=== PATIENT | male | born 1965 | race Caucasian/White ===

== ENCOUNTER 2019-01-20 04:08 | Emergency (ER) | payer OTHER, SELFPAY ==
--- NOTE | 2019-01-20 04:09 | ED.GENADULT ---
HPI - General Adult General Chief complaint: Extremity Problem,Nontraumatic Stated complaint: Right knee and back pain Time Seen by Provider: 01/20/19 04:09 Source: patient Mode of arrival: wheelchair Limitations: no limitations History of Present Illness HPI narrative: 53-year-old male who has had a liver transplant in the past here for evaluation of right knee pain and back pain. Patient does have chronic back pain however he states the pain is he is having now is different from his normal back pain. He also is complaining of right knee pain. He has no specific trauma however states that he has been working out in the yard recently. He also states that he had to move a 10 x 10 wooden wall recently. He states he has had pain for the past several days however things got worse last evening so he came in for evaluation. No fevers. Related Data Home Medications Medication Instructions Recorded Confirmed metoprolol tartrate 25 mg PO BID #0 11/03/17 mycophenolate sodium [Myfortic] 360 mg PO #0 11/03/17 ursodiol [Actigall] 300 mg PO #0 11/03/17 Previous Rx's Medication Instructions Recorded ondansetron 4 mg SUBLINGUAL Q6HP PRN #10 tab 06/02/17 prednisone 20 mg PO DAILY 5 Days #5 tab 01/20/19 Allergies Allergy/AdvReac Type Severity Reaction Status Date / Time venom-honey bee Allergy Severe Unverified 11/21/17 12:17 [BEE VENOM (HONEY BEE)] codeine Allergy Unknown Unverified 11/21/17 12:17 NYQUIL Allergy Unknown Uncoded 11/21/17 12:17 Review of Systems Constitutional Denies fever(s), Denies frequent falls and Denies headache(s) ENT Ears, Nose, Mouth, and Throat: Denies headache(s) Cardiovascular Denies chest pain and Denies dyspnea Respiratory Denies dyspnea Gastrointestinal Gastrointestinal: Denies abdominal pain, Denies nausea and Denies vomiting Musculoskeletal Reports back pain and Reports arthralgias (Right knee) Integumentary/Breasts Denies rash Neurologic Denies behavioral changes, Denies frequent falls and Denies headache(s) Psychiatric Denies behavioral changes Hematologic/Lymphatic Denies easy bleeding and Denies easy bruising [facility], [facility] Medical History Hepatitis C (Acute) Liver cancer (Acute) Surgical History Liver transplant recipient (Acute) Social History Smoking Status: Current every day smoker Social History Smoking Status: Current every day smoker Exam Initial Vital Signs Initial Vital Signs: Vital Signs Temperature 97.8 F 01/20/19 04:15 Pulse Rate 67 01/20/19 04:15 Respiratory Rate 16 01/20/19 04:15 Blood Pressure 127/87 01/20/19 04:15 Pulse Oximetry 95 01/20/19 04:15 Const General: cooperative, comfortable, well developed, well groomed and No acute distress Orientation: alert, awake and oriented x3 HENMT Head: normal to inspection and normocephalic Resp Effort & Inspection: normal respiratory effort Auscultation: clear to auscultation bilaterally Cardio Rate: regular rate Rhythm: regular rhythm GI Inspection: non-distended Palpation: soft, No firm and No tender Back/Spine/Pelvis Thoracic/Lumbar Spine: lumbar spinal tenderness Skin Lesions: no lesions Rashes: no rashes Neuro General: alert and awake Cognition: normal cognition Speech: speech normal Extrem Other: Tenderness to palpation over the pes anserinus also on the posterior aspect of the right knee over the hamstring. Also tenderness palpation along the lateral joint line of the right knee. Psych Appearance: grossly normal and well kempt Course Orders Ordered: ED Orders 01/20/19 04:23 XR knee RT 3V Stat 01/20/19 05:09 Basic Metabolic Panel Stat Complete Blood Count AUTO DIFF Stat Partial Thromboplastin Time Stat Prothrombin Time INR Stat Vital Signs - 8 hr 01/20/19 04:15 Temperature 97.8 F Pulse Rate 67 Respiratory Rate 16 Blood Pressure 127/87 Pulse Oximetry 95 Medical Decision Making Lab Data Lab results reviewed: Yes I reviewed the patient's lab results. Result diagrams: 01/20/19 05:09 01/20/19 05:09 Lab Results 01/20/19 01/20/19 01/20/19 Range/Units 05:09 05:09 05:09 WBC 8.3 (4.5-11.0) X10^3/uL RBC 3.25 L (4.5-5.9) X10^6/uL Hgb 11.3 L (13.5-17.5) g/dL Hct 33.7 L (41-53) % MCV 103.4 H (80-100) fL MCH 34.7 H (26-34) PG MCHC 33.5 (30-36) % RDW 15.4 H (11.6-14.8) % Plt Count 145 L (150-400) X10^3/uL Neut % (Auto) 35.6 L (50-75) % Lymph % (Auto) 48.8 H (25-40) % [place] % (Auto) 12.0 (3-14) % Eos % (Auto) 0.9 L (2-4) % Baso % (Auto) 2.7 H (0-2) % Neut # (Auto) 2900 (6517-8120) /uL Lymph # (Auto) 4000 (2566-8837) /uL [place] # (Auto) 1000 H (0-900) /uL Eos # (Auto) 100 (0-450) /uL Baso # (Auto) 200 H (0-100) /uL PT 11.4 (10.1-12.7) SECONDS INR 1.0 (0.9-1.3) APTT 34 (26.4-36.2) SECONDS Sodium 136 L (137-145) mmol/L Potassium 4.0 (3.4-5.1) mmol/L Chloride 100 (98-107) mmol/L Carbon Dioxide 27 (22-32) mmol/L BUN 40 H (9-20) mg/dL Creatinine 2.50 H (0.66-1.25) mg/dL Estimated GFR 26.9 L (>60) mL/min BUN/Creatinine Ratio 16.0 (6-22) Glucose 97 (70-100) mg/dL Calcium 8.6 (8.4-10.2) mg/dL Imaging Data X-ray right knee: Attestation: I personally reviewed and interpreted this imaging study as follows: My impression: No fracture, no dislocation, MDM Narrative Medical decision making narrative: Patient does have tenderness to palpation in the distribution of the semimembranosus. No fevers. X-ray of his knee is negative. No concerning symptoms for fracture. Will hold on radiologic studies of his back. He is allergic to anything with codeine and that includes Percocet and Vicodin. He cannot take Tylenol 3. He already has a fentanyl patch on for his back pain. He is also already on gabapentin. Informed him he needed to continue these medications. He states that when he has had similar pain in the back is been on a short course of steroids which has helped his symptoms. I will give him a few days of this. He is going to contact his primary doctor for follow-up. Discharge Plan Departure Patient Disposition: Home Clinical Impression: Back pain Qualifiers: Back pain location: low back pain Chronicity: unspecified Back pain laterality: unspecified Sciatica presence: unspecified whether sciatica present Qualified Code(s): M54.5 - Low back pain Knee pain Qualifiers: Chronicity: acute Laterality: right Qualified Code(s): M25.561 - Pain in right knee Instructions: DI for Low Back Pain, Activity May Be Better then Rest for Low Back Pain Recovery Activity Restrictions/Additional Instructions: Take all of your medications as directed. Contact your primary care doctor for a follow-up. Return to the emergency department for any new or worsening symptoms Prescriptions: New prednisone 20 mg tablet 20 mg PO DAILY 5 Days Qty: 5 RF: 0 No Action ondansetron 4 MG tablet,disintegrating 4 mg Sublingual Q6HP PRNQty: 10 RF: 0 mycophenolate sodium [Myfortic] 360 MG tablet,delayed release (DR/EC) 360 mg PO Qty: 0 RF: 0 ursodiol [Actigall] 300 MG capsule 300 mg PO Qty: 0 RF: 0 metoprolol tartrate 25 MG tablet 25 mg PO BID Qty: 0 RF: 0 Referrals: Natacha Rowley MD [Primary Care Provider] -
[2019-01-20 04:15] VITALS: BP 127/87; PULSE 67; RESP 16; TEMP 36.6; O2SAT 95; BMI 37.1
--- NOTE | 2019-01-20 04:23 | DI.RAD.S_ITS ---
PROCEDURE: XR KNEE RT 3V INDICATIONS: pain after fall TECHNIQUE: 3 views of the knee were acquired. COMPARISON: None. FINDINGS: Bones: No fractures or dislocations. No suspicious bony lesions. Soft tissues: No joint effusion. No suspicious soft tissue calcifications. IMPRESSION: No fracture. No osseous lesion. If symptoms and/or clinical suspicion for pathology persists, further assessment with repeat radiographs (7-10 days) or advanced imaging (e.g. CT, MRI or bone scan) may be helpful. Dictated by: Josefina Riddle MD, PhD on 01/20/2019 at 8:37 Approved by: Josefina Riddle MD, PhD on 01/20/2019 at 8:38
--- NOTE | 2019-01-20 04:35 | PC.NURSE ---
Pt reported that he is bruising more than usual. Dr Bo notified, orders for blood test received.
[2019-01-20 05:19] LABS: Add Manual Diff / Slide Review NO; Basophils Absolute Auto 200 /uL (0-100); Basophils Percent Auto 2.7 % (0-2); Eosinophils Absolute Auto 100 /uL (0-450); Eosinophils Percent Auto 0.9 % (2-4); Hematocrit 33.7 % (41-53); Hemoglobin 11.3 g/dL (13.5-17.5); Lymphocytes Absolute Auto 4000 /uL (1100-4500); Lymphocytes Percent Auto 48.8 % (25-40); Mean Corpuscular HGB Conc 33.5 % (30-36); Mean Corpuscular Hemoglobin 34.7 PG (26-34); Mean Corpuscular Volume 103.4 fL (80-100); Monocytes Absolute Auto 1000 /uL (0-900); Neutrophils Absolute Auto 2900 /uL (1500-7000); Neutrophils Percent Auto 35.6 % (50-75); Platelet Count 145 X10^3/uL (150-400); Red Blood Cell Count 3.25 X10^6/uL (4.5-5.9); Red Cell Distribution Width 15.4 % (11.6-14.8); White Blood Cell Count 8.3 X10^3/uL (4.5-11.0)
[2019-01-20 05:25] LABS: Prothrombin Time 11.4 SECONDS (10.1-12.7)
[2019-01-20 05:27] LABS: PTT Partial Thromboplastin Tim 34 SECONDS (26.4-36.2)
[2019-01-20 05:29] LABS: Blood Urea Nitrogen 40 mg/dL (9-20); Calcium 8.6 mg/dL (8.4-10.2); Carbon Dioxide 27 mmol/L (22-32); Chloride 100 mmol/L (98-107); Estimated Glomerular Filt Rate 26.9 mL/min (>60); Glucose 97 mg/dL (70-100); HEMOLYSIS < 15 (0-50); Sodium 136 mmol/L (137-145)
[2019-01-20 05:46] VITALS: BP 102/62; PULSE 78; RESP 17; O2SAT 95
== END 2019-01-20 05:55 | disposition home or self-care (01) ==
PROVIDERS: Emergency Provider Emergency Medicine; Family Provider Internal Medicine; PCP Internal Medicine
DX: M54.5 Low back pain (principal); M25.561 Pain in right knee
CPT/HCPCS: 36415; 73562; 80048; 85025; 85610; 85730; 99282; 99284

== ENCOUNTER 2020-01-14 16:25 | Emergency (ER) | payer OTHER, MEDICAID, SELFPAY ==
[2020-01-14] VITALS (9 sets, daily range): BP systolic 95–122; BP diastolic 54–76; PULSE 68–98; RESP 12–24; TEMP 36.9; O2SAT 93–100; BMI 31.1
[2020-01-14 16:56] LABS: Add Manual Diff / Slide Review NO; Basophils Absolute Auto 100 /uL (0-100); Eosinophils Absolute Auto 0 /uL (0-450); Eosinophils Percent Auto 0.3 % (2-4); Hematocrit 33.3 % (41-53); Hemoglobin 11.3 g/dL (13.5-17.5); Lymphocytes Absolute Auto 5100 /uL (1100-4500); Lymphocytes Percent Auto 46.3 % (25-40); Mean Corpuscular HGB Conc 33.9 % (30-36); Mean Corpuscular Hemoglobin 33.9 PG (26-34); Mean Corpuscular Volume 99.9 fL (80-100); Monocytes Absolute Auto 1200 /uL (0-900); Monocytes Percent Auto 11.2 % (3-14); Neutrophils Absolute Auto 4500 /uL (1500-7000); Neutrophils Percent Auto 41.2 % (50-75); Platelet Count 106 X10^3/uL (150-400); Red Blood Cell Count 3.34 X10^6/uL (4.5-5.9); Red Cell Distribution Width 19.1 % (11.6-14.8)
[2020-01-14] MEDS: SODIUM CHLORIDE 0.9% 1,000 ML 1000 ML IV (16:59)
[2020-01-14 17:07] LABS: Alanine Aminotransferase 33 IU/L (<50); Albumin 3.4 g/dL (3.5-5.0); Albumin Globulin Ratio 0.9 (1.0-2.8); Alkaline Phosphatase 326 U/L (38-126); Aspartate Aminotransferase 76 IU/L (17-59); BUN Creatinine Ratio 15.1 (6-22); Bilirubin Total 1.8 mg/dL (0.2-1.3); Blood Urea Nitrogen 36 mg/dL (9-20); Calcium 8.7 mg/dL (8.4-10.2); Carbon Dioxide 22 mmol/L (22-32); Chloride 105 mmol/L (98-107); Estimated Glomerular Filt Rate 28.4 mL/min (>60); Globulin 3.8 g/dL (1.7-4.1); Glucose 140 mg/dL (70-100); HEMOLYSIS < 15 (0-50); Lipase 20 U/L (23-300); Potassium 3.4 mmol/L (3.4-5.1); Sodium 137 mmol/L (137-145); Total Protein 7.2 g/dL (6.3-8.2)
[2020-01-14 17:26] LABS: Prothrombin Time 11.2 SECONDS (10.1-12.7)
--- NOTE | 2020-01-14 17:26 | ED_ITS ---
HPI - General Adult <Juan F Bo DO - Last Filed: 01/15/20 07:10> General Chief complaint: Syncope Stated complaint: syncopal episodes x 2 today/dizzy standing Time Seen by Provider: 01/14/20 17:05 Source: patient Mode of arrival: EMS Limitations: no limitations History of Present Illness HPI narrative: 54-year-old male history of liver transplant secondary to hepatitis-C/cirrhosis/cancer after a blood transfusion in the 80s. This was performed approximately 7 years ago. He is followed by [facility]. Approximately 6 weeks ago patient was admitted to [facility] for dizziness. Spent several days in the hospital. Was found that his ammonia level was elevated. He has been on lactulose since then. He states that he takes lactulose once a day and has multiple loose bowel movements a day. He also admits to drinking alcohol. He states he is here that because the past several days he has had dizziness and passing out upon standing. He denies any prodromal symptoms except feeling very lightheaded. No chest pain or shortness of breath or palpitations. He states that he potentially can prevent the symptoms from happening if he stands up slowly but he does admit that it can happen even after he has been standing for short period of time. He states he has had decreased oral intake of both food and fluid recently. He states that his falls has caused him to hit his head and he has a bruise in the left side of his head. He also complains of right-sided jaw pain which causes him to have problems eating. Related Data Home Medications Medication Instructions Recorded Confirmed B complex-vitamin C-folic acid 1 tab PO DAILY 01/14/20 01/14/20 [Kellie-Ramila] acetaminophen [Tylenol] 650 mg PO Q8HR PRN 01/14/20 01/14/20 allopurinol 100 mg PO DAILY 01/14/20 01/14/20 cyclobenzaprine 10 mg PO BEDTIME PRN 01/14/20 01/14/20 cyclosporine 25 mg PO BID 01/14/20 01/14/20 cyclosporine modified 25 mg PO BID 01/14/20 01/14/20 docusate sodium 250 mg PO BID PRN 01/14/20 01/14/20 duloxetine [Cymbalta] 20 mg PO DAILY 01/14/20 01/14/20 fentanyl See Rx Instructions .ROUTE .COMPLEX 01/14/20 01/14/20 furosemide 20 mg PO DAILY 01/14/20 01/14/20 gabapentin 300 mg PO BID 01/14/20 01/14/20 hydroxyzine pamoate [Vistaril] 25 mg PO BEDTIME PRN 01/14/20 01/14/20 lactulose 30 ml PO TID 01/14/20 01/14/20 lidocaine [Lidoderm] 1 patch TOPICAL DAILY 01/14/20 01/14/20 metoprolol succinate 75 mg PO DAILY 01/14/20 01/14/20 mycophenolate mofetil [CellCept] 500 mg PO BID 01/14/20 01/14/20 mycophenolate sodium [Myfortic] 360 mg PO BID 01/14/20 01/14/20 naloxone [Narcan] 1 spray INTRANASAL NOW PRN 01/14/20 01/14/20 ondansetron HCl [Zofran] 4 mg PO Q8H PRN 01/14/20 01/14/20 pantoprazole [Protonix] 20 mg PO DAILY 01/14/20 01/14/20 pyridoxine (vitamin B6) 50 mg PO DAILY 01/14/20 01/14/20 quetiapine [Seroquel] 25 mg PO BEDTIME 01/14/20 01/14/20 rifaximin 550 mg PO BID 01/14/20 01/14/20 ursodiol 300 mg PO BID 01/14/20 01/14/20 Allergies Allergy/AdvReac Type Severity Reaction Status Date / Time venom-honey bee Allergy Severe Wheezing Unverified 01/14/20 21:48 [BEE VENOM (HONEY BEE)] codeine Allergy Unknown Unverified 11/21/17 12:17 NSAIDS (Non-Steroidal Allergy Verified 01/14/20 21:48 Anti-Inflamma adhesive tape AdvReac Verified 01/14/20 21:48 copper AdvReac Verified 01/14/20 21:48 dextromethorphan AdvReac Verified 01/14/20 21:48 morphine AdvReac Vomiting Verified 01/14/20 21:48 oxycodone AdvReac Vomiting Verified 01/14/20 21:48 pseudoephedrine AdvReac Verified 01/14/20 21:48 tizanidine AdvReac Verified 01/14/20 21:48 NYQUIL Allergy Unknown Uncoded 11/21/17 12:17 Review of Systems <DO Abdiaziz Rocha Last Filed: 01/15/20 07:10> Constitutional Constitutional: Denies body ache(s), Reports fatigue, Denies fever(s), Reports frequent falls and Denies headache(s) Eyes Eyes: Denies change in vision ENT Ears, Nose, Mouth, and Throat: Denies vertigo, Reports dizziness and Denies headache(s) Comments: Right-sided jaw pain Cardiovascular Cardiovascular: Denies chest pain and Denies dyspnea Comments: No palpitations Respiratory Respiratory: Denies cough and Denies dyspnea Gastrointestinal Gastrointestinal: Denies abdominal pain, Denies diarrhea, Denies nausea and Denies vomiting Genitourinary Genitourinary: Denies dysuria Genitourinary: Denies dysuria Musculoskeletal Musculoskeletal: Denies back pain and Denies myalgias Integumentary/Breasts Skin/Breast: Denies lesions and Denies rash Neurologic Neurologic: Reports behavioral changes, Denies vertigo, Reports dizziness, Reports frequent falls, Denies headache(s) and Denies convulsions Psychiatric Psychiatric: Reports behavioral changes Endocrine Endocrine: Reports fatigue Hematologic/Lymphatic Hematologic/Lymphatic: Denies easy bleeding and Denies easy bruising Allergic/Immunologic Allergic/Immunologic: Denies urticaria Patient History <DO Abdiaziz Rocha Last Filed: 01/15/20 07:10> Medical History Hepatitis C (Acute) Liver cancer (Acute) Surgical History Liver transplant recipient (Acute) Social History Smoking Status: Current some day smoker Smoking Status: Current some day smoker alcohol intake frequency: a few times a week Alcohol type: hard liquor Substance Use Type: marijuana Exam <DO Abdiaziz Rocha Last Filed: 01/15/20 07:10> Initial Vital Signs Initial Vital Signs: Vital Signs Temperature 98.4 F 01/14/20 16:30 Pulse Rate 94 H 01/14/20 16:30 Respiratory Rate 18 01/14/20 16:30 Blood Pressure 106/68 01/14/20 16:30 Pulse Oximetry 94 01/14/20 16:30 Const General: No acute distress Limitations: mental status not altered HENMT Head: normal to inspection and normocephalic Ears: TM's normal bilaterally Nose: external nose normal Face and sinus: other (Fullness right-sided face over TMJ) Mouth: oral mucosae normal Eyes Pupils: PERRL Resp Effort & Inspection: normal respiratory effort Auscultation: clear to auscultation bilaterally Cardio Rate: regular rate Rhythm: regular rhythm GI Inspection: non-distended Palpation: soft Skin Lesions: no lesions Rashes: no rashes Neuro General: patient alert, patient awake and patient oriented x3 Cognition: normal cognition Speech: speech normal Extrem General: normal to inspection and capillary refill normal Psych Appearance: grossly normal and well kempt <Wanda Tang MD - Last Filed: 01/14/20 21:49> Initial Vital Signs Initial Vital Signs: Vital Signs Temperature 98.4 F 01/14/20 16:30 Pulse Rate 94 H 01/14/20 16:30 Respiratory Rate 18 01/14/20 16:30 Blood Pressure 106/68 01/14/20 16:30 Pulse Oximetry 94 01/14/20 16:30 Scores <Juan F Bo DO - Last Filed: 01/15/20 07:10> GCS Celina coma scale eye opening: Spontaneous Celina coma scale verbal response: Orientated Atul coma scale motor response: Obey commands Atul coma scale total score: 15 Course <Juan F Bo DO - Last Filed: 01/15/20 07:10> Orders Ordered: Discontinued Medications Sodium Chloride (Normal Saline 0.9%) 1,000 mls @ 1,000 mls/hr IV BOLUS ONE Stop: 01/14/20 17:37 Last Infusion: 01/14/20 19:13 Dose: 0 mls/hr Documented by: Admin: 01/14/20 16:59 Dose: 1,000 mls/hr Documented by: SUSANNAH Sodium Chloride (Normal Saline 0.9%) 1,000 mls @ 125 mls/hr IV CONT JUNIOR Last Infusion: 01/14/20 21:35 Dose: 0 mls/hr Documented by: Admin: 01/14/20 19:14 Dose: 125 mls/hr Documented by: SUSANNAH Vital Signs Vital signs: Vital Signs - 8 hr 01/14/20 16:30 01/14/20 17:40 01/14/20 18:43 Temperature 98.4 F Pulse Rate 94 H 85 68 Pulse Rate [Orthostatic Lying] Pulse Rate [Orthostatic Sitting] Pulse Rate [Orthostatic Standing] Respiratory Rate 18 22 16 Blood Pressure 106/68 Blood Pressure [Left Arm] 119/66 95/54 L Blood Pressure [Orthostatic Lying] Blood Pressure [Orthostatic Sitting] Blood Pressure [Orthostatic Standing] Pulse Oximetry 94 97 98 01/14/20 19:00 01/14/20 19:30 01/14/20 20:18 Temperature Pulse Rate 79 84 80 Pulse Rate [Orthostatic Lying] Pulse Rate [Orthostatic Sitting] Pulse Rate [Orthostatic Standing] Respiratory Rate 16 12 24 Blood Pressure Blood Pressure [Left Arm] 101/63 103/64 107/68 Blood Pressure [Orthostatic Lying] Blood Pressure [Orthostatic Sitting] Blood Pressure [Orthostatic Standing] Pulse Oximetry 93 95 94 01/14/20 21:25 01/14/20 21:42 Temperature 98.4 F Pulse Rate 79 Pulse Rate [Orthostatic Lying] 88 Pulse Rate [Orthostatic Sitting] 92 H Pulse Rate [Orthostatic Standing] 98 H Respiratory Rate 16 Blood Pressure Blood Pressure [Left Arm] 119/76 Blood Pressure [Orthostatic Lying] 115/72 Blood Pressure [Orthostatic Sitting] 121/72 Blood Pressure [Orthostatic Standing] 122/69 Pulse Oximetry 98 <Wanda Tang MD - Last Filed: 01/14/20 21:49> Orders Ordered: Discontinued Medications Sodium Chloride (Normal Saline 0.9%) 1,000 mls @ 1,000 mls/hr IV BOLUS ONE Stop: 01/14/20 17:37 Last Infusion: 01/14/20 19:13 Dose: 0 mls/hr Documented by: Admin: 01/14/20 16:59 Dose: 1,000 mls/hr Documented by: SUSANNAH Sodium Chloride (Normal Saline 0.9%) 1,000 mls @ 125 mls/hr IV CONT JUNIOR Last Infusion: 01/14/20 21:35 Dose: 0 mls/hr Documented by: Admin: 01/14/20 19:14 Dose: 125 mls/hr Documented by: SUSANNAH Vital Signs Vital signs: Vital Signs - 8 hr 01/14/20 16:30 01/14/20 17:40 01/14/20 18:43 Temperature 98.4 F Pulse Rate 94 H 85 68 Pulse Rate [Orthostatic Lying] Pulse Rate [Orthostatic Sitting] Pulse Rate [Orthostatic Standing] Respiratory Rate 18 22 16 Blood Pressure 106/68 Blood Pressure [Left Arm] 119/66 95/54 L Blood Pressure [Orthostatic Lying] Blood Pressure [Orthostatic Sitting] Blood Pressure [Orthostatic Standing] Pulse Oximetry 94 97 98 01/14/20 19:00 01/14/20 19:30 01/14/20 20:18 Temperature Pulse Rate 79 84 80 Pulse Rate [Orthostatic Lying] Pulse Rate [Orthostatic Sitting] Pulse Rate [Orthostatic Standing] Respiratory Rate 16 12 24 Blood Pressure Blood Pressure [Left Arm] 101/63 103/64 107/68 Blood Pressure [Orthostatic Lying] Blood Pressure [Orthostatic Sitting] Blood Pressure [Orthostatic Standing] Pulse Oximetry 93 95 94 01/14/20 21:25 01/14/20 21:42 Temperature 98.4 F Pulse Rate 79 Pulse Rate [Orthostatic Lying] 88 Pulse Rate [Orthostatic Sitting] 92 H Pulse Rate [Orthostatic Standing] 98 H Respiratory Rate 16 Blood Pressure Blood Pressure [Left Arm] 119/76 Blood Pressure [Orthostatic Lying] 115/72 Blood Pressure [Orthostatic Sitting] 121/72 Blood Pressure [Orthostatic Standing] 122/69 Pulse Oximetry 98 Medical Decision Making <Juan F Bo, - Last Filed: 01/15/20 07:10> Lab Data Result diagrams: 01/14/20 16:45 01/14/20 16:45 Labs: Lab Results 01/14/20 01/14/20 01/14/20 Range/Units 16:45 16:45 16:45 WBC 11.0 (4.5-11.0) X10^3/uL RBC 3.34 L (4.5-5.9) X10^6/uL Hgb 11.3 L (13.5-17.5) g/dL Hct 33.3 L (41-53) % MCV 99.9 (80-100) fL MCH 33.9 (26-34) PG MCHC 33.9 (30-36) % RDW 19.1 H (11.6-14.8) % Plt Count 106 L (150-400) X10^3/uL Neut % (Auto) 41.2 L (50-75) % Lymph % (Auto) 46.3 H (25-40) % Wake % (Auto) 11.2 (3-14) % Eos % (Auto) 0.3 L (2-4) % Baso % (Auto) 1.0 (0-2) % Neut # (Auto) 4500 (9071-3576) /uL Lymph # (Auto) 5100 H (4144-0655) /uL Wake # (Auto) 1200 H (0-900) /uL Eos # (Auto) 0 (0-450) /uL Baso # (Auto) 100 (0-100) /uL PT (10.1-12.7) SECONDS INR (0.9-1.3) APTT (26.4-36.2) SECONDS Sodium 137 (137-145) mmol/L Potassium 3.4 (3.4-5.1) mmol/L Chloride 105 (98-107) mmol/L Carbon Dioxide 22 (22-32) mmol/L BUN 36 H (9-20) mg/dL Creatinine 2.38 H (0.66-1.25) mg/dL Estimated GFR 28.4 L (>60) mL/min BUN/Creatinine Ratio 15.1 (6-22) Glucose 140 H (70-100) mg/dL Calcium 8.7 (8.4-10.2) mg/dL Total Bilirubin 1.8 H (0.2-1.3) mg/dL AST 76 H (17-59) IU/L ALT 33 (<50) IU/L Alkaline Phosphatase 326 H (38-126) U/L Ammonia 20 (9-30) umol/L Total Protein 7.2 (6.3-8.2) g/dL Albumin 3.4 L (3.5-5.0) g/dL Globulin 3.8 (1.7-4.1) g/dL Albumin/Globulin Ratio 0.9 L (1.0-2.8) Lipase 20 L (23-300) U/L Ethyl Alcohol ( - 10) mg/dL 01/14/20 01/14/20 Range/Units 16:45 16:45 WBC (4.5-11.0) X10^3/uL RBC (4.5-5.9) X10^6/uL Hgb (13.5-17.5) g/dL Hct (41-53) % MCV (80-100) fL MCH (26-34) PG MCHC (30-36) % RDW (11.6-14.8) % Plt Count (150-400) X10^3/uL Neut % (Auto) (50-75) % Lymph % (Auto) (25-40) % Wake % (Auto) (3-14) % Eos % (Auto) (2-4) % Baso % (Auto) (0-2) % Neut # (Auto) (5787-3502) /uL Lymph # (Auto) (8620-8617) /uL Wake # (Auto) (0-900) /uL Eos # (Auto) (0-450) /uL Baso # (Auto) (0-100) /uL PT 11.2 (10.1-12.7) SECONDS INR 1.0 (0.9-1.3) APTT 30 D (26.4-36.2) SECONDS Sodium (137-145) mmol/L Potassium (3.4-5.1) mmol/L Chloride (98-107) mmol/L Carbon Dioxide (22-32) mmol/L BUN (9-20) mg/dL Creatinine (0.66-1.25) mg/dL Estimated GFR (>60) mL/min BUN/Creatinine Ratio (6-22) Glucose (70-100) mg/dL Calcium (8.4-10.2) mg/dL Total Bilirubin (0.2-1.3) mg/dL AST (17-59) IU/L ALT (<50) IU/L Alkaline Phosphatase (38-126) U/L Ammonia (9-30) umol/L Total Protein (6.3-8.2) g/dL Albumin (3.5-5.0) g/dL Globulin (1.7-4.1) g/dL Albumin/Globulin Ratio (1.0-2.8) Lipase (23-300) U/L Ethyl Alcohol 131 H ( - 10) mg/dL Imaging Data CT face: Radiologist's Impression: [address] [address] [address] Scan Report Signed Patient: Lashaun,Earnest [facility]#: [id number] : 1965Acct:[id number] Age/Sex: 54 / MDate of Service: 01/14/20 Loc: ED Accession Number: [id number] Procedure: CT facial bones wo con Ordering Provider: Juan F Bo D.O. PROCEDURE: CT FACIAL BONES WO CON INDICATIONS: Fall, hit right side of face, right jaw pain TECHNIQUE: Noncontrast 2.5 mm thick axial images acquired from the mandible through the frontal sinuses, with coronal and sagittal reformatting. For radiation dose reduction, the following was used: automated exposure control, adjustment of mA and/or kV according to patient size. COMPARISON: None. FINDINGS: Image quality: Excellent. Bones and teeth: Orbital arthur are intact. Sinus arthur show no fracture or deformity. Nasal bones and septum are intact. Visualized portions of the mandible demonstrate no fractures or subluxation. Zygomatic arches are intact. Pterygoid plates are intact. Visualized portions of the skull base and auditory canals are intact. Partially visualized C5-C6 fixation hardware. No fracture identified in the visualized cervical spine. Sinuses: Mild mucosal thickening noted in the floor of the right maxillary sinus. Mastoid air cells are aerated. Soft tissues: No edema, masses, or fluid collections. No enlarged lymph nodes. No soft tissue lacerations or debris. Vascular: Visualized vascular structures appear normal in the absence of contrast. Bony vascular foramina and canals are intact. IMPRESSION: No fracture. Dictated by: Josefina Riddle MD, PhD on 01/14/2020 at 17:53 Approved by: Josefina Riddle MD, PhD on 01/14/2020 at 17:56 CT scan - head: Radiologist's Impression: [place] [address] CT Scan Report Signed Patient: Earnest Wilks [facility]#: [id number] : 1965Acct:[id number] Age/Sex: 54 / MDate of Service: 01/14/20 Loc: ED Accession Number: [id number] Procedure: CT head/brain wo con Ordering Provider: Juan F Bo D.O. PROCEDURE: CT HEAD/BRAIN WO CON INDICATIONS: Fall, hit head, vertigo TECHNIQUE: Noncontrast 4.5 mm thick angled axial sections acquired from the foramen magnum to the vertex, with coronal and sagittal reformats. For radiation dose reduction, the following was used: automated exposure control, adjustment of mA and/or kV according to patient size. COMPARISON: [facility], CT, CT HEAD WITHOUT CONTRAST, 11/25/2019, 14:52. FINDINGS: Image quality: Excellent. CSF spaces: Basal cisterns are patent. No extra-axial fluid collections. The ventricles are symmetric in size and shape. Brain: No intracranial bleeds or masses. There is cerebral volume loss for age, with resultant ventricular and sulcal prominence. There are periventricular and deep white matter chronic small vessel ischemic changes. There is intracranial internal carotid artery atherosclerosis. Skull and face: Calvarium and visualized facial bones appear intact, without suspicious lesions. Sinuses: Visualized sinuses and mastoids are clear. IMPRESSION: No acute intracranial disease process. Dictated by: Josefina Riddle MD, PhD on 01/14/2020 at 17:51 Approved by: Josefina Riddle MD, PhD on 01/14/2020 at 17:53 ECG Data Attestation: I personally reviewed and interpreted this ECG as follows: Prior ECG tracings: not available for review Interpretation: Sinus rhythm Ventricular rate of 97 Occasional PACs Normal QRS Normal QTC MDM Narrative Medical decision making narrative: Patient's ammonia levels unremarkable. Head CT is unremarkable. CT scan of the face shows no mandibular fractures. Patient's kidney function is at baseline. Bilirubin is at baseline. Patient's alcohol level was elevated. I suspect that his dizziness is related to his alcohol intake and also potential orthostasis given his diarrhea. Fluids administered. Care turned over to Dr. Tang to follow-up when patient becomes clinically sober. <Wanda Tang MD - Last Filed: 01/14/20 21:49> Medical Records Medical records reviewed: Yes I reviewed the patient's medical records. Lab Data Lab results reviewed: Yes I reviewed the patient's lab results. Labs: Lab Results 01/14/20 01/14/20 01/14/20 Range/Units 16:45 16:45 16:45 WBC 11.0 (4.5-11.0) X10^3/uL RBC 3.34 L (4.5-5.9) X10^6/uL Hgb 11.3 L (13.5-17.5) g/dL Hct 33.3 L (41-53) % MCV 99.9 (80-100) fL MCH 33.9 (26-34) PG MCHC 33.9 (30-36) % RDW 19.1 H (11.6-14.8) % Plt Count 106 L (150-400) X10^3/uL Neut % (Auto) 41.2 L (50-75) % Lymph % (Auto) 46.3 H (25-40) % Wake % (Auto) 11.2 (3-14) % Eos % (Auto) 0.3 L (2-4) % Baso % (Auto) 1.0 (0-2) % Neut # (Auto) 4500 (5788-9621) /uL Lymph # (Auto) 5100 H (3531-3838) /uL Wake # (Auto) 1200 H (0-900) /uL Eos # (Auto) 0 (0-450) /uL Baso # (Auto) 100 (0-100) /uL PT (10.1-12.7) SECONDS INR (0.9-1.3) APTT (26.4-36.2) SECONDS Sodium 137 (137-145) mmol/L Potassium 3.4 (3.4-5.1) mmol/L Chloride 105 (98-107) mmol/L Carbon Dioxide 22 (22-32) mmol/L BUN 36 H (9-20) mg/dL Creatinine 2.38 H (0.66-1.25) mg/dL Estimated GFR 28.4 L (>60) mL/min BUN/Creatinine Ratio 15.1 (6-22) Glucose 140 H (70-100) mg/dL Calcium 8.7 (8.4-10.2) mg/dL Total Bilirubin 1.8 H (0.2-1.3) mg/dL AST 76 H (17-59) IU/L ALT 33 (<50) IU/L Alkaline Phosphatase 326 H (38-126) U/L Ammonia 20 (9-30) umol/L Total Protein 7.2 (6.3-8.2) g/dL Albumin 3.4 L (3.5-5.0) g/dL Globulin 3.8 (1.7-4.1) g/dL Albumin/Globulin Ratio 0.9 L (1.0-2.8) Lipase 20 L (23-300) U/L Ethyl Alcohol ( - 10) mg/dL 01/14/20 01/14/20 Range/Units 16:45 16:45 WBC (4.5-11.0) X10^3/uL RBC (4.5-5.9) X10^6/uL Hgb (13.5-17.5) g/dL Hct (41-53) % MCV (80-100) fL MCH (26-34) PG MCHC (30-36) % RDW (11.6-14.8) % Plt Count (150-400) X10^3/uL Neut % (Auto) (50-75) % Lymph % (Auto) (25-40) % Wake % (Auto) (3-14) % Eos % (Auto) (2-4) % Baso % (Auto) (0-2) % Neut # (Auto) (7062-5337) /uL Lymph # (Auto) (5995-0812) /uL Wake # (Auto) (0-900) /uL Eos # (Auto) (0-450) /uL Baso # (Auto) (0-100) /uL PT 11.2 (10.1-12.7) SECONDS INR 1.0 (0.9-1.3) APTT 30 D (26.4-36.2) SECONDS Sodium (137-145) mmol/L Potassium (3.4-5.1) mmol/L Chloride (98-107) mmol/L Carbon Dioxide (22-32) mmol/L BUN (9-20) mg/dL Creatinine (0.66-1.25) mg/dL Estimated GFR (>60) mL/min BUN/Creatinine Ratio (6-22) Glucose (70-100) mg/dL Calcium (8.4-10.2) mg/dL Total Bilirubin (0.2-1.3) mg/dL AST (17-59) IU/L ALT (<50) IU/L Alkaline Phosphatase (38-126) U/L Ammonia (9-30) umol/L Total Protein (6.3-8.2) g/dL Albumin (3.5-5.0) g/dL Globulin (1.7-4.1) g/dL Albumin/Globulin Ratio (1.0-2.8) Lipase (23-300) U/L Ethyl Alcohol 131 H ( - 10) mg/dL Imaging Data CT scan - head: Radiologist's Impression: IMPRESSION: No acute intracranial disease pro cess. Dictated by: Josefina Riddle MD, PhD on 01/14/2020 at 17:[address]: Radiologist's Impression: FINDINGS: Image quality: Excellent. Bones and teeth: Orbital arthur are intact. Sinus arthur show no fracture or def ormity. Nasal bones and septum are intact. Visualized portions of the mandible demonstrate no fractures or subluxation. Zygomatic arches are intact. Pterygoid plates are intact. Visualized portions of the skull base and auditory canals are intact. Partially visualized C5-C6 fixation hardware. No fracture identified in the visualized cervical spine. Sinuses: Mild mucosal thickening noted in the floor of the right maxillary sinus. Mastoid air cells are aerated. Soft tissues: No edema, masses, or fluid collections. No enlarged lymph nodes. No soft tissue lacerations or debris. Vascular: Visualized vascular structures appear normal in the absence of contrast. Bony vascular foramina and canals are intact. IMPRESSION: No fracture. Dictated by: Josefina Riddle MD, PhD on 01/14/2020 at 17:53 MDM Narrative Medical decision making narrative: 931pm care is assumed from Dr Bo. Patient presents with a syncopal episode. He status post liver transplant is again drinking and has not alcohol level of 150. Renal insufficiency with a creatinine in the 2.3-2.5 range. He has had a L and a half of fluid and is no longer orthostatic. Feeling significantly better with 5 hours to sober up in the emergency department. He is no longer near syncopal and is safe for home discharge Patient states that he was drinking today because his fentanyl patch and gabapentin were not adequate to control the right-sided jaw pain. Does not specifically describe any trauma however he does have a contusion to his head and I suspect that trauma was involved with the jaw. CT scans of the head and t he face have not shown any acute fractures. We talked about not eating foods that require significant chewing and using ice to the TMJ on the right side. Strongly reiterated that drinking to control the pain is absolutely inappropriate in the setting of liver transplant. Discharge Plan Departure Patient Disposition: Home Clinical Impression: History of liver transplant with complex vascular reconstruction Alcohol intoxication Qualifiers: Complication of substance-induced condition: uncomplicated Qualified Code(s): F10.920 - Alcohol use, unspecified with intoxication, uncomplicated Syncope Qualifiers: Syncope type: unspecified Qualified Code(s): R55 - Syncope and collapse Chronic renal insufficiency Qualifiers: Chronic kidney disease stage: unspecified stage Qualified Code(s): N18.9 - Chronic kidney disease, unspecified Contusion of head Qualifiers: Encounter type: initial encounter Contusion of head detail: other part of head Qualified Code(s): S00.83XA - Contusion of other part of head, initial encounter Temporomandibular joint (TMJ) pain Qualifiers: Laterality: right Qualified Code(s): M26.621 - Arthralgia of right temporomandibular joint Discharge Date/Time: 01/14/20 22:30 Activity Restrictions/Additional Instructions: Thank you for coming in today A believes that your passing out was related to dehydration as well as acute alcohol intoxication. You mention that you are drinking this morning because the pain in your right jaw/TMJ was not being controlled. You describe no trauma to that area. You did have a CT scan of both your head and your face that did not suggest any acute fractures, swelling or infection. I suspect that you injured the jaw in some way. It should begin to feel better within the next day or 2. You currently are using your fentanyl patch and gabapentin I would encourage you to add ice to the jaw area. Using alcohol to help your pain in the setting of a liver transplant is absolutely contraindicated. You need to not drink alcohol If you are still having jaw pain please contact your primary care physician If you are noticing that you are having increasing falls or feeling that you going to pass out please return to the emergency department Prescriptions: No Action quetiapine [Seroquel] 25 mg Tablet 25 mg PO BEDTIME RF: 0 cyclobenzaprine 10 mg Tablet 10 mg PO BEDTIME PRN (Reason: Spasms) RF: 0 cyclosporine modified 25 mg Capsule 25 mg PO BID RF: 0 ondansetron HCl [Zofran] 4 mg Tablet 4 mg PO Q8H PRN (Reason: Nausea) RF: 0 allopurinol 100 mg Tablet 100 mg PO DAILY RF: 0 cyclosporine 25 mg Capsule 25 mg PO BID RF: 0 pantoprazole [Protonix] 20 mg Tablet,Delayed Release (Dr/Ec) 20 mg PO DAILY RF: 0 mycophenolate mofetil [CellCept] 500 mg Tablet 500 mg PO BID RF: 0 lidocaine [Lidoderm] 5 % Adhesive Patch,Medicated 1 patch TOPICAL DAILY RF: 0 ursodiol 300 mg Capsule 300 mg PO BID RF: 0 gabapentin 300 mg Capsule 300 mg PO BID RF: 0 Kellie-Ramila 0.8 mg Tablet 1 tab PO DAILY RF: 0 furosemide 20 mg Tablet 20 mg PO DAILY RF: 0 pyridoxine (vitamin B6) 100 mg Tablet 50 mg PO DAILY RF: 0 fentanyl 25 mcg/hr Patch 72 Hour See Rx Instructions .ROUTE .COMPLEX RF: 0 docusate sodium 250 mg Capsule 250 mg PO BID PRN (Reason: Constipation) RF: 0 hydroxyzine pamoate [Vistaril] 25 mg Capsule 25 mg PO BEDTIME PRN (Reason: Itching) RF: 0 mycophenolate sodium [Myfortic] 360 mg Tablet,Delayed Release (Dr/Ec) 360 mg PO BID RF: 0 duloxetine [Cymbalta] 20 mg Capsule,Delayed Release(Dr/Ec) 20 mg PO DAILY RF: 0 lactulose 10 gram/15 mL Solution 30 ml PO TID RF: 0 acetaminophen [Tylenol] 325 mg Capsule 650 mg PO Q8HR PRN (Reason: Pain, Moderate) RF: 0 rifaximin 550 mg Tablet 550 mg PO BID RF: 0 Narcan 4 mg/actuation [place],Non-Aerosol 1 spray INTRANASAL NOW PRN (Reason: (Drug) Ingestion) RF: 0 metoprolol succinate 25 mg Capsule,Sprinkle,Er 24hr 75 mg PO DAILY RF: 0 Referrals: Natacha Rowley MD [Primary Care Provider] -
[2020-01-14 17:28] LABS: PTT Partial Thromboplastin Tim 30 SECONDS (26.4-36.2)
[2020-01-14 17:30] LABS: Ammonia (NH3) 20 umol/L (9-30)
[2020-01-14 18:04] LABS: Ethanol (ETOH) 131 mg/dL
[2020-01-14] MEDS: SODIUM CHLORIDE 0.9% 1,000 ML 125 ML IV (19:14)
== END 2020-01-14 22:30 | disposition home or self-care (01) ==
PROVIDERS: Emergency Provider Emergency Medicine; Family Provider Internal Medicine; PCP Internal Medicine
DX: R55 Syncope and collapse (principal); F10.920 Alcohol use, unspecified with intoxication, uncomplicated; N18.9 Chronic kidney disease, unspecified; S00.83XA Contusion of other part of head, initial encounter; M26.621 Arthralgia of right temporomandibular joint; Z94.4 Liver transplant status
CPT/HCPCS: 36415; 70450; 70486; 80053; 80320; 82140; 83690; 85025; 85610; 85730; 93005; 96360; 96361; 99284

== ENCOUNTER 2020-05-13 21:52 | Emergency (ER) | payer OTHER, MEDICAID, SELFPAY ==
[2020-05-13] VITALS (10 sets, daily range): BP systolic 147–176; BP diastolic 78–98; PULSE 69–114; RESP 20; TEMP 36.8; O2SAT 88–99; BMI 28.7
[2020-05-13 22:18] LABS: Add Manual Diff / Slide Review NO; Basophils Absolute Auto 300 /uL (0-100); Basophils Percent Auto 1.8 % (0-2); Eosinophils Absolute Auto 0 /uL (0-450); Hemoglobin 13.5 g/dL (13.5-17.5); Lymphocytes Absolute Auto 5800 /uL (1100-4500); Lymphocytes Percent Auto 31.6 % (25-40); Mean Corpuscular HGB Conc 33.8 % (30-36); Mean Corpuscular Hemoglobin 32.7 PG (26-34); Mean Corpuscular Volume 96.8 fL (80-100); Monocytes Absolute Auto 700 /uL (0-900); Monocytes Percent Auto 3.9 % (3-14); Neutrophils Absolute Auto 11600 /uL (1500-7000); Neutrophils Percent Auto 62.7 % (50-75); Platelet Count 168 X10^3/uL (150-400); Red Blood Cell Count 4.13 X10^6/uL (4.5-5.9); Red Cell Distribution Width 16.9 % (11.6-14.8); White Blood Cell Count 18.4 X10^3/uL (4.5-11.0)
[2020-05-13 22:25] LABS: Alanine Aminotransferase 21 IU/L (<50); Albumin 3.6 g/dL (3.5-5.0); Albumin Globulin Ratio 0.9 (1.0-2.8); Alkaline Phosphatase 385 U/L (38-126); Aspartate Aminotransferase 56 IU/L (17-59); BUN Creatinine Ratio 18.1 (6-22); Bilirubin Total 2.1 mg/dL (0.2-1.3); Blood Urea Nitrogen 43 mg/dL (9-20); Calcium 9.6 mg/dL (8.4-10.2); Carbon Dioxide 29 mmol/L (22-32); Chloride 95 mmol/L (98-107); Estimated Glomerular Filt Rate 28.6 mL/min (>60); Globulin 3.9 g/dL (1.7-4.1); Glucose 171 mg/dL (70-100); HEMOLYSIS < 15 (0-50); Lipase 18 U/L (23-300); Magnesium 1.5 mg/dL (1.6-2.3); Potassium 3.3 mmol/L (3.4-5.1); Sodium 132 mmol/L (137-145); Total Protein 7.5 g/dL (6.3-8.2)
--- NOTE | 2020-05-13 22:31 | ED_ITS ---
HPI - Nausea/Vomiting/Diarrhea General Chief complaint: Nausea/Vomiting/Diarrhea Stated complaint: N/V/D and abdominal pain Time Seen by Provider: 05/13/20 22:00 Source: patient and EMS Mode of arrival: EMS Limitations: no limitations History of Present Illness HPI Narrative: 54-year-old male daily smoker with history of liver disease and subsequent transplant on immune compromise medications presents with a few days of nausea, vomiting and diarrhea. He denies any headache, blurred vision or confusion. He has had no fever or shaking chills. Denies chest pain or shortness of breath. He denies any change in medications or dietary change. He is not dizzy nor weak or lightheaded. MD complaint: nausea, vomiting and diarrhea Onset (ago): day(s) Description of Vomiting: food contents Description of Diarrhea: watery Associated Abdominal Pain: No Location of pain: diffuse Radiation: diffuse Relieving factors: none Exacerbating factors: none Associated symptoms: denies other symptoms Related Data Home Medications Medication Instructions Recorded Confirmed B complex-vitamin C-folic acid 1 tab PO DAILY 01/14/20 01/14/20 [Kellie-Ramila] acetaminophen [Tylenol] 650 mg PO Q8HR PRN 01/14/20 01/14/20 allopurinol 100 mg PO DAILY 01/14/20 01/14/20 cyclobenzaprine 10 mg PO BEDTIME PRN 01/14/20 01/14/20 cyclosporine 25 mg PO BID 01/14/20 01/14/20 cyclosporine modified 25 mg PO BID 01/14/20 01/14/20 docusate sodium 250 mg PO BID PRN 01/14/20 01/14/20 duloxetine [Cymbalta] 20 mg PO DAILY 01/14/20 01/14/20 fentanyl See Rx Instructions .ROUTE .COMPLEX 01/14/20 01/14/20 furosemide 20 mg PO DAILY 01/14/20 01/14/20 gabapentin 300 mg PO BID 01/14/20 01/14/20 hydroxyzine pamoate [Vistaril] 25 mg PO BEDTIME PRN 01/14/20 01/14/20 lactulose 30 ml PO TID 01/14/20 01/14/20 lidocaine [Lidoderm] 1 patch TOPICAL DAILY 01/14/20 01/14/20 metoprolol succinate 75 mg PO DAILY 01/14/20 01/14/20 mycophenolate mofetil [CellCept] 500 mg PO BID 01/14/20 01/14/20 mycophenolate sodium [Myfortic] 360 mg PO BID 01/14/20 01/14/20 naloxone [Narcan] 1 spray INTRANASAL NOW PRN 01/14/20 01/14/20 ondansetron HCl [Zofran] 4 mg PO Q8H PRN 01/14/20 01/14/20 pantoprazole [Protonix] 20 mg PO DAILY 01/14/20 01/14/20 pyridoxine (vitamin B6) 50 mg PO DAILY 01/14/20 01/14/20 quetiapine [Seroquel] 25 mg PO BEDTIME 01/14/20 01/14/20 rifaximin 550 mg PO BID 01/14/20 01/14/20 ursodiol 300 mg PO BID 01/14/20 01/14/20 Previous Rx's Medication Instructions Recorded diphenoxylate-atropine [Lomotil] 1 tab PO DAILY PRN #10 tab 05/14/20 ondansetron 4 mg PO TID-QID PRN #10 tab 05/14/20 pantoprazole [Protonix] 40 mg PO DAILY #30 tab 05/14/20 Allergies Allergy/AdvReac Type Severity Reaction Status Date / Time venom-honey bee Allergy Severe Wheezing Unverified 05/14/20 01:38 [BEE VENOM (HONEY BEE)] codeine Allergy Unknown Unverified 05/14/20 01:38 NSAIDS (Non-Steroidal Allergy Verified 01/14/20 21:48 Anti-Inflamma adhesive tape AdvReac Verified 05/14/20 01:38 copper AdvReac Verified 01/14/20 21:48 dextromethorphan AdvReac Verified 01/14/20 21:48 morphine AdvReac Vomiting Verified 01/14/20 21:48 oxycodone AdvReac Vomiting Verified 01/14/20 21:48 pseudoephedrine AdvReac Verified 01/14/20 21:48 tizanidine AdvReac Verified 01/14/20 21:48 NYQUIL Allergy Unknown Uncoded 05/14/20 01:38 Review of Systems Constitutional Constitutional: Denies chills, Denies fatigue, Denies fever(s), Denies frequent falls, Denies lethargy and Denies weakness Eyes Eyes: Denies change in vision, Denies eye discharge, Denies irritation and Denies loss of vision ENT Ears, Nose, Mouth, and Throat: Denies change in voice, Denies dizziness, Denies neck pain, Denies sore throat and Denies throat swelling Cardiovascular Cardiovascular: Denies chest pain, Denies irregular heart rhythm, Denies lightheadedness, Denies palpitations, Denies dyspnea, Denies dyspnea on exertion and Denies orthopnea Respiratory Respiratory: Denies cough, Denies dyspnea, Denies dyspnea on exertion and Denies wheezing Gastrointestinal Gastrointestinal: Denies abdominal pain, Denies change in bowel habits, Reports diarrhea, Reports nausea and Reports vomiting Musculoskeletal Musculoskeletal: Denies neck pain and Denies numbness Integumentary/Breasts Skin/Breast: Denies pruritus, Denies erythema, Denies rash and Denies wounds Neurologic Neurologic: Denies behavioral changes, Denies confusion, Denies dizziness, Denies frequent falls, Denies loss of vision, Denies numbness and Denies weakness Psychiatric Psychiatric: Denies anxiety, Denies behavioral changes, Denies confusion, Denies depression, Denies homicidal ideation and Denies suicidal ideation Endocrine Endocrine: Denies fatigue, Denies flushing and Denies palpitations Hematologic/Lymphatic Hematologic/Lymphatic: Denies easy bruising Allergic/Immunologic Allergic/Immunologic: Denies urticaria, Denies throat swelling and Denies wheezing Patient History Medical History Hepatitis C (Acute) Liver cancer (Acute) Surgical History Liver transplant recipient (Acute) Social History Smoking Status: Current some day smoker Smoking Status: Current some day smoker alcohol intake frequency: a few times a week Alcohol type: hard liquor Substance Use Type: marijuana Exam Narrative Exam Narrative: GENERAL: [54] year old patient appears stated age. Well- nourished, well-developed patient, in mild distress. HEAD: Atraumatic. Normocephalic. EYES: Pupils equal round and reactive. Extraocular motions intact. No scleral icterus. No injection or drainage. ENT: Nose without bleeding, purulent drainage. Throat without erythema, tonsillar hypertrophy or exudate. Airway patent. NECK: Trachea midline. Non tender CARDIOVASCULAR: Regular rate and rhythm without murmurs, gallops, or rubs. RESPIRATORY: Clear to auscultation. Breath sounds equal bilaterally. No wheezes, rales, or rhonchi. GASTROINTESTINAL: Abdomen soft, non-tender, nondistended. EXTREMITIES: No edema or joint tenderness. BACK: Nontender without deformity or crepitance. No flank tenderness. NEURO: AOx3. SKIN: No rash or erythema of visible areas Initial Vital Signs Initial Vital Signs: Vital Signs Temperature 98.2 F 05/13/20 21:55 Pulse Rate 82 05/13/20 21:55 Respiratory Rate 20 05/13/20 21:55 Blood Pressure 167/87 H 05/13/20 21:55 Pulse Oximetry 97 05/13/20 21:55 Course Orders Ordered: ED Orders 05/13/20 22:00 Complete Blood Count AUTO DIFF Stat Comprehensive Metabolic Panel Stat Lipase Stat Magnesium Stat 05/13/20 22:25 Lactate (Lactic Acid) Stat 05/13/20 22:33 CT abdomen pelvis wo con Stat 05/14/20 02:40 White Blood Cell Count Stat Discontinued Medications Sodium Chloride (Normal Saline 0.9%) 1,000 mls @ 1,000 mls/hr IV BOLUS ONE Stop: 05/13/20 23:11 Last Admin: 05/13/20 23:34 Dose: Not Given Documented by: PRAMOD Sodium Chloride (Normal Saline 0.9%) 1,000 mls @ 1,000 mls/hr IV BOLUS ONE Stop: 05/14/20 03:10 Last Infusion: 05/14/20 04:29 Dose: 0 mls/hr Documented by: Admin: 05/14/20 03:16 Dose: 1,000 mls/hr Documented by: JAMES Pantoprazole Sodium (Protonix) 40 mg IV NOW ONE Stop: 05/13/20 23:35 Last Admin: 05/14/20 00:00 Dose: 40 mg Documented by: SHORTY Reevaluation(s) Reevaluation #1: patient feeling much much better, tolerating oral hydration. No vomiting in quite some time. No loose stools. No fever or chills. Requesting some juice. Time: 02:17 Reevaluation #2: pain and nausea have returned. Repeat WBC remains elevated at 17,000. Requesting DC Vital Signs Vital signs: Vital Signs - 8 hr 05/13/20 22:30 05/13/20 22:31 05/13/20 23:00 Pulse Rate 93 H 69 70 Blood Pressure 149/78 H Pulse Oximetry 98 97 88 L 05/13/20 23:01 05/13/20 23:30 05/13/20 23:31 Pulse Rate 75 80 79 Blood Pressure 147/78 H 176/84 H Pulse Oximetry 89 L 99 97 05/14/20 00:00 05/14/20 00:01 05/14/20 00:30 Pulse Rate 69 69 73 Blood Pressure 158/77 H Pulse Oximetry 93 91 05/14/20 00:31 05/14/20 01:00 05/14/20 01:30 Pulse Rate 73 69 65 Blood Pressure 124/70 126/84 Pulse Oximetry 91 93 99 05/14/20 01:31 05/14/20 02:00 05/14/20 02:01 Pulse Rate 65 78 69 Blood Pressure 152/87 H 126/75 Pulse Oximetry 96 94 94 05/14/20 02:30 05/14/20 03:00 05/14/20 03:01 Pulse Rate 71 73 71 Blood Pressure 129/75 117/64 Pulse Oximetry 92 91 91 05/14/20 03:30 05/14/20 04:00 Pulse Rate 72 68 Blood Pressure 126/72 137/79 Pulse Oximetry 92 MDM - Nausea/Vomiting/Diarrhea Lab Data Result diagrams: 05/14/20 02:40 05/13/20 22:00 Labs: Lab Results 05/13/20 05/13/20 05/13/20 Range/Units 22:00 22:00 22:25 WBC 18.4 H (4.5-11.0) X10^3/uL RBC 4.13 L (4.5-5.9) X10^6/uL Hgb 13.5 (13.5-17.5) g/dL Hct 40.0 L (41-53) % MCV 96.8 (80-100) fL MCH 32.7 (26-34) PG MCHC 33.8 (30-36) % RDW 16.9 H (11.6-14.8) % Plt Count 168 (150-400) X10^3/uL Neut % (Auto) 62.7 (50-75) % Lymph % (Auto) 31.6 (25-40) % [place] % (Auto) 3.9 (3-14) % Eos % (Auto) 0.0 L (2-4) % Baso % (Auto) 1.8 (0-2) % Neut # (Auto) 92677 H (2876-9771) /uL Lymph # (Auto) 5800 H (1831-6172) /uL [place] # (Auto) 700 (0-900) /uL Eos # (Auto) 0 (0-450) /uL Baso # (Auto) 300 H (0-100) /uL Sodium 132 L (137-145) mmol/L Potassium 3.3 L (3.4-5.1) mmol/L Chloride 95 L (98-107) mmol/L Carbon Dioxide 29 (22-32) mmol/L BUN 43 H (9-20) mg/dL Creatinine 2.37 H (0.66-1.25) mg/dL Estimated GFR 28.6 L (>60) mL/min BUN/Creatinine Ratio 18.1 (6-22) Glucose 171 H (70-100) mg/dL Lactate 1.5 (0.7-2.1) mmol/L Calcium 9.6 (8.4-10.2) mg/dL Magnesium 1.5 L (1.6-2.3) mg/dL Total Bilirubin 2.1 H (0.2-1.3) mg/dL AST 56 (17-59) IU/L ALT 21 (<50) IU/L Alkaline Phosphatase 385 H (38-126) U/L Total Protein 7.5 (6.3-8.2) g/dL Albumin 3.6 (3.5-5.0) g/dL Globulin 3.9 (1.7-4.1) g/dL Albumin/Globulin Ratio 0.9 L (1.0-2.8) Lipase 18 L (23-300) U/L 05/14/20 Range/Units 02:40 WBC 17.1 H (4.5-11.0) X10^3/uL RBC (4.5-5.9) X10^6/uL Hgb (13.5-17.5) g/dL Hct (41-53) % MCV (80-100) fL MCH (26-34) PG MCHC (30-36) % RDW (11.6-14.8) % Plt Count (150-400) X10^3/uL Neut % (Auto) (50-75) % Lymph % (Auto) (25-40) % [place] % (Auto) (3-14) % Eos % (Auto) (2-4) % Baso % (Auto) (0-2) % Neut # (Auto) (2679-9197) /uL Lymph # (Auto) (6825-2037) /uL [place] # (Auto) (0-900) /uL Eos # (Auto) (0-450) /uL Baso # (Auto) (0-100) /uL Sodium (137-145) mmol/L Potassium (3.4-5.1) mmol/L Chloride (98-107) mmol/L Carbon Dioxide (22-32) mmol/L BUN (9-20) mg/dL Creatinine (0.66-1.25) mg/dL Estimated GFR (>60) mL/min BUN/Creatinine Ratio (6-22) Glucose (70-100) mg/dL Lactate (0.7-2.1) mmol/L Calcium (8.4-10.2) mg/dL Magnesium (1.6-2.3) mg/dL Total Bilirubin (0.2-1.3) mg/dL AST (17-59) IU/L ALT (<50) IU/L Alkaline Phosphatase (38-126) U/L Total Protein (6.3-8.2) g/dL Albumin (3.5-5.0) g/dL Globulin (1.7-4.1) g/dL Albumin/Globulin Ratio (1.0-2.8) Lipase (23-300) U/L MDM Narrative Medical decision making narrative: Patient with N/V/D, no evidence of surgical problem. Tolerating clear liquids. Return precautions given. Questions answered to his apparent satisfaction. Discharge Plan Departure Patient Disposition: Home Clinical Impression: Nausea and vomiting Qualifiers: Vomiting type: unspecified Vomiting Intractability: non-intractable Qualified Code(s): R11.2 - Nausea with vomiting, unspecified Diarrhea Qualifiers: Diarrhea type: unspecified type Qualified Code(s): R19.7 - Diarrhea, unspecified Discharge Date/Time: 05/14/20 04:29 Instructions: Diarrhea, Nausea and Vomiting-Adult Activity Restrictions/Additional Instructions: 1. Drink plenty of fluids with frequent small sips. 2. For the next 24 hours a clear liquid diet is advised. After that please employ a B.R.A.T. diet which would include bananas, rice, apples, toast and other mild food items 3. Please take medications as directed. 4. Please follow-up with your doctor in the next 1-2 days. Call the office for an appointment. 5. Please return to the emergency Department for any worsening or persistent symptoms, such as increasing pain or fever. Prescriptions: New ondansetron 4 mg tablet,disintegrating 4 mg PO TID-QID PRN (Reason: nausea and vomiting) Qty: 10 RF: 0 diphenoxylate-atropine [Lomotil] 2.5-0.025 mg tablet 1 tab PO DAILY PRN (Reason: diarrhea) Qty: 10 RF: 0 pantoprazole [Protonix] 40 mg tablet,delayed release (DR/EC) 40 mg PO DAILY Qty: 30 RF: 0 No Action quetiapine [Seroquel] 25 mg Tablet 25 mg PO BEDTIME RF: 0 cyclobenzaprine 10 mg Tablet 10 mg PO BEDTIME PRN (Reason: Spasms) RF: 0 cyclosporine modified 25 mg Capsule 25 mg PO BID RF: 0 ondansetron HCl [Zofran] 4 mg Tablet 4 mg PO Q8H PRN (Reason: Nausea) RF: 0 allopurinol 100 mg Tablet 100 mg PO DAILY RF: 0 cyclosporine 25 mg Capsule 25 mg PO BID RF: 0 pantoprazole [Protonix] 20 mg Tablet,Delayed Release (Dr/Ec) 20 mg PO DAILY RF: 0 mycophenolate mofetil [CellCept] 500 mg Tablet 500 mg PO BID RF: 0 lidocaine [Lidoderm] 5 % Adhesive Patch,Medicated 1 patch TOPICAL DAILY RF: 0 ursodiol 300 mg Capsule 300 mg PO BID RF: 0 gabapentin 300 mg Capsule 300 mg PO BID RF: 0 Kellie-Ramila 0.8 mg Tablet 1 tab PO DAILY RF: 0 furosemide 20 mg Tablet 20 mg PO DAILY RF: 0 pyridoxine (vitamin B6) 100 mg Tablet 50 mg PO DAILY RF: 0 fentanyl 25 mcg/hr Patch 72 Hour See Rx Instructions .ROUTE .COMPLEX RF: 0 docusate sodium 250 mg Capsule 250 mg PO BID PRN (Reason: Constipation) RF: 0 hydroxyzine pamoate [Vistaril] 25 mg Capsule 25 mg PO BEDTIME PRN (Reason: Itching) RF: 0 mycophenolate sodium [Myfortic] 360 mg Tablet,Delayed Release (Dr/Ec) 360 mg PO BID RF: 0 duloxetine [Cymbalta] 20 mg Capsule,Delayed Release(Dr/Ec) 20 mg PO DAILY RF: 0 lactulose 10 gram/15 mL Solution 30 ml PO TID RF: 0 acetaminophen [Tylenol] 325 mg Capsule 650 mg PO Q8HR PRN (Reason: Pain, Moderate) RF: 0 rifaximin 550 mg Tablet 550 mg PO BID RF: 0 Narcan 4 mg/actuation [place],Non-Aerosol 1 spray INTRANASAL NOW PRN (Reason: (Drug) Ingestion) RF: 0 metoprolol succinate 25 mg Capsule,Sprinkle,Er 24hr 75 mg PO DAILY RF: 0 Referrals: Natacha Rowley MD [Primary Care Provider] -
--- NOTE | 2020-05-13 22:33 | DI.CT.S_ITS ---
PROCEDURE: CT ABDOMEN PELVIS WO CON INDICATIONS: nausea and vomiting, liver transplant, kidney failure, weakn TECHNIQUE: Noncontrast 5 mm thick sections acquired from the diaphragms to the symphysis. 5 mm coronal and sagittal reformats were then performed. For radiation dose reduction, the following was used: automated exposure control, adjustment of mA and/or kV according to patient size. COMPARISON: [facility], CT, CT ABDOMEN PELVIS WITH CONTRAST, 10/10/2017, 10:12. [facility], CT, CT THORACIC SPINE WITHOUT CONTRAST, 03/24/2018, 3:34. [facility], CT, CT ABDOMEN PELVIS WITHOUT CONTRAST, 11/14/2019, 3:39. FINDINGS: Image quality: Excellent. ABDOMEN: Lung bases: Lung bases are clear. Heart size is normal. There is a ggoet-as-hftnuvga-sized hiatal hernia. Solid organs: Liver is normal in size. Gallbladder is surgically absent. Pancreas is normal in contours. Spleen is normal in size. No adrenal nodules. Bilateral mild renal cortical atrophy. No renal stones or hydronephrosis. Peritoneum and bowel: Unenhanced bowel loops demonstrate normal wall thickness and caliber. No free fluid or air. Nodes and vessels: No retroperitoneal or mesenteric adenopathy by size criteria. Aorta and inferior vena cava are normal in caliber. Miscellaneous: No ventral hernias. PELVIS: Genitourinary: Bladder wall thickness is normal. Miscellaneous: No inguinal hernias or adenopathy. Bones: Old left 10th rib fracture. No suspicious bony lesions. Multiple old vertebral body compression fracture, severe at L1, L3 and L5, moderate at T10, T11, T12, L4, and mild at L2, unchanged from the last exam. IMPRESSION: 1. No acute intra-abdominal or pelvic process. 2. Small to moderate-sized hiatal hernia. 3. Mild bilateral renal cortical thinning. No renal stone or hydronephrosis. 4. Multiple old compression fractures. No significant discrepancy with the product design manager radiology preliminary report. Dictated by: Sandi Rios M.D. on 05/14/2020 at 7:51 Approved by: Sandi Rios M.D. on 05/14/2020 at 7:57
[2020-05-13 22:42] LABS: Lactate (Lactic Acid) 1.5 mmol/L (0.7-2.1)
[2020-05-13] MEDS: ONDANSETRON 4 MG/2 ML INJ (23:33)
[2020-05-14] VITALS (14 sets, daily range): BP systolic 117–158; BP diastolic 64–87; PULSE 65–78; O2SAT 91–99
[2020-05-14] MEDS: PANTOPRAZOLE 40 MG VIAL IV
[2020-05-14 02:46] LABS: White Blood Cell Count 17.1 X10^3/uL (4.5-11.0)
[2020-05-14] MEDS: SODIUM CHLORIDE 0.9% 1,000 ML 1000 ML IV (03:16)
== END 2020-05-14 04:29 | disposition home or self-care (01) ==
PROVIDERS: Emergency Provider Emergency Medicine; Family Provider Internal Medicine; PCP Internal Medicine
DX: R11.2 Nausea with vomiting, unspecified (principal); R19.7 Diarrhea, unspecified; Z94.4 Liver transplant status
CPT/HCPCS: 36415; 74176; 80053; 83605; 83690; 83735; 85025; 85048; 96361; 96374; 96375; 99284; C9113; J2405

== ENCOUNTER 2020-06-26 02:30 | Observation (INO) | payer OTHER, MEDICAID, SELFPAY ==
[2020-06-26] VITALS (18 sets, daily range): BP systolic 86–139; BP diastolic 56–82; PULSE 68–99; RESP 16–18; TEMP 36.1–37.1; O2SAT 94–99; BMI 28.7; BMI 28.9
--- NOTE | 2020-06-26 02:46 | DI.CT.S_ITS ---
PROCEDURE: CT HEAD/BRAIN WO CON INDICATIONS: trauma, syncope TECHNIQUE: Noncontrast 4.5 mm thick angled axial sections acquired from the foramen magnum to the vertex, with coronal and sagittal reformats. For radiation dose reduction, the following was used: automated exposure control, adjustment of mA and/or kV according to patient size. COMPARISON: [facility], CT, CT HEAD/BRAIN WO CON, 01/14/2020, 17:31. FINDINGS: Image quality: Excellent. CSF spaces: Basal cisterns are patent. No extra-axial fluid collections. Ventricles are normal in size and shape. Brain: No midline shift. No intracranial masses or hemorrhage. Sibley-white matter interface is normal. Skull and face: Calvarium and visualized facial bones are intact, without suspicious lesions. Sinuses: Visualized sinuses and mastoids are clear. IMPRESSION: No acute process. Concordant with preliminary interpretation. Dictated by: Dwayne Rose M.D. on 06/26/2020 at 10:15 Approved by: Dwayne Rose M.D. on 06/26/2020 at 10:16
--- NOTE | 2020-06-26 02:46 | DI.CT.S_ITS ---
PROCEDURE: CT CERVICAL SPINE WO CON INDICATIONS: trauma, midline pain TECHNIQUE: Noncontrast 3 mm thick sections acquired from the skull base to the T4 level. Sagittal and coronal reformats were then constructed. For radiation dose reduction, the following was used: automated exposure control, adjustment of mA and/or kV according to patient size. COMPARISON: None. FINDINGS: Image quality: Excellent. Bones: No fractures or dislocations. Visualized superior ribs are intact. Anterior fusion of C5-C6 has been performed. Grade 1 retrolisthesis of C4 on C5. Soft tissues: Prevertebral soft tissues are normal in thickness. No paravertebral hematomas. No apical pneumothoraces. IMPRESSION: No fracture. Dictated by: Dwayne Rose M.D. on 06/26/2020 at 10:16 Approved by: Dwayne Rose M.D. on 06/26/2020 at 10:18
[2020-06-26] MEDS: SODIUM CHLORIDE 0.9% 1,000 ML 1000 ML IV (02:54)
--- NOTE | 2020-06-26 02:55 | ED_ITS ---
HPI - Fall General Chief Complaint: Fall Stated Complaint: Syncope Time Seen by Provider: 06/26/20 02:34 Source: patient and EMS Mode of arrival: EMS History of Present Illness HPI Narrative: 54-year-old gentleman with a history of liver transplant currently on anti-rejection medications, multiple orthopedic complaints prior surgeries presents with 4 days dizziness and near-syncope after 2 days of of nausea vomiting diarrhea. Vomiting and diarrhea have essentially resolved over the last 2 days however he has continued to have increasing dizziness. Today he was in his kitchen became acutely dizzy fell forward hitting his brow on the edge of a counter and then landing on his knees. He is complaining of cervical spine pain and left shoulder pain. He has a minor abrasion on the right elbow. He states he did not lose consciousness and reports no use of anticoagulants. He states he has not had fevers, chills, chest pain, cough, palpitations, lower extremity edema, increasing abdominal pain or dysuria. Does have a history of elevated ammonia levels and has not been using his lactulose due to the diarrhea and vomiting. Related Data Home Medications Medication Instructions Recorded Confirmed B complex-vitamin C-folic acid 1 tab PO DAILY 01/14/20 01/14/20 [Kellie-Ramila] acetaminophen [Tylenol] 650 mg PO Q8HR PRN 01/14/20 01/14/20 allopurinol 100 mg PO DAILY 01/14/20 01/14/20 cyclobenzaprine 10 mg PO BEDTIME PRN 01/14/20 01/14/20 cyclosporine 25 mg PO BID 01/14/20 01/14/20 cyclosporine modified 25 mg PO BID 01/14/20 01/14/20 docusate sodium 250 mg PO BID PRN 01/14/20 01/14/20 duloxetine [Cymbalta] 20 mg PO DAILY 01/14/20 01/14/20 fentanyl See Rx Instructions .ROUTE .COMPLEX 01/14/20 01/14/20 furosemide 20 mg PO DAILY 01/14/20 01/14/20 gabapentin 300 mg PO BID 01/14/20 01/14/20 hydroxyzine pamoate [Vistaril] 25 mg PO BEDTIME PRN 01/14/20 01/14/20 lactulose 30 ml PO TID 01/14/20 01/14/20 lidocaine [Lidoderm] 1 patch TOPICAL DAILY 01/14/20 01/14/20 metoprolol succinate 75 mg PO DAILY 01/14/20 01/14/20 mycophenolate mofetil [CellCept] 500 mg PO BID 01/14/20 01/14/20 mycophenolate sodium [Myfortic] 360 mg PO BID 01/14/20 01/14/20 naloxone [Narcan] 1 spray INTRANASAL NOW PRN 01/14/20 01/14/20 ondansetron HCl [Zofran] 4 mg PO Q8H PRN 01/14/20 01/14/20 pantoprazole [Protonix] 20 mg PO DAILY 01/14/20 01/14/20 pyridoxine (vitamin B6) 50 mg PO DAILY 01/14/20 01/14/20 quetiapine [Seroquel] 25 mg PO BEDTIME 01/14/20 01/14/20 rifaximin 550 mg PO BID 01/14/20 01/14/20 ursodiol 300 mg PO BID 01/14/20 01/14/20 Previous Rx's Medication Instructions Recorded diphenoxylate-atropine [Lomotil] 1 tab PO DAILY PRN #10 tab 05/14/20 ondansetron 4 mg PO TID-QID PRN #10 tab 05/14/20 pantoprazole [Protonix] 40 mg PO DAILY #30 tab 05/14/20 Allergies Allergy/AdvReac Type Severity Reaction Status Date / Time venom-honey bee Allergy Severe Wheezing Unverified 05/14/20 01:38 [BEE VENOM (HONEY BEE)] codeine Allergy Unknown Unverified 05/14/20 01:38 NSAIDS (Non-Steroidal Allergy Verified 01/14/20 21:48 Anti-Inflamma adhesive tape AdvReac Verified 05/14/20 01:38 copper AdvReac Verified 01/14/20 21:48 dextromethorphan AdvReac Verified 01/14/20 21:48 morphine AdvReac Vomiting Verified 01/14/20 21:48 oxycodone AdvReac Vomiting Verified 01/14/20 21:48 pseudoephedrine AdvReac Verified 01/14/20 21:48 tizanidine AdvReac Verified 01/14/20 21:48 NYQUIL Allergy Unknown Uncoded 05/14/20 01:38 Review of Systems Review of Systems Narrative: Remainder of review of systems including constitutional, ENT, cardiovascular, respiratory, GI, , musculoskeletal, skin, neurologic and psychiatric systems reviewed and are unremarkable except as noted in HPI. Patient History Medical History Hepatitis C (Acute) Liver cancer (Acute) Surgical History Liver transplant recipient (Acute) Social History Smoking Status: Current some day smoker Smoking Status: Current some day smoker alcohol intake frequency: a few times a week Alcohol type: hard liquor Substance Use Type: marijuana Exam Narrative Exam Narrative: General: Slightly jaundiced, chronically ill-appearing gentl eman with C-collar in place HEENT: Moist mucous membranes, normal sclera with reactive pupils, on abrasion through the right brow that will not need any suturing and minor contusion to the lateral aspect of the right eye. Neck: Tender midline C2-C3 C4. C-collar left in place Respiratory: Lungs are clear to auscultation, no wheezing no rales no rhonchi. Full and symmetrical air movement Chest: Tenderness in the anterior left axillary area without hematoma or contusion Cardiac: Regular rate and rhythm no murmurs no bruits Abdomen: Multiple abdominal scars and palpable abnormalities presumably his liver transplant. He does have good bowel tones and, no flank pain Skin: Mildly jaundiced and dry, no rashes Neurologic: Grossly neurologically intact, moving all extremities Extremities: Minor abrasion to the left elbow, minor contusion to left anterior gaffney well perfused, tenderness to the left deltoid/rotator cuff area without tenderness to clavicular palpation or humeral palpation. Psych: Cooperative, somewhat slowed speech process but fluent without any word- finding difficulties or dysarthria Initial Vital Signs Initial Vital Signs: Vital Signs Temperature 98.7 F 06/26/20 02:41 Pulse Rate 73 06/26/20 02:41 Respiratory Rate 18 06/26/20 02:41 Blood Pressure 106/74 06/26/20 02:41 Pulse Oximetry 98 06/26/20 02:41 Course Orders Ordered: ED Orders 06/26/20 02:30 Complete Blood Count AUTO DIFF Stat Comprehensive Metabolic Panel Stat Lipase Stat Magnesium Stat 06/26/20 02:45 Urinalysis and Microscopic Stat 06/26/20 02:46 CT cervical spine wo con Stat CT head/brain wo con Stat 06/26/20 02:54 Ammonia (NH3) Stat Lactate (Lactic Acid) Stat 06/26/20 03:00 COVID19 Stat 06/26/20 04:27 XR shoulder LT min 2V Stat Bisacodyl (Dulcolax) 10 mg MO DAILY PRN PRN Reason: Constipation Hydromorphone HCl (Dilaudid) 0.5 mg IV Q15MIN PRN PRN Reason: Pain, Last Admin: 06/26/20 02:57 Dose: 0.5 mg Documented by: COLUMBA Hydromorphone HCl (Dilaudid) 2 mg PO Q3H PRN PRN Reason: Pain, Severe (7-10) Sodium Chloride (Normal Saline 0.9%) 1,000 mls @ 150 mls/hr IV CONT JUNIOR Last Admin: 06/26/20 04:30 Dose: 150 mls/hr Documented by: JAMES Potassium Chloride 40 meq/ (Sodium Chloride) 520 mls @ 130 mls/hr IV NOW ONE Stop: 06/26/20 08:21 Last Admin: 06/26/20 04:45 Dose: 130 mls/hr Documented by: JAMES Cosigned by: COLUMBA Sodium Chloride (Normal Saline 0.9%) 1,000 mls @ 100 mls/hr IV CONT JUNIOR Naloxone HCl (Narcan) 0.2 mg IV Q2MIN PRN PRN Reason: Opiate Reversal Ondansetron HCl (Zofran Odt) 4 mg PO Q8HR PRN PRN Reason: Nausea And Vomiting Sennosides (Senna) 17.2 mg PO BEDTIME JUNIOR Discontinued Medications Hydromorphone HCl (Dilaudid) 4 mg PO NOW ONE Stop: 06/26/20 04:27 Last Admin: 06/26/20 04:30 Dose: 4 mg Documented by: JAMES Sodium Chloride (Normal Saline 0.9%) 1,000 mls @ 1,000 mls/hr IV BOLUS ONE Stop: 06/26/20 03:43 Last Infusion: 06/26/20 04:00 Dose: 0 mls/hr Documented by: Admin: 06/26/20 02:54 Dose: 1,000 mls/hr Documented by: COLUMBA Vital Signs Vital signs: Vital Signs - 8 hr 06/26/20 02:41 06/26/20 03:19 06/26/20 03:30 Temperature 98.7 F Pulse Rate 73 72 70 Respiratory Rate 18 Blood Pressure 106/74 106/74 Pulse Oximetry 98 96 95 06/26/20 04:00 Temperature Pulse Rate 79 Respiratory Rate Blood Pressure 95/66 Pulse Oximetry 94 MDM - Fall Medical Records Attestation: I reviewed the patient's medical records. Lab Data Attestation: I reviewed the patient's lab results. Result diagrams: 06/26/20 02:30 06/26/20 02:30 Labs: Lab Results 06/26/20 06/26/20 06/26/20 Range/Units 02:30 02:30 02:54 WBC 13.1 H (4.5-11.0) X10^3/uL RBC 4.17 L (4.5-5.9) X10^6/uL Hgb 13.4 L (13.5-17.5) g/dL Hct 41.2 (41-53) % MCV 98.7 (80-100) fL MCH 32.2 (26-34) PG MCHC 32.6 (30-36) % RDW 19.1 H (11.6-14.8) % Plt Count 123 L (150-400) X10^3/uL Neut % (Auto) 45.2 L (50-75) % Lymph % (Auto) 46.0 H (25-40) % [place] % (Auto) 8.2 (3-14) % Eos % (Auto) 0.4 L (2-4) % Baso % (Auto) 0.2 (0-2) % Neut # (Auto) 5900 (9077-1902) /uL Lymph # (Auto) 6000 H (1685-8041) /uL [place] # (Auto) 1100 H (0-900) /uL Eos # (Auto) 100 (0-450) /uL Baso # (Auto) 0 (0-100) /uL Sodium 130 L (137-145) mmol/L Potassium 2.9 L (3.4-5.1) mmol/L Chloride 93 L (98-107) mmol/L Carbon Dioxide 33 H (22-32) mmol/L BUN 52 H (9-20) mg/dL Creatinine 2.98 H (0.66-1.25) mg/dL Estimated GFR 21.9 L (>60) mL/min BUN/Creatinine Ratio 17.4 (6-22) Glucose 107 H (70-100) mg/dL Lactate (0.7-2.1) mmol/L Calcium 7.9 L (8.4-10.2) mg/dL Magnesium 1.3 L (1.6-2.3) mg/dL Total Bilirubin 1.4 H (0.2-1.3) mg/dL AST 155 H (17-59) IU/L ALT 67 H (<50) IU/L Alkaline Phosphatase 282 H (38-126) U/L Ammonia < 9 L (9-30) umol/L Total Protein 6.4 (6.3-8.2) g/dL Albumin 3.0 L (3.5-5.0) g/dL Globulin 3.4 (1.7-4.1) g/dL Albumin/Globulin Ratio 0.9 L (1.0-2.8) Lipase 139 (23-300) U/L COVID-19 PCR (Negative) 06/26/20 06/26/20 Range/Units 02:54 03:00 WBC (4.5-11.0) X10^3/uL RBC (4.5-5.9) X10^6/uL Hgb (13.5-17.5) g/dL Hct (41-53) % MCV (80-100) fL MCH (26-34) PG MCHC (30-36) % RDW (11.6-14.8) % Plt Count (150-400) X10^3/uL Neut % (Auto) (50-75) % Lymph % (Auto) (25-40) % [place] % (Auto) (3-14) % Eos % (Auto) (2-4) % Baso % (Auto) (0-2) % Neut # (Auto) (8721-4305) /uL Lymph # (Auto) (4174-4815) /uL Raw[place]ins # (Auto) (0-900) /uL Eos # (Auto) (0-450) /uL Baso # (Auto) (0-100) /uL Sodium (137-145) mmol/L Potassium (3.4-5.1) mmol/L Chloride (98-107) mmol/L Carbon Dioxide (22-32) mmol/L BUN (9-20) mg/dL Creatinine (0.66-1.25) mg/dL Estimated GFR (>60) mL/min BUN/Creatinine Ratio (6-22) Glucose (70-100) mg/dL Lactate 1.0 (0.7-2.1) mmol/L Calcium (8.4-10.2) mg/dL Magnesium (1.6-2.3) mg/dL Total Bilirubin (0.2-1.3) mg/dL AST (17-59) IU/L ALT (<50) IU/L Alkaline Phosphatase (38-126) U/L Ammonia (9-30) umol/L Total Protein (6.3-8.2) g/dL Albumin (3.5-5.0) g/dL Globulin (1.7-4.1) g/dL Albumin/Globulin Ratio (1.0-2.8) Lipase (23-300) U/L COVID-19 PCR Negative (Negative) Imaging Data CT scan - head: Radiologist's Impression: No intracranial hemorrhage or mass effect Dr Nico Ku CT - cervical spine: Radiologist's Impression: No acute fracture Dr Nico Ku Shoulder x-ray: Radiologist's Impression: Displaced anterior left 5th and 6th rib fractures without pneumothorax Operative changes of the glenohumeral joint, no acute abnormalities of the shoulder Dr Prashanth Benz [facility] Narrative Medical decision making narrative: Four days of dizziness and ataxia with severe nausea and vomiting for 2 days. Significantly dehydrated with mild acute kidney injury with a baseline creatinine in the 2.4 range increased to 2.98. Hypokalemia at 2.9 , mild hyponatremia and hypo magnesemia. No evidence of hep atic encephalopathy with ammonia levels normal. Slightly increased AST ALT and alk-phos is actually decreased from his baseline. Bilirubin is 1.4, down from his slightly elevated baseline. COVID negative. Tenderness at the left shoulder. No shoulder or acromioclavicular injuries on x-ray however he does have anterior left 5th and 6th rib fractures that explain the shoulder pain. There is no associated pneumo or hemothorax. CTs of the head and cervical spine are unremarkable. Findings are reviewed with patient. He requests additional pain medication and notes that oral have hydromorphone has worked well for him in the past. He does also have a 25 mcg fentanyl patch in place for chronic pain management. His care and findings were reviewed with the hospitalist service and he will be admitted for dehydration with mild acute kidney injury and potassium replacement. Discharge Plan Departure Patient Disposition: Admitted as Observation Clinical Impression: Acute dehydration, Nausea vomiting and diarrhea, Acute hypokalemia, Acute pain of left shoulder, Near syncope Acute strain of neck muscle Qualifiers: Encounter type: initial encounter Qualified Code(s): S16.1XXA - Strain of muscle, fascia and tendon at neck level, initial encounter Fall Qualifiers: Encounter type: initial encounter Qualified Code(s): W19.XXXA - Unspecified fall, initial encounter Fracture, ribs Qualifiers: Encounter type: initial encounter Rib fracture type: multiple ribs Fracture type: closed Laterality: left Qualified Code(s): S22.42XA - Multiple fractures of ribs, left side, initial encounter for closed fracture Referrals: Natacha Rowley MD [Primary Care Provider] - Admit Date/Time: 06/26/20 04:28 Admit Provider: Sowmya Henriquez
[2020-06-26] MEDS: HYDROMORPHONE 0.5 MG INJ IV (02:57)
[2020-06-26 03:00] LABS: Add Manual Diff / Slide Review NO; Basophils Absolute Auto 0 /uL (0-100); Basophils Percent Auto 0.2 % (0-2); Eosinophils Absolute Auto 100 /uL (0-450); Eosinophils Percent Auto 0.4 % (2-4); Hematocrit 41.2 % (41-53); Hemoglobin 13.4 g/dL (13.5-17.5); Lymphocytes Absolute Auto 6000 /uL (1100-4500); Mean Corpuscular HGB Conc 32.6 % (30-36); Mean Corpuscular Hemoglobin 32.2 PG (26-34); Mean Corpuscular Volume 98.7 fL (80-100); Monocytes Absolute Auto 1100 /uL (0-900); Monocytes Percent Auto 8.2 % (3-14); Neutrophils Absolute Auto 5900 /uL (1500-7000); Neutrophils Percent Auto 45.2 % (50-75); Platelet Count 123 X10^3/uL (150-400); Red Blood Cell Count 4.17 X10^6/uL (4.5-5.9); Red Cell Distribution Width 19.1 % (11.6-14.8); White Blood Cell Count 13.1 X10^3/uL (4.5-11.0)
[2020-06-26 03:06] LABS: Alanine Aminotransferase 67 IU/L (<50); Albumin Globulin Ratio 0.9 (1.0-2.8); Alkaline Phosphatase 282 U/L (38-126); Aspartate Aminotransferase 155 IU/L (17-59); BUN Creatinine Ratio 17.4 (6-22); Bilirubin Total 1.4 mg/dL (0.2-1.3); Blood Urea Nitrogen 52 mg/dL (9-20); Calcium 7.9 mg/dL (8.4-10.2); Carbon Dioxide 33 mmol/L (22-32); Chloride 93 mmol/L (98-107); Estimated Glomerular Filt Rate 21.9 mL/min (>60); Globulin 3.4 g/dL (1.7-4.1); Glucose 107 mg/dL (70-100); HEMOLYSIS < 15 (0-50); Lipase 139 U/L (23-300); Magnesium 1.3 mg/dL (1.6-2.3); Potassium 2.9 mmol/L (3.4-5.1); Sodium 130 mmol/L (137-145); Total Protein 6.4 g/dL (6.3-8.2)
[2020-06-26 03:23] LABS: Ammonia (NH3) < 9 umol/L (9-30)
[2020-06-26 03:27] LABS: COVID19 -Nasal RAPID Negative (Negative)
--- NOTE | 2020-06-26 04:27 | DI.RAD.S_ITS ---
PROCEDURE: XR SHOULDER LT MIN 2V INDICATIONS: fell, trauma TECHNIQUE: 3 views of the shoulder were acquired. COMPARISON: None. FINDINGS: Bones: Mildly displaced left anterior 5th and 6th rib fractures. Left shoulder arthroplasty. No suspicious bony lesions. Visualized ribs appear intact. Soft tissues: No suspicious soft tissue calcifications. IMPRESSION: 1. Left rib fractures. 2. No evidence of shoulder fracture. 3. Shoulder arthroplasty. 4. Concordant with preliminary interpretation. Dictated by: Dwayne Rose M.D. on 06/26/2020 at 9:49 Approved by: Dwayne Rose M.D. on 06/26/2020 at 9:51
[2020-06-26] MEDS: HYDROMORPHONE 4 MG TABLET PO (04:30)
[2020-06-26] MEDS: SODIUM CHLORIDE 0.9% 1,000 ML 150 ML IV (04:30)
[2020-06-26] MEDS: POTASSIUM CHLORIDE 40 MEQ in SODIUM CHLORIDE 0.9% 500 ML 130 ML IV (04:45)
[2020-06-26] MEDS: SODIUM CHLORIDE 0.9% 1,000 ML 100 ML IV (05:40)
[2020-06-26 07:04] LABS: Bacteria Urine None Seen; RBC Urine None Seen (0-5/HPF); WBC Urine None Seen (0-5/HPF)
[2020-06-26 07:21] LABS: Appearance Urine UA Clear; Color Urine UA YELLOW
[2020-06-26 07:22] LABS: Bilirubin Urine UA Negative (NEGATIVE); Culture Indicated Urine Cult Not Indicated; Glucose Urine UA NEGATIVE (Negative); Ketones Urine UA NEGATIVE (NEGATIVE); Leukocyte Esterase Urine UA NEGATIVE (NEGATIVE); Nitrite Urine UA NEGATIVE (Negative); Occult Blood Urine UA Negative (Negative); Protein Urine UA Negative (Negative); Specific Gravity Urine UA <=1.005 (1.000-1.035); Urine Comments Microscopic Normal; Urobilinogen Urine UA 0.2 E.U./dL (0.2)
--- NOTE | 2020-06-26 08:33 | PM.HP.1 ---
History of Present Illness History of Present Illness Date Patient Seen: 06/26/20 Time Patient Seen: 06:52 Chief complaint: Syncope Narrative: This is a 54-year-old gentleman who% a recent 5 day history of nausea and diarrhea followed by to syncopal episodes, patient history of hepatitis C liver cancer and liver transplant. Patient takes Protonix, allopurinol, cyclobenzaprine, duloxetine, Lasix, gabapentin, Seroquel, CellCept, Myfortic, lidocaine patch, hydroxyzine, lactulose, fentanyl patch,ondansetron, pyridoxine, rifaximin, ursodiol. Patient reports that starting 5 days ago he developed nausea and diarrhea approximately 6 diarrhea a day x3 days and vomiting times 10 per day for 3 days. 48 hours ago the nausea and vomiting resolved but patient began to have increased dizziness and last night had 1 loss of consciousness in the bedroom where his head on the vacuum pan cleaner followed by a another fall and loss of consciousness in the kitchen where about he hit his head on the oven door causing an abrasion above the right eyebrow and bruising to the lateral side of the right eye with minor abrasions below the eye. Patient currently denies having any diarrhea vomiting since admittance to the hospital he denies any changes in vision weakness to 1 side, difficulty with speech, swallowing, chest pain,shortness of breath, any blood loss or abnormal bruising or bleeding. Patient does note that his dizziness returns with sitting and standing but is not present while lying in bed. In the ER the patient present with a history of liver transplant currently on anti-rejection medications, multiple orthopedic complaints prior surgeries presents with 4 days dizziness and near-syncope after 2 days of of nausea vomiting diarrhea. Vomiting and diarrhea have essentially resolved over the last 2 days however he has continued to have increasing dizziness. Today he was in his kitchen became acutely dizzy fell forward hitting his brow on the edge of a counter and then landing on his knees. He is complaining of cervical spine pain and left shoulder pain. He has a minor abrasion on the right elbow. He states he did not lose consciousness and reports no use of anticoagulants. He states he has not had fevers, chills, chest pain, cough, palpitations, lower extremity edema, increasing abdominal pain or dysuria. Does have a history of elevated ammonia levels and has not been using his lactulose due to the diarrhea and vomiting. Patient History Medical History Hepatitis C (Acute) Liver cancer (Acute) Surgical History (Updated 06/26/20 @ 08:49 by BATSHEVA Louis) H/O right wrist surgery (Acute) History of right hip replacement (Acute) Liver transplant recipient (Acute) Presence of left artificial elbow joint (Acute) Family & Social History Family History Mother Renal failure Father Diabetes mellitus Congestive heart failure Social History: household members none Prior Living Arrangements RV Safety & Behavioral: Feels Safe in Current Yes Environment Suicidal Ideation Description None Suicide Plan Description No Plan Tobacco & Substance use: Tobacco type cigarettes Smoking Status Current some day smoker alcohol intake never alcohol intake frequency a few times a week Substance Use Type marijuana Meds Home Medications and Allergies Home Medications Medication Instructions Recorded Confirmed Type B complex-vitamin C-folic acid 1 tab PO DAILY 01/14/20 01/14/20 History [Kellie-Ramila] acetaminophen [Tylenol] 650 mg PO Q8HR PRN 01/14/20 01/14/20 History allopurinol 100 mg PO DAILY 01/14/20 01/14/20 History cyclobenzaprine 10 mg PO BEDTIME PRN 01/14/20 01/14/20 History cyclosporine 25 mg PO BID 01/14/20 01/14/20 History cyclosporine modified 25 mg PO BID 01/14/20 01/14/20 History docusate sodium 250 mg PO BID PRN 01/14/20 01/14/20 History duloxetine [Cymbalta] 20 mg PO DAILY 01/14/20 01/14/20 History fentanyl See Rx Instructions .ROUTE .COMPLEX 01/14/20 01/14/20 History furosemide 20 mg PO DAILY 01/14/20 01/14/20 History gabapentin 300 mg PO BID 01/14/20 01/14/20 History hydroxyzine pamoate [Vistaril] 25 mg PO BEDTIME PRN 01/14/20 01/14/20 History lactulose 30 ml PO TID 01/14/20 01/14/20 History lidocaine [Lidoderm] 1 patch TOPICAL DAILY 01/14/20 01/14/20 History metoprolol succinate 75 mg PO DAILY 01/14/20 01/14/20 History mycophenolate mofetil [CellCept] 500 mg PO BID 01/14/20 01/14/20 History mycophenolate sodium [Myfortic] 360 mg PO BID 01/14/20 01/14/20 History naloxone [Narcan] 1 spray INTRANASAL NOW PRN 01/14/20 01/14/20 History ondansetron HCl [Zofran] 4 mg PO Q8H PRN 01/14/20 01/14/20 History pantoprazole [Protonix] 20 mg PO DAILY 01/14/20 01/14/20 History pyridoxine (vitamin B6) 50 mg PO DAILY 01/14/20 01/14/20 History quetiapine [Seroquel] 25 mg PO BEDTIME 01/14/20 01/14/20 History rifaximin 550 mg PO BID 01/14/20 01/14/20 History ursodiol 300 mg PO BID 01/14/20 01/14/20 History diphenoxylate-atropine [Lomotil] 1 tab PO DAILY PRN #10 tab 05/14/20 Rx ondansetron 4 mg PO TID-QID PRN #10 tab 05/14/20 Rx pantoprazole [Protonix] 40 mg PO DAILY #30 tab 05/14/20 Rx Allergies Allergy/AdvReac Type Severity Reaction Status Date / Time venom-honey bee Allergy Severe Wheezing Unverified 05/14/20 01:38 [BEE VENOM (HONEY BEE)] codeine Allergy Unknown Unverified 05/14/20 01:38 NSAIDS (Non-Steroidal Allergy Verified 01/14/20 21:48 Anti-Inflamma adhesive tape AdvReac Verified 05/14/20 01:38 copper AdvReac Verified 01/14/20 21:48 dextromethorphan AdvReac Verified 01/14/20 21:48 morphine AdvReac Vomiting Verified 01/14/20 21:48 oxycodone AdvReac Vomiting Verified 01/14/20 21:48 pseudoephedrine AdvReac Verified 01/14/20 21:48 tizanidine AdvReac Verified 01/14/20 21:48 NYQUIL Allergy Unknown Uncoded 05/14/20 01:38 Review of Systems Review of Systems ROS: Yes All systems reviewed with the patient and are negative except as otherwise documented Constitutional Constitutional: Reports frequent falls ENT Ears, Nose, Mouth, and Throat: Yes dizziness and Yes disequilibrium Cardiovascular Cardiovascular: Reports syncope Gastrointestinal Gastrointestinal: Reports abdominal pain, Reports melena, Reports change in bowel habits, Reports loose stools and Reports vomiting Neurologic Neurologic: Reports dizziness, Reports syncope, Reports frequent falls and Reports disequilibrium Exam Vital Signs (past 8 hours): - 06/26/20 02:41 06/26/20 03:19 06/26/20 03:30 Temperature 98.7 F Pulse Rate 73 72 70 Respiratory Rate 18 Blood Pressure 106/74 106/74 Pulse Oximetry 98 96 95 06/26/20 04:00 06/26/20 04:30 06/26/20 04:31 Temperature Pulse Rate 79 99 H 75 Respiratory Rate Blood Pressure 95/66 110/69 Pulse Oximetry 94 97 95 06/26/20 05:00 06/26/20 05:40 06/26/20 06:37 Temperature 96.9 F L Pulse Rate 72 75 Respiratory Rate 16 Blood Pressure 116/82 121/79 Pulse Oximetry 98 99 99 06/26/20 07:35 Temperature 97.6 F Pulse Rate 89 Respiratory Rate 16 Blood Pressure 114/78 Pulse Oximetry 98 Oxygen Delivery Method Room Air Oxygen Flow Rate 0 Narrative Exam Narrative: General: Slightly jaundiced, chronically ill-appearing gentleman with C-collar in place HEENT: Moist mucous membranes, normal sclera with reactive pupils, on abrasion through the right brow that will not need any suturing and minor contusion to the lateral aspect of the right eye. Neck: Tender midline C2-C3 C4. C-collar left in place Respiratory: Lungs are clear to auscultation, no wheezing no rales no rhonchi. Full and symmetrical air movement Chest: Tenderness in the anterior left axillary area without hematoma or contusion Cardiac: Regular rate and rhythm no murmurs no bruits Abdomen: Multiple abdominal scars and palpable abnormalities presumably his liver transplant. He does have good bowel tones and, no flank pain Skin: Mildly jaundiced and dry, no rashes Neurologic: Grossly neurologically intact, moving all extremities Extremities: Minor abrasion to the left elbow, minor contusion to left anterior gaffney well perfused, tenderness to the left deltoid/rotator cuff area without tenderness to clavicular palpation or humeral palpation. Psych: Cooperative, somewhat slowed speech process but fluent without any word-finding difficulties or dysarthria Objective Labs Result Diagrams: 06/26/20 02:30 06/26/20 02:30 Labs: Laboratory Results - last 24 hr 06/26/20 06/26/20 06/26/20 02:30 02:30 02:54 WBC 13.1 H RBC 4.17 L Hgb 13.4 L Hct 41.2 MCV 98.7 MCH 32.2 MCHC 32.6 RDW 19.1 H Plt Count 123 L Neut % (Auto) 45.2 L Lymph % (Auto) 46.0 H [place] % (Auto) 8.2 Eos % (Auto) 0.4 L Baso % (Auto) 0.2 Neut # (Auto) 5900 Lymph # (Auto) 6000 H [place] # (Auto) 1100 H Eos # (Auto) 100 Baso # (Auto) 0 Sodium 130 L Potassium 2.9 L Chloride 93 L Carbon Dioxide 33 H BUN 52 H Creatinine 2.98 H Estimated GFR 21.9 L BUN/Creatinine Ratio 17.4 Glucose 107 H Lactate Calcium 7.9 L Magnesium 1.3 L Total Bilirubin 1.4 H AST 155 H ALT 67 H Alkaline Phosphatase 282 H Ammonia < 9 L Total Protein 6.4 Albumin 3.0 L Globulin 3.4 Albumin/Globulin Ratio 0.9 L Lipase 139 Urine Color Urine Appearance Urine pH Ur Specific [place] Urine Protein Urine Glucose (UA) Urine Ketones Urine Occult Blood Urine Nitrate Urine Bilirubin Urine Urobilinogen Ur Leukocyte Esterase Urine RBC Urine WBC Urine Bacteria Ur Culture Indicated? Micro UA Comment COVID-19 PCR 06/26/20 06/26/20 06/26/20 02:54 03:00 07:00 WBC RBC Hgb Hct MCV MCH MCHC RDW Plt Count Neut % (Auto) Lymph % (Auto) [place] % (Auto) Eos % (Auto) Baso % (Auto) Neut # (Auto) Lymph # (Auto) [place] # (Auto) Eos # (Auto) Baso # (Auto) Sodium Potassium Chloride Carbon Dioxide BUN Creatinine Estimated GFR BUN/Creatinine Ratio Glucose Lactate 1.0 Calcium Magnesium Total Bilirubin AST ALT Alkaline Phosphatase Ammonia Total Protein Albumin Globulin Albumin/Globulin Ratio Lipase Urine Color Yellow Urine Appearance Clear Urine pH 6.0 Ur Specific [place] <=1.005 Urine Protein Negative Urine Glucose (UA) Negative Urine Ketones Negative Urine Occult Blood Negative Urine Nitrate Negative Urine Bilirubin Negative Urine Urobilinogen 0.2 Ur Leukocyte Esterase Negative Urine RBC None seen Urine WBC None seen Urine Bacteria None seen Ur Culture Indicated? Cult not indicated Micro UA Comment Microscopic normal COVID-19 PCR Negative Assessment & Plan Assessment & Plan narrative: Acute dehydration, present on admission -provide fluid rehydration NS at 150 cc an hour -hypo magnesium, 1.3, 4 g IV Mag rider provided -hypokalemia, potassium 2.9, 40 mEq given in ER. -patient to continue home medications -CT of head and spine, and x-ray from shoulder were negative an evaluation from the loss of consciousness -continue to monitor labs and hydration status 2. Liver transplant stable chronic present on admission -patient to continue rejection drugs 3. Syncope -continue fluid hydration normal saline at 150 cc/hour -fall risk -patient to be evaluated per ortho stats Code status: Full code Plan of care: Living Will Surrogate: [id number] Leigh Guidry VTE prophylaxis: Enoxaparin 30 units Patient was admitted for dehydration and syncope. Dehydration likely the cause of syncope hypokalemia and hypomagnesia. Patient was admitted for rehydration and electrolyte stabilization, prevention loss of consciousness and falls. Patient had failed outpatient management and required inpatient acute care hospitalization.
[2020-06-26] MEDS: HYDROMORPHONE 2 MG TABLET PO ×2 (09:28→16:45)
[2020-06-26] MEDS: allopurinoL 100 MG TABLET PO (09:29)
[2020-06-26] MEDS: RIFAXIMIN 550 MG TABLET PO ×2 (09:29→20:47)
[2020-06-26] MEDS: DULOXETINE 20 MG CAPSULE PO (09:29)
[2020-06-26] MEDS: GABAPENTIN 300 MG CAPSULE PO ×2 (09:29→20:48)
[2020-06-26] MEDS: PANTOPRAZOLE 20 MG TABLET PO (09:29)
[2020-06-26] MEDS: METOPROLOL ER 25 MG TABLET 75 MG PO (09:29)
[2020-06-26] MEDS: MYCOPHENOLATE MOFETIL 500 MG TABLET PO ×2 (09:29→20:48)
[2020-06-26] MEDS: LIDOCAINE PATCH 1 EACH ADH..PATCH TOP (09:30)
[2020-06-26] MEDS: PYRIDOXINE (VITAMIN B6) 50 MG TABLET PO (09:30)
[2020-06-26] MEDS: ursodioL 300 MG CAPSULE PO ×2 (09:30→20:47)
[2020-06-26] MEDS: ENOXAPARIN 30 MG/0.3 ML SYRINGE SUBCUT (09:31)
[2020-06-26] MEDS: MAGNESIUM SULFATE 4 GM/100 ML PIGGYBACK IV (09:38)
--- NOTE | 2020-06-26 10:55 | PT.IIE ---
Surgical History (Last Updated 06/26/20 @ 08:49 by BATSHEVA Louis) H/O right wrist surgery (Acute) History of right hip replacement (Acute) Liver transplant recipient (Acute) Presence of left artificial elbow joint (Acute) Medical History (Last Reviewed 06/26/20 @ 08:47 by BATSHEVA Louis) Hepatitis C (Acute) Liver cancer (Acute) Physical Therapy Inpatient Evaluation/Re-Eval M1 PT/OT-IP Prior Functional Status Start: 06/26/20 11:27 Freq: NEEDED Status: Active Protocol: Document 06/26/20 10:55 AB (Rec: 06/26/20 11:42 AB [id number]) Medical Review Prior Functional Status Medical History Reviewed Yes Communication able to make needs known Mobility and Gait pt stated that he is independent with all mobilities and ambulation without AD. Social History Household Members none Living Arrangements RV Number of Floors (Floors) One Floor Number of Stairs To Enter/Railing? 5 steps to enter with bilateral rails Home Environment High Toilet,Walk in Shower Home Equipment Shower Seat without Backrest, Hand Held Shower,Grab Bars Near Toilet,Grab Bars In Shower Employment Status Retired M2 PT-IP Current Condition Start: 06/26/20 11:27 Freq: NEEDED Status: Active Protocol: Document 06/26/20 10:55 AB (Rec: 06/26/20 11:42 AB [id number]) Physical Therapy Current Condition Current Condition Evaluation Date 06/26/20 Treatment Diagnosis dehydration; near syncope; L ant. 5ht&6th rib fx; difficulty in walking Onset Date 06/26/20 Precautions Other Precautions BP; falls M3 PT-IP Subjective Start: 06/26/20 11:27 Freq: NEEDED Status: Active Protocol: Document 06/26/20 10:55 AB (Rec: 06/26/20 11:42 AB [id number]) Subjective Physical Therapy Visit Type Type Initial Evaluation Visit Start Time 10:55 Visit Stop Time 11:23 Total Visit Minutes 28 Number of RECYCLING PROGRAM MANAGER Visits 0 Physical Therapy Visit Comments Patient Comments pt is agreeable to do PT Therapy Pain Assessment Pain When Pain Assessed At Rest Pain Present Pain Present Pain Reported Location Generalized Intensity 8 Scale Used increases to 9/10 with mobility Pain Management Techniques Distraction,Modification of Treatment,Re-positioning, Timing of Activity with Medications M4 PT-IP Mobility and Gait Start: 06/26/20 11:27 Freq: NEEDED Status: Active Protocol: Document 06/26/20 10:55 AB (Rec: 06/26/20 11:42 AB [id number]) PT-Bed Mobility Assessment Supine to Sit Supine to Sit Standby Assistance Sit to Supine Sit to Supine Standby Assistance PT-Transfer Assessment Sit to and From Stand Sit to and from Stand Contact Guard Assistance,1 Person Assistance,Use of Upper Extremities Equipment Transfer Assistive Device Gait Belt,Front Wheeled Walker Orthotic/Prosthetic Devices or Brace: No Comments Mobility Comments BP monitored. BP in supine: 89/65 MA 74 O2 at 96%; obtained another BP in supine: 94/51 MA 77. pt completed supine to sit SBA. pt was able to sit on EOB SBA. c/o slight dizziness. BP in sittin/63 MA varies: 58- 78. after ~ 1min of sittin/72 MA 76 O2 sat 94%. pt completed sit to stand CGA. was able to stand using FWW for support CGA. BP in standin/58. after ~ 1 min of standin/47. pt ambulated in room using FWW CGA to min A ~ 30 ft. pt requested to go back to bed afterwards. BP after ambulation sitting on EOB 103/ 65 . pt completed sit to supine SBA. positioned in bed . call light and table placed within reach. Gait Assessment Gait Gait Assistance Required: Contact Guard Assist,Minimum Assistance Distance (Feet) 30 Able to Maintain Weight Bearing Status Yes During Gait Assistive Devices Assistive Device Gait Belt,Front Wheeled Walker Orthotic/Prosthetic Devices or Brace: No Gait Deviations General Gait Pattern Decreased Stride Length, Decreased Feet Clearance Factors Limiting Gait Function Factors Limiting Gait Function Decreased Activity Tolerance, Decreased Strength,Pain,Poor Balance,Poor Safety Awareness PT-Balance Assessment Sitting Balance and Reactions Static Sitting Balance Ability Good Dynamic Sitting Balance Ability Good Standing Balance and Reactions Static Standing Balance Ability Fair Dynamic Standing Balance Ability Fair Device Used FWW M5 PT-IP Objective Assessments Start: 06/26/20 11:27 Freq: NEEDED Status: Active Protocol: Document 06/26/20 10:55 AB (Rec: 06/26/20 11:42 AB [email or web address]) Orientation Orientation/Cognition Level of Alertness Alert Orientation Name,Age,Birthday,Month,Date, Year,Day of Week,Place, Situation Language Function Ability No Deficits Noted Safety Awareness Understands Safety Issues Memory Description No Deficits Noted Gross Range of Motion Lower Extremity ROM Assessment Within Functional Limits Strength Lower Extremity Strength Hip 4/5 Knee 4/5 Coordination Assessment Gross Coordination Gross Coordination WNL Sensation Assessment Sensation Gross Sensation WNL Muscle Tone Muscle Tone WNL Yes M6 PT-IP Treatment Start: 06/26/20 11:27 Freq: NEEDED Status: Active Protocol: Document 06/26/20 10:55 AB (Rec: 06/26/20 11:42 AB [email or web address]) Physical Therapy Treatment Education Education Provided Safety M7 PT-IP Assessment and Plan Start: 06/26/20 11:27 Freq: NEEDED Status: Active Protocol: Document 06/26/20 10:55 AB (Rec: 06/26/20 11:42 AB [email or web address]) PT Summary Assessment and Plan Potential Rehabilitation Potential Good Status of Condition at Evaluation Evolving Summary Impairments Pain,ROM,Strength,Balance,Bed Mobility,Transfers,Gait, Activity Tolerance Assessment Summary pt requiring CGA to min A with ambulation using FWW. pt lives alone. pt has decrease activity tolerance and needs assistance at this time. d/c plan depending on progress but may require SNF rehab to improve strength and mobility independence. Goals Bed Mobility Goal Independent Transfer Goal Independent,Front Wheeled Walker Gait Goal Independent,Front Wheel Walker Gait Distance 150 Other Goals improve ambulation without AD 150 ft SBA up/down 5 steps B rails SBA Days to Meet Goals 5 Frequency of Treatment Frequency Of Treatment Once a Day Treatment Plan Physical Therapy Treatment Plan Bed Mobility Training,Transfer Training,Gait Training, Therapeutic Exercise,Balance Retraining,Discharge Planning, Hot or Cold Pack,Neuromuscular Re-ed,Coordination Retraining Recommendations To Nursing Amount of Assist Needed 1 Person Assist Discharge Recommendations PT Discharge Recommendations Home with Assistance,Home Health,SNF Rehab Other Discharge Recommendations depending on progress: SNF vs home with assist/HHPT Equipment Needed for Home Before FWW if not safe without AD Discharge Transportation Needs at Discharge Private Vehicle,Wheelchair/ Cabulance
[2020-06-26] MEDS: DEXTROSE 5%-0.45NS W/KCL 40MEQ 1,000 ML 150 MEQ IV ×2 (11:59→19:11)
--- NOTE | 2020-06-26 12:04 | CM.DANOTE ---
Discharge Planning/Care Management DCP: assessment: case received, EMR reviewed. Met briefly with pt during Team Bedside Rounds and then later 1:1 in followup. Introduced self and role. Pt is a 54 year old male who admitted early this morning to care of hospitalist team. Dr. Scott is seeing him today and has added an addendum to the H&P initiated by the night hospitalist. Payer: [employer]. PCP: clarified as : Gayla Wheatley: [facility]. provider listed on face sheet, Natacha Rowley, is retired. POA: confirmed as his sister Leigh Guidry: Kenny Soriano: [phone] Address: clarified: [place] address on the face sheet is no longer current. Pt resides at [facility]: [address] [place] . Pt has a friend and next door neighbor Mario Kelly: cell: [phone]. Mario will be bringing in pt's anti-refection medications today at request of . Pt describes himself as independent without assistive device at baseline when I am feeling good. He says he will be homebound for awhile as he recovers and wonders about home health or other resources that might be helpful to him. He has considered applying for JUSTICE. HH: agencies discussed: first choice is [facility] or [facility]: he says he has one of these in past and it was helpful. He thinks most helpful would be HH RN and NUTRITION AIDE. Conferred with Dr. Scott who agreed to same. Face/Face document started. Referral: [facility]: weekend liaison was unable to say if agency could accept [place] [employer] and would not know until next week. [facility]: referral to [facility]. She anticipates acceptance but adds that any Medicaid plan will not cover HH NUTRITION AIDE and the RN visits are limited to 6 visits per episode of care. In this case pt would seem to meet that parameter. She does note that RN can help steer pt to community resources that may be helpful to him. Will also provide pt with the 2019 [facility] Resource Book and encourage him to follow up with [facility] for more information on possible need for JUSTICE. Pt says his needs are more in the line of laundry and housekeeping assist, meal planning, etc. Not related to basic mobility/ADL needs. P: follow up tomorrow and update pt on status of the HH referral. CM Discharge Assessment Start: 06/26/20 11:59 Freq: Status: Active Protocol: Document 06/26/20 12:02 ITV (Rec: 06/26/20 12:04 ITV [id number]) Discharge Planning Assessment Advance Directives? Yes History Provided By Patient,Medical Record Has Patient been admitted in last 30 No days? Prior Living Arrangements RV Comment [facility] Household Members none Type of transporation used prior to Drives own vehicle admit Independent with ADL's Yes Is patient alert and oriented? Yes Review Status In Process
--- NOTE | 2020-06-26 12:29 | PC.NURSE ---
After walking around the room, came back to the bed and sat down. BP 103/65 p 77
[2020-06-26 15:25] LABS: Add Manual Diff / Slide Review NO; Basophils Absolute Auto 0 /uL (0-100); Basophils Percent Auto 0.2 % (0-2); Eosinophils Absolute Auto 100 /uL (0-450); Eosinophils Percent Auto 1.2 % (2-4); Hematocrit 35.8 % (41-53); Hemoglobin 11.9 g/dL (13.5-17.5); Lymphocytes Absolute Auto 3900 /uL (1100-4500); Lymphocytes Percent Auto 43.5 % (25-40); Mean Corpuscular HGB Conc 33.3 % (30-36); Mean Corpuscular Hemoglobin 32.8 PG (26-34); Mean Corpuscular Volume 98.5 fL (80-100); Monocytes Absolute Auto 900 /uL (0-900); Monocytes Percent Auto 9.7 % (3-14); Neutrophils Absolute Auto 4100 /uL (1500-7000); Neutrophils Percent Auto 45.4 % (50-75); Platelet Count 105 X10^3/uL (150-400); Red Blood Cell Count 3.64 X10^6/uL (4.5-5.9); Red Cell Distribution Width 19.2 % (11.6-14.8); White Blood Cell Count 9.1 X10^3/uL (4.5-11.0)
[2020-06-26 15:41] LABS: INR 1.1 (0.9-1.3); Prothrombin Time 12.8 SECONDS (10.1-12.7)
[2020-06-26 15:43] LABS: Alanine Aminotransferase 63 IU/L (<50); Albumin 2.5 g/dL (3.5-5.0); Albumin Globulin Ratio 0.9 (1.0-2.8); Alkaline Phosphatase 232 U/L (38-126); Aspartate Aminotransferase 130 IU/L (17-59); BUN Creatinine Ratio 18.2 (6-22); Bilirubin Total 1.1 mg/dL (0.2-1.3); Blood Urea Nitrogen 50 mg/dL (9-20); Calcium 7.3 mg/dL (8.4-10.2); Carbon Dioxide 28 mmol/L (22-32); Chloride 100 mmol/L (98-107); Estimated Glomerular Filt Rate 24.1 mL/min (>60); Globulin 2.9 g/dL (1.7-4.1); Glucose 121 mg/dL (70-100); HEMOLYSIS < 15 (0-50); Magnesium 2.6 mg/dL (1.6-2.3); Potassium 3.4 mmol/L (3.4-5.1); Sodium 132 mmol/L (137-145); Total Protein 5.4 g/dL (6.3-8.2)
[2020-06-26] MEDS: SENNOSIDES 8.6 MG TABLET 17.2 MG PO (20:47)
[2020-06-26] MEDS: QUETIAPINE 25 MG TABLET PO (20:48)
[2020-06-27] VITALS (7 sets, daily range): BP systolic 91–123; BP diastolic 61–90; PULSE 60–70; RESP 16; TEMP 36.1–36.4; O2SAT 97–99
[2020-06-27] MEDS: HYDROMORPHONE 2 MG TABLET PO ×3 (00:05→08:08)
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
[2020-06-27] MEDS: DEXTROSE 5%-0.45NS W/KCL 40MEQ 1,000 ML 150 MEQ IV ×2 (01:55→08:16)
[2020-06-27 06:39] LABS: Add Manual Diff / Slide Review NO; Basophils Absolute Auto 100 /uL (0-100); Eosinophils Absolute Auto 200 /uL (0-450); Eosinophils Percent Auto 2.1 % (2-4); Hematocrit 35.9 % (41-53); Hemoglobin 11.8 g/dL (13.5-17.5); Lymphocytes Absolute Auto 3400 /uL (1100-4500); Lymphocytes Percent Auto 44.6 % (25-40); Mean Corpuscular HGB Conc 32.8 % (30-36); Mean Corpuscular Hemoglobin 32.6 PG (26-34); Mean Corpuscular Volume 99.5 fL (80-100); Monocytes Absolute Auto 800 /uL (0-900); Monocytes Percent Auto 10.3 % (3-14); Neutrophils Absolute Auto 3100 /uL (1500-7000); Platelet Count 103 X10^3/uL (150-400); Red Blood Cell Count 3.61 X10^6/uL (4.5-5.9); White Blood Cell Count 7.5 X10^3/uL (4.5-11.0)
[2020-06-27 06:49] LABS: BUN Creatinine Ratio 18.9 (6-22); Blood Urea Nitrogen 50 mg/dL (9-20); Calcium 7.2 mg/dL (8.4-10.2); Carbon Dioxide 29 mmol/L (22-32); Chloride 102 mmol/L (98-107); Estimated Glomerular Filt Rate 25.1 mL/min (>60); Glucose 113 mg/dL (70-100); HEMOLYSIS < 15 (0-50); Potassium 4.7 mmol/L (3.4-5.1); Sodium 133 mmol/L (137-145)
[2020-06-27] MEDS: LIDOCAINE PATCH 1 EACH ADH..PATCH TOP (08:07)
[2020-06-27] MEDS: ENOXAPARIN 30 MG/0.3 ML SYRINGE SUBCUT (08:07)
[2020-06-27] MEDS: GABAPENTIN 300 MG CAPSULE PO (08:08)
[2020-06-27] MEDS: allopurinoL 100 MG TABLET PO (08:08)
[2020-06-27] MEDS: PANTOPRAZOLE 20 MG TABLET PO (08:08)
[2020-06-27] MEDS: RIFAXIMIN 550 MG TABLET PO (08:08)
[2020-06-27] MEDS: ursodioL 300 MG CAPSULE PO (08:09)
[2020-06-27] MEDS: PYRIDOXINE (VITAMIN B6) 50 MG TABLET PO (08:09)
[2020-06-27] MEDS: MYCOPHENOLATE MOFETIL 500 MG TABLET PO (08:09)
[2020-06-27] MEDS: DULOXETINE 20 MG CAPSULE PO (08:09)
--- NOTE | 2020-06-27 12:00 | PT.IPTN ---
Physical Therapy Treatment Note M2 PT-IP Current Condition Start: 06/26/20 11:27 Freq: NEEDED Status: Active Protocol: Document 06/26/20 10:55 AB (Rec: 06/26/20 11:42 AB [id number]) Physical Therapy Current Condition Current Condition Evaluation Date 06/26/20 Treatment Diagnosis dehydration; near syncope; L ant. 5ht&6th rib fx; difficulty in walking Onset Date 06/26/20 Precautions Other Precautions BP; falls M3 PT-IP Subjective Start: 06/26/20 11:27 Freq: NEEDED Status: Active Protocol: Document 06/27/20 11:32 (Rec: 06/27/20 13:02 [email or web address]) Subjective Physical Therapy Visit Type Type Treatment Note Visit Start Time 11:32 Visit Stop Time 12:00 Total Visit Minutes 28 Notes DIXON Dillon led tx under direct supervison of Lisa JI. Number of YARDAGE CONTROL CLERK Visits 1 Physical Therapy Visit Comments Patient Comments pt is agreeable to do PT Therapy Pain Assessment Pain When Pain Assessed At Rest Pain Present Pain Present Pain Reported Location left shoulder/right arm/back Description Tender Pain Management Techniques Modification of Treatment,Re- positioning M4 PT-IP Mobility and Gait Start: 06/26/20 11:27 Freq: NEEDED Status: Active Protocol: Document 06/27/20 11:32 (Rec: 06/27/20 13:02 [email or web address]) PT-Bed Mobility Assessment Rolling Type of Rolling Roll to Left Level of Assist Standby Assistance Supine to Sit Supine to Sit Standby Assistance,1 Person Assistance Scooting Scooting to Edge of Bed Standby Assistance Scooting Up and Down in Bed Standby Assistance PT-Transfer Assessment Sit to and From Stand Sit to and from Stand Standby Assistance,1 Person Assistance,Use of Upper Extremities Equipment Transfer Assistive Device Gait Belt,Front Wheeled Walker Transfers Transfer Destination Chair Transfer Technique Stand Step Pivot Transfer Ability Level of Assist Standby Assistance,1 Person Assistance Comments Mobility Comments Pt in bed upon arrival. Supine BP 107/68. Bed mobility SBA. Sitting BP 123/90. Sit to stand SBA w/ FWW. Standing BP 114/75. Pt amb ~300' total w/ SPTA managing IV pole. Amb to therapy stairs B rails ascend/ descend 3 steps w/ step over step pattern w/ CGA at first for safety, ended SBA. Proceeded to amb hallway loop back to room SBA w/ FWW demonstrating step through gait, decreased stride length/ foot clearance. Stand to sit in chair SBA w/ FWW. Sitting BP 114/81. Pt left w/ call light and all needs within reach. Pt BP discussed w/ WEB SOFTWARE ENGINEER, left note on RN's desk. Gait Assessment Gait Gait Assistance Required: Standby Assistance,1 Person Assist Distance (Feet) 300 Able to Maintain Weight Bearing Status Yes During Gait Assistive Devices Assistive Device Gait Belt,Front Wheeled Walker Orthotic/Prosthetic Devices or Brace: No Gait Deviations General Gait Pattern Decreased Stride Length, Decreased Feet Clearance Factors Limiting Gait Function Factors Limiting Gait Function Decreased Activity Tolerance, Decreased Strength,Pain,Poor Balance,Poor Safety Awareness Comments Gait Comments See mobility comments Stair Climbing Assessment Evaluation Level of Assist On Stairs Standby Assistance,Contact Guard Assistance,1 Person Assistance Devices Stair Climbing Assistive Devices None Technique/Endurance Stair Climbing Direction Ascend and Descend Stair Climbing Technique Step Over Step Number of Steps Climbed 3 Stair Climbing Set # Repetitions (reps) 1 Comments Stair Climbing Comments See mobility comments. M5 PT-IP Objective Assessments Start: 06/26/20 11:27 Freq: NEEDED Status: Active Protocol: Document 06/26/20 10:55 AB (Rec: 06/26/20 11:42 AB [id number]) Orientation Orientation/Cognition Level of Alertness Alert Orientation Name,Age,Birthday,Month,Date, Year,Day of Week,Place, Situation Language Function Ability No Deficits Noted Safety Awareness Understands Safety Issues Memory Description No Deficits Noted Gross Range of Motion Lower Extremity ROM Assessment Within Functional Limits Strength Lower Extremity Strength Hip 4/5 Knee 4/5 Coordination Assessment Gross Coordination Gross Coordination WNL Sensation Assessment Sensation Gross Sensation WNL Muscle Tone Muscle Tone WNL Yes M6 PT-IP Treatment Start: 06/26/20 11:27 Freq: NEEDED Status: Active Protocol: Document 06/26/20 10:55 AB (Rec: 06/26/20 11:42 AB [email or web address]) Physical Therapy Treatment Education Education Provided Safety M7 PT-IP Assessment and Plan Start: 06/26/20 11:27 Freq: NEEDED Status: Active Protocol: Document 06/27/20 11:32 (Rec: 06/27/20 13:02 [email or web address]) PT Summary Assessment and Plan Potential Rehabilitation Potential Good Status of Condition at Evaluation Evolving Summary Impairments Pain,ROM,Strength,Balance,Bed Mobility,Transfers,Gait, Activity Tolerance Assessment Summary Orthostatic BP monitored throughout tx (see mobility section for details, BP remained within normal range, minor dizziness, but cleared up). Pt is SBA w/ all activities. Pt amb 3 steps ascend/descend step over step gait. Amb a total of ~300' w/ FWW. Goals Bed Mobility Goal Independent Transfer Goal Independent,Front Wheeled Walker Gait Goal Independent,Front Wheel Walker Gait Distance 150 Other Goals improve ambulation without AD 150 ft SBA up/down 5 steps B rails SBA Days to Meet Goals 5 Frequency of Treatment Frequency Of Treatment Once a Day Treatment Plan Physical Therapy Treatment Plan Bed Mobility Training,Transfer Training,Gait Training, Therapeutic Exercise,Balance Retraining,Discharge Planning, Hot or Cold Pack,Neuromuscular Re-ed,Coordination Retraining Other Recommendations and Next Treatment trial ambulation without AD Focus and stairs. Recommendations To Nursing Amount of Assist Needed 1 Person Assist Discharge Recommendations PT Discharge Recommendations Home with Assistance,Home Health,SNF Rehab Other Discharge Recommendations depending on progress: SNF vs home with assist/HHPT Equipment Needed for Home Before FWW if not safe without AD Discharge Transportation Needs at Discharge Private Vehicle,Wheelchair/ Cabulance
[2020-06-27] MEDS: fentaNYL 25 MCG/PATCH TOP (13:12)
--- NOTE | 2020-06-27 13:49 | PT-IP ANOTE ---
Met with pt to dispense and size FWW from [facility]. No charge. Pt is preparing for discharge.
--- NOTE | 2020-06-27 14:01 | CM.DPC ---
DCP: continued: OBS admission status: continues: per GUILLERMO Hernandez. Met this morning with pt during Team Bedside Rounds. Dr. Scott outlined the POC for pt with d/c anticipated later today. Pt worked today with PT and did well. A FWW was recommended and PT Mariella has now dispensed one to pt at his request from the Therapy consigment closet and to be billed to his insurance. Met again just now with Dr. Scott and pt and then stayed on afterwards for further discussion. Dr. Scott confirmed for pt that he was ready for a d/c to home today and PCP followup planned. MILLA RN was set up with [facility] yesterday. Went over specifics of this yesterday and again today with pt and gave him the [facility] brochure. He is aware that they will contact him prior to coming to see him. Followed up on the discussion of getting in someone to help him with prn meal planning, housekeeping and etc. He brought in his neighbor Bruna, who lives in directly accross from pt and who works as cardiac care unit nurse with [employer]. She says she would be in a perfect position to help him if he was on Salima or wished to pay privately. She said she helped pt do a SALIMA application online last week and pt confirms same. Neither were certain if it had been received and Bruna said they planned to call [facility] this coming week to check on this. Pt says he has no income at this time beyond an undisclosed amount that I do not have to report. 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 Reminded pt that he could elect to pay someone to do prn chores for him with private funds but at this time that would be his only option. Provided the [facility] Guide with [facility] highlighted. Encouraged him to talk with them about any other resources that might be available to him in the community as well as the SALIMA followup. Encourage him to call Meals on Wheels but he notes at this time he would rather be able to have [facility] my help him out if he is able to get on SALIMA. Spoke also to Mario on same face/time chat. He was preparing to come to get pt. Dr. Scott had indicated pt would be ready to go in an hour and that she had finalized the d/c orders. This info was imparted. Mario noted that he was borrowing a FWW for pt to use but pt assured him that he was getting one issues to him from the hospital. P: home today, [facility] and neighbors prn assist as per above.
--- NOTE | 2020-06-27 15:58 | PC.NURSE ---
Pt given d/c instructions and stated understanding.d/c'd to care of friend. Escorted to car via w/c by Laura GONZÁLES. All home meds returned to Pt . Pt's belongings account for and transported with Pt.
--- NOTE | 2020-06-27 17:22 | P.DS_ITS ---
History of Present Illness History of Present Illness Date Patient Seen: 06/27/20 Chief complaint: Syncope Narrative: This is a 54-year-old gentleman who% a recent 5 day history of nausea and diarrhea followed by to syncopal episodes, patient history of hepatitis C liver cancer and liver transplant. Patient takes Protonix, allopurinol, cyclobenzaprine, duloxetine, Lasix, gabapentin, Seroquel, CellCept, Myfortic, lidocaine patch, hydroxyzine, lactulose, fentanyl patch,ondansetron, pyridoxine, rifaximin, ursodiol. Patient reports that starting 5 days ago he developed nausea and diarrhea approximately 6 diarrhea a day x3 days and vomiting times 10 per day for 3 days. 48 hours ago the nausea and vomiting resolved but patient began to have increased dizziness and last night had 1 loss of consciousness in the bedroom where his head on the vacuum well cleaner followed by a another fall and loss of consciousness in the kitchen where about he hit his head on the oven door causing an abrasion above the right eyebrow and bruising to the lateral side of the right eye with minor abrasions below the eye. Patient currently denies having any diarrhea vomiting since admittance to the hospital he denies any changes in vision weakness to 1 side, difficulty with speech, swallowing, chest pain,shortness of breath, any blood loss or abnormal bruising or bleeding. Patient does note that his dizziness returns with sitting and standing but is not present while lying in bed. In the ER the patient present with a history of liver transplant currently on anti-rejection medications, multiple orthopedic complaints prior surgeries presents with 4 days dizziness and near-syncope after 2 days of of nausea vomiting diarrhea. Vomiting and diarrhea have essentially resolved over the last 2 days however he has continued to have increasing dizziness. Today he was in his kitchen became acutely dizzy fell forward hitting his brow on the edge of a counter and then landing on his knees. He is complaining of cervical spine pain and left shoulder pain. He has a minor abrasion on the right elbow. He states he did not lose consciousness and reports no use of anticoagulants. He states he has not had fevers, chills, chest pain, cough, palpitations, lower extremity edema, increasing abdominal pain or dysuria. Does have a history of elevated ammonia levels and has not been using his lactulose due to the diarrhea and vomiting. Discharge Providers Provider Date of admission: 06/26/20 04:28 Discharge Date: 06/27/20 Primary care physician: Natacha Rowley MD Consults: 06/26/20 04:57 Consult to Discharge Planning Routine Comment: Consult to Physical Therapy Evaluate & Treat Comment: Physician Instructions: Evaluate and Treat 06/26/20 11:41 Consult to Home Health Routine Comment: Reason For Exam: RN and FEDERAL MEDIATION COMMISSIONER at d/c 06/27/20 13:37 Consult to Discharge Planning Routine Comment: FWW at d/: as per PT recommendation Discharge provider: Oliva Scott MD Summary Hospital Course Discharge Diagnosis: 1. Syncope 2. Acute on chronic renal failure 3. Acute dehydration 4. Right scalp laceration following fall 5. Nausea vomiting diarrhea resolved 6. History of liver transplant 7. Gap 8. Biliary stone 9. History of hypertension 10. GERD Hospital Course: Patient was admitted to the hospital following a fall. He suffered a laceration over the right scalp. The patient was found to be hypotensive. He was also noted to be orthostatic. Patient was given IV hydration. He had improvement in his blood pressure as well as improvement in his BUN and creatinine. The patient's metoprolol and Lasix were held. He was able to ambulate with physical therapy and occupational therapy. He did ambulate 300 ft with standby assist. The patient did request additional help for him while at home. He was seen by discharge planning who provided home health referral, in addition to a [facility] referral, in addition to private pay sitters as well. Overall the patient felt improved and back to his baseline. He was deemed appropriate for discharge and arrangements were made for him to discharge home. Exam Vital Signs (past 8 hours): - 06/27/20 09:25 06/27/20 11:35 06/27/20 GERD 12:25 Temperature 96.9 F L 97.0 F L Pulse Rate 67 70 Pulse Rate [Orthostatic Lying] 70 Pulse Rate [Orthostatic Sitting] 70 Pulse Rate [Orthostatic Standing] 70 Respiratory Rate 16 16 Blood Pressure 91/63 107/68 Blood Pressure [Orthostatic Lying] 107/68 Blood Pressure [Orthostatic Sitting] 123/90 Blood Pressure [Orthostatic Standing] 114/75 Pulse Oximetry 97 97 06/27/20 13:00 Temperature Pulse Rate Pulse Rate [Orthostatic Lying] Pulse Rate [Orthostatic Sitting] Pulse Rate [Orthostatic Standing] Respiratory Rate Blood Pressure Blood Pressure [Orthostatic Lying] Blood Pressure [Orthostatic Sitting] Blood Pressure [Orthostatic Standing] Pulse Oximetry 99 Oxygen Delivery Method Room Air Oxygen Flow Rate 0 Narrative Exam Narrative: Pleasant gentleman resting comfortably Lungs: Clear to auscultation Cardiac exam: Regular rate and rhythm normal S1-S2 with a 2/6 systolic ejection murmur Abdomen: Soft nontender nondistended Extremities: No edema Objective Labs Result Diagrams: 06/27/20 06:16 06/27/20 06:16 Labs: Laboratory Results - last 24 hr 06/27/20 06/27/20 06:16 06:16 WBC 7.5 RBC 3.61 L Hgb 11.8 L Hct 35.9 L MCV 99.5 MCH 32.6 MCHC 32.8 RDW 19.0 H Plt Count 103 L Neut % (Auto) 42.0 L Lymph % (Auto) 44.6 H Sanders % (Auto) 10.3 Eos % (Auto) 2.1 Baso % (Auto) 1.0 Neut # (Auto) 3100 Lymph # (Auto) 3400 Sanders # (Auto) 800 Eos # (Auto) 200 Baso # (Auto) 100 Sodium 133 L Potassium 4.7 D Chloride 102 Carbon Dioxide 29 BUN 50 H Creatinine 2.65 H Estimated GFR 25.1 L BUN/Creatinine Ratio 18.9 Glucose 113 H Calcium 7.2 L Discharge Assessment & Plan Assessment and Plan Assessment: 1. Syncope 2. Volume depletion 3. Acute on chronic renal failure 4. History of liver transplant secondary to hepatitis-C 5. Hypertension 6. Gout Plan of Treatment: Medications as prescribed Patient will follow-up with primary care physician next week Home health referral has been made Discharge Plan Discharge Plan Patient Disposition: Home Discharge orders & Medications Prescriptions: Continued quetiapine [Seroquel] 25 mg Tablet 25 mg PO BEDTIME RF: 0 cyclobenzaprine 10 mg Tablet 10 mg PO BEDTIME PRN (Reason: Spasms) RF: 0 cyclosporine modified 25 mg Capsule 25 mg PO BID RF: 0 ondansetron HCl [Zofran] 4 mg Tablet 4 mg PO Q8H PRN (Reason: Nausea) RF: 0 allopurinol 100 mg Tablet 100 mg PO DAILY RF: 0 mycophenolate mofetil [CellCept] 500 mg Tablet 500 mg PO BID RF: 0 lidocaine [Lidoderm] 5 % Adhesive Patch,Medicated 1 patch TOPICAL DAILY RF: 0 ursodiol 300 mg Capsule 300 mg PO BID RF: 0 gabapentin 300 mg Capsule 300 mg PO BID RF: 0 Kellie-Ramila 0.8 mg Tablet 1 tab PO DAILY RF: 0 pyridoxine (vitamin B6) 100 mg Tablet 100 mg PO DAILY RF: 0 fentanyl 25 mcg/hr Patch 72 Hour See Rx Instructions .ROUTE .COMPLEX RF: 0 docusate sodium 250 mg Capsule 250 mg PO BID PRN (Reason: Constipation) RF: 0 hydroxyzine pamoate [Vistaril] 25 mg Capsule 25 mg PO BEDTIME PRN (Reason: Itching) RF: 0 duloxetine [Cymbalta] 20 mg Capsule,Delayed Release(Dr/Ec) 20 mg PO DAILY RF: 0 lactulose 10 gram/15 mL Solution 30 ml PO TID RF: 0 acetaminophen [Tylenol] 325 mg Capsule 650 mg PO Q8HR PRN (Reason: Pain, Moderate) RF: 0 rifaximin 550 mg Tablet 550 mg PO BID RF: 0 Narcan 4 mg/actuation [place],Non-Aerosol 1 spray INTRANASAL NOW PRN (Reason: (Drug) Ingestion) RF: 0 metoprolol succinate 25 mg Capsule,Sprinkle,Er 24hr 75 mg PO DAILY RF: 0 ondansetron 4 mg tablet,disintegrating 4 mg PO TID-QID PRN (Reason: nausea and vomiting) Qty: 10 RF: 0 diphenoxylate-atropine [Lomotil] 2.5-0.025 mg tablet 1 tab PO DAILY PRN (Reason: diarrhea) Qty: 10 RF: 0 pantoprazole [Protonix] 40 mg tablet,delayed release (DR/EC) 40 mg PO DAILY Qty: 30 RF: 0 Discontinued furosemide 20 mg Tablet 20 mg PO DAILY RF: 0 Follow up/Referrals: Natacha Rowley MD [Primary Care Provider] - Discharge Health Status Multidrug resistant organism: No MDRO Diet/Activity/Treatments Diet: Low-fat and Low-sodium Visit Report/Discharge Packet Instructions: DI for Dehydration -- Adult, DI for Hypokalemia Visit Report Forms: Patient Portal/API, Stroke Signs & Symptoms Discharge Data Primary Care Provider: Natacha Rowley Attending Provider: Sowmya Henriquez Admit Date/Time: 06/26/20 04:28 Discharges patient from system. Discharge Date/Time: 06/27/20 14:20
[2020-06-28 21:07] LABS: Cyclosporine, Blood 65 ng/mL (100-400)
--- NOTE | 2020-06-30 22:15 | PC.NURSE ---
Late Entry; Magnesium infusion initiated 06/26 at 09:38, complete at 11:39.
--- NOTE | 2020-07-01 11:10 | CM.DPNOTE ---
Faxed DC Summary to [facility] on 06/28/20. Scanned fax confirmation sheet. Penny Copeland CM Asst.
== END 2020-06-27 14:20 | disposition home or self-care (01) ==
LOC: ED 04:12 → AC 04:28
PROVIDERS: Internal Medicine; Admitting Provider Nurse Practitioner Family; Emergency Provider Emergency Medicine; Family Provider Internal Medicine; PCP Internal Medicine; Referring Provider Emergency Medicine; Visit Provider Nurse Practitioner Family
DX: E86.0 Dehydration (principal); R55 Syncope and collapse; Z94.4 Liver transplant status; W18.39XA Other fall on same level, initial encounter; S00.81XA Abrasion of other part of head, initial encounter; F17.210 Nicotine dependence, cigarettes, uncomplicated; S16.1XXA Strain of muscle, fascia and tendon at neck level, initial encounter; S22.42XA Multiple fractures of ribs, left side, initial encounter for closed fracture; N17.9 Acute kidney failure, unspecified; Z11.59 Encounter for screening for other viral diseases
CPT/HCPCS: 36415; 70450; 72125; 73030; 80048; 80053; 80158; 81001; 82140; 82962; 83605; 83690; 83735; 85025; 85610; 87635; 93005; 96361; 96372; 96374; 97116; 97162; 97530; 99285; G0378; J1170; J1650; J3475; J3480

== ENCOUNTER 2020-07-26 06:00 | Observation (INO) | payer OTHER, MEDICAID, SELFPAY ==
[2020-06-26 05:49] VITALS: BMI 28.9
[2020-07-26] VITALS (27 sets, daily range): BP systolic 122–182; BP diastolic 70–104; PULSE 68–98; RESP 16–18; TEMP 36.6–37.3; O2SAT 91–100; BMI 29.5
--- NOTE | 2020-07-26 06:28 | ED.NAVMDI ---
HPI - Nausea/Vomiting/Diarrhea <Mei Akhtar, DO - Last Filed: 07/30/20 07:10> General Chief complaint: Nausea/Vomiting/Diarrhea Stated complaint: Nausea and Vomiting Time Seen by Provider: 07/26/20 06:06 Source: patient and EMS Mode of arrival: EMS Limitations: no limitations History of Present Illness HPI Narrative: Patient is a 54-year-old male with history of liver transplant currently on anti-rejection medications presenting today with nausea vomiting and diarrhea. He was admitted last month for the same. EMS reports fever however he is afebrile in the ED. He has had numerous episodes of vomiting and nonbloody diarrhea over the last day. He states he overall feels dehydrated and is not doing well. He does have some mild abdominal pain MD complaint: nausea, vomiting, diarrhea and abdominal pain Onset (ago): hour(s) Related Data Home Medications Medication Instructions Recorded Confirmed Narcan 1 spray INTRANASAL NOW PRN 01/14/20 06/26/20 Kellie-Ramila 1 tab PO DAILY 01/14/20 06/26/20 acetaminophen [Tylenol] 650 mg PO Q8HR PRN 01/14/20 06/26/20 allopurinol 100 mg PO DAILY 01/14/20 06/26/20 cyclobenzaprine 10 mg PO BEDTIME PRN 01/14/20 06/26/20 cyclosporine modified 25 mg PO BID 01/14/20 06/26/20 docusate sodium 250 mg PO BID PRN 01/14/20 06/26/20 duloxetine [Cymbalta] 20 mg PO DAILY 01/14/20 06/26/20 fentanyl See Rx Instructions .ROUTE .COMPLEX 01/14/20 06/26/20 gabapentin 300 mg PO BID 01/14/20 06/26/20 hydroxyzine pamoate [Vistaril] 25 mg PO BEDTIME PRN 01/14/20 06/26/20 lactulose 30 ml PO TID 01/14/20 06/26/20 lidocaine [Lidoderm] 1 patch TOPICAL DAILY 01/14/20 06/26/20 metoprolol succinate 75 mg PO DAILY 01/14/20 06/26/20 mycophenolate mofetil [CellCept] 500 mg PO BID 01/14/20 06/26/20 ondansetron HCl [Zofran] 4 mg PO Q8H PRN 01/14/20 06/26/20 pyridoxine (vitamin B6) 100 mg PO DAILY 01/14/20 06/26/20 quetiapine [Seroquel] 25 mg PO BEDTIME 01/14/20 06/26/20 rifaximin 550 mg PO BID 01/14/20 06/26/20 ursodiol 300 mg PO BID 01/14/20 06/26/20 furosemide 20 mg PO DAILY 07/26/20 07/26/20 Previous Rx's Medication Instructions Recorded diphenoxylate-atropine [Lomotil] 1 tab PO DAILY PRN #10 tab 05/14/20 ondansetron 4 mg PO TID-QID PRN #10 tab 05/14/20 pantoprazole [Protonix] 40 mg PO DAILY #30 tab 05/14/20 Allergies Allergy/AdvReac Type Severity Reaction Status Date / Time codeine Allergy Severe Vomiting Verified 06/26/20 10:11 NSAIDS (Non-Steroidal Allergy Severe Abdominal Verified 06/26/20 10:09 Anti-Inflamma Pain venom-honey bee Allergy Severe Wheezing Verified 06/26/20 10:11 [BEE VENOM (HONEY BEE)] dextromethorphan AdvReac Severe Seizure Verified 06/26/20 10:09 copper AdvReac Intermediate Verified 06/26/20 10:09 morphine AdvReac Intermediate Vomiting Verified 06/26/20 10:09 oxycodone AdvReac Intermediate Vomiting Verified 06/26/20 10:09 tizanidine AdvReac Unknown Verified 06/26/20 10:09 adhesive tape AdvReac Verified 06/26/20 10:09 pseudoephedrine AdvReac Verified 01/14/20 21:48 NYQUIL Allergy Unknown Uncoded 05/14/20 01:38 Review of Systems <Mei Akhtar, - Last Filed: 07/30/20 07:10> Review of Systems Narrative: GENERAL: Denies chills, fatigue, malaise, fever, sweats, travel HEENT: Denies sinus pain, ear pain, sore throat, difficulty swallowing, neck pain RESPIRATORY: Denies dyspnea, cough, wheezing, hemoptysis, sputum. CARDIOVASCULAR: Denies chest pain, palpitations, orthopnea, edema GASTROINTESTINAL: See HPI : Denies dysuria, frequency, incontinence, hematuria, urinary retention, flank pain. MUSCULOSKELETAL: Denies weakness, joint pain, or bony pain SKIN: No rash, no erythema, no pruritus NEUROLOGIC: Denies weakness, dizziness, headache, numbness, change in speech, confusion PSYCHIATRIC: No concerning psychosocial issues. 12 point review of systems is negative except for those stated above and HPI Patient History <Mei Akhtar DO - Last Filed: 07/30/20 07:10> Medical History Cirrhosis of liver CKD (chronic kidney disease) Compression fracture Depression GERD (gastroesophageal reflux disease) Gout Hepatitis C Hypertension Liver cancer GUILLE (obstructive sleep apnea) Osteoporosis Surgical History H/O right wrist surgery History of right hip replacement Liver transplant recipient Presence of left artificial elbow joint Family History Mother Renal failure Father Diabetes mellitus Congestive heart failure Social History household members: none Smoking Status: Current some day smoker alcohol intake: former Smoking Status: Current some day smoker alcohol intake frequency: a few times a week Alcohol type: hard liquor Substance Use Type: marijuana Exam <Mei Akhtar DO - Last Filed: 07/30/20 07:10> Initial Vital Signs Initial Vital Signs: Vital Signs Temperature 98.7 F 07/26/20 06:08 Pulse Rate 76 07/26/20 06:08 Respiratory Rate 17 07/26/20 06:08 Blood Pressure 182/92 H 07/26/20 06:08 Pulse Oximetry 94 07/26/20 06:08 GENERAL: Week actively vomiting male HEENT: Head atraumatic,EOMI, pupils reactive, face symmetric, dry mucous membranes CARDIOVASCULAR: Regular rate and rhythm without murmurs, rubs or gallops. RESPIRATORY: Breath sounds equal bilaterally, no wheezes rales or rhonchi. ABDOMEN: Soft, mild tenderness no distension no guarding rebound multiple scars seen on abdomen EXTREMITIES: Normal range of motion, no clubbing or edema. Neurovascularly intact NEUROLOGICAL: Alert and oriented x4.Normal gait and speech. Cranial nerves II through XII grossly intact. SKIN: Warm, dry, no laceration, no petechiae, no rashes or lesions. <Wanda Tang MD - Last Filed: 07/26/20 10:19> Initial Vital Signs Initial Vital Signs: Vital Signs Temperature 98.7 F 07/26/20 06:08 Pulse Rate 76 07/26/20 06:08 Respiratory Rate 17 07/26/20 06:08 Blood Pressure 182/92 H 07/26/20 06:08 Pulse Oximetry 94 07/26/20 06:08 Course <Mei Akhtar DO - Last Filed: 07/30/20 07:10> Orders Ordered: Discontinued Medications Allopurinol (Allopurinol 100 Mg Tablet) 100 mg PO DAILY [facility] Last Admin: 07/27/20 07:55 Dose: 100 mg Documented by: Cyclobenzaprine HCl (Cyclobenzaprine 10 Mg Tablet) 10 mg PO BEDTIME PRN PRN Reason: Spasms Diphenhydramine HCl (Diphenhydramine 25 Mg Tablet) 25 mg PO NOW ONE Stop: 07/27/20 01:01 Last Admin: 07/27/20 01:46 Dose: 25 mg Documented by: Duloxetine HCl (Duloxetine 20 Mg Capsule) 20 mg PO DAILY [facility] Last Admin: 07/27/20 07:55 Dose: 20 mg Documented by: Fentanyl (Fentanyl 25 Mcg/Patch) 25 mcg TOP Q72H [facility] Last Admin: 07/26/20 14:33 Dose: 25 mcg Documented by: Furosemide (Furosemide 20 Mg Tablet) 20 mg PO DAILY [facility] Last Admin: 07/27/20 07:56 Dose: 20 mg Documented by: Gabapentin (Gabapentin 300 Mg Capsule) 300 mg PO BID [facility] Last Admin: 07/27/20 07:56 Dose: 300 mg Documented by: Hydromorphone HCl (Hydromorphone 1 Mg Inj) 1 mg IV NOW ONE Stop: 07/26/20 06:43 Last Admin: 07/26/20 06:57 Dose: 1 mg Documented by: Hydromorphone HCl (Hydromorphone 0.5 Mg Inj) 0.5 mg IV Q15MIN PRN PRN Reason: Pain, Last Admin: 07/26/20 07:42 Dose: 0.5 mg Documented by: Hydromorphone HCl (Hydromorphone 1 Mg Inj) 1 mg IV NOW ONE Stop: 07/26/20 07:57 Last Admin: 07/26/20 08:06 Dose: 1 mg Documented by: Hydromorphone HCl (Hydromorphone 1 Mg Inj) 1 mg IV NOW ONE Stop: 07/26/20 09:25 Last Admin: 07/26/20 09:34 Dose: 1 mg Documented by: Hydromorphone HCl (Hydromorphone 1 Mg Inj) 1 mg IV NOW ONE Stop: 07/26/20 10:47 Last Admin: 07/26/20 11:18 Dose: 1 mg Documented by: Hydromorphone HCl (Hydromorphone 2 Mg Tablet) 2 mg PO Q4HR PRN PRN Reason: Pain, Severe (7-10) Last Admin: 07/27/20 08:01 Dose: 2 mg Documented by: Hydromorphone HCl (Hydromorphone 1 Mg Inj) 1 mg IV Q3H PRN PRN Reason: Breakthrough Pain Last Admin: 07/27/20 02:01 Dose: 1 mg Documented by: Sodium Chloride (Normal Saline 0.9%) 1,000 mls @ 1,000 mls/hr IV CONT JUNIOR Last Admin: 07/27/20 00:49 Dose: 100 mls/hr Documented by: Sodium Chloride (Normal Saline 0.9%) 2,721.54 mls @ 907.18 mls/hr 30 ml/kg infuse over 3 hr (2721.54 ml) IV NOW ONE Stop: 07/26/20 10:55 Last Infusion: 07/26/20 11:32 Dose: Infused Documented by: Magnesium Sulfate (Magnesium Sulfate) 2 gm in 50 mls @ 25 mls/hr IV NOW ONE Stop: 07/27/20 09:29 Last Admin: 07/27/20 07:52 Dose: 25 mls/hr Documented by: Influenza Virus Vaccine (Influenza Vaccine 0.5 Ml Syringe) 0.5 ml IM .ONCE ONE Stop: 07/27/20 09:01 Last Admin: 07/27/20 07:56 Dose: 0.5 ml Documented by: Ketorolac Tromethamine (Ketorolac 60 Mg/2 Ml Vial) 15 mg IV NOW ONE Stop: 07/26/20 06:43 Last Admin: 07/26/20 06:57 Dose: 15 mg Documented by: Lidocaine (Lidocaine Patch 1 Each Adh..Patch) 1 each TOP DAILY [facility] Last Admin: 07/27/20 07:57 Dose: 1 each Documented by: Lidocaine (Remove Lidocaine Patch) 1 each TOP BEDTIME [facility] Loperamide HCl (Loperamide 2 Mg Capsule) 4 mg PO NOW ONE Stop: 07/26/20 10:13 Last Admin: 07/26/20 10:25 Dose: 2 mg Documented by: Loperamide HCl (Loperamide 2 Mg Capsule) 2 mg PO QID PRN PRN Reason: Diarrhea Metoclopramide HCl (Metoclopramide 10 Mg/2 Ml Inj) 10 mg IV NOW ONE Stop: 07/26/20 10:13 Last Admin: 07/26/20 10:26 Dose: 10 mg Documented by: Metoprolol Succinate (Metoprolol Er 25 Mg Tablet) 75 mg PO DAILY [facility] Last Admin: 07/27/20 07:58 Dose: 75 mg Documented by: Mycophenolate Mofetil (Mycophenolate Mofetil 500 Mg Tablet) 500 mg PO BID [facility] Last Admin: 07/26/20 15:37 Dose: Not Given Documented by: Mycophenolate Mofetil (Mycophenolate Mofetil 500 Mg Tablet) 500 mg PO 1530,2300 [facility] Stop: 07/26/20 23:59 Last Admin: 07/26/20 22:37 Dose: 500 mg Documented by: Mycophenolate Mofetil (Mycophenolate Mofetil 500 Mg Tablet) 500 mg PO BID [facility] Last Admin: 07/27/20 08:00 Dose: 500 mg Documented by: Naloxone HCl (Naloxone 0.4 Mg/Ml Vial) 0.2 mg IV Q2MIN PRN PRN Reason: Opiate Reversal Cyclosporine Modified 25mg Capsule 1 each PO BID [facility] Last Admin: 07/27/20 08:00 Dose: 1 each Documented by: Ondansetron HCl (Ondansetron 4 Mg/2 Ml Inj) 4 mg IV NOW ONE Stop: 07/26/20 06:32 Last Admin: 07/26/20 06:38 Dose: 4 mg Documented by: Ondansetron HCl (Ondansetron 4 Mg/2 Ml Inj) 4 mg IV NOW ONE Stop: 07/26/20 07:55 Last Admin: 07/26/20 08:06 Dose: 4 mg Documented by: Ondansetron HCl (Ondansetron 4 Mg Odt) 4 mg PO QID PRN PRN Reason: Nausea And Vomiting Last Admin: 07/26/20 14:34 Dose: 4 mg Documented by: Pantoprazole Sodium (Pantoprazole 40 Mg Vial) 40 mg IV NOW ONE Stop: 07/26/20 06:32 Last Admin: 07/26/20 06:38 Dose: 40 mg Documented by: Pantoprazole Sodium (Pantoprazole 40 Mg Tablet) 40 mg PO 0700 [facility] Last Admin: 07/27/20 06:38 Dose: 40 mg Documented by: Potassium Chloride (Potassium Chloride 20 Meq Tab) 40 meq PO NOW ONE Stop: 07/27/20 07:31 Last Admin: 07/27/20 07:53 Dose: 40 meq Documented by: Pyridoxine HCl (Pyridoxine (Vitamin B6) 50 Mg Tablet) 100 mg PO DAILY [facility] Last Admin: 07/27/20 08:00 Dose: 100 mg Documented by: Quetiapine Fumarate (Quetiapine 25 Mg Tablet) 25 mg PO BEDTIME [facility] Last Admin: 07/26/20 21:09 Dose: 25 mg Documented by: Rifaximin (Rifaximin 550 Mg Tablet) 550 mg PO BID [facility] Last Admin: 07/26/20 15:38 Dose: Not Given Documented by: Rifaximin (Rifaximin 550 Mg Tablet) 550 mg PO BID [facility] Last Admin: 07/27/20 08:00 Dose: 550 mg Documented by: Ursodiol (Ursodiol 300 Mg Capsule) 300 mg PO BID [facility] Last Admin: 07/27/20 08:01 Dose: 300 mg Documented by: Vitamin B Complex/Vit C/Folic Acid (Nephro-Ramila Rx Tablet) 1 tab PO DAILY [facility] Last Admin: 07/27/20 08:01 Dose: 1 tab Documented by: Vital Signs Vital signs: Vital Signs - 8 hr 07/26/20 06:08 07/26/20 08:03 07/26/20 08:06 Temperature 98.7 F Pulse Rate 76 70 70 Respiratory Rate 17 Blood Pressure 182/92 H 153/99 H Pulse Oximetry 94 91 98 07/26/20 08:29 07/26/20 08:30 07/26/20 08:31 Temperature Pulse Rate 81 69 71 Respiratory Rate Blood Pressure 149/92 H 141/104 H Pulse Oximetry 97 97 94 07/26/20 08:38 Temperature Pulse Rate Respiratory Rate 18 Blood Pressure Pulse Oximetry <Wanda Tang MD - Last Filed: 07/26/20 10:19> Orders Ordered: Discontinued Medications Allopurinol (Allopurinol 100 Mg Tablet) 100 mg PO DAILY [facility] Last Admin: 07/27/20 07:55 Dose: 100 mg Documented by: Cyclobenzaprine HCl (Cyclobenzaprine 10 Mg Tablet) 10 mg PO BEDTIME PRN PRN Reason: Spasms Diphenhydramine HCl (Diphenhydramine 25 Mg Tablet) 25 mg PO NOW ONE Stop: 07/27/20 01:01 Last Admin: 07/27/20 01:46 Dose: 25 mg Documented by: Duloxetine HCl (Duloxetine 20 Mg Capsule) 20 mg PO DAILY [facility] Last Admin: 07/27/20 07:55 Dose: 20 mg Documented by: Fentanyl (Fentanyl 25 Mcg/Patch) 25 mcg TOP Q72H [facility] Last Admin: 07/26/20 14:33 Dose: 25 mcg Documented by: Furosemide (Furosemide 20 Mg Tablet) 20 mg PO DAILY [facility] Last Admin: 07/27/20 07:56 Dose: 20 mg Documented by: Gabapentin (Gabapentin 300 Mg Capsule) 300 mg PO BID [facility] Last Admin: 07/27/20 07:56 Dose: 300 mg Documented by: Hydromorphone HCl (Hydromorphone 1 Mg Inj) 1 mg IV NOW ONE Stop: 07/26/20 06:43 Last Admin: 07/26/20 06:57 Dose: 1 mg Documented by: Hydromorphone HCl (Hydromorphone 0.5 Mg Inj) 0.5 mg IV Q15MIN PRN PRN Reason: Pain, Last Admin: 07/26/20 07:42 Dose: 0.5 mg Documented by: Hydromorphone HCl (Hydromorphone 1 Mg Inj) 1 mg IV NOW ONE Stop: 07/26/20 07:57 Last Admin: 07/26/20 08:06 Dose: 1 mg Documented by: Hydromorphone HCl (Hydromorphone 1 Mg Inj) 1 mg IV NOW ONE Stop: 07/26/20 09:25 Last Admin: 07/26/20 09:34 Dose: 1 mg Documented by: Hydromorphone HCl (Hydromorphone 1 Mg Inj) 1 mg IV NOW ONE Stop: 07/26/20 10:47 Last Admin: 07/26/20 11:18 Dose: 1 mg Documented by: Hydromorphone HCl (Hydromorphone 2 Mg Tablet) 2 mg PO Q4HR PRN PRN Reason: Pain, Severe (7-10) Last Admin: 07/27/20 08:01 Dose: 2 mg Documented by: Hydromorphone HCl (Hydromorphone 1 Mg Inj) 1 mg IV Q3H PRN PRN Reason: Breakthrough Pain Last Admin: 07/27/20 02:01 Dose: 1 mg Documented by: Sodium Chloride (Normal Saline 0.9%) 1,000 mls @ 1,000 mls/hr IV CONT [facility] Last Admin: 07/27/20 00:49 Dose: 100 mls/hr Documented by: Sodium Chloride (Normal Saline 0.9%) 2,721.54 mls @ 907.18 mls/hr 30 ml/kg infuse over 3 hr (2721.54 ml) IV NOW ONE Stop: 07/26/20 10:55 Last Infusion: 07/26/20 11:32 Dose: Infused Documented by: Magnesium Sulfate (Magnesium Sulfate) 2 gm in 50 mls @ 25 mls/hr IV NOW ONE Stop: 07/27/20 09:29 Last Admin: 07/27/20 07:52 Dose: 25 mls/hr Documented by: Influenza Virus Vaccine (Influenza Vaccine 0.5 Ml Syringe) 0.5 ml IM .ONCE ONE Stop: 07/27/20 09:01 Last Admin: 07/27/20 07:56 Dose: 0.5 ml Documented by: Ketorolac Tromethamine (Ketorolac 60 Mg/2 Ml Vial) 15 mg IV NOW ONE Stop: 07/26/20 06:43 Last Admin: 07/26/20 06:57 Dose: 15 mg Documented by: Lidocaine (Lidocaine Patch 1 Each Adh..Patch) 1 each TOP DAILY [facility] Last Admin: 07/27/20 07:57 Dose: 1 each Documented by: Lidocaine (Remove Lidocaine Patch) 1 each TOP BEDTIME [facility] Loperamide HCl (Loperamide 2 Mg Capsule) 4 mg PO NOW ONE Stop: 07/26/20 10:13 Last Admin: 07/26/20 10:25 Dose: 2 mg Documented by: Loperamide HCl (Loperamide 2 Mg Capsule) 2 mg PO QID PRN PRN Reason: Diarrhea Metoclopramide HCl (Metoclopramide 10 Mg/2 Ml Inj) 10 mg IV NOW ONE Stop: 07/26/20 10:13 Last Admin: 07/26/20 10:26 Dose: 10 mg Documented by: Metoprolol Succinate (Metoprolol Er 25 Mg Tablet) 75 mg PO DAILY [facility] Last Admin: 07/27/20 07:58 Dose: 75 mg Documented by: Mycophenolate Mofetil (Mycophenolate Mofetil 500 Mg Tablet) 500 mg PO BID [facility] Last Admin: 07/26/20 15:37 Dose: Not Given Documented by: Mycophenolate Mofetil (Mycophenolate Mofetil 500 Mg Tablet) 500 mg PO 1530,2300 [facility] Stop: 07/26/20 23:59 Last Admin: 07/26/20 22:37 Dose: 500 mg Documented by: Mycophenolate Mofetil (Mycophenolate Mofetil 500 Mg Tablet) 500 mg PO BID [facility] Last Admin: 07/27/20 08:00 Dose: 500 mg Documented by: Naloxone HCl (Naloxone 0.4 Mg/Ml Vial) 0.2 mg IV Q2MIN PRN PRN Reason: Opiate Reversal Cyclosporine Modified 25mg Capsule 1 each PO BID [facility] Last Admin: 07/27/20 08:00 Dose: 1 each Documented by: Ondansetron HCl (Ondansetron 4 Mg/2 Ml Inj) 4 mg IV NOW ONE Stop: 07/26/20 06:32 Last Admin: 07/26/20 06:38 Dose: 4 mg Documented by: Ondansetron HCl (Ondansetron 4 Mg/2 Ml Inj) 4 mg IV NOW ONE Stop: 07/26/20 07:55 Last Admin: 07/26/20 08:06 Dose: 4 mg Documented by: Ondansetron HCl (Ondansetron 4 Mg Odt) 4 mg PO QID PRN PRN Reason: Nausea And Vomiting Last Admin: 07/26/20 14:34 Dose: 4 mg Documented by: Pantoprazole Sodium (Pantoprazole 40 Mg Vial) 40 mg IV NOW ONE Stop: 07/26/20 06:32 Last Admin: 07/26/20 06:38 Dose: 40 mg Documented by: Pantoprazole Sodium (Pantoprazole 40 Mg Tablet) 40 mg PO 0700 [facility] Last Admin: 07/27/20 06:38 Dose: 40 mg Documented by: Potassium Chloride (Potassium Chloride 20 Meq Tab) 40 meq PO NOW ONE Stop: 07/27/20 07:31 Last Admin: 07/27/20 07:53 Dose: 40 meq Documented by: Pyridoxine HCl (Pyridoxine (Vitamin B6) 50 Mg Tablet) 100 mg PO DAILY [facility] Last Admin: 07/27/20 08:00 Dose: 100 mg Documented by: Quetiapine Fumarate (Quetiapine 25 Mg Tablet) 25 mg PO BEDTIME [facility] Last Admin: 07/26/20 21:09 Dose: 25 mg Documented by: Rifaximin (Rifaximin 550 Mg Tablet) 550 mg PO BID [facility] Last Admin: 07/26/20 15:38 Dose: Not Given Documented by: Rifaximin (Rifaximin 550 Mg Tablet) 550 mg PO BID [facility] Last Admin: 07/27/20 08:00 Dose: 550 mg Documented by: Ursodiol (Ursodiol 300 Mg Capsule) 300 mg PO BID [facility] Last Admin: 07/27/20 08:01 Dose: 300 mg Documented by: Vitamin B Complex/Vit C/Folic Acid (Nephro-Ramila Rx Tablet) 1 tab PO DAILY [facility] Last Admin: 07/27/20 08:01 Dose: 1 tab Documented by: Vital Signs Vital signs: Vital Signs - 8 hr 07/26/20 06:08 07/26/20 08:03 07/26/20 08:06 Temperature 98.7 F Pulse Rate 76 70 70 Respiratory Rate 17 Blood Pressure 182/92 H 153/99 H Pulse Oximetry 94 91 98 07/26/20 08:29 07/26/20 08:30 07/26/20 08:31 Temperature Pulse Rate 81 69 71 Respiratory Rate Blood Pressure 149/92 H 141/104 H Pulse Oximetry 97 97 94 07/26/20 08:38 Temperature Pulse Rate Respiratory Rate 18 Blood Pressure Pulse Oximetry MDM - Nausea/Vomiting/Diarrhea <Mei Akhtar, - Last Filed: 07/30/20 07:10> Lab Data Result diagrams: 07/27/20 05:00 07/27/20 05:00 Labs: Lab Results 07/26/20 07/26/20 07/26/20 Range/Units 06:05 06:35 06:35 WBC 12.1 H (4.5-11.0) X10^3/uL RBC 4.12 L (4.5-5.9) X10^6/uL Hgb 13.4 L (13.5-17.5) g/dL Hct 40.6 L (41-53) % MCV 98.4 (80-100) fL MCH 32.6 (26-34) PG MCHC 33.1 (30-36) % RDW 17.1 H (11.6-14.8) % Plt Count 139 L (150-400) X10^3/uL Neut % (Auto) 61.2 (50-75) % Lymph % (Auto) 32.8 (25-40) % [facility] % (Auto) 5.5 (3-14) % Eos % (Auto) 0.1 L (2-4) % Baso % (Auto) 0.4 (0-2) % Neut # (Auto) 7400 H (7458-9434) /uL Lymph # (Auto) 4000 (5536-9741) /uL [facility] # (Auto) 700 (0-900) /uL Eos # (Auto) 0 (0-450) /uL Baso # (Auto) 0 (0-100) /uL Sodium 139 (137-145) mmol/L Potassium 3.4 (3.4-5.1) mmol/L Chloride 104 (98-107) mmol/L Carbon Dioxide 24 (22-32) mmol/L BUN 30 H (9-20) mg/dL Creatinine 1.79 H (0.66-1.25) mg/dL Estimated GFR 39.5 L (>60) mL/min BUN/Creatinine Ratio 16.8 (6-22) Glucose 107 H (70-100) mg/dL Lactate (0.7-2.1) mmol/L Calcium 9.1 (8.4-10.2) mg/dL Total Bilirubin 1.7 H (0.2-1.3) mg/dL AST 70 H (17-59) IU/L ALT 33 (<50) IU/L Alkaline Phosphatase 380 H (38-126) U/L Total Protein 7.1 (6.3-8.2) g/dL Albumin 3.6 (3.5-5.0) g/dL Globulin 3.5 (1.7-4.1) g/dL Albumin/Globulin Ratio 1.0 (1.0-2.8) Lipase 22 L (23-300) U/L Urine Color Urine Appearance Urine pH (4.5-8.0) Ur Specific [place] (1.000-1.035) Urine Protein (Negative) Urine Glucose (UA) (Negative) g/dL Urine Ketones (NEGATIVE) Urine Occult Blood (Negative) Urine Nitrate (Negative) Urine Bilirubin (NEGATIVE) Urine Urobilinogen (0.2) E.U./dL Ur Leukocyte Esterase (NEGATIVE) Urine RBC (0-5/HPF) Urine WBC (0-5/HPF) Urine Bacteria (None) Ur Culture Indicated? Stl C. cayetanensis PCR (Not Detect) Stool Rotavirus (PCR) (Not Detect) Stool Adenovirus (PCR) (Not Detect) Stool Astrovirus (PCR) (Not Detect) Stool Cryptosporidium PCR (Not Detect) Stl E.coli Shiga Tox PCR (Not Detect) St Sh/Enteroin Ecoli PCR (Not Detect) Stool E coli O157 PCR (Not Detect) Stl Enterotoxigenic E PCR (Not Detect) Stool EPEC (PCR) (Not Detect) Stl E. histolytica PCR (Not Detect) Stool Giardia Lamblia PCR (Not Detect) Stool Sapovirus (PCR) (Not Detect) Stl P. shigelloides PCR (Not Detect) St Y.enterocolitica PCR (Not Detect) Stool Vibrio (PCR) (Not Detect) Stl Vibrio cholerae PCR (Not Detect) Stl Enteroaggr Ecoli PCR (Not Detect) Stl Norovirus GI/GII PCR (Not Detect) Campylobacter (PCR) (Not Detect) C. difficile Tox (PCR) (Not Detect) COVID-19 PCR Negative (Negative) Salmonella (PCR) (Not Detect) 07/26/20 07/26/20 07/26/20 Range/Units 06:35 06:50 08:50 WBC (4.5-11.0) X10^3/uL RBC (4.5-5.9) X10^6/uL Hgb (13.5-17.5) g/dL Hct (41-53) % MCV (80-100) fL MCH (26-34) PG MCHC (30-36) % RDW (11.6-14.8) % Plt Count (150-400) X10^3/uL Neut % (Auto) (50-75) % Lymph % (Auto) (25-40) % [facility] % (Auto) (3-14) % Eos % (Auto) (2-4) % Baso % (Auto) (0-2) % Neut # (Auto) (3418-0819) /uL Lymph # (Auto) (4578-5937) /uL [facility] # (Auto) (0-900) /uL Eos # (Auto) (0-450) /uL Baso # (Auto) (0-100) /uL Sodium (137-145) mmol/L Potassium (3.4-5.1) mmol/L Chloride (98-107) mmol/L Carbon Dioxide (22-32) mmol/L BUN (9-20) mg/dL Creatinine (0.66-1.25) mg/dL Estimated GFR (>60) mL/min BUN/Creatinine Ratio (6-22) Glucose (70-100) mg/dL Lactate 4.6 H* 2.0 (0.7-2.1) mmol/L Calcium (8.4-10.2) mg/dL Total Bilirubin (0.2-1.3) mg/dL AST (17-59) IU/L ALT (<50) IU/L Alkaline Phosphatase (38-126) U/L Total Protein (6.3-8.2) g/dL Albumin (3.5-5.0) g/dL Globulin (1.7-4.1) g/dL Albumin/Globulin Ratio (1.0-2.8) Lipase (23-300) U/L Urine Color Urine Appearance Urine pH (4.5-8.0) Ur Specific [place] (1.000-1.035) Urine Protein (Negative) Urine Glucose (UA) (Negative) g/dL Urine Ketones (NEGATIVE) Urine Occult Blood (Negative) Urine Nitrate (Negative) Urine Bilirubin (NEGATIVE) Urine Urobilinogen (0.2) E.U./dL Ur Leukocyte Esterase (NEGATIVE) Urine RBC (0-5/HPF) Urine WBC (0-5/HPF) Urine Bacteria (None) Ur Culture Indicated? Stl C. cayetanensis PCR Not detected (Not Detect) Stool Rotavirus (PCR) Not detected (Not Detect) Stool Adenovirus (PCR) Not detected (Not Detect) Stool Astrovirus (PCR) Not detected (Not Detect) Stool Cryptosporidium PCR Not detected (Not Detect) Stl E.coli Shiga Tox PCR Not detected (Not Detect) St Sh/Enteroin Ecoli PCR Not detected (Not Detect) Stool E coli O157 PCR Not detected (Not Detect) Stl Enterotoxigenic E PCR Not detected (Not Detect) Stool EPEC (PCR) Not detected (Not Detect) Stl E. histolytica PCR Not detected (Not Detect) Stool Giardia Lamblia PCR Not detected (Not Detect) Stool Sapovirus (PCR) Not detected (Not Detect) Stl P. shigelloides PCR Not detected (Not Detect) St Y.enterocolitica PCR Not detected (Not Detect) Stool Vibrio (PCR) Not detected (Not Detect) Stl Vibrio cholerae PCR Not detected (Not Detect) Stl Enteroaggr Ecoli PCR Not detected (Not Detect) Stl Norovirus GI/GII PCR Not detected (Not Detect) Campylobacter (PCR) Not detected (Not Detect) C. difficile Tox (PCR) Not detected (Not Detect) COVID-19 PCR (Negative) Salmonella (PCR) Not detected (Not Detect) 07/26/20 Range/Units 09:20 WBC (4.5-11.0) X10^3/uL RBC (4.5-5.9) X10^6/uL Hgb (13.5-17.5) g/dL Hct (41-53) % MCV (80-100) fL MCH (26-34) PG MCHC (30-36) % RDW (11.6-14.8) % Plt Count (150-400) X10^3/uL Neut % (Auto) (50-75) % Lymph % (Auto) (25-40) % [facility] % (Auto) (3-14) % Eos % (Auto) (2-4) % Baso % (Auto) (0-2) % Neut # (Auto) (1574-6706) /uL Lymph # (Auto) (2669-1557) /uL [facility] [place] # (Auto) (0-900) /uL Eos # (Auto) (0-450) /uL Baso # (Auto) (0-100) /uL Sodium (137-145) mmol/L Potassium (3.4-5.1) mmol/L Chloride (98-107) mmol/L Carbon Dioxide (22-32) mmol/L BUN (9-20) mg/dL Creatinine (0.66-1.25) mg/dL Estimated GFR (>60) mL/min BUN/Creatinine Ratio (6-22) Glucose (70-100) mg/dL Lactate (0.7-2.1) mmol/L Calcium (8.4-10.2) mg/dL Total Bilirubin (0.2-1.3) mg/dL AST (17-59) IU/L ALT (<50) IU/L Alkaline Phosphatase (38-126) U/L Total Protein (6.3-8.2) g/dL Albumin (3.5-5.0) g/dL Globulin (1.7-4.1) g/dL Albumin/Globulin Ratio (1.0-2.8) Lipase (23-300) U/L Urine Color Yellow Urine Appearance Clear Urine pH 6.0 (4.5-8.0) Ur Specific [place] 1.010 (1.000-1.035) Urine Protein 2+ H (Negative) Urine Glucose (UA) Negative (Negative) g/dL Urine Ketones Negative (NEGATIVE) Urine Occult Blood 1+ H (Negative) Urine Nitrate Negative (Negative) Urine Bilirubin Negative (NEGATIVE) Urine Urobilinogen 0.2 (0.2) E.U./dL Ur Leukocyte Esterase Negative (NEGATIVE) Urine RBC 1-5/hpf (0-5/HPF) Urine WBC None seen (0-5/HPF) Urine Bacteria None seen (None) Ur Culture Indicated? Cult not indicated Stl C. cayetanensis PCR (Not Detect) Stool Rotavirus (PCR) (Not Detect) Stool Adenovirus (PCR) (Not Detect) Stool Astrovirus (PCR) (Not Detect) Stool Cryptosporidium PCR (Not Detect) Stl E.coli Shiga Tox PCR (Not Detect) St Sh/Enteroin Ecoli PCR (Not Detect) Stool E coli O157 PCR (Not Detect) Stl Enterotoxigenic E PCR (Not Detect) Stool EPEC (PCR) (Not Detect) Stl E. histolytica PCR (Not Detect) Stool Giardia Lamblia PCR (Not Detect) Stool Sapovirus (PCR) (Not Detect) Stl P. shigelloides PCR (Not Detect) St Y.enterocolitica PCR (Not Detect) Stool Vibrio (PCR) (Not Detect) Stl Vibrio cholerae PCR (Not Detect) Stl Enteroaggr Ecoli PCR (Not Detect) Stl Norovirus GI/GII PCR (Not Detect) Campylobacter (PCR) (Not Detect) C. difficile Tox (PCR) (Not Detect) COVID-19 PCR (Negative) Salmonella (PCR) (Not Detect) Urine Dip Bedside Urine Glucose Negative Bedside Urine Bilirubin - Negative Bedside Urine Ketone - Negative Urine Specific [place] 1.020 Bedside Urine Occult Blood + Bedside Urine pH 6.0 Bedside Urine Protein + 30 Bedside Urine Urobilinogen - Negative Bedside Urine Nitrite - Negative Bedside Urine Leukocytes - Negative Esterase MDM Narrative Medical decision making narrative: Signed out to Dr. Tang for further medical management blood work and imaging pending <Wanda Tang MD - Last Filed: 07/26/20 10:19> Medical Records Attestation: I reviewed the patient's medical records. Lab Data Attestation: I reviewed the patient's lab results. Labs: Lab Results 07/26/20 07/26/20 07/26/20 Range/Units 06:05 06:35 06:35 WBC 12.1 H (4.5-11.0) X10^3/uL RBC 4.12 L (4.5-5.9) X10^6/uL Hgb 13.4 L (13.5-17.5) g/dL Hct 40.6 L (41-53) % MCV 98.4 (80-100) fL MCH 32.6 (26-34) PG MCHC 33.1 (30-36) % RDW 17.1 H (11.6-14.8) % Plt Count 139 L (150-400) X10^3/uL Neut % (Auto) 61.2 (50-75) % Lymph % (Auto) 32.8 (25-40) % [facility] % (Auto) 5.5 (3-14) % Eos % (Auto) 0.1 L (2-4) % Baso % (Auto) 0.4 (0-2) % Neut # (Auto) 7400 H (4576-2818) /uL Lymph # (Auto) 4000 (4895-9536) /uL [facility] # (Auto) 700 (0-900) /uL Eos # (Auto) 0 (0-450) /uL Baso # (Auto) 0 (0-100) /uL Sodium 139 (137-145) mmol/L Potassium 3.4 (3.4-5.1) mmol/L Chloride 104 (98-107) mmol/L Carbon Dioxide 24 (22-32) mmol/L BUN 30 H (9-20) mg/dL Creatinine 1.79 H (0.66-1.25) mg/dL Estimated GFR 39.5 L (>60) mL/min BUN/Creatinine Ratio 16.8 (6-22) Glucose 107 H (70-100) mg/dL Lactate (0.7-2.1) mmol/L Calcium 9.1 (8.4-10.2) mg/dL Total Bilirubin 1.7 H (0.2-1.3) mg/dL AST 70 H (17-59) IU/L ALT 33 (<50) IU/L Alkaline Phosphatase 380 H (38-126) U/L Total Protein 7.1 (6.3-8.2) g/dL Albumin 3.6 (3.5-5.0) g/dL Globulin 3.5 (1.7-4.1) g/dL Albumin/Globulin Ratio 1.0 (1.0-2.8) Lipase 22 L (23-300) U/L Urine Color Urine Appearance Urine pH (4.5-8.0) Ur Specific [place] (1.000-1.035) Urine Protein (Negative) Urine Glucose (UA) (Negative) g/dL Urine Ketones (NEGATIVE) Urine Occult Blood (Negative) Urine Nitrate (Negative) Urine Bilirubin (NEGATIVE) Urine Urobilinogen (0.2) E.U./dL Ur Leukocyte Esterase (NEGATIVE) Urine RBC (0-5/HPF) Urine WBC (0-5/HPF) Urine Bacteria (None) Ur Culture Indicated? Stl C. cayetanensis PCR (Not Detect) Stool Rotavirus (PCR) (Not Detect) Stool Adenovirus (PCR) (Not Detect) Stool Astrovirus (PCR) (Not Detect) Stool Cryptosporidium PCR (Not Detect) Stl E.coli Shiga Tox PCR (Not Detect) St Sh/Enteroin Ecoli PCR (Not Detect) Stool E coli O157 PCR (Not Detect) Stl Enterotoxigenic E PCR (Not Detect) Stool EPEC (PCR) (Not Detect) Stl E. histolytica PCR (Not Detect) Stool Giardia Lamblia PCR (Not Detect) Stool Sapovirus (PCR) (Not Detect) Stl P. shigelloides PCR (Not Detect) St Y.enterocolitica PCR (Not Detect) Stool Vibrio (PCR) (Not Detect) Stl Vibrio cholerae PCR (Not Detect) Stl Enteroaggr Ecoli PCR (Not Detect) Stl Norovirus GI/GII PCR (Not Detect) Campylobacter (PCR) (Not Detect) C. difficile Tox (PCR) (Not Detect) COVID-19 PCR Negative (Negative) Salmonella (PCR) (Not Detect) 07/26/20 07/26/20 07/26/20 Range/Units 06:35 06:50 08:50 WBC (4.5-11.0) X10^3/uL RBC (4.5-5.9) X10^6/uL Hgb (13.5-17.5) g/dL Hct (41-53) % MCV (80-100) fL MCH (26-34) PG MCHC (30-36) % RDW (11.6-14.8) % Plt Count (150-400) X10^3/uL Neut % (Auto) (50-75) % Lymph % (Auto) (25-40) % [facility] % (Auto) (3-14) % Eos % (Auto) (2-4) % Baso % (Auto) (0-2) % Neut # (Auto) (3841-1150) /uL Lymph # (Auto) (0836-7787) /uL [facility] # (Auto) (0-900) /uL Eos # (Auto) (0-450) /uL Baso # (Auto) (0-100) /uL Sodium (137-145) mmol/L Potassium (3.4-5.1) mmol/L Chloride (98-107) mmol/L Carbon Dioxide (22-32) mmol/L BUN (9-20) mg/dL Creatinine (0.66-1.25) mg/dL Estimated GFR (>60) mL/min BUN/Creatinine Ratio (6-22) Glucose (70-100) mg/dL Lactate 4.6 H* 2.0 (0.7-2.1) mmol/L Calcium (8.4-10.2) mg/dL Total Bilirubin (0.2-1.3) mg/dL AST (17-59) IU/L ALT (<50) IU/L Alkaline Phosphatase (38-126) U/L Total Protein (6.3-8.2) g/dL Albumin (3.5-5.0) g/dL Globulin (1.7-4.1) g/dL Albumin/Globulin Ratio (1.0-2.8) Lipase (23-300) U/L Urine Color Urine Appearance Urine pH (4.5-8.0) Ur Specific [place] (1.000-1.035) Urine Protein (Negative) Urine Glucose (UA) (Negative) g/dL Urine Ketones (NEGATIVE) Urine Occult Blood (Negative) Urine Nitrate (Negative) Urine Bilirubin (NEGATIVE) Urine Urobilinogen (0.2) E.U./dL Ur Leukocyte Esterase (NEGATIVE) Urine RBC (0-5/HPF) Urine WBC (0-5/HPF) Urine Bacteria (None) Ur Culture Indicated? Stl C. cayetanensis PCR Not detected (Not Detect) Stool Rotavirus (PCR) Not detected (Not Detect) Stool Adenovirus (PCR) Not detected (Not Detect) Stool Astrovirus (PCR) Not detected (Not Detect) Stool Cryptosporidium PCR Not detected (Not Detect) Stl E.coli Shiga Tox PCR Not detected (Not Detect) St Sh/Enteroin Ecoli PCR Not detected (Not Detect) Stool E coli O157 PCR Not detected (Not Detect) Stl Enterotoxigenic E PCR Not detected (Not Detect) Stool EPEC (PCR) Not detected (Not Detect) Stl E. histolytica PCR Not detected (Not Detect) Stool Giardia Lamblia PCR Not detected (Not Detect) Stool Sapovirus (PCR) Not detected (Not Detect) Stl P. shigelloides PCR Not detected (Not Detect) St Y.enterocolitica PCR Not detected (Not Detect) Stool Vibrio (PCR) Not detected (Not Detect) Stl Vibrio cholerae PCR Not detected (Not Detect) Stl Enteroaggr Ecoli PCR Not detected (Not Detect) Stl Norovirus GI/GII PCR Not detected (Not Detect) Campylobacter (PCR) Not detected (Not Detect) C. difficile Tox (PCR) Not detected (Not Detect) COVID-19 PCR (Negative) Salmonella (PCR) Not detected (Not Detect) 07/26/20 Range/Units 09:20 WBC (4.5-11.0) X10^3/uL RBC (4.5-5.9) X10^6/uL Hgb (13.5-17.5) g/dL Hct (41-53) % MCV (80-100) fL MCH (26-34) PG MCHC (30-36) % RDW (11.6-14.8) % Plt Count (150-400) X10^3/uL Neut % (Auto) (50-75) % Lymph % (Auto) (25-40) % [facility] % (Auto) (3-14) % Eos % (Auto) (2-4) % Baso % (Auto) (0-2) % Neut # (Auto) (5067-5595) /uL Lymph # (Auto) (6066-6023) /uL [facility] [place] # (Auto) (0-900) /uL Eos # (Auto) (0-450) /uL Baso # (Auto) (0-100) /uL Sodium (137-145) mmol/L Potassium (3.4-5.1) mmol/L Chloride (98-107) mmol/L Carbon Dioxide (22-32) mmol/L BUN (9-20) mg/dL Creatinine (0.66-1.25) mg/dL Estimated GFR (>60) mL/min BUN/Creatinine Ratio (6-22) Glucose (70-100) mg/dL Lactate (0.7-2.1) mmol/L Calcium (8.4-10.2) mg/dL Total Bilirubin (0.2-1.3) mg/dL AST (17-59) IU/L ALT (<50) IU/L Alkaline Phosphatase (38-126) U/L Total Protein (6.3-8.2) g/dL Albumin (3.5-5.0) g/dL Globulin (1.7-4.1) g/dL Albumin/Globulin Ratio (1.0-2.8) Lipase (23-300) U/L Urine Color Yellow Urine Appearance Clear Urine pH 6.0 (4.5-8.0) Ur Specific [place] 1.010 (1.000-1.035) Urine Protein 2+ H (Negative) Urine Glucose (UA) Negative (Negative) g/dL Urine Ketones Negative (NEGATIVE) Urine Occult Blood 1+ H (Negative) Urine Nitrate Negative (Negative) Urine Bilirubin Negative (NEGATIVE) Urine Urobilinogen 0.2 (0.2) E.U./dL Ur Leukocyte Esterase Negative (NEGATIVE) Urine RBC 1-5/hpf (0-5/HPF) Urine WBC None seen (0-5/HPF) Urine Bacteria None seen (None) Ur Culture Indicated? Cult not indicated Stl C. cayetanensis PCR (Not Detect) Stool Rotavirus (PCR) (Not Detect) Stool Adenovirus (PCR) (Not Detect) Stool Astrovirus (PCR) (Not Detect) Stool Cryptosporidium PCR (Not Detect) Stl E.coli Shiga Tox PCR (Not Detect) St Sh/Enteroin Ecoli PCR (Not Detect) Stool E coli O157 PCR (Not Detect) Stl Enterotoxigenic E PCR (Not Detect) Stool EPEC (PCR) (Not Detect) Stl E. histolytica PCR (Not Detect) Stool Giardia Lamblia PCR (Not Detect) Stool Sapovirus (PCR) (Not Detect) Stl P. shigelloides PCR (Not Detect) St Y.enterocolitica PCR (Not Detect) Stool Vibrio (PCR) (Not Detect) Stl Vibrio cholerae PCR (Not Detect) Stl Enteroaggr Ecoli PCR (Not Detect) Stl Norovirus GI/GII PCR (Not Detect) Campylobacter (PCR) (Not Detect) C. difficile Tox (PCR) (Not Detect) COVID-19 PCR (Negative) Salmonella (PCR) (Not Detect) Urine Dip Bedside Urine Glucose Negative Bedside Urine Bilirubin - Negative Bedside Urine Ketone - Negative Urine Specific [place] 1.020 Bedside Urine Occult Blood + Bedside Urine pH 6.0 Bedside Urine Protein + 30 Bedside Urine Urobilinogen - Negative Bedside Urine Nitrite - Negative Bedside Urine Leukocytes - Negative Esterase Imaging Data CT scan - abdomen/pelvis: Radiologist's Impression: FINDINGS: Image quality: Excellent. ABDOMEN: Lung bases: Lung bases are clear. Heart size is enlarged. Solid organs: Liver is normal in size. Diffusely heterogeneous hypodense liver parenchyma is seen which may represent attic steatosis. Gallbladder is surgically absent. Pancreas is normal in contours. Spleen is normal in size. No adrenal nodules. Kidneys are normal in size, without hydronephrosis or nephrolithiasis. Bilateral renal cortical thinning is again seen and unchanged from prior study. Peritoneum and bowel: Unenhanced bowel loops demonstrate normal wall thickness and caliber. No free fluid or air. There is a small hiatal hernia. Mild colonic diverticulosis is seen. No evidence of acute diverticulitis. Nodes and vessels: No retroperitoneal or mesenteric adenopathy by size criteria. Aorta and inferior vena cava are normal in caliber. Miscellaneous: No ventral hernias. PELVIS: Genitourinary: Bladder wall thickness is normal. Miscellaneous: No inguinal hernias or adenopathy. Bones: No suspicious bony lesions. Chronic appearing anterior wedge compression deformities involving multiple thoracic and lumbar spine vertebral bodies are again seen unchanged from prior study. Patient is status post prior right total hip arthroplasty. IMPRESSION: 1. Limited evaluation due to lack of oral and IV contrast. 2. Heterogeneously hypodense liver parenchyma which may represent hepatic steatosis with sparing. Large hepatic lesion cannot be entirely excluded, suggest clinical correlation with liver function enzyme levels. Prior cholecystectomy. 3. No bowel obstruction. No definite bowel wall thickening. No free fluid or free air. Small hiatal hernia. Colonic diverticulosis without evidence of acute diverticulitis. 4. Bilateral renal cortical thinning, unchanged from prior study. No hydronephrosis or nephrolithiasis. 5. Chronic compression deformities involving multiple thoracic and lumbar spine vertebral bodies unchanged from prior study. Dictated by: Jose Manuel Mendoza M.D. on 07/26/2020 at 8:48 Chest x-ray: Radiologist's Impression: FINDINGS: Image quality: Excellent. ABDOMEN: Lung bases: Lung bases are clear. Heart size is enlarged. Solid organs: Liver is normal in size. Diffusely heterogeneous hypodense liver parenchyma is seen which may represent attic steatosis. Gallbladder is surgically absent. Pancreas is normal in contours. Spleen is normal in size. No adrenal nodules. Kidneys are normal in size, without hydronephrosis or nephrolithiasis. Bilateral renal cortical thinning is again seen and unchanged from prior study. Peritoneum and bowel: Unenhanced bowel loops demonstrate normal wall thickness and caliber. No free fluid or air. There is a small hiatal hernia. Mild colonic diverticulosis is seen. No evidence of acute diverticulitis. Nodes and vessels: No retroperitoneal or mesenteric adenopathy by size criteria. Aorta and inferior vena cava are normal in caliber. Miscellaneous: No ventral hernias. PELVIS: Genitourinary: Bladder wall thickness is normal. Miscellaneous: No inguinal hernias or adenopathy. Bones: No suspicious bony lesions. Chronic appearing anterior wedge compression deformities involving multiple thoracic and lumbar spine vertebral bodies are again seen unchanged from prior study. Patient is status post prior right total hip arthroplasty. IMPRESSION: 1. Limited evaluation due to lack of oral and IV contrast. 2. Heterogeneously hypodense liver parenchyma which may represent hepatic steatosis with sparing. Large hepatic lesion cannot be entirely excluded, suggest clinical correlation with liver function enzyme levels. Prior cholecystectomy. 3. No bowel obstruction. No definite bowel wall thickening. No free fluid or free air. Small hiatal hernia. Colonic diverticulosis without evidence of acute diverticulitis. 4. Bilateral renal cortical thinning, unchanged from prior study. No hydronephrosis or nephrolithiasis. 5. Chronic compression deformities involving multiple thoracic and lumbar spine vertebral bodies unchanged from prior study. Dictated by: Jose Manuel Mendoza M.D. on 07/26/2020 at 8:48 MDM Narrative Medical decision making narrative: 54-year-old gentleman with a history of liver transplant on anti-rejection medication presents with vomiting and diarrhea overall weakness complains of fever last night. Initial blood work shows a slightly elevated white blood cell count. Renal function is actually somewhat improved over his baseline. Lactic acid is elevated at 4.6 and general clinical impression is that of someone who simply isn't feeling well. Will expand workup to look for additional source of infection and will begin fluid resuscitation. Blood pressure is slightly elevated, he is not tachycardic. Labs do indicate a slight increase in bilirubin as well as a slight increase in alkaline phosphatase. AST is actually improved an ALT is within normal limits. Renal function is overall improved. Stool PCR is pending as is COVID testing. He is independently examined. Chest is clear abdomen with hypoactive bowel tones diffusely mildly tender and he describes a tight pain radiating from the left shoulder to the right lower quadrant. Will add imaging including x-ray and abdominal CT. His primary care physician is Dr. Porter at [facility] follows him for his transplant Lactic acid is coming down and likely was secondary to dehydration rather than infection. No infection noted with urine, pulmonary, CT/abdomen. He still feeling nauseated. Still having diarrhea. Will give him some Imodium and try adding Reglan to his regimen so far. He is weak enough and still having so many symptoms that he would prefer hospital admission at least overnight as he does live alone. Will talk to hospitalist Discussed with Dr Austin. Will admit for observation for rehydration in the setting of persistent nausea vomiting and diarrhea Discharge Plan Departure Patient Disposition: Home Clinical Impression: Nausea and vomiting, Diarrhea, Dehydration
[2020-07-26] MEDS: SODIUM CHLORIDE 0.9% 1,000 ML 1000 ML IV (06:38)
[2020-07-26] MEDS: PANTOPRAZOLE 40 MG VIAL IV (06:38)
[2020-07-26] MEDS: ONDANSETRON 4 MG/2 ML INJ IV ×2 (06:38→08:06)
[2020-07-26 06:44] LABS: Add Manual Diff / Slide Review NO; Basophils Absolute Auto 0 /uL (0-100); Basophils Percent Auto 0.4 % (0-2); Eosinophils Absolute Auto 0 /uL (0-450); Eosinophils Percent Auto 0.1 % (2-4); Hematocrit 40.6 % (41-53); Hemoglobin 13.4 g/dL (13.5-17.5); Lymphocytes Absolute Auto 4000 /uL (1100-4500); Lymphocytes Percent Auto 32.8 % (25-40); Mean Corpuscular HGB Conc 33.1 % (30-36); Mean Corpuscular Hemoglobin 32.6 PG (26-34); Mean Corpuscular Volume 98.4 fL (80-100); Monocytes Absolute Auto 700 /uL (0-900); Monocytes Percent Auto 5.5 % (3-14); Neutrophils Absolute Auto 7400 /uL (1500-7000); Neutrophils Percent Auto 61.2 % (50-75); Platelet Count 139 X10^3/uL (150-400); Red Blood Cell Count 4.12 X10^6/uL (4.5-5.9); Red Cell Distribution Width 17.1 % (11.6-14.8); White Blood Cell Count 12.1 X10^3/uL (4.5-11.0)
[2020-07-26] MEDS: HYDROMORPHONE 1 MG INJ IV ×5 (06:57→18:04)
[2020-07-26] MEDS: KETOROLAC 60 MG/2 ML VIAL 15 MG IV (06:57)
[2020-07-26 07:00] LABS: COVID19 -Nasal RAPID Negative (Negative)
[2020-07-26 07:09] LABS: Alanine Aminotransferase 33 IU/L (<50); Albumin 3.6 g/dL (3.5-5.0); Alkaline Phosphatase 380 U/L (38-126); Aspartate Aminotransferase 70 IU/L (17-59); BUN Creatinine Ratio 16.8 (6-22); Bilirubin Total 1.7 mg/dL (0.2-1.3); Blood Urea Nitrogen 30 mg/dL (9-20); Calcium 9.1 mg/dL (8.4-10.2); Carbon Dioxide 24 mmol/L (22-32); Chloride 104 mmol/L (98-107); Estimated Glomerular Filt Rate 39.5 mL/min (>60); Globulin 3.5 g/dL (1.7-4.1); Glucose 107 mg/dL (70-100); HEMOLYSIS < 15 (0-50); Lipase 22 U/L (23-300); Potassium 3.4 mmol/L (3.4-5.1); Sodium 139 mmol/L (137-145); Total Protein 7.1 g/dL (6.3-8.2)
[2020-07-26 07:33] LABS: Lactate (Lactic Acid) 4.6 mmol/L (0.7-2.1)
[2020-07-26] MEDS: HYDROMORPHONE 0.5 MG INJ IV (07:42)
--- NOTE | 2020-07-26 07:54 | DI.CT.S_ITS ---
PROCEDURE: CT ABDOMEN PELVIS WO CON INDICATIONS: abd pain and fever. GFR=39 TECHNIQUE: Noncontrast 5 mm thick sections acquired from the diaphragms to the symphysis. 5 mm coronal and sagittal reformats were then performed. For radiation dose reduction, the following was used: automated exposure control, adjustment of mA and/or kV according to patient size. COMPARISON: [facility], CT, CT ABDOMEN PELVIS WO CON, 05/13/2020, 22:37. FINDINGS: Image quality: Excellent. ABDOMEN: Lung bases: Lung bases are clear. Heart size is enlarged. Solid organs: Liver is normal in size. Diffusely heterogeneous hypodense liver parenchyma is seen which may represent attic steatosis. Gallbladder is surgically absent. Pancreas is normal in contours. Spleen is normal in size. No adrenal nodules. Kidneys are normal in size, without hydronephrosis or nephrolithiasis. Bilateral renal cortical thinning is again seen and unchanged from prior study. Peritoneum and bowel: Unenhanced bowel loops demonstrate normal wall thickness and caliber. No free fluid or air. There is a small hiatal hernia. Mild colonic diverticulosis is seen. No evidence of acute diverticulitis. Nodes and vessels: No retroperitoneal or mesenteric adenopathy by size criteria. Aorta and inferior vena cava are normal in caliber. Miscellaneous: No ventral hernias. PELVIS: Genitourinary: Bladder wall thickness is normal. Miscellaneous: No inguinal hernias or adenopathy. Bones: No suspicious bony lesions. Chronic appearing anterior wedge compression deformities involving multiple thoracic and lumbar spine vertebral bodies are again seen unchanged from prior study. Patient is status post prior right total hip arthroplasty. IMPRESSION: 1. Limited evaluation due to lack of oral and IV contrast. 2. Heterogeneously hypodense liver parenchyma which may represent hepatic steatosis with sparing. Large hepatic lesion cannot be entirely excluded, suggest clinical correlation with liver function enzyme levels. Prior cholecystectomy. 3. No bowel obstruction. No definite bowel wall thickening. No free fluid or free air. Small hiatal hernia. Colonic diverticulosis without evidence of acute diverticulitis. 4. Bilateral renal cortical thinning, unchanged from prior study. No hydronephrosis or nephrolithiasis. 5. Chronic compression deformities involving multiple thoracic and lumbar spine vertebral bodies unchanged from prior study. Dictated by: Jose Manuel Mendoza M.D. on 07/26/2020 at 8:48 Approved by: Jose Manuel Mendoza M.D. on 07/26/2020 at 8:53
--- NOTE | 2020-07-26 07:54 | DI.RAD.S_ITS ---
PROCEDURE: XR CHEST 1V INDICATIONS: fever TECHNIQUE: One view of the chest was acquired. COMPARISON: [facility], , CHEST 1 VIEW, 04/23/2015, 22:03. FINDINGS: Surgical changes and devices: Fusion hardware in lower cervical spine is again seen. There is prior left shoulder arthroplasty.. Lungs and pleura: Lungs are clear. No pleural effusions or pneumothorax. Mediastinum: Mediastinal contours appear normal. Heart size is normal. Bones and chest wall: No suspicious bony lesions. Overlying soft tissues appear unremarkable. IMPRESSION: No acute cardiopulmonary pathology. Dictated by: Jose Manuel Mendoza M.D. on 07/26/2020 at 8:41 Approved by: Jose Manuel Mendoza M.D. on 07/26/2020 at 8:41
[2020-07-26] MEDS: SODIUM CHLORIDE 0.9% 2,721.54 ML 907.18 ML IV (08:06)
[2020-07-26 08:18] LABS: Adenovirus F 40/41 Not Detected (Not Detect); Astrovirus Not Detected (Not Detect); Campylobacter Not Detected (Not Detect); Clostridium difficile toxin AB Not Detected (Not Detect); Cryptosporidium Not Detected (Not Detect); Cyclospora cayetanensis Not Detected (Not Detect); Entamoeba histolytica Not Detected (Not Detect); Enteroaggregative E.coli Not Detected (Not Detect); Enteropathogenic E.coli Not Detected (Not Detect); Enterotoxigenic E.coli It/st Not Detected (Not Detect); Giardia lamblia Not Detected (Not Detect); Norovirus GI/GII Not Detected (Not Detect); Plesiomonsa shigelloides Not Detected (Not Detect); Rotavirus A Not Detected (Not Detect); Salmonella Not Detected (Not Detect); Sapovirus Not Detected (Not Detect); Shiga-like toxin-prod E.coli Not Detected (Not Detect); Shigella/Enteroinvasive E.coli Not Detected (Not Detect); Vibrio Not Detected (Not Detect); Vibrio cholerae Not Detected (Not Detect); Yersinia enterocolitica Not Detected (Not Detect)
[2020-07-26 08:37] LABS: Reflexed Lactate in 2 Hours Y
[2020-07-26 09:37] LABS: Bacteria Urine None Seen; WBC Urine None Seen (0-5/HPF)
[2020-07-26 09:39] LABS: Appearance Urine UA CLEAR; Bilirubin Urine UA NEGATIVE (NEGATIVE); Color Urine UA YELLOW; Glucose Urine UA NEGATIVE (Negative); Ketones Urine UA NEGATIVE (NEGATIVE); Leukocyte Esterase Urine UA NEGATIVE (NEGATIVE); Nitrite Urine UA NEGATIVE (Negative); Occult Blood Urine UA 1+ (Negative); Protein Urine UA 2+ (Negative); Urobilinogen Urine UA 0.2 E.U./dL (0.2)
[2020-07-26 09:47] LABS: Culture Indicated Urine Cult Not Indicated; RBC Urine 1-5/HPF (0-5/HPF)
[2020-07-26] MEDS: LOPERAMIDE 2 MG CAPSULE 4 MG PO (10:25)
[2020-07-26] MEDS: METOCLOPRAMIDE 10 MG/2 ML INJ IV (10:26)
--- NOTE | 2020-07-26 13:52 | P.HP_ITS ---
History of Present Illness History of Present Illness Date Patient Seen: 07/26/20 Time Patient Seen: 14:00 Chief complaint: Nausea and Vomiting Narrative: Earnest Wilks is a 54-year-old male with history alcoholic cirrhosis complicated by hep C, status post liver transplant at in 2011, CKD stage III, hypertension, GUILLE, gout, depression, GERD, and osteoporosis who presented to the emergency room with nausea, vomiting, and diarrhea since yesterday morning. Pat ient states that he has been unable to take any oral intake over the past day and had approximately 15 loose, runny bowel movements. He denies any fevers, or chills. He denies any shortness of breath, dyspnea on exertion, lower extremity edema, rash. He does endorse some epigastric abdominal pain that radiates into his back. He has chronic low back pain due to compression fractures for which s he has a fentanyl patch. Patient states that he has stopped taking his lactulose. He denies any hematemesis or hematochezia with his bowel movements. In the emergency room, patient was actually mildly hypertensive, and of no per prior documentation it appears he is usually borderline hypotensive. Initial laboratory evaluation showed a mild leukocytosis, hemoglobin of 13.4 actually up from his usual baseline, and mild thrombocytopenia with a platelet count of 139. Chemistries revealed a creatinine of 1.79, improved from apparent baseline noted in [facility] summary of 2.2-2.3. Tbili mildly elevated at 1.7, AST of 70, ALT 33, Alk phos of 380. Lipase was 22. Urinalysis did not reveal a source of infection. GI panel was negative for any infectious etiologies. Patient was given multiple doses of Dilaudid for pain control as well as Zofran and 4 mg of loperamide. Upon arrival to the floor he was feeling somewhat improved after fluids and above therapies, and asking for some juice. He is admitted under observation for intractable nausea and vomiting with acute dehydration and poor p.o. intake. Patient History Medical History Cirrhosis of liver CKD (chronic kidney disease) Compression fracture Depression GERD (gastroesophageal reflux disease) Gout Hepatitis C Hypertension Liver cancer GUILLE (obstructive sleep apnea) Osteoporosis Surgical History H/O right wrist surgery History of right hip replacement Liver transplant recipient Presence of left artificial elbow joint Family & Social History Family History Mother Renal failure Father Diabetes mellitus Congestive heart failure Social History: household members none Prior Living Arrangements RV Safety & Behavioral: Feels Safe in Current Yes Environment Been Physically Hurt or No Threatened By a Person Suicidal Ideation Description None Suicide Plan Description No Plan Tobacco & Substance use: Tobacco type cigarettes Smoking Status Current some day smoker alcohol intake former alcohol intake frequency a few times a week Substance Use Type marijuana Meds Home Medications and Allergies Home Medications Medication Instructions Recorded Confirmed Type Narcan 1 spray INTRANASAL NOW PRN 01/14/20 07/26/20 History Kellie-Ramila 1 tab PO DAILY 01/14/20 07/26/20 History acetaminophen [Tylenol] 650 mg PO Q8HR PRN 01/14/20 07/26/20 History allopurinol 100 mg PO DAILY 01/14/20 07/26/20 History cyclobenzaprine 10 mg PO BEDTIME PRN 01/14/20 07/26/20 History cyclosporine modified 25 mg PO BID 01/14/20 07/26/20 History docusate sodium 250 mg PO BID PRN 01/14/20 07/26/20 History duloxetine [Cymbalta] 20 mg PO DAILY 01/14/20 07/26/20 History fentanyl See Rx Instructions .ROUTE .COMPLEX 01/14/20 07/26/20 History gabapentin 300 mg PO BID 01/14/20 07/26/20 History hydroxyzine pamoate [Vistaril] 25 mg PO BEDTIME PRN 01/14/20 07/26/20 History lactulose 30 ml PO TID 01/14/20 07/26/20 History lidocaine [Lidoderm] 1 patch TOPICAL DAILY 01/14/20 07/26/20 History metoprolol succinate 75 mg PO DAILY 01/14/20 07/26/20 History mycophenolate mofetil [CellCept] 500 mg PO BID 01/14/20 07/26/20 History ondansetron HCl [Zofran] 4 mg PO Q8H PRN 01/14/20 07/26/20 History pyridoxine (vitamin B6) 100 mg PO DAILY 01/14/20 07/26/20 History quetiapine [Seroquel] 25 mg PO BEDTIME 01/14/20 07/26/20 History rifaximin 550 mg PO BID 01/14/20 07/26/20 History ursodiol 300 mg PO BID 01/14/20 07/26/20 History diphenoxylate-atropine [Lomotil] 1 tab PO DAILY PRN #10 tab 05/14/20 07/26/20 Rx ondansetron 4 mg PO TID-QID PRN #10 tab 05/14/20 07/26/20 Rx pantoprazole [Protonix] 40 mg PO DAILY #30 tab 05/14/20 07/26/20 Rx Allergies Allergy/AdvReac Type Severity Reaction Status Date / Time codeine Allergy Severe Vomiting Verified 06/26/20 10:11 NSAIDS (Non-Steroidal Allergy Severe Abdominal Verified 06/26/20 10:09 Anti-Inflamma Pain venom-honey bee Allergy Severe Wheezing Verified 06/26/20 10:11 [BEE VENOM (HONEY BEE)] dextromethorphan AdvReac Severe Seizure Verified 06/26/20 10:09 copper AdvReac Intermediate Verified 06/26/20 10:09 morphine AdvReac Intermediate Vomiting Verified 06/26/20 10:09 oxycodone AdvReac Intermediate Vomiting Verified 06/26/20 10:09 tizanidine AdvReac Unknown Verified 06/26/20 10:09 adhesive tape AdvReac Verified 06/26/20 10:09 pseudoephedrine AdvReac Verified 01/14/20 21:48 NYQUIL Allergy Unknown Uncoded 05/14/20 01:38 Review of Systems Review of Systems Narrative: All other systems reviewed with the patient and are negative unless otherwise stated. Exam Vital Signs (past 8 hours): - 07/26/20 06:08 07/26/20 08:03 07/26/20 08:06 Temperature 98.7 F Pulse Rate 76 70 70 Respiratory Rate 17 Blood Pressure 182/92 H 153/99 H Pulse Oximetry 94 91 98 07/26/20 08:29 07/26/20 08:30 07/26/20 08:31 Temperature Pulse Rate 81 69 71 Respiratory Rate Blood Pressure 149/92 H 141/104 H Pulse Oximetry 97 97 94 07/26/20 08:38 07/26/20 08:48 07/26/20 09:00 Temperature Pulse Rate 74 68 Respiratory Rate 18 Blood Pressure 132/88 144/79 H Pulse Oximetry 96 95 07/26/20 09:30 07/26/20 10:00 07/26/20 10:01 Temperature Pulse Rate 78 92 H 91 H Respiratory Rate Blood Pressure 137/95 H 138/91 H Pulse Oximetry 96 97 97 07/26/20 10:30 07/26/20 10:59 07/26/20 11:00 Temperature Pulse Rate 78 82 83 Respiratory Rate Blood Pressure 143/92 H 130/81 Pulse Oximetry 95 93 93 07/26/20 11:30 07/26/20 11:31 07/26/20 12:00 Temperature Pulse Rate 80 95 H 86 Respiratory Rate Blood Pressure 141/85 H 157/83 H Pulse Oximetry 97 97 95 07/26/20 13:03 Temperature 99.1 F Pulse Rate 98 H Respiratory Rate 18 Blood Pressure 146/88 H Pulse Oximetry 97 Oxygen Delivery Method Room Air Oxygen Flow Rate 0 Narrative Exam Narrative: GENERAL APPEARANCE: Well-developed, well-nourished, male appears stated age. Mildly uncomfortable appearing, slightly pale. SKIN: Inspection of the skin reveals no rashes, ulcerations or petechiae. HEENT: Normocephalic atraumatic, extraocular muscles are intact, oropharynx is clear and mucous membranes are dry, neck is supple without adenopathy NECK: Supple and symmetric. There was no thyroid enlargement, and no tenderness, or masses were felt. CHEST: Normal AP diameter and normal contour without any kyphoscoliosis. LUNGS: Auscultation of the lungs revealed no wheezes, rhonchi, or rales. CARDIOVASCULAR: There was a regular rate and rhythm without any murmurs, gallops, rubs. Peripheral pulses were 2+ and symmetric. ABDOMEN: Active bowel sounds, mild diffuse tenderness. + hernia. MUSCULOSKELETAL: There was no tenderness or effusions noted. Muscle strength and tone were normal. EXTREMITIES: No cyanosis, clubbing or edema. NEUROLOGIC: Alert and oriented x 3. Normal affect. Strength is +5/5 in the Upper Extremities and Lower Extremities Bilaterally. Sensation to touch was normal. Objective Imaging CT scan - abdomen: Radiologist's impression: IMPRESSION: 1. Limited evaluation due to lack of oral and IV contrast. 2. Heterogeneously hypodense liver parenchyma which may represent hepatic steatosis with sparing. Large hepatic lesion cannot be entirely excluded, suggest clinical correlation with liver function enzyme levels. Prior cholecystectomy. 3. No bowel obstruction. No definite bowel wall thickening. No free fluid or free air. Small hiatal hernia. Colonic diverticulosis without evidence of acute diverticulitis. 4. Bilateral renal cortical thinning, unchanged from prior study. No hydronephrosis or nephrolithiasis. 5. Chronic compression deformities involving multiple thoracic and lumbar spine vertebral bodies unchanged from prior study. Chest x-ray: Radiologist's impression: IMPRESSION: No acute cardiopulmonary pathology. Labs Result Diagrams: 07/26/20 06:35 07/26/20 06:35 Labs: Laboratory Results - last 24 hr 07/26/20 07/26/20 07/26/20 06:05 06:35 06:35 WBC 12.1 H RBC 4.12 L Hgb 13.4 L Hct 40.6 L MCV 98.4 MCH 32.6 MCHC 33.1 RDW 17.1 H Plt Count 139 L Neut % (Auto) 61.2 Lymph % (Auto) 32.8 Henderson % (Auto) 5.5 Eos % (Auto) 0.1 L Baso % (Auto) 0.4 Neut # (Auto) 7400 H Lymph # (Auto) 4000 Henderson # (Auto) 700 Eos # (Auto) 0 Baso # (Auto) 0 Sodium 139 Potassium 3.4 Chloride 104 Carbon Dioxide 24 BUN 30 H Creatinine 1.79 H Estimated GFR 39.5 L BUN/Creatinine Ratio 16.8 Glucose 107 H Lactate Calcium 9.1 Total Bilirubin 1.7 H AST 70 H ALT 33 Alkaline Phosphatase 380 H Total Protein 7.1 Albumin 3.6 Globulin 3.5 Albumin/Globulin Ratio 1.0 Lipase 22 L Urine Color Urine Appearance Urine pH Ur Specific Compton Urine Protein Urine Glucose (UA) Urine Ketones Urine Occult Blood Urine Nitrate Urine Bilirubin Urine Urobilinogen Ur Leukocyte Esterase Urine RBC Urine WBC Urine Bacteria Ur Culture Indicated? Stl C. cayetanensis PCR Stool Rotavirus (PCR) Stool Adenovirus (PCR) Stool Astrovirus (PCR) Stool Cryptosporidium PCR Stl E.coli Shiga Tox PCR St Sh/Enteroin Ecoli PCR Stool E coli O157 PCR Stl Enterotoxigenic E PCR Stool EPEC (PCR) Stl E. histolytica PCR Stool Giardia Lamblia PCR Stool Sapovirus (PCR) Stl P. shigelloides PCR St Y.enterocolitica PCR Stool Vibrio (PCR) Stl Vibrio cholerae PCR Stl Enteroaggr Ecoli PCR Stl Norovirus GI/GII PCR Campylobacter (PCR) C. difficile Tox (PCR) COVID-19 PCR Negative Salmonella (PCR) 07/26/20 07/26/20 07/26/20 06:35 06:50 08:50 WBC RBC Hgb Hct MCV MCH MCHC RDW Plt Count Neut % (Auto) Lymph % (Auto) Henderson % (Auto) Eos % (Auto) Baso % (Auto) Neut # (Auto) Lymph # (Auto) Henderson # (Auto) Eos # (Auto) Baso # (Auto) Sodium Potassium Chloride Carbon Dioxide BUN Creatinine Estimated GFR BUN/Creatinine Ratio Glucose Lactate 4.6 H* 2.0 Calcium Total Bilirubin AST ALT Alkaline Phosphatase Total Protein Albumin Globulin Albumin/Globulin Ratio Lipase Urine Color Urine Appearance Urine pH Ur Specific Compton Urine Protein Urine Glucose (UA) Urine Ketones Urine Occult Blood Urine Nitrate Urine Bilirubin Urine Urobilinogen Ur Leukocyte Esterase Urine RBC Urine WBC Urine Bacteria Ur Culture Indicated? Stl C. cayetanensis PCR Not detected Stool Rotavirus (PCR) Not detected Stool Adenovirus (PCR) Not detected Stool Astrovirus (PCR) Not detected Stool Cryptosporidium PCR Not detected Stl E.coli Shiga Tox PCR Not detected St Sh/Enteroin Ecoli PCR Not detected Stool E coli O157 PCR Not detected Stl Enterotoxigenic E PCR Not detected Stool EPEC (PCR) Not detected Stl E. histolytica PCR Not detected Stool Giardia Lamblia PCR Not detected Stool Sapovirus (PCR) Not detected Stl P. shigelloides PCR Not detected St Y.enterocolitica PCR Not detected Stool Vibrio (PCR) Not detected Stl Vibrio cholerae PCR Not detected Stl Enteroaggr Ecoli PCR Not detected Stl Norovirus GI/GII PCR Not detected Campylobacter (PCR) Not detected C. difficile Tox (PCR) Not detected COVID-19 PCR Salmonella (PCR) Not detected 07/26/20 09:20 WBC RBC Hgb Hct MCV MCH MCHC RDW Plt Count Neut % (Auto) Lymph % (Auto) Henderson % (Auto) Eos % (Auto) Baso % (Auto) Neut # (Auto) Lymph # (Auto) Henderson # (Auto) Eos # (Auto) Baso # (Auto) Sodium Potassium Chloride Carbon Dioxide BUN Creatinine Estimated GFR BUN/Creatinine Ratio Glucose Lactate Calcium Total Bilirubin AST ALT Alkaline Phosphatase Total Protein Albumin Globulin Albumin/Globulin Ratio Lipase Urine Color Yellow Urine Appearance Clear Urine pH 6.0 Ur Specific Compton 1.010 Urine Protein 2+ H Urine Glucose (UA) Negative Urine Ketones Negative Urine Occult Blood 1+ H Urine Nitrate Negative Urine Bilirubin Negative Urine Urobilinogen 0.2 Ur Leukocyte Esterase Negative Urine RBC 1-5/hpf Urine WBC None seen Urine Bacteria None seen Ur Culture Indicated? Cult not indicated Stl C. cayetanensis PCR Stool Rotavirus (PCR) Stool Adenovirus (PCR) Stool Astrovirus (PCR) Stool Cryptosporidium PCR Stl E.coli Shiga Tox PCR St Sh/Enteroin Ecoli PCR Stool E coli O157 PCR Stl Enterotoxigenic E PCR Stool EPEC (PCR) Stl E. histolytica PCR Stool Giardia Lamblia PCR Stool Sapovirus (PCR) Stl P. shigelloides PCR St Y.enterocolitica PCR Stool Vibrio (PCR) Stl Vibrio cholerae PCR Stl Enteroaggr Ecoli PCR Stl Norovirus GI/GII PCR Campylobacter (PCR) C. difficile Tox (PCR) COVID-19 PCR Salmonella (PCR) Assessment & Plan Assessment & Plan narrative: Earnest Wilks is a 54-year-old male with history alcoholic cirrhosis complicated by hep C, status post liver transplant at in 2011, CKD stage III, hypertension, GUILLE, gout, depression, GERD, and osteoporosis who presented to the emergency room with nausea, vomiting, and diarrhea since yesterday morning. Admitted under observation for intractable nausea and vomiting, dehyrdation. 1. nausea, vomiting, diarrhea, acute, present on admission. - likely secondary to viral gastroenteritis. GI panel negative on admission. Labs consistent with dehydration. COVID 19 testing negative. - continue supportive care with zofran, oral pain control, and loperamide. - patient can be discharged home once tolerating oral intake and sy mptomatically improved. - continue fluids NS @ 100 for now given dehydration secondary to acute illness. - given history of liver transplant, further evaluation with stool culture, O&P, and CMV will be obtained. - Lipase unremarkable. CT abdomen pelvis with no seemingly obvious cause. Patient is s/p cholecystectomy. - check EKG to rule out atypical ACS, although unlikely. Further to assess QT i nterval. 2. alcoholic and hep C cirrhosis s/p liver transplant, chronic, stable - mildly elevated bilirubin however CT on admission unremarkable. Continue current medications and continue to follow values. Possibly elevated in setting of dehydration. - will hold lactulose, continue home rifaximin. - continue cellcept, cyclosporine, ursodiol. 3. CKD stage III, stable - admission cr improved from apparent baseline. Avoid nephrotoxic medications. Will continue to monitor Cr. 4. HTN - patient hypertensive on admission, taking metoprolol and lasix on admission. Will hold lasix, resume home metoprolol and give today's dose as he reports not taking his morning medications. May need future adjustments. 5. GERD, chronic, stable - continue home PPI 6. GUILLE, chronic - continue to monitor, can use home CPAP machine if available. 7. Chronic low back pain - continue home fentanyl patch with additional pain relief as needed. Code: Full, as discussed with patient, surrogate decision maker is Leigh Guidry. Dispo: Admit under observation, anticipate discharge home once symptoms improve with supportive care, possibly as soon as this afternoon if tolerating oral intake, although suspect more likely discharge home tomorrow.
[2020-07-26] MEDS: SODIUM CHLORIDE 0.9% 1,000 ML 100 ML IV (13:58)
[2020-07-26] MEDS: fentaNYL 25 MCG/PATCH TOP (14:33)
[2020-07-26] MEDS: HYDROMORPHONE 2 MG TABLET PO ×3 (14:33→23:56)
[2020-07-26] MEDS: ONDANSETRON 4 MG ODT PO (14:34)
[2020-07-26] MEDS: GABAPENTIN 300 MG CAPSULE PO ×2 (14:34→21:09)
[2020-07-26] MEDS: RIFAXIMIN 550 MG TABLET PO ×2 (14:48→21:09)
[2020-07-26] MEDS: ursodioL 300 MG CAPSULE PO ×2 (15:11→21:09)
[2020-07-26] MEDS: MYCOPHENOLATE MOFETIL 500 MG TABLET PO ×2 (15:11→22:37)
[2020-07-26] MEDS: DULOXETINE 20 MG CAPSULE PO (15:11)
[2020-07-26] MEDS: METOPROLOL ER 25 MG TABLET 75 MG PO (15:14)
[2020-07-26] MEDS: CYCLOSPORINE MODIFIED 25 MG 1 EACH PO ×2 (15:23→21:08)
[2020-07-26] MEDS: QUETIAPINE 25 MG TABLET PO (21:09)
[2020-07-26] MEDS: FUROSEMIDE 20 MG TABLET PO (21:34)
[2020-07-27] MEDS: SODIUM CHLORIDE 0.9% 1,000 ML 100 ML IV (00:49)
[2020-07-27] MEDS: diphenhydrAMINE 25 MG TABLET PO (01:46)
[2020-07-27 02:00] VITALS: O2SAT 98
[2020-07-27] MEDS: HYDROMORPHONE 1 MG INJ IV (02:01)
[2020-07-27 05:25] LABS: Add Manual Diff / Slide Review NO; Basophils Absolute Auto 100 /uL (0-100); Basophils Percent Auto 0.7 % (0-2); Eosinophils Absolute Auto 100 /uL (0-450); Eosinophils Percent Auto 1.8 % (2-4); Hematocrit 32.9 % (41-53); Hemoglobin 10.8 g/dL (13.5-17.5); Lymphocytes Absolute Auto 3700 /uL (1100-4500); Lymphocytes Percent Auto 49.9 % (25-40); Mean Corpuscular HGB Conc 32.8 % (30-36); Mean Corpuscular Volume 100.6 fL (80-100); Monocytes Absolute Auto 800 /uL (0-900); Monocytes Percent Auto 10.7 % (3-14); Neutrophils Absolute Auto 2700 /uL (1500-7000); Neutrophils Percent Auto 36.9 % (50-75); Platelet Count 110 X10^3/uL (150-400); Red Blood Cell Count 3.26 X10^6/uL (4.5-5.9); Red Cell Distribution Width 17.2 % (11.6-14.8); White Blood Cell Count 7.4 X10^3/uL (4.5-11.0)
[2020-07-27 05:42] LABS: Alanine Aminotransferase 31 IU/L (<50); Albumin 2.6 g/dL (3.5-5.0); Albumin Globulin Ratio 0.9 (1.0-2.8); Alkaline Phosphatase 242 U/L (38-126); Aspartate Aminotransferase 81 IU/L (17-59); BUN Creatinine Ratio 15.9 (6-22); Bilirubin Total 1.2 mg/dL (0.2-1.3); Bilirubin Unconjugated 0.9 mg/dL (0.0-1.1); Blood Urea Nitrogen 29 mg/dL (9-20); Carbon Dioxide 25 mmol/L (22-32); Chloride 105 mmol/L (98-107); Estimated Glomerular Filt Rate 38.7 mL/min (>60); Globulin 2.9 g/dL (1.7-4.1); Glucose 103 mg/dL (70-100); HEMOLYSIS < 15 (0-50); Magnesium 1.4 mg/dL (1.6-2.3); Potassium 3.3 mmol/L (3.4-5.1); Sodium 134 mmol/L (137-145); Total Protein 5.5 g/dL (6.3-8.2)
[2020-07-27 06:00] VITALS: BP 127/68; PULSE 58; RESP 16; TEMP 36.2; O2SAT 96
[2020-07-27] MEDS: PANTOPRAZOLE 40 MG TABLET PO (06:38)
[2020-07-27 07:47] VITALS: BP 121/84; PULSE 59; RESP 16; TEMP 36.4; O2SAT 96
[2020-07-27] MEDS: MAGNESIUM SULFATE 2 GM/50 ML PIGGYBACK IV (07:52)
[2020-07-27] MEDS: POTASSIUM CHLORIDE 20 MEQ TAB 40 MEQ PO (07:53)
[2020-07-27] MEDS: allopurinoL 100 MG TABLET PO (07:55)
[2020-07-27] MEDS: DULOXETINE 20 MG CAPSULE PO (07:55)
[2020-07-27] MEDS: FUROSEMIDE 20 MG TABLET PO (07:56)
[2020-07-27] MEDS: GABAPENTIN 300 MG CAPSULE PO (07:56)
[2020-07-27] MEDS: INFLUENZA VACCINE 0.5 ML SYRINGE IM (07:56)
[2020-07-27] MEDS: LIDOCAINE PATCH 1 EACH ADH..PATCH TOP (07:57)
[2020-07-27 07:58] VITALS: BP 121/84; PULSE 62
[2020-07-27] MEDS: METOPROLOL ER 25 MG TABLET 75 MG PO (07:58)
[2020-07-27] MEDS: PYRIDOXINE (VITAMIN B6) 50 MG TABLET 100 MG PO (08:00)
[2020-07-27] MEDS: RIFAXIMIN 550 MG TABLET PO (08:00)
[2020-07-27] MEDS: CYCLOSPORINE MODIFIED 25 MG 1 EACH PO (08:00)
[2020-07-27] MEDS: MYCOPHENOLATE MOFETIL 500 MG TABLET PO (08:00)
[2020-07-27] MEDS: ursodioL 300 MG CAPSULE PO (08:01)
[2020-07-27] MEDS: NEPHRO-VITE RX TABLET 1 TAB PO (08:01)
[2020-07-27] MEDS: HYDROMORPHONE 2 MG TABLET PO (08:01)
--- NOTE | 2020-07-27 08:17 | P.DS_ITS ---
History of Present Illness History of Present Illness Date Patient Seen: 07/27/20 Time Patient Seen: 08:17 Chief complaint: Nausea and Vomiting Narrative: Earnest Wilks is a 54-year-old male with history alcoholic cirrhosis complicated by hep C, status post liver transplant at in 2011, CKD stage III, hypertension, GUILLE, gout, depression, GERD, and osteoporosis who presented to the emergency room with nausea, vomiting, and diarrhea since yesterday morning. Pat ient states that he has been unable to take any oral intake over the past day and had approximately 15 loose, runny bowel movements. He denies any fevers, or chills. He denies any shortness of breath, dyspnea on exertion, lower extremity edema, rash. He does endorse some epigastric abdominal pain that radiates into his back. He has chronic low back pain due to compression fractures for which s he has a fentanyl patch. Patient states that he has stopped taking his lactulose. He denies any hematemesis or hematochezia with his bowel movements. In the emergency room, patient was actually mildly hypertensive, and of no per prior documentation it appears he is usually borderline hypotensive. Initial laboratory evaluation showed a mild leukocytosis, hemoglobin of 13.4 actually up from his usual baseline, and mild thrombocytopenia with a platelet count of 139. Chemistries revealed a creatinine of 1.79, improved from apparent baseline noted in [facility] summary of 2.2-2.3. Tbili mildly elevated at 1.7, AST of 70, ALT 33, Alk phos of 380. Lipase was 22. Urinalysis did not reveal a source of infection. GI panel was negative for any infectious etiologies. Patient was given multiple doses of Dilaudid for pain control as well as Zofran and 4 mg of loperamide. Upon arrival to the floor he was feeling somewhat improved after fluids and above therapies, and asking for some juice. He is admitted under observation for intractable nausea and vomiting with acute dehydration and poor p.o. intake. Discharge Providers Provider Date of admission: 07/26/20 10:51 Discharge Date: 07/27/20 Primary care physician: Natacha Rowley MD Discharge provider: Arnoldo Austin DO Summary Hospital Course Discharge Diagnosis: 1. nausea, vomiting, diarrhea, acute, present on admission. 2. alcoholic and hep C cirrhosis s/p liver transplant, chronic, stable 3. CKD stage III, stable 4. HTN 5. GERD, chronic, stable 6. GUILLE, chronic 7. Chronic low back pain Hospital Course: Earnest Wilks is a 54-year-old male with history alcoholic cirrhosis complicated by hep C, status post liver transplant at in 2011, CKD stage III, hypertension, GUILLE, gout, depression, GERD, and osteoporosis who presented to the emergency room with nausea, vomiting, and diarrhea since yesterday morning. Admitted under observation for intractable nausea and vomiting, dehyrdation. He improved quickly with symptomatic therapy including zofran and loperamide and rehydration. GI panel was negative for infectious causes. The following morning he was tolerating a diet and diarrhea and abdominal pain had improved. He was discharged home with instructions to resume his lactulose if no further bowel movements or diarrhea. Exam Vital Signs (past 8 hours): - 07/27/20 02:00 07/27/20 06:00 07/27/20 07:47 Temperature 97.2 F L 97.5 F L Pulse Rate 58 L 59 L Respiratory Rate 16 16 Blood Pressure 127/68 121/84 Pulse Oximetry 98 96 96 07/27/20 07:58 Temperature Pulse Rate 62 Respiratory Rate Blood Pressure 121/84 Pulse Oximetry Oxygen Delivery Method Room Air Oxygen Flow Rate 0 Narrative Exam Narrative: GENERAL APPEARANCE: Well-developed, well-nourished, male appears stated age. SKIN: Inspection of the skin reveals no rashes, ulcerations or petechiae. HEENT: Normocephalic atraumatic, extraocular muscles are intact, oropharynx is clear and mucous membranes are dry, neck is supple without adenopathy NECK: Supple and symmetric. There was no thyroid enlargement, and no tenderness, or masses were felt. CHEST: Normal AP diameter and normal contour without any kyphoscoliosis. LUNGS: Auscultation of the lungs revealed no wheezes, rhonchi, or rales. CARDIOVASCULAR: There was a regular rate and rhythm without any murmurs, gallops, rubs. Peripheral pulses were 2+ and symmetric. ABDOMEN: Active bowel sounds, non-tender, + large hernia. MUSCULOSKELETAL: There was no tenderness or effusions noted. Muscle strength and tone were normal. EXTREMITIES: No cyanosis, clubbing or edema. NEUROLOGIC: Alert and oriented x 3. Normal affect. Strength is +5/5 in the Upper Extremities and Lower Extremities Bilaterally. Sensation to touch was normal. Objective Labs Result Diagrams: 07/27/20 05:00 07/27/20 05:00 Labs: Laboratory Results - last 24 hr 07/26/20 07/26/20 07/26/20 06:50 08:50 09:20 WBC RBC Hgb Hct MCV MCH MCHC RDW Plt Count Neut % (Auto) Lymph % (Auto) Chase % (Auto) Eos % (Auto) Baso % (Auto) Neut # (Auto) Lymph # (Auto) Chase # (Auto) Eos # (Auto) Baso # (Auto) Sodium Potassium Chloride Carbon Dioxide BUN Creatinine Estimated GFR BUN/Creatinine Ratio Glucose Lactate 2.0 Calcium Magnesium Total Bilirubin Conjugated Bilirubin Unconjugated Bilirubin AST ALT Alkaline Phosphatase Total Protein Albumin Globulin Albumin/Globulin Ratio Urine Color Yellow Urine Appearance Clear Urine pH 6.0 Ur Specific [place] 1.010 Urine Protein 2+ H Urine Glucose (UA) Negative Urine Ketones Negative Urine Occult Blood 1+ H Urine Nitrate Negative Urine Bilirubin Negative Urine Urobilinogen 0.2 Ur Leukocyte Esterase Negative Urine RBC 1-5/hpf Urine WBC None seen Urine Bacteria None seen Ur Culture Indicated? Cult not indicated Stl C. cayetanensis PCR Not detected Stool Rotavirus (PCR) Not detected Stool Adenovirus (PCR) Not detected Stool Astrovirus (PCR) Not detected Stool Cryptosporidium PCR Not detected Stl E.coli Shiga Tox PCR Not detected St Sh/Enteroin Ecoli PCR Not detected Stool E coli O157 PCR Not detected Stl Enterotoxigenic E PCR Not detected Stool EPEC (PCR) Not detected Stl E. histolytica PCR Not detected Stool Giardia Lamblia PCR Not detected Stool Sapovirus (PCR) Not detected Stl P. shigelloides PCR Not detected St Y.enterocolitica PCR Not detected Stool Vibrio (PCR) Not detected Stl Vibrio cholerae PCR Not detected Stl Enteroaggr Ecoli PCR Not detected Stl Norovirus GI/GII PCR Not detected Campylobacter (PCR) Not detected C. difficile Tox (PCR) Not detected Salmonella (PCR) Not detected 07/27/20 07/27/20 05:00 05:00 WBC 7.4 RBC 3.26 L Hgb 10.8 L Hct 32.9 L MCV 100.6 H MCH 33.0 MCHC 32.8 RDW 17.2 H Plt Count 110 L Neut % (Auto) 36.9 L D Lymph % (Auto) 49.9 H Chase % (Auto) 10.7 Eos % (Auto) 1.8 L Baso % (Auto) 0.7 Neut # (Auto) 2700 Lymph # (Auto) 3700 Chase # (Auto) 800 Eos # (Auto) 100 Baso # (Auto) 100 Sodium 134 L Potassium 3.3 L Chloride 105 Carbon Dioxide 25 BUN 29 H Creatinine 1.82 H Estimated GFR 38.7 L BUN/Creatinine Ratio 15.9 Glucose 103 H Lactate Calcium 7.0 L Magnesium 1.4 L Total Bilirubin 1.2 Conjugated Bilirubin 0.0 Unconjugated Bilirubin 0.9 AST 81 H ALT 31 Alkaline Phosphatase 242 H Total Protein 5.5 L Albumin 2.6 L Globulin 2.9 Albumin/Globulin Ratio 0.9 L Urine Color Urine Appearance Urine pH Ur Specific [place] Urine Protein Urine Glucose (UA) Urine Ketones Urine Occult Blood Urine Nitrate Urine Bilirubin Urine Urobilinogen Ur Leukocyte Esterase Urine RBC Urine WBC Urine Bacteria Ur Culture Indicated? Stl C. cayetanensis PCR Stool Rotavirus (PCR) Stool Adenovirus (PCR) Stool Astrovirus (PCR) Stool Cryptosporidium PCR Stl E.coli Shiga Tox PCR St Sh/Enteroin Ecoli PCR Stool E coli O157 PCR Stl Enterotoxigenic E PCR Stool EPEC (PCR) Stl E. histolytica PCR Stool Giardia Lamblia PCR Stool Sapovirus (PCR) Stl P. shigelloides PCR St Y.enterocolitica PCR Stool Vibrio (PCR) Stl Vibrio cholerae PCR Stl Enteroaggr Ecoli PCR Stl Norovirus GI/GII PCR Campylobacter (PCR) C. difficile Tox (PCR) Salmonella (PCR) [facility] Medical History Cirrhosis of liver CKD (chronic kidney disease) Compression fracture Depression GERD (gastroesophageal reflux disease) Gout Hepatitis C Hypertension Liver cancer GUILLE (obstructive sleep apnea) Osteoporosis Surgical History H/O right wrist surgery History of right hip replacement Liver transplant recipient Presence of left artificial elbow joint Family History Mother Renal failure Father Diabetes mellitus Congestive heart failure Social History household members: none Smoking Status: Current some day smoker alcohol intake: former Discharge Plan Discharge Plan Patient Disposition: Home Provider Discharge Comment: You were admitted to the hospital with dehydration due to nausea, vomiting, and diarrhea. Please continue to take zofran, your current pain medications, and loperamide if needed. Please try and keep your bowel movements to between 2-3 per day. If no bowel movements today please resume lactulose. No other medication changes are recommended. Discharge orders & Medications Prescriptions: Continued furosemide 20 mg tablet 20 mg PO DAILY RF: 0 quetiapine [Seroquel] 25 mg Tablet 25 mg PO BEDTIME RF: 0 cyclobenzaprine 10 mg Tablet 10 mg PO BEDTIME PRN (Reason: Spasms) RF: 0 cyclosporine modified 25 mg Capsule 25 mg PO BID RF: 0 ondansetron HCl [Zofran] 4 mg Tablet 4 mg PO Q8H PRN (Reason: Nausea) RF: 0 allopurinol 100 mg Tablet 100 mg PO DAILY RF: 0 mycophenolate mofetil [CellCept] 500 mg Tablet 500 mg PO BID RF: 0 lidocaine [Lidoderm] 5 % Adhesive Patch,Medicated 1 patch TOPICAL DAILY RF: 0 ursodiol 300 mg Capsule 300 mg PO BID RF: 0 gabapentin 300 mg Capsule 300 mg PO BID RF: 0 Kellie-Ramila 0.8 mg Tablet 1 tab PO DAILY RF: 0 pyridoxine (vitamin B6) 100 mg Tablet 100 mg PO DAILY RF: 0 fentanyl 25 mcg/hr Patch 72 Hour See Rx Instructions .ROUTE .COMPLEX RF: 0 docusate sodium 250 mg Capsule 250 mg PO BID PRN (Reason: Constipation) RF: 0 hydroxyzine pamoate [Vistaril] 25 mg Capsule 25 mg PO BEDTIME PRN (Reason: Itching) RF: 0 duloxetine [Cymbalta] 20 mg Capsule,Delayed Release(Dr/Ec) 20 mg PO DAILY RF: 0 lactulose 10 gram/15 mL Solution 30 ml PO TID RF: 0 acetaminophen [Tylenol] 325 mg Capsule 650 mg PO Q8HR PRN (Reason: Pain, Moderate) RF: 0 rifaximin 550 mg Tablet 550 mg PO BID RF: 0 Narcan 4 mg/actuation [place],Non-Aerosol 1 spray INTRANASAL NOW PRN (Reason: (Drug) Ingestion) RF: 0 metoprolol succinate 25 mg Capsule,Sprinkle,Er 24hr 75 mg PO DAILY RF: 0 ondansetron 4 mg tablet,disintegrating 4 mg PO TID-QID PRN (Reason: nausea and vomiting) Qty: 10 RF: 0 diphenoxylate-atropine [Lomotil] 2.5-0.025 mg tablet 1 tab PO DAILY PRN (Reason: diarrhea) Qty: 10 RF: 0 pantoprazole [Protonix] 40 mg tablet,delayed release (DR/EC) 40 mg PO DAILY Qty: 30 RF: 0 Follow up/Referrals: Natacha Rowley MD [Primary Care Provider] - Diet/Activity/Treatments Diet: Diet as Tolerated Activity: As tolerated Visit Report/Discharge Packet Instructions: Dehydration Discharge Data Primary Care Provider: Natacha Rowley Attending Provider: Arnoldo Austin
[2020-07-27 10:00] VITALS: O2SAT 98
[2020-07-27 11:19] VITALS: BP 99/73; PULSE 70
--- NOTE | 2020-07-27 11:35 | PC.NURSE ---
Patient educated about diet, activity, and continued medications. Patient educated about follow up w/ primary doctor, ss of stroke and fall prevention. Patient left facility w/ home medications from pharmacy, and with all belongings. Patient left facility via wheelchair and private vehicle. Patient did not have any prescriptions from Dr. Ritter to fill.
--- NOTE | 2020-07-27 13:47 | CM.DANOTE ---
Addendum entered by Lara Finley R.N. 07/27/20 14:19: Mando at [facility] indicated that they do not take [place]/Medicaid. Asking Penny phlebotomy lab assistant, to check with [facility], other option is to see if patient would be willing to go back with [facility]. All paper work is ready to be faxed for home health. Original Note: DCP: Case received, EMR reviewed and met with patient. Introduced self and role. Was able to obtain information from patient regarding his baseline activity status, health information, as well as his current living situation and to assess resources needed. DCP assessment completed with information currently available. Patient is a 54 year old male who admitted yesterday morning to the care of the hospitalist team. PCP: Dr. Rowley. Payer: confirmed: [facility] [place]. Patient came to the hospital via ambulance secondary to nausea and vomiting. Patient has history of liver transplant, secondary to cirrhosis of the liver. He also has chronic kidney disease state 3. Patient has ETOH history, and denies any current drinking. Patient was admitted for dehydration. Patient stated and confirmed that he resides alone, and lives in an . He is currently residing here in [place] off of [address]. He stated that he has friends that can help him at times, and only drives every third day, due to his Fentanyl patch. He stated that he does have a walker for home use, and sometimes it's hard to get around due to chronic back pain. Patient stated, he used to have [facility] before, but felt that they discharged him too soon. He is requesting [facility]. He is also working with [facility] for JUSTICE caregiving, which is currently in process. P: Patient is to be discharged home today. Had Dr. Austin sign face to face. Will obtain orders for nursing, P.T, O.T, EXERCISE INSTRUCTOR, as notes indicated that patient did not take his Lactulose. Will fax [facility] face to face, orders, DC summary, and will call to confirm that they receive. Lara Finley RN/Manager Of Recruiting
--- NOTE | 2020-07-27 14:39 | CM.DPNOTE ---
Faxed H&P and DC Summary to [facility] with FS on 07/27/20. Penny Copeland CM Asst.
[2020-07-28 16:20] LABS: CMV DNA, Quant Real Time PCR Negative (Negative)
--- NOTE | 2020-08-03 21:18 | PC.NURSE ---
Late Entry; Magnesium infusion initiated 07/27 at 07:52, complete at 09:53.
== END 2020-07-27 11:43 | disposition home or self-care (01) ==
LOC: ED 10:19 → AC 10:52
PROVIDERS: Emergency Medicine; Admitting Provider Internal Medicine; Emergency Provider Emergency Medicine; Family Provider Internal Medicine; PCP Internal Medicine; Referring Provider Emergency Medicine; Visit Provider Internal Medicine
DX: R11.2 Nausea with vomiting, unspecified (principal); R19.7 Diarrhea, unspecified; N18.30 Chronic kidney disease, stage 3 unspecified; K70.30 Alcoholic cirrhosis of liver without ascites; B19.20 Unspecified viral hepatitis C without hepatic coma; Z94.4 Liver transplant status; I10 Essential (primary) hypertension; G47.33 Obstructive sleep apnea (adult) (pediatric); M10.9 Gout, unspecified; F32.9 Major depressive disorder, single episode, unspecified; K21.9 Gastro-esophageal reflux disease without esophagitis; M81.0 Age-related osteoporosis without current pathological fracture; M54.5 Low back pain; F17.210 Nicotine dependence, cigarettes, uncomplicated; E86.0 Dehydration; Z01.812 Encounter for preprocedural laboratory examination; Z20.828 Contact with and (suspected) exposure to other viral communicable diseases
CPT/HCPCS: 36415; 71045; 74176; 80048; 80053; 80076; 81001; 81003; 83605; 83690; 83735; 85025; 87040; 87497; 87507; 87635; 90471; 90656; 93005; 93010; 96361; 96374; 96375; 96376; 99283; 99284; G0378; C9113; J1170; J1885; J2405; J2765; Q2038

== ENCOUNTER 2020-09-20 08:49 | Inpatient (IN) | payer OTHER, MEDICAID, SELFPAY ==
[2020-07-26 12:36] VITALS: BMI 29.5
[2020-09-20] VITALS (13 sets, daily range): BP systolic 108–134; BP diastolic 54–75; PULSE 65–82; RESP 18–19; TEMP 36.4–37.6; O2SAT 96–98; BMI 27.9
--- NOTE | 2020-09-20 08:51 | DI.CT.S_ITS ---
PROCEDURE: CT THORACIC SPINE WO CON INDICATIONS: fall down stairs with mid T spine pain TECHNIQUE: Noncontrast 3 mm thick sections acquired through the region of interest in the thoracic spine. Sagittal and coronal reformats were then constructed. For radiation dose reduction, the following was used: automated exposure control. COMPARISON: [facility], CT, CT THORACIC SPINE WITHOUT CONTRAST, 03/24/2018, 3:34. [facility], CT, CT ABDOMEN PELVIS WO CON, 07/26/2020, 7:59. FINDINGS: Image quality: Excellent. Bones: There is normal overall bony alignment. There are innumerable compression fractures, most which are chronic. On visualized levels, there are compression fractures involving T2, T3, T4, T5, T6, T7, T8, T9, T10, T11, T12, and L1. T9 may have a subacute component. Multiple old healed rib fractures involving posterior left ribs. No suspicious sclerotic or lytic bony lesions. Central spinal canal is of normal overall caliber. Soft tissues: No paravertebral masses or hematomas. Visualized posteromedial lungs appear clear. IMPRESSION: 1. There are innumerable chronic compression fractures in the thoracic spine, consistent with severe osteoporosis. 2. Question a subacute component involving T9. 3. Multiple old healed left posterior rib fractures. Comment: Consider multiple myeloma is in etiology in a patient with innumerable compression fractures. Additional comment: Consider thoracic spine MRI to evaluate whether there is any fracture acuity present. Dictated by: Kenan Banuelos M.D. on 09/20/2020 at 10:22 Approved by: Kenan Banuelos M.D. on 09/20/2020 at 10:30
--- NOTE | 2020-09-20 08:51 | DI.RAD.S_ITS ---
PROCEDURE: XR TIBIA FUBULA RT 2V INDICATIONS: GLF WITH PAIN TECHNIQUE: 2 views of the tibia and fibula were acquired. COMPARISON: None. FINDINGS: Bones: Nondisplaced lateral malleolar fracture. Probable nondisplaced proximal fibular neck fracture. No other fractures or dislocations seen. No suspicious bony lesions. Soft tissues: No suspicious soft tissue calcifications or masses. IMPRESSION: 1. Nondisplaced lateral malleolar fracture. 2. Probable nondisplaced proximal fibular neck fracture. Comment: Consider right ankle plain films for further evaluation at the ankle. Dictated by: Kenan Banuelos M.D. on 09/20/2020 at 10:17 Approved by: Kenan Banuelos M.D. on 09/20/2020 at 10:19
--- NOTE | 2020-09-20 08:51 | DI.RAD.S_ITS ---
PROCEDURE: XR TIBIA FIBULA RT 2V INDICATIONS: GLF WITH PAIN TECHNIQUE: 2 views of the tibia and fibula were acquired. COMPARISON: None. FINDINGS: Bones: Proximal fibular neck fracture. Question nondisplaced distal fibular fracture. No other fractures or dislocations seen. No suspicious bony lesions. Soft tissues: No suspicious soft tissue calcifications or masses. IMPRESSION: 1. Nondisplaced left fibular neck fracture. 2. Question distal fibular fracture. Comment: Consider left ankle plain films for further evaluation. Dictated by: Kenan Banuelos M.D. on 09/20/2020 at 10:19 Approved by: Kenan Banuelos M.D. on 09/20/2020 at 10:20
--- NOTE | 2020-09-20 08:52 | DI.CT.S_ITS ---
PROCEDURE: CT HEAD/BRAIN WO CON INDICATIONS: fall yesterday and hit head TECHNIQUE: Noncontrast 4.5 mm thick angled axial sections acquired from the foramen magnum to the vertex, with coronal and sagittal reformats. For radiation dose reduction, the following was used: automated exposure control, adjustment of mA and/or kV according to patient size. COMPARISON: [facility], MR, MR BRAIN WITHOUT CONTRAST, 04/01/2018, 21:50. [facility], CT, CT HEAD/BRAIN WO CON, 06/26/2020, 2:50. FINDINGS: Image quality: Excellent. CSF spaces: Basal cisterns are patent. No extra-axial fluid collections. The ventricles are symmetric in size and shape. Brain: No intracranial bleeds or masses. There is cerebral volume loss for age, with resultant ventricular and sulcal prominence. There are mild periventricular and deep white matter chronic small vessel ischemic changes. Question old left pontine lacunar infarct versus artifact. Skull and face: Calvarium and visualized facial bones appear intact, without suspicious lesions. Sinuses: Visualized sinuses and mastoids are clear. IMPRESSION: 1. Age related volume loss and mild small vessel ischemic change. 2. No evidence acute stroke, hemorrhage, or mass. 3. No evidence of significant intracranial sequelae of acute trauma. Dictated by: Kenan Banuelos M.D. on 09/20/2020 at 10:00 Approved by: Kenan Banuelos M.D. on 09/20/2020 at 10:04
--- NOTE | 2020-09-20 08:58 | ED.GENADULT ---
HPI - General Adult General Chief complaint: Fall Stated complaint: extreme pain Hx liver Transplant Time Seen by Provider: 09/20/20 08:51 Source: patient and EMS Mode of arrival: EMS Limitations: no limitations History of Present Illness HPI narrative: Patient is a 54-year-old male. Approximately 7 years ago underwent a liver transplant secondary to cancer. Not on anticoagulation. States that last evening he was walking into the kitchen in order to make dinner when he became lightheaded and fell down approximately 3 stairs. He did hit his head. There was no loss of consciousness. He states that he occasionally gets lightheaded and what happened last evening was not necessarily unusual for him. He did not have any chest pain or shortness of breath or palpitations at the time. He did hit his chin during the fall. He states that he could not stand last evening because of pain in his lower extremities. He crawled to his bed and was able to get into bed and slept last evening however this morning when he woke up he could not get out of bed secondary to the pain. Arrived by EMS. Describes the pain in both of his legs from his knees down both sides. Related Data Home Medications Medication Instructions Recorded Confirmed Narcan 1 spray INTRANASAL NOW PRN 01/14/20 07/26/20 Kellie-Ramila 1 tab PO DAILY 01/14/20 07/26/20 acetaminophen [Tylenol] 650 mg PO Q8HR PRN 01/14/20 07/26/20 allopurinol 100 mg PO DAILY 01/14/20 07/26/20 cyclobenzaprine 10 mg PO BEDTIME PRN 01/14/20 07/26/20 cyclosporine modified 25 mg PO BID 01/14/20 07/26/20 docusate sodium 250 mg PO BID PRN 01/14/20 07/26/20 duloxetine [Cymbalta] 20 mg PO DAILY 01/14/20 07/26/20 fentanyl See Rx Instructions .ROUTE .COMPLEX 01/14/20 07/26/20 gabapentin 300 mg PO BID 01/14/20 07/26/20 hydroxyzine pamoate [Vistaril] 25 mg PO BEDTIME PRN 01/14/20 07/26/20 lactulose 30 ml PO TID 01/14/20 07/26/20 lidocaine [Lidoderm] 1 patch TOPICAL DAILY 01/14/20 07/26/20 metoprolol succinate 75 mg PO DAILY 01/14/20 07/26/20 mycophenolate mofetil [CellCept] 500 mg PO BID 01/14/20 07/26/20 ondansetron HCl [Zofran] 4 mg PO Q8H PRN 01/14/20 07/26/20 pyridoxine (vitamin B6) 100 mg PO DAILY 01/14/20 07/26/20 quetiapine [Seroquel] 25 mg PO BEDTIME 01/14/20 07/26/20 rifaximin 550 mg PO BID 01/14/20 07/26/20 ursodiol 300 mg PO BID 01/14/20 07/26/20 furosemide 20 mg PO DAILY 07/26/20 07/26/20 Previous Rx's Medication Instructions Recorded diphenoxylate-atropine [Lomotil] 1 tab PO DAILY PRN #10 tab 05/14/20 ondansetron 4 mg PO TID-QID PRN #10 tab 05/14/20 pantoprazole [Protonix] 40 mg PO DAILY #30 tab 05/14/20 Allergies Allergy/AdvReac Type Severity Reaction Status Date / Time codeine Allergy Severe Vomiting Verified 06/26/20 10:11 NSAIDS (Non-Steroidal Allergy Severe Abdominal Verified 06/26/20 10:09 Anti-Inflamma Pain venom-honey bee Allergy Severe Wheezing Verified 06/26/20 10:11 [BEE VENOM (HONEY BEE)] dextromethorphan AdvReac Severe Seizure Verified 06/26/20 10:09 copper AdvReac Intermediate Verified 06/26/20 10:09 morphine AdvReac Intermediate Vomiting Verified 06/26/20 10:09 oxycodone AdvReac Intermediate Vomiting Verified 06/26/20 10:09 tizanidine AdvReac Unknown Verified 06/26/20 10:09 adhesive tape AdvReac Verified 06/26/20 10:09 pseudoephedrine AdvReac Verified 01/14/20 21:48 NYQUIL Allergy Unknown Uncoded 05/14/20 01:38 Review of Systems Constitutional Constitutional: Denies fever(s) and Denies headache(s) Eyes Eyes: Denies change in vision ENT Ears, Nose, Mouth, and Throat: Denies vertigo, Reports dizziness, Denies headache(s) and Reports disequilibrium Cardiovascular Cardiovascular: Denies chest pain, Reports syncope, Denies rapid heart rate, Denies irregular heart rhythm, Denies lightheadedness and Denies dyspnea Respiratory Respiratory: Denies cough and Denies dyspnea Gastrointestinal Gastrointestinal: Denies abdominal pain, Denies melena, Denies nausea and Denies vomiting Genitourinary Genitourinary: Denies dysuria Genitourinary: Denies dysuria Musculoskeletal Comments: Bilateral leg pain, neck pain, back pain Integumentary/Breasts Skin/Breast: Denies lesions and Denies rash Neurologic Neurologic: Denies behavioral changes, Denies vertigo, Reports dizziness, Reports syncope, Denies headache(s) and Reports disequilibrium Psychiatric Psychiatric: Denies behavioral changes Hematologic/Lymphatic On Anticoagulants: No Allergic/Immunologic Allergic/Immunologic: Denies urticaria Patient History Medical History Cirrhosis of liver CKD (chronic kidney disease) Compression fracture Depression GERD (gastroesophageal reflux disease) Gout Hepatitis C Hypertension Liver cancer GUILLE (obstructive sleep apnea) Osteoporosis Surgical History H/O right wrist surgery History of right hip replacement Liver transplant recipient Presence of left artificial elbow joint Family History Mother Renal failure Father Diabetes mellitus Congestive heart failure Social History household members: none Smoking Status: Current some day smoker alcohol intake: former Smoking Status: Current some day smoker alcohol intake frequency: a few times a week Alcohol type: hard liquor Substance Use Type: marijuana Exam Initial Vital Signs Initial Vital Signs: Vital Signs Temperature 99.6 F 09/20/20 08:55 Pulse Rate 81 09/20/20 08:55 Respiratory Rate 18 09/20/20 08:55 Blood Pressure 134/74 09/20/20 08:55 Pulse Oximetry 96 09/20/20 08:55 Const General: cooperative and No comfortable (Uncomfortable) Limitations: mental status not altered HENVA Head: normal to inspection and normocephalic Chest Chest: No crepitus and No tenderness Resp Effort & Inspection: normal respiratory effort Auscultation: clear to auscultation bilaterally Cardio Rate: regular rate Rhythm: regular rhythm GI Inspection: non-distended Palpation: soft, No firm and No tender Back/Spine/Pelvis Cervical Spine: cervical spinal tenderness Thoracic/Lumbar Spine: No paraspinal tenderness, thoracic spinal tenderness and lumbar spinal tenderness Skin Other: Well-healed surgical scar abdomen consistent with the stated surgical history. Patient also has a superficial abrasion to his chin. No active bleeding. Neuro General: patient alert, patient awake and patient oriented x3 Cognition: normal cognition Speech: speech normal Extrem General: capillary refill normal Other: Patient does have swelling to his right lower extremity/right ankle. He has discomfort with palpation from his knees down both legs with right being worse than the left. His pelvis is stable. Bilateral femurs do not have any tenderness to palpation. His upper extremities are unremarkable and has no tenderness. Psych Appearance: grossly normal and well kempt Scores GCS [place] coma scale eye opening: Spontaneous [place] coma scale verbal response: Orientated [place] coma scale motor response: Obey commands Atul coma scale total score: 15 Course Orders Ordered: ED Orders 09/20/20 08:51 CT thoracic spine wo con Stat XR tibia fibula LT 2V Stat XR tibia fibula RT 2V Stat 09/20/20 08:52 CT head/brain wo con Stat Comprehensive Metabolic Panel Stat Creatine Kinase Stat Lipase Stat 09/20/20 08:55 EKG-12 Lead Stat 09/20/20 08:57 CT lumbar spine wo con Stat 09/20/20 10:24 CT cervical spine wo con Stat 09/20/20 10:28 XR ankle LT min 3V Stat XR ankle RT min 3V Stat 09/20/20 10:36 Complete Blood Count AUTO DIFF Stat 09/20/20 11:03 COVID19 Stat 09/20/20 11:11 Consult to Orthopedic Surgery Stat Discontinued Medications Hydromorphone HCl (Hydromorphone 1 Mg Inj) 1 mg IV NOW ONE Stop: 09/20/20 09:00 Last Admin: 09/20/20 09:35 Dose: 1 mg Documented by: JAIME Hydromorphone HCl (Hydromorphone 0.5 Mg Inj) 1 mg IV NOW ONE Stop: 09/20/20 11:56 Last Admin: 09/20/20 12:03 Dose: 1 mg Documented by: DIMITRY Sodium Chloride (Normal Saline 0.9%) 1,000 mls @ 1,000 mls/hr IV BOLUS ONE Stop: 09/20/20 12:04 Last Infusion: 09/20/20 12:06 Dose: 0 mls/hr Documented by: Admin: 09/20/20 11:18 Dose: 1,000 mls/hr Documented by: ALISON Vital Signs Vital signs: Vital Signs - 8 hr 09/20/20 08:55 09/20/20 10:16 09/20/20 10:30 Temperature 99.6 F Pulse Rate 81 82 79 Respiratory Rate 18 Blood Pressure 134/74 126/75 Pulse Oximetry 96 98 98 09/20/20 11:00 Temperature Pulse Rate 72 Respiratory Rate Blood Pressure Pulse Oximetry 98 Medical Decision Making Medical Records Medical records reviewed: Yes I reviewed the patient's medical records. Lab Data Lab results reviewed: Yes I reviewed the patient's lab results. Result diagrams: 09/20/20 10:36 09/20/20 08:52 Labs: Lab Results 09/20/20 09/20/20 09/20/20 Range/Units 08:52 10:36 11:03 WBC 11.5 H (4.5-11.0) X10^3/uL RBC 3.68 L (4.5-5.9) X10^6/uL Hgb 11.6 L (13.5-17.5) g/dL Hct 36.0 L (41-53) % MCV 97.8 (80-100) fL MCH 31.6 (26-34) PG MCHC 32.3 (30-36) % RDW 15.7 H (11.6-14.8) % Plt Count 139 L (150-400) X10^3/uL Neut % (Auto) 64.7 (50-75) % Lymph % (Auto) 23.4 L (25-40) % [place] % (Auto) 10.2 (3-14) % Eos % (Auto) 0.3 L (2-4) % Baso % (Auto) 1.4 (0-2) % Neut # (Auto) 7400 H (6532-2336) /uL Lymph # (Auto) 2700 (4546-1350) /uL [place] # (Auto) 1200 H (0-900) /uL Eos # (Auto) 0 (0-450) /uL Baso # (Auto) 200 H (0-100) /uL Sodium 137 (137-145) mmol/L Potassium 4.2 (3.4-5.1) mmol/L Chloride 107 (98-107) mmol/L Carbon Dioxide 26 (22-32) mmol/L BUN 57 H (9-20) mg/dL Creatinine 3.07 H (0.66-1.25) mg/dL Estimated GFR 21.2 L (>60) mL/min BUN/Creatinine Ratio 18.6 (6-22) Glucose 135 H (70-100) mg/dL Calcium 9.3 (8.4-10.2) mg/dL Total Bilirubin 0.8 (0.2-1.3) mg/dL AST 44 (17-59) IU/L ALT 24 (<50) IU/L Alkaline Phosphatase 229 H (38-126) U/L Total Creatine Kinase 59 (55-170) U/L Total Protein 6.6 (6.3-8.2) g/dL Albumin 3.2 L (3.5-5.0) g/dL Globulin 3.4 (1.7-4.1) g/dL Albumin/Globulin Ratio 0.9 L (1.0-2.8) Lipase 32 (23-300) U/L SARS-CoV-2 (PCR) Negative (Negative) Urine Dip Bedside Urine Glucose Negative Bedside Urine Bilirubin - Negative Bedside Urine Ketone - Negative Urine Specific [place] 1.020 Bedside Urine Occult Blood - Negative Bedside Urine pH 6.0 Bedside Urine Protein - Negative Bedside Urine Urobilinogen - Negative Bedside Urine Nitrite - Negative Bedside Urine Leukocytes - Negative Esterase Point of care testing: Urine Dip Bedside Urine Glucose Negative Bedside Urine Bilirubin - Negative Bedside Urine Ketone - Negative Urine Specific [place] 1.020 Bedside Urine Occult Blood - Negative Bedside Urine pH 6.0 Bedside Urine Protein - Negative Bedside Urine Urobilinogen - Negative Bedside Urine Nitrite - Negative Bedside Urine Leukocytes - Negative Esterase Imaging Data CT scan - head: Radiologist's Impression: [address] [id number] Scan ReportSigned Patient: Earnest Wilks [facility]#: [id number]: 1965Acct:[id number]/Sex: 54 / MDate of Service: 09/20/20Loc: EDAccession Number: [id number] Procedure: CT head/brain wo con Ordering Provider: Juan F Bo D.O. PROCEDURE: CT HEAD/BRAIN WO CON INDICATIONS: fall yesterday and hit head TECHNIQUE: Noncontrast 4.5 mm thick angled axial sections acquired from the foramen magnum to the vertex, with coronal and sagittal reformats. For radiation dose reduction, the following was used: automated exposure control, adjustment of mA and/or kV according to patient size. COMPARISON: [facility], MR, MR BRAIN WITHOUT CONTRAST, 04/01/2018, 21:50. [facility], CT, CT HEAD/BRAIN WO CON, 06/26/2020, 2:50. FINDINGS: Image quality: Excellent. CSF spaces: Basal cisterns are patent. No extra-axial fluid collections. The ventricles are symmetric in size and shape. Brain: No intracranial bleeds or masses. There is cerebral volume loss for age, with resultant ventricular and sulcal prominence. There are mild periventricular and deep white matter chronic small vessel ischemic changes. Question old left pontine lacunar infarct versus artifact. Skull and face: Calvarium and visualized facial bones appear intact, without suspicious lesions. Sinuses: Visualized sinuses and mastoids are clear. IMPRESSION: 1. Age related volume loss and mild small vessel ischemic change. 2. No evidence acute stroke, hemorrhage, or mass. 3. No evidence of significant intracranial sequelae of acute trauma. Dictated by: Kenan Banuelos M.D. on 09/20/2020 at 10:00 Approved by: Kenan Banuelos M.D. on 09/20/2020 at 10:04 L tib/fib: Radiologist's Impression: [address] [id number] ReportSigned Patient: Earnest Wilks [facility]#: [id number]: 1965Acct:[id number]/Sex: 54 / MDate of Service: 09/20/20Loc: EDAccession Number: [id number] Procedure: XR tibia fibula LT 2V Ordering Provider: Juan F Bo D.O. PROCEDURE: XR TIBIA FIBULA RT 2V INDICATIONS: GLF WITH PAIN TECHNIQUE: 2 views of the tibia and fibula were acquired. COMPARISON: None. FINDINGS: Bones: Proximal fibular neck fracture. Question nondisplaced distal fibular fracture. No other fractures or dislocations seen. No suspicious bony lesions. Soft tissues: No suspicious soft tissue calcifications or masses. IMPRESSION: 1. Nondisplaced left fibular neck fracture. 2. Question distal fibular fracture. Comment: Consider left ankle plain films for further evaluation. Dictated by: Kenan Banuelos M.D. on 09/20/2020 at 10:19 Approved by: Kenan Banuelos M.D. on 09/20/2020 at 10:20 XR right tib/fin: Radiologist's Impression: [address] [id number] ReportSigned Patient: Earnest Wilks [facility]#: [id number]: 1965Acct:[id number]/Sex: 54 / MDate of Service: 09/20/20Loc: EDAccession Number: [id number] Procedure: XR tibia fibula RT 2V Ordering Provider: Juan F Bo D.O. PROCEDURE: XR TIBIA FUBULA RT 2V INDICATIONS: GLF WITH PAIN TECHNIQUE: 2 views of the tibia and fibula were acquired. COMPARISON: None. FINDINGS: Bones: Nondisplaced lateral malleolar fracture. Probable nondisplaced proximal fibular neck fracture. No other fractures or dislocations seen. No suspicious bony lesions. Soft tissues: No suspicious soft tissue calcifications or masses. IMPRESSION: 1. Nondisplaced lateral malleolar fracture. 2. Probable nondisplaced proximal fibular neck fracture. Comment: Consider right ankle plain films for further evaluation at the ankle. Dictated by: Kenan Banuelos M.D. on 09/20/2020 at 10:17 Approved by: Kenan Banuelos M.D. on 09/20/2020 at 10:19 CT - cervical spine: Radiologist's Impression: [address] [id number] Scan ReportSigned Patient: Earnest Wilks [facility]#: [id number]: 1965Acct:[id number]/Sex: 54 / MDate of Service: 09/20/20Loc: EDAccession Number: [id number] Procedure: CT cervical spine wo con Ordering Provider: Juan F Bo D.O. PROCEDURE: CT CERVICAL SPINE WO CON INDICATIONS: fall yesterday with midline pain TECHNIQUE: Noncontrast 3 mm thick sections acquired from the skull base to the T4 level. Sagittal and coronal reformats were then constructed. For radiation dose reduction, the following was used: automated exposure control, adjustment of mA and/or kV according to patient size. COMPARISON: [facility], CT, CT THORACIC SPINE WO CON, 09/20/2020, 9:37. [facility], CT, CT CERVICAL SPINE WO CON, 06/26/2020, 2:50. FINDINGS: Image quality: Excellent. Bones: No fractures or dislocations. There is minimal retrolisthesis of C 4 on C5. There is discectomy and anterior fusion at C5-C6. Severe degenerative disc disease at C4-C5. Visualized superior ribs are intact. Note is made of old proximal left clavicular fracture. Soft tissues: Prevertebral soft tissues are normal in thickness. No paravertebral hematomas. No apical pneumothoraces. IMPRESSION: 1. No fracture or dislocation in cervical spine. 2. Degenerative and postsurgical changes as described. 3. Old proximal left clavicular fracture. Dictated by: Sandi Rios M.D. on 09/20/2020 at 10:18 Approved by: Sandi Rios M.D. on 09/20/2020 at 10:[address]: Radiologist's Impression: [address] [id number] Scan ReportSigned Patient: Earnest Wilks [facility]#: [id number]: 1965Acct:[id number]/Sex: 54 / MDate of Service: 09/20/20Loc: EDAccession Number: [id number] Procedure: CT thoracic spine wo con Ordering Provider: Juan F Bo D.O. PROCEDURE: CT THORACIC SPINE WO CON INDICATIONS: fall down stairs with mid T spine pain TECHNIQUE: Noncontrast 3 mm thick sections acquired through the region of interest in the thoracic spine. Sagittal and coronal reformats were then constructed. For radiation dose reduction, the following was used: automated exposure control. COMPARISON: [facility], CT, CT THORACIC SPINE WITHOUT CONTRAST, 03/24/2018, 3:34. [facility], CT, CT ABDOMEN PELVIS WO CON, 07/26/2020, 7:59. FINDINGS: Image quality: Excellent. Bones: There is normal overall bony alignment. There are innumerable compression fractures, most which are chronic. On visualized levels, there are compression fractures involving T2, T3, T4, T5, T6, T7, T8, T9, T10, T11, T12, and L1. T9 may have a subacute component. Multiple old healed rib fractures involving posterior left ribs. No suspicious sclerotic or lytic bony lesions. Central spinal canal is of normal overall caliber. Soft tissues: No paravertebral masses or hematomas. Visualized posteromedial lungs appear clear. IMPRESSION: 1. There are innumerable chronic compression fractures in the thoracic spine, consistent with severe osteoporosis. 2. Question a subacute component involving T9. 3. Multiple old healed left posterior rib fractures. Comment: Consider multiple myeloma is in etiology in a patient with innumerable compression fractures. Additional comment: Consider thoracic spine MRI to evaluate whether there is any fracture acuity present. Dictated by: Kenan Banuelos M.D. on 09/20/2020 at 10:22 Approved by: Kenan Banuelos M.D. on 09/20/2020 at 10:30 CT lumbar: Radiologist's Impression: [address] [id number] Scan ReportSigned Patient: Earnest Wilks DMR#: [id number]: 1965Acct:[id number]/Sex: 54 / MDate of Service: 09/20/20Loc: EDAccession Number: [id number] Procedure: CT lumbar spine wo con Ordering Provider: Juan F Bo D.O. PROCEDURE: CT LUMBAR SPINE WO CON INDICATIONS: fall down stairs with lower lumbar pain TECHNIQUE: Noncontrast 3 mm thick sections acquired from the T12 level to the sacrum. Sagittal and coronal reformats were constructed. For radiation dose reduction, the following was used: automated exposure control. COMPARISON: [facility], CT, CT ABDOMEN PELVIS WO CON, 07/26/2020, 7:59. FINDINGS: Image quality: Excellent. Bones: There is normal bony alignment. No acute vertebral body compression fractures. There are extensive chronic compression fractures. There are chronic compressions of T12, L1, L3, L4, and L5, not significantly changed from the previous study. No suspicious lytic or blastic bony lesions. No pars defects. T12-L1: Borderline canal stenosis. No foraminal stenosis. L1-L2: No canal stenosis or foraminal stenosis. L2-L3: Disc bulge. Facet hypertrophy. Mild canal stenosis. No significant foraminal stenosis. L3-L4: Disc bulge. Facet hypertrophy. Mild canal stenosis. No significant foraminal stenosis. L4-L5: Disc bulge. Facet hypertrophy. Mild canal stenosis. Mild bilateral foraminal stenosis. L5-S1: Disc bulge. Facet hypertrophy. No significant canal stenosis. Mild bilateral foraminal stenosis. Soft tissues: No retroperitoneal masses or hematomas. Visualized aorta is normal in caliber. IMPRESSION: 1. There are numerous chronic compression fractures present. 2. No CT evidence of acute compression fractures. 3. Mild multilevel canal stenosis. Comment: In this patient with innumerable chronic compression fractures, consider multiple myeloma as a possible etiology. Additional comment: Lumbar spine MRI may be helpful to identify occult fracture acuity. Dictated by: Kenan Banuelos M.D. on 09/20/2020 at 10:30 Approved by: Kenan Banuelos M.D. on 09/20/2020 at 10:37 Right ankle: Radiologist's Impression: [address] [id number] ReportSigned Patient: Earnest Wilks DMR#: [id number]: 1965Acct:[id number]/Sex: 54 / MDate of Service: 09/20/20Loc: EDAccession Number: [id number] Procedure: XR ankle RT min 3V Ordering Provider: Juan F Bo D.O. PROCEDURE: XR ANKLE RT MIN 3V INDICATIONS: prob lat mal fx TECHNIQUE: 3 nonweightbearing views of the ankle were acquired. COMPARISON: None. FINDINGS: Bones: There is an oblique fracture of the distal fibular metaphysis at the level of the mortise joint with minimal displacement and likely mild comminution. A small minimally displaced avulsion fracture fragment is seen at the medial malleolar tip. Ankle mortise is normally aligned. No suspicious bony lesions. Mild degenerative changes are seen in the tarsometatarsal joints. Soft tissues: Soft tissue edema is seen surrounding the ankle. IMPRESSION: Minimally displaced bimalleolar fractures as described above. Dictated by: Hermann Montalvo M.D. on 09/20/2020 at 10:50 Approved by: Hermann Montalvo M.D. on 09/20/2020 at 10:52 L ankle: Radiologist's Impression: [address] [id number] ReportSigned Patient: Earnest Wilks [facility]#: [id number]: 1965Acct:[id number]/Sex: 54 / MDate of Service: 09/20/20Loc: EDAccession Number: [id number] Procedure: XR ankle LT min 3V Ordering Provider: Juan F Bo D.O. PROCEDURE: XR ANKLE LT MIN 3V INDICATIONS: prob lat mal fx TECHNIQUE: 3 nonweightbearing views of the ankle were acquired. COMPARISON: None. FINDINGS: Bones: There is a minimally displaced oblique fracture of the distal fibular metaphysis extending into the mortise joint. No definite additional left ankle fracture is seen. A small os trigonum is present. Soft tissues: Soft tissue edema is seen surrounding the ankle that is more prominent over the lateral malleolus. IMPRESSION: Minimally displaced intra-articular fracture of the lateral malleolus with overlying soft tissue edema. Dictated by: Hermann Montalvo M.D. on 09/20/2020 at 10:52 Approved by: Hermann Montalvo M.D. on 09/20/2020 at 10:55 ECG Data Attestation: I personally reviewed and interpreted this ECG as follows: Prior ECG tracings: not available for review Interpretation: Sinus rhythm Ventricular rate of 78 Normal axis Normal QRS Occasional PACs No ST T wave changes MDM Narrative Medical decision making narrative: Patient is alert oriented x3. Has a GCS of 15. Did have midline cervical spinal tenderness so a cervical collar was placed upon arrival. His C-spine CT is unremarkable. Had tenderness throughout his thoracic and lumbar spine. CT scans of these areas show multiple compression fractures however there does appear to be new were compression fracture at T9. He is tender over this area. His pelvis is stable. Does have bilateral lower extremity tenderness in x-rays do show fibula fractures and a medial malleolar fracture on the right. He is neurovascularly intact. He also has an increase in his creatinine today and. He did state that this about have been last evening around dinnertime knee has not had anything to eat or drink since then. I discussed the case with Dr. Austin with Internal Medicine who will admit for further evaluation. Also discussed the case with Dr. Barros on-call for orthopedics who will see the patient as a inpatient as well. Discussed the findings with the patient. He expressed understanding and agreement Discharge Plan Departure Patient Disposition: Admitted as Observation Clinical Impression: Acute kidney injury, Closed fracture of fibula, proximal, right, Closed fracture of distal end of right fibula, Fracture of medial malleolus of right tibia, Closed fracture of fibula, proximal, left, Closed fracture of distal end of left fibula, Compression fracture of T9 vertebra, Abrasion of skin Admit Date/Time: 09/20/20 11:16 Admit Provider: Arnoldo Austin
[2020-09-20] MEDS: HYDROMORPHONE 1 MG INJ IV ×2 (09:35→13:42)
--- NOTE | 2020-09-20 09:38 | PC.NURSE ---
verified changed route for dilauded IM.
--- NOTE | 2020-09-20 10:24 | DI.CT.S_ITS ---
PROCEDURE: CT CERVICAL SPINE WO CON INDICATIONS: fall yesterday with midline pain TECHNIQUE: Noncontrast 3 mm thick sections acquired from the skull base to the T4 level. Sagittal and coronal reformats were then constructed. For radiation dose reduction, the following was used: automated exposure control, adjustment of mA and/or kV according to patient size. COMPARISON: [facility], CT, CT THORACIC SPINE WO CON, 09/20/2020, 9:37. [facility], CT, CT CERVICAL SPINE WO CON, 06/26/2020, 2:50. FINDINGS: Image quality: Excellent. Bones: No fractures or dislocations. There is minimal retrolisthesis of C 4 on C5. There is discectomy and anterior fusion at C5-C6. Severe degenerative disc disease at C4-C5. Visualized superior ribs are intact. Note is made of old proximal left clavicular fracture. Soft tissues: Prevertebral soft tissues are normal in thickness. No paravertebral hematomas. No apical pneumothoraces. IMPRESSION: 1. No fracture or dislocation in cervical spine. 2. Degenerative and postsurgical changes as described. 3. Old proximal left clavicular fracture. Dictated by: Sandi Rios M.D. on 09/20/2020 at 10:18 Approved by: Sandi Rios M.D. on 09/20/2020 at 10:23
--- NOTE | 2020-09-20 10:28 | DI.RAD.S_ITS ---
PROCEDURE: XR ANKLE LT MIN 3V INDICATIONS: prob lat mal fx TECHNIQUE: 3 nonweightbearing views of the ankle were acquired. COMPARISON: None. FINDINGS: Bones: There is a minimally displaced oblique fracture of the distal fibular metaphysis extending into the mortise joint. No definite additional left ankle fracture is seen. A small os trigonum is present. Soft tissues: Soft tissue edema is seen surrounding the ankle that is more prominent over the lateral malleolus. IMPRESSION: Minimally displaced intra-articular fracture of the lateral malleolus with overlying soft tissue edema. Dictated by: Hermann Montalvo M.D. on 09/20/2020 at 10:52 Approved by: Hermann Montalvo M.D. on 09/20/2020 at 10:55
--- NOTE | 2020-09-20 10:28 | DI.RAD.S_ITS ---
PROCEDURE: XR ANKLE RT MIN 3V INDICATIONS: prob lat mal fx TECHNIQUE: 3 nonweightbearing views of the ankle were acquired. COMPARISON: None. FINDINGS: Bones: There is an oblique fracture of the distal fibular metaphysis at the level of the mortise joint with minimal displacement and likely mild comminution. A small minimally displaced avulsion fracture fragment is seen at the medial malleolar tip. Ankle mortise is normally aligned. No suspicious bony lesions. Mild degenerative changes are seen in the tarsometatarsal joints. Soft tissues: Soft tissue edema is seen surrounding the ankle. IMPRESSION: Minimally displaced bimalleolar fractures as described above. Dictated by: Hermann Montalvo M.D. on 09/20/2020 at 10:50 Approved by: Hermann Montalvo M.D. on 09/20/2020 at 10:52
--- NOTE | 2020-09-20 10:30 | PC.NURSE ---
1028 hours: Cervical collar removed on Dr Bo's orders.
[2020-09-20 10:43] LABS: Add Manual Diff / Slide Review NO; Basophils Absolute Auto 200 /uL (0-100); Basophils Percent Auto 1.4 % (0-2); Eosinophils Absolute Auto 0 /uL (0-450); Eosinophils Percent Auto 0.3 % (2-4); Hemoglobin 11.6 g/dL (13.5-17.5); Lymphocytes Absolute Auto 2700 /uL (1100-4500); Lymphocytes Percent Auto 23.4 % (25-40); Mean Corpuscular HGB Conc 32.3 % (30-36); Mean Corpuscular Hemoglobin 31.6 PG (26-34); Mean Corpuscular Volume 97.8 fL (80-100); Monocytes Absolute Auto 1200 /uL (0-900); Monocytes Percent Auto 10.2 % (3-14); Neutrophils Absolute Auto 7400 /uL (1500-7000); Neutrophils Percent Auto 64.7 % (50-75); Platelet Count 139 X10^3/uL (150-400); Red Blood Cell Count 3.68 X10^6/uL (4.5-5.9); Red Cell Distribution Width 15.7 % (11.6-14.8); White Blood Cell Count 11.5 X10^3/uL (4.5-11.0)
[2020-09-20 11:00] LABS: Alanine Aminotransferase 24 IU/L (<50); Albumin 3.2 g/dL (3.5-5.0); Albumin Globulin Ratio 0.9 (1.0-2.8); Alkaline Phosphatase 229 U/L (38-126); Aspartate Aminotransferase 44 IU/L (17-59); BUN Creatinine Ratio 18.6 (6-22); Bilirubin Total 0.8 mg/dL (0.2-1.3); Blood Urea Nitrogen 57 mg/dL (9-20); Calcium 9.3 mg/dL (8.4-10.2); Carbon Dioxide 26 mmol/L (22-32); Chloride 107 mmol/L (98-107); Creatine Kinase 59 U/L (55-170); Estimated Glomerular Filt Rate 21.2 mL/min (>60); Globulin 3.4 g/dL (1.7-4.1); Glucose 135 mg/dL (70-100); HEMOLYSIS 16 (0-50); Lipase 32 U/L (23-300); Potassium 4.2 mmol/L (3.4-5.1); Sodium 137 mmol/L (137-145); Total Protein 6.6 g/dL (6.3-8.2)
[2020-09-20] MEDS: SODIUM CHLORIDE 0.9% 1,000 ML 1000 ML IV (11:18)
[2020-09-20 11:48] LABS: COVID19 -Nasal RAPID Negative (Negative)
[2020-09-20] MEDS: HYDROMORPHONE 0.5 MG INJ 1 MG IV (12:03)
[2020-09-20] MEDS: SODIUM CHLORIDE 0.9% 1,000 ML 100 ML IV ×2 (13:42→22:33)
--- NOTE | 2020-09-20 14:34 | PC.ADMIT ---
[id number] Admission Note: VSS, lung sounds clear. Bowel tones are active in all 4 quadrants. Patient is on Tele: NS and normal saline at 100cc/hr. Patient has bilateral lower leg edema and swelling. Patient reports pain 7-8/10. 1mg IV dilaudid given. Bed is low and locked, patient educated about the use of call light, bed alarm is active. Patient is alert and orientated. The patient,Earnest Wilks,54 y/o, was given written information regarding hospital policies, unit procedures and contact persons. Patient's smoking status: Current some day smoker. Vital Signs - 8 hr 09/20/20 08:55 09/20/20 10:16 09/20/20 10:30 Temperature 99.6 F Pulse Rate 81 82 79 Respiratory Rate 18 Blood Pressure 134/74 126/75 Pulse Oximetry 96 98 98 09/20/20 11:00 09/20/20 11:30 09/20/20 13:02 Temperature 99.0 F Pulse Rate 72 72 74 Respiratory Rate 19 Blood Pressure 124/74 Pulse Oximetry 98 97 98 09/20/20 13:35 09/20/20 13:36 Temperature 99 F Pulse Rate 74 Respiratory Rate 19 Blood Pressure 124/74 Pulse Oximetry 98 98
[2020-09-20] MEDS: HYDROMORPHONE 2 MG INJ IV ×3 (14:49→22:32)
--- NOTE | 2020-09-20 14:53 | P.HP_ITS ---
History of Present Illness History of Present Illness Date Patient Seen: 09/20/20 Time Patient Seen: 14:53 Chief complaint: extreme pain Hx liver Transplant Narrative: Earnest Wilks is a 54-year-old male with history alcoholic cirrhosis complicated by hep C, status post liver transplant at in 2011, CKD stage III, hypertension, GUILLE, gout, depression, GERD, and osteoporosis who presented to the emergency room with significant pain after a syncopal episode at home. Patient has had issues with orthostatic hypotension in the past, usually when he gets dizzy it improves with resting. Last evening he was in the kitchen in his RV making dinner when he got dizzy, he then cannot remember what happened but woke up in his stairwell with pain. He believes he hit his chin and head. He was unable to walk after due to LE pain on both sides. He got help from a neighbor and was able to crawl into bed and slept overnight but still could not ambulate due to pain this AM in both legs. He called EMS and was brought in for further evaluation. He has been having difficulty with his chronic pain, recently asked his provider to increase his fentanyl patch from 25 to 50 mcg as he continued to have chronic back pain and fatigue. Denies fever, chest pain, shortness of roger ath, cough, dyspnea on exertion recently. Denies palpitations. Weight has been intentionally decreasing. No decrease in oral intake recently, no medication changes, no urinary frequency or difficulties voiding. In the emergency room, patient's vital signs were unremarkable. Labs were notable for a mild leukocytosis at 11.5, stable hemoglobin from prior labs at 11.6, chronic thrombocytopenia with platelets at baseline at 139. Initial chemistries revealed a creatinine of 3.07 up from his prior admission of 1.8. Repeat obtained after 1L fluid bolus which improved to 2.84. Outpatient review reveals a probable baseline of above 2 but not entirely clear. He had an extensive imaging evaluations including noncontrast CT head which was unremarkable, CT scan of his entire spine which revealed multiple chronic compression fractures of the T and L spines, with a possible subacute component to a T9 compression fracture. C-spine did not show any compression fractures but did show a left clavicular fracture which is old. X-rays of his bilateral lower extremities revealed a left lateral malleolar fracture, and right ankle bimalleolar fractures. Orthopedics was contacted reportedly in the ER, pending formal evaluation. Admitted to medicine under observation status at this time for SANDY pending orthopedic surgery consultation. Patient History Medical History Cirrhosis of liver CKD (chronic kidney disease) Compression fracture Depression GERD (gastroesophageal reflux disease) Gout Hepatitis C Hypertension Liver cancer GUILLE (obstructive sleep apnea) Osteoporosis Surgical History H/O right wrist surgery History of right hip replacement Liver transplant recipient Presence of left artificial elbow joint Family & Social History Family History Mother Renal failure Father Diabetes mellitus Congestive heart failure Social History: household members none Prior Living Arrangements RV Safety & Behavioral: Feels Safe in Current Yes Environment Been Physically Hurt or No Threatened By a Person Suicidal Ideation Description None Suicide Plan Description No Plan Tobacco & Substance use: Tobacco type cigarettes Smoking Status Current some day smoker alcohol intake former alcohol intake frequency a few times a week Substance Use Type marijuana Meds Home Medications and Allergies Home Medications Medication Instructions Recorded Confirmed Type Narcan 1 spray INTRANASAL NOW PRN 01/14/20 07/26/20 History Kellie-Ramila 1 tab PO DAILY 01/14/20 09/20/20 History acetaminophen [Tylenol] 650 mg PO PRN PRN 01/14/20 09/20/20 History allopurinol 100 mg PO DAILY 01/14/20 09/20/20 History cyclobenzaprine 10 mg PO PRN PRN 01/14/20 09/20/20 History cyclosporine modified 25 mg PO BID 01/14/20 09/20/20 History docusate sodium 250 mg PO PRN PRN 01/14/20 09/20/20 History duloxetine [Cymbalta] 20 mg PO DAILY 01/14/20 09/20/20 History fentanyl [Duragesic] See Rx Instructions .ROUTE .COMPLEX 01/14/20 09/20/20 History gabapentin 300 mg PO BID 01/14/20 09/20/20 History hydroxyzine pamoate [Vistaril] 25 mg PO BEDTIME PRN 01/14/20 09/20/20 History lidocaine [Lidoderm] 1 patch TOPICAL DAILY 01/14/20 09/20/20 History metoprolol succinate 25 mg PO DAILY 01/14/20 09/20/20 History mycophenolate mofetil [CellCept] 500 mg PO BID 01/14/20 09/20/20 History ondansetron HCl [Zofran] 4 mg PO Q8H PRN 01/14/20 07/26/20 History pyridoxine (vitamin B6) 100 mg PO DAILY 01/14/20 09/20/20 History quetiapine [Seroquel] 25 mg PO BEDTIME 01/14/20 09/20/20 History ursodiol 300 mg PO BID 01/14/20 09/20/20 History ondansetron 4 mg PO TID-QID PRN #10 tab 05/14/20 09/20/20 Rx pantoprazole [Protonix] 40 mg PO DAILY #30 tab 05/14/20 09/20/20 Rx furosemide 20 mg PO DAILY 07/26/20 09/20/20 History rifaximin [Xifaxan] 550 mg PO BID 09/20/20 09/20/20 History Allergies Allergy/AdvReac Type Severity Reaction Status Date / Time codeine Allergy Severe Vomiting Verified 06/26/20 10:11 NSAIDS (Non-Steroidal Allergy Severe Abdominal Verified 06/26/20 10:09 Anti-Inflamma Pain venom-honey bee Allergy Severe Wheezing Verified 06/26/20 10:11 [BEE VENOM (HONEY BEE)] dextromethorphan AdvReac Severe Seizure Verified 06/26/20 10:09 copper AdvReac Intermediate Verified 06/26/20 10:09 morphine AdvReac Intermediate Vomiting Verified 06/26/20 10:09 oxycodone AdvReac Intermediate Vomiting Verified 06/26/20 10:09 tizanidine AdvReac Unknown Verified 06/26/20 10:09 adhesive tape AdvReac Verified 06/26/20 10:09 pseudoephedrine AdvReac Verified 01/14/20 21:48 NYQUIL Allergy Unknown Uncoded 05/14/20 01:38 Review of Systems Review of Systems Narrative: All other systems reviewed with the patient and are negative unless otherwise stated. Exam Vital Signs (past 8 hours): - 09/20/20 08:55 09/20/20 10:16 09/20/20 10:30 Temperature 99.6 F Pulse Rate 81 82 79 Respiratory Rate 18 Blood Pressure 134/74 126/75 Pulse Oximetry 96 98 98 02/08/21 11:00 09/20/20 11:30 09/20/20 13:02 Temperature 99.0 F Pulse Rate 72 72 74 Respiratory Rate 19 Blood Pressure 124/74 Pulse Oximetry 98 97 98 09/20/20 13:35 09/20/20 13:36 Temperature 99 F Pulse Rate 74 Respiratory Rate 19 Blood Pressure 124/74 Pulse Oximetry 98 98 Oxygen Delivery Method Room Air Oxygen Flow Rate 0 Narrative Exam Narrative: GENERAL APPEARANCE: Well developed, well nourished, moderate discomfort due to pain with frequent spasm. SKIN: Inspection of the skin reveals no rashes, ulcerations or petechiae. HEENT: oropharynx is clear and mucous membranes are moist, neck is supple without adenopathy NECK: Supple and symmetric. There was no thyroid enlargement, and no tenderness, or masses were felt. CHEST: Normal AP diameter and normal contour without any kyphoscoliosis. LUNGS: Auscultation of the lungs revealed no wheezes, rhonchi, or rales. CARDIOVASCULAR: There was a regular rate and rhythm without any murmurs, gallops, rubs. Peripheral pulses were 2+ and symmetric. ABDOMEN: Soft and nontender with normal bowel sounds. No ascites was noted. MUSCULOSKELETAL: bilateral ankle and lower leg tenderness. EXTREMITIES: No cyanosis, clubbing. Mild bilateral LE swelling. NEUROLOGIC: Alert and oriented x 3. Normal affect. Sensation intact bilateral lower extremities. Objective ECG Impression: Sinus rhythm with PAC. no significant changes compared to previous tracings, TWI in V2 unchanged since prior. Labs Result Diagrams: 09/20/20 10:36 09/20/20 15:10 Labs: Laboratory Results - last 24 hr 09/20/20 09/20/20 09/20/20 08:52 10:36 11:03 WBC 11.5 H RBC 3.68 L Hgb 11.6 L Hct 36.0 L MCV 97.8 MCH 31.6 MCHC 32.3 RDW 15.7 H Plt Count 139 L Neut % (Auto) 64.7 Lymph % (Auto) 23.4 L [place] % (Auto) 10.2 Eos % (Auto) 0.3 L Baso % (Auto) 1.4 Neut # (Auto) 7400 H Lymph # (Auto) 2700 [place] # (Auto) 1200 H Eos # (Auto) 0 Baso # (Auto) 200 H Sodium 137 Potassium 4.2 Chloride 107 Carbon Dioxide 26 BUN 57 H Creatinine 3.07 H Estimated GFR 21.2 L BUN/Creatinine Ratio 18.6 Glucose 135 H Calcium 9.3 Total Bilirubin 0.8 AST 44 ALT 24 Alkaline Phosphatase 229 H Total Creatine Kinase 59 Total Protein 6.6 Albumin 3.2 L Globulin 3.4 Albumin/Globulin Ratio 0.9 L Lipase 32 SARS-CoV-2 (PCR) Negative Assessment & Plan Assessment & Plan narrative: Earnest Wilks is a 54-year-old male with history alcoholic cirrhosis complicated by hep C, status post liver transplant at in 2011, CKD stage III, hypertension, GUILLE, gout, depression, GERD, and osteoporosis who presented to the emergency room with significant pain after a syncopal episode at home. 1. Syncope - suspect orthostatic nature given history. EKG unchanged compared to previous. Will continue telemetery. - continue fluids, check orthostatics after orthopedic evaluation if able. Will hold home lasix for now. 2. acute left lateral malleolar fracture and right bimalleolar fractures, present on admission. - orthopedic surgery contacted in the emergency room, pending evaluation. Continue NPO for now with IV dilaudid, increased fentanyl patch, and valium IV f or spasm. 3. osteoporosis with multiple chronic compression fractures, possible acute T9 compression fracture - continue pain management as noted above. - PT/OT evaluation after orthopedic surgery consultation. 4. SANDY on CKD stage III - admission cr 3.07 improved slightly after fluids. May be secondary to mild dehydration given presentation. CK unremarkable on admission labs. - continue to follow creatinine, IV fluids for now, hold home lasix. - will hold allopurinol pending further improvement in creatinine, likely resume tomorrow. 5. alcoholic and hep C cirrhosis s/p liver transplant, chronic, stable - Continue current medications - will hold lactulose, continue home rifaximin. - continue cellcept, cyclosporine, ursodiol. 6. HTN - patient hypertensive on admission, taking metoprolol and lasix on admission. Will hold lasix, resume home metoprolol and give today's dose as he reports not taking his morning medications. May need future adjustments. 7. GERD, chronic, stable - continue home PPI 8. GUILLE, chronic - continue to monitor, can use home CPAP machine if available. 9. Chronic low back pain - have increased home fentanyl patch to 50 mcg, pain management as noted above. Code: Full, as discussed with patient, surrogate decision maker is Leigh Guidry. Dispo: Admit under observation, pending orthopedic surgery evaluation. Depending on orthopedics, PT/OT evaluation. Possible SNF. Quality VTE Deep Vein Thrombosis/Pulmonary Embolism Present on Admission: No
[2020-09-20 15:34] LABS: Blood Urea Nitrogen 54 mg/dL (9-20); Calcium 8.3 mg/dL (8.4-10.2); Carbon Dioxide 29 mmol/L (22-32); Chloride 108 mmol/L (98-107); Estimated Glomerular Filt Rate 23.2 mL/min (>60); Glucose 120 mg/dL (70-100); HEMOLYSIS < 15 (0-50); Potassium 4.2 mmol/L (3.4-5.1); Sodium 137 mmol/L (137-145)
[2020-09-20] MEDS: fentaNYL 50 MCG/PATCH TOP (16:33)
[2020-09-20] MEDS: diazePAM 10 MG/2 ML SYRINGE 2 MG IV ×2 (16:33→20:42)
[2020-09-20] MEDS: MYCOPHENOLATE MOFETIL 500 MG TABLET PO (20:42)
[2020-09-20] MEDS: GABAPENTIN 300 MG CAPSULE PO (20:42)
[2020-09-20] MEDS: RIFAXIMIN 550 MG TABLET PO (20:42)
[2020-09-20] MEDS: ursodioL 300 MG CAPSULE PO (20:43)
[2020-09-21] VITALS (14 sets, daily range): BP systolic 110–136; BP diastolic 53–75; PULSE 60–85; RESP 14–18; TEMP 36.4–37.5; O2SAT 95–99
[2020-09-21] MEDS: HYDROMORPHONE 2 MG INJ IV ×7 (02:17→22:08)
[2020-09-21] MEDS: SODIUM CHLORIDE 0.9% 1,000 ML 100 ML IV ×2 (07:03→18:50)
[2020-09-21] MEDS: diazePAM 10 MG/2 ML SYRINGE 2 MG IV ×3 (07:04→18:10)
[2020-09-21] MEDS: PYRIDOXINE (VITAMIN B6) 50 MG TABLET 100 MG PO (08:44)
[2020-09-21] MEDS: NEPHRO-VITE RX TABLET 1 TAB PO (08:44)
[2020-09-21] MEDS: GABAPENTIN 300 MG CAPSULE PO ×2 (08:44→20:26)
[2020-09-21] MEDS: MYCOPHENOLATE MOFETIL 500 MG TABLET PO ×2 (08:44→20:26)
[2020-09-21] MEDS: PANTOPRAZOLE 40 MG TABLET PO (08:44)
[2020-09-21] MEDS: ursodioL 300 MG CAPSULE PO ×2 (08:44→20:26)
[2020-09-21] MEDS: RIFAXIMIN 550 MG TABLET PO ×2 (08:44→20:25)
[2020-09-21] MEDS: LIDOCAINE PATCH 1 EACH ADH..PATCH TOP (08:45)
[2020-09-21 08:51] LABS: Add Manual Diff / Slide Review NO; Basophils Absolute Auto 100 /uL (0-100); Basophils Percent Auto 0.5 % (0-2); Eosinophils Absolute Auto 100 /uL (0-450); Eosinophils Percent Auto 0.9 % (2-4); Hematocrit 34.2 % (41-53); Hemoglobin 10.9 g/dL (13.5-17.5); Lymphocytes Absolute Auto 4000 /uL (1100-4500); Lymphocytes Percent Auto 37.2 % (25-40); Mean Corpuscular HGB Conc 31.9 % (30-36); Mean Corpuscular Hemoglobin 31.6 PG (26-34); Mean Corpuscular Volume 99.2 fL (80-100); Monocytes Absolute Auto 1300 /uL (0-900); Monocytes Percent Auto 12.2 % (3-14); Neutrophils Absolute Auto 5200 /uL (1500-7000); Neutrophils Percent Auto 49.2 % (50-75); Platelet Count 125 X10^3/uL (150-400); Red Blood Cell Count 3.44 X10^6/uL (4.5-5.9); Red Cell Distribution Width 16.1 % (11.6-14.8); White Blood Cell Count 10.6 X10^3/uL (4.5-11.0)
[2020-09-21 08:55] LABS: Alanine Aminotransferase 20 IU/L (<50); Albumin 3.1 g/dL (3.5-5.0); Albumin Globulin Ratio 0.9 (1.0-2.8); Alkaline Phosphatase 210 U/L (38-126); Aspartate Aminotransferase 35 IU/L (17-59); BUN Creatinine Ratio 20.4 (6-22); Bilirubin Total 1.7 mg/dL (0.2-1.3); Blood Urea Nitrogen 53 mg/dL (9-20); Calcium 7.9 mg/dL (8.4-10.2); Carbon Dioxide 28 mmol/L (22-32); Chloride 102 mmol/L (98-107); Estimated Glomerular Filt Rate 25.7 mL/min (>60); Globulin 3.3 g/dL (1.7-4.1); Glucose 140 mg/dL (70-100); HEMOLYSIS < 15 (0-50); Potassium 4.1 mmol/L (3.4-5.1); Sodium 133 mmol/L (137-145); Total Protein 6.4 g/dL (6.3-8.2)
[2020-09-21] MEDS: DULOXETINE 20 MG CAPSULE PO (08:55)
--- NOTE | 2020-09-21 10:39 | DI.MRI.S_ITS ---
PROCEDURE: MR THORACIC SPINE WO CON INDICATIONS: LE weakness multiple compression fx. TECHNIQUE: Noncontrast sagittal T1 spine echo and T2 fast spin echo, sagittal STIR, axial T1 and T2 fast spin echo through the thoracic spine. COMPARISON: [facility], , T-SPINE WITHOUT CONTRAST, 05/10/2015, 7:12. FINDINGS: Image quality: This examination is limited by involuntary motion artifact. Alignment and Curvature: There is normal bony alignment. Bone Marrow: Marrow is of normal overall signal. Several midthoracic anterior wedge deformities are seen,3 yet without abnormal Sir signal to suggest acute or subacute fracture. These are overall progressed compared to 2014. Spinal Cord: Visualized spinal cord is normal in size and signal. Paraspinous Soft Tissues: No paravertebral masses. Miscellaneous: Generalized degenerative changes are seen, which are most prominent inferiorly. At the T12-L1 level, there is likely mild to moderate central canal narrowing seen. Milder degenerative changes are seen elsewhere. IMPRESSION: Limited study demonstrating multiple sites of thoracic spine compression deformity, yet without acute or subacute features. Degenerative changes are seen, which are worst inferiorly. Dictated by: Mitchell Hernandez M.D. on 09/21/2020 at 14:25 Approved by: Mitchell Hernandez M.D. on 09/21/2020 at 14:27
--- NOTE | 2020-09-21 10:48 | CM.DANOTE ---
Addendum entered by Lara Finley R.N. 09/21/20 13:16: Sent a referral to [facility] as well, left message with Nery. Addendum entered by Lara Finley R.N. 09/21/20 12:38: Vee at [facility] called back and indicated that they do not take Reza. Also, Kateryna from [facility] called back, and stated, they may not have any beds this week, definately not for tomorrow. Let her know that it is anticipated that patient may be here for a few days, for he is awaiting surgery consult. [facility], or [facility]. Original Note: DCP: Case received, EMR reviewed and met with patient. Introduced self and role. Was able to obtain information from patient regarding his current living situation, as well as baseline activity level prior to hospitalization. DCP assessment completed with information currently available. Patient is a 54 year old male who admitted yesterday morning to the care of the hospitalist team. PCP: Dr. Rowley. Payer: confirmed: [employer] [facility]. Patient came to the hospital via ambulance secondary to a ground level fall sustained in his home. According to notes, patient had a syncopal episode, and tripped on a couple of steps from his RV. He was able to call 911. He sustained acute left lateral malleolar fracture, as well as right malleolar fractors as well. Patient will be having a surgical consult today for surgery. Patient has history of liver transplant several years ago, and used to use alcohol. Met with patient in his room. He is alert and oriented. He resides in an , lives alone, He has been here before, and at one time had [employer], which he no longer has. He does have JUSTICE caregiver through [facility]. Patient indicated that they come in 2-3 times a week, help with cleaning, laundry, meals if needed. He has a sister that lives in [place]. Patient may most likely need fpc. Discussed with patient, and gave him a Medicare Choice List. He has Reza/Medicaid, and patient indicated, he would rather go here in town if he needs it. Let him know that due to his insurance, [facility] may not accept. Had spoken to Kateryna yesterday, at [facility]. She indicated that they may be able to do a carve out, depending upon P.T. notes. Left Jaz in admissions at [facility] a message yesterday, she was not in the office yesterday. have not yet heard back. Went ahead and faxed referral to [facility], [facility], and [facility]. Have a message out to January at [facility]. P: DCP to continue to follow closely. Patient may either have surgery this pm, or tomorrow. After surgery, he should be able to work with P.T, for notes will be needed for insurance purposes. Will continue to follow up on referrals. Lara Finley RN/[employer]
--- NOTE | 2020-09-21 11:05 | DI.MRI.S_ITS ---
PROCEDURE: MR LUMBAR SPINE WO CON INDICATIONS: multiple compression fx, LE weakness TECHNIQUE: Noncontrast sagittal T1 spin echo and T2 fast echo, sagittal STIR, axial T1 and T2 fast spin echo through the lumbar spine. In cases with scoliosis, additional coronal T2 fast spin echo may be performed. COMPARISON: [facility], MR, MR LUMBAR SPINE WITHOUT CONTRAST, 10/04/2017, 15:47. [facility], MR, MR THORACIC SPINE WO CON, 09/21/2020, 14:41. [facility], MR, LUMBAR SPINE W/O CONTRAST, 04/15/2014, 11:52. FINDINGS: Image quality: This examination is limited by involuntary motion artifact. Images repeated, yet without significant improvement. Alignment and Curvature: There is normal bony alignment. Bone Marrow: Marrow is of normal overall signal. Multiple levels of compression deformity are seen, which are similar to 2018, although progressed at the L4 level. On STIR images, no significant bone marrow edema is seen to suggest an acute or subacute fracture. Spinal Cord: Conus medullaris terminates at the L1 level. Visualized cord demonstrates normal signal and size. Paraspinous Soft Tissues: No paravertebral masses. T12-L1: Moderate loss of disc height is seen. Loss of disc signal is seen. Moderate generalized disc bulge is seen. Moderate bilateral neural foraminal narrowing is seen. At least moderate central canal narrowing is seen. L1-L2: Moderate loss of disc height is seen. Loss of disc signal is seen. Moderate generalized disc bulge is seen. Moderate bilateral neural foraminal narrowing is seen. At least moderate central canal narrowing is seen. L2-L3: The disc height is well-preserved. Loss of disc signal is seen at this level. Moderate disc bulge is seen, with a central disc protrusion. Moderate facet joint hypertrophy is seen. There is at least moderate bilateral neural foraminal narrowing seen. Moderate to severe central canal narrowing is seen. L3-L4: The disc height is well-preserved. Loss of disc signal is seen at this level. At least moderate disc bulge is seen, with a central disc protrusion. Moderate facet joint hypertrophy is seen. Moderate to severe bilateral neural foraminal narrowing can be seen. There is a degree of compression seen upon the exiting nerve roots. Moderate central canal narrowing is seen. L4-L5: The disc height is well-preserved. Loss of disc signal is seen at this level. At least moderate disc bulge is seen, with a central disc protrusion. At least moderate facet hypertrophy is seen. Moderate to severe bilateral neural foraminal narrowing is seen, with associated compression upon the exiting L4 nerve roots. Moderate central canal narrowing is seen. L5-S1: The disc height is well-preserved. Loss of disc signal is seen at this level. Moderate generalized disc bulge is seen. Moderate facet joint hypertrophy is seen. Moderate to severe bilateral neural foraminal narrowing can be seen. Mild to moderate central canal narrowing is seen. IMPRESSION: Multiple levels of compression deformity are seen, yet without acute features. Degenerative changes are seen throughout, which overall appear mildly progressed compared to 2018. Please note that on the current study, there is prominent motion artifact, which tends to exaggerate the perceived degree of stenosis. Dictated by: Mitchell Hernandez M.D. on 09/21/2020 at 14:33 Approved by: Mitchell Hernandez M.D. on 09/21/2020 at 14:38
--- NOTE | 2020-09-21 14:32 | PT-IP ANOTE ---
received PT order for a L western ankle boot for pt from ortho . reviewed EMR and pt has bilateral malleolar fracture. Nurse stated that pt will be getting and MRI and pt will be going for surgery tomorrow for R ankle. informed nurse that PT will hold off on L ankle boot at this time and will provide one after surgery where PT can do a full assessment and not just dispense the boot. Nurse agreed.
--- NOTE | 2020-09-21 14:36 | PC.NURSE ---
Day shift: Pt off unit for MRI at approx 1437. Per special technical operations officer Pt will be back in approx 1 hour.
--- NOTE | 2020-09-21 14:39 | PC.NURSE ---
Day shift: Pt off tele now and SL as well.
--- NOTE | 2020-09-21 15:06 | PT-IP ANOTE ---
Talked with Dr. Austin and agreed to d/c PT order at this time. informed Dr. Austin that PT will provide L ankle western boot after surgery for a more appropriate eval will be conducted and not just PT dispensing an equipement to pt. Dr. Austin agreed and stated that pt will not get out of bed at this time. will f/u on pt after surgery. will d/c PT order at this time.
--- NOTE | 2020-09-21 15:22 | CM.DPC ---
Addendum entered by Lara Finley R.N. 09/21/20 15:32: Called [facility] to inquire who patient's JUSTICE Public Message Service Supervisor is. Stated that it is [facility]. Her phone number is: [phone]. Original Note: DCP Cont: Natacha from [facility] called back. Stated, she was going to potentially accept patient, but has concerns about some criminal background information that she had access to. Stated, she has worked with [facility] before, and other facility should be able to get a carve out for P.TDinh Sebastian at [facility] called back. Stated she reviewed, and will follow. They have openings, she would just have to work on getting authorization with [facility], and patient will need P.T. notes. P: DCP to continue to follow. [facility] Sood has not yet called back, [facility] may not have a bed this week, [facility] could possibly accept. Lara Finley RN/Head Machinist
--- NOTE | 2020-09-21 16:03 | P.PN_ITS ---
Subjective Subjective Date Patient Seen: 09/21/20 Time Patient Seen: 16:04 Interval history: Earnest Wilks is a 54-year-old male with history alcoholic cirrhosis complicated by hep C, status post liver transplant at in 2011, CKD stage III, hypertension, GUILLE, gout, depression, GERD, and osteoporosis who presented to the emergency room with significant pain after a syncopal episode at home. Admitted with bilateral malleolar ankle fractures. Orthopedics plans to perform surgery tomorrow on his R ankle, L ankle can be placed in a boot. Orthopedic surgery requested MR imaging of his T and L spines today as well, which showed progression of chronic disease. orthopedics possibly to recommend back bracing given the deformities, pending official recommendations. Patient reports controlled pain today with increased fentanyl patch and dilaudid. Can add oral oxycodone as surgery is now planned for tomorrow. Exam Vital Signs (past 8 hours): - 09/21/20 10:07 09/21/20 11:56 09/21/20 14:05 Temperature 98.1 F Pulse Rate 71 75 Respiratory Rate 15 Blood Pressure 110/59 L 115/53 L Pulse Oximetry 96 97 09/21/20 14:41 09/21/20 15:40 Temperature 98.4 F Pulse Rate 60 85 Respiratory Rate 14 18 Blood Pressure 127/68 Pulse Oximetry 98 Oxygen Delivery Method Room Air Oxygen Flow Rate 0 Narrative Exam Narrative: GENERAL APPEARANCE: Well developed, well nourished, moderate discomfort due to pain with frequent spasm. SKIN: Inspection of the skin reveals no rashes, ulcerations or petechiae. HEENT: oropharynx is clear and mucous membranes are moist, neck is supple without adenopathy NECK: Supple and symmetric. There was no thyroid enlargement, and no tenderness, or masses were felt. CHEST: Normal AP diameter and normal contour without any kyphoscoliosis. LUNGS: Auscultation of the lungs revealed no wheezes, rhonchi, or rales. CARDIOVASCULAR: There was a regular rate and rhythm without any murmurs, gallops, rubs. Peripheral pulses were 2+ and symmetric. ABDOMEN: Soft and nontender with normal bowel sounds. No ascites was noted. MUSCULOSKELETAL: bilateral ankle and lower leg tenderness. EXTREMITIES: No cyanosis, clubbing. Mild bilateral LE swelling. NEUROLOGIC: Alert and oriented x 3. Normal affect. Sensation intact bilateral lower extremities. Objective Labs Result Diagrams: 09/21/20 08:19 09/21/20 08:19 Labs: Laboratory Results - last 24 hr 09/21/20 09/21/20 08:19 08:19 WBC 10.6 RBC 3.44 L Hgb 10.9 L Hct 34.2 L MCV 99.2 MCH 31.6 MCHC 31.9 RDW 16.1 H Plt Count 125 L Neut % (Auto) 49.2 L Lymph % (Auto) 37.2 [place] % (Auto) 12.2 Eos % (Auto) 0.9 L Baso % (Auto) 0.5 Neut # (Auto) 5200 Lymph # (Auto) 4000 [place] # (Auto) 1300 H Eos # (Auto) 100 Baso # (Auto) 100 Sodium 133 L Potassium 4.1 Chloride 102 Carbon Dioxide 28 BUN 53 H Creatinine 2.60 H Estimated GFR 25.7 L BUN/Creatinine Ratio 20.4 Glucose 140 H Calcium 7.9 L Total Bilirubin 1.7 H AST 35 ALT 20 Alkaline Phosphatase 210 H Total Protein 6.4 Albumin 3.1 L Globulin 3.3 Albumin/Globulin Ratio 0.9 L PFSH Medical History Cirrhosis of liver CKD (chronic kidney disease) Compression fracture Depression GERD (gastroesophageal reflux disease) Gout Hepatitis C Hypertension Liver cancer GUILLE (obstructive sleep apnea) Osteoporosis Surgical History H/O right wrist surgery History of right hip replacement Liver transplant recipient Presence of left artificial elbow joint Family History Mother Renal failure Father Diabetes mellitus Congestive heart failure Social History household members: none Smoking Status: Current some day smoker alcohol intake: former Assessment & Plan Assessment & Plan narrative: Earnest Wilks is a 54-year-old male with history alcoholic cirrhosis complicated by hep C, status post liver transplant at in 2011, CKD stage III, hypertension, GUILLE, gout, depression, GERD, and osteoporosis who presented to the emergency room with significant pain after a syncopal episode at home. Admitted with SANDY on CKD and bilateral ankle fractures, pending operative interventions tomorrow with orthopedic surgery. 1. Syncope - suspect orthostatic nature given history. EKG unchanged compared to previous. Will continue telemetery for now, no abnormalities thus far. - continue fluids today, check orthostatics after orthopedic interventions Will hold home lasix for now given improvement thus far with his creatinine. 2. acute left lateral malleolar fracture and right bimalleolar fractures, present on admission. - orthopedic surgery contacted in the emergency room, pending formal juan mmendations but tenatively scheduled for OR tomorrow for the R ankle with Dr. Barros. L ankle likely to be in a brace. Pain control with oral oxycodone, IV dilaudid, increased fentanyl patch, and valium IV for spasm given his significant opiate tolerance. 3. osteoporosis with multiple chronic compression fractures - continue pain management as noted above. - PT/OT evaluation after orthopedic surgery consultation. Possible brace per discussion with Dr. Barros today. - fentanyl patch increased from 25 mg to 50 mg yesterday. Has 25 mg at home but has been requesting increased dosing from PMD. 4. SANDY on CKD stage III - admission cr 3.07 improved slightly after fluids. Now to 2.6. May be seco ndary to mild dehydration given presentation. CK unremarkable on admission labs. - continue to follow creatinine, IV fluids for now, hold home lasix. Last known Creatinine was 1.8. Unclear baseline as previously reported baseline per [facility] records of 2.6. - will hold allopurinol pending further improvement in creatinine, likely resume after OR. 5. alcoholic and hep C cirrhosis s/p liver transplant, chronic, stable - Continue current medications - will hold lactulose, continue home rifaximin. - continue cellcept, cyclosporine, ursodiol. 6. HTN - patient hypertensive on admission, taking metoprolol and lasix on admission. Will hold lasix, resume home metoprolol. May need future adjustments. 7. GERD, chronic, stable - continue home PPI 8. GUILLE, chronic - continue to monitor, can use home CPAP machine if available. 9. Chronic low back pain - have increased home fentanyl patch to 50 mcg, pain management as noted above. 10 acute severe protein calorie malnutrition - appreciate auctioneer automobile consultation - continue nutritional supplementation. Malnutrition places patient at higher risk for complications from surgery, and likely contributed to risk of osteoporosis and fractures. Code: Full, as discussed with patient, surrogate decision maker is Leigh Guidry. Dispo: Changed to inpatient. PT/OT evaluation. Possible SNF. Quality VTE Deep Vein Thrombosis/Pulmonary Embolism Present on Admission: No
--- NOTE | 2020-09-21 19:16 | PM.HP.1 ---
History of Present Illness History of Present Illness Date Patient Seen: 09/21/20 Time Patient Seen: 12:17 Chief complaint: extreme pain Hx liver Transplant Narrative: this is a 54-year-old gentleman who had a syncopal episode and noted the acute onset of bilateral ankle and significant spine pain. He has a complex past medical history with a history of a liver transplant and known impaired renal function. He was admitted to the hospital service. He was evaluated in the emergency room noted to have significant to severe back pain and bilateral ankle pain. He also had a history of a syncopal episode about 3 months ago. He has been on the medicine service and has been stabilized. Patient History Medical History Cirrhosis of liver CKD (chronic kidney disease) Compression fracture Depression GERD (gastroesophageal reflux disease) Gout Hepatitis C Hypertension Liver cancer GUILLE (obstructive sleep apnea) Osteoporosis Surgical History H/O right wrist surgery History of right hip replacement Liver transplant recipient Presence of left artificial elbow joint Family & Social History Family History Mother Renal failure Father Diabetes mellitus Congestive heart failure Social History: household members none Prior Living Arrangements RV Safety & Behavioral: Feels Safe in Current Yes Environment Been Physically Hurt or No Threatened By a Person Suicidal Ideation Description None Suicide Plan Description No Plan Tobacco & Substance use: Tobacco type cigarettes Smoking Status Current some day smoker alcohol intake former alcohol intake frequency a few times a week Substance Use Type marijuana Meds Home Medications and Allergies Home Medications Medication Instructions Recorded Confirmed Type Narcan 1 spray INTRANASAL NOW PRN 01/14/20 09/20/20 History Kellie-Ramila 1 tab PO DAILY 01/14/20 09/20/20 History acetaminophen [Tylenol] 650 mg PO PRN PRN 01/14/20 09/20/20 History allopurinol 100 mg PO DAILY 01/14/20 09/20/20 History cyclobenzaprine 10 mg PO PRN PRN 01/14/20 09/20/20 History cyclosporine modified 25 mg PO BID 01/14/20 09/20/20 History docusate sodium 250 mg PO PRN PRN 01/14/20 09/20/20 History duloxetine [Cymbalta] 20 mg PO DAILY 01/14/20 09/20/20 History fentanyl [Duragesic] See Rx Instructions .ROUTE .COMPLEX 01/14/20 09/20/20 History gabapentin 300 mg PO BID 01/14/20 09/20/20 History hydroxyzine pamoate [Vistaril] 25 mg PO BEDTIME PRN 01/14/20 09/20/20 History lidocaine [Lidoderm] 1 patch TOPICAL DAILY 01/14/20 09/20/20 History metoprolol succinate 25 mg PO DAILY 01/14/20 09/20/20 History mycophenolate mofetil [CellCept] 500 mg PO BID 01/14/20 09/20/20 History ondansetron HCl [Zofran] 4 mg PO Q8H PRN 01/14/20 09/20/20 History pyridoxine (vitamin B6) 100 mg PO DAILY 01/14/20 09/20/20 History quetiapine [Seroquel] 25 mg PO BEDTIME 01/14/20 09/20/20 History ursodiol 300 mg PO BID 01/14/20 09/20/20 History ondansetron 4 mg PO TID-QID PRN #10 tab 05/14/20 09/20/20 Rx pantoprazole [Protonix] 40 mg PO DAILY #30 tab 05/14/20 09/20/20 Rx furosemide 20 mg PO DAILY 07/26/20 09/20/20 History rifaximin [Xifaxan] 550 mg PO BID 09/20/20 09/20/20 History Allergies Allergy/AdvReac Type Severity Reaction Status Date / Time codeine Allergy Severe Vomiting Verified 06/26/20 10:11 NSAIDS (Non-Steroidal Allergy Severe Abdominal Verified 06/26/20 10:09 Anti-Inflamma Pain venom-honey bee Allergy Severe Wheezing Verified 06/26/20 10:11 [BEE VENOM (HONEY BEE)] dextromethorphan AdvReac Severe Seizure Verified 06/26/20 10:09 copper AdvReac Intermediate Verified 06/26/20 10:09 morphine AdvReac Intermediate Vomiting Verified 06/26/20 10:09 oxycodone AdvReac Intermediate Vomiting Verified 06/26/20 10:09 tizanidine AdvReac Unknown Verified 06/26/20 10:09 adhesive tape AdvReac Verified 06/26/20 10:09 pseudoephedrine AdvReac Verified 01/14/20 21:48 NYQUIL Allergy Unknown Uncoded 05/14/20 01:38 Review of Systems Review of Systems Narrative: No new recent chest pain or cardiac problems he has chronic pain issues [facility], he had a [facility] liver transplant she has about 7 or 8 years ago and he has been reasonably stable. He is followed renal insufficiency that is been reportedly fairly stable. He is uncertain why he had a syncopal episode Exam Vital Signs (past 8 hours): - 09/21/20 11:56 09/21/20 14:05 09/21/20 14:41 Temperature 98.1 F Pulse Rate 71 75 60 Respiratory Rate 15 14 Blood Pressure 110/59 L 115/53 L Pulse Oximetry 97 09/21/20 15:40 Temperature 98.4 F Pulse Rate 85 Respiratory Rate 18 Blood Pressure 127/68 Pulse Oximetry 98 Oxygen Delivery Method Room Air Oxygen Flow Rate 0 Narrative Exam Narrative: HEENT is benign he is alert he is oriented he is conversant and pleasant does appear to be in some distress, cor is regular rate and rhythm, lungs are clear, back shows focal tenderness at the thoracolumbar junction, a some mild numbness in bilateral lower extremities but he is neurologically intact distally, he has marked tenderness to palpation over the lateral aspect of his left ankle with mild tenderness over the proximal fibula, there is moderate tenderness over the medial aspect of his left ankle has [id number] swelling of the left lower extremity skin is intact distally, right lower extremity shows substantial swelling in the right lower extremity is tender to palpation both over the medial and lateral ankle, skin is intact, he can fire bilateral toe flexors and extensors Objective Labs Result Diagrams: 09/21/20 08:19 09/21/20 08:19 Labs: Laboratory Results - last 24 hr 09/21/20 09/21/20 08:19 08:19 WBC 10.6 RBC 3.44 L Hgb 10.9 L Hct 34.2 L MCV 99.2 MCH 31.6 MCHC 31.9 RDW 16.1 H Plt Count 125 L Neut % (Auto) 49.2 L Lymph % (Auto) 37.2 [place] % (Auto) 12.2 Eos % (Auto) 0.9 L Baso % (Auto) 0.5 Neut # (Auto) 5200 Lymph # (Auto) 4000 [place] # (Auto) 1300 H Eos # (Auto) 100 Baso # (Auto) 100 Sodium 133 L Potassium 4.1 Chloride 102 Carbon Dioxide 28 BUN 53 H Creatinine 2.60 H Estimated GFR 25.7 L BUN/Creatinine Ratio 20.4 Glucose 140 H Calcium 7.9 L Total Bilirubin 1.7 H AST 35 ALT 20 Alkaline Phosphatase 210 H Total Protein 6.4 Albumin 3.1 L Globulin 3.3 Albumin/Globulin Ratio 0.9 L x-rays show bilateral ankle fractures right side is bimalleolar with a fibular fracture and a bony avulsion medially, the left side shows a distal fibula fracture with soft tissue swelling medially and he has a left proximal fibula fracture there is some generalized osteoporosis, CT scan of his lumbar spine shows multiple compression fractures, CT scan of his thoracic sign spine shows multiple compression fractures Assessment & Plan Assessment & Plan narrative: image and a the he did have substantial thoracic and mid back pain high recommended a MRI scan of his thoracic and lumbar spine to address the acuity of his fractures. The radiologist read the thoracic MRI scan is no acute fractures I think there is some bony edema at both T9 and T10 consistent with a complete acute compression fracture. He has generalized osteopenia and multiple fractures both in his thoracic and lumbar spine without retropulsion of bone or evidence of severe instability. He also has bilateral ankle fractures. We discussed his alternatives in great detail today they are both very painful and symptomatic and he would like to to attempt to mobilize. I have recommended open reduction internal fixation of bilateral ankle fractures. Procedure alternatives risks benefits and complications were discussed in detail. He understands and agrees and were going to work on getting scheduled for tomorrow. Quality VTE Deep Vein Thrombosis/Pulmonary Embolism Present on Admission: No
[2020-09-21] MEDS: HYDROMORPHONE 4 MG TABLET PO (20:25)
[2020-09-22] VITALS (20 sets, daily range): BP systolic 99–140; BP diastolic 66–89; PULSE 62–102; RESP 10–19; TEMP 36.3–37; O2SAT 96–99; BMI 27.0
[2020-09-22] MEDS: HYDROMORPHONE 4 MG TABLET PO ×2 (00:05→05:34)
[2020-09-22] MEDS: diazePAM 10 MG/2 ML SYRINGE 2 MG IV (00:07)
[2020-09-22] MEDS: HYDROMORPHONE 2 MG INJ IV ×6 (00:58→17:44)
[2020-09-22] MEDS: SODIUM CHLORIDE 0.9% 1,000 ML 100 ML IV ×2 (04:31→14:37)
--- NOTE | 2020-09-22 06:31 | PC.NURSE ---
Pt pain not controlled by medication regime. Pt's pain does not dip below 8/10 in back and BLE (mostly R ankle), and requests pain medication hourly. Pt states preference for IV narcotics over PO.
[2020-09-22 08:30] LABS: Add Manual Diff / Slide Review NO; Basophils Absolute Auto 100 /uL (0-100); Basophils Percent Auto 0.6 % (0-2); Eosinophils Absolute Auto 100 /uL (0-450); Hematocrit 30.1 % (41-53); Hemoglobin 9.7 g/dL (13.5-17.5); Lymphocytes Absolute Auto 3800 /uL (1100-4500); Lymphocytes Percent Auto 32.8 % (25-40); Mean Corpuscular HGB Conc 32.2 % (30-36); Mean Corpuscular Hemoglobin 31.8 PG (26-34); Mean Corpuscular Volume 98.9 fL (80-100); Monocytes Absolute Auto 1300 /uL (0-900); Monocytes Percent Auto 11.4 % (3-14); Neutrophils Absolute Auto 6200 /uL (1500-7000); Neutrophils Percent Auto 54.2 % (50-75); Platelet Count 107 X10^3/uL (150-400); Red Blood Cell Count 3.05 X10^6/uL (4.5-5.9); Red Cell Distribution Width 16.2 % (11.6-14.8); White Blood Cell Count 11.5 X10^3/uL (4.5-11.0)
[2020-09-22 08:43] LABS: INR 1.1 (0.9-1.3); Prothrombin Time 12.8 SECONDS (10.1-12.7)
[2020-09-22 08:52] LABS: Alanine Aminotransferase 15 IU/L (<50); Albumin 2.7 g/dL (3.5-5.0); Albumin Globulin Ratio 0.9 (1.0-2.8); Alkaline Phosphatase 192 U/L (38-126); Aspartate Aminotransferase 27 IU/L (17-59); BUN Creatinine Ratio 21.5 (6-22); Bilirubin Total 1.7 mg/dL (0.2-1.3); Blood Urea Nitrogen 47 mg/dL (9-20); Calcium 7.5 mg/dL (8.4-10.2); Carbon Dioxide 26 mmol/L (22-32); Chloride 104 mmol/L (98-107); Estimated Glomerular Filt Rate 31.3 mL/min (>60); Glucose 106 mg/dL (70-100); HEMOLYSIS < 15 (0-50); Potassium 4.1 mmol/L (3.4-5.1); Sodium 132 mmol/L (137-145); Total Protein 5.7 g/dL (6.3-8.2)
[2020-09-22] MEDS: RIFAXIMIN 550 MG TABLET PO (10:32)
[2020-09-22] MEDS: GABAPENTIN 300 MG CAPSULE PO (10:33)
[2020-09-22] MEDS: DULOXETINE 20 MG CAPSULE PO (10:33)
[2020-09-22] MEDS: NEPHRO-VITE RX TABLET 1 TAB PO (10:33)
[2020-09-22] MEDS: MYCOPHENOLATE MOFETIL 500 MG TABLET PO (10:33)
[2020-09-22] MEDS: PANTOPRAZOLE 40 MG TABLET PO (10:33)
[2020-09-22] MEDS: ursodioL 300 MG CAPSULE PO (10:33)
[2020-09-22] MEDS: PYRIDOXINE (VITAMIN B6) 50 MG TABLET 100 MG PO (10:33)
[2020-09-22] MEDS: LIDOCAINE PATCH 1 EACH ADH..PATCH TOP (10:34)
[2020-09-22] MEDS: METOPROLOL ER 25 MG TABLET PO (11:48)
--- NOTE | 2020-09-22 14:14 | CM.DPC ---
DCP Cont: Per Ortho , recommending open reduction internal fixation of bilateral ankles and surgery is currently scheduled for 1800 tonight and therefore PT/OT on hold until after surgery. Pt's pain seems to be better managed. Pt also is established with [facility] and CM is Walter Martin [phone] and he may be a potential source of help for discharge planning or at least after discharge follow up. And pt also receives JUSTICE CG 2-3 days a week through [facility]. Pt aware that he will need SNF prior to return to alone. Currently these SNF's have been given referrals: [facility]- not contracted with [facility]- not contracted with [facility]- left msg inquiring if they are contracted with [facility]- declines pt [facility]- may have openings in a couple days [facility]- reviewing but want PT/OT when available SW waiting for surgery to be completed tonight and then PT/OT eval possibly tomorrow towards updating SNF's and also towards attempting [facility] insurance auth for SNF. Plan: DCP to follow closely tomorrow after surgery and then PT/OT initial eval and recommendations towards updating [facility], [facility], [facility] Sood regarding SNF at d/c. ZENA Montaño
--- NOTE | 2020-09-22 16:15 | PM.PN.1 ---
Subjective Subjective Date Patient Seen: 09/22/20 Interval history: Earnest Wilks is a 54-year-old male with history alcoholic cirrhosis complicated by hep C, status post liver transplant at in 2011, CKD stage III, hypertension, GUILLE, gout, depression, GERD, and osteoporosis who presented to the emergency room with significant pain after a syncopal episode at home. Admitted with bilateral malleolar ankle fractures. In addition thoracic MRI review by orthopedic surgery shows some bony edema at T9 and T10 consistent with completed acute compression fractures. Patient is complaining of severe back pain and ankle pain. He is getting IV Dilaudid 2 mg q.3 hours with incomplete relief. We had also increased his fentanyl patch from 25 mcg to 50 mcg. He is scheduled for ORIF of bilateral ankle fractures later this afternoon. Exam Vital Signs (past 8 hours): - 09/22/20 11:48 09/22/20 11:52 09/22/20 12:00 Temperature 97.8 F Pulse Rate 101 H 102 H Respiratory Rate 17 Blood Pressure 106/72 106/72 Pulse Oximetry 98 99 09/22/20 15:40 Temperature 98.6 F Pulse Rate 92 H Respiratory Rate 19 Blood Pressure 129/82 Pulse Oximetry 96 Oxygen Delivery Method Room Air Oxygen Flow Rate 0 Narrative Exam Narrative: General: Patient is a little sleepy and complaining of pain Objective Labs Result Diagrams: 09/22/20 08:02 09/22/20 08:02 Labs: Laboratory Results - last 24 hr 09/22/20 09/22/20 09/22/20 08:02 08:02 08:02 WBC 11.5 H RBC 3.05 L Hgb 9.7 L Hct 30.1 L MCV 98.9 MCH 31.8 MCHC 32.2 RDW 16.2 H Plt Count 107 L Neut % (Auto) 54.2 Lymph % (Auto) 32.8 [place] % (Auto) 11.4 Eos % (Auto) 1.0 L Baso % (Auto) 0.6 Neut # (Auto) 6200 Lymph # (Auto) 3800 [place] # (Auto) 1300 H Eos # (Auto) 100 Baso # (Auto) 100 PT 12.8 H INR 1.1 Sodium 132 L Potassium 4.1 Chloride 104 Carbon Dioxide 26 BUN 47 H Creatinine 2.19 H Estimated GFR 31.3 L BUN/Creatinine Ratio 21.5 Glucose 106 H Calcium 7.5 L Total Bilirubin 1.7 H AST 27 ALT 15 Alkaline Phosphatase 192 H Total Protein 5.7 L Albumin 2.7 L Globulin 3.0 Albumin/Globulin Ratio 0.9 L PFSH Medical History Cirrhosis of liver CKD (chronic kidney disease) Compression fracture Depression GERD (gastroesophageal reflux disease) Gout Hepatitis C Hypertension Liver cancer GUILLE (obstructive sleep apnea) Osteoporosis Surgical History H/O right wrist surgery History of right hip replacement Liver transplant recipient Presence of left artificial elbow joint Family History Mother Renal failure Father Diabetes mellitus Congestive heart failure Social History household members: none Smoking Status: Current some day smoker alcohol intake: former Assessment & Plan Assessment & Plan narrative: Earnest Wilks is a 54-year-old male with history alcoholic cirrhosis complicated by hep C, status post liver transplant at in 2011, CKD stage III, hypertension, GUILLE, gout, depression, GERD, and osteoporosis who presented to the emergency room with significant pain after a syncopal episode at home. 1. Syncope - suspect orthostatic nature given history. EKG unchanged compared to previous. - continue IV fluids preop -telemetry normal, discontinue 2. acute left lateral malleolar fracture and right bimalleolar fractures, present on admission. -scheduled for bilateral ankle ORIF -preop can use IV Dilaudid 2 mg q.3 hours as needed and is noted fentanyl patch increased to 50 mcg -patient complaining of severe ankle pain even though not weight-bearing, even with regular IV Dilaudid and increase in fentanyl patch, which makes me question his reliability as far as pain control goes -postop PT/OT consult 3. osteoporosis with multiple chronic compression fractures, possible complete acute compression fractures of T9 and T10 - continue pain management as noted above. - PT/OT evaluation after orthopedic surgery consultation. - fentanyl patch increased from 25 to 50 mcg on 09/20. Has 25 mg at home but has been requesting increased dosing from PMD. 4. SANDY on CKD stage III - admission cr 3.07 improved slightly after fluids. Now to 2.2. May be secondary to mild dehydration given presentation. CK unremarkable on admission labs. - continue to follow creatinine, IV fluids preop. Last known Creatinine was 1.8. Unclear baseline as previously reported baseline per [facility] records of 2.6. 5. alcoholic and hep C cirrhosis s/p liver transplant, chronic, stable - Continue current medications -resume lactulose postop, continue home rifaximin. - continue cellcept, cyclosporine, ursodiol. 6. HTN - patient hypertensive on admission, taking metoprolol and lasix on admission. Continue metoprolol and resume Lasix postop 7. GERD, chronic, stable - continue home PPI 8. GUILLE, chronic - continue to monitor, can use home CPAP machine if available. 9. Chronic low back pain with opioid dependency - have increased home fentanyl patch to 50 mcg, pain management as noted above. -per minute increase in fentanyl patch does is best done through PCP, patient probably should be put back on 25 mcg patch postop with oxycodone as needed for breakthrough pain for a few weeks postop 10 acute severe protein calorie malnutrition - appreciate beauty culturist apprentice consultation - continue nutritional supplementation. Malnutrition places patient at higher risk for complications from surgery, and likely contributed to risk of osteoporosis and fractures. Quality VTE Deep Vein Thrombosis/Pulmonary Embolism Present on Admission: No
--- NOTE | 2020-09-22 16:36 | DIET.PN ---
Dietary Progress Note Assessment: 54y M admitted for acute bilateral ankle fractures after syncopal episode in his trailer referred to nutrition for recent weight loss and malnutrition screening. Pt has pmhx of history alcoholic cirrhosis complicated by hep C, status post liver transplant at in 2012, CKD stage III, hypertension, GUILLE, gout, depression, GERD, and osteoporosis. Pt has chronic px and opioid use, recently had fentanyl dosing doubled to better manage pain. Pt has numerous chronic compression fractures along thoracic and lumbar spine. HT: 177.8cm WT: 85.4kg (-7.9% unintentional weight loss in 6w) UBW: 93-104kg over past 4y per [facility] records BMI: 27.0 Labs: hgb 9.7 L, BUN 47 H, Cr 2.19 H, eGFR 31.3 L, calcium 7.5 L, alk phos 192 H, WBC 12.8 H Pt lives alone in and is responsible for his own meals. Pt endorses reduced appetite secondary to pain as well as opioid therapy. Pt is high risk for surgical complications because of PCM as well as higher risk of loss of lean body mass r/t overweight status. Usual Day: B: smoothie L: 1/2 liverwurst sandwich D: piece of chicken c coleslaw MNA: 11 @ risk for malnutrition Pedro: 15 @ risk for skin breakdown Nutrition Diagnosis: Severe Acute PCM r/t decreased appetite aeb 7.9% unintentional weight loss in 6w (severe), food recall meeting <75% EER for 6w, pt endorses chronic pain c recent doubling of fentanyl Rx, CT shows numerous chronic compression fractures in thoracic and lumbar spine secondary to osteoporosis, pt syncope resulting in bilateral ankle fractures, pt has hx of liver transplant after etoh cirrhosis c hep c. Interventions: 1. Recc appropriate ONS when assigned diet. 2. Recc education on nutrients for healing. Diet Order: NPO awaiting surgery EER: 110g PRO (1.3g/kg per PCM), 2500kcal (30kcal/kg per PCM) Monitoring/Evaluations: diet order, ONS tolerance, associated labs, POs
--- NOTE | 2020-09-22 17:44 | PM.PREOP ---
Pre-operative Note COVID-19 COVID-19 status: Negative Interval Note History & Physical reviewed/Exam performed by Physician: Yes Changes to H&P: No
[2020-09-22] MEDS: LACTATED RINGERS 1,000 ML 42 ML IV (17:46)
[2020-09-22] MEDS: MIDAZOLAM 2 MG/2 ML VIAL IV (18:33)
[2020-09-22] MEDS: CEFAZOLIN 2 GM/100 ML FROZ.PIGGY IV ×2 (18:59→22:42)
--- NOTE | 2020-09-22 19:01 | SUR.HOLD ---
Block start time [1825] . Monitoring initiated and maintained throughout procedure. Oxygen and medications given per anesthesiologist instructions. Patient remained stable throughout procedure, no adverse reactions noted. Block end time [1837].
--- NOTE | 2020-09-22 19:02 | SUR.HOLD ---
Pt left for OR with Ellen,RN and in stable condition.
--- NOTE | 2020-09-22 19:31 | SUR.OPER ---
Supine on padded OR bed, head on pillow, arms secured on padded arm boards at <90 degrees abduction, legs uncrossed, safety belt at abdomen , bilateral legs draped in sterile field, bilateral hip bumps .
[2020-09-22] MEDS: BUPIVACAINE 0.5% W/ EPI (PF) 30 ML VIAL INJ (19:39)
--- NOTE | 2020-09-22 20:45 | P.OP_ITS ---
Operative Date/Time/Diagnoses Date of procedure: 09/22/20 Time of procedure: 18:58 Pre-op diagnosis: Right ankle bimalleolar fracture left ankle bimalleolar fracture Post-op diagnosis: same Procedure & Clinicians Procedure: open reduction internal fixation bilateral ankle bimalleolar fractures with lateral plates bilaterally Same procedure as scheduled: Yes Indications: this is an osteoporotic 54-year-old with multiple medical problems including a history of a liver transplant who fell with a syncopal episode and noted the acute onset of bilateral ankle pain. He was medically stabilized for several days because of some increased creatinine and multiple medical problems and he is now brought to the operating room for open reduction internal fixation bilateral ankle fractures. Surgeon: Monica Barros Click Yes if Unassisted: Yes Anesthesia Type: General Operative Notes Findings: . Very soft bone, adequate reduction and internal fixation bilateral ankle fractures with a combination of locking and nonlocking screws. Closure Type: primary Specimen(s): none sent Prosthetic devices, grafts, tissues, transplants, or devices: Barros and nephew Evos 2.7 mm lateral ankle plates Applied: cast(s) Estimated Blood Loss (mL): 200 Blood products transfused: none Tourniquet time (min): 27 ( right 27, left 34) Procedure in detail: patient is brought to the operating room he was transferred to the OR table. He underwent the induction of a general anesthesia. Time-out was performed. Antibiotics were given. Bilateral lower extremities were prepped and draped in a standard sterile fashion. Attention was 1st directed to the right ankle. Tourniquet was elevated to 250 after exsanguinating the leg. Lateral skin incision was made dissection was carried out through skin and subcutaneous tissues. Superficial nerves and small crossing vessels were meticulously protected and mobilized. Dissection was carried down to the lateral malleolus. The fracture was anatomically reduced and held with a clamp. It was then fixed with a 2 7 multiple hole locking plate. Some of the screws were applied in a locking mode And some applied in nonlocking mode. anatomic reduction was achieved. Fluoroscopic image confirmed reduction and location of the fixation. Marcaine was injected. The wound was closed with interrupted Vicryl and skin cooper. It was dressed sterilely. Attention was then directed to the left ankle. High-thigh tourniquet was applied and elevated to 250 mm of mercury. Lateral skin incision was made. Dissection was carried out through skin and subcutaneous tissues. Gelpi retractors were placed. the vessels and small nerves were meticulously protected. The plate was carefully aligned to the fibula. It did not sit against the bone as distal as the contralateral side. There was not significant deformity of the fracture. I fixed the plate with 3 screws evaluated at thought maybe a showed some movement slightly distal checked the overall alignment realigned the plate and the fracture and then filled it with a combination of locking and nonlocked locking screws. Fluoroscopy confirmed reduction and fixat ion. The wound was meticulously irrigated with normal saline. The wound was closed with interrupted Vicryl and skin cooper. Marcaine was meticulously injected. Patient was placed in bulky Koo splints on bilateral lower extremities. Tolerated the procedure well transferred to recovery room in satisfactory condition. Complications: none Post-operative Condition: stable Disposition: Acute Care Plan for aftercare: Out of bed to chair transfers touchdown weight-bearing on bilateral lower extremities. Return to clinic in 2 weeks for x-rays and placement of short-leg walking cast bilaterally.
--- NOTE | 2020-09-22 21:38 | SUR.PHASEI ---
Late entry: Pt arrived with patent airway, nasal cannula 02 added,pt awoke,denied pain, ice placed behind knees and both lower extremities elevated on pillows. Pt denied nausea and tolerated ice chips. Monitor showed SR with frequent PACs and runs of self limiting SVT rate in low 120's. Dr Rocha to pt's bedside, discussed placing pt on telemetry upstairs. Verbal order for telemetry obtained. Pt transfered to room 210 via bed on 2/l nasal cannula 02, pt left in stable condition.
--- NOTE | 2020-09-22 23:22 | PC.NURSE ---
2130: pt A&OX3. denies pain, nausea or sob. VSS. 98% 2L. BLE cast intact. cap refill <2sec. call light in reach. bed alarm active. some of his meds are dc'd in the mar, hospitalist aware.
[2020-09-23] VITALS (10 sets, daily range): BP systolic 107–136; BP diastolic 67–87; PULSE 62–82; RESP 16–20; TEMP 36.2–37; O2SAT 94–100
[2020-09-23] MEDS: HYDROMORPHONE 0.5 MG INJ 0.2 MG IV ×3 (01:24→03:31)
[2020-09-23] MEDS: SODIUM CHLORIDE 0.9% FLUSH 10 ML IV ×6 (01:24→20:41)
--- NOTE | 2020-09-23 02:43 | PC.NURSE ---
Addendum entered by Sherice Noriega R.N. 09/23/20 06:39: Patient still complains that pain medication not effective so patient was medicated with Flexeril and Martinez MELÉNDEZ, informed and in to talk with patient. Addendum entered by Sherice Noriega R.N. 09/23/20 03:41: given a 3rd dose of IV Dilaudid as patient states last doses have not even touched the pain. Discussed patient's pain with Martinez MELÉNDEZ, and new order received for po Dilaudid. At start of shift also discussed with her that patient's medications were discontinued by orthopedic surgeon and no IV fluid was ordered. MED[facility]AT is aware and will check into it. Original Note: patient asleep first few hours of shift. Now awake and complaining of 8/10 back and bilateral LE aching pain so was medicated with IV Dilaudid but pain only decreased to 7/10 so administered a second dose of IV Dilaudid. Is alert and oriented. Breath sounds CTA with RA sat of 98% (started shift on oxygen at 2L/min but have been able to wean off). HRR. Denies nausea. BT present but denies flatus and has not had a BM since 09/19. Was incontinent of urine earlier but has also used urinal; denies dysuria, frequency or urgency. Is able to move himself in bed. Bilateral LE are splinted so SCD's are not being used. Having pain in bilateral LE and is unable to feel touch on right foot. Pedal pulses palpable bilaterally and has good capillary refill. Fall risk score is high and bed alarm is activated.
[2020-09-23] MEDS: HYDROMORPHONE 4 MG TABLET PO ×2 (03:47→10:05)
[2020-09-23] MEDS: CYCLOBENZAPRINE 10 MG TABLET PO ×3 (05:21→20:47)
[2020-09-23] MEDS: CEFAZOLIN 2 GM/100 ML FROZ.PIGGY IV (05:23)
[2020-09-23 06:26] LABS: Hematocrit 31.3 % (41-53); Hemoglobin 10.1 g/dL (13.5-17.5); Mean Corpuscular HGB Conc 32.4 % (30-36); Mean Corpuscular Hemoglobin 31.9 PG (26-34); Mean Corpuscular Volume 98.5 fL (80-100); Platelet Count 117 X10^3/uL (150-400); Red Blood Cell Count 3.18 X10^6/uL (4.5-5.9); White Blood Cell Count 10.7 X10^3/uL (4.5-11.0)
--- NOTE | 2020-09-23 09:44 | PM.PNPO.1 ---
Subjective Subjective Date Patient Seen: 09/23/20 Time Patient Seen: 09:44 Interval history: Patient's pain has been severe this morning. Denies fever or chills. No nausea or vomiting. Patient lives alone and has a caregiver come to his place 3 times a week. Exam Vital Signs (past 8 hours): - 09/23/20 03:48 09/23/20 08:30 Temperature 97.8 F 98.2 F Pulse Rate 67 71 Respiratory Rate 16 16 Blood Pressure 124/81 136/87 Pulse Oximetry 96 99 Oxygen Delivery Method Room Air Oxygen Flow Rate 0 Narrative Exam Narrative: 54-year-old male resting comfortably in bed in no apparent distress. Lower extremity splints are intact. Toes are warm and dry with good capillary refill. Able to wiggle all toes. Sensation grossly intact to light touch bilateral lower extremities. Objective Labs Result Diagrams: 09/23/20 05:44 09/22/20 08:02 Labs: Laboratory Results - last 24 hr 09/23/20 05:44 WBC 10.7 RBC 3.18 L Hgb 10.1 L Hct 31.3 L MCV 98.5 MCH 31.9 MCHC 32.4 RDW 16.0 H Plt Count 117 L PFSH Medical History Cirrhosis of liver CKD (chronic kidney disease) Compression fracture Depression GERD (gastroesophageal reflux disease) Gout Hepatitis C Hypertension Liver cancer GUILLE (obstructive sleep apnea) Osteoporosis Surgical History H/O right wrist surgery History of right hip replacement Liver transplant recipient Presence of left artificial elbow joint Family History Mother Renal failure Father Diabetes mellitus Congestive heart failure Social History household members: none Smoking Status: Current some day smoker alcohol intake: former Assessment & Plan Post-op Postoperative Procedures: Procedures Operation Date: 09/22/20 17:15 Actual Procedures Side Surgeon p ORIF Ankle Fracture Bilateral Monica Barros MD Status post open reduction internal fixation bilateral ankle bimalleolar fractures with lateral plates bilaterally September 22, 2020. Out of bed to chair transfers toe-touch weight-bearing only bilateral lower extremities. Follow-up [facility] in 2 weeks for x-rays and short-leg walking cast bilaterally. Patient will likely need senior living facility placement however patient is requesting live in nurse to avoid having to go to senior living facility. Quality VTE Deep Vein Thrombosis/Pulmonary Embolism Present on Admission: No
[2020-09-23] MEDS: ASPIRIN EC 81 MG TABLET PO ×2 (10:01→20:28)
[2020-09-23] MEDS: GABAPENTIN 300 MG CAPSULE PO ×2 (10:02→20:28)
[2020-09-23] MEDS: DULOXETINE 20 MG CAPSULE PO (10:02)
[2020-09-23] MEDS: METOPROLOL ER 25 MG TABLET PO (10:02)
[2020-09-23] MEDS: FUROSEMIDE 20 MG TABLET PO (10:02)
[2020-09-23] MEDS: MYCOPHENOLATE MOFETIL 500 MG TABLET PO ×2 (10:03→20:28)
[2020-09-23] MEDS: PANTOPRAZOLE 40 MG TABLET PO (10:04)
[2020-09-23] MEDS: RIFAXIMIN 550 MG TABLET PO ×2 (10:04→20:29)
[2020-09-23] MEDS: PYRIDOXINE (VITAMIN B6) 50 MG TABLET 100 MG PO (10:04)
[2020-09-23] MEDS: ursodioL 300 MG CAPSULE PO ×2 (10:05→20:30)
[2020-09-23] MEDS: NEPHRO-VITE RX TABLET 1 TAB PO (10:07)
[2020-09-23] MEDS: allopurinoL 100 MG TABLET PO (10:40)
--- NOTE | 2020-09-23 10:48 | CM.DPC ---
Addendum entered by Joan Forrest LPN 09/23/20 15:56: Just spoke with Jaz/Alexa tan Yevgeniy She says that the facility is not currently contracted with anyone but needs more clinical before she can give it to her staff to review. She said she had been given the original referral by [facility] on a couple of days ago. She further noted, I haven't worked with [facility] for many years and as we are now under new ownership I am no sure what we can do. Explained that this is the end of the day for the dept but that clinical can be faxed to her in the morning if this still seems appropriate. Will plan to discuss further with team tomorrow. Addendum entered by Joan Forrest LPN 09/23/20 11:42: Thus far no PT/OT notes are available for review. PT order was reinstated last night post surgery by Dr. Robbin Barros. Pt was taken to surgery last evening for ORIF to repair LE bilateral ankle fractures. Addendum entered by Joan Forrest LPN 09/23/20 11:30: Noted that pt has been at in June 2020 and with a d/c to home with [facility] and [facility] in process. He again admitted Jul 2020 and with a d/c home with same again. He has prn assist from [place]. He is telling magui Olvera today that he is hopeful to avoid a snf stay and prefers to have a live in nurse assist him. Will be following up on the d/c plan issues and options with him. Will also check on his PCP as he reported in prior admissions that Natacha Rowley was retired and Gayla Wheatley was his PCP. Original Note: DCP: continued: case received, EMR reviewed. Discussed in Team Rounds . Dr. Gutierrez stated SNF need remains probable and orders OT to go along with the PT sessions. Note: Payer: [facility] and Medicaid. INPT admission status: as of 09/20: confirmed by UR RN. Received a call from Mariah/[facility]. She is on for admissions for next few days. She states she is following up on a left re referral need and will review clinical. She requests all clinical notes be faxed to [phone]. She confirms the facility is contracted with [facility]. PUMA Francis agrees to fax this now. P: will be following.
--- NOTE | 2020-09-23 11:00 | PC.NURSE ---
Addendum entered by Alicia Spring R.N. 09/23/20 12:10: Reassessed Dilaudid 4mg PO. Patient is amicable, laughing and communicating appropriately. Reports pain 02/19. Discussed pain management goals. Patient receptive but would still like to have IV Dilaudid. Original Note: Patient A/O x 4, c/o pain in bilateral LE, cast intact, DP pulses equal bilaterally, 1+ edema noted, cap refill <2 bilaterally. Patient able to assist with movement in bed using grab bar, repositioned for comfort. Heels floated. IV intact, flushed, patent, saline locked at this time. Tele D/C'd per order. Patient voiding in urinal. Eating independently, no complaints of nausea, chest pain, SOB or dizziness. Call light in reach.
--- NOTE | 2020-09-23 11:02 | CM.DPNOTE ---
Refaxed clinicals with [employer] on 09/23/20 to [facility] S[facility]. Fax confirmation received. Penny Copeland CM Asst.
--- NOTE | 2020-09-23 11:10 | PT.IIE ---
Current Diagnoses Displaced bimalleolar fracture of right lower leg, initial encounter for closed fracture (09/20/20) Surgery Performed Operation Date: 09/22/20 17:15 Actual Procedures p ORIF Ankle Fracture(Bilateral) - Monica Barros MD Surgical History (Last Reviewed 09/23/20 @ 09:45 by Joe Olvera PA-C) H/O right wrist surgery History of right hip replacement Liver transplant recipient Presence of left artificial elbow joint Medical History (Last Reviewed 09/23/20 @ 09:45 by Joe Olvera PA-C) Cirrhosis of liver CKD (chronic kidney disease) Compression fracture Depression GERD (gastroesophageal reflux disease) Gout Hepatitis C Hypertension Liver cancer GUILLE (obstructive sleep apnea) Osteoporosis Physical Therapy Inpatient Evaluation/Re-Eval M1 PT/OT-IP Prior Functional Status Start: 09/23/20 08:29 Freq: NEEDED Status: Active Protocol: Document 09/23/20 11:10 AW (Rec: 09/23/20 12:05 AW [id number]) Medical Review Prior Functional Status Medical History Reviewed Yes Communication Able to make needs known. Mobility and Gait Pt is typically independent with all mobilities and regularly does shopping trips without assistive device. Activities of Daily Living and IADL's Independent with all ADL's. Pt has a [employer]ICE caregiver three days per week who helps him with cleaning, meal prep, and driving to appointments. Prior Functional Level (Other details) Pt has complex medical history including liver transplant in 2011, CKDIII, alcoholic cirrhosis, and osteoporosis. Social History Household Members none Living Arrangements RV Number of Floors (Floors) One Floor Number of Stairs To Enter/Railing? 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 M2 PT-IP Current Condition Start: 09/23/20 08:29 Freq: NEEDED Status: Active Protocol: Document 09/23/20 11:10 AW (Rec: 09/23/20 12:05 AW [id number]) Physical Therapy Current Condition Current Condition Evaluation Date 09/23/20 Treatment Diagnosis bilateral ankle fx s/p ORIF; T /S and L/S compression fx; difficulty walking Onset Date 09/20/20 Precautions Lumbar Precautions Log Roll,No Twisting,Limit Bending,Lifting Restriction of 10 lbs Other Precautions syncope; falls Weight Bearing Status Weight Bearing Status Touch Down Weight Bearing Allowed Weight Bearing Amount (enter % TDWB BLE or #) (%) M3 PT-IP Subjective Start: 09/23/20 08:29 Freq: NEEDED Status: Active Protocol: Document 09/23/20 11:10 AW (Rec: 09/23/20 12:05 AW [id number]) Subjective Physical Therapy Visit Type Type Initial Evaluation Visit Start Time 10:37 Visit Stop Time 11:10 Total Visit Minutes 33 Notes Ortho MD had initially ordered Western boot for LLE. Original PT order was discharged until after surgery . New orders received post-op did not include direction on Western boot. Rather, new orders were for TDWB BLE after ortho had placed both ankles in bulky Koo splints intraoperatively. This PT clarified with ortho MD that no boot was to be placed at this time. Ortho stated up to 25% PWB BLE was appropriate but also agreed that there was no difference between 25% and TDWB. PT proceeds conservatively with orders for TDWB BLE. Number of DIRECTOR TELEVISION NEWS Visits 0 Physical Therapy Visit Comments Patient Comments Pt is willing to participate with PT Patient Goals Restore independent ambulation . Pt is aware of need for and is agreeable to SNF rehab Therapy Pain Assessment Pain When Pain Assessed At Rest Pain Present Pain Present Pain Reported Location Back Intensity 7 Scale Used Numeric (0 - 10) Pain Management Techniques Re-positioning,Timing of Activity with Medications Bilateral Leg Intensity 9 Scale Used with legs dangling/dependent Description Crushing Pain Management Techniques Elevation,Re-positioning, Timing of Activity with Medications M4 PT-IP Mobility and Gait Start: 09/23/20 08:29 Freq: NEEDED Status: Active Protocol: Document 09/23/20 11:10 AW (Rec: 09/23/20 12:05 AW [id number]) PT-Bed Mobility Assessment Supine to Sit Supine to Sit Contact Guard Assistance, Bedrails Sit to Supine Sit to Supine Contact Guard Assistance, Bedrails Scooting Scooting to Edge of Bed Contact Guard Assistance Scooting Up and Down in Bed Standby Assistance PT-Transfer Assessment Equipment Transfer Assistive Device Sliding Board Orthotic/Prosthetic Devices or Brace: No Transfers Transfer Destination Bed,Chair Transfer Technique Lateral Scoot Transfer Ability Level of Assist Minimal Assistance,1 Person Assistance,Use of Upper Extremities Comments Mobility Comments Pt was reclined in the bed as PT arrived. BP 120/70. PT instructed the pt in back precautions and log roll for bed mobility. In spite of teaching, pt proceeded to use the overhead lift as a trapeze to assist with supine to long sitting before pivoting toward the left EOB CGA. Pt did not complain of increased back pain with this movement but was educated again on back precautions and need for spinal stability. PT continued education on weightbearing status with pt remarking I think I could do that with a walker. PT educated that TDWB BLE was not appropriate for a standing transfer. PT demonstrated a slide board transfer. Pt then completed slide board transfer from bed to chair going right and from chair to bed going left min A x 1. He was able to maintain TDWB BLE with cues and min assist. Pt then repositioned himself in bed with HOB elevated and BLE elevated on pillows CGA. He attempted to use the overhead lift bar as a trapeze for positioning. PT demonstrated use of the bed rails and head board coin wrapping machine operator for bed mobility with bed flat and pt was able to complete this activity SBA. Pt was left with call light and all needs within reach. Bed alarm was activated for safety. Gait Assessment Comments Gait Comments Pt unable due to TDWB BLE. PT-Balance Assessment Sitting Balance and Reactions Static Sitting Balance Ability Good Dynamic Sitting Balance Ability Good M5 PT-IP Objective Assessments Start: 09/23/20 08:29 Freq: NEEDED Status: Active Protocol: Document 09/23/20 11:10 AW (Rec: 09/23/20 12:05 AW [id number]) Orientation Orientation/Cognition Level of Alertness Alert Orientation Name,Day of Week,Place, Situation Language Function Ability No Deficits Noted Safety Awareness Decreased Safety Awareness Memory Description No Deficits Noted Gross Range of Motion Upper Extremity ROM Assessment Within Functional Limits Lower Extremity ROM Assessment Bilaterally Impaired Impairments B ankles in Koo splints Strength Upper Extremity Strength Assessment Within Functional Limits Lower Extremity Strength Assessment Bilaterally Impaired Hip 4/5 Knee 4/5 Sensation Assessment Sensation Gross Sensation WNL Comments Sensation Comments Pt denies numbness in distal BLE Muscle Tone Muscle Tone WNL Yes Other Assessments Other Other Assessments BP stable 120's/high 60's throughout evaluation with no complaint of dizziness. M6 PT-IP Treatment Start: 09/23/20 08:29 Freq: NEEDED Status: Active Protocol: Document 09/23/20 11:10 AW (Rec: 09/23/20 12:05 AW [id number]) Physical Therapy Treatment Education Education Provided Weight Bearing Status,Safety Other Treatments Other Treatment Performed Provided education on role of PT, plan of care, spinal precautions, weightbearing status, and slide board transfers. M7 PT-IP Assessment and Plan Start: 09/23/20 08:29 Freq: NEEDED Status: Active Protocol: Document 09/23/20 11:10 AW (Rec: 09/23/20 12:05 AW [id number]) PT Summary Assessment and Plan Potential Rehabilitation Potential Good Status of Condition at Evaluation Stable Summary Impairments Pain,ROM,Strength,Balance,Bed Mobility,Transfers,Gait Assessment Summary Earnest is a 54 yo man seen for PT evaluation on POD1 following ORIF R bimalleolar ankle fracture and L distal fibular fracture. Both ankles are maintained in bulky Koo splints and weightbearing status is TDWB BLE. Pt also has multiple compression fractures through thoracic and lumbar spine. He is typically independent with mobility and ambulation. He has caregiver support 3 days/week at home for cleaning, meal prep, and driving but otherwise lives alone. On evaluation, pt required CGA and cues for bed mobility and min assist for slide board transfers in order to maintain TDWB BLE. Pt is limited by pain affecting his independent mobility and would be unable to maintain TDWB BLE at home. Pt requires SNF rehab with the goal of ultimately returning home. Goals Bed Mobility Goal Standby Assistance Transfer Goal Standby Assistance,Slide Board Frequency of Treatment Frequency Of Treatment Twice a Day Treatment Plan Physical Therapy Treatment Plan Bed Mobility Training,Transfer Training,Therapeutic Exercise ,Balance Retraining,Post Op Education,Discharge Planning, Hot or Cold Pack,Neuromuscular Re-ed Other Recommendations and Next Treatment log roll, bed mobility, slide Focus board transfer to w/c and/or commode Recommendations To Nursing Amount of Assist Needed PT/OT Assist Only Discharge Recommendations PT Discharge Recommendations SNF Rehab Equipment Needed for Home Before defer to rehab setting Discharge Transportation Needs at Discharge Wheelchair/Cabulance
--- NOTE | 2020-09-23 12:55 | CM.DPNOTE ---
Used [employer] to send PT notes from [facility] on 09/23/20 and received fax confirmation. Penny Copeland CM Asst.
[2020-09-23] MEDS: HYDROMORPHONE 2 MG INJ IV ×3 (14:32→23:38)
[2020-09-23] MEDS: fentaNYL 25 MCG/PATCH TOP (15:31)
--- NOTE | 2020-09-23 15:33 | PT.IPTN ---
Addendum entered and electronically signed by Mariella Mix PT 09/23/20 15:38: Pt complained on pain or skin irritation on the right lateral malleolus. Communicated this finding to RN. Original Note: Current Diagnoses Displaced bimalleolar fracture of right lower leg, initial encounter for closed fracture (09/20/20) Surgery Performed Operation Date: 09/22/20 17:15 Actual Procedures p ORIF Ankle Fracture(Bilateral) - Monica Barros MD Physical Therapy Treatment Note M2 PT-IP Current Condition Start: 09/23/20 08:29 Freq: NEEDED Status: Active Protocol: Document 09/23/20 11:10 AW (Rec: 09/23/20 12:05 AW [id number]) Physical Therapy Current Condition Current Condition Evaluation Date 09/23/20 Treatment Diagnosis bilateral ankle fx s/p ORIF; T /S and L/S compression fx; difficulty walking Onset Date 09/20/20 Precautions Lumbar Precautions Log Roll,No Twisting,Limit Bending,Lifting Restriction of 10 lbs Other Precautions syncope; falls Weight Bearing Status Weight Bearing Status Touch Down Weight Bearing Allowed Weight Bearing Amount (enter % TDWB BLE or #) (%) M3 PT-IP Subjective Start: 09/23/20 08:29 Freq: NEEDED Status: Active Protocol: Document 09/23/20 15:17 AW (Rec: 09/23/20 15:33 AW [id number]) Subjective Physical Therapy Visit Type Type Treatment Note Visit Start Time 14:50 Visit Stop Time 15:14 Total Visit Minutes 24 Physical Therapy Visit Comments Patient Comments Pt is willing to participate with PT Therapy Pain Assessment Pain When Pain Assessed At Rest Pain Present Pain Present Pain Reported Location Back Intensity 7 Scale Used Numeric (0 - 10) Pain Management Techniques Re-positioning,Timing of Activity with Medications Bilateral Leg Intensity 7 Scale Used Numeric (0 - 10) Pain Management Techniques Elevation,Re-positioning, Timing of Activity with Medications M4 PT-IP Mobility and Gait Start: 09/23/20 08:29 Freq: NEEDED Status: Active Protocol: Document 09/23/20 15:17 AW (Rec: 09/23/20 15:33 AW [id number]) PT-Bed Mobility Assessment Rolling Type of Rolling Log Rolling,Roll to Left Level of Assist Contact Guard Assistance Supine to Sit Supine to Sit Contact Guard Assistance, Bedrails Sit to Supine Sit to Supine Contact Guard Assistance, Bedrails Scooting Scooting to Edge of Bed Contact Guard Assistance PT-Transfer Assessment Equipment Transfer Assistive Device Gait Belt,Sliding Board Orthotic/Prosthetic Devices or Brace: No Transfers Transfer Destination Bed,Wheelchair Transfer Technique Lateral Scoot Transfer Ability Level of Assist Minimal Assistance,Moderate Assistance,1 Person Assistance ,Use of Upper Extremities Comments Mobility Comments Pt was sitting up in bed as PT arrived. Instructed pt again on back precautions and log roll. Pt completed log roll to his left side and sat up CGA. Before PT had set up the transfer, he impulsively attempted to position the slide board and began moving. Asked pt to let PT set up the transfer and he complied. With gait belt on and wheelchair set up on the right side, pt was able to position the slide board under himself but needed assist for positioning the board on the wheelchair. Arm was removed from the left side of the w/c and board positioned. Pt used a pillowcase to reduce friction as he used BUE to lift and move himself laterally. Pt required cues to lift as much as possible with his arms in order to avoid weightbearing > TTWB BLE. Pt successfully transferred to the w/c with min assist and cues. W/c arm was replaced and pt was wheeled out to the hallway where he practiced propulsion with BUE 50 feet x 3. On return to the room, pt refused the chair and completed another slide board transfer back to bed mod A x 1. He was positioned on the bed with call light and all needs in reach. Bed alarm was armed for safety. Gait Assessment Comments Gait Comments Pt unable due to TDWB BLE. PT-Balance Assessment Sitting Balance and Reactions Static Sitting Balance Ability Good Dynamic Sitting Balance Ability Good M5 PT-IP Objective Assessments Start: 09/23/20 08:29 Freq: NEEDED Status: Active Protocol: Document 09/23/20 11:10 AW (Rec: 09/23/20 12:05 AW [id number]) Orientation Orientation/Cognition Level of Alertness Alert Orientation Name,Day of Week,Place, Situation Language Function Ability No Deficits Noted Safety Awareness Decreased Safety Awareness Memory Description No Deficits Noted Gross Range of Motion Upper Extremity ROM Assessment Within Functional Limits Lower Extremity ROM Assessment Bilaterally Impaired Impairments B ankles in Koo splints Strength Upper Extremity Strength Assessment Within Functional Limits Lower Extremity Strength Assessment Bilaterally Impaired Hip 4/5 Knee 4/5 Sensation Assessment Sensation Gross Sensation WNL Comments Sensation Comments Pt denies numbness in distal BLE Muscle Tone Muscle Tone WNL Yes Other Assessments Other Other Assessments BP stable 120's/high 60's throughout evaluation with no complaint of dizziness. M6 PT-IP Treatment Start: 09/23/20 08:29 Freq: NEEDED Status: Active Protocol: Document 09/23/20 15:17 AW (Rec: 09/23/20 15:33 AW [id number]) Physical Therapy Treatment Education Education Provided Weight Bearing Status,Safety Other Treatments Other Treatment Performed Educated pt on importance of making sure all components are in place prior to attempting slide board transfer. M7 PT-IP Assessment and Plan Start: 09/23/20 08:29 Freq: NEEDED Status: Active Protocol: Document 09/23/20 15:17 AW (Rec: 09/23/20 15:33 AW [id number]) PT Summary Assessment and Plan Summary Impairments Pain,ROM,Strength,Balance,Bed Mobility,Transfers,Gait Progress Towards Goals Slow Progress due to Pain Assessment Summary Earnest continues to practice slide board transfers with cues for safety and sequencing and up to mod assist x 1. Continued teaching on weightbearing status and transfer technique are needed. Pt requires SNF rehab. Goals Bed Mobility Goal Standby Assistance Transfer Goal Standby Assistance,Slide Board Frequency of Treatment Frequency Of Treatment Twice a Day Treatment Plan Physical Therapy Treatment Plan Bed Mobility Training,Transfer Training,Therapeutic Exercise ,Balance Retraining,Post Op Education,Discharge Planning, Hot or Cold Pack,Neuromuscular Re-ed Other Recommendations and Next Treatment log roll, bed mobility, slide Focus board transfer to chair, w/c, commode Recommendations To Nursing Amount of Assist Needed PT/OT Assist Only Discharge Recommendations PT Discharge Recommendations SNF Rehab Equipment Needed for Home Before defer to rehab setting Discharge Transportation Needs at Discharge Wheelchair/Cabulance
--- NOTE | 2020-09-23 16:31 | OT.IP.EVAL ---
Current Diagnoses Displaced bimalleolar fracture of right lower leg, initial encounter for closed fracture (09/20/20) Surgery Performed Operation Date: 09/22/20 17:15 Actual Procedures p ORIF Ankle Fracture(Bilateral) - Monica Barros MD Past Medical History (Last Reviewed 09/23/20 @ 09:45 by Joe Olvera PA-C) Cirrhosis of liver CKD (chronic kidney disease) Compression fracture Depression GERD (gastroesophageal reflux disease) Gout Hepatitis C Hypertension Liver cancer GUILLE (obstructive sleep apnea) Osteoporosis Surgical History (Last Reviewed 09/23/20 @ 09:45 by Jeo Olvera PA-C) H/O right wrist surgery History of right hip replacement Liver transplant recipient Presence of left artificial elbow joint Occupational Therapy Inpatient Evaluation/Re-Eval M1 PT/OT-IP Prior Functional Status Start: 09/23/20 18:26 Freq: NEEDED Status: Active Protocol: Document 09/23/20 18:27 [facility] (Rec: 09/23/20 18:43 [facility] [id number]) Medical Review Prior Functional Status Medical History Reviewed Yes Communication Able to make needs known. Mobility and Gait Pt is typically independent with all mobilities and regularly does shopping trips without assistive device. Activities of Daily Living and IADL's Independent with all ADL's. Pt has a JUSTICE caregiver three days per week who helps him with cleaning, meal prep, and driving to appointments. Prior Functional Level (Other details) Pt has complex medical history including liver transplant in 2011, CKDIII, alcoholic cirrhosis, and osteoporosis. Social History Household Members none Living Arrangements RV Number of Floors (Floors) One Floor Number of Stairs To Enter/Railing? 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 Pt states still runs two [employer] in [place]. M2 OT-IP Current Condition Start: 09/23/20 18:26 Freq: Status: Active Protocol: Document 09/23/20 18:27 [facility] (Rec: 09/23/20 18:43 [facility] [id number]) Occupational Therapy Current Condition Current Condition Evaluation Date 09/23/20 Treatment Diagnosis Bilateral ankle fx s/p ORIF Diagnosis Onset Date 09/20/20 Weight Bearing Status Weight Bearing Status Touch Down Weight Bearing Allowed Weight Bearing Amount (enter % BLE TDWB or #) (%) M3 OT- IP Subjective and Pain Start: 09/23/20 18:26 Freq: Status: Active Protocol: Document 09/23/20 18:27 [facility] (Rec: 09/23/20 18:43 [facility] [id number]) OT- Subjective Occupational Therapy Visit Type Type Initial Evaluation Visit Start Time 15:57 Visit Stop Time 16:31 Total Visit Minutes 34 Occupational Therapy Visit Comments Patient Comments Pt agreeing to get out of bed for OT eval. Patient/Caregiver Goals Pt ideally would like to go home, but realizes would be best to go to skilled rehab. OT Pain Assessment Pain When Pain Assessed At Rest Pain Present Pain Present Denied Pain M4 OT- IP ADL's Start: 09/23/20 18:26 Freq: Status: Active Protocol: Document 09/23/20 18:27 [facility] (Rec: 09/23/20 18:43 [facility] [id number]) OT [id number] Comments OT Self-Feeding Comments Pt states has been able to do with no issues. OT ADL-Grooming Comments OT Grooming Comments Pt states was able to do from the bed. OT ADL-Dressing General Eval Lower Body Dressing Ability Standby Assistance Comments OT Dressing Comments Pt able to lee mesh brief while rolling side to side in bed. OT ADL-Toileting Comments OT Toileting Comments Not performed. Pt would benefit from a drop arm commode. OT ADL-Bathing Comments OT Bathing Comments Not performed, sponge bath more appropriate at this time. M5 OT- IP IADL's Start: 09/23/20 18:26 Freq: Status: Active Protocol: Document 09/23/20 18:27 [facility] (Rec: 09/23/20 18:43 [facility] [id number]) OT-Instrumental Activities of Daily Living Home Safety Awareness Awareness of Need for Assistance at Home Good Awareness Ability to Problem Solve Emergency Able to Problem Solve Situations Medication Management Medication Management No Deficits Identified Money Management Money Management No Deficits Identified Meal Preparation Meal Preparation Comments At this time pt would need assist for all IADl needs. Pyrotechnics Press Tender Pyrotechnics Press Tender Comments At this time pt would need assist for all IADl needs. M6 OT- IP Functional Cognition Start: 09/23/20 18:26 Freq: Status: Active Protocol: Document 09/23/20 18:27 [facility] (Rec: 09/23/20 18:43 [facility] [id number]) Cognitive Factors Limiting Selfcare Function Cognitive Ability Level of Alertness Alert Patient Orientation Name,Age,Birthday,Month,Date, Year,Day of Week,Place, Situation Attention Span Ability Capable of Focused Attention, Capable of Sustained Attention Ability to Follow Commands Able to Follow Multi-Step Commands Memory Description No Deficits Noted Safety Awareness Underestimates Need for Assistance Problem Solving Ability No deficits Noted Cognitive Comments Cognitive Assessment Comments Pt very impulsive and needs cues to slow down. OT- Vision and Hearing OT- Hearing Assessment OT- Hearing Assessment WFL OT- Vision Assessment Visual Acuity Glasses All The Time M7 OT- IP Mobility and Balance Start: 09/23/20 18:26 Freq: Status: Active Protocol: Document 09/23/20 18:27 [facility] (Rec: 09/23/20 18:43 [facility] [id number]) OT- Bed Mobility Assessment Rolling Level of Assistance Standby Assistance Supine to Sit Supine to Sit Assist Standby Assistance Sit to Supine Sit to Supine Assist Standby Assistance OT-Transfer Assessment Transfers Transfer Ability Contact Guard Assistance,1 Person Assistance Technique Transfer Destination Bed,Chair Transfer Technique Lateral Scoot Devices Transfer Assistive Devices Gait Belt,Sliding Board Comments Mobility Comments Pt needing assist for sliding board placement and CGA for balance and to keep from pushing down too much on his feet. OT- Balance Assessment Sitting Balance and Reactions Static Sitting Balance Ability Normal Dynamic Sitting Balance Ability Normal M8 OT- IP Objective Assessments Start: 09/23/20 18:26 Freq: Status: Active Protocol: Document 09/23/20 18:27 [facility] (Rec: 09/23/20 18:43 [facility] [id number]) OT Gross Range of Motion Upper Extremity Range of Motion Assessment Within Functional Limits OT Strength Upper Extremity Strength Assessment Within Functional Limits M9 OT- IP Assessment and Plan Start: 09/23/20 18:26 Freq: Status: Active Protocol: Document 09/23/20 18:27 [facility] (Rec: 09/23/20 18:43 [facility] [id number]) OT Summary Assessment and Plan Potential Rehabilitation Potential Good Analytic Complexity at Evaluation Moderate Summary OT Impairments Functional Mobility,Dressing, Toileting,Bathing,Toilet Transfers,Shower Transfers Progress Towards Goals Progressing Toward Goals Assessment Summary Pt mod complexity and main barriers are mobility as is currently Toe Down weight bearing for both feet and also has T9-T10 compression fractures. Pt will benefit from skilled rehab prior to going home. Currently pt's RV is not set-up for his needs and pt looking into other options that may be more accessible especially as he may temporarily need to use a wc. Goals Grooming Goal Independent Dressing Goal Independent Toileting Goal Independent Bathing Goal Independent Toilet Transfer Goal Independent Shower Transfer Goal Independent Days to Meet Goals 20 Frequency of Treatment Frequency Of Treatment Once a Day Treatment Plan OT Treatment Plan ADL Training,Functional Mobility,Patient/Family Education,Discharge Planning Other Treatment Recommendations and Next Transfer to [facility] Treatment Focus Discharge Recommendations OT Discharge Recommendations SNF Rehab Home Equipment Needs defer to SNF Transportation Needs at Discharge Wheelchair/Cabulance
--- NOTE | 2020-09-23 17:30 | P.PN_ITS ---
Subjective Subjective Date Patient Seen: 09/23/20 Interval history: Earnest Wilks is a 54-year-old male with history alcoholic cirrhosis complicated by hep C, status post liver transplant at in 2011, CKD stage III, hypertension, GUILLE, gout, depression, GERD, and osteoporosis who presented to the emergency room with significant pain after a syncopal episode at home. Admitted with bilateral malleolar ankle fractures. In addition thoracic MRI review by orthopedic surgery shows some bony edema at T9 and T10 consistent with completed acute compression fractures. Patient is postop day 1. Bilateral ankle ORIF. He complains of severe postop pain. Exam Vital Signs (past 8 hours): - 09/23/20 10:02 09/23/20 11:05 09/23/20 15:00 Temperature 98.0 F Pulse Rate 71 71 71 Respiratory Rate 16 Blood Pressure 136/87 127/69 127/69 Pulse Oximetry 99 09/23/20 15:28 Temperature 98.6 F Pulse Rate 82 Respiratory Rate 18 Blood Pressure 111/67 Pulse Oximetry 94 Oxygen Delivery Method Room Air Oxygen Flow Rate 0 Narrative Exam Narrative: General: Alert and cooperative male appears relatively comfortable Objective Labs Result Diagrams: 09/23/20 05:44 09/22/20 08:02 Labs: Laboratory Results - last 24 hr 09/23/20 05:44 WBC 10.7 RBC 3.18 L Hgb 10.1 L Hct 31.3 L MCV 98.5 MCH 31.9 MCHC 32.4 RDW 16.0 H Plt Count 117 L PFSH Medical History Cirrhosis of liver CKD (chronic kidney disease) Compression fracture Depression GERD (gastroesophageal reflux disease) Gout Hepatitis C Hypertension Liver cancer GUILLE (obstructive sleep apnea) Osteoporosis Surgical History H/O right wrist surgery History of right hip replacement Liver transplant recipient Presence of left artificial elbow joint Family History Mother Renal failure Father Diabetes mellitus Congestive heart failure Social History household members: none Smoking Status: Current some day smoker alcohol intake: former Assessment & Plan Assessment & Plan narrative: Earnest Wilks is a 54-year-old male with history alcoholic cirrhosis complicated by hep C, status post liver transplant at in 2011, CKD stage III, hypertension, GUILLE, gout, depression, GERD, and osteoporosis who presented to the emergency room with significant pain after a syncopal episode at home. 1. Syncope - suspect orthostatic nature given history. EKG unchanged compared to previous. - continue IV fluids preop -telemetry normal, discontinue 2. acute left lateral malleolar fracture and right bimalleolar fractures, pathologic due to osteoporosis, present on admission. -status post bilateral ORIF on 09/22/2020 -per ortho out of bed to chair transfers toe-touch weight-bearing only bilateral lower extremities. Follow-up [facility] in 2 weeks for x-rays and short-leg walking cast bilaterally. -preop/postop pain management complicated by patient on chronic opioid therapy -use dilaudid IV/po prn breakthrough pain but plan to taper off IV -PT/OT eval -will need SNF placement 3. Multiple chronic vertebral compression fractures, possible complete acute compression fractures of T9 and T10, pathologic due to osteoporosis - continue pain management as noted above. 4. SANDY, prerenal, on CKD stage III - admission cr 3.07 improved slightly after fluids to 2.2. CK unremarkable on admission labs. - Last known Creatinine was 1.8. Unclear baseline as previously reported basel ine per [facility] records of 2.6. 5. alcoholic and hep C cirrhosis s/p liver transplant, chronic, stable -continue rifaximin, cellcept, cyclosporine, ursodiol. 6. HTN - patient hypertensive on admission, taking metoprolol and lasix on admission. Continue metoprolol and resume Lasix postop 7. GERD, chronic, stable - continue home PPI 8. GUILLE, chronic - continue to monitor, can use home CPAP machine if available. 9. Chronic low back pain with opioid dependency -patient agrees fentanyl patch 25 mcg worked adequately for him at home for management of chronic pain, agrees that if he wants increase in fentanyl patch dosage it is best done through PCP, in addition he states he has a bottle of u nused Dilaudid pills at home for breakthrough pain, 10 acute severe protein calorie malnutrition - appreciate loom changeover operator consultation - continue nutritional supplementation. Malnutrition places patient at higher risk for complications from surgery, and likely contributed to risk of osteoporosis and fractures. Quality VTE Deep Vein Thrombosis/Pulmonary Embolism Present on Admission: No
[2020-09-24] VITALS (11 sets, daily range): BP systolic 110–177; BP diastolic 62–82; PULSE 65–114; RESP 16–20; TEMP 36.2–36.8; O2SAT 97–100
[2020-09-24] MEDS: SODIUM CHLORIDE 0.9% FLUSH 10 ML IV ×3 (03:09→20:35)
[2020-09-24] MEDS: HYDROMORPHONE 2 MG INJ IV ×2 (03:09→07:41)
--- NOTE | 2020-09-24 07:46 | PC.NURSE ---
Addendum entered by Alicia Spring R.N. 09/24/20 14:55: Patient sleeping most of the morning, PT in to work with patient around lunch, patient refused at that time, encouraged patient to take PO Dialudid at that time. Patient concerned that may not be effective. Pain 8/10. Patient noted to be tachy around 0930, HR irregular, tele placed per MD order. Patient denies chest pain, SOB, dizziness or lightheadedness. Original Note: Patient at rest with CPAP on this AM, when awake reports pain 8/10. PT in to work with patient at 0745, patient administered 2mg Dilaudid IV. IV site is patent and intact. Patient denies further needs at this time.
--- NOTE | 2020-09-24 08:13 | PT.IPTN ---
Current Diagnoses Displaced bimalleolar fracture of right lower leg, initial encounter for closed fracture (09/20/20) Surgery Performed Operation Date: 09/22/20 17:15 Actual Procedures p ORIF Ankle Fracture(Bilateral) - Monica Barros MD Physical Therapy Treatment Note M2 PT-IP Current Condition Start: 09/23/20 08:29 Freq: NEEDED Status: Active Protocol: Document 09/23/20 11:10 AW (Rec: 09/23/20 12:05 AW [id number]) Physical Therapy Current Condition Current Condition Evaluation Date 09/23/20 Treatment Diagnosis bilateral ankle fx s/p ORIF; T /S and L/S compression fx; difficulty walking Onset Date 09/20/20 Precautions Lumbar Precautions Log Roll,No Twisting,Limit Bending,Lifting Restriction of 10 lbs Other Precautions syncope; falls Weight Bearing Status Weight Bearing Status Touch Down Weight Bearing Allowed Weight Bearing Amount (enter % TDWB BLE or #) (%) M3 PT-IP Subjective Start: 09/23/20 08:29 Freq: NEEDED Status: Active Protocol: Document 09/24/20 07:40 SP (Rec: 09/24/20 09:46 SP [id number]) Subjective Physical Therapy Visit Type Type Treatment Note Visit Start Time 07:40 Visit Stop Time 08:13 Total Visit Minutes 33 Notes DIXON Lawson attended and provided instruction and assist when needed during tx. Supervised by GARRISON Allen. Number of REPAIR WELDER Visits 1 Physical Therapy Visit Comments Patient Comments Pt reported 8/10 B foot pain and just premedicated by nursing but wanting to work with therapy. Patient Goals Restore independent ambulation . Pt is aware of need for and is agreeable to SNF rehab Therapy Pain Assessment Pain When Pain Assessed At Rest Pain Present Pain Present Pain Reported Location Bilateral Leg Intensity 8 Scale Used Numeric (0 - 10) Description Aching,With Movement Pain Behaviors Facial Grimacing Pain Management Techniques Elevation,Re-positioning, Timing of Activity with Medications M4 PT-IP Mobility and Gait Start: 09/23/20 08:29 Freq: NEEDED Status: Active Protocol: Document 09/24/20 07:40 SP (Rec: 09/24/20 09:46 SP [id number]) PT-Bed Mobility Assessment Rolling Type of Rolling Log Rolling,Roll to Left Level of Assist Standby Assistance Supine to Sit Supine to Sit Standby Assistance Sit to Supine Sit to Supine Standby Assistance Scooting Scooting to Edge of Bed Contact Guard Assistance Scooting Up and Down in Bed Standby Assistance PT-Transfer Assessment Equipment Transfer Assistive Device Gait Belt,Sliding Board Orthotic/Prosthetic Devices or Brace: No Transfers Transfer Destination Bed,Wheelchair Transfer Technique Lateral Scoot Transfer Ability Level of Assist Contact Guard Assistance,Use of Upper Extremities Comments Mobility Comments Pt was sitting up in bed when arrived. Instructed pt again on back precaution occasional cuing including log roll. supine>LR L>sit> scoot to EOB using BUE and able mobilize BLE themselves. Therapists set up w/c with brakes engaged. Pt able to place slide board self then perform lateral scoot bed>w/c with Mod cuing for maintaining TTWB on BLE, tends to put more pressure than should through BLE to lateral scoot while using BUE wB on bed/board and w/c transition. Pt then repositioned B leg rests to support BLE. Pt completed w/c propel approx 235 ft around nursing station (stated did with nursing last night) wiht 3 stopped rest breaks for UE recovery tiring. Pt slide board transfer back to bed CGA with same cuing for awareness of ttwB BLE. Pt had call light and all needs inreach and bed alarmed for safety. Gait Assessment Comments Gait Comments Pt unable due to TDWB BLE. Stair Climbing Assessment Comments Stair Climbing Comments Pt unable due to TDWB BLE. PT-Balance Assessment Sitting Balance and Reactions Static Sitting Balance Ability Normal Dynamic Sitting Balance Ability Normal M5 PT-IP Objective Assessments Start: 09/23/20 08:29 Freq: NEEDED Status: Active Protocol: Document 09/23/20 11:10 AW (Rec: 09/23/20 12:05 AW [id number]) Orientation Orientation/Cognition Level of Alertness Alert Orientation Name,Day of Week,Place, Situation Language Function Ability No Deficits Noted Safety Awareness Decreased Safety Awareness Memory Description No Deficits Noted Gross Range of Motion Upper Extremity ROM Assessment Within Functional Limits Lower Extremity ROM Assessment Bilaterally Impaired Impairments B ankles in Koo splints Strength Upper Extremity Strength Assessment Within Functional Limits Lower Extremity Strength Assessment Bilaterally Impaired Hip 4/5 Knee 4/5 Sensation Assessment Sensation Gross Sensation WNL Comments Sensation Comments Pt denies numbness in distal BLE Muscle Tone Muscle Tone WNL Yes Other Assessments Other Other Assessments BP stable 120's/high 60's throughout evaluation with no complaint of dizziness. M6 PT-IP Treatment Start: 09/23/20 08:29 Freq: NEEDED Status: Active Protocol: Document 09/24/20 07:40 SP (Rec: 09/24/20 09:46 SP [id number]) Physical Therapy Treatment Education Education Provided Precautions,Weight Bearing Status,Safety Other Treatments Other Treatment Performed Educated pt on importance of maintaining core facilitaiton and no twisting precautions and making sure all components are in place prior to attempting slide board transfer then cuing for more WB throught BUE for lateral scoot to maintain TTWB BLE with verbal confirmation. M7 PT-IP Assessment and Plan Start: 09/23/20 08:29 Freq: NEEDED Status: Active Protocol: Document 09/24/20 07:40 SP (Rec: 09/24/20 09:46 SP [id number]) PT Summary Assessment and Plan Potential Rehabilitation Potential Good Status of Condition at Evaluation Stable Summary Impairments Pain,ROM,Strength,Balance,Bed Mobility,Transfers,Gait Progress Towards Goals Slow Progress due to Pain,Slow Progress due to Activity Tolerance Assessment Summary Earnest requires continued cuing education for maintaining TTWB BLE during slide board transfers CGA, pt able to position w/c, brake mgt and place/remove slide board self. Pt requires SNF rehab. Goals Bed Mobility Goal Standby Assistance Transfer Goal Standby Assistance,Slide Board Frequency of Treatment Frequency Of Treatment Twice a Day Treatment Plan Physical Therapy Treatment Plan Bed Mobility Training,Transfer Training,Therapeutic Exercise ,Balance Retraining,Post Op Education,Discharge Planning, Hot or Cold Pack,Neuromuscular Re-ed Other Recommendations and Next Treatment log roll, bed mobility, slide Focus board transfer to chair while maintain TTWB precautions, w/c , commode Recommendations To Nursing Amount of Assist Needed 1 Person Assist Discharge Recommendations PT Discharge Recommendations SNF Rehab Equipment Needed for Home Before defer to rehab setting Discharge Transportation Needs at Discharge Wheelchair/Cabulance
--- NOTE | 2020-09-24 08:59 | CM.DPC ---
Addendum entered by Joan Forrest LPN 09/24/20 09:12: [facility] She stated that [facility] were still no beds but that Kateryna had reviewed the initial referral information (which would not have included the surgery/OT/PT etc.) and that she was unclear where Kateryna stood on ? of acceptance. She states she will contact Kateryna today and followup. Agreed no need to send further clinical unless more is known about ? of possible acceptance. She says Kateryna's note on the case just said, no bed available. Addendum entered by Joan Forrest LPN 09/24/20 09:07: [facility] It is unclear if they have full referral packet as the beds were full earlier in the week. Original Note: DCP: continued: Left for Mary/[facility] Sood CC to ask re status of referral/? acceptance. [facility] will fax Dr. Gutierrez's progress note from last night as well as the OT eval. Will follow up later today. Pt is agreeable to this. Will update his later today as more is know re an accepting snf.
[2020-09-24] MEDS: FUROSEMIDE 20 MG TABLET PO (09:04)
[2020-09-24] MEDS: DULOXETINE 20 MG CAPSULE PO (09:04)
[2020-09-24] MEDS: allopurinoL 100 MG TABLET PO (09:04)
[2020-09-24] MEDS: ASPIRIN EC 81 MG TABLET PO ×2 (09:04→20:34)
[2020-09-24] MEDS: MYCOPHENOLATE MOFETIL 500 MG TABLET PO ×2 (09:05→20:34)
[2020-09-24] MEDS: METOPROLOL ER 25 MG TABLET PO (09:05)
[2020-09-24] MEDS: GABAPENTIN 300 MG CAPSULE PO ×2 (09:05→20:34)
[2020-09-24] MEDS: PANTOPRAZOLE 40 MG TABLET PO (09:07)
[2020-09-24] MEDS: ursodioL 300 MG CAPSULE PO ×2 (09:08→20:35)
[2020-09-24] MEDS: NEPHRO-VITE RX TABLET 1 TAB PO (09:08)
[2020-09-24] MEDS: RIFAXIMIN 550 MG TABLET PO ×2 (09:08→20:34)
[2020-09-24] MEDS: PYRIDOXINE (VITAMIN B6) 50 MG TABLET 100 MG PO (09:08)
--- NOTE | 2020-09-24 10:43 | CM.DPNOTE ---
Faxed clinicals to [facility] on 09/24/20 per Joan. Received fax confirmation. Penny Copeland CM Asst.
--- NOTE | 2020-09-24 10:44 | CM.DPNOTE ---
Faxed clinicals for referral to [facility] on [employer]. Fax confirmation received. Penny Copeland CM Asst.
--- NOTE | 2020-09-24 11:26 | P.PN_ITS ---
Subjective Subjective Date Patient Seen: 09/24/20 Time Patient Seen: 11:26 Interval history: Patient states he still having severe pain. No fever or chills. No nausea or vomiting. Exam Vital Signs (past 8 hours): - 09/24/20 08:28 09/24/20 09:05 Temperature 97.9 F Pulse Rate 105 H 114 H Respiratory Rate 20 Blood Pressure 110/77 110/77 Pulse Oximetry 100 Oxygen Delivery Method Room Air Oxygen Flow Rate 0 Narrative Exam Narrative: 54-year-old male resting comfortably in bed in no apparent distress. Splints are in place. Patient able to move all toes bilaterally. Good capillary refill bilaterally. Sensation grossly intact to light touch bilateral lower extremities. Objective Labs Result Diagrams: 09/23/20 05:44 09/22/20 08:02 [facility] Medical History Cirrhosis of liver CKD (chronic kidney disease) Compression fracture Depression GERD (gastroesophageal reflux disease) Gout Hepatitis C Hypertension Liver cancer GUILLE (obstructive sleep apnea) Osteoporosis Surgical History H/O right wrist surgery History of right hip replacement Liver transplant recipient Presence of left artificial elbow joint Family History Mother Renal failure Father Diabetes mellitus Congestive heart failure Social History household members: none Smoking Status: Current some day smoker alcohol intake: former Assessment & Plan Post-op Postoperative Procedures: Procedures Operation Date: 09/22/20 17:15 Actual Procedures Side Surgeon p ORIF Ankle Fracture Bilateral Monica Barros MD Postop day 2 status post open reduction internal fixation bilateral ankle by malleolar fractures with lateral plates bilaterally. Out of bed to chair transfers toe-touch weight-bearing bilateral lower extremities. Return to clinic in 2 weeks for x-rays of placement of short-leg walking cast bilaterally. Hospitalist following for syncope, chronic back pain, SANDY, pre renal, on CKD stage 3, alcoholic and hep C cirrhosis status post liver transplant Discharge when medically stable per hospitalist Quality VTE Deep Vein Thrombosis/Pulmonary Embolism Present on Admission: No
--- NOTE | 2020-09-24 11:46 | CM.DPC ---
Addendum entered by Joan Forrest LPN 09/24/20 16:03: Received update from Mary who stated that her DNS Priscilla wanted to have further discussion re the medications. Did let her know that the CM office closes for the day at 1600 but if she cannot call by then she can leave a confidential vm. Mary says they would not be able to take pt today due to lateness of the hour but referral is still active. DCP team to follow closely tomorrow. Dr. Gutierrez and DANITA martinez coordinator Shara are updated. Shara confirms that the pt's medication packages are now in the pharmacy for safe-keeping with understanding that they will be taken with him to the snf when he does d/c. Addendum entered by Joan Forrest LPN 09/24/20 13:00: [facility] S[facility] CC is voicing concern re pt's 2 anti-rejection medications, Xifaxan and Mycophenolate as these are financially beyond the financial capability of a snf setting to absorb into their daily rate. Conferred with Dr. Gutierrez, DANITA Vargas and then with pt. Pt points out that he brought all of his medications with him. He is given weekly medication packets by [facility] and these are delivered to him every month. Next delivery set for 10/18/20. Pt said he expected to bring these to the snf. I have been told not to let them out of my sight. Whitley Sood is updated and Mary will discuss with her director. In meantime, will fax snf orders for their review. Original Note: DCP: continued: spoke with pt to let him know that Dr. Gutierrez has stated he is ready for d/c today to an accepting snf setting. Let him know that [facility] is reviewing and is aware that d/c would be today. He is disappointed that he cannot go to snf in [place] ([facility] not contracted with [facility]) but says he is pleased that he can stay in critical access hospital. Clarified some of his information that seemed outdated in the documentation. He confirms that his PCP is Dr. Gayla Scott and has been since Natacha Martinezfunmilayo retired. Confirmed that he remains active on [employer] program with a caregiver who works for [employer] and is also his neighbor as his 3x week caregiver. His plan post snf is to return to his RV, likely with HH services and resumption of his [employer] caregivers (and perhaps with increase in hours if indicated). New COVID test in process now. Dr. Gutierrez has been updated and is doing the snf d/c orders. (with understanding that [facility] Sood is still reviewing.) PASRR: was completed 09/22 by ZENA Burns. Updated info is faxed to Whitley Sood/Mary to give to her team for further review. Will be following....
[2020-09-24 13:28] LABS: COVID19 -Nasal RAPID Negative (Negative)
[2020-09-24] MEDS: HYDROMORPHONE 4 MG TABLET PO ×2 (13:36→20:41)
--- NOTE | 2020-09-24 15:01 | OT.IPNOTE ---
Pt asleep , just prior,PT checked on the pt and he did not want to be seen for therapy. Check on the pt tomorrow.
--- NOTE | 2020-09-24 15:39 | PT-IP ANOTE ---
1328: checked on pt and pt stated that he needs 1 hour to eat his lunch. checked on pt again and pt has finished eating but refused PT. stated that he just wants to rest.
--- NOTE | 2020-09-24 17:23 | PM.PN.1 ---
Subjective Subjective Date Patient Seen: 09/24/20 Interval history: Patient is a 54-year-old male with history alcoholic cirrhosis complicated by hep C, status post liver transplant at in 2011, CKD stage III, hypertension, GUILLE, gout, depression, GERD, and osteoporosis who presented to the emergency room with significant pain after a syncopal episode at home. Admitted with bilateral malleolar ankle fractures. In addition thoracic MRI review by orthopedic surgery shows some bony edema at T9 and T10 consistent with completed acute compression fractures. Patient is postop day 2. Bilateral ankle ORIF. He is getting Dilaudid for postop pain. Exam Vital Signs (past 8 hours): - 09/24/20 10:00 09/24/20 12:35 Temperature 98.2 F Pulse Rate 80 66 Respiratory Rate 19 Blood Pressure 177/62 H Pulse Oximetry 99 Oxygen Delivery Method Room Air Oxygen Flow Rate 0 Narrative Exam Narrative: General: Alert and pleasant and does not appear in acute distress Objective Labs Result Diagrams: 09/23/20 05:44 09/22/20 08:02 Labs: Laboratory Results - last 24 hr 09/24/20 13:03 SARS-CoV-2 (PCR) Negative [facility] Medical History Cirrhosis of liver CKD (chronic kidney disease) Compression fracture Depression GERD (gastroesophageal reflux disease) Gout Hepatitis C Hypertension Liver cancer GUILLE (obstructive sleep apnea) Osteoporosis Surgical History H/O right wrist surgery History of right hip replacement Liver transplant recipient Presence of left artificial elbow joint Family History Mother Renal failure Father Diabetes mellitus Congestive heart failure Social History household members: none Smoking Status: Current some day smoker alcohol intake: former Assessment & Plan Assessment & Plan narrative: Earnest Wilks is a 54-year-old male with history alcoholic cirrhosis complicated by hep C, status post liver transplant at in 2011, CKD stage III, hypertension, GUILLE, gout, depression, GERD, and osteoporosis who presented to the emergency room with significant pain after a syncopal episode at home. 1. Syncope - suspect orthostatic nature given history. EKG unchanged compared to previous. - continue IV fluids preop -telemetry x-ray showed brief episode of atrial fibrillation but patient mostly in sinus rhythm, patient states this is not a new diagnosis and reason he is taking metoprolol 2. Acute left lateral malleolar fracture and right bimalleolar fractures, pathologic due to osteoporosis, present on admission. -status post bilateral ORIF on 09/22/2020 -per ortho out of bed to chair transfers toe-touch weight-bearing only bilateral lower extremities. Follow-up [facility] in 2 weeks for x-rays and short-leg walking cast bilaterally. -preop/postop pain management complicated by patient on chronic opioid therapy -discharge on oral Dilaudid 4 mg as needed for acute postop pain -PT/OT eval -SNF rehab 3. Multiple chronic vertebral compression fractures, possible complete acute compression fractures of T9 and T10, pathologic due to osteoporosis - continue pain management as noted above. 4. SANDY, prerenal, on CKD stage III - admission cr 3.07 improved slightly after fluids to 2.2. CK unremarkable on admission labs. - Last known Creatinine was 1.8. Unclear baseline as previously reported baseline per [facility] records of 2.6. 5. alcoholic and hep C cirrhosis s/p liver transplant, chronic, stable -continue rifaximin, cellcept, cyclosporine, ursodiol. 6. HTN - patient hypertensive on admission, taking metoprolol and lasix on admission. Continue metoprolol and resume Lasix postop 7. GERD, chronic, stable - continue home PPI 8. GUILLE, chronic - continue to monitor, can use home CPAP machine if available. 9. Chronic low back pain with opioid dependency -patient agrees fentanyl patch 25 mcg worked adequately for him at home for management of chronic pain, agrees that if he wants increase in fentanyl patch dosage it is best done through PCP, in addition he states he has a bottle of unused Dilaudid pills at home for breakthrough pain, 10 acute severe protein calorie malnutrition - appreciate heel seat trimmer consultation - continue nutritional supplementation. Malnutrition places patient at higher risk for complications from surgery, and likely contributed to risk of osteoporosis and fractures. 11. Paroxysmal atrial fibrillation -as noted he had brief episodes of AFib on tele which is not new diagnosis and rate controlled with metoprolol Patient would likely discharge Sunday to [facility] for detention rehab. Discharge orders and prescription for Dilaudid and his fentanyl patch were written and in chart. Quality VTE Deep Vein Thrombosis/Pulmonary Embolism Present on Admission: No
--- NOTE | 2020-09-24 18:36 | PC.NURSE ---
Assumed care of pt at 1500. Pt sleeping during bedside hand-off, and remained asleep until dinner. Awakens to voice. VSS, Sats 98% RA. Retuns to sleep. TURNING SANDER OPERATOR reports ST elevation on telemetry. MD notified. EKG ordered. Pt denies chest pain, pressure or discomfort.
[2020-09-24] MEDS: QUETIAPINE 25 MG TABLET PO (20:34)
[2020-09-25] VITALS (12 sets, daily range): BP systolic 101–138; BP diastolic 63–94; PULSE 57–83; RESP 16–18; TEMP 36.3–37.2; O2SAT 94–99
[2020-09-25] MEDS: CYCLOBENZAPRINE 10 MG TABLET PO ×3 (00:13→21:08)
--- NOTE | 2020-09-25 02:45 | PC.NURSE ---
Received call from [employer] asking if there was a third order for a Covid-19 serum test. I informed her to my knowledge there was only 2, and the most recent one was for prior admission to a care home facility. Both were negative.
[2020-09-25] MEDS: HYDROMORPHONE 4 MG TABLET PO ×5 (03:57→21:52)
[2020-09-25] MEDS: GABAPENTIN 300 MG CAPSULE PO ×2 (08:19→21:07)
[2020-09-25] MEDS: METOPROLOL ER 25 MG TABLET PO (08:19)
[2020-09-25] MEDS: ASPIRIN EC 81 MG TABLET PO ×2 (08:19→21:06)
[2020-09-25] MEDS: MYCOPHENOLATE MOFETIL 500 MG TABLET PO ×2 (08:19→21:08)
[2020-09-25] MEDS: FUROSEMIDE 20 MG TABLET PO (08:19)
[2020-09-25] MEDS: PANTOPRAZOLE 40 MG TABLET PO (08:19)
[2020-09-25] MEDS: DULOXETINE 20 MG CAPSULE PO (08:19)
[2020-09-25] MEDS: allopurinoL 100 MG TABLET PO (08:19)
[2020-09-25] MEDS: ursodioL 300 MG CAPSULE PO ×2 (08:20→21:09)
[2020-09-25] MEDS: PYRIDOXINE (VITAMIN B6) 50 MG TABLET 100 MG PO (08:20)
[2020-09-25] MEDS: RIFAXIMIN 550 MG TABLET PO ×2 (08:20→21:08)
[2020-09-25] MEDS: SODIUM CHLORIDE 0.9% FLUSH 10 ML IV ×2 (08:20→21:06)
[2020-09-25] MEDS: NEPHRO-VITE RX TABLET 1 TAB PO (08:21)
--- NOTE | 2020-09-25 10:43 | PM.DS.1 ---
History of Present Illness History of Present Illness Date Patient Seen: 09/25/20 Time Patient Seen: 10:43 Chief complaint: extreme pain Hx liver Transplant Narrative: Pain continues to be moderate to severe. Denies fever or chills. No nausea or vomiting. Discharge Providers Provider Date of admission: 09/20/20 11:16 Discharge Date: 09/25/20 Primary care physician: Natacha Rowley MD Consults: 09/20/20 11:11 Consult to Orthopedic Surgery Stat Comment: Consulting Provider: Monica Jeffers Reason for consultation: leg fractures Has provider been notified: Yes 09/20/20 13:06 Consult to Dietitian, Adult Routine Comment: Reason For Exam: weight loss Consult to Pastoral Services Routine Comment: Per patient request 09/21/20 02:37 Consult to Respiratory Therapy Evaluate & Treat Comment: Requesting CPAP for GUILLE Physician Instructions: Evaluate and treat 09/21/20 13:38 Consult to Physical Therapy Evaluate & Treat Comment: left ankle western walker Physician Instructions: Evaluate and Treat 09/22/20 21:41 Consult to Discharge Planning Routine Comment: Consult to Physical Therapy Evaluate & Treat Comment: Physician Instructions: Evaluate and Treat Consult to Respiratory Therapy Evaluate & Treat Comment: Physician Instructions: Evaluate and treat 09/23/20 10:57 Consult to Occupational Therapy Evaluate & Treat Comment: Physician Instructions: Evaluate and treat Discharge provider: Joe Olvera PA-C Summary Hospital Course Discharge Diagnosis: Right ankle bimalleolar fracture left ankle bimalleolar fracture Syncope, suspected orthostatic nature given history. EKG unchanged compared to previous. 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 He was medically stabilized for several days because of some increased creatinine and multiple medical problems and he is now brought to the operating room for open reduction internal fixation bilateral ankle fractures. Surgeon: Monica Jeffers Click Yes if Unassisted: Yes Anesthesia Type: General Operative Notes Findings: . Very soft bone, adequate reduction and internal fixation bilateral ankle fractures with a combination of locking and nonlocking screws. Closure Type: primary Specimen(s): none sent Prosthetic devices, grafts, tissues, transplants, or devices: Jeffers and nephew Evos 2.7 mm lateral ankle plates Applied: cast(s) Estimated Blood Loss (mL): 200 Blood products transfused: none Tourniquet time (min): 27 ( right 27, left 34) Patient admitted to the hospital for right ankle bimalleolar fracture, left ankle bimalleolar fracture underwent open reduction internal fixation bilateral ankle by malleolar fractures with lateral plate bilaterally September 22, 2020. Has progress as expected. Patient has been followed by hospitalist for multiple or medical diagnoses. Patient is stable and [facility]. Status at Discharge Cognitive/behavioral status at discharge: at baseline, oriented Functional status at discharge: wheelchair bound Overall status at discharge: patient is progressing back to baseline Time Spent with Patient Time spent: Less than 30 minutes Exam Vital Signs (past 8 hours): - 09/25/20 03:54 09/25/20 07:45 09/25/20 08:00 Temperature 97.6 F 97.4 F L Pulse Rate 63 60 Respiratory Rate 16 18 Blood Pressure 130/86 138/94 H Pulse Oximetry 99 99 94 Oxygen Delivery Method Room Air Oxygen Flow Rate 0 Narrative Exam Narrative: 54-year-old male resting comfortably in bed in no apparent distress. Splints are intact. Toes are warm and dry. Patient able to move all toes. Sensation grossly intact to light touch. Objective Labs Result Diagrams: 09/23/20 05:44 09/22/20 08:02 Labs: Laboratory Results - last 24 hr 09/24/20 13:03 SARS-CoV-2 (PCR) Negative [facility] Medical History Cirrhosis of liver CKD (chronic kidney disease) Compression fracture Depression GERD (gastroesophageal reflux disease) Gout Hepatitis C Hypertension Liver cancer GUILLE (obstructive sleep apnea) Osteoporosis Paroxysmal atrial fibrillation Surgical History H/O right wrist surgery History of right hip replacement Liver transplant recipient Presence of left artificial elbow joint Family History Mother Renal failure Father Diabetes mellitus Congestive heart failure Social History household members: none Smoking Status: Current some day smoker alcohol intake: former Discharge Assessment & Plan Assessment and Plan Assessment: Stable, progressing as expected Plan of Treatment: Out of bed to chair transfers toe-touch weight-bearing on bilateral lower extremities. Return to [facility] in 2 weeks for x-rays and placement of short-leg walking cast bilaterally. Discharge Plan Discharge Plan Patient Disposition: SNF Transfer to: [facility] Consult as needed: Dental, Hearing, Mental health, Podiatry and Vision Discharge orders & Medications Prescriptions: New aspirin 81 mg Tablet,Delayed Release (Dr/Ec) 81 mg PO BID 21 Days Qty: 42 RF: 0 hydromorphone 4 mg tablet 4 mg PO Q6H PRN (Reason: pain) Qty: 30 RF: 0 Continued furosemide 20 mg tablet 20 mg PO DAILY RF: 0 quetiapine [Seroquel] 25 mg Tablet 25 mg PO BEDTIME RF: 0 cyclobenzaprine 10 mg Tablet 10 mg PO PRN PRN (Reason: Spasms) RF: 0 cyclosporine modified 25 mg Capsule 25 mg PO BID RF: 0 ondansetron HCl [Zofran] 4 mg Tablet 4 mg PO Q8H PRN (Reason: Nausea) RF: 0 allopurinol 100 mg Tablet 100 mg PO DAILY RF: 0 mycophenolate mofetil [CellCept] 500 mg Tablet 500 mg PO BID RF: 0 lidocaine [Lidoderm] 5 % Adhesive Patch,Medicated 1 patch TOPICAL DAILY RF: 0 ursodiol 300 mg Capsule 300 mg PO BID RF: 0 gabapentin 300 mg Capsule 300 mg PO BID RF: 0 Kellie-Ramila 0.8 mg Tablet 1 tab PO DAILY RF: 0 pyridoxine (vitamin B6) 100 mg Tablet 100 mg PO DAILY RF: 0 fentanyl [Duragesic] 25 mcg/hr Patch 72 Hour See Rx Instructions .ROUTE .COMPLEX RF: 0 docusate sodium 250 mg Capsule 250 mg PO PRN PRN (Reason: Constipation) RF: 0 hydroxyzine pamoate [Vistaril] 25 mg Capsule 25 mg PO BEDTIME PRN (Reason: Itching) RF: 0 duloxetine [Cymbalta] 20 mg Capsule,Delayed Release(Dr/Ec) 20 mg PO DAILY RF: 0 acetaminophen [Tylenol] 325 mg Capsule 650 mg PO PRN PRN (Reason: Pain, Moderate) RF: 0 Narcan 4 mg/actuation [place],Non-Aerosol 1 spray INTRANASAL NOW PRN (Reason: (Drug) Ingestion) RF: 0 metoprolol succinate 25 mg Capsule,Sprinkle,Er 24hr 25 mg PO DAILY RF: 0 ondansetron 4 mg tablet,disintegrating 4 mg PO TID-QID PRN (Reason: nausea and vomiting) Qty: 10 RF: 0 pantoprazole [Protonix] 40 mg tablet,delayed release (DR/EC) 40 mg PO DAILY Qty: 30 RF: 0 Xifaxan 550 mg Tablet 550 mg PO BID RF: 0 Follow up/Referrals: Gayla Wheatley [Other] Monica Jeffers MD [Physician] - 10/07/20 11:00 am (appt:10/07 @ 11:10 check in at 11:[address] jeffers @ [address] [place] [address] ) Discharge Health Status Multidrug resistant organism: No MDRO Precautions: [place] Diet/Activity/Treatments Diet: Regular Liquid consistency: Normal/Thin Food texture: Regular [facility] Reason for rehabilitation: Post-operative therapy Rehab type: Physical therapy and Occupational therapy Restrictions to mobility: Out of bed to chair transfers toe-touch weight-bearing bilateral lower extremities. Discharge Data Primary Care Provider: Natacha Rowley VTE Deep Vein Thrombosis/Pulmonary Embolism Present on Admission: No
--- NOTE | 2020-09-25 11:36 | OT.IP.TRT ---
Current Diagnoses Displaced bimalleolar fracture of right lower leg, initial encounter for closed fracture (09/20/20) Surgery Performed Operation Date: 09/22/20 17:15 Actual Procedures p ORIF Ankle Fracture(Bilateral) - Monica Barros MD Occupational Therapy Treatment Note M2 OT-IP Current Condition Start: 09/23/20 18:26 Freq: Status: Active Protocol: Document 09/23/20 18:27 CCC (Rec: 09/23/20 18:43 CCC [id number]) Occupational Therapy Current Condition Current Condition Evaluation Date 09/23/20 Treatment Diagnosis Bilateral ankle fx s/p ORIF Diagnosis Onset Date 09/20/20 Weight Bearing Status Weight Bearing Status Touch Down Weight Bearing Allowed Weight Bearing Amount (enter % BLE TDWB or #) (%) M3 OT- IP Subjective and Pain Start: 09/23/20 18:26 Freq: Status: Active Protocol: Document 09/25/20 11:36 CGR (Rec: 09/25/20 11:36 CGR [id number]) OT- Subjective Occupational Therapy Visit Type Type Administrative Note Notes Attempted to see pt for OT services. Pt declines all activities at this time. Will hold and continue to follow.
--- NOTE | 2020-09-25 11:56 | PC.NURSE ---
Patient A/O x 4, c/o 7/10 pain in bilat ankles and back. PRN PO Dilaudid administered. Pulses equal bilat DP. CMS intact. Patient able to wiggle toes. Denies numbness or tingling in lower extremities. Patient has not been OOB except with PT. Moving independently in the bed. Tele on, lungs clear, pt on room air, denies SOB, chest pain or concerns at this time. IV patent. Call light in reach.
--- NOTE | 2020-09-25 12:26 | CM.DPC ---
Addendum entered by Lara Finley R.N. 09/25/20 15:21: Called [facility] in [place]. Megan is now in admissions there, used to be Page. Her phone number is: [phone]. Her fax number is: [phone]. She will review, they do take Reza. Stated she can start auth this week-end. Addendum entered by Lara Finley R.N. 09/25/20 14:49: Angelia at [facility] called back and stated that they can't accept patient secondary to no availabilities. Addendum entered by Lara Finley R.N. 09/25/20 13:42: Faxed [facility] updated P.T/O.T. notes, as well as DC summary. Also, sent DC summary to [facility] and P.t. notes, and indicated on fax that patient is ready for DC today, but have not heard from them. Patient will not be able to discharge until there is an accepting facility. Original Note: DCP Cont: Patient did not discharge to [facility] yesterday secondary to time, for it was late in the day. Called [facility] twice, have left Nery in admissions a message. Called the main number at [facility], and they stated, there is no one in admissions, but you can call Nery's phone, which is the number that this equipment planner has tried. Referral has already been sent to [facility], last week, and they stated that they would not take. Had spoken to Kateryna at [facility] last week, and they mentioned that they were getting full, but consider. Went ahead and called [facility], spoke to Angelia in admissions. Stated, they still have the referral and could consider. She would need to first get Reza authorization, which would not happen today, since it is the week-end. Angelia stated that she will consult with Kateryna this week-end. She still has the referral, but let her know that this equipment planner will send over latest P.T. notes. P: Patient has discharge orders, but no accepting facility as of yet. Will fax over P.T. notes to [facility]. May call some other facilities, such as [facility], as well. Lara Finley RN/Power Digger Operator
--- NOTE | 2020-09-25 13:52 | P.PN_ITS ---
Subjective Subjective Date Patient Seen: 09/25/20 Time Patient Seen: 13:52 Interval history: Patient is a 54-year-old male with history alcoholic cirrhosis complicated by hep C, status post liver transplant at in 2011, CKD stage III, hypertension, GUILLE, gout, depression, GERD, and osteoporosis who presented to the emergency room with significant pain after a syncopal episode at home. Admitted with bilateral malleolar ankle fractures. In addition thoracic MRI review by orthopedic surgery shows some bony edema at T9 and T10 consistent with completed acute compression fractures. Patient is postop day 3. Bilateral ankle ORIF. Now pending placement [facility] accepting facility at this time. Pending bed. Exam Vital Signs (past 8 hours): - 09/25/20 07:45 09/25/20 08:00 09/25/20 11:00 Temperature 97.4 F L Pulse Rate 60 57 L Respiratory Rate 18 16 Blood Pressure 138/94 H 110/72 Pulse Oximetry 99 94 97 09/25/20 12:00 Temperature Pulse Rate Respiratory Rate Blood Pressure Pulse Oximetry 97 Oxygen Delivery Method Room Air Oxygen Flow Rate 0 Narrative Exam Narrative: no apparent distress, appears comfortable. Bilateral plints are intact. RRR without m/r/g. lungs CTA b/l. Toes are warm and dry. Patient able to move all toes. Sensation grossly normal to light touch bilaterally. Objective Labs Result Diagrams: 09/23/20 05:44 09/22/20 08:02 [facility] Medical History Cirrhosis of liver CKD (chronic kidney disease) Compression fracture Depression GERD (gastroesophageal reflux disease) Gout Hepatitis C Hypertension Liver cancer GUILLE (obstructive sleep apnea) Osteoporosis Paroxysmal atrial fibrillation Surgical History H/O right wrist surgery History of right hip replacement Liver transplant recipient Presence of left artificial elbow joint Family History Mother Renal failure Father Diabetes mellitus Congestive heart failure Social History household members: none Smoking Status: Current some day smoker alcohol intake: former Assessment & Plan Assessment & Plan narrative: Earnest Wilks is a 54-year-old male with history alcoholic cirrhosis complicated by hep C, status post liver transplant at in 2011, CKD stage III, hypertension, GUILLE, gout, depression, GERD, and osteoporosis who presented to the emergency room with significant pain after a syncopal episode at home. 1. Syncope - suspect orthostatic nature given history. EKG unchanged compared to previous. -telemetry normal, discontinue 2. acute left lateral malleolar fracture and right bimalleolar fractures, pa thologic due to osteoporosis, present on admission. -status post bilateral ORIF on 09/22/2020 -per ortho out of bed to chair transfers toe-touch weight-bearing only bilateral lower extremities. Follow-up [facility] in 2 weeks for x-rays and short-leg walking cast bilaterally. -preop/postop pain management complicated by patient on chronic opioid therapy -use dilaudid IV/po prn breakthrough pain but plan to taper off IV -PT/OT eval -will need SNF placement 3. Multiple chronic vertebral compression fractures, possible complete acute compression fractures of T9 and T10, pathologic due to osteoporosis - continue pain management as noted above. 4. SANDY, prerenal, on CKD stage III - admission cr 3.07 improved slightly after fluids to 2.2. CK unremarkable on admission labs. Will repeat BMP tomorrow. - Last known Creatinine was 1.8. Unclear baseline as previously reported baseline per [facility] records of 2.6. 5. alcoholic and hep C cirrhosis s/p liver transplant, chronic, stable -continue rifaximin, cellcept, cyclosporine, ursodiol. 6. HTN - patient hypertensive on admission, taking metoprolol and lasix on admission. Continued metoprolol and resume Lasix postop 7. GERD, chronic, stable - continue home PPI 8. GUILLE, chronic - continue to monitor, can use home CPAP machine if available. 9. Chronic low back pain with opioid dependency -patient agrees fentanyl patch 25 mcg worked adequately for him at home for management of chronic pain, agrees that if he wants increase in fentanyl patch dosage it is best done through PCP. Additional pain relief with PO hydrocodone and currently has breakthough medications with IV. 10 acute severe protein calorie malnutrition - appreciate greeting card maker consultation - continue nutritional supplementation. Malnutrition places patient at higher risk for complications from surgery, and likely contributed to risk of osteopo rosis and fractures. Dispo: pending SNF, no accepting facility at this time. Appreciate care manage ment in searching for placement. Quality VTE Deep Vein Thrombosis/Pulmonary Embolism Present on Admission: No
--- NOTE | 2020-09-25 14:37 | PT.IPTN ---
Current Diagnoses Displaced bimalleolar fracture of right lower leg, initial encounter for closed fracture (09/20/20) Surgery Performed Operation Date: 09/22/20 17:15 Actual Procedures p ORIF Ankle Fracture(Bilateral) - Monica Barros MD Physical Therapy Treatment Note M2 PT-IP Current Condition Start: 09/23/20 08:29 Freq: NEEDED Status: Active Protocol: Document 09/23/20 11:10 AW (Rec: 09/23/20 12:05 AW [id number]) Physical Therapy Current Condition Current Condition Evaluation Date 09/23/20 Treatment Diagnosis bilateral ankle fx s/p ORIF; T /S and L/S compression fx; difficulty walking Onset Date 09/20/20 Precautions Lumbar Precautions Log Roll,No Twisting,Limit Bending,Lifting Restriction of 10 lbs Other Precautions syncope; falls Weight Bearing Status Weight Bearing Status Touch Down Weight Bearing Allowed Weight Bearing Amount (enter % TDWB BLE or #) (%) M3 PT-IP Subjective Start: 09/23/20 08:29 Freq: NEEDED Status: Active Protocol: Document 09/25/20 12:37 LJ (Rec: 09/25/20 14:37 LJ [id number]) Subjective Physical Therapy Visit Type Type Treatment Note Visit Start Time 12:37 Visit Stop Time 01:05 Total Visit Minutes 28 Number of UX DEVELOPER DESIGNER Visits 2 Physical Therapy Visit Comments Patient Comments pt states he intends to go home within 2 weeks Patient Goals Restore independent ambulation . Pt is aware of need for and is agreeable to SNF rehab Therapy Pain Assessment Pain When Pain Assessed During Mobility Pain Present Pain Present Pain Reported M4 PT-IP Mobility and Gait Start: 09/23/20 08:29 Freq: NEEDED Status: Active Protocol: Document 09/25/20 12:37 LJ (Rec: 09/25/20 14:37 LJ [id number]) PT-Bed Mobility Assessment Rolling Type of Rolling Log Rolling,Roll to Left Level of Assist Standby Assistance Supine to Sit Supine to Sit Standby Assistance Sit to Supine Sit to Supine Standby Assistance PT-Transfer Assessment Transfers Transfer Destination Bed,Wheelchair Transfer Technique Lateral Scoot Transfer Ability Level of Assist Contact Guard Assistance,Use of Upper Extremities Comments Mobility Comments Pt was sitting up in bed upon arrival. SBA for all bed mobility. Pt positioned WC next to bed with minimal assist from therapist. While retrieving slide board from PT office, which took less than 45 seconds, pt had transfered himself to unattended. Pt then wheeled himself down the hallway 200' and back to south end of acute care. Upon return to bed pt refused to use the slide board and lifted himself into the bed and repositioned himself. Pt refused assist from therapist and acted impulsively. He was given all needs within reach. Gait Assessment Comments Gait Comments Pt unable due to TDWB BLE. M5 PT-IP Objective Assessments Start: 09/23/20 08:29 Freq: NEEDED Status: Active Protocol: Document 09/23/20 11:10 AW (Rec: 09/23/20 12:05 AW [id number]) Orientation Orientation/Cognition Level of Alertness Alert Orientation Name,Day of Week,Place, Situation Language Function Ability No Deficits Noted Safety Awareness Decreased Safety Awareness Memory Description No Deficits Noted Gross Range of Motion Upper Extremity ROM Assessment Within Functional Limits Lower Extremity ROM Assessment Bilaterally Impaired Impairments B ankles in Koo splints Strength Upper Extremity Strength Assessment Within Functional Limits Lower Extremity Strength Assessment Bilaterally Impaired Hip 4/5 Knee 4/5 Sensation Assessment Sensation Gross Sensation WNL Comments Sensation Comments Pt denies numbness in distal BLE Muscle Tone Muscle Tone WNL Yes Other Assessments Other Other Assessments BP stable 120's/high 60's throughout evaluation with no complaint of dizziness. M6 PT-IP Treatment Start: 09/23/20 08:29 Freq: NEEDED Status: Active Protocol: Document 09/25/20 12:37 LJ (Rec: 09/25/20 14:37 LJ [id number]) Physical Therapy Treatment Education Education Provided Precautions,Weight Bearing Status,Safety Other Treatments Other Treatment Performed Pt was again educated on importance of proper transfers and that how he transfered himself was not safe. M7 PT-IP Assessment and Plan Start: 09/23/20 08:29 Freq: NEEDED Status: Active Protocol: Document 09/25/20 12:37 LJ (Rec: 09/25/20 14:37 LJ [id number]) PT Summary Assessment and Plan Potential Rehabilitation Potential Good Status of Condition at Evaluation Stable Summary Impairments Pain,ROM,Strength,Balance,Bed Mobility,Transfers,Gait Progress Towards Goals Slow Progress due to Pain,Slow Progress due to Activity Tolerance Assessment Summary Pt unwilling to listen to therapist directions and cumpulsively transfered himself into and out of the WC refusing to use slide board. He was informed that it was not safe to put weight into the feet nor twist his body as he did but he did not appear to listen. Pt requires close monitoring and should not be allowed to have the WC near him until other props are in place for safe transfer. He acts impulsively and is not safe to transfer self. He appears to know how to lock brakes on WC but pushed them in wrong direction each time he transfered. Goals Bed Mobility Goal Standby Assistance Transfer Goal Standby Assistance,Slide Board Frequency of Treatment Frequency Of Treatment Twice a Day Treatment Plan Physical Therapy Treatment Plan Bed Mobility Training,Transfer Training,Therapeutic Exercise ,Balance Retraining,Post Op Education,Discharge Planning, Hot or Cold Pack,Neuromuscular Re-ed Other Recommendations and Next Treatment log roll, bed mobility, slide Focus board transfer to chair while maintain TTWB precautions, w/c , commode Recommendations To Nursing Amount of Assist Needed 1 Person Assist Discharge Recommendations PT Discharge Recommendations SNF Rehab Equipment Needed for Home Before defer to rehab setting Discharge Transportation Needs at Discharge Wheelchair/Cabulance
--- NOTE | 2020-09-25 16:37 | PC.NURSE ---
Addendum entered by Cat Lang R.N. 09/25/20 21:20: Pt wakes from loud snoring sleep and requests pain meds. R.T. in to set up pt's cpap and pt states is independently able to place it when ready to do so. Given flexeril and will monitor for relief prior to administering further narcotics. Pt has slept most of this shift. No change in neurovascular status this shift. Addendum entered by Cat Lang R.N. 09/25/20 19:55: SCD's are not on patient as pt has bulky casts to BL LE's. Addendum entered by Cat Lang R.N. 09/25/20 18:18: Wakes to ask for pain meds for back and BL LE's pain 8/. Po pain meds given and pt set up for evening meal. Original Note: Pt mostly sleeping in bed @ beginning of shift. Wakens easily for vital signs as per REVERBERATORY FURNACE SUPERVISOR and requests pain medications. This singer songwriter enters pt's room shortly thereafter and pt with eyes closed resting quietly. Discussion with pt re frequency of oral dilaudid and flexeril as ordered by MD. Pt c/o back pain and right lateral ankle pain 8/10. Warm blankets to back and pt reports good relief. Quickly returns to soundly sleeping state.
[2020-09-25] MEDS: QUETIAPINE 25 MG TABLET PO (21:08)
[2020-09-26] VITALS (12 sets, daily range): BP systolic 105–146; BP diastolic 61–86; PULSE 60–80; RESP 14–18; TEMP 36.4–36.9; O2SAT 96–99
[2020-09-26] MEDS: HYDROMORPHONE 4 MG TABLET PO ×5 (03:47→20:19)
[2020-09-26 05:43] LABS: BUN Creatinine Ratio 29.7 (6-22); Blood Urea Nitrogen 60 mg/dL (9-20); Calcium 8.1 mg/dL (8.4-10.2); Carbon Dioxide 27 mmol/L (22-32); Chloride 107 mmol/L (98-107); Estimated Glomerular Filt Rate 34.3 mL/min (>60); Glucose 97 mg/dL (70-100); HEMOLYSIS 16 (0-50); Potassium 4.2 mmol/L (3.4-5.1); Sodium 135 mmol/L (137-145)
[2020-09-26] MEDS: CYCLOBENZAPRINE 10 MG TABLET PO ×2 (06:17→14:17)
[2020-09-26] MEDS: FUROSEMIDE 20 MG TABLET PO (08:03)
[2020-09-26] MEDS: RIFAXIMIN 550 MG TABLET PO ×2 (08:03→20:17)
[2020-09-26] MEDS: GABAPENTIN 300 MG CAPSULE PO ×2 (08:04→20:16)
[2020-09-26] MEDS: allopurinoL 100 MG TABLET PO (08:04)
[2020-09-26] MEDS: DULOXETINE 20 MG CAPSULE PO (08:04)
[2020-09-26] MEDS: ASPIRIN EC 81 MG TABLET PO ×2 (08:05→20:15)
[2020-09-26] MEDS: MYCOPHENOLATE MOFETIL 500 MG TABLET PO ×2 (08:06→20:16)
[2020-09-26] MEDS: PANTOPRAZOLE 40 MG TABLET PO (08:06)
[2020-09-26] MEDS: METOPROLOL ER 25 MG TABLET PO (08:06)
[2020-09-26] MEDS: ursodioL 300 MG CAPSULE PO ×2 (08:08→20:18)
[2020-09-26] MEDS: PYRIDOXINE (VITAMIN B6) 50 MG TABLET 100 MG PO (08:09)
[2020-09-26] MEDS: NEPHRO-VITE RX TABLET 1 TAB PO (08:19)
--- NOTE | 2020-09-26 09:39 | PM.PN.1 ---
Subjective Subjective Date Patient Seen: 09/26/20 Time Patient Seen: 09:39 Interval history: Patient states his pain is improving. No fever or chills. No nausea or vomiting. Exam Vital Signs (past 8 hours): - 09/26/20 03:00 09/26/20 03:45 09/26/20 08:00 Temperature 97.6 F 98.4 F Pulse Rate 64 60 Respiratory Rate 16 18 Blood Pressure 128/86 146/85 H Pulse Oximetry 96 96 98 09/26/20 08:06 Temperature Pulse Rate 60 Respiratory Rate Blood Pressure 146/85 H Pulse Oximetry Oxygen Delivery Method Room Air Oxygen Flow Rate 0 Narrative Exam Narrative: Resting comfortably in bed in no apparent distress. Splints are intact. Toes are warm and dry. Patient able to move all toes. Sensation grossly intact to light touch. Objective Labs Result Diagrams: 09/23/20 05:44 09/26/20 04:50 Labs: Laboratory Results - last 24 hr 09/26/20 04:50 Sodium 135 L Potassium 4.2 Chloride 107 Carbon Dioxide 27 BUN 60 H Creatinine 2.02 H Estimated GFR 34.3 L BUN/Creatinine Ratio 29.7 H Glucose 97 Calcium 8.1 L PFSH Medical History Cirrhosis of liver CKD (chronic kidney disease) Compression fracture Depression GERD (gastroesophageal reflux disease) Gout Hepatitis C Hypertension Liver cancer GUILLE (obstructive sleep apnea) Osteoporosis Paroxysmal atrial fibrillation Surgical History H/O right wrist surgery History of right hip replacement Liver transplant recipient Presence of left artificial elbow joint Family History Mother Renal failure Father Diabetes mellitus Congestive heart failure Social History household members: none Smoking Status: Current some day smoker alcohol intake: former Assessment & Plan Assessment & Plan narrative: Postop day 4 status post open reduction internal fixation bilateral ankle bimalleolar fractures with lateral plates bilaterally. Out of bed to chair transfers toe-touch weight-bearing bilateral lower extremities. Return to clinic in 2 weeks for x-rays of placement of short-leg walking cast bilaterally. Hospitalist following for syncope, chronic back pain, SANDY, pre renal, on CKD stage 3, alcoholic and hep C cirrhosis status post liver transplant Discharge when medically stable per hospitalist Quality VTE Deep Vein Thrombosis/Pulmonary Embolism Present on Admission: No
--- NOTE | 2020-09-26 10:35 | CM.DPC ---
DCP SNF Planning: Per MD, pt remains stable to d/c but awaiting an official accepting facility and to confirm [facility] auth has been obtained. Per previous notes, [facility] but had questions related to his anti-rejection meds (which pt has in safe here at hospital and plans to use at SNF). KRISSY called [facility] again this morning at 0830 and left msg requesting urgent call back to confirm if they received [facility] auth and confirm they accept. KR[facility]SY also called [facility] and left msg inquiring about their review and if they accept and can start [facility] auth. [facility] decline pt and [facility] not contracted with [facility]. Plan: SW to follow closely for return calls from [facility] and [facility] to determine which can accept and if auth in place. Last COVID completed on 09/24/20at [id number]. ZENA Montaño
--- NOTE | 2020-09-26 10:58 | PT.IPTN ---
Current Diagnoses Displaced bimalleolar fracture of right lower leg, initial encounter for closed fracture (09/20/20) Surgery Performed Operation Date: 09/22/20 17:15 Actual Procedures p ORIF Ankle Fracture(Bilateral) - Monica Barros MD Physical Therapy Treatment Note M2 PT-IP Current Condition Start: 09/23/20 08:29 Freq: NEEDED Status: Active Protocol: Document 09/23/20 11:10 AW (Rec: 09/23/20 12:05 AW [id number]) Physical Therapy Current Condition Current Condition Evaluation Date 09/23/20 Treatment Diagnosis bilateral ankle fx s/p ORIF; T /S and L/S compression fx; difficulty walking Onset Date 09/20/20 Precautions Lumbar Precautions Log Roll,No Twisting,Limit Bending,Lifting Restriction of 10 lbs Other Precautions syncope; falls Weight Bearing Status Weight Bearing Status Touch Down Weight Bearing Allowed Weight Bearing Amount (enter % TDWB BLE or #) (%) M3 PT-IP Subjective Start: 09/23/20 08:29 Freq: NEEDED Status: Active Protocol: Document 09/26/20 10:38 AW (Rec: 09/26/20 10:58 AW [id number]) Subjective Physical Therapy Visit Type Type Treatment Note Visit Start Time 09:57 Visit Stop Time 10:14 Total Visit Minutes 17 Number of MANAGER RISK MANAGEMENT Visits 0 Physical Therapy Visit Comments Patient Comments Pt willing to work with PT Therapy Pain Assessment Pain When Pain Assessed During Mobility Pain Present Pain Present Pain Reported M4 PT-IP Mobility and Gait Start: 09/23/20 08:29 Freq: NEEDED Status: Active Protocol: Document 09/26/20 10:38 AW (Rec: 09/26/20 10:58 AW [id number]) PT-Bed Mobility Assessment Rolling Type of Rolling Log Rolling,Roll to Left Level of Assist Standby Assistance Supine to Sit Supine to Sit Standby Assistance Sit to Supine Sit to Supine Standby Assistance Scooting Scooting to Edge of Bed Standby Assistance Scooting Up and Down in Bed Standby Assistance PT-Transfer Assessment Equipment Transfer Assistive Device Gait Belt,Sliding Board Orthotic/Prosthetic Devices or Brace: No Transfers Transfer Destination Bed,Wheelchair Transfer Technique Lateral Scoot Transfer Ability Level of Assist Contact Guard Assistance,Use of Upper Extremities Comments Mobility Comments Pt was reclined in bed as PT arrived. Reviewed weightbearing status with pt who verbalized understanding. Instructed pt in pressure relief/ elbow extension exercise and asked pt to use this movement for scooting to minimize BLE weightbearing. Pt required assist to position the wheelchair but then placed the slide board himself and completed slide board transfer to the w/c CGA with improved attention to minimizing BLE weightbearing. PT assisted to place w/c arm and to position BLE on footplates. PT wheeled the pt out of the room. Pt self-propelled the w/c with BUE 75 feet x 3 with rest breaks in between. On return to the room, pt refused sitting up on the chair. PT removed the left arm of the w/ c and pt placed the slide board and returned to the bed via lateral scoot. Bed alarm was armed for safety. Pt was left with call light and all needs in reach, BLE elevated on multiple pillows. Gait Assessment Comments Gait Comments Pt unable due to TDWB BLE. M5 PT-IP Objective Assessments Start: 09/23/20 08:29 Freq: NEEDED Status: Active Protocol: Document 09/23/20 11:10 AW (Rec: 09/23/20 12:05 AW [id number]) Orientation Orientation/Cognition Level of Alertness Alert Orientation Name,Day of Week,Place, Situation Language Function Ability No Deficits Noted Safety Awareness Decreased Safety Awareness Memory Description No Deficits Noted Gross Range of Motion Upper Extremity ROM Assessment Within Functional Limits Lower Extremity ROM Assessment Bilaterally Impaired Impairments B ankles in Koo splints Strength Upper Extremity Strength Assessment Within Functional Limits Lower Extremity Strength Assessment Bilaterally Impaired Hip 4/5 Knee 4/5 Sensation Assessment Sensation Gross Sensation WNL Comments Sensation Comments Pt denies numbness in distal BLE Muscle Tone Muscle Tone WNL Yes Other Assessments Other Other Assessments BP stable 120's/high 60's throughout evaluation with no complaint of dizziness. M6 PT-IP Treatment Start: 09/23/20 08:29 Freq: NEEDED Status: Active Protocol: Document 09/26/20 10:38 AW (Rec: 09/26/20 10:58 AW [id number]) Physical Therapy Treatment Education Education Provided Precautions,Weight Bearing Status,Safety M7 PT-IP Assessment and Plan Start: 09/23/20 08:29 Freq: NEEDED Status: Active Protocol: Document 09/26/20 10:38 AW (Rec: 09/26/20 10:58 AW [id number]) PT Summary Assessment and Plan Summary Impairments Pain,ROM,Strength,Balance,Bed Mobility,Transfers,Gait Progress Towards Goals Slow Progress due to Pain,Slow Progress due to Activity Tolerance Assessment Summary Pt agreeable and cooperative today. He responded well to tricep pushup/pressure relief exercise and was able to apply same to slide board transfer to minimize BLE weightbearing. Pt requires SNF rehab to improve functional mobility before return home. Due to weightbearing restrictions and plateau in progress, PT plan of care will change to once/ day at this time. Goals Bed Mobility Goal Standby Assistance Transfer Goal Standby Assistance,Slide Board Frequency of Treatment Frequency Of Treatment Once a Day Treatment Plan Physical Therapy Treatment Plan Bed Mobility Training,Transfer Training,Therapeutic Exercise ,Balance Retraining,Post Op Education,Discharge Planning, Hot or Cold Pack,Neuromuscular Re-ed Other Recommendations and Next Treatment log roll, bed mobility, slide Focus board transfer to chair while maintain TTWB precautions, w/c , commode Recommendations To Nursing Amount of Assist Needed 1 Person Assist Discharge Recommendations PT Discharge Recommendations SNF Rehab Equipment Needed for Home Before defer to rehab setting Discharge Transportation Needs at Discharge Wheelchair/Cabulance
[2020-09-26] MEDS: polyethylene glycoL 3350 17 GM POWD.PACK PO (11:36)
[2020-09-26] MEDS: BISACODYL 10 MG SUPP PR (11:36)
[2020-09-26] MEDS: DOCUSATE 100 MG CAPSULE PO ×2 (11:36→20:15)
--- NOTE | 2020-09-26 12:59 | PM.PN.1 ---
Subjective Subjective Date Patient Seen: 09/26/20 Time Patient Seen: 12:59 Interval history: Patient is a 54-year-old male with history alcoholic cirrhosis complicated by hep C, status post liver transplant at in 2011, CKD stage III, hypertension, GUILLE, gout, depression, GERD, and osteoporosis who presented to the emergency room with significant pain after a syncopal episode at home. Admitted with bilateral malleolar ankle fractures. In addition thoracic MRI review by orthopedic surgery shows some bony edema at T9 and T10 consistent with completed acute compression fractures. Patient is postop day 4. Bilateral ankle ORIF. States pain is improving today, now feels that he is on a good routine. Now pending placement at SNF however no accepting facility at this time. Pending bed. Exam Vital Signs (past 8 hours): - 09/26/20 08:00 09/26/20 08:06 09/26/20 12:00 Temperature 98.4 F 98.5 F Pulse Rate 60 60 68 Respiratory Rate 18 17 Blood Pressure 146/85 H 146/85 H 109/72 Pulse Oximetry 99 98 Oxygen Delivery Method Room Air Oxygen Flow Rate 0 Narrative Exam Narrative: no apparent distress, appears comfortable. Bilateral plints are intact. RRR without m/r/g. lungs CTA b/l. Toes are warm and dry. Patient able to move all toes. Sensation grossly normal to light touch bilaterally. Objective Labs Result Diagrams: 09/23/20 05:44 09/26/20 04:50 Labs: Laboratory Results - last 24 hr 09/26/20 04:50 Sodium 135 L Potassium 4.2 Chloride 107 Carbon Dioxide 27 BUN 60 H Creatinine 2.02 H Estimated GFR 34.3 L BUN/Creatinine Ratio 29.7 H Glucose 97 Calcium 8.1 L [facility] Medical History Cirrhosis of liver CKD (chronic kidney disease) Compression fracture Depression GERD (gastroesophageal reflux disease) Gout Hepatitis C Hypertension Liver cancer GUILLE (obstructive sleep apnea) Osteoporosis Paroxysmal atrial fibrillation Surgical History H/O right wrist surgery History of right hip replacement Liver transplant recipient Presence of left artificial elbow joint Family History Mother Renal failure Father Diabetes mellitus Congestive heart failure Social History household members: none Smoking Status: Current some day smoker alcohol intake: former Assessment & Plan Assessment & Plan narrative: Earnest Wilks is a 54-year-old male with history 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 1. Syncope - suspect orthostatic nature given history. EKG unchanged compared to previous. -telemetry normal, discontinued 2. acute left lateral malleolar fracture and right bimalleolar fractures, pathologic due to osteoporosis, present on admission. -status post bilateral ORIF on 09/22/2020 -per ortho out of bed to chair transfers toe-touch weight-bearing only bilateral lower extremities. Follow-up [facility] in 2 weeks for x-rays and short-leg walking cast bilaterally. -preop/postop pain management complicated by patient on chronic opioid therapy -use dilaudid IV/po prn breakthrough pain but plan to taper off IV -PT/OT eval -will need SNF placement 3. Multiple chronic vertebral compression fractures, possible complete acute compression fractures of T9 and T10, pathologic due to osteoporosis - continue pain management as noted above. 4. SANDY, prerenal, on CKD stage III. SANDY resolved. - admission cr 3.07 improved slightly after fluids to 2.2. CK unremarkable on admission labs. Now improved to 2.02 on todays labs. - Last known Creatinine was 1.8. Unclear baseline as previously reported baseline per [facility] records of 2.6. 5. alcoholic and hep C cirrhosis s/p liver transplant, chronic, stable -continue rifaximin, cellcept, cyclosporine, ursodiol. 6. HTN - patient hypertensive on admission, taking metoprolol and lasix on admission. Continued metoprolol and resume Lasix postop 7. GERD, chronic, stable - continue home PPI 8. GUILLE, chronic - continue to monitor, can use home CPAP machine if available. 9. Chronic low back pain with opioid dependency -patient agrees fentanyl patch 25 mcg worked adequately for him at home for management of chronic pain, agrees that if he wants increase in fentanyl patch dosage it is best done through PCP. Additional pain relief with PO hydrocodone and currently has breakthough medications with IV. 10 acute severe protein calorie malnutrition - appreciate process trainer consultation - continue nutritional supplementation. Malnutrition places patient at higher risk for complications from surgery, and likely contributed to risk of osteoporosis and fractures. Dispo: pending SNF, no accepting facility at this time. Appreciate care management in searching for placement. Quality VTE Deep Vein Thrombosis/Pulmonary Embolism Present on Admission: No
[2020-09-26] MEDS: fentaNYL 25 MCG/PATCH TOP (15:59)
--- NOTE | 2020-09-26 16:57 | PC.NURSE ---
Addendum entered by Cat Lang R.N. 09/26/20 20:23: Pt mostly sleeping soundly with snoring, but when awakens immediately pushes call light and requests pain pills from staff. Consistently rates back and ankle pain 8/10. Rouses easily to voice and engages staff in conversation. Addendum entered by Cat Lang R.N. 09/26/20 19:32: BL scd's not placed on pt as pt has BL casts to LE in place. Addendum entered by Cat Lang R.N. 09/26/20 17:00: Discussion with pt re expiration of current iv site. Pt expresses desire to have iv removed versus have this restarted. Dr. Austin was consulted and verbal order can remove iv and leave out. This was done and documented. Original Note: Pt asks for pain medications as shift begins. White board reflects times medications were given on dayshift and pt was reminded and encouraged to review those times for next doses. Pt's fentanyl patch replaced to right upper arm as per pt's request for placement. Old patch removed. Po dilaudid to treat pain to back and ankles BL 8/10. Admits to full sensation to exposed toes from casts BL. Able to wiggle toes to feet BL with warm and pink exposed toes. Warm blankets to back.
[2020-09-26] MEDS: QUETIAPINE 25 MG TABLET PO (20:16)
[2020-09-26] MEDS: SENNOSIDES 8.6 MG TABLET 17.2 MG PO (20:17)
[2020-09-26] MEDS: BISACODYL 5 MG TABLET 10 MG PO (20:18)
[2020-09-27] VITALS (10 sets, daily range): BP systolic 111–133; BP diastolic 56–73; PULSE 60–85; RESP 16–20; TEMP 36.9–37.2; O2SAT 94–100
[2020-09-27] MEDS: HYDROMORPHONE 4 MG TABLET PO ×6 (00:02→23:43)
[2020-09-27] MEDS: DOCUSATE 100 MG CAPSULE PO ×2 (08:29→20:16)
[2020-09-27] MEDS: ASPIRIN EC 81 MG TABLET PO ×2 (08:29→20:16)
[2020-09-27] MEDS: RIFAXIMIN 550 MG TABLET PO ×2 (08:29→20:17)
[2020-09-27] MEDS: MYCOPHENOLATE MOFETIL 500 MG TABLET PO ×2 (08:32→20:16)
[2020-09-27] MEDS: GABAPENTIN 300 MG CAPSULE PO ×2 (08:32→20:16)
[2020-09-27] MEDS: allopurinoL 100 MG TABLET PO (08:32)
[2020-09-27] MEDS: FUROSEMIDE 20 MG TABLET PO (08:33)
[2020-09-27] MEDS: DULOXETINE 20 MG CAPSULE PO (08:33)
[2020-09-27] MEDS: PANTOPRAZOLE 40 MG TABLET PO (08:33)
[2020-09-27] MEDS: NEPHRO-VITE RX TABLET 1 TAB PO (08:34)
[2020-09-27] MEDS: ursodioL 300 MG CAPSULE PO ×2 (08:34→20:17)
[2020-09-27] MEDS: PYRIDOXINE (VITAMIN B6) 50 MG TABLET 100 MG PO (08:34)
--- NOTE | 2020-09-27 08:51 | CM.DPC ---
Addendum entered by Lara Finley R.N. 09/27/20 10:40: Radha called back from [facility]. She was inquiring about the anti-resistance medications for his liver cancer. Gave her the names of the medications, and let her know that these medications would be coming with patient, for they are delivered here routinely from [facility]. Also, she wanted to know if patient is on a CPAP, for they do not accept patients on CPAPS. Confirmed with nurse, Bianca, that patient has a CPAP, but has not been using. Called Radha at [facility] and gave her a message regarding CPAP. She is consulting with [facility] on this patient to see if they may be able to accept. Also, left a message at [facility]. Their phone number is: [phone]. Also, left a message with Walter Martin through community services, since patient is on [facility]. His number is: [phone], for any assisted living assistant or ideas that he may have to assist with patient's discharge. According to P.T, he is still toe touch weight bearing, but is still having to use sliding board. Original Note: DCP Cont: Left a message with Nery at [facility], have not yet heard back. Called Megan in admissions at [facility], have left her a message as well. Clinical information was already faxed to her. Called [facility] in [place] and spoke to Radha in admissions. Stated, they can do a single case agreement for [place]. Gave her patient's name and date, and she will review. She has a meeting and will call this family preservation caseworker back after reviewing. P: DCP will continue to work on finding accepting facility. May also attempt to reach out to [facility] as well. So far, [facility], [facility] is pending response, [facility] will review. [facility] is full, [facility] will not accept. [facility] tan [facility]ath[facility] will review, but Jaz in admissions is not back in the office until tomorrow. Have left her a message. Lara Finley RN/Medical Instrument Technician
--- NOTE | 2020-09-27 09:41 | OT.IPNOTE ---
Attempted to see pt for OT treatment and pt states not at this time as trying to pay his bills. Pt states not wanting to try to shower , but agreed to sponge off later.
[2020-09-27] MEDS: CYCLOBENZAPRINE 10 MG TABLET PO ×2 (09:48→18:23)
--- NOTE | 2020-09-27 10:15 | PM.PNPO.1 ---
Subjective Subjective Date Patient Seen: 09/27/20 Time Patient Seen: 10:15 Interval history: Patient states his pain is well controlled. Denies fever or chills. No nausea or vomiting. Exam Vital Signs (past 8 hours): - 09/27/20 04:00 09/27/20 04:30 09/27/20 08:00 Temperature 98.4 F 98.4 F Pulse Rate 67 60 Respiratory Rate 16 16 Blood Pressure 127/63 126/64 Pulse Oximetry 99 99 100 09/27/20 09:00 Temperature Pulse Rate Respiratory Rate Blood Pressure Pulse Oximetry 100 Oxygen Delivery Method Room Air Oxygen Flow Rate 0 Narrative Exam Narrative: Pleasant 54-year-old male at bedside working with physical therapy. Able to move all toes. Good capillary refill. Toes are warm and dry. No calf pain to palpation bilaterally. Objective Labs Result Diagrams: 09/23/20 05:44 09/26/20 04:50 [facility] Medical History Cirrhosis of liver CKD (chronic kidney disease) Compression fracture Depression GERD (gastroesophageal reflux disease) Gout Hepatitis C Hypertension Liver cancer GUILLE (obstructive sleep apnea) Osteoporosis Paroxysmal atrial fibrillation Surgical History H/O right wrist surgery History of right hip replacement Liver transplant recipient Presence of left artificial elbow joint Family History Mother Renal failure Father Diabetes mellitus Congestive heart failure Social History household members: none Smoking Status: Current some day smoker alcohol intake: former Assessment & Plan Post-op Postoperative Procedures: Procedures Operation Date: 09/22/20 17:15 Actual Procedures Side Surgeon p ORIF Ankle Fracture Bilateral Monica Barros MD Patient progressing as expected. Out of bed to chair with toe-touch weight-bearing bilateral lower extremities. Follow-up 2 weeks postop schedule [facility] for x-rays and placement of short-leg walking cast bilaterally. Discharge when medically stable to [facility]p facility. Quality VTE Deep Vein Thrombosis/Pulmonary Embolism Present on Admission: No
--- NOTE | 2020-09-27 10:45 | PT.IPTN ---
Current Diagnoses Displaced bimalleolar fracture of right lower leg, initial encounter for closed fracture (09/20/20) Surgery Performed Operation Date: 09/22/20 17:15 Actual Procedures p ORIF Ankle Fracture(Bilateral) - Monica Barros MD Physical Therapy Treatment Note M2 PT-IP Current Condition Start: 09/23/20 08:29 Freq: NEEDED Status: Active Protocol: Document 09/23/20 11:10 AW (Rec: 09/23/20 12:05 AW [id number]) Physical Therapy Current Condition Current Condition Evaluation Date 09/23/20 Treatment Diagnosis bilateral ankle fx s/p ORIF; T /S and L/S compression fx; difficulty walking Onset Date 09/20/20 Precautions Lumbar Precautions Log Roll,No Twisting,Limit Bending,Lifting Restriction of 10 lbs Other Precautions syncope; falls Weight Bearing Status Weight Bearing Status Touch Down Weight Bearing Allowed Weight Bearing Amount (enter % TDWB BLE or #) (%) M3 PT-IP Subjective Start: 09/23/20 08:29 Freq: NEEDED Status: Active Protocol: Document 09/27/20 10:37 AW (Rec: 09/27/20 10:45 AW [id number]) Subjective Physical Therapy Visit Type Type Treatment Note Visit Start Time 10:00 Visit Stop Time 10:25 Total Visit Minutes 25 Number of MENTAL RETARDATION AIDE Visits 0 Physical Therapy Visit Comments Patient Comments Pt willing to work with PT Therapy Pain Assessment Pain When Pain Assessed At Rest Pain Present Pain Present Pain Reported M4 PT-IP Mobility and Gait Start: 09/23/20 08:29 Freq: NEEDED Status: Active Protocol: Document 09/27/20 10:37 AW (Rec: 09/27/20 10:45 AW [id number]) PT-Bed Mobility Assessment Rolling Type of Rolling Log Rolling,Roll to Left Level of Assist Standby Assistance Supine to Sit Supine to Sit Standby Assistance Sit to Supine Sit to Supine Standby Assistance Scooting Scooting to Edge of Bed Standby Assistance Scooting Up and Down in Bed Standby Assistance PT-Transfer Assessment Equipment Transfer Assistive Device Gait Belt,Sliding Board Orthotic/Prosthetic Devices or Brace: No Transfers Transfer Destination Bed,Wheelchair Transfer Technique Lateral Scoot Transfer Ability Level of Assist Contact Guard Assistance,Use of Upper Extremities Comments Mobility Comments Pt reclined in bed as PT arrived. He participated in BLE supine exercises. He completed log roll to his left and SL to sit SBA. He sat EOB and completed sitting exercises without complaint of increased pain. He then completed slide board transfer to w/c set up on his right side CGA. He appropriately set the w/c brakes and positioned the slide board. He needed cues for increased lift with BUE to minimize LE weightbearing. Pt was wheeled to the hallway where he self- propelled the w/c using BUE ~ 150 feet with one short rest break. On return to the room, pt completed slide board transfer back to bed CGA and repositioned himself in anticipation of OT arriving soon. Bed alarm on for safety. Gait Assessment Comments Gait Comments Pt unable due to TDWB BLE. M5 PT-IP Objective Assessments Start: 09/23/20 08:29 Freq: NEEDED Status: Active Protocol: Document 09/23/20 11:10 AW (Rec: 09/23/20 12:05 AW [id number]) Orientation Orientation/Cognition Level of Alertness Alert Orientation Name,Day of Week,Place, Situation Language Function Ability No Deficits Noted Safety Awareness Decreased Safety Awareness Memory Description No Deficits Noted Gross Range of Motion Upper Extremity ROM Assessment Within Functional Limits Lower Extremity ROM Assessment Bilaterally Impaired Impairments B ankles in Koo splints Strength Upper Extremity Strength Assessment Within Functional Limits Lower Extremity Strength Assessment Bilaterally Impaired Hip 4/5 Knee 4/5 Sensation Assessment Sensation Gross Sensation WNL Comments Sensation Comments Pt denies numbness in distal BLE Muscle Tone Muscle Tone WNL Yes Other Assessments Other Other Assessments BP stable 120's/high 60's throughout evaluation with no complaint of dizziness. M6 PT-IP Treatment Start: 09/23/20 08:29 Freq: NEEDED Status: Active Protocol: Document 09/27/20 10:37 AW (Rec: 09/27/20 10:45 AW [id number]) Physical Therapy Treatment Education Education Provided Precautions,Weight Bearing Status,Safety Other Treatments Other Treatment Performed Pt completed BLE quad sets, heel slides, straight leg lifts, supine hip abduction; seated LAQ with manual resistance, resisted knee flexion, resisted hip adduction and abduction. ZULEIKA Olvera clarified that pt would likely be TDWB for 6 weeks post surgery. PT reinforced education on WB status. M7 PT-IP Assessment and Plan Start: 09/23/20 08:29 Freq: NEEDED Status: Active Protocol: Document 09/27/20 10:37 AW (Rec: 09/27/20 10:45 AW [id number]) PT Summary Assessment and Plan Summary Impairments Pain,ROM,Strength,Balance,Bed Mobility,Transfers,Gait Progress Towards Goals Slow Progress due to Pain,Slow Progress due to Activity Tolerance Assessment Summary Pt tolerated supine and seated ther ex today and was open to instruction to complete more exercises later in the day. He continues to require cues to lift more with BUE during transfers to minimize BLE weightbearing. Pt requires SNF rehab to improve strength, endurance, and functional mobility prior to return to independent living. Goals Bed Mobility Goal Standby Assistance Transfer Goal Standby Assistance,Slide Board Frequency of Treatment Frequency Of Treatment Once a Day Treatment Plan Physical Therapy Treatment Plan Bed Mobility Training,Transfer Training,Therapeutic Exercise ,Balance Retraining,Post Op Education,Discharge Planning, Hot or Cold Pack,Neuromuscular Re-ed Other Recommendations and Next Treatment log roll, bed mobility, slide Focus board transfer to chair while maintain TTWB precautions, w/c , commode Recommendations To Nursing Amount of Assist Needed 1 Person Assist Discharge Recommendations PT Discharge Recommendations SNF Rehab Equipment Needed for Home Before defer to rehab setting Discharge Transportation Needs at Discharge Wheelchair/Cabulance
--- NOTE | 2020-09-27 10:48 | OT.IP.TRT ---
Current Diagnoses Displaced bimalleolar fracture of right lower leg, initial encounter for closed fracture (09/20/20) Surgery Performed Operation Date: 09/22/20 17:15 Actual Procedures p ORIF Ankle Fracture(Bilateral) - Monica Barros MD Occupational Therapy Treatment Note M2 OT-IP Current Condition Start: 09/23/20 18:26 Freq: Status: Active Protocol: Document 09/23/20 18:27 [facility] (Rec: 09/23/20 18:43 [facility] [id number]) Occupational Therapy Current Condition Current Condition Evaluation Date 09/23/20 Treatment Diagnosis Bilateral ankle fx s/p ORIF Diagnosis Onset Date 09/20/20 Weight Bearing Status Weight Bearing Status Touch Down Weight Bearing Allowed Weight Bearing Amount (enter % BLE TDWB or #) (%) M3 OT- IP Subjective and Pain Start: 09/23/20 18:26 Freq: Status: Active Protocol: Document 09/27/20 10:49 [facility] (Rec: 09/27/20 10:57 [facility] [id number]) OT- Subjective Occupational Therapy Visit Type Type Treatment Note Visit Start Time 10:25 Visit Stop Time 10:48 Total Visit Minutes 23 Occupational Therapy Visit Comments Patient Comments Pt agreed to sponge off while in bed. Patient/Caregiver Goals To go to skilled rehab. OT Pain Assessment Pain When Pain Assessed During Mobility Pain Present Pain Present Pain Reported Location Bilateral Foot Intensity 7 Scale Used Numeric (0 - 10) M4 OT- IP ADL's Start: 09/23/20 18:26 Freq: Status: Active Protocol: Document 09/27/20 10:49 [facility] (Rec: 09/27/20 10:57 [facility] [id number]) OT ADL-Oral Care Comments Oral Care Comments Pt states to brush his teeth after lunch. OT ADL-Dressing General Eval Lower Body Dressing Ability Standby Assistance Areas Needing Assistance Retrieving/Set-up of Clothing Comments OT Dressing Comments VC to roll side to side to help put on brief. OT ADL-Toileting Comments OT Toileting Comments Pt able to use urinal on his own. OT ADL-Bathing Bathing Type Bathing Type Sponge Bath General Evaluation Bathing Ability Minimal Assistance Areas Needing Assistance Wash/Dry Back Comments OT Bathing Comments Pt just needing assist to wash /dry his back. M5 OT- IP IADL's Start: 09/23/20 18:26 Freq: Status: Active Protocol: Document 09/23/20 18:27 [facility] (Rec: 09/23/20 18:43 [facility] [id number]) OT-Instrumental Activities of Daily Living Home Safety Awareness Awareness of Need for Assistance at Home Good Awareness Ability to Problem Solve Emergency Able to Problem Solve Situations Medication Management Medication Management No Deficits Identified Money Management Money Management No Deficits Identified Meal Preparation Meal Preparation Comments At this time pt would need assist for all IADl needs. Outside Residential Sales Professional Outside Residential Sales Professional Comments At this time pt would need assist for all IADl needs. M6 OT- IP Functional Cognition Start: 09/23/20 18:26 Freq: Status: Active Protocol: Document 09/27/20 10:49 [facility] (Rec: 09/27/20 10:57 [facility] [id number]) Cognitive Factors Limiting Selfcare Function Cognitive Ability Safety Awareness Underestimates Need for Assistance Cognitive Comments Cognitive Assessment Comments Pt still impulsive and needing reminders for safety to incorporate log rolling when getting dressed due to compression fractures. Pt also tends to pull up into long sitting and reminded best to do log rolling at this time. M7 OT- IP Mobility and Balance Start: 09/23/20 18:26 Freq: Status: Active Protocol: Document 09/23/20 18:27 [facility] (Rec: 09/23/20 18:43 [facility] [id number]) OT- Bed Mobility Assessment Rolling Level of Assistance Standby Assistance Supine to Sit Supine to Sit Assist Standby Assistance Sit to Supine Sit to Supine Assist Standby Assistance OT-Transfer Assessment Transfers Transfer Ability Contact Guard Assistance,1 Person Assistance Technique Transfer Destination Bed,Chair Transfer Technique Lateral Scoot Devices Transfer Assistive Devices Gait Belt,Sliding Board Comments Mobility Comments Pt needing assist for sliding board placement and CGA for balance and to keep from pushing down too much on his feet. OT- Balance Assessment Sitting Balance and Reactions Static Sitting Balance Ability Normal Dynamic Sitting Balance Ability Normal M8 OT- IP Objective Assessments Start: 09/23/20 18:26 Freq: Status: Active Protocol: Document 09/23/20 18:27 [facility] (Rec: 09/23/20 18:43 [facility] [id number]) OT Gross Range of Motion Upper Extremity Range of Motion Assessment Within Functional Limits OT Strength Upper Extremity Strength Assessment Within Functional Limits M9 OT- IP Assessment and Plan Start: 09/23/20 18:26 Freq: Status: Active Protocol: Document 09/27/20 10:49 [facility] (Rec: 09/27/20 10:57 [facility] [id number]) OT Summary Assessment and Plan Potential Rehabilitation Potential Good Analytic Complexity at Evaluation Moderate Summary OT Impairments Functional Cognition, Functional Mobility,Dressing, Toileting,Bathing,Toilet Transfers,Shower Transfers Progress Towards Goals Slow Progress due to Cognition Assessment Summary Pt still needing reminders to incorporate log rolling for bed mobility needs. Pt not wanting to shower today but agreed to sponge off. Pt states may be open to try to get into the shower tomorrow. Pt will still benefit from skilled rehab to continue to work on independence with safety for ADl and functional mobility needs. Goals Dressing Goal Independent Toileting Goal Independent Bathing Goal Independent Toilet Transfer Goal Independent Shower Transfer Goal Independent Days to Meet Goals 20 Frequency of Treatment Frequency Of Treatment Once a Day Treatment Plan OT Treatment Plan ADL Training,Functional Mobility,Patient/Family Education,Discharge Planning Other Treatment Recommendations and Next shower Treatment Focus Discharge Recommendations OT Discharge Recommendations SNF Rehab Home Equipment Needs defer to SNF Transportation Needs at Discharge Wheelchair/Cabulance
--- NOTE | 2020-09-27 11:30 | CM.DPC ---
Addendum entered by Lara Finley R.N. 09/27/20 15:12: Lacy at [facility] called back and stated that they can accept patient on Sunday, in case Whitley Brogan does not work out. Will pass on in hand-off to next child welfare caseworker. She would like an update tomorrow to see if [facility] Sood does accept, otherwise, she will have to work on an insurance auth. Addendum entered by Lara Finley R.N. 09/27/20 14:11: Nery at [facility] called back. She stated that she had already spoken to pharmacist, Sanjay. She indicated that they would drop off dose of his medications at their facility. Stated that after the months supply, Whitley Sood would call [facility], and they would mail additional doses. Nery confirmed acceptance, unable to take today, because she indicated that she does not yet have Reza authorization. She is hopeful, that she will have it this pm, or in the am. She indicated that they are currently reviewing. Plan is for Whitley Sood tomorrow as long as authorization is in place. PASSR is completed. Updated nurse, Bianca, and Adriana, nursing aide. Patient will need updated COVID tomorrow. Patient currently sleeping, have not yet been able to update him. Addendum entered by Lara Finley R.N. 09/27/20 13:26: Lacy weber [facility], in admissions, called back. She had some questions regarding why patient is on Seroquel, for they would need a diagnosis at discharge, as well as how patient would get to his appointment follow up with [facility] in two weeks. Let her know that patient most likely will have Medicaid transport benefit, and that they can set this up. Also, she had questions about wound care, and if patient needed IV antibiotics. Let her know that patient does not need IV antibiotics at discharge, as well as no current would care. Nery at [facility] also called back, and gave her Sanjay, pharmacist at [facility]'s phone number, and she will contact and get back to this service planner. Addendum entered by Lara Finley R.N. 09/27/20 12:47: Radha ward [facility] called back. She stated that her nursing attendant, as well as the medical practice administrator reviewed and confirmed that they can't accept patient. She indicated that it's not the medications, they are doable, for she priced them out through [facility]'s pharmacy. She mentioned that they are not allowed to accept home medications as well. She stated that it is because of the discharge plan. Stated that they feel uncomfortable with the time that patient is going to need, especially discharging back to his , when he will need more caregivers. Let her know that this patient currently has JUSTICE caregivers, and that this service planner has left him a message. Will continue to look for alternative placement. Original Note: DCP Cont: Was able to get in touch with Mary, who is taking over for Nery in admissions, who is out of town. Confirmed that Mary has the same phone number as Nery. Have left several messages, and did not receive responses over the week-end, or earlier this morning. After calling bernadine wilson, they transferred this service planner back to [facility]. Asked her about acceptance, for let her know that the original plan was for patient to discharge Sunday, and patient has been medically discharged. She indicated that her director strategic account management was supposed to talk to Joan about having the two medications delivered. Let her know that this child welfare caseworker has been working with patient for the last couple of days, and have not heard back. Mary indicated that she will have her director strategic account management call back. Her name is Priscilla. This service planner called Sanjay at [facility]. He mentioned that they do not deliver to [place], but can bubble pack a months worth of his medications, he would just have to get them from the nurse, if patient is discharging today. This child welfare caseworker attempted to call Mary back, and her mail box on her phone is full. Attempted to call the main number, they transferred this service planner again to a full mail box. Called the main number at [facility] and asked for director strategic account management, Priscilla. Left her a message on her voice mail to call this service planner back. In the message, let her know that patient can go with a month's worth of medications. P: DCP to continue to work on discharge. [place] back from [facility], they do not take Reza. Will also follow up with Andres and Lucy as well. Will leave another voice mail with Jaz weber [facility], but she is not in the office until tomorrow. Lara Finley RN/Job Analysis Manager
--- NOTE | 2020-09-27 16:28 | PM.PN.1 ---
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 Admitted with bilateral malleolar ankle fractures. In addition thoracic MRI review by orthopedic surgery shows some bony edema at T9 and T10 consistent with completed acute compression fractures. Patient is postop day 5. Bilateral ankle ORIF. States pain is improving today, now feels that he is on a good routine. Now pending placement at SNF, accepted to a facility but plan for discharge tomorrow. Exam Vital Signs (past 8 hours): - 09/27/20 09:00 09/27/20 11:31 09/27/20 13:10 Temperature 98.7 F Pulse Rate 77 Respiratory Rate 16 Blood Pressure 111/56 L Pulse Oximetry 100 99 99 09/27/20 16:09 Temperature 98.9 F Pulse Rate 76 Respiratory Rate 20 Blood Pressure 116/57 L Pulse Oximetry 97 Oxygen Delivery Method Room Air Oxygen Flow Rate 0 Narrative Exam Narrative: no apparent distress, appears comfortable. Bilateral splints are intact. RRR without m/r/g. lungs CTA b/l. Toes are warm and dry. Patient able to move all toes. Sensation grossly normal to light touch bilaterally. Objective Labs Result Diagrams: 09/23/20 05:44 09/26/20 04:50 [facility] Medical History Cirrhosis of liver CKD (chronic kidney disease) Compression fracture Depression GERD (gastroesophageal reflux disease) Gout Hepatitis C Hypertension Liver cancer GUILLE (obstructive sleep apnea) Osteoporosis Paroxysmal atrial fibrillation Surgical History H/O right wrist surgery History of right hip replacement Liver transplant recipient Presence of left artificial elbow joint Family History Mother Renal failure Father Diabetes mellitus Congestive heart failure Social History household members: none Smoking Status: Current some day smoker alcohol intake: former Assessment & Plan Assessment & Plan narrative: Earnest Wilks is a 54-year-old male with history 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 1. Syncope - suspect orthostatic nature given history. EKG unchanged compared to previous. -telemetry normal, discontinued 2. acute left lateral malleolar fracture and right bimalleolar fractures, pathologic due to osteoporosis, present on admission. -status post bilateral ORIF on 09/22/2020 -per ortho out of bed to chair transfers toe-touch weight-bearing only bilateral lower extremities. Follow-up [facility] in 2 weeks for x-rays and short-leg walking cast bilaterally. -preop/postop pain management complicated by patient on chronic opioid therapy -now on PO therapies, IV removed. -PT/OT eval -SNF placement planned for tomorrow. 3. Multiple chronic vertebral compression fractures, possible complete acute compression fractures of T9 and T10, pathologic due to osteoporosis - continue pain management as noted above. 4. SANDY, prerenal, on CKD stage III. SANDY resolved. - admission cr 3.07 improved slightly after fluids to 2.2. CK unremarkable on admission labs. Now improved to 2.02. - Last known Creatinine was 1.8. Unclear baseline as previously reported baseline per [facility] records of 2.6. 5. alcoholic and hep C cirrhosis s/p liver transplant, chronic, stable -continue rifaximin, cellcept, cyclosporine, ursodiol. 6. HTN - patient hypertensive on admission, taking metoprolol and lasix on admission. Continued metoprolol and resume Lasix postop 7. GERD, chronic, stable - continue home PPI 8. GUILLE, chronic - continue to monitor, can use home CPAP machine if available. 9. Chronic low back pain with opioid dependency -patient agrees fentanyl patch 25 mcg worked adequately for him at home for management of chronic pain, agrees that if he wants increase in fentanyl patch dosage it is best done through PCP. Additional pain relief with PO hydrocodone and currently has breakthough medications with IV. 10 acute severe protein calorie malnutrition - appreciate wellness program administrator consultation - continue nutritional supplementation. Malnutrition places patient at higher risk for complications from surgery, and likely contributed to risk of osteoporosis and fractures. Dispo: pending SNF,accepted to facility plan for discharge tomorrow. Repeat COVID 19 testing today. Quality VTE Deep Vein Thrombosis/Pulmonary Embolism Present on Admission: No
[2020-09-27 18:39] LABS: COVID19 -Nasal RAPID Negative (Negative)
[2020-09-27] MEDS: QUETIAPINE 25 MG TABLET PO (20:17)
[2020-09-27] MEDS: SENNOSIDES 8.6 MG TABLET 17.2 MG PO (20:17)
[2020-09-28] VITALS (16 sets, daily range): BP systolic 106–155; BP diastolic 49–83; PULSE 67–93; RESP 16–20; TEMP 36.6–37.2; O2SAT 97–100
[2020-09-28] MEDS: CYCLOBENZAPRINE 10 MG TABLET PO ×3 (02:04→19:02)
[2020-09-28] MEDS: HYDROMORPHONE 4 MG TABLET PO ×5 (03:14→21:06)
--- NOTE | 2020-09-28 07:45 | PM.PNPO.1 ---
Subjective Subjective Date Patient Seen: 09/28/20 Time Patient Seen: 07:45 Interval history: Postop day 6 status post open reduction internal fixation bilateral ankle bimalleolar fractures with lateral plates bilaterally with Dr. Barros. Patient is doing well this AM. Does complain of some pain. He states therapy is going well. He is setting up his motor home with a lift, but is anticipating going to [facility] for continued care. Exam Vital Signs (past 8 hours): - 09/28/20 00:00 09/28/20 01:00 09/28/20 04:00 Temperature 97.8 F 98.6 F Pulse Rate 92 H 89 Respiratory Rate 16 16 Blood Pressure 155/73 H 120/76 Pulse Oximetry 99 98 99 09/28/20 05:00 Temperature Pulse Rate Respiratory Rate Blood Pressure Pulse Oximetry 99 Oxygen Delivery Method Room Air Oxygen Flow Rate 0 Narrative Exam Narrative: Patient lying in bed in NAD. He is alert and oriented X3. Splints are well fitting. He is able to wiggle his toes. Brisk capillary refill in both feet. SILT throughout BLEs. Objective Labs Result Diagrams: 09/23/20 05:44 09/26/20 04:50 Labs: Laboratory Results - last 24 hr 09/27/20 18:15 SARS-CoV-2 (PCR) Negative ON LICENSE OF [facility] Medical History Cirrhosis of liver CKD (chronic kidney disease) Compression fracture Depression GERD (gastroesophageal reflux disease) Gout Hepatitis C Hypertension Liver cancer GUILLE (obstructive sleep apnea) Osteoporosis Paroxysmal atrial fibrillation Surgical History H/O right wrist surgery History of right hip replacement Liver transplant recipient Presence of left artificial elbow joint Family History Mother Renal failure Father Diabetes mellitus Congestive heart failure Social History household members: none Smoking Status: Current some day smoker alcohol intake: former Assessment & Plan Post-op Postoperative Procedures: Procedures Operation Date: 09/22/20 17:15 Actual Procedures Side Surgeon p ORIF Ankle Fracture Bilateral Monica Barros MD Postop day 6 status post open reduction internal fixation bilateral ankle bimalleolar fractures with lateral plates bilaterally. Out of bed to chair transfers toe-touch weight-bearing bilateral lower extremities. Return to clinic 2 weeks PO for x-rays and placement of short-leg walking cast bilaterally. Continue ASA 81 mg BID for VTE prophylaxis. We reviewed pre-operative fracture x-rays this AM. Hospitalist following for syncope, chronic back pain, SANDY, pre renal, on CKD stage 3, alcoholic and hep C cirrhosis status post liver transplant Discharge when medically stable per hospitalist Quality VTE Deep Vein Thrombosis/Pulmonary Embolism Present on Admission: No
--- NOTE | 2020-09-28 08:20 | CM.DPC ---
Addendum entered by Joan Forrest LPN 09/28/20 14:00: Spoke now with Nery and let her know that this dcplanner was leaving for the day and her contact would be cadd manager Samra using the [id number] line. She says the [employer] auth is still in process, she cannot be certain she will receive this today. She is aware that the pt is only able to transfer via sliding board and will have [facility] come by their facility to supervisor picking crew a drop arm w/c with leg rests in order to get pt to their facility at d/c. Dorcas cell: [phone]. Samra is updated and plans to follow closely this afternoon. Addendum entered by Joan Forrest LPN 09/28/20 11:01: Dr. Austin is updated. Addendum entered by Joan Forrest LPN 09/28/20 10:49: Just spoke with [place]/[facility]. She reports that the admission person Mary who submitted the snf request to [employer] on Sunday gave it to the [place] [employer] branch of [employer]. She apologizes for her co-workers inexperience. She is now resubmitting request appropriately and expects to have an answer today. She also confirms that she did speak with Sanjay/[facility]. He is going to bring the needed medications to [facility]. [place] states she will continue to speak directly with him and no more involvement from CM/DCP team is needed with this. (pt should take his bag of medications to the snf and he can then take them home with him once ready for d/c from the snf). Original Note: DCP: continued: case again received and EMR for last few days is reviewed. Note that plan remains [facility] at d/c and that [employer] auth is still pending. (3 day holiday weekend impacted this process). Have left for admissions/[facility] with request for a call back to discuss d/c details (specifically related the the role [facility] is playing, status of auth, transport details) Most recent COVID - test is 09/27 at 1815. Will check in with pt as details are known and follow with expectation of dc today.
--- NOTE | 2020-09-28 09:20 | P.DS_ITS ---
History of Present Illness History of Present Illness Date Patient Seen: 09/29/20 Time Patient Seen: 08:00 Chief complaint: extreme pain Hx liver Transplant Narrative: Earnest Wilks is a 54-year-old male with history alcoholic cirrhosis complicated by hep C, status post liver transplant at in 2011, CKD stage III, hypertension, GUILLE, gout, depression, GERD, and osteoporosis who presented to the emergency room with significant pain after a syncopal episode at home. Patient has had issues with orthostatic hypotension in the past, usually when he gets dizzy it improves with resting. Last evening he was in the kitchen in his RV making dinner when he got dizzy, he then cannot remember what happened but woke up in his stairwell with pain. He believes he hit his chin and head. He was unable to walk after due to LE pain on both sides. He got help from a neighbor and was able to crawl into bed and slept overnight but still could not ambulate due to pain this AM in both legs. He called EMS and was brought in for further evaluation. He has been having difficulty with his chronic pain, recently asked his provider to increase his fentanyl patch from 25 to 50 mcg as he continued to have chronic back pain and fatigue. Denies fever, chest pain, shortness of roger ath, cough, dyspnea on exertion recently. Denies palpitations. Weight has been intentionally decreasing. No decrease in oral intake recently, no medication changes, no urinary frequency or difficulties voiding. In the emergency room, patient's vital signs were unremarkable. Labs were notable for a mild leukocytosis at 11.5, stable hemoglobin from prior labs at 11.6, chronic thrombocytopenia with platelets at baseline at 139. Initial chemistries revealed a creatinine of 3.07 up from his prior admission of 1.8. Repeat obtained after 1L fluid bolus which improved to 2.84. Outpatient review reveals a probable baseline of above 2 but not entirely clear. He had an extensive imaging evaluations including noncontrast CT head which was unremarkable, CT scan of his entire spine which revealed multiple chronic compression fractures of the T and L spines, with a possible subacute component to a T9 compression fracture. C-spine did not show any compression fractures but did show a left clavicular fracture which is old. X-rays of his bilateral lower extremities revealed a left lateral malleolar fracture, and right ankle bimalleolar fractures. Orthopedics was contacted reportedly in the ER, pending formal evaluation. Admitted to medicine under observation status at this time for SANDY pending orthopedic surgery consultation. Discharge Providers Provider Date of admission: 09/20/20 11:16 Discharge Date: 09/29/20 Primary care physician: Natacha Rowley MD Consults: 09/20/20 11:11 Consult to Orthopedic Surgery Stat Comment: Consulting Provider: Monica Barros Reason for consultation: leg fractures Has provider been notified: Yes 09/20/20 13:06 Consult to Dietitian, Adult Routine Comment: Reason For Exam: weight loss Consult to Pastoral Services Routine Comment: Per patient request 09/21/20 02:37 Consult to Respiratory Therapy Evaluate & Treat Comment: Requesting CPAP for GUILLE Physician Instructions: Evaluate and treat 09/21/20 13:38 Consult to Physical Therapy Evaluate & Treat Comment: left ankle western walker Physician Instructions: Evaluate and Treat 09/22/20 21:41 Consult to Discharge Planning Routine Comment: Consult to Physical Therapy Evaluate & Treat Comment: Physician Instructions: Evaluate and Treat Consult to Respiratory Therapy Evaluate & Treat Comment: Physician Instructions: Evaluate and treat 09/23/20 10:57 Consult to Occupational Therapy Evaluate & Treat Comment: Physician Instructions: Evaluate and treat Discharge provider: Arnoldo Austin DO Summary Hospital Course Discharge Diagnosis: Please see hospital course by problem list noted below Hospital Course: Earnest Wilks is a 54-year-old male with history alcoholic cirrhosis complicated by hep C, status post liver transplant at in 2011, CKD stage III, hypertension, GUILLE, gout, depression, GERD, and osteoporosis who prese nted to the emergency room with significant pain after a syncopal episode at home and was admitted for bilateral ankle fractures, now s/o bilateral ORIF on 09/22/20. 1. Syncope - suspect orthostatic nature given history. EKG unchanged compared to previous. -telemetry normal, discontinued 2. acute left lateral malleolar fracture and right bimalleolar fractures, pathologic due to osteoporosis, present on admission. -status post bilateral ORIF on 09/22/2020 -per ortho out of bed to chair transfers toe-touch weight-bearing only bilateral lower extremities. Follow-up [facility] in 2 weeks for x-rays and short-leg walking cast bilaterally. -preop/postop pain management complicated by patient on chronic opioid therapy -now on PO therapies, IV removed. -SNF placement 3. Multiple chronic vertebral compression fractures, possible complete acute compression fractures of T9 and T10, pathologic due to osteoporosis - continue pain management as noted above. 4. SANDY, prerenal, on CKD stage III. SANDY resolved. - admission cr 3.07 improved slightly after fluids to 2.2. CK unremarkable on admission labs. Now improved to 2.02. - Last known Creatinine was 1.8. Unclear baseline as previously reported baseline per [facility] records of 2.6. 5. alcoholic and hep C cirrhosis s/p liver transplant, chronic, stable -continue rifaximin, cellcept, cyclosporine, ursodiol. 6. HTN - patient hypertensive on admission, taking metoprolol and lasix on admission. Continued metoprolol and resumed Lasix postop and blood pressures controlled with home therapy. 7. GERD, chronic, stable - continue home PPI 8. GUILLE, chronic - continue to monitor, can use home CPAP machine if available. 9. Chronic low back pain with opioid dependency -patient agrees fentanyl patch 25 mcg worked adequately for him at home for management of chronic pain, agrees that if he wants increase in fentanyl patch dosage it is best done through PCP. Additional pain relief with PO hydrocodone prescribed. 10 acute severe protein calorie malnutrition - appreciate blood collector consultation - continue nutritional supplementation. Malnutrition places patient at higher risk for complications from surgery, and likely contributed to risk of osteoporosis and fractures. 11. Anxiety, chronic, stable - patient reports that he takes seroquel at night for anxiety, continued during his admission. Dispo: discharge to SNF. Exam Vital Signs (past 8 hours): - 09/28/20 04:00 09/28/20 05:00 Temperature 98.6 F Pulse Rate 89 Respiratory Rate 16 Blood Pressure 120/76 Pulse Oximetry 99 99 Oxygen Delivery Method Room Air Oxygen Flow Rate 0 Narrative Exam Narrative: no apparent distress, appears comfortable. Bilateral splints are intact. RRR without m/r/g. lungs CTA b/l. Toes are warm and dry. Patient able to move all toes. Sensation grossly normal to light touch bilaterally. Objective Labs Result Diagrams: 09/23/20 05:44 09/26/20 04:50 Labs: Laboratory Results - last 24 hr 09/27/20 18:15 SARS-CoV-2 (PCR) Negative [facility] Medical History Cirrhosis of liver CKD (chronic kidney disease) Compression fracture Depression GERD (gastroesophageal reflux disease) Gout Hepatitis C Hypertension Liver cancer GUILLE (obstructive sleep apnea) Osteoporosis Paroxysmal atrial fibrillation Surgical History H/O right wrist surgery History of right hip replacement Liver transplant recipient Presence of left artificial elbow joint Family History Mother Renal failure Father Diabetes mellitus Congestive heart failure Social History household members: none Smoking Status: Current some day smoker alcohol intake: former Discharge Assessment & Plan Assessment and Plan Assessment: Stable, progressing as expected Plan of Treatment: Out of bed to chair transfers toe-touch weight-bearing on bilateral lower extremities. Return to [facility] in 2 weeks for x-rays and placement of short-leg walking cast bilaterally. Discharge Plan Discharge Plan Patient Disposition: SNF Transfer to: [facility] Consult as needed: Dental, Hearing, Mental health, Podiatry and Vision Provider Discharge Comment: Earnest Wilks is a 54-year-old male with history 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 1. Syncope - suspect orthostatic nature given history. EKG unchanged compared to previous. -telemetry normal, discontinued 2. acute left lateral malleolar fracture and right bimalleolar fractures, pathologic due to osteoporosis, present on admission. -status post bilateral ORIF on 09/22/2020 -per ortho out of bed to chair transfers toe-touch weight-bearing only bilateral lower extremities. Follow-up [facility] in 2 weeks for x-rays and short-leg walking cast bilaterally. -preop/postop pain management complicated by patient on chronic opioid therapy -now on PO therapies, IV removed. -PT/OT eval -SNF placement planned for tomorrow. 3. Multiple chronic vertebral compression fractures, possible complete acute compression fractures of T9 and T10, pathologic due to osteoporosis - continue pain management as noted above. 4. SANDY, prerenal, on CKD stage III. SANDY resolved. - admission cr 3.07 improved slightly after fluids to 2.2. CK unremarkable on admission labs. Now improved to 2.02. - Last known Creatinine was 1.8. Unclear baseline as previously reported baseline per [facility] records of 2.6. 5. alcoholic and hep C cirrhosis s/p liver transplant, chronic, stable -continue rifaximin, cellcept, cyclosporine, ursodiol. 6. HTN - patient hypertensive on admission, taking metoprolol and lasix on admission. Continued metoprolol and resumed Lasix postop and blood pressures controlled with home therapy. 7. GERD, chronic, stable - continue home PPI 8. GUILLE, chronic - can use home CPAP machine if available. 9. Chronic low back pain with opioid dependency -patient agrees fentanyl patch 25 mcg worked adequately for him at home for management of chronic pain, agrees that if he wants increase in fentanyl patch dosage it is best done through PCP. Additional pain relief with PO hydrocodone as prescribed. - narcan intranasal spray is as needed for opiod overdose. Can be given in any nostril. 10 acute severe protein calorie malnutrition 11. Anxiety - patient has been on long-standing seroquel for reported anxiety. Dispo: discharge to SNF. Discharge orders & Medications Prescriptions: New aspirin 81 mg Tablet,Delayed Release (Dr/Ec) 81 mg PO BID 21 Days Qty: 42 RF: 0 hydromorphone 4 mg tablet 4 mg PO Q6H PRN (Reason: pain) Qty: 30 RF: 0 metoprolol succinate 25 mg Tablet Extended Release 24 Hr 25 mg PO DAILY 30 Days Qty: 60 RF: 0 Continued furosemide 20 mg tablet 20 mg PO DAILY RF: 0 quetiapine [Seroquel] 25 mg Tablet 25 mg PO BEDTIME RF: 0 cyclosporine modified 25 mg Capsule 25 mg PO BID RF: 0 ondansetron HCl [Zofran] 4 mg Tablet 4 mg PO Q8H PRN (Reason: Nausea) RF: 0 allopurinol 100 mg Tablet 100 mg PO DAILY RF: 0 mycophenolate mofetil [CellCept] 500 mg Tablet 500 mg PO BID RF: 0 lidocaine [Lidoderm] 5 % Adhesive Patch,Medicated 1 patch TOPICAL DAILY RF: 0 ursodiol 300 mg Capsule 300 mg PO BID RF: 0 gabapentin 300 mg Capsule 300 mg PO BID RF: 0 Kellie-Ramila 0.8 mg Tablet 1 tab PO DAILY RF: 0 pyridoxine (vitamin B6) 100 mg Tablet 100 mg PO DAILY RF: 0 fentanyl [Duragesic] 25 mcg/hr Patch 72 Hour See Rx Instructions .ROUTE .COMPLEX RF: 0 hydroxyzine pamoate [Vistaril] 25 mg Capsule 25 mg PO BEDTIME PRN (Reason: Itching) RF: 0 duloxetine [Cymbalta] 20 mg Capsule,Delayed Release(Dr/Ec) 20 mg PO DAILY RF: 0 ondansetron 4 mg tablet,disintegrating 4 mg PO TID-QID PRN (Reason: nausea and vomiting) Qty: 10 RF: 0 pantoprazole [Protonix] 40 mg tablet,delayed release (DR/EC) 40 mg PO DAILY Qty: 30 RF: 0 Xifaxan 550 mg Tablet 550 mg PO BID RF: 0 Changed cyclobenzaprine 10 mg Tablet 10 mg PO Q8H PRN (Reason: Spasms) Qty: 0 RF: 0 docusate sodium 250 mg Capsule 250 mg PO DAILY Qty: 0 RF: 0 acetaminophen [Tylenol] 325 mg Capsule 650 mg PO Q4-6H PRN (Reason: Pain, Moderate) Qty: 0 RF: 0 Narcan 4 mg/actuation [place],Non-Aerosol 1 spray INTRANASAL PER PKG DIR 30 Days Qty: 1 RF: 0 Discontinued metoprolol succinate 25 mg Capsule,Sprinkle,Er 24hr 25 mg PO DAILY RF: 0 Follow up/Referrals: Gayla Wheatley [Other] Monica Barros MD [Physician] - 10/07/20 11:00 am (appt:10/07 @ 11:10 check in at 11:[address] barros @ [address] [place] [address] Repeat x-rays ) Discharge Health Status Multidrug resistant organism: No MDRO Precautions: [place] Diet/Activity/Treatments Diet: Regular Liquid consistency: Normal/Thin Food texture: Regular [facility] Reason for rehabilitation: Post-operative therapy Rehab type: Physical therapy and Occupational therapy Restrictions to mobility: Out of bed to chair transfers toe-touch weight-bearing bilateral lower extremities. Visit Report/Discharge Packet Instructions: DI for Open Reduction Internal Fixation Surgery, DI for Prescription Opioid Use Stand Alone Forms: Surgery Discharge Discharge Data Primary Care Provider: Natacha Rowley VTE Deep Vein Thrombosis/Pulmonary Embolism Present on Admission: No
[2020-09-28] MEDS: allopurinoL 100 MG TABLET PO (09:51)
[2020-09-28] MEDS: PANTOPRAZOLE 40 MG TABLET PO (09:51)
[2020-09-28] MEDS: GABAPENTIN 300 MG CAPSULE PO ×2 (09:51→21:05)
[2020-09-28] MEDS: FUROSEMIDE 20 MG TABLET PO (09:51)
[2020-09-28] MEDS: RIFAXIMIN 550 MG TABLET PO ×2 (09:51→21:06)
[2020-09-28] MEDS: PYRIDOXINE (VITAMIN B6) 50 MG TABLET 100 MG PO (09:52)
[2020-09-28] MEDS: ASPIRIN EC 81 MG TABLET PO ×2 (09:52→21:06)
[2020-09-28] MEDS: DULOXETINE 20 MG CAPSULE PO (09:52)
[2020-09-28] MEDS: ursodioL 300 MG CAPSULE PO ×2 (09:52→21:05)
[2020-09-28] MEDS: MYCOPHENOLATE MOFETIL 500 MG TABLET PO ×2 (09:52→21:05)
[2020-09-28] MEDS: METOPROLOL ER 25 MG TABLET PO (09:53)
[2020-09-28] MEDS: DOCUSATE 100 MG CAPSULE PO ×2 (09:59→21:05)
--- NOTE | 2020-09-28 11:45 | OT.IPNOTE ---
Pt not wanting to do therapy at this time and just wanting to eat. Able to review safety awareness of bed mobility and TDWB for bilateral feet. NO charge.
--- NOTE | 2020-09-28 14:49 | PC.NURSE ---
1300- Pt pressed his call button to inform us that he felt he had a seizure. He reports experiencing twitching and his eyes rolling to the back of his head, that caused him to wake up. He states it lasted 5 seconds. VSS, A&Ox4, HOB elevated to above > 45 degrees. Attempted to reach MD, at that time he was in a different room. Pt called again at 1320 stating he experienced a second episode, but while awake this time, VSS, HOB remained above 45 degrees. Pt reports having a hx of seizures when he was around 5 yo, and was taking medications for the seizures, but stopped around age 15. MD contacted and made aware. Pt reported a third episode at 1400 while awake, VSS, HOB remained elevated. Pt denies having any other symptoms. MD made aware of these occurrences.
--- NOTE | 2020-09-28 15:14 | PT.IPTN ---
Current Diagnoses Displaced bimalleolar fracture of right lower leg, initial encounter for closed fracture (09/20/20) Surgery Performed Operation Date: 09/22/20 17:15 Actual Procedures p ORIF Ankle Fracture(Bilateral) - Monica Barros MD Physical Therapy Treatment Note M2 PT-IP Current Condition Start: 09/23/20 08:29 Freq: NEEDED Status: Active Protocol: Document 09/23/20 11:10 AW (Rec: 09/23/20 12:05 AW [id number]) Physical Therapy Current Condition Current Condition Evaluation Date 09/23/20 Treatment Diagnosis bilateral ankle fx s/p ORIF; T /S and L/S compression fx; difficulty walking Onset Date 09/20/20 Precautions Lumbar Precautions Log Roll,No Twisting,Limit Bending,Lifting Restriction of 10 lbs Other Precautions syncope; falls Weight Bearing Status Weight Bearing Status Touch Down Weight Bearing Allowed Weight Bearing Amount (enter % TDWB BLE or #) (%) M3 PT-IP Subjective Start: 09/23/20 08:29 Freq: NEEDED Status: Active Protocol: Document 09/28/20 14:42 SP (Rec: 09/28/20 16:04 SP [id number]) Subjective Physical Therapy Visit Type Type Treatment Note Visit Start Time 14:42 Visit Stop Time 15:14 Total Visit Minutes 32 Notes DIXON Lawson attended tx and provided support education cuing and SBA for safety during transfers and w/c mob obstacle mgt. Number of INVENTORY CONTROL SUPERVISOR Visits 1 Physical Therapy Visit Comments Patient Comments Pt stated willing to work with therapy but recently reported spoke with nursing and felt was having some seizure like movements around 1300 that hasn't experiences since was younger. Patient Goals Restore independent ambulation . Pt is aware of need for and is agreeable to SNF rehab Therapy Pain Assessment Pain When Pain Assessed During Mobility Pain Present Pain Present Pain Reported Location R anterior tibia Intensity 4 Scale Used 4/10 with movement RLE, 0/10 at rest Description Sharp,With Movement Pain Behaviors Calling Out,Facial Grimacing Pain Management Techniques Re-positioning,Timing of Activity with Medications M4 PT-IP Mobility and Gait Start: 09/23/20 08:29 Freq: NEEDED Status: Active Protocol: Document 09/28/20 14:42 SP (Rec: 09/28/20 16:04 SP [id number]) PT-Bed Mobility Assessment Rolling Type of Rolling Log Rolling,Roll to Left Level of Assist Standby Assistance Supine to Sit Supine to Sit Standby Assistance,Head of Bed Elevated Sit to Supine Sit to Supine Standby Assistance Scooting Scooting to Edge of Bed Standby Assistance Scooting Up and Down in Bed Standby Assistance PT-Transfer Assessment Equipment Transfer Assistive Device Gait Belt,Sliding Board Orthotic/Prosthetic Devices or Brace: No Transfers Transfer Destination Bed,Wheelchair Transfer Technique Lateral Scoot Transfer Ability Level of Assist Contact Guard Assistance,Use of Upper Extremities Comments Mobility Comments INVENTORY CONTROL SUPERVISOR/SPTA spoke with Nurse and Hospitalist for safety guidence and ok to mobilize pt with reports of seizure-like movement experienced earlier with verbal clearance ok to pariticipate with PT today. Pt inclined in bed approx 60 deg as INVENTORY CONTROL SUPERVISOR/ SPTA arrived. Pt participated in BLE supine exercises, brief call out reporting pain anterior R tibia x2 during R heel slide and worse with light touch palpation, intact/ normal color. Completed log roll to his left and SL to sit SBA. He sat EOB and completed sitting exercises without complaint of increased pain. He then completed slide board transfer bed>to w/c set up on his right side CGA. He appropriately set the w/c brakes and positioned the slide board. He requires cues for increased lift with BUE to minimize BLE weightbearing. Pt is not consistant with TTWB status. Pt requires cuing for slow pacing and obstacle mgt w/c self propel magt in room and nursing stands at times in hallway approx 150 ft, took one short rest break. On return to the room, pt completed slide board transfer back to bed CGA. Bed alarm on for safety. Gait Assessment Comments Gait Comments Pt unable due to TDWB BLE. PT-Balance Assessment Sitting Balance and Reactions Static Sitting Balance Ability Normal Dynamic Sitting Balance Ability Normal M5 PT-IP Objective Assessments Start: 09/23/20 08:29 Freq: NEEDED Status: Active Protocol: Document 09/23/20 11:10 AW (Rec: 09/23/20 12:05 AW [id number]) Orientation Orientation/Cognition Level of Alertness Alert Orientation Name,Day of Week,Place, Situation Language Function Ability No Deficits Noted Safety Awareness Decreased Safety Awareness Memory Description No Deficits Noted Gross Range of Motion Upper Extremity ROM Assessment Within Functional Limits Lower Extremity ROM Assessment Bilaterally Impaired Impairments B ankles in Koo splints Strength Upper Extremity Strength Assessment Within Functional Limits Lower Extremity Strength Assessment Bilaterally Impaired Hip 4/5 Knee 4/5 Sensation Assessment Sensation Gross Sensation WNL Comments Sensation Comments Pt denies numbness in distal BLE Muscle Tone Muscle Tone WNL Yes Other Assessments Other Other Assessments BP stable 120's/high 60's throughout evaluation with no complaint of dizziness. M6 PT-IP Treatment Start: 09/23/20 08:29 Freq: NEEDED Status: Active Protocol: Document 09/28/20 14:42 SP (Rec: 09/28/20 16:04 SP [id number]) Physical Therapy Treatment Education Education Provided Precautions,Weight Bearing Status,Safety Other Treatments Other Treatment Performed Pt completed BLE quad sets, heel slides, straight leg lifts, supine hip abduction; seated LAQ with manual resistance, resisted knee flexion, resisted hip adduction and abduction. ZULEIKA Olvera clarified that pt would likely be TDWB for 6 weeks post surgery. INVENTORY CONTROL SUPERVISOR reinforced education on WB status with pt verbal confirmation understanding. M7 PT-IP Assessment and Plan Start: 09/23/20 08:29 Freq: NEEDED Status: Active Protocol: Document 09/28/20 14:42 SP (Rec: 09/28/20 16:04 SP [id number]) PT Summary Assessment and Plan Potential Rehabilitation Potential Good Status of Condition at Evaluation Stable Summary Impairments Pain,ROM,Strength,Balance,Bed Mobility,Transfers,Gait Progress Towards Goals Slow Progress due to Pain,Slow Progress due to Activity Tolerance Assessment Summary Pt tolerated supine and seated ther ex today. He continues to require cues to lift more with BUE during transfers to minimize BLE weightbearing. Pt requires SNF rehab to improve strength, endurance, and functional mobility prior to return to independent living. Goals Bed Mobility Goal Standby Assistance Transfer Goal Standby Assistance,Slide Board Frequency of Treatment Frequency Of Treatment Once a Day Treatment Plan Physical Therapy Treatment Plan Bed Mobility Training,Transfer Training,Therapeutic Exercise ,Balance Retraining,Post Op Education,Discharge Planning, Hot or Cold Pack,Neuromuscular Re-ed Other Recommendations and Next Treatment slide board transfer to w/c Focus while maintain TTWB BLE precautions (provided therapist foot under BLE for feedback), w/c mobility including obstacle mgt, commode Recommendations To Nursing Amount of Assist Needed 1 Person Assist Discharge Recommendations PT Discharge Recommendations SNF Rehab Equipment Needed for Home Before defer to rehab setting Discharge Transportation Needs at Discharge Wheelchair/Cabulance
--- NOTE | 2020-09-28 15:29 | CM.DPNOTE ---
RightFaxed recent clinicals to [facility] and fax confirmation received. Penny Copeland CM Asst.
--- NOTE | 2020-09-28 15:34 | CM.DPC ---
Assumed patient from [facility]. awaiting call from [facility]ery URIAS to let us know if [facility] authorized stay. Called [facility] at 3pm and left . I called [facility] to see if they would be able to take patient Wed. if they could get an auth. Clinicals faxed. Spoke to GISSELL Ogden at [facility] who called because she had received auth requests from both [facility] and [facility]. I explained that [facility] has had us in [facility] since 09/22, so I was proceeding forward with [facility]. Mevli said that she recieved their request for an auth last night but had approved it first thing this morning. Melvi gave me her phone [phone] in case there was an issue but will follow up in the morning.
--- NOTE | 2020-09-28 15:51 | PC.NURSE ---
Shift note: Patient is AxOx3, can make needs known. Hx of falls, uses slider board to transition from w/c to bed and back. C/o twitching that he reported to dayshift RN as a seizure but made no mention of seizure to this RN. Can make needs known, high fall risk, uses call light appropriately.
--- NOTE | 2020-09-28 16:59 | P.PN_ITS ---
Subjective Subjective Date Patient Seen: 09/28/20 Time Patient Seen: 16:59 Interval history: Patient is a 54-year-old male with history alcoholic cirrhosis complicated by hep C, status post liver transplant at in 2011, CKD stage III, hypertension, GUILLE, gout, depression, GERD, and osteoporosis who presented to the emergency room with significant pain after a syncopal episode at home. Admitted with bilateral malleolar ankle fractures. In addition thoracic MRI review by orthopedic surgery shows some bony edema at T9 and T10 consistent with completed acute compression fractures. Patient is postop day 6. Bilateral ankle ORIF. States pain is improving today, now feels that he is on a good routine. Does complain of shaking activity when he is about to fall asleep. Mentions prior history of seizures as a child but has not had any as an adult. Denies LOC or missing time. No seizure activity witnessed by staff. Now pending placement at SNF, accepted to a facility but was pending insurance auth, planned discharge tomorrow. Exam Vital Signs (past 8 hours): - 09/28/20 09:00 09/28/20 09:53 09/28/20 09:58 Temperature 97.8 F Pulse Rate 93 H 93 H Respiratory Rate 19 Blood Pressure 115/73 115/73 Pulse Oximetry 97 97 09/28/20 13:05 09/28/20 13:20 09/28/20 13:27 Temperature 98.7 F Pulse Rate 88 87 86 Respiratory Rate 16 16 19 Blood Pressure 130/75 143/66 H 143/66 H Pulse Oximetry 98 100 100 09/28/20 14:00 09/28/20 15:46 09/28/20 16:01 Temperature 98.3 F Pulse Rate 84 Respiratory Rate 20 Blood Pressure 123/70 132/83 Pulse Oximetry 99 100 99 Oxygen Delivery Method Room Air Oxygen Flow Rate 0 Narrative Exam Narrative: no apparent distress, appears comfortable. Bilateral splints are intact. RRR without m/r/g. lungs CTA b/l. Toes are warm and dry. Patient able to move all toes. Sensation grossly normal to light touch bilaterally. Objective Labs Result Diagrams: 09/23/20 05:44 09/26/20 04:50 Labs: Laboratory Results - last 24 hr 09/27/20 18:15 SARS-CoV-2 (PCR) Negative [facility] Medical History Cirrhosis of liver CKD (chronic kidney disease) Compression fracture Depression GERD (gastroesophageal reflux disease) Gout Hepatitis C Hypertension Liver cancer GUILLE (obstructive sleep apnea) Osteoporosis Paroxysmal atrial fibrillation Surgical History H/O right wrist surgery History of right hip replacement Liver transplant recipient Presence of left artificial elbow joint Family History Mother Renal failure Father Diabetes mellitus Congestive heart failure Social History household members: none Smoking Status: Current some day smoker alcohol intake: former Assessment & Plan Assessment & Plan narrative: Earnest Wilks is a 54-year-old male with history 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 1. Syncope - suspect orthostatic nature given history. EKG unchanged compared to previous. -telemetry normal, discontinued 2. acute left lateral malleolar fracture and right bimalleolar fractures, pathologic due to osteoporosis, present on admission. -status post bilateral ORIF on 09/22/2020 -per ortho out of bed to chair transfers toe-touch weight-bearing only bilateral lower extremities. Follow-up [facility] in 2 weeks for x-rays and short-leg walking cast bilaterally. -preop/postop pain management complicated by patient on chronic opioid therapy -now on PO therapies, IV removed. -PT/OT eval -SNF placement planned for tomorrow after lengthy issue with insurance authorization. 3. Multiple chronic vertebral compression fractures, possible complete acute compression fractures of T9 and T10, pathologic due to osteoporosis - continue pain management as noted above. 4. SANDY, prerenal, on CKD stage III. SANDY resolved. - admission cr 3.07 improved slightly after fluids to 2.2. CK unremarkable on admission labs. Now improved to 2.02. - Last known Creatinine was 1.8. Unclear baseline as previously reported baseline per [facility] records of 2.6. 5. alcoholic and hep C cirrhosis s/p liver transplant, chronic, stable -continue rifaximin, cellcept, cyclosporine, ursodiol. 6. HTN - patient hypertensive on admission, taking metoprolol and lasix on admission. Continued metoprolol and resume Lasix postop 7. GERD, chronic, stable - continue home PPI 8. GUILLE, chronic - continue to monitor, can use home CPAP machine if available. 9. Chronic low back pain with opioid dependency -patient agrees fentanyl patch 25 mcg worked adequately for him at home for management of chronic pain, agrees that if he wants increase in fentanyl patch dosage it is best done through PCP. Additional pain relief with PO hydrocodone and currently has breakthough medications with IV. 10 acute severe protein calorie malnutrition - appreciate bottom turner consultation - continue nutritional supplementation. Malnutrition places patient at higher risk for complications from surgery, and likely contributed to risk of osteoporosis and fractures. Dispo: pending SNF, accepted to facility plan for discharge tomorrow. Repeat COVID 19 testing negative. Quality VTE Deep Vein Thrombosis/Pulmonary Embolism Present on Admission: No
[2020-09-28] MEDS: QUETIAPINE 25 MG TABLET PO (21:05)
[2020-09-28] MEDS: SENNOSIDES 8.6 MG TABLET 17.2 MG PO (21:05)
[2020-09-29] MEDS: HYDROMORPHONE 4 MG TABLET PO ×4 (00:03→11:39)
[2020-09-29 00:05] VITALS: O2SAT 100
[2020-09-29 03:12] VITALS: BP 119/57; PULSE 75; RESP 16; TEMP 37.4; O2SAT 95
[2020-09-29 04:00] VITALS: O2SAT 95
--- NOTE | 2020-09-29 07:02 | PC.NURSE ---
0658 Checked pt. to assess his pain level, but he's sound asleep & snoring. Will monitor & report to day RN.
--- NOTE | 2020-09-29 07:51 | PM.PNPO.1 ---
Subjective Subjective Date Patient Seen: 09/29/20 Time Patient Seen: 07:51 Interval history: Postop day 7 status post open reduction internal fixation bilateral ankle bimalleolar fractures with lateral plates bilaterally with Dr. Barros. Patient complains of some pain. He states therapy is going well. Per nursing potentially being DC to [facility] for continued care. Exam Vital Signs (past 8 hours): - 09/29/20 00:05 09/29/20 03:12 09/29/20 04:00 Temperature 99.4 F Pulse Rate 75 Respiratory Rate 16 Blood Pressure 119/57 L Pulse Oximetry 100 95 95 Oxygen Delivery Method Room Air Oxygen Flow Rate 0 Narrative Exam Narrative: Patient lying in bed in NAD. He is alert and oriented X3. Splints are well fitting. He is able to wiggle his toes. Brisk capillary refill in both feet. SILT throughout BLEs. Objective Labs Result Diagrams: 09/23/20 05:44 09/26/20 04:50 [facility] Medical History Cirrhosis of liver CKD (chronic kidney disease) Compression fracture Depression GERD (gastroesophageal reflux disease) Gout Hepatitis C Hypertension Liver cancer GUILLE (obstructive sleep apnea) Osteoporosis Paroxysmal atrial fibrillation Surgical History H/O right wrist surgery History of right hip replacement Liver transplant recipient Presence of left artificial elbow joint Family History Mother Renal failure Father Diabetes mellitus Congestive heart failure Social History household members: none Smoking Status: Current some day smoker alcohol intake: former Assessment & Plan Post-op Postoperative Procedures: Procedures Operation Date: 09/22/20 17:15 Actual Procedures Side Surgeon p ORIF Ankle Fracture Bilateral Monica Barros MD Postop day 7 status post open reduction internal fixation bilateral ankle bimalleolar fractures with lateral plates bilaterally. Out of bed to chair transfers toe-touch weight-bearing bilateral lower extremities. Return to clinic 2 weeks PO for x-rays and placement of short-leg walking cast bilaterally. Continue ASA 81 mg BID for VTE prophylaxis. Hospitalist following for syncope, chronic back pain, SANDY, pre renal, on CKD stage 3, alcoholic and hep C cirrhosis status post liver transplant Discharge when medically stable per hospitalist Quality VTE Deep Vein Thrombosis/Pulmonary Embolism Present on Admission: No
[2020-09-29 08:05] VITALS: O2SAT 97
[2020-09-29 08:27] VITALS: BP 120/62; PULSE 72; RESP 17; TEMP 36.7; O2SAT 97
--- NOTE | 2020-09-29 08:29 | CM.DPNOTE ---
RightFaxed DC Summary to [facility] per [facility], and received fax confirmation. Penny Copeland CM Asst.
[2020-09-29] MEDS: ursodioL 300 MG CAPSULE PO (09:15)
[2020-09-29] MEDS: NEPHRO-VITE RX TABLET 1 TAB PO (09:15)
[2020-09-29] MEDS: PYRIDOXINE (VITAMIN B6) 50 MG TABLET 100 MG PO (09:15)
[2020-09-29 09:16] VITALS: BP 143/89; PULSE 81
[2020-09-29] MEDS: ASPIRIN EC 81 MG TABLET PO (09:16)
[2020-09-29] MEDS: PANTOPRAZOLE 40 MG TABLET PO (09:16)
[2020-09-29] MEDS: GABAPENTIN 300 MG CAPSULE PO (09:16)
[2020-09-29] MEDS: MYCOPHENOLATE MOFETIL 500 MG TABLET PO (09:16)
[2020-09-29] MEDS: METOPROLOL ER 25 MG TABLET PO (09:16)
[2020-09-29] MEDS: CYCLOSPORINE, MODIFIED 25 MG CAPSULE PO (09:16)
[2020-09-29] MEDS: allopurinoL 100 MG TABLET PO (09:16)
[2020-09-29] MEDS: DOCUSATE 100 MG CAPSULE PO (09:16)
[2020-09-29] MEDS: FUROSEMIDE 20 MG TABLET PO (09:16)
[2020-09-29] MEDS: RIFAXIMIN 550 MG TABLET PO (09:16)
[2020-09-29] MEDS: DULOXETINE 20 MG CAPSULE PO (09:16)
[2020-09-29] MEDS: CYCLOBENZAPRINE 10 MG TABLET PO (10:17)
--- NOTE | 2020-09-29 10:28 | CM.DPC ---
DCP Cont: Spoke to Lacy at [facility] early this morning. At that time, she indicated that she did not have authorization from [facility] as of yet, since original authorization was through [facility]. Asked her to call Maria R at [facility] and confirm, and this DC planner/scheduler also left a message with case management social worker, Maria R, at [facility], indicating that patient is going to [facility], instead of [facility]. Updated patient and explained that new plan is [facility], gave him the choice list, for [facility] acceptance was not confirmed or consistent. Stated, he really didn't want to go that far, but if that's what he needs before he goes home, so be it. Lacy at [facility] confirmed that she did get authorization. Faxed updated DC summary showing reason for Seroquel, COVID results, med sheets, and PASSR. Faxed over Medicaid form, and received a call back from Jojo at [employer], who works with Medicaid. Confirmed that they will mixing picker tender patient at noon. Updated patient, and nurse, Bianca. Updated Lacy at [facility] as well. Nery at [facility] was going to accept patient today, but told her that patient was going to go to another facility, therefor, she would withdraw her authorization. P: Patient is being discharged to [facility] today, via wheel-chair. Lara Finley RN/Clinical Research Scientist
--- NOTE | 2020-09-29 12:04 | PC.NURSE ---
Pt dressed in gown and personal boxer briefs, with assistance, all belongings packed into personal bags and hospital pt belonging bags. Packed his electronic devices (ipad and laptop and chargers) into pt's clothing bag as requested by pt. Cell phone placed in pt's jacket pocket, jacket worn by pt. Discharge packet given to transport designee, handwritten prescriptions included- fetanyl patch and PO dilaudid. Pt transferred by sliderboard to w/c with 1PA. Pt left via w/c by transport designee, all belongings placed on another w/c and brought to transport bus. Pt aware of f/u appt with Dr. Barros at [facility] on 10/07. Report given to Glenny at [facility] in [place]. Informed her of handwritten prescriptions in packet. All her questions were answered. Informed her that pt left unit at 1150.
--- NOTE | 2020-09-29 13:44 | CM.DPNOTE ---
Late entry. Faxed updated med list to [facility] and received fax confirmation. Penny Copeland CM Asst.
== END 2020-09-29 12:14 | DRG 309 ==
LOC: ED 11:10 → AC 12:32
PROVIDERS: Internal Medicine; Nurse Practitioner Family; Orthopaedic Surgery; Admitting Provider Internal Medicine; Emergency Provider Emergency Medicine; Family Provider Internal Medicine; PCP Internal Medicine; Referring Provider Emergency Medicine; Visit Provider Internal Medicine
PROC: 0QSC04Z Reposition Left Lower Femur with Internal Fixation Device, Open Approach (ICD-10-PCS; principal; 2020-09-22 17:15)
DX: M80.072A Age-related osteoporosis with current pathological fracture, left ankle and foot, initial encounter for fracture (principal); E43 Unspecified severe protein-calorie malnutrition; M80.071A Age-related osteoporosis with current pathological fracture, right ankle and foot, initial encounter for fracture; M80.08XA Age-related osteoporosis with current pathological fracture, vertebra(e), initial encounter for fracture; R55 Syncope and collapse; Z94.4 Liver transplant status; N17.9 Acute kidney failure, unspecified; I12.9 Hypertensive chronic kidney disease with stage 1 through stage 4 chronic kidney disease, or unspecified chronic kidney disease; N18.30 Chronic kidney disease, stage 3 unspecified; M10.9 Gout, unspecified; F32.9 Major depressive disorder, single episode, unspecified; G47.33 Obstructive sleep apnea (adult) (pediatric); F11.20 Opioid dependence, uncomplicated; Z68.31 Body mass index [BMI] 31.0-31.9, adult; F17.210 Nicotine dependence, cigarettes, uncomplicated; F41.9 Anxiety disorder, unspecified; Z20.822 Contact with and (suspected) exposure to COVID-19; W10.9XXA Fall (on) (from) unspecified stairs and steps, initial encounter
CPT/HCPCS: 36415; 64450; 70450; 72125; 72128; 72131; 72146; 72148; 73590; 73610; 80048; 80053; 81003; 82550; 82962; 83690; 85025; 85027; 85610; 87635; 93005; 93010; 94660; 94760; 96361; 96374; 96376; 97110; 97162; 97166; 97530; 97535; 97542; 99283; 99285; C9803; J0690; J1100; J1170; J2250; J2405; J2704; J3010; J3360; J7515

== ENCOUNTER → 2020-11-02 08:23 | Outpatient (CLI) | payer OTHER, MEDICAID, SELFPAY ==
[2020-09-20 12:56] VITALS: BMI 27.9
[2020-11-02] MEDS: COVID-19 VACC #1, MRNA(MOD) 100 MCG/0.5 ML VIAL IM (08:30)
== END ==
PROVIDERS: Family Provider Internal Medicine; PCP Internal Medicine; Visit Provider Internal Medicine
DX: Z23 Encounter for immunization (principal)
CPT/HCPCS: 0011A; 91301

== ENCOUNTER → 2020-12-01 08:18 | Outpatient (CLI) | payer OTHER, MEDICAID, SELFPAY ==
[2020-09-20 12:56] VITALS: BMI 27.9
[2020-12-01] MEDS: COVID-19 VACC #2, MRNA(MOD) 100 MCG/0.5 ML VIAL IM (08:33)
== END ==
PROVIDERS: Family Provider Internal Medicine; PCP Internal Medicine; Visit Provider Internal Medicine
DX: Z23 Encounter for immunization (principal)
CPT/HCPCS: 0012A; 91301

== ENCOUNTER → 2020-12-09 11:50 | Outpatient (CLI) | payer OTHER, MEDICAID, SELFPAY ==
[2020-09-20 12:56] VITALS: BMI 27.9
[2020-12-09 13:13] LABS: Add Manual Diff / Slide Review NO; Basophils Absolute Auto 0 /uL (0-100); Basophils Percent Auto 0.1 % (0-2); Eosinophils Absolute Auto 0 /uL (0-450); Hematocrit 32.8 % (41-53); Hemoglobin 10.6 g/dL (13.5-17.5); Lymphocytes Absolute Auto 3900 /uL (1100-4500); Lymphocytes Percent Auto 31.2 % (25-40); Mean Corpuscular HGB Conc 32.4 % (30-36); Mean Corpuscular Hemoglobin 30.9 PG (26-34); Mean Corpuscular Volume 95.5 fL (80-100); Monocytes Absolute Auto 600 /uL (0-900); Neutrophils Absolute Auto 7900 /uL (1500-7000); Neutrophils Percent Auto 63.7 % (50-75); Platelet Count 203 X10^3/uL (150-400); Red Blood Cell Count 3.43 X10^6/uL (4.5-5.9); Red Cell Distribution Width 16.4 % (11.6-14.8); White Blood Cell Count 12.4 X10^3/uL (4.5-11.0)
[2020-12-09 13:22] LABS: INR 0.9 (0.9-1.3); Prothrombin Time 10.7 SECONDS (10.1-12.7)
[2020-12-09 13:35] LABS: Alanine Aminotransferase 18 IU/L (<50); Albumin 2.8 g/dL (3.5-5.0); Albumin Globulin Ratio 0.8 (1.0-2.8); Alkaline Phosphatase 272 U/L (38-126); Aspartate Aminotransferase 42 IU/L (17-59); BUN Creatinine Ratio 20.9 (6-22); Bilirubin Total 0.5 mg/dL (0.2-1.3); Bilirubin Unconjugated 0.3 mg/dL (0.0-1.1); Blood Urea Nitrogen 46 mg/dL (9-20); Calcium 8.7 mg/dL (8.4-10.2); Carbon Dioxide 21 mmol/L (22-32); Chloride 108 mmol/L (98-107); Globulin 3.5 g/dL (1.7-4.1); Glucose 117 mg/dL (70-100); HEMOLYSIS < 15 (0-50); Phosphorous 2.5 mg/dL (2.5-4.5); Potassium 4.3 mmol/L (3.4-5.1); Sodium 135 mmol/L (137-145); Total Protein 6.3 g/dL (6.3-8.2)
[2020-12-09 13:37] LABS: Gamma Glutamyl Transpeptidase 65 U/L (15-73)
[2020-12-13 20:11] LABS: Cyclosporine, Blood 83 ng/mL (100-400)
== END ==
PROVIDERS: Family Provider Internal Medicine; PCP Internal Medicine; Referring Provider Internal Medicine Gastroenterology; Visit Provider Internal Medicine Gastroenterology
DX: Z94.4 Liver transplant status (principal); Z48.298 Encounter for aftercare following other organ transplant; Z79.899 Other long term (current) drug therapy
CPT/HCPCS: 36415; 80048; 80076; 80158; 82977; 83735; 84100; 85025; 85610

== ENCOUNTER → 2021-01-13 13:01 | Outpatient (CLI) | payer OTHER, MEDICAID, SELFPAY ==
[2020-09-20 12:56] VITALS: BMI 27.9
[2021-01-13 14:14] LABS: Add Manual Diff / Slide Review NO; Basophils Absolute Auto 0 /uL (0-100); Basophils Percent Auto 0.1 % (0-2); Eosinophils Absolute Auto 0 /uL (0-450); Hematocrit 37.3 % (41-53); Hemoglobin 12.1 g/dL (13.5-17.5); Lymphocytes Absolute Auto 1900 /uL (1100-4500); Lymphocytes Percent Auto 17.2 % (25-40); Mean Corpuscular HGB Conc 32.4 % (30-36); Mean Corpuscular Hemoglobin 31.9 PG (26-34); Mean Corpuscular Volume 98.6 fL (80-100); Monocytes Absolute Auto 500 /uL (0-900); Monocytes Percent Auto 4.2 % (3-14); Neutrophils Absolute Auto 8600 /uL (1500-7000); Neutrophils Percent Auto 78.5 % (50-75); Platelet Count 128 X10^3/uL (150-400); Red Blood Cell Count 3.78 X10^6/uL (4.5-5.9); Red Cell Distribution Width 19.1 % (11.6-14.8)
[2021-01-13 14:38] LABS: Erythrocyte Sedimentation Rate 19 MM/HR (0-15)
[2021-01-13 15:23] LABS: C-Reactive Protein Quant 1.4 mg/dL (<1.0); Uric Acid 7.9 mg/dL (3.5-8.5)
== END ==
PROVIDERS: Family Provider Internal Medicine; PCP Internal Medicine; Referring Provider Orthopaedic Surgery; Visit Provider Orthopaedic Surgery
DX: Z01.812 Encounter for preprocedural laboratory examination (principal); E79.0 Hyperuricemia without signs of inflammatory arthritis and tophaceous disease
CPT/HCPCS: 36415; 84550; 85025; 85651; 86140

== ENCOUNTER → 2021-01-24 14:20 | Outpatient (CLI) | payer OTHER, MEDICAID, SELFPAY ==
[2020-09-20 12:56] VITALS: BMI 27.9
[2021-01-24 16:44] LABS: COVID19 -Nasal RAPID Negative (Negative)
== END ==
PROVIDERS: Family Provider Internal Medicine; PCP Internal Medicine; Visit Provider Physician Assistant
DX: Z01.812 Encounter for preprocedural laboratory examination (principal); Z20.828 Contact with and (suspected) exposure to other viral communicable diseases
CPT/HCPCS: 87635

== ENCOUNTER 2021-01-25 10:55 | Day surgery (SDC) | payer OTHER, MEDICAID, SELFPAY ==
[2020-09-20 12:56] VITALS: BMI 27.9
[2021-01-20 09:38] VITALS: BMI 30.9
[2021-01-25] VITALS (13 sets, daily range): BP systolic 133–171; BP diastolic 77–99; PULSE 65–90; RESP 10–18; TEMP 35.9–36.8; O2SAT 95–98; BMI 30.9
[2021-01-25] MEDS: LACTATED RINGERS 1,000 ML 42 ML IV (11:49)
--- NOTE | 2021-01-25 14:21 | P.OP_ITS ---
Operative Date/Time/Diagnoses Date of procedure: 01/25/21 Time of procedure: 14:41 Pre-op diagnosis: Left ankle status post open reduction internal fixation with lateral ankle wound Post-op diagnosis: same Procedure & Clinicians Procedure: Removal internal fixation left ankle Same procedure as scheduled: Yes Indications: Is a 55-year-old who had bilateral ankle fractures. He has got a complicated past medical history with a history of liver transplant. He is doing reasonably well but he has noted a small wound and slight drainage persi stently on his left ankle. Brought the operating room for removal retained internal fixation. Surgeon: Monica Barros Click Yes if Unassisted: Yes Anesthesia Type: General and Peripheral nerve block Operative Notes Findings: Small lateral ankle wound, ankle hardware removed without difficulty. Slight coating around the plate which was sent for culture and sensitivity. All screws room removed without difficulty. Fracture appeared healed all screw h oles were carefully curetted. Closure Type: primary Specimen(s): other (Cultures from deep tissue) Estimated Blood Loss (mL): 50 Tourniquet time (min): 26 Procedure in detail: Patient is brought to the operating room. He underwent the induction of a general anesthesia. A preoperative pain block was placed. The patient's left lower extremities prepped draped standard sterile fashion. Ankle was elevated and was exsanguinated. High-thigh tourniquet was applied to 250 mmHg and elevated. Lateral skin incision was made dissection was carried out through skin and subcutaneous tissues. An ellipse directly over the ankle which was an open wound was removed. Deep cultures were sent including cultures of the bone. The hardware was removed without difficulty. There was a fibrin as coating around the plate. It was meticulously debrided and a use a curette to further carefully debride any abnormal appearing periosteum. The fracture was checked was noted to be healed. Any abnormal tissue was excisionally debrided sharply. The wound was meticulously irrigated with normal saline. Wound was closed with interrupted Vicryl and skin cooper. Wound was dressed sterilely. The patient tolerated the procedure well is transferred recovery room in satisfactory condition. Complications none. Complications: none Post-operative Condition: stable Disposition: Acute Care Plan for aftercare: Weightbearing as tolerated left lower extremity. Oral antibiotics for 10 days.
--- NOTE | 2021-01-25 14:21 | PM.PREOP ---
Pre-operative Note COVID-19 COVID-19 status: Negative Interval Note History & Physical reviewed/Exam performed by Physician: Yes Changes to H&P: No
--- NOTE | 2021-01-25 14:30 | SUR.PREOP ---
Block start time 1428[] . Monitoring initiated and maintained throughout procedure. Oxygen and medications given per anesthesiologist instructions. Patient remained stable throughout procedure, no adverse reactions noted. Block end time [1435 ].
--- NOTE | 2021-01-25 14:55 | SUR.OPER ---
Supine on padded OR bed, head on pillow, arms secured on padded arm boards at <90 degrees abduction, legs uncrossed, safety belt across abdomen, tape over blanket over nonoperative lower leg, bump under left hip.
--- NOTE | 2021-01-25 14:56 | P.PCN_ITS ---
Procedures Date/Time Date of procedure: 01/25/21 Time of procedure: 14:20 General Procedure description: Ultrasound guided popliteal sciatic nerve block for post op pain control after left ankle hardware removal by Dr. Barros. Risk and benefi ts of procedure discussed with patient. ASA monitoring applied to patient. Oxygen given via nasal cannula. 2 mg Versed and 100 mcg fentanyl given for procedural sedation. Skin site was prepped with chlorhexidine and allowed to fully dry. Sterile gloves, mask, hat and probe cover were used to maintain sterility. 2% lidocaine and 30ga needle was used to make a small skin wheal at needle insertion site. Under ultrasound guidance, a 21ga 100mm Pajunk needle was directed near the division of the sciatic nerve into tibial and peroneal nerve in the popliteal fossa (lateral approach). Patient reported no parasthesias. After negative aspiration, 20 mL 0.5% ropivicaine and 10mg dexamethasone were injected around sciatic nerve. Patient tolerated procedure well.
[2021-01-25] MEDS: BUPIVACAINE 0.25% (PF) VIAL 30 ML INJ (15:10)
[2021-01-25] MEDS: CEFAZOLIN 1 GM VIAL 2 GM IV (15:10)
--- NOTE | 2021-01-25 15:34 | SUR.PHASEI ---
Pt to PACU with Anesth and RN. Dr Bone notified of patient intermittent irregular beats with strips. No orders at this time.
[2021-01-25] MEDS: HYDROMORPHONE 2 MG TABLET 4 MG PO (15:43)
[2021-01-25] MEDS: fentaNYL 100 MCG/2 ML INJ IV (15:48)
[2021-01-25] MEDS: HYDROMORPHONE 2 MG INJ IV (15:54)
== END 2021-01-25 16:45 | disposition home or self-care (01) ==
PROVIDERS: Family Provider Internal Medicine; PCP Internal Medicine; Referring Provider Orthopaedic Surgery; Visit Provider Orthopaedic Surgery
PROC: (CPT 20680; principal; 2021-01-25 13:00)
DX: M25.572 Pain in left ankle and joints of left foot (principal); M25.472 Effusion, left ankle; T84.89XA Other specified complication of internal orthopedic prosthetic devices, implants and grafts, initial encounter; Z96.662 Presence of left artificial ankle joint
CPT/HCPCS: 20680; 64450; 87070; 87075; 87176; 87205; J0690; J1100; J1170; J2250; J2405; J2704; J3010

== ENCOUNTER 2021-03-04 13:45 | Outpatient (RCR) | payer OTHER, MEDICAID, SELFPAY ==
[2020-09-20 12:56] VITALS: BMI 27.9
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
--- NOTE | 2020-12-17 15:32 | PT-OP ANOTE ---
PT looks for fax information on a Dr. Salgado Ball at [facility] and there is not a Dr. Salgado Ball and so PT does not fax information to PCP.
--- NOTE | 2020-12-17 15:34 | PT-OP ANOTE ---
PT finds pt's PCP in EMR and it is Kevin Porter and will send PT treatment note to this doctor.
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
--- NOTE | 2020-12-23 09:15 | PT-OP ANOTE ---
Pt did not show for today's 9am appt, left message have an opening at 1345 otherwise will see on next scheduled appt 12/23 at 9.
--- NOTE | 2021-01-04 08:46 | PT-OP ANOTE ---
Pt cancelled appt 0705 via voicemail this am due to not feeling well, confirmed next appt 01/06.
--- NOTE | 2021-01-06 09:50 | PT-OP ANOTE ---
Pt missed another appointment, he did call in this morning to state that he is ill and cannot make it in today and so appointment was cancelled same day and not no show.
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
--- NOTE | 2021-02-24 08:35 | PT-OP ANOTE ---
Pt could not make first scheduled appointment for re-eval d/t no ride. This date, he is 15 minutes late and has not started paperwork post-op ankle surgeries. Will reschedule re-eval.
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
--- NOTE | 2021-02-25 15:42 | PT.OPPOC ---
Physical, Occupational & Speech Therapy At [facility] Current Diagnoses Unilateral primary osteoarthritis, right knee (02/25/21) Displaced bimalleolar fracture of right lower leg, initial encounter for closed fracture (02/25/21) Displaced bimalleolar fracture of left lower leg, initial encounter for closed fracture (02/25/21) Visit Care Team Role Provider Type Kevin Porter MD Family Provider Non-Staff Primary Care Provider Specialty: Internal Medicine Address: [address] [place] [address], [id number] Email: Monica Barros MD Attending Provider Physician Referring Provider Specialty: Orthopedic Surgery Address: [address] [place] [address], [id number] Email: [email or web address] Plan Of Care PT-OP-T Assessment and Plan Start: 12/10/20 13:34 Freq: Status: Active Protocol: Document 02/25/21 13:02 MB (Rec: 02/25/21 13:45 MB [id number]) Physical Therapy Assessment Rehab Potential Rehabilitation Potential Fair Evaluation Complexity Number of Personal Factors/Comorbidities 3 or More Number of Body Systems Impaired 4 or More Clinical Presentation at Evaluation Evolving Impairments Impairments Activity Tolerance,Balance, Edema,Functional Activities, Functional Mobility,Gait, Integument,Pain,Posture,ROM, Soft Tissue Mobility,Strength Other Impairments Personal factors include living at home alone and no current caregiver, pt on probation and pt still working towards smoking cessation. Body systems affected include neuromuscular, cardiopulmonary , musculoskeletal, metabolic/ visceral. His clinical presentation is evolving in setting of multiple medical conditions. Other Concerns Fall Risk Yes Age Related Concerns History of seizures, blacking out and injury, lives alone. Goals 5 Residential Goal (LTG) Pt will gait train at least 1500 feet in 6 minutes with or without LRAD to decrease fall risk and improve community ambulation by 04/28/21. 02/25/21: Pt gait trains 1366 feet in 6 minutes and pt reports mild LBP LTG Duration 8 weeks 4 Shiatsu Therapist Goal (LTG) Pt will perform HEP with I including ROM, strengthening, balance, flexibility and gait exercises to improve function, balance and gait by 04/28/21. 02/25/21: Pt is performing hip abduction and SLR at home. He is doing some heel raises on a piece of wood, going for walks and working out in the gym. He is using the recumbent stepper and some band exercises given by PT. LTG Duration 8 weeks 3 Residential Goal (LTG) Pt will perform at least 8 reps sit to stand without UE support in 30 sec to improve functional transfers by 02/15/21 . 02/25/21: 11 reps in 30 sec and pt stops due to right knee and back pain and so will d/c goal LTG Duration Met 2 Residential Goal (LTG) Pt will perform WNLs on FGA to decrease fall risk by 04/28/21 . 02/25/21: FGA score is 17/30 with greatest trouble with tandem gait and backwards gait . His overall gait is slow and he has increased Katerine angle which influenced backwards walking LTG Duration 8 weeks 1 Residential Goal (LTG) Pt will present with LEF score improvement to reflect no more than 35% functional impairment to improve gait and function by 04/28/21. 02/25/21: LEF score is 33/80, reflecting 58.75% impairment LTG Duration 8 weeks Assessment Summary Assessment Pt returns to PT after having hardware removed from left ankle. His left ankle pain is a lot better now. Deferred MMT right knee d/t pain (pt with injection about a month ago and may have a MRI per pt). B hip flexion 4/5, hip abduction 5/5; left knee flexion and extension 5/5; right ankle inversion, eversion and DF 4/5 and pt reports medial right knee pain; left ankle inversio , eversion and DF 5/5 with MMT ; B great toe extension 4/5. He presents with mild LE edema and skin dryness and his range is functional, though limited with PF and post-op B ankle fusion. Assessed 6MWT, sit to stands, FGA and LEF today and updated goals. Pt will benefit from PT to improve balance and strength. He might only require 2-4 treatments and set frequency out d/t scheduling challenges at the clinic. Physical Therapy Plan Frequency and Duration Frequency of Treatment 1x/Week Duration of Treatment 8 weeks Plan of Care Start Date 02/25/21 Plan of Care End Date 04/28/21 Therapeutic Interventions Therapeutic Interventions Aquatic Therapy,Balance Training,Canalithic Repositioning,Gait Training, Home Exercise Program,Joint Mobilizations,Manual Therapy, Neuromuscular Re-education, Patient/Caregiver Education, Self-Care/Home Management, Sensory Integration,Soft Tissue Mobilization,Taping, Therapeutic Activities, Therapeutic Exercises Modalities Cold Pack/Ice Massage,Hot Packs Next Visit Focus/Plan Next Note Type Treatment Note Next Visit Plan Watch pt perform all exercises he is doing at home and make any adjustments as needed, consider adding a balance exercise and further strengthening such as hip abduction and extension standing Plan of Care Dates Plan of Care Start Date 02/25/21 Plan of Care End Date 04/28/21 Electronically Signed by: Angelica Millan, PT 02/25/21 [id number] Please Sign and Return: I have reviewed this Plan of Care and certify that the skilled therapy services above are required to meet the patient?s needs. Physician Signature Date Printed Name and Credentials Clinical Instructor Signature Printed Name and Credentials
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
== END 2021-03-28 13:12 | disposition home or self-care (01) ==
LOC: PHYS 13:45
PROVIDERS: Family Provider Internal Medicine; PCP Internal Medicine; Referring Provider Orthopaedic Surgery; Visit Provider Orthopaedic Surgery
DX: S82.842A Displaced bimalleolar fracture of left lower leg, initial encounter for closed fracture (principal); S82.841A Displaced bimalleolar fracture of right lower leg, initial encounter for closed fracture; M17.11 Unilateral primary osteoarthritis, right knee
CPT/HCPCS: 97110; 97112; 97116; 97161; 97535

== ENCOUNTER → 2021-03-25 15:22 | Outpatient (CLI) | payer OTHER, MEDICAID, SELFPAY ==
[2020-09-20 12:56] VITALS: BMI 27.9
--- NOTE | 2021-03-25 15:23 | DI.MRI.S_ITS ---
PROCEDURE: MR KNEE RT WO CON INDICATIONS: Pain in right knee TECHNIQUE: Noncontrast sagittal PD fast spin echo and T2 fast spin echo with fat saturation, sagittal 3-D FLASH with fat saturation; coronal T1 spin echo and PD fast spin echo with fat saturation, and axial PD fast spin echo with fat saturation through the knee. COMPARISON: None. FINDINGS: Menisci: Medial meniscus: Ill-defined tear involving the medial meniscal body with abnormal signal extending to the undersurface and slight partial extrusion. Lateral meniscus: Partially discoid appearance of the lateral meniscus otherwise grossly intact. Cruciate ligaments: Anterior cruciate ligament: Intact. Posterior cruciate ligament: Intact. Medial structures: The medial collateral ligament: There is medial bowing of the medial collateral ligament, with mild internal signal changes and no complete rupture. There is adjacent soft tissue edema. The appearance could reflect reactive changes to medial compartment pathology, versus low-grade sprain of the MCL. Semimembranosus tendon: Insertional tendinopathy. Visualized pes anserinus tendons: Intact. Bursal fluid: none. Lateral structures: The lateral collateral ligament intact. Biceps femoris tendon appears intact. Popliteus tendon grossly unremarkable. Iliotibial band appears intact. Anterior structures: Quadriceps tendon: Intact. Medial patellofemoral ligament: Intact. Lateral patellofemoral ligament: Intact. Patellar tendon: Mild tendinopathy. Anterior soft tissues: Prepatellar and superficial infrapatellar subcutaneous edema/fluid. Deep infrapatellar region: Normal. Bones and cartilage: Marrow: Marrow edema involving the medial femoral condyle suggestive of contusion. There is subchondral signal change in the medial femoral condyle which is suspicious for osteochondral impaction Medial compartment: Diffuse partial-thickness femoral and tibial articular cartilage loss. Lateral compartment: No focal chondral defect. Patellofemoral compartment: No focal chondral defect. Joint space: Effusion: Large joint effusion. Popliteal fossa: Tiny 1 cm Canela's cyst. Loose bodies: None. IMPRESSION: Medial meniscal tear involving the body with slight partial extrusion. Adjacent MCL changes. Large joint effusion. Osteochondral impaction fracture involving the medial femoral condyle with associated reactive marrow edema Partially discoid appearance of the lateral meniscus otherwise intact. Patellar tendinopathy with adjacent edema and fluid. Dictated by: Jefferson Ponce M.D. on 03/25/2021 at 17:08 Approved by: Jefferson Ponce M.D. on 03/25/2021 at 17:34
== END ==
PROVIDERS: Family Provider Internal Medicine; PCP Internal Medicine; Referring Provider Orthopaedic Surgery; Visit Provider Orthopaedic Surgery
DX: M25.561 Pain in right knee (principal); S83.241A Other tear of medial meniscus, current injury, right knee, initial encounter; M25.461 Effusion, right knee; S72.431A Displaced fracture of medial condyle of right femur, initial encounter for closed fracture
CPT/HCPCS: 73721

== ENCOUNTER → 2021-04-07 13:21 | Outpatient (CLI) | payer OTHER, MEDICAID, SELFPAY ==
[2020-09-20 12:56] VITALS: BMI 27.9
[2021-04-07 14:23] LABS: Add Manual Diff / Slide Review NO; Basophils Absolute Auto 100 /uL (0-100); Basophils Percent Auto 0.6 % (0-2); Eosinophils Absolute Auto 100 /uL (0-450); Eosinophils Percent Auto 1.3 % (2-4); Hemoglobin 12.4 g/dL (13.5-17.5); Lymphocytes Absolute Auto 4400 /uL (1100-4500); Lymphocytes Percent Auto 46.9 % (25-40); Mean Corpuscular HGB Conc 32.5 % (30-36); Mean Corpuscular Volume 104.5 fL (80-100); Monocytes Absolute Auto 1000 /uL (0-900); Monocytes Percent Auto 10.2 % (3-14); Neutrophils Absolute Auto 3900 /uL (1500-7000); Platelet Count 124 X10^3/uL (150-400); Red Blood Cell Count 3.64 X10^6/uL (4.5-5.9); Red Cell Distribution Width 15.8 % (11.6-14.8); White Blood Cell Count 9.4 X10^3/uL (4.5-11.0)
[2021-04-07 14:37] LABS: Alanine Aminotransferase 53 IU/L (<50); Albumin 3.3 g/dL (3.5-5.0); Albumin Globulin Ratio 1.1 (1.0-2.8); Alkaline Phosphatase 368 U/L (38-126); Aspartate Aminotransferase 146 IU/L (17-59); BUN Creatinine Ratio 19.9 (6-22); Bilirubin Total 1.8 mg/dL (0.2-1.3); Blood Urea Nitrogen 44 mg/dL (9-20); Carbon Dioxide 24 mmol/L (22-32); Chloride 105 mmol/L (98-107); Estimated Glomerular Filt Rate 30.8 mL/min (>60); Gamma Glutamyl Transpeptidase 451 U/L (15-73); Globulin 3.1 g/dL (1.7-4.1); Glucose 102 mg/dL (70-100); HEMOLYSIS < 15 (0-50); Magnesium 1.7 mg/dL (1.6-2.3); Phosphorous 2.7 mg/dL (2.5-4.5); Sodium 137 mmol/L (137-145); Total Protein 6.4 g/dL (6.3-8.2)
[2021-04-07 14:38] LABS: Hemoglobin A1C% w Est Avg Glu 4.7 % (4.0-6.0)
[2021-04-08 09:43] LABS: Parathyroid Hormone Int 55 pg/mL (15-65)
[2021-04-09 00:32] LABS: Cyclosporine, Blood 91 ng/mL (100-400)
== END ==
PROVIDERS: Family Provider Internal Medicine; PCP Internal Medicine; Referring Provider Internal Medicine Gastroenterology; Visit Provider Internal Medicine Gastroenterology
DX: Z94.4 Liver transplant status (principal); Z79.899 Other long term (current) drug therapy; Z48.298 Encounter for aftercare following other organ transplant; N25.81 Secondary hyperparathyroidism of renal origin; E83.30 Disorder of phosphorus metabolism, unspecified; Z01.812 Encounter for preprocedural laboratory examination; Z73.9 Problem related to life management difficulty, unspecified
CPT/HCPCS: 36415; 80053; 80076; 80158; 82977; 83036; 83735; 83970; 84100; 85025

== ENCOUNTER → 2021-04-09 12:12 | Outpatient (CLI) | payer OTHER, MEDICAID, SELFPAY ==
[2020-09-20 12:56] VITALS: BMI 27.9
[2021-04-09 12:57] LABS: INR 0.9 (0.9-1.3); Prothrombin Time 10.4 SECONDS (10.1-12.7)
== END ==
PROVIDERS: Family Provider Internal Medicine; PCP Internal Medicine; Referring Provider Orthopaedic Surgery; Visit Provider Orthopaedic Surgery
DX: Z79.899 Other long term (current) drug therapy (principal)
CPT/HCPCS: 85610

== ENCOUNTER 2021-04-23 22:41 | Emergency (ER) | payer OTHER, MEDICAID, SELFPAY ==
[2020-09-20 12:56] VITALS: BMI 27.9
[2021-04-23 22:51] VITALS: BP 159/90; PULSE 78; RESP 18; TEMP 36.6; O2SAT 97; BMI 30.1
--- NOTE | 2021-04-24 00:11 | DI.RAD.S_ITS ---
PROCEDURE: XR KNEE RT 3V INDICATIONS: knee gave out pain TECHNIQUE: 3 views of the knee were acquired. COMPARISON: [facility], CR, XR KNEE RT 3V, 01/20/2019, 4:31. FINDINGS: Bones: Small intra-articular loose body or bodies adjacent to the medial tibial spine. Subtle lucency at the tibial spine. There is lateral subluxation of the patella. No suspicious bony lesions. Soft tissues: Small joint effusion. No suspicious soft tissue calcifications. IMPRESSION: 1. Small intra-articular loose bodies. These could represent small fracture fragments possibly from the tibial spine or synovial osteochondroma. 2. Small suprapatellar joint effusion. 3. Lateral subluxation of the patella concerning for ligamentous injury. Consider further evaluation with MRI or CT. This report is concordant with the overnight preliminary interpretation. Dictated by: Aj Doyle M.D. on 04/24/2021 at 7:58 Approved by: Aj Doyle M.D. on 04/24/2021 at 8:02
--- NOTE | 2021-04-24 00:39 | ED_ITS ---
HPI - Fall General Chief Complaint: Fall Stated Complaint: R Knee Pain Time Seen by Provider: 04/24/21 00:15 Source: patient and EMS Mode of arrival: EMS History of Present Illness HPI Narrative: Patient is a 55-year-old male Who has chronic ongoing right knee pain. In fact he had an MRI 03/25/2021 showing a medial meniscal tear the large joint effusion. Tonight he felt like his knee gave out on him and slipped. He is having increasing pain difficulty ambulating no other injury in the fall. He is able to move his leg some but it is quite painful. Related Data Home Medications Medication Instructions Recorded Confirmed allopurinol 100 mg tablet 100 mg PO DAILY 01/14/20 01/25/21 cyclosporine modified 25 mg capsule 25 mg PO BID 01/14/20 01/25/21 duloxetine 20 mg capsule,delayed 20 mg PO DAILY 01/14/20 01/25/21 release (Cymbalta) fentanyl 25 mcg/hr transdermal See Rx Instructions .ROUTE .COMPLEX 01/14/20 01/25/21 patch (Duragesic) gabapentin 300 mg capsule 300 mg PO BID 01/14/20 01/25/21 hydroxyzine pamoate 25 mg capsule 25 mg PO BEDTIME PRN 01/14/20 01/25/21 (Vistaril) lidocaine 5 % topical patch 1 patch TOPICAL DAILY 01/14/20 01/25/21 (Lidoderm) mycophenolate mofetil 500 mg 500 mg PO BID 01/14/20 01/25/21 tablet (CellCept) ondansetron HCl 4 mg tablet 4 mg PO Q8H PRN 01/14/20 01/20/21 (Zofran) pyridoxine (vitamin B6) 100 mg 100 mg PO DAILY 01/14/20 01/25/21 tablet quetiapine 25 mg tablet (Seroquel) 25 mg PO BEDTIME 01/14/20 01/25/21 ursodiol 300 mg capsule 300 mg PO BID 01/14/20 01/25/21 vitamin B complex-vitamin C-folic 1 tab PO DAILY 01/14/20 01/25/21 acid 0.8 mg tablet (Kellie-Ramila) furosemide 20 mg tablet 20 mg PO DAILY 07/26/20 01/25/21 rifaximin 550 mg tablet (Xifaxan) 550 mg PO BID 09/20/20 01/25/21 metoprolol succinate 25 mg PO 01/25/21 tablet,extended release 24 hr Previous Rx's Medication Instructions Recorded ondansetron 4 mg disintegrating 4 mg PO TID-QID PRN #10 tab 05/14/20 tablet pantoprazole 40 mg tablet,delayed 40 mg PO DAILY #30 tab 05/14/20 release (Protonix) hydromorphone 4 mg tablet 4 mg PO Q6H PRN #30 tab 09/24/20 acetaminophen 325 mg capsule 650 mg PO Q4-6H PRN #0 cap 09/29/20 (Tylenol) cyclobenzaprine 10 mg tablet 10 mg PO Q8H PRN #0 tab 09/29/20 naloxone 4 mg/actuation nasal 1 spray INTRANASAL PER PKG DIR 30 09/29/20 spray (Narcan) Days #1 ea cephalexin 750 mg capsule (Keflex) 750 mg PO TID #30 cap 01/25/21 Allergies Allergy/AdvReac Type Severity Reaction Status Date / Time codeine Allergy Severe Vomiting Verified 06/26/20 10:11 NSAIDS (Non-Steroidal Allergy Severe Abdominal Verified 06/26/20 10:09 Anti-Inflamma Pain venom-honey bee Allergy Severe Wheezing Verified 06/26/20 10:11 [BEE VENOM (HONEY BEE)] dextromethorphan AdvReac Severe Seizure Verified 06/26/20 10:09 copper AdvReac Intermediate Verified 06/26/20 10:09 morphine AdvReac Intermediate Vomiting Verified 06/26/20 10:09 oxycodone AdvReac Intermediate Vomiting Verified 06/26/20 10:09 tizanidine AdvReac Unknown Verified 06/26/20 10:09 adhesive tape AdvReac Verified 06/26/20 10:09 pseudoephedrine AdvReac Verified 01/14/20 21:48 NYQUIL Allergy Unknown Uncoded 05/14/20 01:38 Review of Systems Review of Systems Narrative: GENERAL: Denies chills,fever HEENT: Denies throat pain RESPIRATORY: Denies dyspnea, cough, wheezing CARDIOVASCULAR: Denies chest pain, palpitations GASTROINTESTINAL: Denies nausea, vomiting MUSCULOSKELETAL: See HPI SKIN: No rash, no laceration, no pruritus NEUROLOGIC: Denies weakness, dizziness, headache, numbness 8 point review of systems is negative except for those stated above and HPI Patient History Medical History (Updated 04/24/21 @ 01:22 by Mei Akhtar DO) Cirrhosis of liver CKD (chronic kidney disease) Compression fracture Depression GERD (gastroesophageal reflux disease) Gout Hepatitis C Hypertension Liver cancer GUILLE (obstructive sleep apnea) Osteoporosis Paroxysmal atrial fibrillation Thrombocytopenia Surgical History (Updated 01/20/21 @ 09:51 by Leigh Victor RN) H/O right wrist surgery History of open reduction and internal fixation (ORIF) procedure (09/22/20) History of right hip replacement Liver transplant recipient Presence of left artificial elbow joint Family History Mother Renal failure Father Diabetes mellitus Congestive heart failure Social History household members: none Smoking Status: Former smoker alcohol intake: former Smoking Status: Former smoker tobacco type: cigarettes alcohol intake frequency: a few times a month Alcohol type: hard liquor Substance Use Type: marijuana Exam Initial Vital Signs Initial Vital Signs: Vital Signs Temperature 98 F 04/23/21 22:51 Pulse Rate 78 04/23/21 22:51 Respiratory Rate 18 04/23/21 22:51 Blood Pressure 159/90 H 04/23/21 22:51 Pulse Oximetry 97 04/23/21 22:51 GENERAL: Alert 55-year-old male no acute distress CARDIOVASCULAR: peripheral pulses in tact, cap refill <2 sec RESPIRATORY: No respiratory distress, speaks in full sentences without difficulty EXTREMITIES: Normal range of motion, no clubbing or edema. Neurovascularly intact Right knee does have some swelling no erythema he is it is able to flex and extend some but limited range of motion secondary to pain. Distal pedal pulse intact no hip pain pelvis stable NEUROLOGICAL: Cranial nerves II through XII grossly intact. Normal gait and speech. SKIN: Warm, dry, no petechiae, no rashes or lesions. Course Orders Ordered: ED Orders 04/24/21 00:11 XR knee RT 3V Stat 04/24/21 01:37 CT LE RT wo con Stat Discontinued Medications Hydromorphone HCl (Hydromorphone 1 Mg Inj) 1 mg IM NOW ONE Stop: 04/24/21 00:46 Last Admin: 04/24/21 00:51 Dose: 1 mg Documented by: PAO Hydromorphone HCl (Hydromorphone 1 Mg Inj) 1 mg IM NOW ONE Stop: 04/24/21 03:03 Last Admin: 04/24/21 03:13 Dose: 1 mg Documented by: MAGNOLIA Vital Signs Vital signs: Vital Signs - 8 hr 04/23/21 22:51 04/24/21 01:17 04/24/21 06:25 Temperature 98 F Pulse Rate 78 77 87 Respiratory Rate 18 18 16 Blood Pressure 159/90 H 167/90 H 168/88 H Pulse Oximetry 97 95 MDM - Fall Imaging Data Extremity x-ray #1: Radiologist's Impression: Preliminary report: Is lateral patellar subluxation with possible medial soft tissue injury. Loose intra-articular body may reflect fracture fragment of synovial osteo chondroma. Small knee joint effusion. Possible tibial spine fracture CT lower extremity: Radiologist's Impression: No acute fracture involving the right knee. Tibial spines are intact. Minimal lateral subluxation of the patella best if and axial image 25 and series 5. If concern for ligament injury recommend MRI right knee. Intra-articular loose body as posterior medial joint space, donor site at the inferior medial femoral condyle image 100 series 4. Febrile and lateral joint space narrowing up finding indicative of osteoarthritis. Small suprapatellar joint effusion with some stranding and edema involving the medial compartment [facility] Narrative Medical decision making narrative: The patient is given a knee immobilizer. He chronic pain for which he takes fentanyl patches and hydrocodone for at home. I have explained that he will be given pain control here in the ED but no prescription. He seems fine with this plan. He is given 2 shots of dilaudid resting comfortably. Needing to wait for taxi service to start running again. Discharge Plan Departure Patient Disposition: Home Clinical Impression: Strain of right knee Qualifiers: Encounter type: initial encounter Qualified Code(s): S86.911A - Strain of unspecified muscle(s) and tendon(s) at lower leg level, right leg, initial encounter Instructions: DI for Knee Sprain Activity Restrictions/Additional Instructions: *You have been diagnosed with right knee strain *What to do: Wear knee brace well active. Elevate, ice. Please follow-up with orthopedic *Continue to take medications as directed Take your pain medications as previously prescribed if you should feed more you need to talk to your primary care provider *Follow up with your primary care provider in 2-3 days *Return to ER if you should have increasing weakness, numbness, tingling any new, worsening or concerning symptoms Prescriptions: No Action furosemide 20 mg tablet 20 mg PO DAILY RF: 0 quetiapine [Seroquel] 25 mg Tablet 25 mg PO BEDTIME RF: 0 cyclosporine modified 25 mg Capsule 25 mg PO BID RF: 0 ondansetron HCl [Zofran] 4 mg Tablet 4 mg PO Q8H PRN (Reason: Nausea) RF: 0 allopurinol 100 mg Tablet 100 mg PO DAILY RF: 0 mycophenolate mofetil [CellCept] 500 mg Tablet 500 mg PO BID RF: 0 lidocaine [Lidoderm] 5 % Adhesive Patch,Medicated 1 patch TOPICAL DAILY RF: 0 ursodiol 300 mg Capsule 300 mg PO BID RF: 0 gabapentin 300 mg Capsule 300 mg PO BID RF: 0 Kellie-Ramila 0.8 mg Tablet 1 tab PO DAILY RF: 0 pyridoxine (vitamin B6) 100 mg Tablet 100 mg PO DAILY RF: 0 fentanyl [Duragesic] 25 mcg/hr Patch 72 Hour See Rx Instructions .ROUTE .COMPLEX RF: 0 hydroxyzine pamoate [Vistaril] 25 mg Capsule 25 mg PO BEDTIME PRN (Reason: Itching) RF: 0 duloxetine [Cymbalta] 20 mg Capsule,Delayed Release(Dr/Ec) 20 mg PO DAILY RF: 0 ondansetron 4 mg tablet,disintegrating 4 mg PO TID-QID PRN (Reason: nausea and vomiting) Qty: 10 RF: 0 pantoprazole [Protonix] 40 mg tablet,delayed release (DR/EC) 40 mg PO DAILY Qty: 30 RF: 0 Xifaxan 550 mg Tablet 550 mg PO BID RF: 0 hydromorphone 4 mg tablet 4 mg PO Q6H PRN (Reason: pain) Qty: 30 RF: 0 cyclobenzaprine 10 mg Tablet 10 mg PO Q8H PRN (Reason: Spasms) Qty: 0 RF: 0 acetaminophen [Tylenol] 325 mg Capsule 650 mg PO Q4-6H PRN (Reason: Pain, Moderate) Qty: 0 RF: 0 Narcan 4 mg/actuation [place],Non-Aerosol 1 spray INTRANASAL PER PKG DIR 30 Days Qty: 1 RF: 0 metoprolol succinate 25 mg tablet extended release 24 hr PO RF: 0 cephalexin [Keflex] 750 mg capsule 750 mg PO TID Qty: 30 RF: 0 Referrals: Kevin Porter MD [Primary Care Provider] -
[2021-04-24] MEDS: HYDROMORPHONE 1 MG INJ IM ×2 (00:51→03:13)
[2021-04-24 01:17] VITALS: BP 167/90; PULSE 77; RESP 18
--- NOTE | 2021-04-24 01:37 | DI.CT.S_ITS ---
PROCEDURE: CT LE RT WO CON INDICATIONS: possible tibial spine fracture TECHNIQUE: Noncontrast 1-1.5 mm axial sections acquired from the mid-patella to the proximal tibia, with coronal and sagittal reformats. COMPARISON: [facility], CR, XR KNEE RT 3V, 04/24/2021, 0:14. [facility], MR, MR KNEE RT WO CON, 03/25/2021, 15:31. [facility] [place], CR, XR KNEE 4+ VIEWS RIGHT, 12/08/2020, 8:17. FINDINGS: Image quality: Good. Mild motion artifact distally. Bones: Cortical irregularity and thinning and cystic change at the medial femoral condyle. This is at the site of prior marrow edema. There is also sclerosis at the medial tibial plateau. Small loose body posterior medial joint. Trace is subtle calcific density lateral to the tibial spines. No tibial spine fracture demonstrated. Medial joint space narrowing. Minimal lateral subluxation of the patella in relation to the distal femur. Small patellar osteophytes. Soft tissues: Small to moderate-sized joint effusion. IMPRESSION: 1. Osteochondral defect at the posterior medial femoral condyle. 2. Small intra-articular loose bodies. 3. Moderate DJD most pronounced in the medial compartment. 4. Small to moderate-sized joint effusion. Dictated by: Aj Doyle M.D. on 04/24/2021 at 9:21 Approved by: Aj Doyle M.D. on 04/24/2021 at 9:32
[2021-04-24 06:25] VITALS: BP 168/88; PULSE 87; RESP 16; O2SAT 95
== END 2021-04-24 06:28 | disposition home or self-care (01) ==
PROVIDERS: Emergency Provider Emergency Medicine; Family Provider Internal Medicine; PCP Internal Medicine
DX: S86.911A Strain of unspecified muscle(s) and tendon(s) at lower leg level, right leg, initial encounter (principal)
CPT/HCPCS: 73562; 73700; 96372; 99284; J1170

== ENCOUNTER → 2021-05-06 11:13 | Outpatient (CLI) | payer OTHER, MEDICAID, SELFPAY ==
[2020-09-20 12:56] VITALS: BMI 27.9
[2021-05-06 14:18] LABS: COVID19 -Nasal RAPID Negative (Negative)
== END ==
PROVIDERS: Family Provider Internal Medicine; PCP Internal Medicine; Visit Provider Nurse Practitioner
DX: Z20.822 Contact with and (suspected) exposure to COVID-19 (principal)
CPT/HCPCS: 87635; C9803

== ENCOUNTER 2021-05-09 06:41 | Observation (INO) | payer OTHER, MEDICAID, SELFPAY ==
[2020-09-20 12:56] VITALS: BMI 27.9
[2021-04-27 07:58] VITALS: BMI 30.9
[2021-05-09] VITALS (18 sets, daily range): BP systolic 92–150; BP diastolic 62–92; PULSE 65–74; RESP 8–18; TEMP 35.9–36.5; O2SAT 85–100; BMI 32.6
--- NOTE | 2021-05-09 06:44 | DI.RAD.S_ITS ---
PROCEDURE: XR KNEE RT 1TO2V INDICATIONS: TKA TECHNIQUE: 2 view(s) of the knee acquired. COMPARISON: [facility], , XR KNEE RT 3V, 04/24/2021, 0:14. FINDINGS: Bones: Patient is status post knee joint arthroplasty. Hardware components are in expected positions. Visualized bony structures are intact. Soft tissues: Overlying postoperative changes are noted. IMPRESSION: Expected immediate postoperative appearance of right TKA. Dictated by: Nba Green [facility] Interpreted: Josefina Riddle MD on 05/09/2021 at 11:07 Transcribed by: STEVE on 05/09/2021 at 11:08 Approved by: Josefina Riddle MD, PhD on 05/09/2021 at 15:10
[2021-05-09] MEDS: PREGABALIN 75 MG CAPSULE PO (07:32)
--- NOTE | 2021-05-09 07:34 | PM.PREOP ---
Pre-operative Note COVID-19 COVID-19 status: Negative Interval Note History & Physical reviewed/Exam performed by Physician: Yes Changes to H&P: No
--- NOTE | 2021-05-09 07:35 | PM.OP.1 ---
Operative Date/Time/Diagnoses Date of procedure: 05/09/21 Time of procedure: 08:00 Pre-op diagnosis: right knee OA, AVN MFC Post-op diagnosis: same Procedure & Clinicians Procedure: Right total knee arthroplasty Same procedure as scheduled: Yes Indications: The patient has had progressively worsening right knee pain with radiographic changes consistent with arthritis. Non-operative management has failed and the patient has requested total knee replacement. The risks, benefits and alternatives to surgery were discussed with the patient prior to proceeding. Risks discussed included, but were not limited to, failure to relieve pain, stiffness, infection, nerve damage, deep venous thrombosis, pulmonary embolism, stroke, coma, heart attack, permanent paralysis and , as well as the potential need for eventual revision of the prosthetic. 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 Surgeon: Monica Barros Stud Sheep Farmer: Madelin Bear Anesthesia Type: General and Spinal Operative Notes Findings: Fairly large osteochondral defect off of the medial femoral condyle with a grossly loose articular cartilage fragment with necrotic bone at the base in the medial femoral condyle Closure Type: primary Specimen(s): none sent Prosthetic devices, grafts, tissues, transplants, or devices: Journey BCS 2 size 8 femur, size 8 tibia, +10 constrained poly, 38 mm oval patella Applied: drain(s) Estimated Blood Loss (mL): 250 Blood products transfused: none Tourniquet time (min): 65 Procedure in detail: The patient was seen in the pre-operative area, where the patient identified the right knee as the operative site and this was marked with my initials. The patient received pre-operative antibiotics, and was taken to the operating room and placed on the operative table in the supine position. After satisfactory anesthesia, a flight crew time clerk out was performed. The right leg was encircled with a tourniquet about the proximal thigh, and the leg was prepared from the toes to the tourniquet with ChloroPrep in the usual fashion and draped through sterile drapes. The leg was elevated and exsanguinated with Eschmark bandage and the tourniquet inflated to [250] mmHg pressure. The knee was approached through an approximately 18 cm incision centered over the patella and carried into the knee through a medial parapatellar arthrotomy. A portion of the medial and lateral meniscus was resected. Soft tissue was carefully mobilized around the patella the patella was measured with a caliper. Bone was resected from the patella and the patellar height was reconstituted with up an appropriate sized patellar component. A cover was then placed on the patella. A small amount of additional medial and lateral meniscus was resected. The distal femur was cut at 5?. A [+2] cut was used. It looked like an appropriate distal femoral cut and the cut was made without difficulty. An extramedullary guide was used for the tibial cut. 10 mm was resected off the least affected side.The tibia was prepared. The rotation was assessed. The patient was placed in extension residual medial and lateral meniscus as well as any residual bone was carefully resected. [No] additional tibia was resected. Hemostasis was achieved especially posteriorly. Additional local was injected into the posterior capsule. The extension gap was assessed and additional releases for gap balancing were performed as necessary. It was checked with the gap bulwark carpenter. The femoral component was trial was placed and the notch was finished. The rotation was assessed and the appropriate size femoral guide was placed on the distal femur and finishing cuts were made. There is no evidence of notching. The anterior, posterior and chamfer cuts were then made. The posterior osteophytes and soft tissues were then removed. The posterior capsule was injected with part of a mixture of 60 ml 0.25% Marcaine mixed with 20 ml Exparel for post operative pain control. The remainder of this mixture was injected into the capsule and subcutaneous tissues during cement curing. The tibial and femoral components were then placed and the knee placed through a range of motion. Range of motion was [0-130], with good stability throughout the range. Her slight attenuation of the medial collateral ligament and a constrained poly was selected to protect the MCL and improved stability. He also had moderate softening of the most medial aspect of the medial femoral condyle consistent with his osteonecrosis of the medial femoral condyle. The trials were then removed, and the tibia was finished. The bone was prepared with pulsatile lavage, and dried with a sponge. Cement was applied and the final prosthetics placed. Excess cement was removed during and after cement curing. A brief Betadine soak was performed. After confirming there was no extruded cement posteriorly, the final tibial insert was placed. The knee was copiously irrigated and the tourniquet deflated. Hemostasis was obtained with the Bovie cautery. A drain was placed and brought out superolaterally. The capsule was closed with interrupted nonabsorbable suture. The subcutaneous layer was closed with barbed sutures, and the skin with a running 3-0 V-Lock suture and Surgical glue. An Aquacel Ag dressing was applied and the patient was taken to recovery having tolerated the procedure well. Complications: none Post-operative Condition: stable Disposition: Acute Care Plan for aftercare: The patient will be maintained on a standard total knee replacement protocol with weight bearing as tolerated. The patient will receive aspirin and sequential compression devices for DVT prophylaxis. The patient will be discharged home when safe for the home environment.
[2021-05-09] MEDS: LACTATED RINGERS 1,000 ML 42 ML IV ×2 (07:48→11:06)
[2021-05-09] MEDS: CEFAZOLIN 1 GM VIAL 2 GM IV ×3 (08:00→22:14)
--- NOTE | 2021-05-09 08:26 | SUR.OPER ---
Supine on padded OR bed. Pillow under head, arms secured on padded armboards <90 degree abduction. Safety belt across torso. Non-operative leg secured with tape over blanket over lower leg. Operative leg secured in DeMayo/Jasbir/Nathe positioner. Foam padded brace at thigh of operative leg.
[2021-05-09] MEDS: TRANEXAMIC ACID 1,000 MG VIAL 2000 MG INJ ×2 (08:27→10:02)
[2021-05-09] MEDS: BUPIVACAINE 0.25% (PF) VIAL 30 ML INJ (08:41)
[2021-05-09] MEDS: EPINEPHrine 1 MG/ML 0.15 MG INJ (08:42)
[2021-05-09] MEDS: fentaNYL 100 MCG/2 ML INJ IV ×2 (10:46→10:54)
[2021-05-09] MEDS: HYDROMORPHONE 2 MG INJ IV ×3 (11:03→11:35)
[2021-05-09] MEDS: HYDROMORPHONE 2 MG TABLET 4 MG PO (11:42)
[2021-05-09] MEDS: OXYCODONE IR 10 MG TABLET PO ×2 (12:31→17:38)
[2021-05-09] MEDS: hydrOXYzine pamoate 25 MG CAPSULE PO (12:31)
[2021-05-09] MEDS: LACTATED RINGERS 1,000 ML 100 ML IV ×2 (12:32→22:15)
[2021-05-09] MEDS: CYCLOBENZAPRINE 10 MG TABLET PO (13:25)
[2021-05-09] MEDS: ACETAMINOPHEN 325 MG TABLET 650 MG PO ×2 (14:19→21:03)
--- NOTE | 2021-05-09 14:37 | PT.IIE ---
Current Diagnoses Unilateral primary osteoarthritis, right knee (05/09/21) Idiopathic aseptic necrosis of unspecified femur (05/09/21) Nondisplaced fracture of medial condyle of right femur, initial encounter for closed fracture (05/09/21) Surgery Performed Operation Date: 05/09/21 07:45 Actual Procedures p Total Knee Arthroplasty(Right) - Monica Barros MD Medical History (Last Updated 04/27/21 @ 13:11 by Leigh Victor RN) Cirrhosis of liver CKD (chronic kidney disease) Compression fracture Depression Former smoker GERD (gastroesophageal reflux disease) Gout Hepatitis C (~2011) History of vertebral compression fracture Hypertension Immunosuppression Liver cancer Medical marijuana use GUILLE (obstructive sleep apnea) Osteoporosis PAC (premature atrial contraction) Pain management contract agreement Paroxysmal atrial fibrillation PVC (premature ventricular contraction) Thrombocytopenia Physical Therapy Inpatient Evaluation/Re-Eval M1 PT/OT-IP Prior Functional Status Start: 05/09/21 14:25 Freq: NEEDED Status: Active Protocol: Document 05/09/21 14:25 OF (Rec: 05/09/21 14:37 OF [id number]) Medical Review Prior Functional Status Medical History Reviewed Yes Mobility and Gait Pt has assist from home health aid, he states he used a cane occasionally he has been limited with mobility due to back pain Social History Household Members caregiver,none Living Arrangements RV Number of Floors (Floors) One Floor Number of Stairs To Enter/Railing? 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 M2 PT-IP Current Condition Start: 05/09/21 14:25 Freq: NEEDED Status: Active Protocol: Document 05/09/21 14:25 OF (Rec: 05/09/21 14:37 OF [id number]) Physical Therapy Current Condition Current Condition Evaluation Date 05/09/21 Treatment Diagnosis Generalized weakness, L TKA Onset Date 05/09/21 Weight Bearing Status Weight Bearing Status Weight Bear as Tolerated M3 PT-IP Subjective Start: 05/09/21 14:25 Freq: NEEDED Status: Active Protocol: Document 05/09/21 14:25 OF (Rec: 05/09/21 14:37 OF [id number]) Subjective Physical Therapy Visit Type Type Initial Evaluation Visit Start Time 14:05 Visit Stop Time 14:30 Total Visit Minutes 25 Number of ELECTRIC POWER SUPERINTENDENT Visits 0 Physical Therapy Visit Comments Patient Comments I cannot do anything today Patient Goals Get better than this Therapy Pain Assessment Pain When Pain Assessed At Rest Pain Present Pain Present Denied Pain M4 PT-IP Mobility and Gait Start: 05/09/21 14:25 Freq: NEEDED Status: Active Protocol: Document 05/09/21 14:25 OF (Rec: 05/09/21 14:37 OF [id number]) PT-Bed Mobility Assessment Rolling Level of Assist Maximal Assistance Supine to Sit Supine to Sit Maximum Assistance PT-Transfer Assessment Comments Mobility Comments Pt refuses to sit EOB, refuses further attempts for rolling, standing, or AMB Gait Assessment Comments Gait Comments Pt refuses any out of bed activity, refuses standing, refuses walking despite repeated education upon need to mobilize after surgery Stair Climbing Assessment Comments Stair Climbing Comments not attempted due to pt refusing to stand or AMB PT-Balance Assessment Sitting Balance and Reactions Static Sitting Balance Ability Normal Comments Other Balance Tests/Deviations/Treatment Unable to assess standing : balance due to pt refusal M5 PT-IP Objective Assessments Start: 05/09/21 14:25 Freq: NEEDED Status: Active Protocol: Document 05/09/21 14:25 OF (Rec: 05/09/21 14:37 OF [id number]) Orientation Orientation/Cognition Level of Alertness Lethargic Orientation Name,Age,Birthday,Month,Date, Year,Day of Week,Place, Situation Language Function Ability No Deficits Noted Gross Range of Motion Upper Extremity ROM Assessment Within Functional Limits Lower Extremity ROM Assessment Right Impaired Impairments Pt tolerates only 170-80 PROM. He does not initiate AROM. Strength Upper Extremity Strength Assessment Within Functional Limits Lower Extremity Strength Assessment Right Impaired Comments Strength Comments Pt demonstrate quad contraction, ankle plantarflexion/dorsiflexion, but does not generate movement Coordination Assessment Gross Coordination Gross Coordination WNL Assessment Finger to Nose Test Normal Performance Pronation/Supination Test Normal Performance Sensation Assessment Sensation Gross Sensation WNL Muscle Tone Muscle Tone WNL Yes M6 PT-IP Treatment Start: 05/09/21 14:25 Freq: NEEDED Status: Active Protocol: Document 05/09/21 14:25 OF (Rec: 05/09/21 14:37 OF [id number]) Physical Therapy Treatment Exercises Exercises Ankle Pumps,Gluteal Sets,Quad Sets Knee ROM Measurement 170-80 PROM Education Education Provided Weight Bearing Status,Post-Op Packet M7 PT-IP Assessment and Plan Start: 05/09/21 14:25 Freq: NEEDED Status: Active Protocol: Document 05/09/21 14:25 OF (Rec: 05/09/21 14:37 OF [id number]) PT Summary Assessment and Plan Potential Rehabilitation Potential Good Status of Condition at Evaluation Stable Summary Impairments Pain,ROM,Strength,Balance, Transfers,Gait,Activity Tolerance Assessment Summary Earnest is a 55yo male s/p R TKA. He refuses all mobility upon assessment and states he has pain in knee that makes it difficult to move. He has been educated upon need to mobilize after surgery for improved outcomes. He declines therex while in bed, transfer training, or gait training. He will require continued therapy to address lack of AROM, assess gait pattern, dynamic balance, and DC destination due to his unwillingness to mobilize during evaluation. Nursing aware of pt performance, agreeable to using 2 person assist for safety. FWW in room if needed. Goals Bed Mobility Goal Independent Transfer Goal Independent Gait Goal Standby Assistance Gait Distance 50 Other Goals ascend/descend 5 steps SBA to return home with caregiver Days to Meet Goals 3 Frequency of Treatment Frequency Of Treatment Twice a Day Treatment Plan Physical Therapy Treatment Plan Bed Mobility Training,Transfer Training,Gait Training, Therapeutic Exercise,Balance Retraining,Post Op Education, Discharge Planning, Neuromuscular Re-ed, Coordination Retraining Recommendations To Nursing Amount of Assist Needed 2 Person Assist Discharge Recommendations PT Discharge Recommendations Home Health,SNF Rehab,Acute Rehab Other Discharge Recommendations SNF vs acute rehab vs home health depending upon future assessments due to limited participation with initial evaluation Transportation Needs at Discharge Private Vehicle
--- NOTE | 2021-05-09 15:29 | PC.NURSE ---
Pt arrived to room 207 from PACU at 1215. Continuous pulse ox monitor initiated as well as post op vitals per protocol. Vitals are stable. Pt is drowsy but oriented; c/o pain. Medicated with Oxycodone 10 mg IR and Vistaril 25 mg PO for c/o pain. After about 1 hour pt continued to c/o pain. medicated with Flexeril, then Tylenol an hour later. Pt dozed back to sleep. Now on RA sats 95%. PT attempted to eval patient but patient states he just got comfortable and declined to work with PT at this time. Ancef IV given. Lr infusing at 100 ml/hr. Pt still needs to void. Report given to Gail SAMAYOA.
[2021-05-09] MEDS: HYDROMORPHONE 4 MG TABLET PO (15:56)
[2021-05-09] MEDS: GABAPENTIN 300 MG CAPSULE PO (21:02)
[2021-05-09] MEDS: DOCUSATE 100 MG CAPSULE PO (21:02)
[2021-05-09] MEDS: RIFAXIMIN 550 MG TABLET PO (21:02)
[2021-05-09] MEDS: ursodioL 300 MG CAPSULE PO (21:02)
[2021-05-09] MEDS: CYCLOSPORINE, MODIFIED 25 MG CAPSULE PO (21:02)
[2021-05-09] MEDS: ASPIRIN EC 81 MG TABLET PO (21:02)
[2021-05-09] MEDS: MYCOPHENOLATE MOFETIL 500 MG TABLET PO (21:02)
[2021-05-09] MEDS: TAMSULOSIN 0.4 MG CAPSULE PO (21:03)
[2021-05-09] MEDS: QUETIAPINE 25 MG TABLET PO (21:03)
--- NOTE | 2021-05-09 21:42 | PC.NURSE ---
Pt has been complaining of right knee pain and requesting pain medication. Pt falls asleep during a conversation. He also felt asleep during dinner tonight. Pt does take narcotics at home on a daily basis. Lung sounds are diminished throughout and sating in the mids 90's on RA. Pt had a bladder scan of 487 and an In and out cath with 450 ml of dark yellow urine. This nurse didn't give patient pain medications tonight due to his drowsiness. Pt is now on cpad which he normally uses at night. Will continue to monitor.
[2021-05-10] VITALS (10 sets, daily range): BP systolic 125–162; BP diastolic 63–99; PULSE 73–103; RESP 14–18; TEMP 36.2–36.9; O2SAT 95–99
[2021-05-10] MEDS: OXYCODONE IR 5 MG TABLET PO (00:10)
--- NOTE | 2021-05-10 04:45 | PC.NURSE ---
Pt is A and O x 4, VSS. She denies epigastric pain. Able to eat and drink and sleep. Voiding in BR qs, clear yellow. Ambulates independently.
[2021-05-10] MEDS: OXYCODONE IR 10 MG TABLET PO ×6 (05:44→23:42)
[2021-05-10 05:47] LABS: Hematocrit 32.9 % (41-53); Hemoglobin 10.8 g/dL (13.5-17.5)
--- NOTE | 2021-05-10 06:44 | PC.NURSE ---
Pt is A and O x 4, very drowsy during noc shift. Rates px 7-8/10, requests meds regularly. Bladder scan at 0545 = 170 mLs. HV this shift = 75mLs. No nausea or vomiting noc shift. LS clear. HRR.
[2021-05-10] MEDS: HYDROMORPHONE 4 MG TABLET PO ×3 (08:00→21:23)
[2021-05-10] MEDS: hydrOXYzine pamoate 25 MG CAPSULE PO (08:00)
--- NOTE | 2021-05-10 08:04 | PT.IPTN ---
Current Diagnoses Unilateral primary osteoarthritis, right knee (05/09/21) Idiopathic aseptic necrosis of unspecified femur (05/09/21) Nondisplaced fracture of medial condyle of right femur, initial encounter for closed fracture (05/09/21) Surgery Performed Operation Date: 05/09/21 07:45 Actual Procedures p Total Knee Arthroplasty(Right) - Monica Barros MD Physical Therapy Treatment Note M2 PT-IP Current Condition Start: 05/09/21 14:25 Freq: NEEDED Status: Active Protocol: Document 05/09/21 14:25 OF (Rec: 05/09/21 14:37 OF [id number]) Physical Therapy Current Condition Current Condition Evaluation Date 05/09/21 Treatment Diagnosis Generalized weakness, L TKA Onset Date 05/09/21 Weight Bearing Status Weight Bearing Status Weight Bear as Tolerated M3 PT-IP Subjective Start: 05/09/21 14:25 Freq: NEEDED Status: Active Protocol: Document 05/10/21 07:42 SP (Rec: 05/10/21 08:37 SP [id number]) Subjective Physical Therapy Visit Type Type Treatment Note Visit Start Time 07:41 Visit Stop Time 08:04 Total Visit Minutes 23 Notes Vitals taken during tx: elevated supine: BP 162/80 HR 70 SaO2 99% on RA. Unable to get sitting at EOB Seated in chair post mobility: BP 168/120 HR 101 SaO2 mid 90s on RA. Number of CASINO INVESTIGATOR Visits 1 Physical Therapy Visit Comments Patient Comments Pt willing to work with therapy. Patient Goals Return home with caregiver. Therapy Pain Assessment Pain When Pain Assessed At Rest Location right knee Scale Used Moderate at rest, 8/10 medial R knee pain w/ mobility Description Aching,Sharp,Throbbing,With Movement Pain Behaviors Facial Grimacing,Holding Area, Restlessness Pain Management Techniques Apply Cold,Distraction, Modification of Treatment,Re- positioning,Timing of Activity with Medications Back Scale Used states has pain pre mobility no pain scale rating identified Description Aching,Spasm,With Movement Pain Management Techniques Re-positioning,Timing of Activity with Medications M4 PT-IP Mobility and Gait Start: 05/09/21 14:25 Freq: NEEDED Status: Active Protocol: Document 05/10/21 07:42 SP (Rec: 05/10/21 08:37 SP [id number]) PT-Bed Mobility Assessment Supine to Sit Supine to Sit Contact Guard Assistance,1 Person Assistance,Head of Bed Elevated,Bedrails Scooting Scooting to Edge of Bed Contact Guard Assistance PT-Transfer Assessment Sit to and From Stand Sit to and from Stand Minimal Assistance,Moderate Assistance,1 Person Assistance ,Use of Upper Extremities Equipment Transfer Assistive Device Gait Belt,Front Wheeled Walker Orthotic/Prosthetic Devices or Brace: No Transfers Transfer Destination Chair Transfer Technique Stand Step Pivot Transfer Ability Level of Assist Minimal Assistance,Moderate Assistance,1 Person Assistance ,Use of Upper Extremities Comments Mobility Comments Pt had CP donned on RLE when entered room. Pt reported R knee burning sensation and asked how long should keep CP on RLE, he said was provided by nursing. CASINO INVESTIGATOR reviewed postop exercises: AP, HS AROM with use of BUE assist. Completed elevated supine ( approx 60 deg) >sit using leg purse seiner on RLE, scoot to EOB CGA w/ use of bed rails (has similiar bed at home). Pt BUEs very shaky tremors stated because of elevated pain. Pt premedicated couple hrs prior to tx and requested nursing break through meds. Pt able to sit EOB unsupported sBA. SItS >stand Min- Mod Ax1 with cues for upright posture 2nd hand transtion to FWW. SPT bed> chair Min- Mod A x1 with abiltiy to WB through RLE. CUed pt for centering self and reaching back prior to sit Min A for slow descent into chair. Pt able to scoot back in chair self. Performed AP and LAQ with support of BUEs x5 reps. Pt seated upright in chair, assessed vitals with elevation in BP 168/120 with noted congested cough and continued shaky BUE and pain. Nurse entered room providing requested meds and further assessments. CASINO INVESTIGATOR recommended chair alarm w/ nurse stated will get for pt, CASINO INVESTIGATOR suggesting SPT usign FWW to BSC at this time until pain and BP more controlled for safety. Pt had call light and all needs in reach before left , nurse in room. CASINO INVESTIGATOR updated communication board. Gait Assessment Comments Gait Comments SPT only Min- Mod A using fWW. Stair Climbing Assessment Comments Stair Climbing Comments Not attempted stair mgt due to heavy BUE WB on FWW and unsteady RLE WB during SPT Min - Mod A x1. PT-Balance Assessment Sitting Balance and Reactions Static Sitting Balance Ability Normal Dynamic Sitting Balance Ability Fair Standing Balance and Reactions Static Standing Balance Ability Poor Dynamic Standing Balance Ability Poor Device Used FWW M5 PT-IP Objective Assessments Start: 05/09/21 14:25 Freq: NEEDED Status: Active Protocol: Document 05/09/21 14:25 OF (Rec: 05/09/21 14:37 OF [id number]) Orientation Orientation/Cognition Level of Alertness Lethargic Orientation Name,Age,Birthday,Month,Date, Year,Day of Week,Place, Situation Language Function Ability No Deficits Noted Gross Range of Motion Upper Extremity ROM Assessment Within Functional Limits Lower Extremity ROM Assessment Right Impaired Impairments Pt tolerates only 170-80 PROM. He does not initiate AROM. Strength Upper Extremity Strength Assessment Within Functional Limits Lower Extremity Strength Assessment Right Impaired Comments Strength Comments Pt demonstrate quad contraction, ankle plantarflexion/dorsiflexion, but does not generate movement Coordination Assessment Gross Coordination Gross Coordination WNL Assessment Finger to Nose Test Normal Performance Pronation/Supination Test Normal Performance Sensation Assessment Sensation Gross Sensation WNL Muscle Tone Muscle Tone WNL Yes M6 PT-IP Treatment Start: 05/09/21 14:25 Freq: NEEDED Status: Active Protocol: Document 05/10/21 07:42 SP (Rec: 05/10/21 08:37 SP [id number]) Physical Therapy Treatment Exercises Exercises Ankle Pumps,Gluteal Sets,Quad Sets,Heel Slides,Seated Knee Flexion/Extension Knee ROM Measurement 70 deg DARIO Longoria knee Education Education Provided Weight Bearing Status,Post-Op Packet,Safety M7 PT-IP Assessment and Plan Start: 05/09/21 14:25 Freq: NEEDED Status: Active Protocol: Document 05/10/21 07:42 SP (Rec: 05/10/21 08:37 SP [id number]) PT Summary Assessment and Plan Potential Rehabilitation Potential Good Status of Condition at Evaluation Stable Summary Impairments Pain,ROM,Strength,Balance, Transfers,Gait,Activity Tolerance Progress Towards Goals Progressing Toward Goals,Slow Progress due to Pain,Slow Progress due to Medical Issues ,Slow Progress due to Activity Tolerance Assessment Summary Pt shaky BUE and elevated pain an BP, premedicated. Bed mobility CGA HOB elevated, STS and SPT using FWW MIn- Mod A x1. Unable to progress gait and stair mgt. Pt requires pm tx for further assessment further distance gait, stair mgt to allow safe DC. Pt has caregiver at home. Recommending 24/7 home with assist available vs SNF, would benefit from further acute rehab. Will continue to assess progress. Goals Bed Mobility Goal Independent Transfer Goal Independent Gait Goal Standby Assistance Gait Distance 50 Other Goals ascend/descend 5 steps SBA to return home with caregiver Days to Meet Goals 3 Frequency of Treatment Frequency Of Treatment Twice a Day Treatment Plan Physical Therapy Treatment Plan Bed Mobility Training,Transfer Training,Gait Training, Therapeutic Exercise,Balance Retraining,Post Op Education, Discharge Planning, Neuromuscular Re-ed, Coordination Retraining Other Recommendations and Next Treatment Transfers, gait usign fWW vs Focus 4WW, stair mgt prior to DC. Recommendations To Nursing Amount of Assist Needed 1 Person Assist Discharge Recommendations PT Discharge Recommendations Home with 24/7 Assist Available,Home Health,SNF Rehab,Home vs SNF Other Discharge Recommendations SNF vs acute rehab vs home health depending upon future assessments due to limited participation with initial evaluation Transportation Needs at Discharge Private Vehicle
--- NOTE | 2021-05-10 08:43 | PM.PNPO.1 ---
Subjective Subjective Date Patient Seen: 05/10/21 Time Patient Seen: 08:43 Interval history: The patient is complaining of moderate right knee pain. He notes he had difficulty doing physical therapy yesterday due to his knee pain. Baseline, he has a chronic pain management patient. He typically receives fentanyl patches and Dilaudid p.o. from his primary care. He denies any fevers, chills, night sweats. No nausea or vomiting. He lives alone in the [facility] but has a caregiver that will be able to stay with him upon discharge. Of note he has also had some urinary retention. He had to be straight cathed and a bladder scan demonstrated only 170 cc of residual. He is on Flomax at baseline. Exam Vital Signs (past 8 hours): - 05/10/21 05:00 Temperature 97.6 F Pulse Rate 75 Respiratory Rate 18 Blood Pressure 162/99 H Pulse Oximetry 99 Oxygen Delivery Method CPAP Oxygen Flow Rate 0 Narrative Exam Narrative: 55-year-old male, resting in his chair, no acute distress. Bilateral lower extremity motor functions are intact. Sensation is grossly intact to light touch in his bilateral lower extremities. Both legs are warm and dry. Bilateral calves are soft, nontender palpation. Incision is clean, dry, intact. Objective Labs Result Diagrams: 05/10/21 05:35 Labs: Laboratory Results - last 24 hr 05/10/21 05:35 Hgb 10.8 L Hct 32.9 L PFSH Medical History Cirrhosis of liver CKD (chronic kidney disease) Compression fracture Depression Former smoker GERD (gastroesophageal reflux disease) Gout Hepatitis C (~2011) History of vertebral compression fracture Hypertension Immunosuppression Liver cancer Medical marijuana use GUILLE (obstructive sleep apnea) Osteoporosis PAC (premature atrial contraction) Pain management contract agreement Paroxysmal atrial fibrillation PVC (premature ventricular contraction) Thrombocytopenia Surgical History H/O right wrist surgery History of biliary duct stent placement (01/2013) History of open reduction and internal fixation (ORIF) procedure (09/22/20) History of removal of retained hardware (01/25/21) History of right hip replacement Hx of appendectomy (~1979) Hx of cholecystectomy (~2003) Hx of elbow surgery (~2003) Hx of elbow surgery (~2007) Hx of fusion of cervical spine Hx of hernia repair Hx of shoulder surgery (~2012) Hx of tonsillectomy (~1969) Liver transplant recipient (11/24/11) Presence of left artificial elbow joint Family History Mother Renal failure Father Diabetes mellitus Congestive heart failure Social History household members: caregiver and none Smoking Status: Former smoker alcohol intake: current Assessment & Plan Post-op Postoperative Procedures: Procedures Operation Date: 05/09/21 07:45 Actual Procedure Side Surgeon p Total Knee Arthroplasty Right Monica Barros MD Postoperative day: 1 Postoperative status: marginal pain control Postoperative status narrative: Progressing as expected status post right total knee arthroplasty Postoperative plan narrative: -aspirin 81 mg b.i.d. x6 weeks for DVT prophylaxis -continue with current baseline pain medications including fentanyl patches and Dilaudid p.o.. The patient has also received Oxy in the hospital. We discussed that he may have more difficult pain control due to his chronic narcotic use. -mobilize with PT -weight bearing as tolerated with front wheel walker -will increase his Flomax to 0.8 mg daily x3 days, then resume normal dosage of 0.4 mg daily -likely DC home tomorrow with his caregiver due to his chronic pain issues and being straight cathed over night. Quality VTE Deep Vein Thrombosis/Pulmonary Embolism Present on Admission: No
[2021-05-10] MEDS: PYRIDOXINE (VITAMIN B6) 50 MG TABLET 100 MG PO (09:35)
[2021-05-10] MEDS: ursodioL 300 MG CAPSULE PO ×2 (09:35→21:23)
[2021-05-10] MEDS: GABAPENTIN 300 MG CAPSULE PO ×2 (09:35→21:22)
[2021-05-10] MEDS: ACETAMINOPHEN 325 MG TABLET 650 MG PO ×3 (09:35→21:22)
[2021-05-10] MEDS: ASPIRIN EC 81 MG TABLET PO ×2 (09:35→21:23)
[2021-05-10] MEDS: NEPHRO-VITE RX TABLET 1 TAB PO (09:35)
[2021-05-10] MEDS: MYCOPHENOLATE MOFETIL 500 MG TABLET PO ×2 (09:35→21:22)
[2021-05-10] MEDS: RIFAXIMIN 550 MG TABLET PO ×2 (09:36→21:22)
[2021-05-10] MEDS: allopurinoL 100 MG TABLET PO (09:36)
[2021-05-10] MEDS: CYCLOSPORINE, MODIFIED 25 MG CAPSULE PO ×2 (09:36→21:22)
[2021-05-10] MEDS: METOPROLOL ER 25 MG TABLET PO (09:36)
[2021-05-10] MEDS: FUROSEMIDE 20 MG TABLET PO (09:36)
[2021-05-10] MEDS: DULOXETINE 20 MG CAPSULE PO (09:37)
[2021-05-10] MEDS: PANTOPRAZOLE DR 40 MG TABLET PO (09:37)
[2021-05-10] MEDS: DOCUSATE 100 MG CAPSULE PO ×2 (09:37→21:23)
[2021-05-10] MEDS: CYCLOBENZAPRINE 10 MG TABLET PO (09:44)
--- NOTE | 2021-05-10 12:18 | CM.DANOTE ---
Patient is a 55 yo male who was admitted on 05/09/21 for RTKA. Pt has REZA HO and BETH for insurance and his PCP is Kevin Porter. EMR was reviewed. Per Ortho MD, pt tolerated procedure well and to work with PT/OT more. Per PT, recommending home with 24/7 vs SNF pending progress. Pt was last admitted in Sep 2020 this year and was very difficult securing SNF rehab through his [facility] insurance and pt ended up having to go to [facility] in [place] for SNF and transport via Medicaid transport. Pt fully COVID vaccinated. SW met bedside with pt and explained role and pt resides in an RV at [facility], lives alone, Pt has JUSTICE caregiver Hank a female CG M-F to help with cleaning, laundry, meals if needed. He has a sister that lives in [place]. Pt states his JUSTICE is no longer through [facility] but his JUSTICE CM is Rachel. Pt got his CG Hank on the phone and SW confirmed that pt just had increase in JUSTICE hrs from 120-166 hours a month which will really help and Hank confirms that she plans to stay the first few days pt discharges the hospital for 24/7 assist and aware that SNF would be a challenge through his insurance and likely d/c back to RV with new HH referral as HH currently not working with pt. JUSTICE CG currently agreeable with this plan. SW provided HH Choice list and preference is [facility]. Pt confirms that he never wants a penitentiary again and SW discussed the need for him to work hard with the PT/OT team while in the hospital. Pt confirms he is still connected up with Walter Martin, [employer]phalt [facility], through [facility] and that Walter is aware he had planned surgery. SW requested CC Penny to fax initial referral to [facility] and SW called with new referral. F2F needed with Dr. Barros if determined pt safe for home with HH and JUSTICE CG. Plan: SW to follow for further PT/OT towards initial plan of home to RV with JUSTICE and [facility]. ZENA Montaño Discharge Planning/Care Management Advanced directive, confirm from FAMILY Start: 05/09/21 13:06 Freq: Q24H Status: Active Protocol: Document 05/09/21 13:06 JENNIFER (Rec: 05/09/21 14:04 JENNIFER [id number]) Advance Directive, confirm on record Time 14:03 Person contacted josé Copy received No CM Discharge Assessment Start: 05/10/21 12:13 Freq: Status: Active Protocol: Document 05/10/21 12:14 BF (Rec: 05/10/21 12:17 BF [id number]) Discharge Planning Assessment Assigned Family Living Educator ZENA Burns DPOA/Assigned Designee Name sister Leigh Contact Information [phone] Advance Directives? Yes Advance Directives on File No History Provided By Patient,Medical Record Has Patient been admitted in last 30 No days? Prior Living Arrangements RV Household Members caregiver,none Type of transporation used prior to Relies on Others admit Independent with ADL's No Is patient alert and oriented? Yes Needs Assistance With Meal Prep,Managing Medications ,Home Chores / Shopping Caregiver for Another No Comment JUSTICE GILBERT M-F Comment Stated that he used to have a cane, someone stole it. Patient/Family Preference Home with Home Health Barriers to Discharge Yes Comment Reza is difficult for SNF placement Discharge Plan Home with Home Health Community Services Physical Therapy,Occupational Therapy,Home Health Aid,Home Health Nurse Transportation Arrangement OFELIA Mckinney to transport at d/c Referrals Initiated Home Health Additional Comment [facility] Medicare Choice List Provided Yes SNF/HH Preference [facility] Whiteboard Updated in Patient Room with Yes name and ext. # of Family Living Educator Review Status In Process Please Provide Date Initial DC 05/10/21 Assessment Was Performed Next Review Type Continued Stay Review Pre-Anesthesia Assessment Start: 04/27/21 07:58 Freq: Status: Active Protocol: Document 04/27/21 07:58 CAB (Rec: 04/27/21 10:57 CAB [id number]) Pre-Anesthesia Assessment Patient Information Reviewed Via Phone Assessment Assessment Completed With Patient Diagnostic Results BMP/CMP,CBC Comment Labs @ 04/07/21 - COVID-pt needs to schedule Primary Care Provider Kevin Porter Seen Specialist in Last 12 Months Yes Specialist Seen Tank Car Reconditioner,Cushion Mat Maker, Orthopedist,Other Comment Transplant team @ Primary Language Croatian Preferred Language Croatian Acid Polymerization Operator Required No Height 172.72 cm Weight 92.079 kg Body Mass Index (BMI) 30.9 Hearing Ability Normal Visual Assist Glasses Dentition Type Teeth, Natural Present,Partial - Upper Barriers to Learning Memory Hx Anesthesia Reactions Yes: Premature awakening during hip replacement Hx Family Anesthesia Reaction Yes: mom had reaction to anesthesia in past Hx Malignant Hyperthermia No Hx Blood Transfusions Yes: Multiple r/t prior to liver transplant Hx Blood Transfusion Reaction Yes: Hepatitis from transfusion in 1981 Anesthesia Review Requested Yes: PAC courtesy re: Comorbidities 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 Field Operations No alcohol intake former Alcohol Intake Frequency Other: Hx Alcoholism Smoking Status Former smoker Tobacco type cigarettes how long ago did patient quit smoking Quit end of March 2021 Substance Use Type marijuana Comment Marijuana-advised not to smoke marijuana 24 hours prior Pain Present Pain Reported Musculoskeletal Symptoms Abnormal Gait,Back Pain, Difficulty Walking,Joint Pain, Limited Range of Motion,Neck Pain History of Falling (Recent or History of Yes ) Patient is completely paralyzed or No completely immobile Prosthesis or Orthotic Device Cane,Front Wheel Walker Mental Status Oriented to own ability Is patient on oxygen? No Does patient have LYMAN/SOB Yes: Occasional, thinks it's r /t anxiety Hx Sleep Apnea Yes: Not using CPAP due to current recall CPAP/BIPAP use prescribed not used Currently Taking a Beta Sincere Yes: Metoprolol Hx Chest Pain No Hx SOB Yes: Occasional, thinks it's r /t anxiety Hx Syncope or Dizziness Yes: Syncope, admit to [facility] 2019 Anti-Coagulant Therapy No Has a Hospice Manager Yes: Dr. Iyer-last saw over 3 years ago Cardiac Testing No Hx Pacemaker/ICD No Pacemaker Rep Required? No Cardiac Clearance Received Not Applicable Diet Type At Home Regular dysphagia No Gastrointestinal Symptoms Reflux Urinary Catheter Present No Hx Urinary Self Catheterization No Diabetes Yes: No medication, pt checks blood sugar twice a day Hx Drug Resistant Organism No Presence of External or Internal Medical Yes: Rt hip/wrist/ankle lt Devices shoulder/elbow Have you had any close contact with No someone diagnosed with COVID-19? Marital Status Lives With none Prior Living Arrangements RV Support System Caregiver,Friend(s) Does the Patient Have Assistance After Yes Surgery Patient Discharge Plan Description Return Home Comment Pt advised 2-3 day length of stay per surgeon Feels Safe in Current Environment Yes Been Physically Hurt or Threatened By a No Person in Current Environment Do you have thoughts of harming yourself None or others? Are you currently considering suicide? No Do you have a plan to hurt yourself or No Plan others? Do You Have Any Spiritual Beliefs That No May Affect Your HC Choices? Do You Have Any Cultural Practices That No May Affect Your HC Choices? Comment Yazidism Who Can We Speak to About Patient's Care Anyone except mother Jojo Wilks-he does not want her to get through Identifying Code for Release of Patient January Information Health Care Proxy/Next of Kin Leigh Wilks (sister) Health Care Proxy Emergency Contact Name José (caregiver) Emergency Contact Advance Directives? Yes: at [facility] Advance Directives on File No Power of Salt Plant Operator Yes Power of Salt Plant Operator Name Leigh Wilks (sister) Power of Salt Plant Operator PAC Instructions Diabetes instructions,Durable medical equipment,Medications to take/avoid,Nasal antibiotic ,No ETOH/petroleum product on skin DOS,NPO,Post-op transportation,Pre-surgical wash,Sensory aids,Sturdy shoes /comfortable clothes,Do not bring valuables and remove jewelry Stop Bang Assessment Do you snore loudly (louder than talking Yes or loud enough to be heard through closed doors) Do you often feel tired, fatigued or Yes sleepy during the daytime Has anyone ever observed you stop Yes breathing while sleeping? Do you have, or are you being treated Yes for, high blood pressure Is your BMI more than 35 kg/m2 No Age over 50 Yes Estimated neck circumference greater Yes than 40cm or 16in Gender male Yes Result Positive
--- NOTE | 2021-05-10 13:04 | PC.NURSE ---
Pt c/o pain, however he is drowsy and falls asleep so pain med held. In/out cath'd with 250 ml larissa urine output.
--- NOTE | 2021-05-10 14:41 | PC.NURSE ---
Per Bety TO, drain was discontinued after 1 session of PT. Drain pulled out; pt tolerated well. Covered site with sterile 4x4 and held pressure at site until it stopped oozing. Will continue to monitor.
--- NOTE | 2021-05-10 15:27 | PT.IPTN ---
Current Diagnoses Unilateral primary osteoarthritis, right knee (05/09/21) Idiopathic aseptic necrosis of unspecified femur (05/09/21) Nondisplaced fracture of medial condyle of right femur, initial encounter for closed fracture (05/09/21) Surgery Performed Operation Date: 05/09/21 07:45 Actual Procedures p Total Knee Arthroplasty(Right) - Monica Barros MD Physical Therapy Treatment Note M2 PT-IP Current Condition Start: 05/09/21 14:25 Freq: NEEDED Status: Active Protocol: Document 05/10/21 15:27 DLM (Rec: 05/10/21 16:35 [facility] [id number]) Physical Therapy Current Condition Current Condition Evaluation Date 05/09/21 Treatment Diagnosis right TKA, impaired strength and gait Onset Date 05/09/21 Weight Bearing Status Weight Bearing Status Weight Bear as Tolerated M3 PT-IP Subjective Start: 05/09/21 14:25 Freq: NEEDED Status: Active Protocol: Document 05/10/21 15:27 DLM (Rec: 05/10/21 16:35 [facility] [id number]) Subjective Physical Therapy Visit Type Type Treatment Note Visit Start Time 14:50 Visit Stop Time 15:27 Total Visit Minutes 37 Number of SLEEVE SETTER Visits 0 Physical Therapy Visit Comments Patient Comments He wants to walk in the fry this visit Patient Goals Return home with caregiver. Therapy Pain Assessment Pain When Pain Assessed After Treatment Pain Present Pain Present Pain Reported Location right knee Intensity 7 Scale Used Numeric (0 - 10) Description Aching,With Movement Pain Behaviors Facial Grimacing,Guarding Pain Management Techniques Elevation,Re-positioning, Timing of Activity with Medications M4 PT-IP Mobility and Gait Start: 05/09/21 14:25 Freq: NEEDED Status: Active Protocol: Document 05/10/21 15:27 DLM (Rec: 05/10/21 16:35 [facility] [id number]) PT-Bed Mobility Assessment Supine to Sit Supine to Sit Standby Assistance Sit to Supine Sit to Supine Standby Assistance Scooting Scooting to Edge of Bed Independent PT-Transfer Assessment Sit to and From Stand Sit to and from Stand Contact Guard Assistance,Use of Upper Extremities Equipment Transfer Assistive Device Gait Belt,Front Wheeled Walker Transfers Transfer Destination Bed,Chair Transfer Technique Stand Step Pivot Transfer Ability Level of Assist Contact Guard Assistance,Use of Upper Extremities Comments Mobility Comments Pt using left ld teacher to get right LE in/out of bed. Gait Assessment Gait Gait Assistance Required: Contact Guard Assist Distance (Feet) 65 Able to Maintain Weight Bearing Status Yes During Gait Assistive Devices Assistive Device Gait Belt,Front Wheeled Walker Gait Deviations General Gait Pattern Antalgic,Decreased Stride Length,Flexed Trunk,Step-to Gait Factors Limiting Gait Function Factors Limiting Gait Function Decreased Activity Tolerance, Decreased Strength,Limited Range of Motion,Pain,Poor Balance Comments Gait Comments He took a standing rest during gait but otherwise tolerated gait in the fry well with FWW . Pt is tremulous today which he reports is not baseline. He declined to stay up in the chair and wanted to go back to bed at the end of this visit. He only sat in the chair long enough to straighten his bed. Stair Climbing Assessment Comments Stair Climbing Comments has 3-5 steps to enter his RV with rail; plan to do training next visit as tolerated PT-Balance Assessment Sitting Balance and Reactions Static Sitting Balance Ability Normal Dynamic Sitting Balance Ability Good Standing Balance and Reactions Static Standing Balance Ability Good Dynamic Standing Balance Ability Fair Device Used FWW M5 PT-IP Objective Assessments Start: 05/09/21 14:25 Freq: NEEDED Status: Active Protocol: Document 05/09/21 14:25 OF (Rec: 05/09/21 14:37 OF [id number]) Orientation Orientation/Cognition Level of Alertness Lethargic Orientation Name,Age,Birthday,Month,Date, Year,Day of Week,Place, Situation Language Function Ability No Deficits Noted Gross Range of Motion Upper Extremity ROM Assessment Within Functional Limits Lower Extremity ROM Assessment Right Impaired Impairments Pt tolerates only 170-80 PROM. He does not initiate AROM. Strength Upper Extremity Strength Assessment Within Functional Limits Lower Extremity Strength Assessment Right Impaired Comments Strength Comments Pt demonstrate quad contraction, ankle plantarflexion/dorsiflexion, but does not generate movement Coordination Assessment Gross Coordination Gross Coordination WNL Assessment Finger to Nose Test Normal Performance Pronation/Supination Test Normal Performance Sensation Assessment Sensation Gross Sensation WNL Muscle Tone Muscle Tone WNL Yes M6 PT-IP Treatment Start: 05/09/21 14:25 Freq: NEEDED Status: Active Protocol: Document 05/10/21 15:27 DLM (Rec: 05/10/21 16:35 DLM [id number]) Physical Therapy Treatment Exercises Exercises Ankle Pumps,Quad Sets,Heel Slides,Passive Knee Extension Hang Knee ROM Measurement 90 flexion seated Education Education Provided Weight Bearing Status,Post-Op Packet,Safety Other Treatments Other Treatment Performed he declined to do straight leg raises or SAQ's due to pain and fatigue M7 PT-IP Assessment and Plan Start: 05/09/21 14:25 Freq: NEEDED Status: Active Protocol: Document 05/10/21 15:27 DLM (Rec: 05/10/21 16:35 DLM [id number]) PT Summary Assessment and Plan Summary Impairments Pain,ROM,Strength,Balance, Coordination,Bed Mobility, Transfers,Gait,Activity Tolerance Progress Towards Goals Slow Progress due to Activity Tolerance Assessment Summary Earnest showed good progress in his gait today and progressed to ambulate in the fry with FWW. He continues to compensate with his UE's on the FWW and is not ready to use a 4WW. He was motivated to increase his gait today. His tolerance for knee exercises is still low but he showed good effort. He continues to be tremulous today. Will work towards his goal of discharge home with extra caregiver assist. He will need home health physical therapy at discharge. Goals Bed Mobility Goal Independent Transfer Goal Independent Gait Goal Standby Assistance Gait Distance 50 Other Goals ascend/descend 5 steps SBA to return home with caregiver Days to Meet Goals 3 Frequency of Treatment Frequency Of Treatment Twice a Day Treatment Plan Physical Therapy Treatment Plan Bed Mobility Training,Transfer Training,Gait Training, Therapeutic Exercise,Balance Retraining,Post Op Education, Discharge Planning,Hot or Cold Pack,Neuromuscular Re-ed, Coordination Retraining Other Recommendations and Next Treatment training with FWW vs 4WW (he Focus has his 4WW in room) Recommendations To Nursing Amount of Assist Needed 1 Person Assist Discharge Recommendations PT Discharge Recommendations Home with 05/03 Assist Available,Home Health Other Discharge Recommendations needs to be able to do stairs before returning home Transportation Needs at Discharge Private Vehicle
[2021-05-10] MEDS: TAMSULOSIN 0.4 MG CAPSULE 0.8 MG PO (21:22)
[2021-05-10] MEDS: QUETIAPINE 25 MG TABLET PO (21:23)
[2021-05-11 03:00] VITALS: BP 124/97; PULSE 88; RESP 16; TEMP 36.1; O2SAT 97
[2021-05-11] MEDS: HYDROMORPHONE 4 MG TABLET PO (04:44)
[2021-05-11] MEDS: CYCLOBENZAPRINE 10 MG TABLET PO (06:13)
--- NOTE | 2021-05-11 07:33 | PC.NURSE ---
Did not void all shift, bladder scanned 194 cc noted in the bladder. Encouraged patient to drink water. Will cont. POC & monitor.
--- NOTE | 2021-05-11 08:07 | P.PN_ITS ---
Subjective Subjective Date Patient Seen: 05/11/21 Time Patient Seen: 08:07 Interval history: Patient reports moderate to severe pain levels. At this time he denies fever, chills, nausea, chest pain, shortness breath, or urinary retention. Patient states that he has yet to work with Physical therapy on stair [place]. Exam Vital Signs (past 8 hours): - 05/11/21 03:00 Temperature 96.9 F L Pulse Rate 88 Respiratory Rate 16 Blood Pressure 124/97 H Pulse Oximetry 97 Oxygen Delivery Method Room Air Oxygen Flow Rate 2 Narrative Exam Narrative: 55-year-old male postop day 2 status post right total knee arthroplasty. Patient is resting in room bed, is in no acute distress, is alert and oriented x3. Skin is warm and dry, skin surrounding the incision site is free of erythema, warmth, induration, or discharge. Aquacel dressing over the incision site is clean, dry, and intact. Good sensation appreciated throughout the bilateral lower extremities to light touch. Gross motor function intact throughout the bilateral lower extremities. DP pulses palpated bilaterally and are even. Calves are soft nontender, negative Homans sign. No other signs of DVT appreciated. Const General: cooperative, healthy appearing and comfortable Resp Effort & Inspection: normal respiratory effort and able to speak in complete sentences Skin General: no rashes or lesions noted Objective Labs Result Diagrams: 05/10/21 05:35 [facility] Medical History Cirrhosis of liver CKD (chronic kidney disease) Compression fracture Depression Former smoker GERD (gastroesophageal reflux disease) Gout Hepatitis C (~2011) History of vertebral compression fracture Hypertension Immunosuppression Liver cancer Medical marijuana use GUILLE (obstructive sleep apnea) Osteoporosis PAC (premature atrial contraction) Pain management contract agreement Paroxysmal atrial fibrillation PVC (premature ventricular contraction) Thrombocytopenia Surgical History H/O right wrist surgery History of biliary duct stent placement (01/2013) History of open reduction and internal fixation (ORIF) procedure (09/22/20) History of removal of retained hardware (01/25/21) History of right hip replacement Hx of appendectomy (~1979) Hx of cholecystectomy (~2003) Hx of elbow surgery (~2003) Hx of elbow surgery (~2007) Hx of fusion of cervical spine Hx of hernia repair Hx of shoulder surgery (~2012) Hx of tonsillectomy (~1969) Liver transplant recipient (11/24/11) Presence of left artificial elbow joint Family History Mother Renal failure Father Diabetes mellitus Congestive heart failure Social History household members: caregiver and none Smoking Status: Former smoker alcohol intake: current Assessment & Plan Post-op Postoperative Procedures: Procedures Operation Date: 05/09/21 07:45 Actual Procedure Side Surgeon p Total Knee Arthroplasty Right Monica Barros MD Postoperative day: 2 Postoperative status: marginal pain control Postoperative plan: ambulate Postoperative plan narrative: Patient is to continue working on ambulation with the assistance of a front wheeled walker with physical therapy. He is also to work on stair Trego with physical therapy. Current pain management regimen is to be continued. Aspirin 81 mg twice daily is to be continued for DVT prophylaxis along with the assistance of sequential compression devices. We will continue to monitor patient's progress with physical therapy. Patient lives in his van and will have a classified ad clerk to have assistance once he is discharged. Plan for discharge likely tomorrow. Quality VTE Deep Vein Thrombosis/Pulmonary Embolism Present on Admission: No
[2021-05-11 08:51] VITALS: BP 138/82; PULSE 88; RESP 17; TEMP 36.3; O2SAT 97
[2021-05-11] MEDS: ACETAMINOPHEN 325 MG TABLET 650 MG PO ×2 (09:43→16:49)
[2021-05-11] MEDS: DOCUSATE 100 MG CAPSULE PO (09:44)
[2021-05-11] MEDS: CYCLOSPORINE, MODIFIED 25 MG CAPSULE PO (09:44)
[2021-05-11] MEDS: ASPIRIN EC 81 MG TABLET PO (09:44)
[2021-05-11] MEDS: DULOXETINE 20 MG CAPSULE PO (09:44)
[2021-05-11] MEDS: fentaNYL 25 MCG/PATCH TOP (09:44)
[2021-05-11] MEDS: allopurinoL 100 MG TABLET PO (09:44)
[2021-05-11] MEDS: FUROSEMIDE 20 MG TABLET PO (09:45)
[2021-05-11] MEDS: GABAPENTIN 300 MG CAPSULE PO (09:45)
[2021-05-11] MEDS: METOPROLOL ER 25 MG TABLET PO (09:46)
[2021-05-11] MEDS: PANTOPRAZOLE DR 40 MG TABLET PO (09:46)
[2021-05-11] MEDS: PYRIDOXINE (VITAMIN B6) 50 MG TABLET 100 MG PO (09:46)
[2021-05-11] MEDS: RIFAXIMIN 550 MG TABLET PO (09:46)
[2021-05-11] MEDS: MYCOPHENOLATE MOFETIL 500 MG TABLET PO (09:46)
[2021-05-11] MEDS: NEPHRO-VITE RX TABLET 1 TAB PO (09:47)
[2021-05-11] MEDS: ursodioL 300 MG CAPSULE PO (09:47)
--- NOTE | 2021-05-11 11:30 | PC.NURSE ---
Pt has been unable to void urine since 2100 last night per report and documentation. Pt attempted to void independently into the urinal this morning and was unable. [facility] mls larissa colored urine out. Pt has been very sleepy today, mumbling and pointing at things while appearing to sleep. He has a tremor to BUE and mild intermittent jerking. He is arousable to voice. When awakened pt reports, I wasn't sleeping. He reports pain to his back and to his right surgical knee 03/22, however he falls asleep quickly. His 25mcg Fentanyl patch was replaced per order and applied to his left shoulder. Pt has been up with PT and ambulated around the [facility].
--- NOTE | 2021-05-11 11:42 | CM.DPC ---
DCP Cont: Discussed patient during team rounds. It is noted that plan for patient is to return to his RV with [facility]. Patient has JUSTICE caregiver named Hank, who is staying with patient for the first few days with 24/7 care, according to DITCH INSPECTOR notes. Discussed with PDinhT, who indicated that they will work on stair training with patient today. P: DCP to continue to follow. Plan is for home with [facility] when stable and after cleared with P.T. Lara Finley RN/Cushion Installer
--- NOTE | 2021-05-11 12:20 | PT.IPTN ---
Current Diagnoses Unilateral primary osteoarthritis, right knee (05/09/21) Idiopathic aseptic necrosis of unspecified femur (05/09/21) Nondisplaced fracture of medial condyle of right femur, initial encounter for closed fracture (05/09/21) Surgery Performed Operation Date: 05/09/21 07:45 Actual Procedures p Total Knee Arthroplasty(Right) - Monica Barros MD Physical Therapy Treatment Note M2 PT-IP Current Condition Start: 05/09/21 14:25 Freq: NEEDED Status: Active Protocol: Document 05/10/21 15:27 DLM (Rec: 05/10/21 16:35 DLM [id number]) Physical Therapy Current Condition Current Condition Evaluation Date 05/09/21 Treatment Diagnosis right TKA, impaired strength and gait Onset Date 05/09/21 Weight Bearing Status Weight Bearing Status Weight Bear as Tolerated M3 PT-IP Subjective Start: 05/09/21 14:25 Freq: NEEDED Status: Active Protocol: Document 05/11/21 11:30 SP (Rec: 05/11/21 14:23 SP [id number]) Subjective Physical Therapy Visit Type Type Treatment Note Visit Start Time 11:30 Visit Stop Time 12:20 Total Visit Minutes 50 Number of BROOM MAKER Visits 1 Physical Therapy Visit Comments Patient Comments Pt willing to work with therapy, progress hallway and stair mgt this visit. Patient Goals Return home with caregiver. Therapy Pain Assessment Pain When Pain Assessed During Mobility Pain Present Pain Present Pain Reported Location right knee Intensity 7 Scale Used Numeric (0 - 10) Pain Behaviors Facial Grimacing,Guarding Pain Management Techniques Distraction,Re-positioning, Timing of Activity with Medications M4 PT-IP Mobility and Gait Start: 05/09/21 14:25 Freq: NEEDED Status: Active Protocol: Document 05/11/21 11:30 SP (Rec: 05/11/21 14:23 SP [id number]) PT-Bed Mobility Assessment Supine to Sit Supine to Sit Standby Assistance Scooting Scooting to Edge of Bed Independent PT-Transfer Assessment Sit to and From Stand Sit to and from Stand Contact Guard Assistance,Use of Upper Extremities Equipment Transfer Assistive Device Gait Belt,Front Wheeled Walker ,4 Wheeled Walker Orthotic/Prosthetic Devices or Brace: No Transfers Transfer Destination Bed,Chair Transfer Technique pt ambulated using FWW, 4WW Transfer Ability Level of Assist Contact Guard Assistance, Minimal Assistance,1 Person Assistance,Use of Upper Extremities Comments Mobility Comments Pt supine in bed when arrived, completed LE exercises pre mobiltiy approx 90 deg R knee flexion. Pt able to reposition RLE in/ out bed itself without UE or leg county extension agent assist. sup>sit, scoot sBA. SIt<>Stand CGA with cues for push from bed. Pt able to ambulate around room initial FWW with moderate BUE WB on FWW, SPT in front chair cued reach back and slow descent into sit in chair CGA. Noted still BUE tremorous like. BROOM MAKER educated proper 4WW brake mgt with occasional cuing for carryover stationary standing and pre/post transfers for safety. Pt able to ambulate into hallway CG- Min A using 4WW initially cued for keep BLE inside back wheels during turns and brake mgt static stand for safety repositioning mask/ pre stair mgt. Pt ambulated room>stairs w/c follow for safety due to decreased strength and noted BUE/ LE unsteadiness, completed stairs, seated rest in w/c between set of stairs due to decrease activity tolerance and + SOB, finished gait around nursing station and back to room approx 230 ft total CG- Min A due to unsteady and noted 4WW shift driving R and L with each step states is his normal. Pt requested returned to bed when in room noted proper brake mgt, stand>sit CGA, sit > supine SBA. BROOM MAKER requested pm tx to complete caregiver training w/ his caregiver Hank at approx 130. Will continue to assess progress. Gait Assessment Gait Gait Assistance Required: Contact Guard Assist,Minimum Assistance,1 Person Assist Distance (Feet) 230 Able to Maintain Weight Bearing Status Yes During Gait Assistive Devices Assistive Device Gait Belt,Front Wheeled Walker ,4 Wheeled Walker Orthotic/Prosthetic Devices or Brace: No Gait Deviations General Gait Pattern Antalgic,Decreased Stride Length,Flexed Trunk,Wide Based Gait Factors Limiting Gait Function Factors Limiting Gait Function Decreased Activity Tolerance, Decreased Strength,Limited Range of Motion,Pain,Poor Balance,Poor Safety Awareness, Respiratory Distress Comments Gait Comments WBOS, cues for BLE within 4WW during turns in room around bed, ed safety 4WW pacing and brake mgt. See mobility comments for details. Stair Climbing Assessment Evaluation Level of Assist On Stairs Contact Guard Assistance,1 Person Assistance Devices Stair Climbing Assistive Devices Left Railing,Right Railing Technique/Endurance Stair Climbing Direction Ascend and Descend Stair Climbing Technique Step to Step Number of Steps Climbed 3 Stair Climbing Set # Repetitions (reps) 2 Comments Stair Climbing Comments Completed 6 stairs step to patterning with max cues for proper LE sequencing, descended LLE last step and increase R knee pain, required seated rest on w/c between sets and elevated breath rate cued slow breath, improved. Completed 2nd set stairs with repeated cues lead RLE descend with carryover due to cuing. PT-Balance Assessment Sitting Balance and Reactions Static Sitting Balance Ability Normal Dynamic Sitting Balance Ability Good Standing Balance and Reactions Static Standing Balance Ability Fair Dynamic Standing Balance Ability Fair Device Used 4WW M5 PT-IP Objective Assessments Start: 05/09/21 14:25 Freq: NEEDED Status: Active Protocol: Document 05/09/21 14:25 OF (Rec: 05/09/21 14:37 OF [id number]) Orientation Orientation/Cognition Level of Alertness Lethargic Orientation Name,Age,Birthday,Month,Date, Year,Day of Week,Place, Situation Language Function Ability No Deficits Noted Gross Range of Motion Upper Extremity ROM Assessment Within Functional Limits Lower Extremity ROM Assessment Right Impaired Impairments Pt tolerates only 170-80 PROM. He does not initiate AROM. Strength Upper Extremity Strength Assessment Within Functional Limits Lower Extremity Strength Assessment Right Impaired Comments Strength Comments Pt demonstrate quad contraction, ankle plantarflexion/dorsiflexion, but does not generate movement Coordination Assessment Gross Coordination Gross Coordination WNL Assessment Finger to Nose Test Normal Performance Pronation/Supination Test Normal Performance Sensation Assessment Sensation Gross Sensation WNL Muscle Tone Muscle Tone WNL Yes M6 PT-IP Treatment Start: 05/09/21 14:25 Freq: NEEDED Status: Active Protocol: Document 05/11/21 11:30 SP (Rec: 05/11/21 14:23 SP [id number]) Physical Therapy Treatment Exercises Exercises Ankle Pumps,Quad Sets,Heel Slides,Seated Knee Flexion/ Extension Knee ROM Measurement 90 flexion seated Education Education Provided Weight Bearing Status,Post-Op Packet,Safety M7 PT-IP Assessment and Plan Start: 05/09/21 14:25 Freq: NEEDED Status: Active Protocol: Document 05/11/21 11:30 SP (Rec: 05/11/21 14:23 SP [id number]) PT Summary Assessment and Plan Potential Rehabilitation Potential Good Status of Condition at Evaluation Stable Summary Impairments Pain,ROM,Strength,Balance, Coordination,Bed Mobility, Transfers,Gait,Activity Tolerance Progress Towards Goals Progressing Toward Goals,Slow Progress due to Pain,Slow Progress due to Activity Tolerance Assessment Summary Earnest showed good progress in his gait today and progressed to ambulate into fry with 4WW , unsteady CGA- Min A still signs of UE tremorous w/ Min WB on 4WW, completed stair mgt , max cues for LE sequencing. He continues to compensate with his UE's on the 4WW. He was motivated to increase his gait today. He continues to be tremulous today. Will work towards his goal of discharge home with extra caregiver assist. He will need home health physical therapy vs outpt therapy at discharge. Requesting pm tx for caregiver training with his caregiver at 1330. Goals Bed Mobility Goal Independent Transfer Goal Independent Gait Goal Standby Assistance Gait Distance 50 Other Goals ascend/descend 5 steps SBA to return home with caregiver Days to Meet Goals 3 Frequency of Treatment Frequency Of Treatment Twice a Day Treatment Plan Physical Therapy Treatment Plan Bed Mobility Training,Transfer Training,Gait Training, Therapeutic Exercise,Balance Retraining,Post Op Education, Discharge Planning,Hot or Cold Pack,Neuromuscular Re-ed, Coordination Retraining Other Recommendations and Next Treatment training with 4WW, caregiver Focus training at 1330 include stair mgt. Recommendations To Nursing Amount of Assist Needed 1 Person Assist Discharge Recommendations PT Discharge Recommendations Home with / Assist Available,Home Health Transportation Needs at Discharge Private Vehicle
[2021-05-11 12:30] VITALS: BP 107/82; PULSE 83; RESP 16; TEMP 36.4; O2SAT 95
--- NOTE | 2021-05-11 13:44 | PT.IPTN ---
Current Diagnoses Unilateral primary osteoarthritis, right knee (05/09/21) Idiopathic aseptic necrosis of unspecified femur (05/09/21) Nondisplaced fracture of medial condyle of right femur, initial encounter for closed fracture (05/09/21) Surgery Performed Operation Date: 05/09/21 07:45 Actual Procedures p Total Knee Arthroplasty(Right) - Monica Barros MD Physical Therapy Treatment Note M2 PT-IP Current Condition Start: 05/09/21 14:25 Freq: NEEDED Status: Active Protocol: Document 05/10/21 15:27 DLM (Rec: 05/10/21 16:35 DLM [id number]) Physical Therapy Current Condition Current Condition Evaluation Date 05/09/21 Treatment Diagnosis right TKA, impaired strength and gait Onset Date 05/09/21 Weight Bearing Status Weight Bearing Status Weight Bear as Tolerated M3 PT-IP Subjective Start: 05/09/21 14:25 Freq: NEEDED Status: Active Protocol: Document 05/11/21 13:28 SP (Rec: 05/11/21 15:38 SP [id number]) Subjective Physical Therapy Visit Type Type Treatment Note Visit Start Time 13:28 Visit Stop Time 13:44 Total Visit Minutes 16 Notes Caregiver Hank completed caregiver training and provided physical assist throughout tx. Number of DEALER ACCOUNT MANAGER Visits 2 Physical Therapy Visit Comments Patient Comments Pt willing to work with therapy. Patient Goals Return home with caregiver. Therapy Pain Assessment Pain When Pain Assessed During Mobility Pain Present Pain Present Pain Reported Location right knee Intensity 5 Scale Used Numeric (0 - 10) Description With Movement Pain Behaviors Facial Grimacing Pain Management Techniques Distraction,Re-positioning, Timing of Activity with Medications M4 PT-IP Mobility and Gait Start: 05/09/21 14:25 Freq: NEEDED Status: Active Protocol: Document 05/11/21 13:28 SP (Rec: 05/11/21 15:38 SP [id number]) PT-Bed Mobility Assessment Supine to Sit Supine to Sit Standby Assistance Sit to Supine Sit to Supine Standby Assistance Scooting Scooting to Edge of Bed Independent Scooting Up and Down in Bed Standby Assistance PT-Transfer Assessment Sit to and From Stand Sit to and from Stand Standby Assistance,Contact Guard Assistance,Use of Upper Extremities Equipment Transfer Assistive Device Gait Belt,4 Wheeled Walker Orthotic/Prosthetic Devices or Brace: No Transfers Transfer Destination Bed Transfer Technique pt ambulated using 4WW Transfer Ability Level of Assist Contact Guard Assistance,Use of Upper Extremities Comments Mobility Comments Pt completed supine>sit and scoot to EOB using BUE and SBA RLE repositioning itself in/ out bed. Caregiver Hank donned gait belt, Sit<>stand from EOB with proper 4WW brake mgt. Pt ambulated using 4WW step over step gait improved stride , foot clearance, heel toe with normalizing ERIC and decreased UE WB on 4WW this tx . Pt completed stair mgt x2 sets occasional cue for leading RLE descending, CGA given by caregiver. Pt finished gait around nursing station approx 230 ft total back to room CG> SBA. Pt requested getting back into bed SPT at EOB with proper brake mgt and reaching back for safety. Stand>sit> supine and scoot up EOB with use of bed rail SBA. Pt states caregiver will be staying with him for few days until feels better and wanting to get set up with outpt therapy vs HHPT. Gait Assessment Gait Gait Assistance Required: Standby Assistance,Contact Guard Assist Distance (Feet) 230 Able to Maintain Weight Bearing Status Yes During Gait Assistive Devices Assistive Device Gait Belt,4 Wheeled Walker Orthotic/Prosthetic Devices or Brace: No Gait Deviations General Gait Pattern Antalgic,Decreased Stride Length Factors Limiting Gait Function Factors Limiting Gait Function Decreased Activity Tolerance, Decreased Strength,Limited Range of Motion,Pain Comments Gait Comments Pt required SBA for bed mob, CG- SBA during mobiltiy with 4WW, CGA during stair mgt with occasional cues for leadign RLE descending. Pt is ok to return home with caregiver Hank to assist him 05/03 assist available when medically cleared. Pt requested outpt therapy vs HHPT end of today. Stair Climbing Assessment Evaluation Level of Assist On Stairs Contact Guard Assistance,1 Person Assistance Devices Stair Climbing Assistive Devices Left Railing,Right Railing Technique/Endurance Stair Climbing Direction Ascend and Descend Stair Climbing Technique Step to Step Number of Steps Climbed 3 Stair Climbing Set # Repetitions (reps) 2 Comments Stair Climbing Comments see mobility comments for details. PT-Balance Assessment Sitting Balance and Reactions Static Sitting Balance Ability Normal Dynamic Sitting Balance Ability Good Standing Balance and Reactions Static Standing Balance Ability Good Dynamic Standing Balance Ability Fair Device Used 4WW M5 PT-IP Objective Assessments Start: 05/09/21 14:25 Freq: NEEDED Status: Active Protocol: Document 05/09/21 14:25 OF (Rec: 05/09/21 14:37 OF [id number]) Orientation Orientation/Cognition Level of Alertness Lethargic Orientation Name,Age,Birthday,Month,Date, Year,Day of Week,Place, Situation Language Function Ability No Deficits Noted Gross Range of Motion Upper Extremity ROM Assessment Within Functional Limits Lower Extremity ROM Assessment Right Impaired Impairments Pt tolerates only 170-80 PROM. He does not initiate AROM. Strength Upper Extremity Strength Assessment Within Functional Limits Lower Extremity Strength Assessment Right Impaired Comments Strength Comments Pt demonstrate quad contraction, ankle plantarflexion/dorsiflexion, but does not generate movement Coordination Assessment Gross Coordination Gross Coordination WNL Assessment Finger to Nose Test Normal Performance Pronation/Supination Test Normal Performance Sensation Assessment Sensation Gross Sensation WNL Muscle Tone Muscle Tone WNL Yes M6 PT-IP Treatment Start: 05/09/21 14:25 Freq: NEEDED Status: Active Protocol: Document 05/11/21 13:28 SP (Rec: 05/11/21 15:38 SP [id number]) Physical Therapy Treatment Exercises Exercises Heel Slides,Seated Knee Flexion/Extension Knee ROM Measurement 90 deg flexion R knee Education Education Provided Weight Bearing Status,Post-Op Packet,Safety M7 PT-IP Assessment and Plan Start: 05/09/21 14:25 Freq: NEEDED Status: Active Protocol: Document 05/11/21 13:28 SP (Rec: 05/11/21 15:38 SP [id number]) PT Summary Assessment and Plan Potential Rehabilitation Potential Good Status of Condition at Evaluation Stable Summary Impairments Pain,ROM,Strength,Balance, Coordination,Bed Mobility, Transfers,Gait,Activity Tolerance Progress Towards Goals Progressing Toward Goals,Slow Progress due to Pain,Slow Progress due to Activity Tolerance Assessment Summary Earnest showed good progress in his gait today and progressed to ambulate into fry with 4WW CG- SBA, decreased UE WB on 4WW and normalizing ERIC with foot clearance and stride, completed stair mgt with caregiver, CGA. Did not observe tremulous in UEs this tx. Pt requesting outpt therapy vs HHPT, states his child day care teacher can assist him with rides. Pt is ok to return home with caregiver Hank when medically cleared, 05/03 assist available, states will be providing him. Goals Bed Mobility Goal Independent Transfer Goal Independent Gait Goal Standby Assistance Gait Distance 50 Other Goals ascend/descend 5 steps SBA to return home with caregiver Days to Meet Goals 3 Frequency of Treatment Frequency Of Treatment Twice a Day Treatment Plan Physical Therapy Treatment Plan Bed Mobility Training,Transfer Training,Gait Training, Therapeutic Exercise,Balance Retraining,Post Op Education, Discharge Planning,Hot or Cold Pack,Neuromuscular Re-ed, Coordination Retraining Other Recommendations and Next Treatment LE ex, gait distance 4WW, Focus balance activities. Recommendations To Nursing Amount of Assist Needed Standby Assistance,1 Person Assist Discharge Recommendations PT Discharge Recommendations Home with 05/03 Assist Available,Home Health, Outpatient PT Transportation Needs at Discharge Private Vehicle
[2021-05-11 15:15] VITALS: BP 142/94; PULSE 81; RESP 18; TEMP 36.6; O2SAT 97
--- NOTE | 2021-05-11 15:40 | PM.DS.1 ---
History of Present Illness History of Present Illness Date Patient Seen: 05/11/21 Time Patient Seen: 15:41 Chief complaint: OPB Narrative: Refer to previous HPI. Discharge Providers Provider Date of admission: 05/09/21 06:41 Discharge Date: 05/11/21 Primary care physician: Kevin Porter MD Consults: 05/09/21 06:44 Consult to Anesthesiology Routine Comment: Consulting Provider: Anesthesiologist Reason for consultation: Regional block for post operative pain control 05/09/21 12:20 Consult to Discharge Planning Routine Comment: Consult to Physical Therapy Evaluate & Treat Comment: Physician Instructions: postop TKA protocol Consult to Respiratory Therapy Evaluate & Treat Comment: Physician Instructions: Evaluate and treat Discharge provider: Kirk Dominguez PA-C Summary Hospital Course Discharge Diagnosis: Right knee osteoarthritis Status post right total knee arthroplasty Hospital Course: Patient was admitted to the hospital following the above-listed procedure for the above-listed diagnosis. Following the procedure the patient has been convalescing appropriately in his pain has been managed with his current pain management regimen. Throughout his time hospital the patient has denied fever, chills, nausea, chest pain, shortness of breath, or urinary retention. Patient has been administered aspirin 81 mg twice daily for DVT prophylaxis along with the assistance of sequential compression devices. Following the procedure the patient has had an Aquacel dressing over his incision site, it has remained clean, dry, and intact following surgery. Patient has successfully worked on ambulation with the assistance of a front wheeled walker and stair Nuckolls with physical therapy. He has remained weight-bearing as tolerated, in standard total knee replacement protocol. Status at Discharge Cognitive/behavioral status at discharge: oriented Functional status at discharge: uses cane/walker Overall status at discharge: patient is progressing back to baseline Exam Vital Signs (past 8 hours): - 05/11/21 08:51 05/11/21 12:30 Temperature 97.4 F L 97.6 F Pulse Rate 88 83 Respiratory Rate 17 16 Blood Pressure 138/82 107/82 Pulse Oximetry 97 95 Oxygen Delivery Method Room Air Oxygen Flow Rate 0 Narrative Exam Narrative: 55-year-old male postop day 2 status post right total knee arthroplasty.? Patient is resting in room bed, is in no acute distress, is alert and oriented x3.? Skin is warm and dry, skin surrounding the incision site is free of erythema, warmth, induration, or discharge.? Aquacel dressing over the incision site is clean, dry, and intact.? Good sensation appreciated throughout the bilateral lower extremities to light touch.? Gross motor function intact throughout the bilateral lower extremities.? DP pulses palpated bilaterally and are even.? Calves are soft nontender, negative Homans sign.? No other signs of DVT appreciated. Const General: cooperative, healthy appearing and comfortable Resp Effort & Inspection: normal respiratory effort and able to speak in complete sentences Skin General: no rashes or lesions noted Objective Labs Result Diagrams: 05/10/21 05:35 [facility] Medical History Cirrhosis of liver CKD (chronic kidney disease) Compression fracture Depression Former smoker GERD (gastroesophageal reflux disease) Gout Hepatitis C (~2011) History of vertebral compression fracture Hypertension Immunosuppression Liver cancer Medical marijuana use GUILLE (obstructive sleep apnea) Osteoporosis PAC (premature atrial contraction) Pain management contract agreement Paroxysmal atrial fibrillation PVC (premature ventricular contraction) Thrombocytopenia Surgical History H/O right wrist surgery History of biliary duct stent placement (01/2013) History of open reduction and internal fixation (ORIF) procedure (09/22/20) History of removal of retained hardware (01/25/21) History of right hip replacement Hx of appendectomy (~1979) Hx of cholecystectomy (~2003) Hx of elbow surgery (~2003) Hx of elbow surgery (~2007) Hx of fusion of cervical spine Hx of hernia repair Hx of shoulder surgery (~2012) Hx of tonsillectomy (~1969) Liver transplant recipient (11/24/11) Presence of left artificial elbow joint Family History Mother Renal failure Father Diabetes mellitus Congestive heart failure Social History household members: caregiver and none Smoking Status: Former smoker alcohol intake: current Discharge Assessment & Plan Assessment and Plan Assessment: Patient is doing well and is stable. Plan of Treatment: Patient is to continue physical therapy in the outpatient setting following discharge from hospital. First postoperative visit in Orthopedic clinic is scheduled for 2 weeks following discharge. Current pain management regimen is to be continued. Aspirin 81 mg twice daily is to be continued for 6 weeks for DVT prophylaxis. Aquacel dressing over the incision site is to remain clean, dry, and intact for 2 weeks. Contact clinic if the dressing becomes damaged or soiled. Patient is to remain weight-bearing as tolerated with the assistance of a front wheeled walker, standard total knee replacement protocol. Patient is to contact clinic with any concerns or questions. Any signs of increased redness, swelling, warmth, pain, or discharge from around the incision site should be reported to the clinic. Discharge Plan Discharge Plan Patient Disposition: Home Provider Discharge Comment: Patient cleared for discharge pending PT clearance. Discharge orders & Medications Prescriptions: New acetaminophen 325 mg Tablet 650 mg PO TID Qty: 90 RF: 0 aspirin 81 mg Tablet,Delayed Release (Dr/Ec) 81 mg PO BID Qty: 90 RF: 0 hydroxyzine pamoate 25 mg Capsule 25 mg PO BEDTIME PRN (Reason: Itching) Qty: 60 RF: 0 oxycodone 10 mg Tablet 10 mg PO Q3HR PRN (Reason: Pain, Severe (7-10)) Qty: 60 RF: 0 Continued furosemide 20 mg tablet 20 mg PO DAILY RF: 0 tamsulosin 0.4 mg Capsule 0.4 mg PO BEDTIME RF: 0 quetiapine [Seroquel] 25 mg Tablet 25 mg PO BEDTIME RF: 0 cyclosporine modified 25 mg Capsule 25 mg PO BID RF: 0 ondansetron HCl [Zofran] 4 mg Tablet 4 mg PO Q8H PRN (Reason: Nausea) RF: 0 allopurinol 100 mg Tablet 100 mg PO DAILY RF: 0 mycophenolate mofetil [CellCept] 500 mg Tablet 500 mg PO BID RF: 0 lidocaine [Lidoderm] 5 % Adhesive Patch,Medicated 1 patch TOPICAL DAILY RF: 0 ursodiol 300 mg Capsule 300 mg PO BID RF: 0 gabapentin 300 mg Capsule 300 mg PO BID RF: 0 Kellie-Ramila 0.8 mg Tablet 1 tab PO DAILY RF: 0 pyridoxine (vitamin B6) 100 mg Tablet 100 mg PO DAILY RF: 0 fentanyl [Duragesic] 25 mcg/hr Patch 72 Hour See Rx Instructions .ROUTE .COMPLEX RF: 0 hydroxyzine pamoate [Vistaril] 25 mg Capsule 25 mg PO BEDTIME PRN (Reason: Itching) RF: 0 duloxetine [Cymbalta] 20 mg Capsule,Delayed Release(Dr/Ec) 20 mg PO DAILY RF: 0 ondansetron 4 mg tablet,disintegrating 4 mg PO TID-QID PRN (Reason: nausea and vomiting) Qty: 10 RF: 0 pantoprazole [Protonix] 40 mg tablet,delayed release (DR/EC) 40 mg PO DAILY Qty: 30 RF: 0 Xifaxan 550 mg Tablet 550 mg PO BID RF: 0 hydromorphone 4 mg tablet 4 mg PO Q6H PRN (Reason: pain) Qty: 30 RF: 0 cyclobenzaprine 10 mg Tablet 10 mg PO Q8H PRN (Reason: Spasms) Qty: 0 RF: 0 acetaminophen [Tylenol] 325 mg Capsule 650 mg PO Q4-6H PRN (Reason: Pain, Moderate) Qty: 0 RF: 0 Narcan 4 mg/actuation [place],Non-Aerosol 1 spray INTRANASAL PER PKG DIR 30 Days Qty: 1 RF: 0 metoprolol succinate 25 mg tablet extended release 24 hr 25 mg PO DAILY RF: 0 Follow up/Referrals: Kevin Porter MD [Primary Care Provider] - Diet/Activity/Treatments Diet: Diet as Tolerated and Regular Activity: Weight-bearing as tolerated with the assistance of front wheeled walker. Standard total knee replacement protocol. Skin/Wound/Dressing Care Report to your healthcare provider any signs of infection, such as:: chills, fever, night sweats, unusual drainage and unusual redness Dressing: Aquacel dressing over the incision site is to remain clean, dry, and intact for 2 weeks. Contact clinic if the dressing becomes damaged or soiled. Other wound treatment: Avoid placing topical ointments over the incision site or soaking the incision site until completely healed. Visit Report/Discharge Packet Instructions: DI for Knee Replacement, DI for Prescription Opioid Use Stand Alone Forms: Surgery Discharge Discharge Data Primary Care Provider: Kevin Porter Attending Provider: Monica Barros VTE Deep Vein Thrombosis/Pulmonary Embolism Present on Admission: No
--- NOTE | 2021-05-11 16:02 | CM.DPC ---
DCP Cont: Checked in with patient, caregiver, JJ was in the room. Patient indicated, he is going home this pm as long as he can urinate. Confirmed with him that he wants [facility]. Called Imani at [facility] and let her know that patient should discharge this pm. Faxed over face to face, face sheet, orders, H&P and P.T. notes. Confirmed with her that they do accept Reza. P: Patient is discharging home tonight with [facility] as long as he can urinate. Lara Finley RN/Hand Tool Lapper
[2021-05-11] MEDS: OXYCODONE IR 10 MG TABLET PO (16:50)
--- NOTE | 2021-05-11 17:13 | PC.NURSE ---
Patient received d/c orders at begining of GUERRERO shift. Pain has been tolerable, patient was medicated prior to d/c for the ride home. Patient's caregiver at bedside. Patient teaching done by Nurse Cunningham at bedside with both parties. Patient states understanding and all questions and concerns were addressed. Patient was escorted down to personal vehicle via WC and personal walker was walked down by aid. Patient left in stable condition, VSS, belongings in hand and taken down by healthcare technician.
== END 2021-05-11 17:10 | disposition home or self-care (01) ==
LOC: OR 06:41 → AC 06:43
PROVIDERS: Admitting Provider Orthopaedic Surgery; Family Provider Internal Medicine; PCP Internal Medicine; Referring Provider Orthopaedic Surgery; Visit Provider Orthopaedic Surgery
PROC: 0SRC0JZ Replacement of Right Knee Joint with Synthetic Substitute, Open Approach (ICD-10-PCS; CPT 27447; principal; 2021-05-09 07:45)
DX: M17.11 Unilateral primary osteoarthritis, right knee (principal); M87.051 Idiopathic aseptic necrosis of right femur; I10 Essential (primary) hypertension; I12.9 Hypertensive chronic kidney disease with stage 1 through stage 4 chronic kidney disease, or unspecified chronic kidney disease; N18.9 Chronic kidney disease, unspecified; D69.6 Thrombocytopenia, unspecified
CPT/HCPCS: 27447; 73560; 85014; 85018; 94660; 94760; 94762; 97110; 97116; 97161; 97530; C1776; G0378; J0171; J0690; J1170; J2250; J2274; J2704; J3010; J7515

== ENCOUNTER 2021-06-24 10:30 | Outpatient (RCR) | payer OTHER, MEDICAID, SELFPAY ==
[2021-05-09 12:47] VITALS: BMI 32.6
--- NOTE | 2021-06-14 12:41 | PT.OPPOC ---
Physical, Occupational & Speech Therapy At [facility] Current Diagnoses Other unilateral secondary osteoarthritis of knee (06/14/21) Visit Care Team Role Provider Type Kevin Porter MD Family Provider Non-Staff Primary Care Provider Specialty: Internal Medicine Address: [address] [place] [address], [id number] Email: Monica Barros MD Attending Provider Physician Referring Provider Specialty: Orthopedic Surgery Address: [address] [place] [address], [id number] Email: [email or web address] Plan Of Care PT-OP-T Assessment and Plan Start: 06/08/21 15:34 Freq: Status: Active Protocol: Document 06/14/21 09:44 MB (Rec: 06/14/21 10:25 MB [id number]) Physical Therapy Assessment Rehab Potential Rehabilitation Potential Good Evaluation Complexity Number of Personal Factors/Comorbidities 3 or More Number of Body Systems Impaired 3 Clinical Presentation at Evaluation Evolving Impairments Impairments Activity Tolerance,Balance, Edema,Functional Activities, Functional Mobility,Gait, Integument,Pain,Posture,ROM, Soft Tissue Mobility,Strength Other Impairments Personal factors include history of falls and orthostatic hypotension and pt doesn't feel safe driving himself yet. Body systems affected include neuromuscular , musculoskeletal, cardiac and integumentary. His clinical presentation is evolving. Other Concerns Fall Risk Yes Goals 4 Pipe Inspector Goal (LTG) Pt will perform progressive HEP with I including flexibility, ROM, strengthening, sit to stands, balance and gait exercises to improve range, strength and gait by 08/12/21. LTG Duration 8 weeks 3 Pipe Inspector Goal (LTG) Pt will perform 10 reps sit to stand without UE support in 30 sec to improve functional ROM and transfers by 08/12/21. LTG Duration 8 weeks 2 Pipe Inspector Goal (LTG) Pt will perform WNLs on a standardized balance test to decrease fall risk by 08/12/21 . LTG Duration 8 weeks 1 Jail Goal (LTG) Pt will gait train at least 1200 feet without AD in 6 minutes to improve community ambulation by 08/12/21. LTG Duration 8 weeks Assessment Summary Assessment Pt presents for PT evaluation after right knee TKR 05/09/21. He presents with cane in his right hand and PT ed that he should use in left hand or not use at all. He does not really need the cane and his gait is better than it was this summer when he saw this PT post-op B ankle fusions. He con't with limited ankle ROM but he is getting heel strike and push-off with gait and improved B knee flexion. He does present with right knee extension limitations, weakness and decreased balance . He will benefit from PT to improve range, strength, balance and gait. Barriers include he is not currently driving, history of falls and orthostasis. Physical Therapy Plan Frequency and Duration Frequency of Treatment 2x/Week Duration of Treatment 8 weeks Plan of Care Start Date 06/14/21 Plan of Care End Date 08/12/21 Therapeutic Interventions Therapeutic Interventions Aquatic Therapy,Balance Training,Canalithic Repositioning,Gait Training, Home Exercise Program,Joint Mobilizations,Manual Therapy, Neuromuscular Re-education, Patient/Caregiver Education, Self-Care/Home Management,Soft Tissue Mobilization,Taping, Therapeutic Activities, Therapeutic Exercises Modalities Cold Pack/Ice Massage,Hot Packs Next Visit Focus/Plan Next Note Type Treatment Note Next Visit Plan Consider checking orthostatics supine to stand, standing and standing 1' in future treatments given history of orthostasis in the past Start recumbent stepper and progress to upright bike Work on knee extension exercise and gentle thoracic rotation in sitting for HEP 6MWT in the future Plan of Care Dates Plan of Care Start Date 06/14/21 Plan of Care End Date 08/12/21 Electronically Signed by: Angelica Millan, PT 06/14/21 [id number] Please Sign and Return: I have reviewed this Plan of Care and certify that the skilled therapy services above are required to meet the patient?s needs. Physician Signature Date Printed Name and Credentials Clinical Instructor Signature Printed Name and Credentials
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
--- NOTE | 2021-06-17 09:16 | PT-OP ANOTE ---
Pt's caregiver called to cancell same today's appt, just got to pt's house, he is in pain and ill, unable to attend PT today.
--- NOTE | 2021-06-21 09:55 | PT-OP ANOTE ---
Same day cancellation for first treatment after eval.
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
--- NOTE | 2021-06-27 10:58 | PT-OP ANOTE ---
Pt did not show for today's appt. [employer] called and left a message regarding missed appt and known awareness of ER visit last Sunday with discussion with supervising therapist Angelica was ok to see pt for today's visit upon chart review. [employer] offered opening on her schedule at 1430 today 06/27 as well to see [employer] if able otherwise reminded of next scheduled appt on 06/29/21 at 1030.
--- NOTE | 2021-06-29 10:48 | PT-OP ANOTE ---
PT misses a second appointment this week. PT calls pt. He did not stay in the hospital after ED visit. He has not followed up with PCP and has not made an appointment. He thought that all his PT appointments were cancelled d/t his ED visit. Caregiver, Hank, is nearby and she states that she threw out pt's appointment list d/t he told her that all PT appointments were cancelled. Pt would like to con't with PT and PT ed pt and Hank that his next visit is at 0945 on 07/04 and if he does not make that appointment, will d/c PT and he cannot have any further PT for the rest of the year d/t insurance. They both verbalize understanding and will get a new appointment list at that appointment. Pt nor care provider seem to understand the importance of his PCP knowing that he was in the ED, that he had stopped PT, etc. PT re-ed that his providers do need to be in the loop about his presentation (confusion, shakiness, ED visit, etc). Discharge pt if he misses the next appointment.
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
== END 2021-09-13 09:44 ==
LOC: PHYS 10:30
PROVIDERS: Family Provider Internal Medicine; PCP Internal Medicine; Referring Provider Orthopaedic Surgery; Visit Provider Orthopaedic Surgery
DX: M17.5 Other unilateral secondary osteoarthritis of knee (principal)
CPT/HCPCS: 97162; 97535

== ENCOUNTER 2021-06-24 10:49 | Emergency (ER) | payer OTHER, MEDICAID, SELFPAY ==
[2021-05-09 12:47] VITALS: BMI 32.6
[2021-06-24] VITALS (20 sets, daily range): BP systolic 128–198; BP diastolic 60–112; PULSE 56–69; RESP 13–18; TEMP 36.1; O2SAT 96–100
--- NOTE | 2021-06-24 11:02 | DI.RAD.S_ITS ---
PROCEDURE: XR CHEST 1V INDICATIONS: suspected sepsis TECHNIQUE: One view of the chest was acquired. COMPARISON: [facility], CR, XR CHEST 1V, 07/26/2020, 8:22. FINDINGS: Surgical changes and devices: Upper abdominal clips to the right of midline. Cervical fusion hardware. Lungs and pleura: Lungs are clear. No pleural effusions or pneumothorax. Mediastinum: Mediastinal contours appear normal. Heart size is normal. Bones and chest wall: No suspicious bony lesions. Overlying soft tissues appear unremarkable. IMPRESSION: No evidence acute pulmonary process. Dictated by: Kenan Banuelos M.D. on 06/24/2021 at 11:47 Approved by: Kenan Banuelos M.D. on 06/24/2021 at 11:50
[2021-06-24 11:30] LABS: Add Manual Diff / Slide Review NO; Basophils Absolute Auto 100 /uL (0-100); Basophils Percent Auto 1.4 % (0-2); Eosinophils Absolute Auto 100 /uL (0-450); Eosinophils Percent Auto 1.7 % (2-4); Hematocrit 42.4 % (41-53); Hemoglobin 13.9 g/dL (13.5-17.5); Lymphocytes Absolute Auto 3900 /uL (1100-4500); Lymphocytes Percent Auto 49.7 % (25-40); Mean Corpuscular HGB Conc 32.9 % (30-36); Mean Corpuscular Volume 103.4 fL (80-100); Monocytes Absolute Auto 600 /uL (0-900); Monocytes Percent Auto 8.3 % (3-14); Neutrophils Absolute Auto 3000 /uL (1500-7000); Neutrophils Percent Auto 38.9 % (50-75); Platelet Count 160 X10^3/uL (150-400); Red Cell Distribution Width 16.1 % (11.6-14.8); White Blood Cell Count 7.8 X10^3/uL (4.5-11.0)
[2021-06-24 11:41] LABS: Alanine Aminotransferase 47 IU/L (<50); Albumin 3.4 g/dL (3.5-5.0); Albumin Globulin Ratio 0.9 (1.0-2.8); Alkaline Phosphatase 337 U/L (38-126); Aspartate Aminotransferase 103 IU/L (17-59); BUN Creatinine Ratio 16.1 (6-22); Bilirubin Total 1.4 mg/dL (0.2-1.3); Blood Urea Nitrogen 41 mg/dL (9-20); Calcium 8.6 mg/dL (8.4-10.2); Carbon Dioxide 27 mmol/L (22-32); Chloride 103 mmol/L (98-107); Estimated Glomerular Filt Rate 26.3 mL/min (>60); Globulin 3.6 g/dL (1.7-4.1); Glucose 125 mg/dL (70-100); HEMOLYSIS < 15 (0-50); Lactate (Lactic Acid) 1.5 mmol/L (0.7-2.1); Lipase 36 U/L (23-300); Potassium 3.9 mmol/L (3.4-5.1); Sodium 138 mmol/L (137-145)
[2021-06-24] MEDS: SODIUM CHLORIDE 0.9% 1,000 ML 1000 ML IV (11:55)
[2021-06-24 11:56] LABS: Procalcitonin 0.12 ng/mL (<0.5)
[2021-06-24 12:36] LABS: COVID19 - ADMIT (NP swab/PCR) Negative (Negative)
[2021-06-24 13:32] LABS: Bacteria Urine Occasional (0-1); Culture Indicated Urine Cult Not Indicated; RBC Urine 1-5/HPF (0-5/HPF); Squamous Epithelial Cell Urine 0-1 /HPF (0-5/HPF); WBC Urine 0-1/HPF (0-5/HPF)
--- NOTE | 2021-06-24 13:52 | ED_ITS ---
HPI - Neuro Symptoms/Deficit <Kirk Dominguez PA-C - Last Filed: 06/24/21 19:36> General Chief Complaint: Neuro Symptoms/Deficit Stated Complaint: EXTREME CONFUSION/VOMITTING Time Seen by Provider: 06/24/21 13:20 Source: patient and other Mode of arrival: Wheelchair Limitations: no limitations History of Present Illness HPI Narrative: Patient is a 55-year-old male presenting to the emergency department today for evaluation of 2 days of confusion. His caregiver explains that he has a been more confused over the last 2 days and she states that the patient experienced an episode of vomiting today that he did not recall. Additionally, patient's caregiver explains that the patient has recently started consuming THC edibles approximately 1 week ago and she notes that his chronic tremor has appeared worse since that time. 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 Initially upon entering the emergency department patient was unable to state his age or his date. No known fever, chills, chest pain, shortness of breath, abdominal pain, diarrhea reported. No recent trauma or injuries reported. No other concerns voiced at this time. Related Data Home Medications Medication Instructions Recorded Confirmed allopurinol 100 mg tablet 100 mg PO DAILY 01/14/20 05/09/21 cyclosporine modified 25 mg capsule 25 mg PO BID 01/14/20 05/09/21 duloxetine 20 mg capsule,delayed 20 mg PO DAILY 01/14/20 05/09/21 release (Cymbalta) fentanyl 25 mcg/hr transdermal See Rx Instructions .ROUTE .COMPLEX 01/14/20 05/09/21 patch (Duragesic) gabapentin 300 mg capsule 300 mg PO BID 01/14/20 05/09/21 hydroxyzine pamoate 25 mg capsule 25 mg PO BEDTIME PRN 01/14/20 05/09/21 (Vistaril) lidocaine 5 % topical patch 1 patch TOPICAL DAILY 01/14/20 05/09/21 (Lidoderm) mycophenolate mofetil 500 mg 500 mg PO BID 01/14/20 05/09/21 tablet (CellCept) ondansetron HCl 4 mg tablet 4 mg PO Q8H PRN 01/14/20 05/09/21 (Zofran) pyridoxine (vitamin B6) 100 mg 100 mg PO DAILY 01/14/20 05/09/21 tablet quetiapine 25 mg tablet (Seroquel) 25 mg PO BEDTIME 01/14/20 05/09/21 ursodiol 300 mg capsule 300 mg PO BID 01/14/20 05/09/21 vitamin B complex-vitamin C-folic 1 tab PO DAILY 01/14/20 05/09/21 acid 0.8 mg tablet (Kellie-Ramila) furosemide 20 mg tablet 20 mg PO DAILY 07/26/20 04/27/21 rifaximin 550 mg tablet (Xifaxan) 550 mg PO BID 09/20/20 05/09/21 metoprolol succinate 25 mg 25 mg PO DAILY 01/25/21 05/09/21 tablet,extended release 24 hr tamsulosin 0.4 mg capsule 0.4 mg PO BEDTIME 04/27/21 05/09/21 Previous Rx's Medication Instructions Recorded ondansetron 4 mg disintegrating 4 mg PO TID-QID PRN #10 tab 05/14/20 tablet pantoprazole 40 mg tablet,delayed 40 mg PO DAILY #30 tab 05/14/20 release (Protonix) hydromorphone 4 mg tablet 4 mg PO Q6H PRN #30 tab 09/24/20 acetaminophen 325 mg capsule 650 mg PO Q4-6H PRN #0 cap 09/29/20 (Tylenol) cyclobenzaprine 10 mg tablet 10 mg PO Q8H PRN #0 tab 09/29/20 naloxone 4 mg/actuation nasal 1 spray INTRANASAL PER PKG DIR 30 09/29/20 spray (Narcan) Days #1 ea acetaminophen 325 mg tablet 650 mg PO TID #90 tab 05/11/21 aspirin 81 mg tablet,delayed 81 mg PO BID #90 tab 05/11/21 release hydroxyzine pamoate 25 mg capsule 25 mg PO BEDTIME PRN #60 cap 05/11/21 oxycodone 10 mg tablet 10 mg PO Q3HR PRN #60 tab 05/11/21 Allergies Allergy/AdvReac Type Severity Reaction Status Date / Time adhesive tape Allergy Severe Paper Verified 06/24/21 11:02 tape causes big sores doxylamine [From NyQuil] Allergy Severe Seizure Verified 06/24/21 11:02 venom-honey bee Allergy Severe Wheezing, Verified 06/24/21 11:02 [BEE VENOM (HONEY BEE)] throat closing pseudoephedrine Allergy Pt does Verified 06/24/21 11:02 not recall codeine AdvReac Severe Vomiting Verified 06/24/21 11:02 dextromethorphan AdvReac Severe Seizure Verified 06/24/21 11:02 NSAIDS (Non-Steroidal AdvReac Severe Abdominal Verified 06/24/21 11:02 Anti-Inflamma Pain copper AdvReac Intermediate Soaks Verified 06/24/21 11:02 into my body and hurts my jaw and joints morphine AdvReac Intermediate Vomiting Verified 06/24/21 11:02 oxycodone AdvReac Intermediate Vomiting Verified 06/24/21 11:02 tizanidine AdvReac Unknown Pt does Verified 06/24/21 11:02 not recall Review of Systems <Kirk Dominguez PA-C - Last Filed: 06/24/21 19:36> Constitutional Constitutional: Denies chills, Denies fever(s), Denies frequent falls, Denies lethargy and Denies weakness Eyes Eyes: Denies change in vision, Denies eye discharge, Denies irritation and Denies loss of vision ENT Ears, Nose, Mouth, and Throat: Denies dizziness Cardiovascular Cardiovascular: Denies chest pain, Denies irregular heart rhythm, Denies lightheadedness, Denies palpitations, Denies dyspnea, Denies dyspnea on exertion and Denies orthopnea Respiratory Respiratory: Denies cough, Denies dyspnea, Denies dyspnea on exertion and Denies wheezing Gastrointestinal Gastrointestinal: Denies abdominal pain, Denies change in bowel habits, Denies diarrhea, Denies nausea and Reports vomiting Musculoskeletal Musculoskeletal: Denies numbness Integumentary/Breasts Skin/Breast: Denies pruritus, Denies erythema, Denies rash and Denies wounds Neurologic Neurologic: Reports behavioral changes, Reports confusion, Denies dizziness, Denies frequent falls, Denies loss of vision, Denies numbness and Denies weakness Psychiatric Psychiatric: Reports behavioral changes and Reports confusion Endocrine Endocrine: Denies palpitations Allergic/Immunologic Allergic/Immunologic: Denies wheezing Patient History <Kirk Dominguez PA-C - Last Filed: 06/24/21 19:36> Medical History Cirrhosis of liver CKD (chronic kidney disease) Compression fracture Depression Former smoker GERD (gastroesophageal reflux disease) Gout Hepatitis C (~2011) History of vertebral compression fracture Hypertension Immunosuppression Liver cancer Medical marijuana use GUILLE (obstructive sleep apnea) Osteoporosis PAC (premature atrial contraction) Pain management contract agreement Paroxysmal atrial fibrillation PVC (premature ventricular contraction) Thrombocytopenia Surgical History H/O right wrist surgery History of biliary duct stent placement (01/2013) History of open reduction and internal fixation (ORIF) procedure (09/22/20) History of removal of retained hardware (01/25/21) History of right hip replacement Hx of appendectomy (~1979) Hx of cholecystectomy (~2003) Hx of elbow surgery (~2003) Hx of elbow surgery (~2007) Hx of fusion of cervical spine Hx of hernia repair Hx of shoulder surgery (~2012) Hx of tonsillectomy (~1969) Liver transplant recipient (11/24/11) Presence of left artificial elbow joint Family History Mother Renal failure Father Diabetes mellitus Congestive heart failure Social History household members: caregiver and none Smoking Status: Former smoker alcohol intake: current Smoking Status: Former smoker tobacco type: cigarettes alcohol intake frequency: a few times a month Alcohol type: hard liquor Substance Use Type: marijuana Exam <Kirk Dominguez PA-C - Last Filed: 06/24/21 19:36> Narrative Exam Narrative: GENERAL: 55 year old patient appears stated age. Well-developed patient, in mild distress. Appears confused and has difficulty cooperating with commands. HEAD: Atraumatic. Normocephalic. EYES: Pupils equal round and reactive. Extraocular motions intact. No scleral icterus. No injection or drainage. ENT: Nose without bleeding, purulent drainage. Throat without erythema, tonsillar hypertrophy or exudate. Airway patent. NECK: Trachea midline. Non tender CARDIOVASCULAR: Regular rate and rhythm without murmurs, gallops, or rubs. No carotid bruits auscultated. RESPIRATORY: Clear to auscultation. Breath sounds equal bilaterally. No wheezes, rales, or rhonchi. GASTROINTESTINAL: Abdomen soft, non-tender, nondistended. EXTREMITIES: No edema or joint tenderness. BACK: Nontender without deformity or crepitance. No flank tenderness. 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 Patient unable to perform H in space and appears to have difficulty following instructions. Tremors and twitching at rest, wind energy project manager notes that this is baseline for patient. SKIN: No rash or erythema of visible areas Initial Vital Signs Initial Vital Signs: Vital Signs Temperature 97.0 F L 06/24/21 10:55 Pulse Rate 67 06/24/21 10:55 Respiratory Rate 17 06/24/21 10:55 Blood Pressure 198/112 H 06/24/21 10:55 Pulse Oximetry 100 06/24/21 10:55 <James Belcher MD - Last Filed: 06/25/21 07:21> Initial Vital Signs Initial Vital Signs: Vital Signs Temperature 97.0 F L 06/24/21 10:55 Pulse Rate 67 06/24/21 10:55 Respiratory Rate 17 06/24/21 10:55 Blood Pressure 198/112 H 06/24/21 10:55 Pulse Oximetry 100 06/24/21 10:55 Course <Kirk Dominguez PA-C - Last Filed: 06/24/21 19:36> Course Course Narrative: CBC, CMP, procalcitonin, lactate lipase, chest x-ray, urine COVID swab, EKG, CT of the head, and urine tox obtained. Orders Ordered: Discontinued Medications Sodium Chloride (Normal Saline 0.9%) 1,000 mls @ 1,000 mls/hr IV BOLUS ONE Stop: 06/24/21 12:01 Last Infusion: 06/24/21 13:40 Dose: 0 mls/hr Documented by: ИВАН Admin: 06/24/21 11:55 Dose: 1,000 mls/hr Documented by: ИВАН Consultations Consultation #1: Consult with Dr. Austin, advised order an ammonia level on the patient and if ammonia levels are elevated increase the patient's lactulose dose. Time: 17:46 Vital Signs Vital signs: Vital Signs - 8 hr 06/24/21 11:53 06/24/21 12:00 06/24/21 12:30 Pulse Rate 56 L 57 L 60 Respiratory Rate 15 Blood Pressure 171/85 H 159/82 H 180/85 H Pulse Oximetry 98 98 98 06/24/21 13:00 06/24/21 13:30 06/24/21 13:57 Pulse Rate 58 L 62 61 Respiratory Rate 17 17 Blood Pressure 157/83 H Pulse Oximetry 98 98 100 06/24/21 14:00 06/24/21 14:01 06/24/21 14:30 Pulse Rate 60 59 L 57 L Respiratory Rate Blood Pressure 145/77 H Pulse Oximetry 100 100 98 06/24/21 14:59 06/24/21 15:00 06/24/21 15:30 Pulse Rate 58 L 57 L 59 L Respiratory Rate Blood Pressure 128/61 Pulse Oximetry 98 97 97 06/24/21 16:00 06/24/21 16:30 06/24/21 17:00 Pulse Rate 69 61 61 Respiratory Rate 18 18 Blood Pressure 128/60 130/72 Pulse Oximetry 96 98 96 06/24/21 18:30 Pulse Rate 58 L Respiratory Rate Blood Pressure 171/95 H Pulse Oximetry 96 <James Belcher MD - Last Filed: 06/25/21 07:21> Orders Ordered: Discontinued Medications Sodium Chloride (Normal Saline 0.9%) 1,000 mls @ 1,000 mls/hr IV BOLUS ONE Stop: 06/24/21 12:01 Last Infusion: 06/24/21 13:40 Dose: 0 mls/hr Documented by: ИВАН Admin: 06/24/21 11:55 Dose: 1,000 mls/hr Documented by: ИВАН Vital Signs Vital signs: Vital Signs - 8 hr 06/24/21 11:53 06/24/21 12:00 06/24/21 12:30 Pulse Rate 56 L 57 L 60 Respiratory Rate 15 Blood Pressure 171/85 H 159/82 H 180/85 H Pulse Oximetry 98 98 98 06/24/21 13:00 06/24/21 13:30 06/24/21 13:57 Pulse Rate 58 L 62 61 Respiratory Rate 17 17 Blood Pressure 157/83 H Pulse Oximetry 98 98 100 06/24/21 14:00 06/24/21 14:01 06/24/21 14:30 Pulse Rate 60 59 L 57 L Respiratory Rate Blood Pressure 145/77 H Pulse Oximetry 100 100 98 06/24/21 14:59 06/24/21 15:00 06/24/21 15:30 Pulse Rate 58 L 57 L 59 L Respiratory Rate Blood Pressure 128/61 Pulse Oximetry 98 97 97 06/24/21 16:00 06/24/21 16:30 06/24/21 17:00 Pulse Rate 69 61 61 Respiratory Rate 18 18 Blood Pressure 128/60 130/72 Pulse Oximetry 96 98 96 06/24/21 18:30 Pulse Rate 58 L Respiratory Rate Blood Pressure 171/95 H Pulse Oximetry 96 MDM - Neuro Symptoms/Deficit <Kirk Dominguez PA-C - Last Filed: 06/24/21 19:36> Lab Data Lab results narrative: I have personally reviewed labs prior to discharge. Result diagrams: 06/24/21 11:15 06/24/21 11:15 Labs: Lab Results 06/24/21 06/24/21 06/24/21 Range/Units 11:15 11:15 11:15 WBC 7.8 (4.5-11.0) X10^3/uL RBC 4.10 L (4.5-5.9) X10^6/uL Hgb 13.9 (13.5-17.5) g/dL Hct 42.4 (41-53) % MCV 103.4 H (80-100) fL MCH 34.0 (26-34) PG MCHC 32.9 (30-36) % RDW 16.1 H (11.6-14.8) % Plt Count 160 (150-400) X10^3/uL Neut % (Auto) 38.9 L (50-75) % Lymph % (Auto) 49.7 H (25-40) % Summers % (Auto) 8.3 (3-14) % Eos % (Auto) 1.7 L (2-4) % Baso % (Auto) 1.4 (0-2) % Neut # (Auto) 3000 (1635-5627) /uL Lymph # (Auto) 3900 (7196-8599) /uL Summers # (Auto) 600 (0-900) /uL Eos # (Auto) 100 (0-450) /uL Baso # (Auto) 100 (0-100) /uL Sodium 138 (137-145) mmol/L Potassium 3.9 (3.4-5.1) mmol/L Chloride 103 (98-107) mmol/L Carbon Dioxide 27 (22-32) mmol/L BUN 41 H (9-20) mg/dL Creatinine 2.54 H (0.66-1.25) mg/dL Estimated GFR 26.3 L (>60) mL/min BUN/Creatinine Ratio 16.1 (6-22) Glucose 125 H (70-100) mg/dL Lactate 1.5 (0.7-2.1) mmol/L Calcium 8.6 (8.4-10.2) mg/dL Total Bilirubin 1.4 H (0.2-1.3) mg/dL AST 103 H (17-59) IU/L ALT 47 (<50) IU/L Alkaline Phosphatase 337 H (38-126) U/L Total Protein 7.0 (6.3-8.2) g/dL Albumin 3.4 L (3.5-5.0) g/dL Globulin 3.6 (1.7-4.1) g/dL Albumin/Globulin Ratio 0.9 L (1.0-2.8) Lipase 36 (23-300) U/L Procalcitonin 0.12 (<0.5) ng/mL Urine RBC (0-5/HPF) Urine WBC (0-5/HPF) Ur Squamous Epith Cells (0-5/HPF) Urine Bacteria (None) Ur Culture Indicated? U Opiates 300ng/mL cut (Negative) Ur Oxycodone Screen (Negative) Urine Methadone Screen (Negative) Ur Barbiturates Screen (Negative) U Tricyclic Antidepress (Negative) Ur Phencyclidine Scrn (Negative) Ur Amphetamines Screen (Negative) U Methamphetamines Scrn (Negative) Ur MDMA Scrn (Ecstasy) (Negative) U Benzodiazepines Scrn (Negative) Urine Cocaine Screen (Negative) U Marijuana (THC) Screen (Negative) SARS-CoV-2 (PCR) (Negative) 06/24/21 06/24/21 06/24/21 Range/Units 11:32 12:50 12:50 WBC (4.5-11.0) X10^3/uL RBC (4.5-5.9) X10^6/uL Hgb (13.5-17.5) g/dL Hct (41-53) % MCV (80-100) fL MCH (26-34) PG MCHC (30-36) % RDW (11.6-14.8) % Plt Count (150-400) X10^3/uL Neut % (Auto) (50-75) % Lymph % (Auto) (25-40) % Summers % (Auto) (3-14) % Eos % (Auto) (2-4) % Baso % (Auto) (0-2) % Neut # (Auto) (8736-7509) /uL Lymph # (Auto) (0827-5114) /uL Summers # (Auto) (0-900) /uL Eos # (Auto) (0-450) /uL Baso # (Auto) (0-100) /uL Sodium (137-145) mmol/L Potassium (3.4-5.1) mmol/L Chloride (98-107) mmol/L Carbon Dioxide (22-32) mmol/L BUN (9-20) mg/dL Creatinine (0.66-1.25) mg/dL Estimated GFR (>60) mL/min BUN/Creatinine Ratio (6-22) Glucose (70-100) mg/dL Lactate (0.7-2.1) mmol/L Calcium (8.4-10.2) mg/dL Total Bilirubin (0.2-1.3) mg/dL AST (17-59) IU/L ALT (<50) IU/L Alkaline Phosphatase (38-126) U/L Total Protein (6.3-8.2) g/dL Albumin (3.5-5.0) g/dL Globulin (1.7-4.1) g/dL Albumin/Globulin Ratio (1.0-2.8) Lipase (23-300) U/L Procalcitonin (<0.5) ng/mL Urine RBC 1-5/hpf (0-5/HPF) Urine WBC 0-1/hpf (0-5/HPF) Ur Squamous Epith Cells 0-1 /hpf (0-5/HPF) Urine Bacteria Occasional (0-1) (None) Ur Culture Indicated? Cult not indicated U Opiates 300ng/mL cut Negative (Negative) Ur Oxycodone Screen Negative (Negative) Urine Methadone Screen Negative (Negative) Ur Barbiturates Screen Negative (Negative) U Tricyclic Antidepress Negative (Negative) Ur Phencyclidine Scrn Negative (Negative) Ur Amphetamines Screen Negative (Negative) U Methamphetamines Scrn Negative (Negative) Ur MDMA Scrn (Ecstasy) Negative (Negative) U Benzodiazepines Scrn Negative (Negative) Urine Cocaine Screen Negative (Negative) U Marijuana (THC) Screen Positive H (Negative) SARS-CoV-2 (PCR) Negative (Negative) Urine Dip Bedside Urine Glucose Negative Bedside Urine Bilirubin - Negative Bedside Urine Ketone - Negative Urine Specific [place] 1.015 Bedside Urine Occult Blood - Negative Bedside Urine pH 6.0 Bedside Urine Protein + 30 Bedside Urine Urobilinogen - Negative Bedside Urine Nitrite - Negative Bedside Urine Leukocytes - Negative Esterase Imaging Data CT scan - head: Radiologist's Impression: PROCEDURE: CT HEAD/BRAIN WO CON INDICATIONS: Confusion TECHNIQUE: Noncontrast 4.5 mm thick angled axial sections acquired from the foramen magnum to the vertex, with coronal and sagittal reformats. For radiation dose reduction, the following was used: automated exposure control, adjustment of mA and/or kV according to patient size. COMPARISON: [facility], MR, MR BRAIN WITHOUT CONTRAST, 04/01/2018, 21:50. [facility], CT, CT HEAD/BRAIN WO CON, 09/20/2020, 9:37. FINDINGS: Image quality: Excellent. CSF spaces: Basal cisterns are patent. No extra-axial fluid collections. The ventricles are symmetric in size and shape. Brain: Small hypodensity in the left basal ganglia may represent old lacunar infarct or dilated perivascular space. No intracranial bleeds or masses. There is mild cerebral volume loss for age, with resultant ventricular and sulcal prominence. There are moderate periventricular and deep white matter chronic small vessel ischemic changes. There is intracranial internal carotid artery atherosclerosis. Skull and face: Calvarium and visualized facial bones appear intact, without suspicious lesions. Sinuses: Visualized sinuses and mastoids are clear. IMPRESSION: 1. No acute intracranial abnormalities. 2. Cerebral volume loss and chronic microvascular ischemic changes. Dictated by: Sandi Rios M.D. on 06/24/2021 at 14:19 Approved by: Sandi Rios M.D. on 06/24/2021 at 14:22 MDM Narrative Medical decision making narrative: Patient is a 55-year-old male presenting to the emergency department today for evaluation of 2 days of confusion. To consider CVA versus TIA versus drug intoxication. Head CT showed no acute intracranial abnormalities. Discussed with patient and caregiver results labs and imaging. Discussed with the patient the possibility of obtaining ammonia level, heaving he mainly refused and says he wants to go home. I explained the risks of leaving the emergency department without further evaluation, however the patient states that he wants to go home and does not want any further testing. Strict return precautions discussed with patient and caregiver prior to discharge. <James Belcher MD - Last Filed: 06/25/21 07:21> Lab Data Labs: Lab Results 06/24/21 06/24/21 06/24/21 Range/Units 11:15 11:15 11:15 WBC 7.8 (4.5-11.0) X10^3/uL RBC 4.10 L (4.5-5.9) X10^6/uL Hgb 13.9 (13.5-17.5) g/dL Hct 42.4 (41-53) % MCV 103.4 H (80-100) fL MCH 34.0 (26-34) PG MCHC 32.9 (30-36) % RDW 16.1 H (11.6-14.8) % Plt Count 160 (150-400) X10^3/uL Neut % (Auto) 38.9 L (50-75) % Lymph % (Auto) 49.7 H (25-40) % Summers % (Auto) 8.3 (3-14) % Eos % (Auto) 1.7 L (2-4) % Baso % (Auto) 1.4 (0-2) % Neut # (Auto) 3000 (3946-0796) /uL Lymph # (Auto) 3900 (1972-6222) /uL [place]mers # (Auto) 600 (0-900) /uL Eos # (Auto) 100 (0-450) /uL Baso # (Auto) 100 (0-100) /uL Sodium 138 (137-145) mmol/L Potassium 3.9 (3.4-5.1) mmol/L Chloride 103 (98-107) mmol/L Carbon Dioxide 27 (22-32) mmol/L BUN 41 H (9-20) mg/dL Creatinine 2.54 H (0.66-1.25) mg/dL Estimated GFR 26.3 L (>60) mL/min BUN/Creatinine Ratio 16.1 (6-22) Glucose 125 H (70-100) mg/dL Lactate 1.5 (0.7-2.1) mmol/L Calcium 8.6 (8.4-10.2) mg/dL Total Bilirubin 1.4 H (0.2-1.3) mg/dL AST 103 H (17-59) IU/L ALT 47 (<50) IU/L Alkaline Phosphatase 337 H (38-126) U/L Total Protein 7.0 (6.3-8.2) g/dL Albumin 3.4 L (3.5-5.0) g/dL Globulin 3.6 (1.7-4.1) g/dL Albumin/Globulin Ratio 0.9 L (1.0-2.8) Lipase 36 (23-300) U/L Procalcitonin 0.12 (<0.5) ng/mL Urine RBC (0-5/HPF) Urine WBC (0-5/HPF) Ur Squamous Epith Cells (0-5/HPF) Urine Bacteria (None) Ur Culture Indicated? U Opiates 300ng/mL cut (Negative) Ur Oxycodone Screen (Negative) Urine Methadone Screen (Negative) Ur Barbiturates Screen (Negative) U Tricyclic Antidepress (Negative) Ur Phencyclidine Scrn (Negative) Ur Amphetamines Screen (Negative) U Methamphetamines Scrn (Negative) Ur MDMA Scrn (Ecstasy) (Negative) U Benzodiazepines Scrn (Negative) Urine Cocaine Screen (Negative) U Marijuana (THC) Screen (Negative) SARS-CoV-2 (PCR) (Negative) 06/24/21 06/24/21 06/24/21 Range/Units 11:32 12:50 12:50 WBC (4.5-11.0) X10^3/uL RBC (4.5-5.9) X10^6/uL Hgb (13.5-17.5) g/dL Hct (41-53) % MCV (80-100) fL MCH (26-34) PG MCHC (30-36) % RDW (11.6-14.8) % Plt Count (150-400) X10^3/uL Neut % (Auto) (50-75) % Lymph % (Auto) (25-40) % Summers % (Auto) (3-14) % Eos % (Auto) (2-4) % Baso % (Auto) (0-2) % Neut # (Auto) (2347-5689) /uL Lymph # (Auto) (3081-7947) /uL Summers # (Auto) (0-900) /uL Eos # (Auto) (0-450) /uL Baso # (Auto) (0-100) /uL Sodium (137-145) mmol/L Potassium (3.4-5.1) mmol/L Chloride (98-107) mmol/L Carbon Dioxide (22-32) mmol/L BUN (9-20) mg/dL Creatinine (0.66-1.25) mg/dL Estimated GFR (>60) mL/min BUN/Creatinine Ratio (6-22) Glucose (70-100) mg/dL Lactate (0.7-2.1) mmol/L Calcium (8.4-10.2) mg/dL Total Bilirubin (0.2-1.3) mg/dL AST (17-59) IU/L ALT (<50) IU/L Alkaline Phosphatase (38-126) U/L Total Protein (6.3-8.2) g/dL Albumin (3.5-5.0) g/dL Globulin (1.7-4.1) g/dL Albumin/Globulin Ratio (1.0-2.8) Lipase (23-300) U/L Procalcitonin (<0.5) ng/mL Urine RBC 1-5/hpf (0-5/HPF) Urine WBC 0-1/hpf (0-5/HPF) Ur Squamous Epith Cells 0-1 /hpf (0-5/HPF) Urine Bacteria Occasional (0-1) (None) Ur Culture Indicated? Cult not indicated U Opiates 300ng/mL cut Negative (Negative) Ur Oxycodone Screen Negative (Negative) Urine Methadone Screen Negative (Negative) Ur Barbiturates Screen Negative (Negative) U Tricyclic Antidepress Negative (Negative) Ur Phencyclidine Scrn Negative (Negative) Ur Amphetamines Screen Negative (Negative) U Methamphetamines Scrn Negative (Negative) Ur MDMA Scrn (Ecstasy) Negative (Negative) U Benzodiazepines Scrn Negative (Negative) Urine Cocaine Screen Negative (Negative) U Marijuana (THC) Screen Positive H (Negative) SARS-CoV-2 (PCR) Negative (Negative) Urine Dip Bedside Urine Glucose Negative Bedside Urine Bilirubin - Negative Bedside Urine Ketone - Negative Urine Specific [place] 1.015 Bedside Urine Occult Blood - Negative Bedside Urine pH 6.0 Bedside Urine Protein + 30 Bedside Urine Urobilinogen - Negative Bedside Urine Nitrite - Negative Bedside Urine Leukocytes - Negative Esterase Discharge Plan Departure Patient Disposition: Home Clinical Impression: Acute confusion, Marijuana use Instructions: Delirium Activity Restrictions/Additional Instructions: *You have been diagnosed with acute confusion *What to do: *Please continue to take your regular medications as directed. [ ] New medication prescriptions sent to your pharmacy: [ ] [ ] New medication written as a paper prescription [X] No new medications given *Please follow up with your primary care provider in the next 24-48 hours, call for an appointment. Let them know you were seen in the Emergency Department and that we ask that you be seen in follow up. We will electronically transmit a record of today's note if your PCP is in our system *If you do not have a primary care provider please contact the [facility] Resource line at [phone]. They will ask some questions about your medical history and help get you set up with a doctor in the community. *Return to Emergency Department if you should have any new, worsening or concerning symptoms, such as fever greater than 101 F, shaking chills, worsening confusion, persistent vomiting or other bothersome symptoms. Prescriptions: No Action furosemide 20 mg tablet 20 mg PO DAILY RF: 0 tamsulosin 0.4 mg Capsule 0.4 mg PO BEDTIME RF: 0 acetaminophen 325 mg Tablet 650 mg PO TID Qty: 90 RF: 0 aspirin 81 mg Tablet,Delayed Release (Dr/Ec) 81 mg PO BID Qty: 90 RF: 0 hydroxyzine pamoate 25 mg Capsule 25 mg PO BEDTIME PRN (Reason: Itching) Qty: 60 RF: 0 oxycodone 10 mg Tablet 10 mg PO Q3HR PRN (Reason: Pain, Severe (7-10)) Qty: 60 RF: 0 quetiapine [Seroquel] 25 mg Tablet 25 mg PO BEDTIME RF: 0 cyclosporine modified 25 mg Capsule 25 mg PO BID RF: 0 ondansetron HCl [Zofran] 4 mg Tablet 4 mg PO Q8H PRN (Reason: Nausea) RF: 0 allopurinol 100 mg Tablet 100 mg PO DAILY RF: 0 mycophenolate mofetil [CellCept] 500 mg Tablet 500 mg PO BID RF: 0 lidocaine [Lidoderm] 5 % Adhesive Patch,Medicated 1 patch TOPICAL DAILY RF: 0 ursodiol 300 mg Capsule 300 mg PO BID RF: 0 gabapentin 300 mg Capsule 300 mg PO BID RF: 0 Kellie-Ramila 0.8 mg Tablet 1 tab PO DAILY RF: 0 pyridoxine (vitamin B6) 100 mg Tablet 100 mg PO DAILY RF: 0 fentanyl [Duragesic] 25 mcg/hr Patch 72 Hour See Rx Instructions .ROUTE .COMPLEX RF: 0 hydroxyzine pamoate [Vistaril] 25 mg Capsule 25 mg PO BEDTIME PRN (Reason: Itching) RF: 0 duloxetine [Cymbalta] 20 mg Capsule,Delayed Release(Dr/Ec) 20 mg PO DAILY RF: 0 ondansetron 4 mg tablet,disintegrating 4 mg PO TID-QID PRN (Reason: nausea and vomiting) Qty: 10 RF: 0 pantoprazole [Protonix] 40 mg tablet,delayed release (DR/EC) 40 mg PO DAILY Qty: 30 RF: 0 Xifaxan 550 mg Tablet 550 mg PO BID RF: 0 hydromorphone 4 mg tablet 4 mg PO Q6H PRN (Reason: pain) Qty: 30 RF: 0 cyclobenzaprine 10 mg Tablet 10 mg PO Q8H PRN (Reason: Spasms) Qty: 0 RF: 0 acetaminophen [Tylenol] 325 mg Capsule 650 mg PO Q4-6H PRN (Reason: Pain, Moderate) Qty: 0 RF: 0 Narcan 4 mg/actuation [place],Non-Aerosol 1 spray INTRANASAL PER PKG DIR 30 Days Qty: 1 RF: 0 metoprolol succinate 25 mg tablet extended release 24 hr 25 mg PO DAILY RF: 0 Referrals: Kevin Porter MD [Primary Care Provider] -
[2021-06-24 17:37] LABS: UR Morphine/Opiate cutoff 300 Negative (Negative); Ur Creatinine Normal (Normal); Ur Specific Gravity Normal (Normal); Urine Amphetamines Negative (Negative); Urine Barbiturates Negative (Negative); Urine Benzodiazepines Negative (Negative); Urine Cocaine Negative (Negative); Urine MDMA Negative (Negative); Urine Methadone Negative (Negative); Urine Methamphetamines Negative (Negative); Urine Oxycodone Negative (Negative); Urine Phencyclidine Negative (Negative); Urine Tetrahydrocannabinol Positive (Negative); Urine Tricyclic Antidepressant Negative (Negative); Urine pH Normal (Normal)
== END 2021-06-24 18:59 | disposition home or self-care (01) ==
PROVIDERS: Emergency Medicine; Emergency Provider Physician Assistant; Family Provider Internal Medicine; PCP Internal Medicine
DX: R41.0 Disorientation, unspecified (principal); F12.90 Cannabis use, unspecified, uncomplicated; R11.10 Vomiting, unspecified; I10 Essential (primary) hypertension; Z20.822 Contact with and (suspected) exposure to COVID-19
CPT/HCPCS: 36415; 70450; 71045; 80053; 80305; 81003; 81015; 83605; 83690; 84145; 85025; 87040; 87635; 93005; 93010; 96360; 96361; 99284; C9803

== ENCOUNTER 2021-06-30 13:22 | Inpatient (IN) | payer OTHER, MEDICAID, SELFPAY ==
[2021-05-09 12:47] VITALS: BMI 32.6
[2021-06-30] VITALS (16 sets, daily range): BP systolic 150–176; BP diastolic 70–106; PULSE 56–86; RESP 11–30; TEMP 36.3–36.7; O2SAT 97–100; BMI 30.1
--- NOTE | 2021-06-30 13:36 | ED.AMS ---
HPI - Altered Mental Status General Chief Complaint: Neuro Symptoms/Deficit Stated Complaint: Alterer Mental Status Time Seen by Provider: 06/30/21 13:32 History of Present Illness HPI narrative: 55-year-old male with history of liver cancer, hepatitis-C, transplant liver, arthritis, hypertension, obesity presenting with altered mental status. He has a caregiver and lives in an .. He has been more confused over the last 1 week. He was actually seen and evaluated here on June 24 determined not to meet admission criteria and discharged home. According to caregiver he has become more and more confused. Now in the emergency department should he is really not redirectable. Demanding that he get up to use the restroom does not seems steady on his feet. He is alert to person and birthday. He is not able to answer many questions he does not really follow commands. Currently quite obsessed about using the restroom. Bladder scan was attempted it only showed about 7 mL but difficult to say if that is accurate or not. Related Data Home Medications Medication Instructions Recorded Confirmed allopurinol 100 mg tablet 100 mg PO DAILY 01/14/20 05/09/21 cyclosporine modified 25 mg capsule 25 mg PO BID 01/14/20 05/09/21 duloxetine 20 mg capsule,delayed 20 mg PO DAILY 01/14/20 05/09/21 release (Cymbalta) fentanyl 25 mcg/hr transdermal See Rx Instructions .ROUTE .COMPLEX 01/14/20 05/09/21 patch (Duragesic) gabapentin 300 mg capsule 300 mg PO BID 01/14/20 05/09/21 hydroxyzine pamoate 25 mg capsule 25 mg PO BEDTIME PRN 01/14/20 05/09/21 (Vistaril) lidocaine 5 % topical patch 1 patch TOPICAL DAILY 01/14/20 05/09/21 (Lidoderm) mycophenolate mofetil 500 mg 500 mg PO BID 01/14/20 05/09/21 tablet (CellCept) ondansetron HCl 4 mg tablet 4 mg PO Q8H PRN 01/14/20 05/09/21 (Zofran) pyridoxine (vitamin B6) 100 mg 100 mg PO DAILY 01/14/20 05/09/21 tablet quetiapine 25 mg tablet (Seroquel) 25 mg PO BEDTIME 01/14/20 05/09/21 ursodiol 300 mg capsule 300 mg PO BID 01/14/20 05/09/21 vitamin B complex-vitamin C-folic 1 tab PO DAILY 01/14/20 05/09/21 acid 0.8 mg tablet (Kellie-Ramila) furosemide 20 mg tablet 20 mg PO DAILY 07/26/20 04/27/21 rifaximin 550 mg tablet (Xifaxan) 550 mg PO BID 09/20/20 05/09/21 metoprolol succinate 25 mg 25 mg PO DAILY 01/25/21 05/09/21 tablet,extended release 24 hr tamsulosin 0.4 mg capsule 0.4 mg PO BEDTIME 04/27/21 05/09/21 Previous Rx's Medication Instructions Recorded ondansetron 4 mg disintegrating 4 mg PO TID-QID PRN #10 tab 05/14/20 tablet pantoprazole 40 mg tablet,delayed 40 mg PO DAILY #30 tab 05/14/20 release (Protonix) hydromorphone 4 mg tablet 4 mg PO Q6H PRN #30 tab 09/24/20 acetaminophen 325 mg capsule 650 mg PO Q4-6H PRN #0 cap 09/29/20 (Tylenol) cyclobenzaprine 10 mg tablet 10 mg PO Q8H PRN #0 tab 09/29/20 naloxone 4 mg/actuation nasal 1 spray INTRANASAL PER PKG DIR 30 09/29/20 spray (Narcan) Days #1 ea acetaminophen 325 mg tablet 650 mg PO TID #90 tab 05/11/21 aspirin 81 mg tablet,delayed 81 mg PO BID #90 tab 05/11/21 release hydroxyzine pamoate 25 mg capsule 25 mg PO BEDTIME PRN #60 cap 05/11/21 oxycodone 10 mg tablet 10 mg PO Q3HR PRN #60 tab 05/11/21 Allergies Allergy/AdvReac Type Severity Reaction Status Date / Time adhesive tape Allergy Severe Paper Verified 06/24/21 11:02 tape causes big sores doxylamine [From NyQuil] Allergy Severe Seizure Verified 06/24/21 11:02 venom-honey bee Allergy Severe Wheezing, Verified 06/24/21 11:02 [BEE VENOM (HONEY BEE)] throat closing pseudoephedrine Allergy Pt does Verified 06/24/21 11:02 not recall codeine AdvReac Severe Vomiting Verified 06/24/21 11:02 dextromethorphan AdvReac Severe Seizure Verified 06/24/21 11:02 NSAIDS (Non-Steroidal AdvReac Severe Abdominal Verified 06/24/21 11:02 Anti-Inflamma Pain copper AdvReac Intermediate Soaks Verified 06/24/21 11:02 into my body and hurts my jaw and joints morphine AdvReac Intermediate Vomiting Verified 06/24/21 11:02 oxycodone AdvReac Intermediate Vomiting Verified 06/24/21 11:02 tizanidine AdvReac Unknown Pt does Verified 06/24/21 11:02 not recall Review of Systems Review of Systems ROS Unobtainable: Unobtainable due to mental condition Patient History Medical History Cirrhosis of liver CKD (chronic kidney disease) Compression fracture Depression Former smoker GERD (gastroesophageal reflux disease) Gout Hepatitis C (~2011) History of vertebral compression fracture Hypertension Immunosuppression Liver cancer Medical marijuana use GUILLE (obstructive sleep apnea) Osteoporosis PAC (premature atrial contraction) Pain management contract agreement Paroxysmal atrial fibrillation PVC (premature ventricular contraction) Thrombocytopenia Surgical History H/O right wrist surgery History of biliary duct stent placement (01/2013) History of open reduction and internal fixation (ORIF) procedure (09/22/20) History of removal of retained hardware (01/25/21) History of right hip replacement Hx of appendectomy (~1979) Hx of cholecystectomy (~2003) Hx of elbow surgery (~2003) Hx of elbow surgery (~2007) Hx of fusion of cervical spine Hx of hernia repair Hx of shoulder surgery (~2012) Hx of tonsillectomy (~1969) Liver transplant recipient (11/24/11) Presence of left artificial elbow joint Family History Mother Renal failure Father Diabetes mellitus Congestive heart failure Social History household members: caregiver and none Smoking Status: Former smoker alcohol intake: current Smoking Status: Former smoker tobacco type: cigarettes alcohol intake frequency: a few times a month Alcohol type: hard liquor Substance Use Type: marijuana Exam Initial Vital Signs Initial Vital Signs: Vital Signs Temperature 98.1 F 06/30/21 13:22 Pulse Rate 86 06/30/21 13:22 Respiratory Rate 20 06/30/21 13:22 Blood Pressure 175/86 H 06/30/21 13:22 Pulse Oximetry 97 06/30/21 13:22 GENERAL: Alert aggressive male trying to get out of bed HEENT: Head atraumatic,EOMI, pupils reactive, face symmetric, [moist] mucous membranes CARDIOVASCULAR: Regular rate and rhythm without murmurs, rubs or gallops. RESPIRATORY: Breath sounds equal bilaterally, no wheezes rales or rhonchi. ABDOMEN: Soft, nontender. Normoactive bowel sounds all 4 quadrants. No guarding or rebound. EXTREMITIES: Normal range of motion, no clubbing or edema. Neurovascularly intact NEUROLOGICAL: Alert and oriented x2. weak is moving all extremities SKIN: Warm, dry, no laceration, no petechiae, no rashes or lesions. Procedures Procedural Sedation Consent signed: No Indication: diagnostic imaging procedure Ketamine dose (mg): 450 Course Orders Ordered: ED Orders 06/30/21 13:37 CT head/brain wo con Stat XR chest 1V Stat 06/30/21 13:44 Acetaminophen Stat Comprehensive Metabolic Panel Stat Ethanol (ETOH) Stat Lactate (Lactic Acid) Stat Procalcitonin Stat Prothrombin Time INR Stat Salicylate Stat Thyroid Stimulating Hormone Stat Troponin & CK Cardiac Panel Stat 06/30/21 14:25 Blood Culture Stat Complete Blood Count AUTO DIFF Stat Urinalysis and Microscopic Stat Urine Drug Screen, Rapid Stat 06/30/21 15:13 VBG [Venous Blood Gas] Stat 06/30/21 15:17 Ammonia (NH3) Stat 06/30/21 16:19 COVID19 - ADMIT (WATER MAIN PIPE LAYER swab/PCR) Stat Sodium Chloride (Normal Saline 0.9%) 1,000 mls @ 150 mls/hr IV CONT JUNIOR Last Admin: 06/30/21 17:34 Dose: Not Given Documented by: YDAY Discontinued Medications Lactulose 200 gm/ Sterile (Water 700 ml) 0 gm VA NOW ONE Stop: 06/30/21 16:43 Last Admin: 06/30/21 17:33 Dose: Not Given Documented by: YDAY Ketamine HCl (Ketamine 500 Mg/5 Ml Inj) 450 mg IM NOW ONE Stop: 06/30/21 14:11 Last Admin: 06/30/21 14:15 Dose: 450 mg Documented by: ATAYLOR Lactulose (Lactulose 20 Gm/30 Ml Solution) 20 gm PO NOW ONE Stop: 06/30/21 16:02 Last Admin: 06/30/21 17:32 Dose: Not Given Documented by: ATAYLOR Lorazepam (Lorazepam 2 Mg/Ml Inj) 2 mg IV NOW ONE Stop: 06/30/21 15:35 Last Admin: 06/30/21 15:39 Dose: 2 mg Documented by: KBROTEM Vital Signs Vital signs: Vital Signs - 8 hr 06/30/21 13:22 06/30/21 14:30 06/30/21 15:18 Temperature 98.1 F Pulse Rate 86 68 69 Respiratory Rate 20 18 28 H Blood Pressure 175/86 H Pulse Oximetry 97 98 06/30/21 15:23 06/30/21 15:30 06/30/21 15:31 Temperature Pulse Rate 76 Respiratory Rate 30 H Blood Pressure 175/90 H 176/106 H Pulse Oximetry 98 06/30/21 15:45 06/30/21 16:00 06/30/21 16:15 Temperature Pulse Rate 68 66 65 Respiratory Rate 17 19 16 Blood Pressure 165/92 H 152/70 H 159/77 H Pulse Oximetry 97 98 99 06/30/21 16:30 06/30/21 16:45 Temperature Pulse Rate 63 62 Respiratory Rate 11 L 12 Blood Pressure 158/86 H 150/77 H Pulse Oximetry 99 97 MDM - Altered Mental Status Lab Data Result diagrams: 06/30/21 14:25 06/30/21 13:44 Labs: Lab Results 06/30/21 06/30/21 06/30/21 Range/Units 13:44 13:44 13:44 WBC (4.5-11.0) X10^3/uL RBC (4.5-5.9) X10^6/uL Hgb (13.5-17.5) g/dL Hct (41-53) % MCV (80-100) fL MCH (26-34) PG MCHC (30-36) % RDW (11.6-14.8) % Plt Count (150-400) X10^3/uL Neut % (Auto) (50-75) % Lymph % (Auto) (25-40) % M[place]racken % (Auto) (3-14) % Eos % (Auto) (2-4) % Baso % (Auto) (0-2) % Neut # (Auto) (0187-0057) /uL Lymph # (Auto) (7327-9297) /uL [place]rack[place] # (Auto) (0-900) /uL Eos # (Auto) (0-450) /uL Baso # (Auto) (0-100) /uL PT (10.1-12.7) SECONDS INR (0.9-1.3) VBG pH (7.33-7.43) VBG pCO2 (45-50) mmHg VBG pO2 (35-45) mmHg VBG HCO3 (23-28) mmol/L VBG Total CO2 (24-29) mmol/L VBG O2 Saturation (70-75) % VBG Base Excess (0-4) mmol/L Sodium 136 L (137-145) mmol/L Potassium 4.4 (3.4-5.1) mmol/L Chloride 104 (98-107) mmol/L Carbon Dioxide 27 (22-32) mmol/L BUN 38 H (9-20) mg/dL Creatinine 2.54 H (0.66-1.25) mg/dL Estimated GFR 26.3 L (>60) mL/min BUN/Creatinine Ratio 15.0 (6-22) Glucose 118 H (70-100) mg/dL Lactate 1.5 (0.7-2.1) mmol/L Calcium 9.2 (8.4-10.2) mg/dL Total Bilirubin 1.2 (0.2-1.3) mg/dL AST 66 H (17-59) IU/L ALT 33 (<50) IU/L Alkaline Phosphatase 285 H (38-126) U/L Ammonia (9-30) umol/L Total Creatine Kinase 46 L (55-170) U/L CK-MB (CK-2) TNP CK-MB (CK-2) Rel Index TNP Troponin I < 0.012 (0.01-0.034) ng/mL Total Protein 6.1 L (6.3-8.2) g/dL Albumin 2.9 L (3.5-5.0) g/dL Globulin 3.2 (1.7-4.1) g/dL Albumin/Globulin Ratio 0.9 L (1.0-2.8) Procalcitonin 0.10 (<0.5) ng/mL TSH 1.51 (0.47-4.68) uIU/mL Urine Color Urine Appearance Urine pH (4.5-8.0) Ur Specific [place] (1.000-1.035) Urine Protein (Negative) Urine Glucose (UA) (Negative) g/dL Urine Ketones (NEGATIVE) Urine Occult Blood (Negative) Urine Nitrate (Negative) Urine Bilirubin (NEGATIVE) Urine Urobilinogen (0.2) E.U./dL Ur Leukocyte Esterase (NEGATIVE) Urine RBC (0-5/HPF) Urine WBC (0-5/HPF) Urine Bacteria (None) Ur Culture Indicated? Salicylates < 1.0 (<20) mg/dL U Opiates 300ng/mL cut (Negative) Ur Oxycodone Screen (Negative) Urine Methadone Screen (Negative) Acetaminophen < 10 L (10-30) ug/mL Ur Barbiturates Screen (Negative) U Tricyclic Antidepress (Negative) Ur Phencyclidine Scrn (Negative) Ur Amphetamines Screen (Negative) U Methamphetamines Scrn (Negative) Ur MDMA Scrn (Ecstasy) (Negative) U Benzodiazepines Scrn (Negative) Urine Cocaine Screen (Negative) U Marijuana (THC) Screen (Negative) Ethyl Alcohol < 10 ( - 10) mg/dL SARS-CoV-2 (PCR) (Negative) 06/30/21 06/30/21 06/30/21 Range/Units 13:44 14:25 14:25 WBC 7.5 (4.5-11.0) X10^3/uL RBC 3.98 L (4.5-5.9) X10^6/uL Hgb 13.1 L (13.5-17.5) g/dL Hct 40.0 L (41-53) % MCV 100.4 H D (80-100) fL MCH 32.9 (26-34) PG MCHC 32.7 (30-36) % RDW 15.8 H (11.6-14.8) % Plt Count 128 L (150-400) X10^3/uL Neut % (Auto) 43.2 L (50-75) % Lymph % (Auto) 44.5 H (25-40) % Mccracken % (Auto) 9.2 (3-14) % Eos % (Auto) 1.9 L (2-4) % Baso % (Auto) 1.2 (0-2) % Neut # (Auto) 3300 (5856-1301) /uL Lymph # (Auto) 3400 (1135-6475) /uL [place]rack[place] # (Auto) 700 (0-900) /uL Eos # (Auto) 100 (0-450) /uL Baso # (Auto) 100 (0-100) /uL PT 11.7 (10.1-12.7) SECONDS INR 1.0 (0.9-1.3) VBG pH (7.33-7.43) VBG pCO2 (45-50) mmHg VBG pO2 (35-45) mmHg VBG HCO3 (23-28) mmol/L VBG Total CO2 (24-29) mmol/L VBG O2 Saturation (70-75) % VBG Base Excess (0-4) mmol/L Sodium (137-145) mmol/L Potassium (3.4-5.1) mmol/L Chloride (98-107) mmol/L Carbon Dioxide (22-32) mmol/L BUN (9-20) mg/dL Creatinine (0.66-1.25) mg/dL Estimated GFR (>60) mL/min BUN/Creatinine Ratio (6-22) Glucose (70-100) mg/dL Lactate (0.7-2.1) mmol/L Calcium (8.4-10.2) mg/dL Total Bilirubin (0.2-1.3) mg/dL AST (17-59) IU/L ALT (<50) IU/L Alkaline Phosphatase (38-126) U/L Ammonia (9-30) umol/L Total Creatine Kinase (55-170) U/L CK-MB (CK-2) CK-MB (CK-2) Rel Index Troponin I (0.01-0.034) ng/mL Total Protein (6.3-8.2) g/dL Albumin (3.5-5.0) g/dL Globulin (1.7-4.1) g/dL Albumin/Globulin Ratio (1.0-2.8) Procalcitonin (<0.5) ng/mL TSH (0.47-4.68) uIU/mL Urine Color Yellow Urine Appearance Clear Urine pH 6.5 (4.5-8.0) Ur Specific [place] <=1.005 (1.000-1.035) Urine Protein 1+ H (Negative) Urine Glucose (UA) Negative (Negative) g/dL Urine Ketones Negative (NEGATIVE) Urine Occult Blood Trace-intact (Negative) Urine Nitrate Negative (Negative) Urine Bilirubin Negative (NEGATIVE) Urine Urobilinogen 1.0 (0.2) E.U./dL Ur Leukocyte Esterase Negative (NEGATIVE) Urine RBC 1-5/hpf (0-5/HPF) Urine WBC 1-5/hpf (0-5/HPF) Urine Bacteria None seen (None) Ur Culture Indicated? Cult not indicated Salicylates (<20) mg/dL U Opiates 300ng/mL cut (Negative) Ur Oxycodone Screen (Negative) Urine Methadone Screen (Negative) Acetaminophen (10-30) ug/mL Ur Barbiturates Screen (Negative) U Tricyclic Antidepress (Negative) Ur Phencyclidine Scrn (Negative) Ur Amphetamines Screen (Negative) U Methamphetamines Scrn (Negative) Ur MDMA Scrn (Ecstasy) (Negative) U Benzodiazepines Scrn (Negative) Urine Cocaine Screen (Negative) U Marijuana (THC) Screen (Negative) Ethyl Alcohol ( - 10) mg/dL SARS-CoV-2 (PCR) (Negative) 06/30/21 06/30/21 06/30/21 Range/Units 14:25 15:13 15:17 WBC (4.5-11.0) X10^3/uL RBC (4.5-5.9) X10^6/uL Hgb (13.5-17.5) g/dL Hct (41-53) % MCV (80-100) fL MCH (26-34) PG MCHC (30-36) % RDW (11.6-14.8) % Plt Count (150-400) X10^3/uL Neut % (Auto) (50-75) % Lymph % (Auto) (25-40) % Mccracken % (Auto) (3-14) % Eos % (Auto) (2-4) % Baso % (Auto) (0-2) % Neut # (Auto) (5735-6846) /uL Lymph # (Auto) (3811-9001) /uL [place]rack[place] # (Auto) (0-900) /uL Eos # (Auto) (0-450) /uL Baso # (Auto) (0-100) /uL PT (10.1-12.7) SECONDS INR (0.9-1.3) VBG pH 7.46 H (7.33-7.43) VBG pCO2 36.4 L (45-50) mmHg VBG pO2 110 H (35-45) mmHg VBG HCO3 26 (23-28) mmol/L VBG Total CO2 27 (24-29) mmol/L VBG O2 Saturation 99 H (70-75) % VBG Base Excess 2.0 (0-4) mmol/L Sodium (137-145) mmol/L Potassium (3.4-5.1) mmol/L Chloride (98-107) mmol/L Carbon Dioxide (22-32) mmol/L BUN (9-20) mg/dL Creatinine (0.66-1.25) mg/dL Estimated GFR (>60) mL/min BUN/Creatinine Ratio (6-22) Glucose (70-100) mg/dL Lactate (0.7-2.1) mmol/L Calcium (8.4-10.2) mg/dL Total Bilirubin (0.2-1.3) mg/dL AST (17-59) IU/L ALT (<50) IU/L Alkaline Phosphatase (38-126) U/L Ammonia 226 H (9-30) umol/L Total Creatine Kinase (55-170) U/L CK-MB (CK-2) CK-MB (CK-2) Rel Index Troponin I (0.01-0.034) ng/mL Total Protein (6.3-8.2) g/dL Albumin (3.5-5.0) g/dL Globulin (1.7-4.1) g/dL Albumin/Globulin Ratio (1.0-2.8) Procalcitonin (<0.5) ng/mL TSH (0.47-4.68) uIU/mL Urine Color Urine Appearance Urine pH (4.5-8.0) Ur Specific [place] (1.000-1.035) Urine Protein (Negative) Urine Glucose (UA) (Negative) g/dL Urine Ketones (NEGATIVE) Urine Occult Blood (Negative) Urine Nitrate (Negative) Urine Bilirubin (NEGATIVE) Urine Urobilinogen (0.2) E.U./dL Ur Leukocyte Esterase (NEGATIVE) Urine RBC (0-5/HPF) Urine WBC (0-5/HPF) Urine Bacteria (None) Ur Culture Indicated? Salicylates (<20) mg/dL U Opiates 300ng/mL cut Negative (Negative) Ur Oxycodone Screen Negative (Negative) Urine Methadone Screen Negative (Negative) Acetaminophen (10-30) ug/mL Ur Barbiturates Screen Negative (Negative) U Tricyclic Antidepress Negative (Negative) Ur Phencyclidine Scrn Negative (Negative) Ur Amphetamines Screen Negative (Negative) U Methamphetamines Scrn Negative (Negative) Ur MDMA Scrn (Ecstasy) Negative (Negative) U Benzodiazepines Scrn Negative (Negative) Urine Cocaine Screen Negative (Negative) U Marijuana (THC) Screen Positive H (Negative) Ethyl Alcohol ( - 10) mg/dL SARS-CoV-2 (PCR) (Negative) 06/30/21 Range/Units 16:19 WBC (4.5-11.0) X10^3/uL RBC (4.5-5.9) X10^6/uL Hgb (13.5-17.5) g/dL Hct (41-53) % MCV (80-100) fL MCH (26-34) PG MCHC (30-36) % RDW (11.6-14.8) % Plt Count (150-400) X10^3/uL Neut % (Auto) (50-75) % Lymph % (Auto) (25-40) % [place] % (Auto) (3-14) % Eos % (Auto) (2-4) % Baso % (Auto) (0-2) % Neut # (Auto) (0261-2918) /uL Lymph # (Auto) (3054-8069) /uL [place] # (Auto) (0-900) /uL Eos # (Auto) (0-450) /uL Baso # (Auto) (0-100) /uL PT (10.1-12.7) SECONDS INR (0.9-1.3) VBG pH (7.33-7.43) VBG pCO2 (45-50) mmHg VBG pO2 (35-45) mmHg VBG HCO3 (23-28) mmol/L VBG Total CO2 (24-29) mmol/L VBG O2 Saturation (70-75) % VBG Base Excess (0-4) mmol/L Sodium (137-145) mmol/L Potassium (3.4-5.1) mmol/L Chloride (98-107) mmol/L Carbon Dioxide (22-32) mmol/L BUN (9-20) mg/dL Creatinine (0.66-1.25) mg/dL Estimated GFR (>60) mL/min BUN/Creatinine Ratio (6-22) Glucose (70-100) mg/dL Lactate (0.7-2.1) mmol/L Calcium (8.4-10.2) mg/dL Total Bilirubin (0.2-1.3) mg/dL AST (17-59) IU/L ALT (<50) IU/L Alkaline Phosphatase (38-126) U/L Ammonia (9-30) umol/L Total Creatine Kinase (55-170) U/L CK-MB (CK-2) CK-MB (CK-2) Rel Index Troponin I (0.01-0.034) ng/mL Total Protein (6.3-8.2) g/dL Albumin (3.5-5.0) g/dL Globulin (1.7-4.1) g/dL Albumin/Globulin Ratio (1.0-2.8) Procalcitonin (<0.5) ng/mL TSH (0.47-4.68) uIU/mL Urine Color Urine Appearance Urine pH (4.5-8.0) Ur Specific [place] (1.000-1.035) Urine Protein (Negative) Urine Glucose (UA) (Negative) g/dL Urine Ketones (NEGATIVE) Urine Occult Blood (Negative) Urine Nitrate (Negative) Urine Bilirubin (NEGATIVE) Urine Urobilinogen (0.2) E.U./dL Ur Leukocyte Esterase (NEGATIVE) Urine RBC (0-5/HPF) Urine WBC (0-5/HPF) Urine Bacteria (None) Ur Culture Indicated? Salicylates (<20) mg/dL U Opiates 300ng/mL cut (Negative) Ur Oxycodone Screen (Negative) Urine Methadone Screen (Negative) Acetaminophen (10-30) ug/mL Ur Barbiturates Screen (Negative) U Tricyclic Antidepress (Negative) Ur Phencyclidine Scrn (Negative) Ur Amphetamines Screen (Negative) U Methamphetamines Scrn (Negative) Ur MDMA Scrn (Ecstasy) (Negative) U Benzodiazepines Scrn (Negative) Urine Cocaine Screen (Negative) U Marijuana (THC) Screen (Negative) Ethyl Alcohol ( - 10) mg/dL SARS-CoV-2 (PCR) Negative (Negative) Imaging Data CT scan - head: Radiologist's Impression: PROCEDURE:? CT HEAD/BRAIN WO CON ? INDICATIONS:? ALTERED MENTAL STATUS ? TECHNIQUE:? Noncontrast 4.5 mm thick angled axial sections acquired from the foramen magnum to the vertex, with coronal and sagittal reformats.? For radiation dose reduction, the following was used:? automated exposure control, adjustment of mA and/or kV according to patient size.? ? COMPARISON:? [facility], CT, CT HEAD/BRAIN WO CON, 06/24/2021, 14:13. ? FINDINGS:? Image quality:? Some images are degraded by motion artifact.? ? CSF spaces:? Basal cisterns are patent.? No extra-axial fluid collections.? The ventricles are symmetric in size and shape.? ? Brain:? No intracranial bleeds or masses.? There is cerebral volume loss for age, with resultant ventricular and sulcal prominence.? There are periventricular and deep white matter chronic small vessel ischemic changes.? ? Skull and face:? Calvarium and visualized facial bones appear intact, without suspicious lesions.? ? Sinuses:? Visualized sinuses and mastoids are clear.? ? IMPRESSION:? No acute intracranial abnormality. ? ? Dictated by: Fabien Alvares M.D. on 06/30/2021 at 14:48 ? ? Chest x-ray: Radiologist's Impression: PROCEDURE:? XR CHEST 1V ? INDICATIONS:? ALTERED MENTAL STATUS ? TECHNIQUE:? One view of the chest was acquired.? ? COMPARISON:? [facility], CR, XR CHEST 1V, 06/24/2021, 11:20. ? FINDINGS:? ? Surgical changes and devices:? Left shoulder arthroplasty.? Partially visualized cervical spine fixation hardware.? ? Lungs and pleura:? Cephalization of pulmonary vasculature and increased interstitial prominence concerning for CHF.? No pleural effusions or pneumothorax.? ? Mediastinum:? Mediastinal contours appear normal.? Heart is mildly enlarged. ? Bones and chest wall:? No suspicious bony lesions.? Overlying soft tissues appear unremarkable.? ? IMPRESSION:? Mild cardiomegaly with pulmonary vascular congestion and interstitial prominence concerning for CHF. ? ? Dictated by: Josefina Riddle MD, PhD on 06/30/2021 at 15:33 ? ? ECG Data Interpretation: Normal sinus rhythm rate 65 VA interval 154 QRS [address] changes or T-wave inversions MDM Narrative Medical decision making narrative: Patient was not redirectable seem to be confused quite obsessed with going to the bathroom he was offered many alternatives including urinal bedside commode he was clearly not steady on his feet and not safe to walk to the bathroom. He was not able to follow any other commands or talk about anything else. He started becoming aggressive towards staff. He was given ketamine IM so that we could get labs and head CT and make sure that he is medically cleared and safe and determine his cause of altered mental status. Fortunately head CT was negative. Labs did show elevated ammonia level of 220. This may be the cause of his altered mental status. When he 1st arrives he is actually somnolent and then became a bit more aggressive. Other blood work does not show any sign of UTI. His creatinine seems to be at baseline at 2.54 and remains unchanged from previous. As ketamine wears off he is given 1 dose of Ativan because he is trying to pull out IVs and becoming danger to himself. This does calm him. He is given 1 dose of lactulose rectally. VBG does not show any acidosis lactic acid is within normal limits. At this time patient does not seem to be at his baseline mental status blood work reveals elevated ammonia level probable hepatic encephalopathy. Dr. Burgos updated patient's symptoms test results and accepts the Discharge Plan Departure Patient Disposition: Admitted As Inpatient Clinical Impression: Encephalopathy, hepatic Admit Date/Time: 06/30/21 16:53 Admit Provider: Thad Burgos
--- NOTE | 2021-06-30 13:37 | DI.CT.S_ITS ---
PROCEDURE: CT HEAD/BRAIN WO CON INDICATIONS: ALTERED MENTAL STATUS TECHNIQUE: Noncontrast 4.5 mm thick angled axial sections acquired from the foramen magnum to the vertex, with coronal and sagittal reformats. For radiation dose reduction, the following was used: automated exposure control, adjustment of mA and/or kV according to patient size. COMPARISON: [facility], CT, CT HEAD/BRAIN WO CON, 06/24/2021, 14:13. FINDINGS: Image quality: Some images are degraded by motion artifact. CSF spaces: Basal cisterns are patent. No extra-axial fluid collections. The ventricles are symmetric in size and shape. Brain: No intracranial bleeds or masses. There is cerebral volume loss for age, with resultant ventricular and sulcal prominence. There are periventricular and deep white matter chronic small vessel ischemic changes. Skull and face: Calvarium and visualized facial bones appear intact, without suspicious lesions. Sinuses: Visualized sinuses and mastoids are clear. IMPRESSION: No acute intracranial abnormality. Dictated by: Fabien Alvares M.D. on 06/30/2021 at 14:48 Approved by: Fabien Alvares M.D. on 06/30/2021 at 14:51
--- NOTE | 2021-06-30 13:37 | DI.RAD.S_ITS ---
PROCEDURE: XR CHEST 1V INDICATIONS: ALTERED MENTAL STATUS TECHNIQUE: One view of the chest was acquired. COMPARISON: [facility], CR, XR CHEST 1V, 06/24/2021, 11:20. FINDINGS: Surgical changes and devices: Left shoulder arthroplasty. Partially visualized cervical spine fixation hardware. Lungs and pleura: Cephalization of pulmonary vasculature and increased interstitial prominence concerning for CHF. No pleural effusions or pneumothorax. Mediastinum: Mediastinal contours appear normal. Heart is mildly enlarged. Bones and chest wall: No suspicious bony lesions. Overlying soft tissues appear unremarkable. IMPRESSION: Mild cardiomegaly with pulmonary vascular congestion and interstitial prominence concerning for CHF. Dictated by: Josefina Riddle MD, PhD on 06/30/2021 at 15:33 Approved by: Josefina Riddle MD, PhD on 06/30/2021 at 15:34
[2021-06-30 14:13] LABS: Lactate (Lactic Acid) 1.5 mmol/L (0.7-2.1)
[2021-06-30 14:15] LABS: Acetaminophen < 10 ug/mL (10-30); Alanine Aminotransferase 33 IU/L (<50); Albumin 2.9 g/dL (3.5-5.0); Albumin Globulin Ratio 0.9 (1.0-2.8); Alkaline Phosphatase 285 U/L (38-126); Aspartate Aminotransferase 66 IU/L (17-59); Bilirubin Total 1.2 mg/dL (0.2-1.3); Blood Urea Nitrogen 38 mg/dL (9-20); Calcium 9.2 mg/dL (8.4-10.2); Carbon Dioxide 27 mmol/L (22-32); Chloride 104 mmol/L (98-107); Creatine Kinase 46 U/L (55-170); Estimated Glomerular Filt Rate 26.3 mL/min (>60); Ethanol (ETOH) < 10 mg/dL; Globulin 3.2 g/dL (1.7-4.1); Glucose 118 mg/dL (70-100); HEMOLYSIS < 15 (0-50); Potassium 4.4 mmol/L (3.4-5.1); Salicylate < 1.0 mg/dL (<20); Sodium 136 mmol/L (137-145); Total Protein 6.1 g/dL (6.3-8.2)
[2021-06-30] MEDS: KETAMINE 500 MG/5 ML INJ 450 MG IM (14:15)
[2021-06-30 14:26] LABS: Troponin I < 0.012 ng/mL (0.01-0.034)
[2021-06-30 14:34] LABS: Add Manual Diff / Slide Review NO; Basophils Absolute Auto 100 /uL (0-100); Basophils Percent Auto 1.2 % (0-2); Eosinophils Absolute Auto 100 /uL (0-450); Eosinophils Percent Auto 1.9 % (2-4); Hemoglobin 13.1 g/dL (13.5-17.5); Lymphocytes Absolute Auto 3400 /uL (1100-4500); Lymphocytes Percent Auto 44.5 % (25-40); Mean Corpuscular HGB Conc 32.7 % (30-36); Mean Corpuscular Hemoglobin 32.9 PG (26-34); Mean Corpuscular Volume 100.4 fL (80-100); Monocytes Absolute Auto 700 /uL (0-900); Monocytes Percent Auto 9.2 % (3-14); Neutrophils Absolute Auto 3300 /uL (1500-7000); Neutrophils Percent Auto 43.2 % (50-75); Platelet Count 128 X10^3/uL (150-400); Red Blood Cell Count 3.98 X10^6/uL (4.5-5.9); Red Cell Distribution Width 15.8 % (11.6-14.8); White Blood Cell Count 7.5 X10^3/uL (4.5-11.0)
[2021-06-30 14:45] LABS: Thyroid Stimulating Hormone 1.51 uIU/mL (0.47-4.68)
[2021-06-30] MEDS: ONDANSETRON 4 MG/2 ML INJ (14:50)
[2021-06-30 14:52] LABS: Appearance Urine UA CLEAR; Bilirubin Urine UA NEGATIVE (NEGATIVE); Color Urine UA YELLOW; Glucose Urine UA NEGATIVE (Negative); Ketones Urine UA NEGATIVE (NEGATIVE); Leukocyte Esterase Urine UA NEGATIVE (NEGATIVE); Nitrite Urine UA NEGATIVE (Negative); Occult Blood Urine UA TRACE-INTACT (Negative); Protein Urine UA 1+ (Negative); Specific Gravity Urine UA <=1.005 (1.000-1.035); pH Urine UA 6.5 (4.5-8.0)
[2021-06-30 14:55] LABS: UR Morphine/Opiate cutoff 300 Negative (Negative); Ur Creatinine Normal (Normal); Ur Specific Gravity Normal (Normal); Urine Amphetamines Negative (Negative); Urine Barbiturates Negative (Negative); Urine Benzodiazepines Negative (Negative); Urine Cocaine Negative (Negative); Urine MDMA Negative (Negative); Urine Methadone Negative (Negative); Urine Methamphetamines Negative (Negative); Urine Oxycodone Negative (Negative); Urine Phencyclidine Negative (Negative); Urine Tetrahydrocannabinol Positive (Negative); Urine Tricyclic Antidepressant Negative (Negative); Urine pH Normal (Normal)
[2021-06-30 15:37] LABS: Ammonia (NH3) 226 umol/L (9-30)
[2021-06-30] MEDS: LORazepam 2 MG/ML INJ IV (15:39)
[2021-06-30 15:53] LABS: Bacteria Urine None Seen; Culture Indicated Urine Cult Not Indicated; RBC Urine 1-5/HPF (0-5/HPF); WBC Urine 1-5/HPF (0-5/HPF)
--- NOTE | 2021-06-30 16:04 | RT ---
Assisted Rn to Ct scan, airway protection. Pt on 3lpm nc and no distress noted. Pt was applied Jaw thrust, airway patent and bag mask unit at [facility]. Pt returned to ED without incident. Rn at bedside
--- NOTE | 2021-06-30 16:22 | PC.NURSE ---
At approximately 1400, pt became increasingly agitated and aggressive. Repeatedly yelling I need to go to the bathroom, pt determined to be unsteady so urinal and bed shirley offered but pt continued to try to climb out of bed and thrash at healthcare workers. Attempts made to redirect pt, but pt unwilling to follow commands or receive proper treatment. Several staff at bedside for pt safety including Dr. Akhtar, orders as documented received, RT and RN at bedside. Shortly after medication administration, pt voided then transported to DI with RT and RN present. Pt continually monitored.
[2021-06-30 16:54] LABS: Prothrombin Time 11.7 SECONDS (10.1-12.7)
[2021-06-30 17:17] LABS: COVID19 - ADMIT (NP swab/PCR) Negative (Negative)
[2021-06-30 17:23] LABS: HCO3 VBG 26 mmol/L (23-28); Oxygen Saturation VBG 99 % (70-75); PCO2 VBG 36.4 mmHg (45-50); PO2 VBG 110 mmHg (35-45); Total CO2 VBG 27 mmol/L (24-29); pH VBG 7.46 (7.33-7.43)
--- NOTE | 2021-06-30 17:28 | PC.NURSE ---
Day shift: Pt on unit from ED at approx 1730. Pt asleep and not able to answer questions at this time. BP elevated 165/95. RA 97%. HR 62. Afebrile. IV on rt hand is wrapped in coban. Per ED RN Pt confused and became aggressive and agitated. Pt was then given Ketamine and Ativan in ED. Pt had incontinent BM upon arrival to AC unit this evening. No Bradley in place. Pt in room across from RN station (view room). Bed alrm is on. Door to room is open. Pt high fall risk at this time. Dr Burgos aware Pt is here now. Dr Burgos also said that the GA lactolose did not need to be given at this time. WIll continue to monitor Pt.
--- NOTE | 2021-06-30 18:23 | PC.NURSE ---
Day shift: Dr Burgos assessed Pt at approx 1815. Pt remains sedated.
--- NOTE | 2021-06-30 19:49 | P.HP_ITS ---
History of Present Illness History of Present Illness Chief complaint: Alterer Mental Status Narrative: 55yo male with a hx of hepatitis C progressing to liver failure status post liver transplant, CKD stage III, hypertension and GERD that presented to the ER with altered mental status. The patient is somnolent on my examination of him, and unable to engage in conversation, likely due to receiving IV Ativan 2 mg and Ketamine in the ER when he became combative with staff. Therefore, I am unable to acquire a history from him. History has been collected via chart review. It appears that he was evaluated recently for altered mental status, with no organic pathology having been found. There also seems to be a history of liver cancer, likely secondary to a hx of hepatitis C, which was reportedly cured with antiviral medication before he then underwent a liver transplant. It is unclear if he has an active EtOH abuse history or a remote one, if he uses illicit drugs other than marijuana, as history cannot be gathered from the patient. Patient History Medical History Cirrhosis of liver CKD (chronic kidney disease) Compression fracture Depression Former smoker GERD (gastroesophageal reflux disease) Gout Hepatitis C (~2011) History of vertebral compression fracture Hypertension Immunosuppression Liver cancer Medical marijuana use GUILLE (obstructive sleep apnea) Osteoporosis PAC (premature atrial contraction) Pain management contract agreement Paroxysmal atrial fibrillation PVC (premature ventricular contraction) Thrombocytopenia Surgical History H/O right wrist surgery History of biliary duct stent placement (01/2013) History of open reduction and internal fixation (ORIF) procedure (09/22/20) History of removal of retained hardware (01/25/21) History of right hip replacement Hx of appendectomy (~1979) Hx of cholecystectomy (~2003) Hx of elbow surgery (~2003) Hx of elbow surgery (~2007) Hx of fusion of cervical spine Hx of hernia repair Hx of shoulder surgery (~2012) Hx of tonsillectomy (~1969) Liver transplant recipient (11/24/11) Presence of left artificial elbow joint Family & Social History Family History Mother Renal failure Father Diabetes mellitus Congestive heart failure Social History: household members caregiver,none Tobacco & Substance use: Tobacco type cigarettes Smoking Status Former smoker alcohol intake current alcohol intake frequency a few times a month Substance Use Type marijuana Meds Home Medications and Allergies Home Medications Medication Instructions Recorded Confirmed Type allopurinol 100 mg tablet 100 mg PO DAILY 01/14/20 05/09/21 History cyclosporine modified 25 mg capsule 25 mg PO BID 01/14/20 05/09/21 History duloxetine 20 mg capsule,delayed 20 mg PO DAILY 01/14/20 05/09/21 History release (Cymbalta) fentanyl 25 mcg/hr transdermal See Rx Instructions .ROUTE .COMPLEX 01/14/20 05/09/21 History patch (Duragesic) gabapentin 300 mg capsule 300 mg PO BID 01/14/20 05/09/21 History hydroxyzine pamoate 25 mg capsule 25 mg PO BEDTIME PRN 01/14/20 05/09/21 History (Vistaril) lidocaine 5 % topical patch 1 patch TOPICAL DAILY 01/14/20 05/09/21 History (Lidoderm) mycophenolate mofetil 500 mg 500 mg PO BID 01/14/20 05/09/21 History tablet (CellCept) ondansetron HCl 4 mg tablet 4 mg PO Q8H PRN 01/14/20 05/09/21 History (Zofran) pyridoxine (vitamin B6) 100 mg 100 mg PO DAILY 01/14/20 05/09/21 History tablet quetiapine 25 mg tablet (Seroquel) 25 mg PO BEDTIME 01/14/20 05/09/21 History ursodiol 300 mg capsule 300 mg PO BID 01/14/20 05/09/21 History vitamin B complex-vitamin C-folic 1 tab PO DAILY 01/14/20 05/09/21 History acid 0.8 mg tablet (Kellie-Ramila) ondansetron 4 mg disintegrating 4 mg PO TID-QID PRN #10 tab 05/14/20 05/09/21 Rx tablet pantoprazole 40 mg tablet,delayed 40 mg PO DAILY #30 tab 05/14/20 05/09/21 Rx release (Protonix) furosemide 20 mg tablet 20 mg PO DAILY 07/26/20 04/27/21 History rifaximin 550 mg tablet (Xifaxan) 550 mg PO BID 09/20/20 05/09/21 History hydromorphone 4 mg tablet 4 mg PO Q6H PRN #30 tab 09/24/20 05/09/21 Rx acetaminophen 325 mg capsule 650 mg PO Q4-6H PRN #0 cap 09/29/20 05/09/21 Rx (Tylenol) cyclobenzaprine 10 mg tablet 10 mg PO Q8H PRN #0 tab 09/29/20 05/09/21 Rx naloxone 4 mg/actuation nasal 1 spray INTRANASAL PER PKG DIR 30 09/29/20 04/27/21 Rx spray (Narcan) Days #1 ea metoprolol succinate 25 mg 25 mg PO DAILY 01/25/21 05/09/21 History tablet,extended release 24 hr tamsulosin 0.4 mg capsule 0.4 mg PO BEDTIME 04/27/21 05/09/21 History acetaminophen 325 mg tablet 650 mg PO TID #90 tab 05/11/21 Rx aspirin 81 mg tablet,delayed 81 mg PO BID #90 tab 05/11/21 Rx release hydroxyzine pamoate 25 mg capsule 25 mg PO BEDTIME PRN #60 cap 05/11/21 Rx oxycodone 10 mg tablet 10 mg PO Q3HR PRN #60 tab 05/11/21 Rx Allergies Allergy/AdvReac Type Severity Reaction Status Date / Time adhesive tape Allergy Severe Paper Verified 06/24/21 11:02 tape causes big sores doxylamine [From NyQuil] Allergy Severe Seizure Verified 06/24/21 11:02 venom-honey bee Allergy Severe Wheezing, Verified 06/24/21 11:02 [BEE VENOM (HONEY BEE)] throat closing pseudoephedrine Allergy Pt does Verified 06/24/21 11:02 not recall codeine AdvReac Severe Vomiting Verified 06/24/21 11:02 dextromethorphan AdvReac Severe Seizure Verified 06/24/21 11:02 NSAIDS (Non-Steroidal AdvReac Severe Abdominal Verified 06/24/21 11:02 Anti-Inflamma Pain copper AdvReac Intermediate Soaks Verified 06/24/21 11:02 into my body and hurts my jaw and joints morphine AdvReac Intermediate Vomiting Verified 06/24/21 11:02 oxycodone AdvReac Intermediate Vomiting Verified 06/24/21 11:02 tizanidine AdvReac Unknown Pt does Verified 06/24/21 11:02 not recall Review of Systems Review of Systems Narrative: Unable to acquire a ROS since patient is somnolent, as per HPI. Exam Vital Signs (past 8 hours): - 06/30/21 13:22 06/30/21 14:30 06/30/21 15:18 Temperature 98.1 F Pulse Rate 86 68 69 Respiratory Rate 20 18 28 H Blood Pressure 175/86 H Pulse Oximetry 97 98 06/30/21 15:23 06/30/21 15:30 06/30/21 15:31 Temperature Pulse Rate 76 Respiratory Rate 30 H Blood Pressure 175/90 H 176/106 H Pulse Oximetry 98 06/30/21 15:45 06/30/21 16:00 06/30/21 16:15 Temperature Pulse Rate 68 66 65 Respiratory Rate 17 19 16 Blood Pressure 165/92 H 152/70 H 159/77 H Pulse Oximetry 97 98 99 06/30/21 16:30 06/30/21 16:45 06/30/21 17:00 Temperature Pulse Rate 63 62 65 Respiratory Rate 11 L 12 23 Blood Pressure 158/86 H 150/77 H 172/85 H Pulse Oximetry 99 97 98 06/30/21 17:30 06/30/21 17:34 Temperature 97.8 F Pulse Rate 62 62 Respiratory Rate 18 18 Blood Pressure 167/96 H 165/95 H Pulse Oximetry 97 Oxygen Delivery Method Room Air Oxygen Flow Rate 0 Const Other: Patient laying in bed upon my entering the room, sleeping and snoring. He is responsive to name, is able to open his eyes when asked, but is unable to answer questions, as per HPI. Eyes Other: No scleral icterus appreciated. Pupils PERRLA. Neck Other: No carotid bruits appreciated. Resp Other: Clear to auscultation to the anterior lung root. Cardio Other: Regular rate and rhythm. S1 and S2 heart sounds auscultated with no extra heart sounds or murmurs appreciated. No peripheral edema noted. GI Other: Large, well-healed horizontal abdominal scar appreciated across abd. Soft, non- distended, non-tender. Bowel sounds present. No ascites appreciated. Skin Other: No jaundice appreciated. No almaz skin lesions appreciated grossly. Neuro Other: Unable to assess CN's due to patient's somnolence. He is arousable, responsive to his name, but is unable to answer questions secondary to somnolence. Objective Labs Result Diagrams: 06/30/21 14:25 06/30/21 13:44 Labs: Laboratory Results - last 24 hr 06/30/21 06/30/21 06/30/21 13:44 13:44 13:44 WBC RBC Hgb Hct MCV MCH MCHC RDW Plt Count Neut % (Auto) Lymph % (Auto) [place] % (Auto) Eos % (Auto) Baso % (Auto) Neut # (Auto) Lymph # (Auto) [place] # (Auto) Eos # (Auto) Baso # (Auto) PT INR VBG pH VBG pCO2 VBG pO2 VBG HCO3 VBG Total CO2 VBG O2 Saturation VBG Base Excess Sodium 136 L Potassium 4.4 Chloride 104 Carbon Dioxide 27 BUN 38 H Creatinine 2.54 H Estimated GFR 26.3 L BUN/Creatinine Ratio 15.0 Glucose 118 H Lactate 1.5 Calcium 9.2 Total Bilirubin 1.2 AST 66 H ALT 33 Alkaline Phosphatase 285 H Ammonia Total Creatine Kinase 46 L CK-MB (CK-2) TNP CK-MB (CK-2) Rel Index TNP Troponin I < 0.012 Total Protein 6.1 L Albumin 2.9 L Globulin 3.2 Albumin/Globulin Ratio 0.9 L Procalcitonin 0.10 TSH 1.51 Urine Color Urine Appearance Urine pH Ur Specific [place] Urine Protein Urine Glucose (UA) Urine Ketones Urine Occult Blood Urine Nitrate Urine Bilirubin Urine Urobilinogen Ur Leukocyte Esterase Urine RBC Urine WBC Urine Bacteria Ur Culture Indicated? Salicylates < 1.0 U Opiates 300ng/mL cut Ur Oxycodone Screen Urine Methadone Screen Acetaminophen < 10 L Ur Barbiturates Screen U Tricyclic Antidepress Ur Phencyclidine Scrn Ur Amphetamines Screen U Methamphetamines Scrn Ur MDMA Scrn (Ecstasy) U Benzodiazepines Scrn Urine Cocaine Screen U Marijuana (THC) Screen Ethyl Alcohol < 10 SARS-CoV-2 (PCR) 06/30/21 06/30/21 06/30/21 13:44 14:25 14:25 WBC 7.5 RBC 3.98 L Hgb 13.1 L Hct 40.0 L MCV 100.4 H D MCH 32.9 MCHC 32.7 RDW 15.8 H Plt Count 128 L Neut % (Auto) 43.2 L Lymph % (Auto) 44.5 H [place] % (Auto) 9.2 Eos % (Auto) 1.9 L Baso % (Auto) 1.2 Neut # (Auto) 3300 Lymph # (Auto) 3400 [place] # (Auto) 700 Eos # (Auto) 100 Baso # (Auto) 100 PT 11.7 INR 1.0 VBG pH VBG pCO2 VBG pO2 VBG HCO3 VBG Total CO2 VBG O2 Saturation VBG Base Excess Sodium Potassium Chloride Carbon Dioxide BUN Creatinine Estimated GFR BUN/Creatinine Ratio Glucose Lactate Calcium Total Bilirubin AST ALT Alkaline Phosphatase Ammonia Total Creatine Kinase CK-MB (CK-2) CK-MB (CK-2) Rel Index Troponin I Total Protein Albumin Globulin Albumin/Globulin Ratio Procalcitonin TSH Urine Color Yellow Urine Appearance Clear Urine pH 6.5 Ur Specific [place] <=1.005 Urine Protein 1+ H Urine Glucose (UA) Negative Urine Ketones Negative Urine Occult Blood Trace-intact Urine Nitrate Negative Urine Bilirubin Negative Urine Urobilinogen 1.0 Ur Leukocyte Esterase Negative Urine RBC 1-5/hpf Urine WBC 1-5/hpf Urine Bacteria None seen Ur Culture Indicated? Cult not indicated Salicylates U Opiates 300ng/mL cut Ur Oxycodone Screen Urine Methadone Screen Acetaminophen Ur Barbiturates Screen U Tricyclic Antidepress Ur Phencyclidine Scrn Ur Amphetamines Screen U Methamphetamines Scrn Ur MDMA Scrn (Ecstasy) U Benzodiazepines Scrn Urine Cocaine Screen U Marijuana (THC) Screen Ethyl Alcohol SARS-CoV-2 (PCR) 06/30/21 06/30/21 06/30/21 14:25 15:13 15:17 WBC RBC Hgb Hct MCV MCH MCHC RDW Plt Count Neut % (Auto) Lymph % (Auto) [place] % (Auto) Eos % (Auto) Baso % (Auto) Neut # (Auto) Lymph # (Auto) [place] # (Auto) Eos # (Auto) Baso # (Auto) PT INR VBG pH 7.46 H VBG pCO2 36.4 L VBG pO2 110 H VBG HCO3 26 VBG Total CO2 27 VBG O2 Saturation 99 H VBG Base Excess 2.0 Sodium Potassium Chloride Carbon Dioxide BUN Creatinine Estimated GFR BUN/Creatinine Ratio Glucose Lactate Calcium Total Bilirubin AST ALT Alkaline Phosphatase Ammonia 226 H Total Creatine Kinase CK-MB (CK-2) CK-MB (CK-2) Rel Index Troponin I Total Protein Albumin Globulin Albumin/Globulin Ratio Procalcitonin TSH Urine Color Urine Appearance Urine pH Ur Specific [place] Urine Protein Urine Glucose (UA) Urine Ketones Urine Occult Blood Urine Nitrate Urine Bilirubin Urine Urobilinogen Ur Leukocyte Esterase Urine RBC Urine WBC Urine Bacteria Ur Culture Indicated? Salicylates U Opiates 300ng/mL cut Negative Ur Oxycodone Screen Negative Urine Methadone Screen Negative Acetaminophen Ur Barbiturates Screen Negative U Tricyclic Antidepress Negative Ur Phencyclidine Scrn Negative Ur Amphetamines Screen Negative U Methamphetamines Scrn Negative Ur MDMA Scrn (Ecstasy) Negative U Benzodiazepines Scrn Negative Urine Cocaine Screen Negative U Marijuana (THC) Screen Positive H Ethyl Alcohol SARS-CoV-2 (PCR) 06/30/21 16:19 WBC RBC Hgb Hct MCV MCH MCHC RDW Plt Count Neut % (Auto) Lymph % (Auto) [place] % (Auto) Eos % (Auto) Baso % (Auto) Neut # (Auto) Lymph # (Auto) [place] # (Auto) Eos # (Auto) Baso # (Auto) PT INR VBG pH VBG pCO2 VBG pO2 VBG HCO3 VBG Total CO2 VBG O2 Saturation VBG Base Excess Sodium Potassium Chloride Carbon Dioxide BUN Creatinine Estimated GFR BUN/Creatinine Ratio Glucose Lactate Calcium Total Bilirubin AST ALT Alkaline Phosphatase Ammonia Total Creatine Kinase CK-MB (CK-2) CK-MB (CK-2) Rel Index Troponin I Total Protein Albumin Globulin Albumin/Globulin Ratio Procalcitonin TSH Urine Color Urine Appearance Urine pH Ur Specific [place] Urine Protein Urine Glucose (UA) Urine Ketones Urine Occult Blood Urine Nitrate Urine Bilirubin Urine Urobilinogen Ur Leukocyte Esterase Urine RBC Urine WBC Urine Bacteria Ur Culture Indicated? Salicylates U Opiates 300ng/mL cut Ur Oxycodone Screen Urine Methadone Screen Acetaminophen Ur Barbiturates Screen U Tricyclic Antidepress Ur Phencyclidine Scrn Ur Amphetamines Screen U Methamphetamines Scrn Ur MDMA Scrn (Ecstasy) U Benzodiazepines Scrn Urine Cocaine Screen U Marijuana (THC) Screen Ethyl Alcohol SARS-CoV-2 (PCR) Negative Assessment & Plan Assessment & Plan narrative: Assessment: 1. Somnolence, likely medication-induced 2. Reported hx of hepatitis C, status post pharmacologic cure 3. Reported hx of hepatocellular carcinoma, status post liver transplant 4. Reported hx of CKD 5. Reported hx of GERD Plan: 1. This likely occurred after receiving IV Ativan 2 mg and Ketamine in the ER. Therefore, I am unable to gather a history from the patient for his reported presenting complaint of altered mental status. 2. As per problem 1. Gathered via chart review. 3. As per problem 1. Gathered via chart review. 4. As per problem 1. Gathered via chart review. 5. As per problem 1. Gathered via chart review. VTE prophylaxis: Heparin 5000 units bid Disposition: Home, once clinically stable Time Spent With Patient Critical Care time: I spent a total of [] minutes of critical care time on this patient's care today; this time is exclusive of procedural time.
[2021-06-30] MEDS: HEPARIN 5,000 UNIT/ML VIAL 5000 UNIT SUBCUT (22:20)
[2021-07-01] VITALS (8 sets, daily range): BP systolic 123–156; BP diastolic 70–82; PULSE 58–97; RESP 11–18; TEMP 36.2–38.1; O2SAT 95–97
[2021-07-01] MEDS: LACTULOSE 20 GM/30 ML SOLUTION 30 GM PO ×4 (03:41→20:07)
--- NOTE | 2021-07-01 09:33 | PC.NURSE ---
Day shift: Pt sleeping at thist sheila. Bed alarm is on and door to room is open. VS WNL. RA 96%. No s/s of pain or discomfort. Will continue to monitor.
[2021-07-01 11:08] LABS: Add Manual Diff / Slide Review NO; Basophils Absolute Auto 100 /uL (0-100); Basophils Percent Auto 1.2 % (0-2); Eosinophils Absolute Auto 100 /uL (0-450); Hematocrit 36.9 % (41-53); Hemoglobin 12.2 g/dL (13.5-17.5); Lymphocytes Absolute Auto 3500 /uL (1100-4500); Lymphocytes Percent Auto 54.3 % (25-40); Mean Corpuscular HGB Conc 32.9 % (30-36); Mean Corpuscular Hemoglobin 32.8 PG (26-34); Mean Corpuscular Volume 99.6 fL (80-100); Monocytes Absolute Auto 700 /uL (0-900); Monocytes Percent Auto 10.1 % (3-14); Neutrophils Absolute Auto 2100 /uL (1500-7000); Neutrophils Percent Auto 32.4 % (50-75); Platelet Count 127 X10^3/uL (150-400); Red Blood Cell Count 3.71 X10^6/uL (4.5-5.9); Red Cell Distribution Width 15.9 % (11.6-14.8); White Blood Cell Count 6.5 X10^3/uL (4.5-11.0)
[2021-07-01] MEDS: HEPARIN 5,000 UNIT/ML VIAL 5000 UNIT SUBCUT ×2 (11:09→20:07)
[2021-07-01] MEDS: CYCLOSPORINE, MODIFIED 25 MG CAPSULE PO ×2 (11:40→20:07)
[2021-07-01] MEDS: MYCOPHENOLATE MOFETIL 500 MG TABLET PO ×2 (11:41→20:07)
[2021-07-01 12:03] LABS: BUN Creatinine Ratio 18.3 (6-22); Blood Urea Nitrogen 43 mg/dL (9-20); Calcium 8.6 mg/dL (8.4-10.2); Carbon Dioxide 25 mmol/L (22-32); Chloride 109 mmol/L (98-107); Estimated Glomerular Filt Rate 28.7 mL/min (>60); Glucose 82 mg/dL (70-100); HEMOLYSIS < 15 (0-50); Magnesium 2.2 mg/dL (1.6-2.3); Phosphorous 3.4 mg/dL (2.5-4.5); Sodium 139 mmol/L (137-145)
--- NOTE | 2021-07-01 14:40 | PM.PN.1 ---
Subjective Subjective Interval history: Patient is awake and arousable this morning. He is able to answer questions appropriately, although he is groggy. He is able to say the year he received his liver transplant, where he lives, the custom decorating consultant that he lives with, and that he has not been taking rifaximin at home as prescribed. Exam Vital Signs (past 8 hours): - 07/01/21 08:10 07/01/21 09:31 07/01/21 11:05 Temperature 98.6 F Pulse Rate 67 Respiratory Rate 11 L Blood Pressure 125/76 Pulse Oximetry 95 96 95 Oxygen Delivery Method Room Air Oxygen Flow Rate 0 Const Other: Patient sleeping in bed comfortably upon my entering the room, in no apparent acute distress. Eyes Other: No scleral icterus appreciated. Resp Other: Diminished breath sounds to the anterior lung root. No adventitious breath sounds appreciated. Cardio Other: Regular rate and rhythm. S1 and S2 heart sounds auscultated. No extra heart sounds or murmurs appreciated. No peripheral edema noted. GI Other: Soft, non-distended, non-tender. Bowel sounds present. Skin Other: No jaundice appreciated over body habitus. Extrem Other: Palpable and steady dorsalis pedis pulses bilaterally. Objective Labs Result Diagrams: 07/01/21 10:30 07/01/21 10:30 Labs: Laboratory Results - last 24 hr 06/30/21 06/30/21 06/30/21 13:44 13:44 14:25 WBC RBC Hgb Hct MCV MCH MCHC RDW Plt Count Neut % (Auto) Lymph % (Auto) [place] % (Auto) Eos % (Auto) Baso % (Auto) Neut # (Auto) Lymph # (Auto) [place] # (Auto) Eos # (Auto) Baso # (Auto) PT 11.7 INR 1.0 VBG pH VBG pCO2 VBG pO2 VBG HCO3 VBG Total CO2 VBG O2 Saturation VBG Base Excess Sodium Potassium Chloride Carbon Dioxide BUN Creatinine Estimated GFR BUN/Creatinine Ratio Glucose Calcium Phosphorus Magnesium Ammonia TSH 1.51 Urine Color Yellow Urine Appearance Clear Urine pH 6.5 Ur Specific [place] <=1.005 Urine Protein 1+ H Urine Glucose (UA) Negative Urine Ketones Negative Urine Occult Blood Trace-intact Urine Nitrate Negative Urine Bilirubin Negative Urine Urobilinogen 1.0 Ur Leukocyte Esterase Negative Urine RBC 1-5/hpf Urine WBC 1-5/hpf Urine Bacteria None seen Ur Culture Indicated? Cult not indicated U Opiates 300ng/mL cut Ur Oxycodone Screen Urine Methadone Screen Ur Barbiturates Screen U Tricyclic Antidepress Ur Phencyclidine Scrn Ur Amphetamines Screen U Methamphetamines Scrn Ur MDMA Scrn (Ecstasy) U Benzodiazepines Scrn Urine Cocaine Screen U Marijuana (THC) Screen SARS-CoV-2 (PCR) 06/30/21 06/30/21 06/30/21 14:25 15:13 15:17 WBC RBC Hgb Hct MCV MCH MCHC RDW Plt Count Neut % (Auto) Lymph % (Auto) [place] % (Auto) Eos % (Auto) Baso % (Auto) Neut # (Auto) Lymph # (Auto) [place] # (Auto) Eos # (Auto) Baso # (Auto) PT INR VBG pH 7.46 H VBG pCO2 36.4 L VBG pO2 110 H VBG HCO3 26 VBG Total CO2 27 VBG O2 Saturation 99 H VBG Base Excess 2.0 Sodium Potassium Chloride Carbon Dioxide BUN Creatinine Estimated GFR BUN/Creatinine Ratio Glucose Calcium Phosphorus Magnesium Ammonia 226 H TSH Urine Color Urine Appearance Urine pH Ur Specific [place] Urine Protein Urine Glucose (UA) Urine Ketones Urine Occult Blood Urine Nitrate Urine Bilirubin Urine Urobilinogen Ur Leukocyte Esterase Urine RBC Urine WBC Urine Bacteria Ur Culture Indicated? U Opiates 300ng/mL cut Negative Ur Oxycodone Screen Negative Urine Methadone Screen Negative Ur Barbiturates Screen Negative U Tricyclic Antidepress Negative Ur Phencyclidine Scrn Negative Ur Amphetamines Screen Negative U Methamphetamines Scrn Negative Ur MDMA Scrn (Ecstasy) Negative U Benzodiazepines Scrn Negative Urine Cocaine Screen Negative U Marijuana (THC) Screen Positive H SARS-CoV-2 (PCR) 06/30/21 07/01/21 07/01/21 16:19 10:30 10:30 WBC 6.5 RBC 3.71 L Hgb 12.2 L Hct 36.9 L MCV 99.6 MCH 32.8 MCHC 32.9 RDW 15.9 H Plt Count 127 L Neut % (Auto) 32.4 L Lymph % (Auto) 54.3 H [place] % (Auto) 10.1 Eos % (Auto) 2.0 Baso % (Auto) 1.2 Neut # (Auto) 2100 Lymph # (Auto) 3500 [place] # (Auto) 700 Eos # (Auto) 100 Baso # (Auto) 100 PT INR VBG pH VBG pCO2 VBG pO2 VBG HCO3 VBG Total CO2 VBG O2 Saturation VBG Base Excess Sodium 139 Potassium 4.0 Chloride 109 H Carbon Dioxide 25 BUN 43 H Creatinine 2.35 H Estimated GFR 28.7 L BUN/Creatinine Ratio 18.3 Glucose 82 Calcium 8.6 Phosphorus 3.4 Magnesium 2.2 Ammonia TSH Urine Color Urine Appearance Urine pH Ur Specific [place] Urine Protein Urine Glucose (UA) Urine Ketones Urine Occult Blood Urine Nitrate Urine Bilirubin Urine Urobilinogen Ur Leukocyte Esterase Urine RBC Urine WBC Urine Bacteria Ur Culture Indicated? U Opiates 300ng/mL cut Ur Oxycodone Screen Urine Methadone Screen Ur Barbiturates Screen U Tricyclic Antidepress Ur Phencyclidine Scrn Ur Amphetamines Screen U Methamphetamines Scrn Ur MDMA Scrn (Ecstasy) U Benzodiazepines Scrn Urine Cocaine Screen U Marijuana (THC) Screen SARS-CoV-2 (PCR) Negative PFSH Medical History Cirrhosis of liver CKD (chronic kidney disease) Compression fracture Depression Former smoker GERD (gastroesophageal reflux disease) Gout Hepatitis C (~2011) History of vertebral compression fracture Hypertension Immunosuppression Liver cancer Medical marijuana use GUILLE (obstructive sleep apnea) Osteoporosis PAC (premature atrial contraction) Pain management contract agreement Paroxysmal atrial fibrillation PVC (premature ventricular contraction) Thrombocytopenia Surgical History H/O right wrist surgery History of biliary duct stent placement (01/2013) History of open reduction and internal fixation (ORIF) procedure (09/22/20) History of removal of retained hardware (01/25/21) History of right hip replacement Hx of appendectomy (~1979) Hx of cholecystectomy (~2003) Hx of elbow surgery (~2003) Hx of elbow surgery (~2007) Hx of fusion of cervical spine Hx of hernia repair Hx of shoulder surgery (~2012) Hx of tonsillectomy (~1969) Liver transplant recipient (11/24/11) Presence of left artificial elbow joint Family History Mother Renal failure Father Diabetes mellitus Congestive heart failure Social History household members: caregiver and none Smoking Status: Former smoker alcohol intake: current Assessment & Plan Assessment & Plan narrative: Assessment: 1. Hyperammonemia, likely due to hepatic impairment causing decreased NH3 clearance, leading to hypersomnolence 2. Hx of liver transplant, currently on immunosuppresive medications 3. Polypharmacy 4. Hx of hepatitis C of [place] liver, status post pharmacologic cure before liver transplant 5. Hx of hepatocellular carcinoma, status post liver transplant 6. Hx of CKD 7. Hx of GERD 8. Hx of marijuana use Plan: 1. This likely occurred secondary to medication non-adherence at home. Patient admits to not taking rifaximin, as prescribed. Will start lactulose 30 mg tid, along with resuming home rifaximin 550 mg bid. 2. Patient reports this occurred in 2011. He denies any EtOH involvement. Denies EtOH active use. Will resume home cyclosporine, mycophenolate. 3. Medication list has opiates, benzodiazepenes, SSRI's. This is likely contributing to problem 1. Given patient's presenting complaint of encephalopathy, these meds are not continued inpatient. 4. As per pt. He does not recall which antiviral medicine he took 5. Likely occurred due to problem 4. No evidence of recurrence clinically or on recent imaging. 6. Cr has remained stable. Avoiding nephrotoxic medications. 7. Patient taking Protonix at home. 8. Patient admits to ingesting edibles. I extensively counseled the patient that given his medical history, he should not continued to do this outpatient. VTE prophylaxis: Heparin 5000 units bid Disposition: Home, once clinically stable Time Spent With Patient Critical Care time: I spent a total of [] minutes of critical care time on this patient's care today; this time is exclusive of procedural time.
--- NOTE | 2021-07-01 15:09 | CM.DANOTE ---
DCP Brief Assessment: patient is a 55 yr old male who was admitted for altered mental status. CM attempted to meet with patient but patient was sleeping and not easily abusable at this time. Per patients EMR patient lives in an RV alone but has JUSTICE caregiver Hank- she helps the patient out with cleaning, laundry and meals. patient currently has 166 hours a month and was previously DC from the hospital in April with R TKA. patient is fully covid vaccinated and had [facility] DC Patient also has a limehouse worker through [facility] named Walter Martin his phone number is [phone]. Cm called and left him a message to get some infromation about the patient. patient also has a sister Leigh [phone]- cm attempted to call patients sister with no answer and LVM to call CM back. I: [facility] and medicaid P: DC plan to be determined once patient is more awake and able to participate with DC planning. More then likely home with private caregiver and possible HH if needed. Gaby Barros RNbusiness leader Discharge Planning/Care Management Discharge Assessment Start: 07/01/21 15:02 Freq: Status: Active Protocol: Document 07/01/21 15:02 (Rec: 07/01/21 15:09 [id number]) Discharge Planning Assessment Assigned Office Support Associate Gaby Barros RN Case Manger DPOA/Assigned Designee Name Leigh Guidry (Sister) Contact Information [phone] Advance Directives? Yes Advance Directives on File Yes History Provided By Medical Record Has Patient been admitted in last 30 Yes days? Prior Living Arrangements RV Comment pt resides in an RV at [facility], lives alone, Pt has JUSTICE caregiver Household Members caregiver,none Comment Patient connected up with Walter Martin, Leaf Coverer, through [facility] Type of transporation used prior to Relies on Others admit Independent with ADL's No Is patient alert and oriented? No: Sedated Needs Assistance With Grooming,Meal Prep,Home Chores / Shopping Caregiver for Another No Comment Stated that he used to have a cane, someone stole it. Patient/Family Preference Home with Home Health Comment [facility] is difficult for SNF placement Discharge Plan Home with Home Health Transportation Arrangement [facility] to transport at d/c Referrals Initiated Home Health Additional Comment [facility] was given before and more then likely will be started again- If patient plan is home with home health Yes : Has signed face to face form been completed? Whiteboard Updated in Patient Room with Yes name and ext. # of Office Support Associate Review Status In Process Next Review Type Continued Stay Review
--- NOTE | 2021-07-01 16:22 | PC.NURSE ---
Day shift: This writer editor talked with Walter hill/ Julia Padilla and he did not know what meds Pt is currently taking. Unable to update Pt's home med list at this time. Pt not A&O enough at this time.
[2021-07-01] MEDS: TAMSULOSIN 0.4 MG CAPSULE PO (20:07)
[2021-07-01] MEDS: ursodioL 300 MG CAPSULE PO (20:08)
[2021-07-01] MEDS: RIFAXIMIN 550 MG TABLET PO (20:08)
[2021-07-01] MEDS: QUETIAPINE 25 MG TABLET PO (23:24)
[2021-07-01] MEDS: HYDROMORPHONE 4 MG TABLET PO (23:24)
[2021-07-02] VITALS (8 sets, daily range): BP systolic 151–184; BP diastolic 85–98; PULSE 83–95; RESP 15–20; TEMP 36.4–37.9; O2SAT 96–97
[2021-07-02] MEDS: ONDANSETRON 4 MG ODT SL ×2 (00:09→22:34)
[2021-07-02 09:14] LABS: Add Manual Diff / Slide Review NO; Basophils Absolute Auto 200 /uL (0-100); Eosinophils Absolute Auto 100 /uL (0-450); Eosinophils Percent Auto 1.6 % (2-4); Hematocrit 39.8 % (41-53); Hemoglobin 12.9 g/dL (13.5-17.5); Lymphocytes Absolute Auto 2300 /uL (1100-4500); Lymphocytes Percent Auto 29.4 % (25-40); Mean Corpuscular HGB Conc 32.3 % (30-36); Mean Corpuscular Hemoglobin 32.8 PG (26-34); Mean Corpuscular Volume 101.5 fL (80-100); Monocytes Absolute Auto 400 /uL (0-900); Monocytes Percent Auto 5.1 % (3-14); Neutrophils Absolute Auto 4700 /uL (1500-7000); Neutrophils Percent Auto 61.9 % (50-75); Platelet Count 122 X10^3/uL (150-400); Red Blood Cell Count 3.92 X10^6/uL (4.5-5.9); Red Cell Distribution Width 16.3 % (11.6-14.8); White Blood Cell Count 7.6 X10^3/uL (4.5-11.0)
[2021-07-02 09:29] LABS: BUN Creatinine Ratio 14.9 (6-22); Blood Urea Nitrogen 40 mg/dL (9-20); Calcium 9.2 mg/dL (8.4-10.2); Carbon Dioxide 27 mmol/L (22-32); Chloride 105 mmol/L (98-107); Estimated Glomerular Filt Rate 24.6 mL/min (>60); Glucose 146 mg/dL (70-100); HEMOLYSIS < 15 (0-50); Magnesium 2.2 mg/dL (1.6-2.3); Phosphorous 3.4 mg/dL (2.5-4.5); Potassium 4.2 mmol/L (3.4-5.1); Sodium 137 mmol/L (137-145)
[2021-07-02] MEDS: LACTULOSE 20 GM/30 ML SOLUTION 30 GM PO ×2 (09:56→16:02)
[2021-07-02] MEDS: ursodioL 300 MG CAPSULE PO ×2 (09:58→20:40)
[2021-07-02] MEDS: MYCOPHENOLATE MOFETIL 500 MG TABLET PO ×2 (09:58→20:39)
[2021-07-02] MEDS: CYCLOSPORINE, MODIFIED 25 MG CAPSULE PO ×2 (09:58→20:40)
[2021-07-02] MEDS: HEPARIN 5,000 UNIT/ML VIAL 5000 UNIT SUBCUT ×2 (09:58→20:42)
[2021-07-02] MEDS: RIFAXIMIN 550 MG TABLET PO ×2 (09:58→20:39)
[2021-07-02] MEDS: HYDROMORPHONE 4 MG TABLET PO ×3 (10:11→22:34)
[2021-07-02 10:12] LABS: HIV 1 & 2 Ab/Ag 4th Gen Combo NEGATIVE (NEGATIVE)
--- NOTE | 2021-07-02 14:36 | PM.PN.1 ---
Subjective Subjective Date Patient Seen: 07/02/21 Interval history: He is seen today to follow-up his chronic kidney disease, hepatic encephalopathy, liver transplant and altered mental status. He looks quite weak and sleepy today. He says he is very thirsty and when I offer him the water at his bedside table he begins coughing. He is oriented x2 and has no memory of coming here. He thinks it is June 25. Exam Vital Signs (past 8 hours): - 07/02/21 08:57 07/02/21 10:11 07/02/21 10:13 Temperature 98.8 F Pulse Rate 94 H 83 Respiratory Rate 15 Blood Pressure 184/98 H Pulse Oximetry 96 97 97 Oxygen Delivery Method Room Air Oxygen Flow Rate 0 Narrative Exam Narrative: Alert and oriented to name and place but not to date. He begins coughing when he drinks water in front of me. Heart is regular rate and rhythm without murmur Lungs are clear to auscultation bilaterally Abdomen is soft bowel sounds positive and nontender Extremities have no ankle edema Objective Labs Result Diagrams: 07/02/21 08:30 07/02/21 08:30 Labs: Laboratory Results - last 24 hr 07/02/21 07/02/21 07/02/21 08:30 08:30 08:30 WBC 7.6 RBC 3.92 L Hgb 12.9 L Hct 39.8 L MCV 101.5 H MCH 32.8 MCHC 32.3 RDW 16.3 H Plt Count 122 L Neut % (Auto) 61.9 D Lymph % (Auto) 29.4 D [place] % (Auto) 5.1 Eos % (Auto) 1.6 L Baso % (Auto) 2.0 Neut # (Auto) 4700 Lymph # (Auto) 2300 [place] # (Auto) 400 Eos # (Auto) 100 Baso # (Auto) 200 H Sodium 137 Potassium 4.2 Chloride 105 Carbon Dioxide 27 BUN 40 H Creatinine 2.69 H Estimated GFR 24.6 L BUN/Creatinine Ratio 14.9 Glucose 146 H Calcium 9.2 Phosphorus 3.4 Magnesium 2.2 HIV 1&2 Ab/P24 Ag 4thGn Negative PFSH Medical History Cirrhosis of liver CKD (chronic kidney disease) Compression fracture Depression Former smoker GERD (gastroesophageal reflux disease) Gout Hepatitis C (~2011) History of vertebral compression fracture Hypertension Immunosuppression Liver cancer Medical marijuana use GUILLE (obstructive sleep apnea) Osteoporosis PAC (premature atrial contraction) Pain management contract agreement Paroxysmal atrial fibrillation PVC (premature ventricular contraction) Thrombocytopenia Surgical History H/O right wrist surgery History of biliary duct stent placement (01/2013) History of open reduction and internal fixation (ORIF) procedure (09/22/20) History of removal of retained hardware (01/25/21) History of right hip replacement Hx of appendectomy (~1979) Hx of cholecystectomy (~2003) Hx of elbow surgery (~2003) Hx of elbow surgery (~2007) Hx of fusion of cervical spine Hx of hernia repair Hx of shoulder surgery (~2012) Hx of tonsillectomy (~1969) Liver transplant recipient (11/24/11) Presence of left artificial elbow joint Family History Mother Renal failure Father Diabetes mellitus Congestive heart failure Social History household members: caregiver and none Smoking Status: Former smoker alcohol intake: current Assessment & Plan Assessment & Plan narrative: Assessment: 1. Hyperammonemia, likely due to hepatic impairment causing decreased NH3 clearance, leading to hypersomnolence 2. Hx of liver transplant, currently on immunosuppresive medications 3. Polypharmacy 4. Hx of hepatitis C of [place] liver, status post pharmacologic cure before liver transplant 5. Hx of hepatocellular carcinoma, status post liver transplant 6. Hx of CKD 7. Hx of GERD 8. Hx of marijuana use Plan: 1. This likely occurred secondary to medication non-adherence at home. Patient admits to not taking rifaximin, as prescribed. Continue lactulose 30 mg tid, along with rifaximin 550 mg bid. 2. Patient reports this occurred in 2011. He denies any EtOH involvement. Denies EtOH active use. Will resume home cyclosporine, mycophenolate. 3. Medication list has opiates, benzodiazepenes, SSRI's. This is likely contributing to problem 1. Given patient's presenting complaint of encephalopathy, these meds are not continued inpatient. 4. As per pt. He does not recall which antiviral medicine he took 5. Likely occurred due to problem 4. No evidence of recurrence clinically or on recent imaging. 6. Cr has remained stable. Avoiding nephrotoxic medications. 7. Patient taking Protonix at home. 8. Patient admits to ingesting edibles. I extensively counseled the patient that given his medical history, he should not continue to do this at home as an outpatient. VTE prophylaxis: Heparin 5000 units bid Disposition: Home, once clinically stable Time Spent With Patient Critical Care time: I spent a total of [] minutes of critical care time on this patient's care today; this time is exclusive of procedural time.
--- NOTE | 2021-07-02 14:38 | CM.DPC ---
Addendum entered by Lara Finley R.N. 07/02/21 15:05: Asked hospitalist, Dr. Dockery, if P.T/O.T. orders can be placed, and he gave permission to add. Placed orders. According to nurseCyndi, patient has exhibited no signs of agitation, but he has been sleeping most of the day. He was given Dilaudid for back pain earlier today. Will see how patient does with therapy. Can order home health, will need to get face to face signed. Original Note: DCP Cont: Discussed patient during team rounds. It was noted per hospitalist that patient is improving, and may possibly go home tomorrow. This product planner has attempted to speak to patient, but he has been sleeping. His meal tray is beside his bed. This patient is familiar with this product planner, due to prior admissions. Patient does reside in his RV here in [place] off of [facility]. He has JUSTICE cyanide case hardener, named Hank, who helps with some daily tasks. Patient has had [facility] before, according to product planner's note from yesterday. He may benefit with them again. Patient does not have current P.T. orders at this time. May need to discuss with nursing staff to see how patient has been ambulating. P: DCP to continue to follow. Patient could possibly go home tomorrow, may need home health. May ask for P.T. order as well. Lara Finley RN/Bottle Blowing Machine Tender
[2021-07-02] MEDS: QUETIAPINE 25 MG TABLET PO (20:41)
[2021-07-02] MEDS: TAMSULOSIN 0.4 MG CAPSULE PO (20:42)
[2021-07-03] VITALS (14 sets, daily range): BP systolic 126–178; BP diastolic 82–98; PULSE 82–117; RESP 16–28; TEMP 36.8–38.7; O2SAT 94–98
--- NOTE | 2021-07-03 03:43 | PC.NURSE ---
Addendum entered by Gemini Oneil R.N. 07/03/21 05:54: [facility] notified of elevated temp, due to patient history/diagnosis did not order tylenol. Continued with ice packs to under arms and cool washcloth to forehead. Temp decreased to 99.4. Original Note: @0245 pt uncomfortable in bed, felt warm, checked temp which was 100.3 F orally. Pt recently received tylenol, added icepacks to axillary and cold washcloth to forehead. Pt sleeping, checked temporal without washcloth for >5min which was 101.6 F
[2021-07-03] MEDS: METOPROLOL ER 25 MG TABLET PO (05:08)
[2021-07-03 06:10] LABS: Hematocrit 35.4 % (41-53); Hemoglobin 11.6 g/dL (13.5-17.5); Mean Corpuscular HGB Conc 32.8 % (30-36); Mean Corpuscular Hemoglobin 32.7 PG (26-34); Mean Corpuscular Volume 99.9 fL (80-100); Platelet Count 104 X10^3/uL (150-400); Red Blood Cell Count 3.54 X10^6/uL (4.5-5.9); Red Cell Distribution Width 15.9 % (11.6-14.8); White Blood Cell Count 12.4 X10^3/uL (4.5-11.0)
[2021-07-03 06:11] LABS: Add Manual Diff / Slide Review YES
[2021-07-03 06:14] LABS: BUN Creatinine Ratio 16.5 (6-22); Blood Urea Nitrogen 39 mg/dL (9-20); Calcium 8.4 mg/dL (8.4-10.2); Carbon Dioxide 24 mmol/L (22-32); Chloride 102 mmol/L (98-107); Estimated Glomerular Filt Rate 28.5 mL/min (>60); Glucose 103 mg/dL (70-100); HEMOLYSIS < 15 (0-50); Magnesium 1.9 mg/dL (1.6-2.3); Phosphorous 2.3 mg/dL (2.5-4.5); Potassium 4.1 mmol/L (3.4-5.1); Sodium 129 mmol/L (137-145)
[2021-07-03] MEDS: HYDROMORPHONE 4 MG TABLET PO ×2 (06:41→14:47)
[2021-07-03 06:49] LABS: Neutrophils Absolute Manual 7316 /uL (3000-5900); Total Cells Counted 100
[2021-07-03 06:50] LABS: Anisocytosis 1+
[2021-07-03] MEDS: CYCLOSPORINE, MODIFIED 25 MG CAPSULE PO ×2 (10:02→22:00)
[2021-07-03] MEDS: HEPARIN 5,000 UNIT/ML VIAL 5000 UNIT SUBCUT ×2 (10:02→22:00)
[2021-07-03] MEDS: MYCOPHENOLATE MOFETIL 500 MG TABLET PO ×2 (10:03→22:00)
[2021-07-03] MEDS: LACTULOSE 20 GM/30 ML SOLUTION 30 GM PO ×3 (10:03→22:00)
[2021-07-03] MEDS: ursodioL 300 MG CAPSULE PO ×2 (10:04→21:59)
[2021-07-03] MEDS: RIFAXIMIN 550 MG TABLET PO ×2 (10:04→22:00)
--- NOTE | 2021-07-03 11:08 | PT.IIE ---
Current Diagnoses Somnolence (06/30/21) Medical History (Last Reviewed 06/24/21 @ 13:59 by Kirk Dominguez PA-C) Cirrhosis of liver CKD (chronic kidney disease) Compression fracture Depression Former smoker GERD (gastroesophageal reflux disease) Gout Hepatitis C (~2011) History of vertebral compression fracture Hypertension Immunosuppression Liver cancer Medical marijuana use GUILEL (obstructive sleep apnea) Osteoporosis PAC (premature atrial contraction) Pain management contract agreement Paroxysmal atrial fibrillation PVC (premature ventricular contraction) Thrombocytopenia Physical Therapy Inpatient Evaluation/Re-Eval M1 PT/OT-IP Prior Functional Status Start: 07/03/21 08:51 Freq: NEEDED Status: Active Protocol: Document 07/03/21 11:08 DLM (Rec: 07/03/21 12:50 DLM [id number]) Medical Review Prior Functional Status Medical History Reviewed Yes Diet/Fluid Consistency Regular Communication WFL Mobility and Gait Independent without a device, has used a cane in the past as needed, right TKA 05/09/21 Activities of Daily Living and IADL's Independent with basic ADL's, has caregiver (Hank) who helps with laundry/housekeeping and getting him to his appointments Prior Functional Level (Other details) He has been attending out-pt PT with [facility] before this admission for right TKA. He has chronic back pain. Social History Household Members caregiver,none Living Arrangements RV Number of Floors (Floors) One Floor Number of Stairs To Enter/Railing? 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 M2 PT-IP Current Condition Start: 07/03/21 08:51 Freq: NEEDED Status: Active Protocol: Document 07/03/21 11:08 DLM (Rec: 07/03/21 12:50 DLM [id number]) Physical Therapy Current Condition Current Condition Evaluation Date 07/03/21 Treatment Diagnosis AMS, impaired gait and balance Onset Date 06/30/21 M3 PT-IP Subjective Start: 07/03/21 08:51 Freq: NEEDED Status: Active Protocol: Document 07/03/21 11:08 DLM (Rec: 07/03/21 12:50 DLM [id number]) Subjective Physical Therapy Visit Type Type Initial Evaluation Visit Start Time 10:45 Visit Stop Time 11:08 Total Visit Minutes 23 Number of VAMP MARKER Visits 0 Physical Therapy Visit Comments Patient Comments He is not aware of why he is in the hospital. Patient Goals He wants to go home Therapy Pain Assessment Pain When Pain Assessed During Mobility Pain Present Pain Present Pain Reported Location Back Intensity 8 Scale Used Numeric (0 - 10) Description Aching Pain Behaviors Facial Grimacing Pain Management Techniques Re-positioning M4 PT-IP Mobility and Gait Start: 07/03/21 08:51 Freq: NEEDED Status: Active Protocol: Document 07/03/21 11:08 DLM (Rec: 07/03/21 12:50 DLM [id number]) PT-Bed Mobility Assessment Rolling Level of Assist Independent Supine to Sit Supine to Sit Independent Sit to Supine Sit to Supine Independent Scooting Scooting to Edge of Bed Independent Scooting Up and Down in Bed Independent PT-Transfer Assessment Sit to and From Stand Sit to and from Stand Standby Assistance,Contact Guard Assistance,Use of Upper Extremities Equipment Transfer Assistive Device Gait Belt,Front Wheeled Walker Transfers Transfer Destination Bed,Chair Transfer Technique Stand Step Pivot Transfer Ability Level of Assist Standby Assistance,Contact Guard Assistance,Use of Upper Extremities Comments Mobility Comments Pt was eager to get out of bed and ambulate. Once back to bed after gait he immediately fell asleep. Gait Assessment Gait Gait Assistance Required: Contact Guard Assist,Minimum Assistance Distance (Feet) 150 Assistive Devices Assistive Device Gait Belt,Front Wheeled Walker Factors Limiting Gait Function Factors Limiting Gait Function Decreased Activity Tolerance, Poor Balance,Poor Safety Awareness Comments Gait Comments Pt veering to the left during gait with the walker, he runs into arthur and objects, can correct when he stops and adjusts the fWW. Nursing reports pt went into A-fib while ambulating so assisted pt back to room to rest. Pt denies symptoms from A-fib. Stair Climbing Assessment Comments Stair Climbing Comments not attemped this visit due to patient fatigue with gait PT-Balance Assessment Sitting Balance and Reactions Static Sitting Balance Ability Normal Dynamic Sitting Balance Ability Normal Standing Balance and Reactions Static Standing Balance Ability Good Dynamic Standing Balance Ability Fair Device Used FWW M5 PT-IP Objective Assessments Start: 07/03/21 08:51 Freq: NEEDED Status: Active Protocol: Document 07/03/21 11:08 DLM (Rec: 07/03/21 12:50 DL [id number]) Orientation Orientation/Cognition Level of Alertness Alert Orientation Name,Birthday,Month,Year,Place Safety Awareness Decreased Safety Awareness Memory Description Short Term Impaired Comments He is impulsive and not aware of his current condition. He is cooperative and friendly during treatment. He initially stated it was 2000 but when questioned was able to correct it to 2020. He was worried about his out-pt Physical therapy this visit. Gross Range of Motion Upper Extremity ROM Assessment Within Functional Limits Lower Extremity ROM Assessment Within Functional Limits Impairments he reports good recovery of right knee s/p TKA, measurements not taken this visit Strength Upper Extremity Strength Assessment Within Functional Limits Lower Extremity Strength Assessment Bilaterally Impaired Comments Strength Comments Generalized decrease in LE strength with standing and gait which appears related to his medical condition. He has difficulty concentrating to complete MMT. Coordination Assessment Gross Coordination Gross Coordination Impaired Assessment Coordination Comments mild intermittent tremors, mild to moderate decreased coordination with functional tasks Sensation Assessment Sensation Gross Sensation WNL Comments Sensation Comments he denies numbness/tingling Muscle Tone Muscle Tone WNL Yes M6 PT-IP Treatment Start: 07/03/21 08:51 Freq: NEEDED Status: Active Protocol: Document 07/03/21 11:08 [facility] (Rec: 07/03/21 12:50 [facility] [id number]) Physical Therapy Treatment Education Education Provided Safety M7 PT-IP Assessment and Plan Start: 07/03/21 08:51 Freq: NEEDED Status: Active Protocol: Document 07/03/21 11:08 [facility] (Rec: 07/03/21 12:50 [facility] [id number]) PT Summary Assessment and Plan Potential Rehabilitation Potential Good Status of Condition at Evaluation Evolving Summary Impairments Pain,ROM,Strength,Balance, Coordination,Cognition, Transfers,Gait,Activity Tolerance Assessment Summary Earnest woke up for physical therapy and shows good participation. He is cooperative and wants to ambulate. He was able to ambulate in the fry with the FWW but runs into arthur and objects with the FWW. He is impulsive and still has some confusion today. He reports he is not using an assistive device at home (progressed off the cane after TKA). He continues to have chronic back pain this visit. His confusion and decreased activity tolerance make him unsafe to be home alone. He will need 24/7 assist to return home or he could benefit from SNF rehab. Will continue to assess his discharge needs as his medical status improves. Anticipate he will progress quickly with his mobility as his medical status improves. His caregiver , Hank, was able to assist him after his TKA but not clear how much assist he can provide after this hospitalization. Goals Bed Mobility Goal Independent Transfer Goal Independent Gait Goal Independent Gait Distance 250 feet Other Goals Up and down 3 steps with rail and CG assist Days to Meet Goals 5 Frequency of Treatment Frequency Of Treatment Once a Day Treatment Plan Physical Therapy Treatment Plan Bed Mobility Training,Transfer Training,Gait Training, Therapeutic Exercise,Balance Retraining,Discharge Planning, Neuromuscular Re-ed, Coordination Retraining Recommendations To Nursing Amount of Assist Needed 1 Person Assist Discharge Recommendations PT Discharge Recommendations Home vs SNF Other Discharge Recommendations Will need 24/ assist for him to return home at this time. Transportation Needs at Discharge Private Vehicle
--- NOTE | 2021-07-03 11:50 | CM.DPC ---
Addendum entered by Lara Finley R.N. 07/03/21 14:09: Called some [facility] facilities, as P.T. notes indicate weakness, and need for part time care caregivers. Called [facility] and spoke to Natacha. She indicated that they can't accept Reza now. Left a message with [facility], but did not yet send referral. Called Kateryna at [facility], and she is familiar with patient. Stated, if they can get a carve out for Reza, may be possible. Sent her over the referral. Roman from [facility] just called back and indicated that they can't accept patient at this time. Left [facility] a message letting him know that care management is attempting to get patient to [facility] in [facility], but may want to obtain an assessment for increased JUSTICE caregivers. At this time, will follow up with [facility]. Addendum entered by Lara Finley R.N. 07/03/21 12:27: Faxed [facility] face sheet, face to face, orders, H&P, and progress note from yesterday. They will just need DC Summary upon discharge. Original Note: DCP Cont: Spoke to patient, prior, he had been up in his chair, but not back in bed. Some confusion noted. Asked him if he was still getting home health, and which agency. He gave out a name, but did not indicate agency. Confirmed with him that he lives in his , has a hospital bed. Confirmed that his caregiver, Hank, lives near by, and she would be the one picking him up when he is ready to discharge. Checked in with nurse, Nurys. She indicated that his ammonia level has not yet been checked, but had still been high. She mentioned that his level may be checked today. There was some concern regarding medication compliance. Asked patient if he has been taking his medications, or having difficulties getting medications, and he denied. Checked last discharge note from care management, and is noted that he discharged with [facility]. Called [facility] and confirmed that he was on their services and was just discharged on 06-15 from therapy. Stated, they can see him again if needed. Have a new face to face signed. Will need nursing, to check on medication as well. Will go ahead and fax H&P. P: DCP to continue to follow. Patient has not yet worked with P.T. At this time plan is to discharge back home with [facility]. Lara Finley RN/Wood Flooring Specialist
[2021-07-03] MEDS: SODIUM,POTASSIUM PHOSPHATES PACKET 2 EACH PO (11:53)
--- NOTE | 2021-07-03 12:49 | PM.DS.1 ---
History of Present Illness History of Present Illness Chief complaint: Alterer Mental Status Discharge Providers Provider Date of admission: 06/30/21 16:53 Primary care physician: Kevin Porter MD Consults: 07/02/21 18:48 Consult to Physical Therapy Evaluate & Treat Comment: Physician Instructions: Evaluate and Treat 07/03/21 12:07 Consult to Home Health Routine Comment: Reason For Exam: Home Health RN, P.T, O.T. Discharge provider: Tatianna Watson DO Exam Vital Signs (past 8 hours): - 07/03/21 05:08 07/03/21 05:35 07/03/21 06:00 Temperature 99.4 F Pulse Rate 117 H 89 Respiratory Rate Blood Pressure 167/94 H 147/82 H Pulse Oximetry 07/03/21 07:00 07/03/21 07:35 07/03/21 09:08 Temperature 99.7 F H Pulse Rate 85 Respiratory Rate 18 Blood Pressure 126/88 Pulse Oximetry 96 94 95 07/03/21 11:15 Temperature 98.2 F Pulse Rate 85 Respiratory Rate 19 Blood Pressure 146/87 H Pulse Oximetry 95 Oxygen Delivery Method Room Air Oxygen Flow Rate 0 Objective Labs Result Diagrams: 07/03/21 05:44 07/03/21 05:44 Labs: Laboratory Results - last 24 hr 07/03/21 07/03/21 05:44 05:44 WBC 12.4 H D RBC 3.54 L Hgb 11.6 L Hct 35.4 L MCV 99.9 MCH 32.7 MCHC 32.8 RDW 15.9 H Plt Count 104 L Neut % (Auto) Not Reportable Lymph % (Auto) Not Reportable [place] % (Auto) Not Reportable Eos % (Auto) Not Reportable Baso % (Auto) Not Reportable Lymph # (Auto) Not Reportable [place] # (Auto) Not Reportable Baso # (Auto) Not Reportable Total Counted 100 Seg Neutrophils % 57.0 Band Neutrophils % 2.0 L Lymphocytes % (Manual) 13.0 L Atypical Lymphs % 17.0 H Monocytes % (Manual) 9.0 Eosinophils % (Manual) 2.0 Neutrophils # (Manual) 7316 H RBC Morphology See below Anisocytosis 1+ H Sodium 129 L Potassium 4.1 Chloride 102 Carbon Dioxide 24 BUN 39 H Creatinine 2.37 H Estimated GFR 28.5 L BUN/Creatinine Ratio 16.5 Glucose 103 H Calcium 8.4 Phosphorus 2.3 L D Magnesium 1.9 PFSH Medical History Cirrhosis of liver CKD (chronic kidney disease) Compression fracture Depression Former smoker GERD (gastroesophageal reflux disease) Gout Hepatitis C (~2011) History of vertebral compression fracture Hypertension Immunosuppression Liver cancer Medical marijuana use GUILLE (obstructive sleep apnea) Osteoporosis PAC (premature atrial contraction) Pain management contract agreement Paroxysmal atrial fibrillation PVC (premature ventricular contraction) Thrombocytopenia Surgical History H/O right wrist surgery History of biliary duct stent placement (01/2013) History of open reduction and internal fixation (ORIF) procedure (09/22/20) History of removal of retained hardware (01/25/21) History of right hip replacement Hx of appendectomy (~1979) Hx of cholecystectomy (~2003) Hx of elbow surgery (~2003) Hx of elbow surgery (~2007) Hx of fusion of cervical spine Hx of hernia repair Hx of shoulder surgery (~2012) Hx of tonsillectomy (~1969) Liver transplant recipient (11/24/11) Presence of left artificial elbow joint Family History Mother Renal failure Father Diabetes mellitus Congestive heart failure Social History household members: caregiver and none Smoking Status: Former smoker alcohol intake: current Discharge Plan Discharge Plan Patient Disposition: Home Discharge orders & Medications Prescriptions: Continued furosemide 20 mg tablet 20 mg PO DAILY 0RF tamsulosin 0.4 mg Capsule 0.4 mg PO BEDTIME 0RF aspirin 81 mg Tablet,Delayed Release (Dr/Ec) 81 mg PO BID Qty: 90 0RF oxycodone 10 mg Tablet 10 mg PO Q3HR PRN (Reason: Pain, Severe (7-10)) Qty: 60 0RF acetaminophen [Tylenol] 325 mg capsule 650 mg PO TID 0RF quetiapine [Seroquel] 25 mg Tablet 25 mg PO BEDTIME 0RF cyclosporine modified 25 mg Capsule 25 mg PO BID 0RF allopurinol 100 mg Tablet 100 mg PO DAILY 0RF mycophenolate mofetil [CellCept] 500 mg Tablet 500 mg PO BID 0RF lidocaine [Lidoderm] 5 % Adhesive Patch,Medicated 1 patch TOPICAL DAILY 0RF ursodiol 300 mg Capsule 300 mg PO BID 0RF gabapentin 300 mg Capsule 300 mg PO BID 0RF Kellie-Ramila 0.8 mg Tablet 1 tab PO DAILY 0RF pyridoxine (vitamin B6) 100 mg Tablet 100 mg PO DAILY 0RF fentanyl [Duragesic] 25 mcg/hr Patch 72 Hour 25 mcg topical Q72H 0RF hydroxyzine pamoate [Vistaril] 25 mg Capsule 25 mg PO BEDTIME PRN (Reason: Itching) 0RF duloxetine [Cymbalta] 20 mg Capsule,Delayed Release(Dr/Ec) 20 mg PO DAILY 0RF ondansetron 4 mg tablet,disintegrating 4 mg PO TID-QID PRN (Reason: nausea and vomiting) Qty: 10 0RF pantoprazole [Protonix] 40 mg tablet,delayed release (DR/EC) 40 mg PO DAILY Qty: 30 0RF Xifaxan 550 mg Tablet 550 mg PO BID 0RF hydromorphone 4 mg tablet 4 mg PO Q6H PRN (Reason: pain) Qty: 30 0RF cyclobenzaprine 10 mg Tablet 10 mg PO Q8H PRN (Reason: Spasms) Qty: 0 0RF Narcan 4 mg/actuation [place],Non-Aerosol 1 spray INTRANASAL PER PKG DIR 30 Days Qty: 1 0RF Label Comments: patient has never used before Rx Instructions: 1 spray q2 minutes for opiate overdose metoprolol succinate 25 mg tablet extended release 24 hr 25 mg PO DAILY 0RF Medication counseling provided by Pharmacist: No Follow up/Referrals: Kevin Porter MD [Primary Care Provider] - Diet/Activity/Treatments Diet: Low-fat and Low-cholesterol Activity: TOLERATED Skin/Wound/Dressing Care Report to your healthcare provider any signs of infection, such as:: chills, fever, night sweats, increased pain and unusual drainage Visit Report/Discharge Packet Instructions: DI for Prescription Opioid Use Discharge Data Primary Care Provider: Kevin Porter
--- NOTE | 2021-07-03 14:31 | PC.NURSE ---
D/C to home order by . This RN notified MD that pt is confused at times, does not follow all directions, and does not have continuous help at home. No Ammonia lab since admit. VTO for D/C to home canceled.
[2021-07-03 14:56] LABS: Ammonia (NH3) 69 umol/L (9-30)
[2021-07-03] MEDS: ONDANSETRON 4 MG ODT SL (16:19)
--- NOTE | 2021-07-03 16:36 | PM.PN.1 ---
Subjective Subjective Date Patient Seen: 07/03/21 Interval history: PATIENT HAS ENCEPHALOPATHY. REVIEW OF SYSTEM ISN'T RELIABLE Exam Vital Signs (past 8 hours): - 07/03/21 09:08 07/03/21 11:15 07/03/21 15:36 Temperature 99.7 F H 98.2 F 98.9 F Pulse Rate 85 85 85 Respiratory Rate 18 19 18 Blood Pressure 126/88 146/87 H 178/85 H Pulse Oximetry 95 95 94 Oxygen Delivery Method Room Air Oxygen Flow Rate 0 Const General: cooperative and well developed HENMT Head: normal to inspection and normocephalic Ears: hearing grossly normal bilaterally Mouth: oral mucosae normal Eyes General: appearance normal, both eyes and all related structures EOM: EOM intact bilaterally Neck Neck: normal visual inspection and full ROM Chest Chest: normal inspection of the chest Resp Effort & Inspection: normal respiratory effort and able to speak in complete sentences Auscultation: clear to auscultation bilaterally Cardio Palpation: normal PMI Rate: regular rate GI Inspection: normal to inspection and obesity External: normal external exam Skin General: no rashes or lesions noted Neuro Cranial Nerves: CN's II-XI intact bilaterally Extrem General: normal to inspection Psych Other: ENCEPHALOPATHY. CALM. COOPERATIVE Objective Labs Result Diagrams: 07/03/21 05:44 07/03/21 05:44 Labs: Laboratory Results - last 24 hr 07/03/21 07/03/21 07/03/21 05:44 05:44 14:35 WBC 12.4 H D RBC 3.54 L Hgb 11.6 L Hct 35.4 L MCV 99.9 MCH 32.7 MCHC 32.8 RDW 15.9 H Plt Count 104 L Neut % (Auto) Not Reportable Lymph % (Auto) Not Reportable [place] % (Auto) Not Reportable Eos % (Auto) Not Reportable Baso % (Auto) Not Reportable Lymph # (Auto) Not Reportable [place] # (Auto) Not Reportable Baso # (Auto) Not Reportable Total Counted 100 Seg Neutrophils % 57.0 Band Neutrophils % 2.0 L Lymphocytes % (Manual) 13.0 L Atypical Lymphs % 17.0 H Monocytes % (Manual) 9.0 Eosinophils % (Manual) 2.0 Neutrophils # (Manual) 7316 H RBC Morphology See below Anisocytosis 1+ H Sodium 129 L Potassium 4.1 Chloride 102 Carbon Dioxide 24 BUN 39 H Creatinine 2.37 H Estimated GFR 28.5 L BUN/Creatinine Ratio 16.5 Glucose 103 H Calcium 8.4 Phosphorus 2.3 L D Magnesium 1.9 Ammonia 69 H PFSH Medical History Cirrhosis of liver CKD (chronic kidney disease) Compression fracture Depression Former smoker GERD (gastroesophageal reflux disease) Gout Hepatitis C (~2011) History of vertebral compression fracture Hypertension Immunosuppression Liver cancer Medical marijuana use GUILLE (obstructive sleep apnea) Osteoporosis PAC (premature atrial contraction) Pain management contract agreement Paroxysmal atrial fibrillation PVC (premature ventricular contraction) Thrombocytopenia Surgical History H/O right wrist surgery History of biliary duct stent placement (01/2013) History of open reduction and internal fixation (ORIF) procedure (09/22/20) History of removal of retained hardware (01/25/21) History of right hip replacement Hx of appendectomy (~1979) Hx of cholecystectomy (~2003) Hx of elbow surgery (~2003) Hx of elbow surgery (~2007) Hx of fusion of cervical spine Hx of hernia repair Hx of shoulder surgery (~2012) Hx of tonsillectomy (~1969) Liver transplant recipient (11/24/11) Presence of left artificial elbow joint Family History Mother Renal failure Father Diabetes mellitus Congestive heart failure Social History household members: caregiver and none Smoking Status: Former smoker alcohol intake: current Assessment & Plan Assessment & Plan narrative: PROBLEM LIST 1- ACUTE HEPATIC ENCEPHALOPATHY 2-- MEDICAL NONCOMPLIANCE 3--- CIRRHOSIS OF THE LIVER FOR HISTORY 4-- HEPATOCELLULAR CARCINOMA FOR HISTORY 5--- THROMBOCYTOPENIA PLAN CONTINUE LACTULOSE FALL AND ASPIRATION PRECAUTIONS FOLLOW AMMONIA LEVEL CLOSELY DID NOT FOLLOW HOLD DISCHARGE FOR NOW MONITOR INPUT OUTPUT CLOSELY WITH CT OF THE HEAD IF INDICATED MONITOR CLOSELY FOR ANY SIGN OF BLEEDING DUE TO LOW PLATELET ADDITIONAL PHYSICALLY CLINICALLY INDICATED DISCHARGE PER CLINICAL COURSE Time Spent With Patient Critical Care time: I spent a total of [] minutes of critical care time on this patient's care today; this time is exclusive of procedural time.
[2021-07-03] MEDS: TAMSULOSIN 0.4 MG CAPSULE PO (22:00)
[2021-07-03] MEDS: QUETIAPINE 25 MG TABLET PO (22:00)
[2021-07-04] VITALS (13 sets, daily range): BP systolic 141–156; BP diastolic 73–91; PULSE 78–86; RESP 14–18; TEMP 36.6–38.2; O2SAT 96–99
[2021-07-04] MEDS: HYDROMORPHONE 4 MG TABLET PO (03:45)
[2021-07-04 07:10] LABS: Add Manual Diff / Slide Review NO; Basophils Absolute Auto 200 /uL (0-100); Basophils Percent Auto 2.7 % (0-2); Eosinophils Absolute Auto 100 /uL (0-450); Eosinophils Percent Auto 1.6 % (2-4); Hematocrit 33.2 % (41-53); Hemoglobin 10.8 g/dL (13.5-17.5); Lymphocytes Absolute Auto 3600 /uL (1100-4500); Lymphocytes Percent Auto 39.1 % (25-40); Mean Corpuscular HGB Conc 32.7 % (30-36); Mean Corpuscular Hemoglobin 32.4 PG (26-34); Mean Corpuscular Volume 99.2 fL (80-100); Monocytes Absolute Auto 1100 /uL (0-900); Monocytes Percent Auto 12.5 % (3-14); Neutrophils Absolute Auto 4000 /uL (1500-7000); Neutrophils Percent Auto 44.1 % (50-75); Platelet Count 105 X10^3/uL (150-400); Red Blood Cell Count 3.35 X10^6/uL (4.5-5.9); Red Cell Distribution Width 15.6 % (11.6-14.8); White Blood Cell Count 9.1 X10^3/uL (4.5-11.0)
[2021-07-04 07:20] LABS: Alanine Aminotransferase 25 IU/L (<50); Albumin 2.4 g/dL (3.5-5.0); Albumin Globulin Ratio 0.8 (1.0-2.8); Alkaline Phosphatase 242 U/L (38-126); Ammonia (NH3) 69 umol/L (9-30); Aspartate Aminotransferase 43 IU/L (17-59); Bilirubin Total 1.1 mg/dL (0.2-1.3); Blood Urea Nitrogen 44 mg/dL (9-20); Calcium 8.1 mg/dL (8.4-10.2); Carbon Dioxide 21 mmol/L (22-32); Chloride 103 mmol/L (98-107); Estimated Glomerular Filt Rate 29.3 mL/min (>60); Glucose 116 mg/dL (70-100); HEMOLYSIS < 15 (0-50); Potassium 4.2 mmol/L (3.4-5.1); Sodium 129 mmol/L (137-145); Total Protein 5.4 g/dL (6.3-8.2)
[2021-07-04] MEDS: LACTULOSE 20 GM/30 ML SOLUTION 30 GM PO ×3 (09:48→22:30)
[2021-07-04] MEDS: CYCLOSPORINE, MODIFIED 25 MG CAPSULE PO ×2 (09:48→22:45)
[2021-07-04] MEDS: RIFAXIMIN 550 MG TABLET PO (09:48)
[2021-07-04] MEDS: MYCOPHENOLATE MOFETIL 500 MG TABLET PO (09:48)
[2021-07-04] MEDS: HEPARIN 5,000 UNIT/ML VIAL 5000 UNIT SUBCUT ×2 (09:48→20:33)
[2021-07-04] MEDS: ursodioL 300 MG CAPSULE PO (09:49)
--- NOTE | 2021-07-04 11:02 | PT.IPTN ---
Current Diagnoses Somnolence (06/30/21) Physical Therapy Treatment Note M2 PT-IP Current Condition Start: 07/03/21 08:51 Freq: NEEDED Status: Active Protocol: Document 07/03/21 11:08 DLM (Rec: 07/03/21 12:50 DLM [id number]) Physical Therapy Current Condition Current Condition Evaluation Date 07/03/21 Treatment Diagnosis AMS, impaired gait and balance Onset Date 06/30/21 M3 PT-IP Subjective Start: 07/03/21 08:51 Freq: NEEDED Status: Active Protocol: Document 07/04/21 10:43 KS (Rec: 07/04/21 12:42 KS [id number]) Subjective Physical Therapy Visit Type Type Treatment Note Visit Start Time 10:43 Visit Stop Time 11:02 Total Visit Minutes 19 Number of CANDY DIPPER Visits 1 Physical Therapy Visit Comments Patient Goals He wants to go home M4 PT-IP Mobility and Gait Start: 07/03/21 08:51 Freq: NEEDED Status: Active Protocol: Document 07/04/21 10:43 KS (Rec: 07/04/21 12:42 KS [id number]) PT-Bed Mobility Assessment Rolling Level of Assist Independent Supine to Sit Supine to Sit Independent Sit to Supine Sit to Supine Independent Scooting Scooting to Edge of Bed Independent Scooting Up and Down in Bed Independent PT-Transfer Assessment Sit to and From Stand Sit to and from Stand Contact Guard Assistance,1 Person Assistance,Use of Upper Extremities Equipment Transfer Assistive Device Gait Belt,Front Wheeled Walker Transfers Transfer Destination Bed Transfer Technique Pt ambulated w/ FWW Transfer Ability Level of Assist Standby Assistance,Contact Guard Assistance,Use of Upper Extremities Comments Mobility Comments Pt in bed upon arrival from therapy and agreeable to ambulation. Pt I for sup<>sit and scooting EOB. CGA for sit< >stand w/ FWW. Pt then ambulated ~230 ft w/ FWW and CGA to Min A. He had difficulty avoiding obstacles in hallway, occasionally requiring Min A for FWW management to avoid obstacles. Returned to room and bed SBA. Pt reported nausea following ambulation, ICE CRUSHER present and agreed to tell RN. Pt left in bed w/ all needs in reach and alarm on. Gait Assessment Gait Gait Assistance Required: Contact Guard Assist,Minimum Assistance Distance (Feet) 230 Assistive Devices Assistive Device Gait Belt,Front Wheeled Walker Gait Deviations General Gait Pattern Decreased Stride Length, Decreased Feet Clearance Factors Limiting Gait Function Factors Limiting Gait Function Decreased Activity Tolerance, Poor Balance,Poor Safety Awareness Comments Gait Comments Pt continues to veer left and demonstrated difficulty avoiding obstacles in hallway w/ FWW. Min A for FWW management. PT-Balance Assessment Sitting Balance and Reactions Static Sitting Balance Ability Normal Dynamic Sitting Balance Ability Normal Standing Balance and Reactions Static Standing Balance Ability Good Dynamic Standing Balance Ability Fair Device Used FWW M5 PT-IP Objective Assessments Start: 07/03/21 08:51 Freq: NEEDED Status: Active Protocol: Document 07/03/21 11:08 DLM (Rec: 07/03/21 12:50 DLM [id number]) Orientation Orientation/Cognition Level of Alertness Alert Orientation Name,Birthday,Month,Year,Place Safety Awareness Decreased Safety Awareness Memory Description Short Term Impaired Comments He is impulsive and not aware of his current condition. He is cooperative and friendly during treatment. He initially stated it was 2000 but when questioned was able to correct it to 2020. He was worried about his out-pt Physical therapy this visit. Gross Range of Motion Upper Extremity ROM Assessment Within Functional Limits Lower Extremity ROM Assessment Within Functional Limits Impairments he reports good recovery of right knee s/p TKA, measurements not taken this visit Strength Upper Extremity Strength Assessment Within Functional Limits Lower Extremity Strength Assessment Bilaterally Impaired Comments Strength Comments Generalized decrease in LE strength with standing and gait which appears related to his medical condition. He has difficulty concentrating to complete MMT. Coordination Assessment Gross Coordination Gross Coordination Impaired Assessment Coordination Comments mild intermittent tremors, mild to moderate decreased coordination with functional tasks Sensation Assessment Sensation Gross Sensation WNL Comments Sensation Comments he denies numbness/tingling Muscle Tone Muscle Tone WNL Yes M6 PT-IP Treatment Start: 07/03/21 08:51 Freq: NEEDED Status: Active Protocol: Document 07/04/21 10:43 KS (Rec: 07/04/21 12:42 KS [id number]) Physical Therapy Treatment Education Education Provided Safety M7 PT-IP Assessment and Plan Start: 07/03/21 08:51 Freq: NEEDED Status: Active Protocol: Document 07/04/21 10:43 KS (Rec: 07/04/21 12:42 KS [id number]) PT Summary Assessment and Plan Potential Rehabilitation Potential Good Status of Condition at Evaluation Evolving Summary Impairments Pain,ROM,Strength,Balance, Coordination,Cognition, Transfers,Gait,Activity Tolerance Assessment Summary Pt Independent for bed mobility, SBA to CGA for transfers, and CGA to Min A for ambulation w/ FWW to avoid obstacles. He was able to tolerate ~230 ft ambulation with decreased stride and foot clearance and reported fatigue. Continues to veer towards left w/ FWW. He is also impulsive and confused and requires redirection for tasks. He is currently unsafe to be at home due to weakness and confusion and would benefit from SNF to improve tolerance for activity, but at least would require 24/7 caregiver. Goals Bed Mobility Goal Independent Transfer Goal Independent Gait Goal Independent Gait Distance 250 feet Other Goals Up and down 3 steps with rail and CG assist Days to Meet Goals 5 Frequency of Treatment Frequency Of Treatment Once a Day Treatment Plan Physical Therapy Treatment Plan Bed Mobility Training,Transfer Training,Gait Training, Therapeutic Exercise,Balance Retraining,Discharge Planning, Neuromuscular Re-ed, Coordination Retraining Recommendations To Nursing Amount of Assist Needed 1 Person Assist Discharge Recommendations PT Discharge Recommendations Home vs SNF Other Discharge Recommendations Will need 24/7 assist for him to return home at this time. Transportation Needs at Discharge Private Vehicle
--- NOTE | 2021-07-04 11:31 | CM.DPC ---
Addendum entered by Katy Pyle MSW 07/04/21 14:50: ADD: Per OT, pt was able to manage bed mobility and chair with SBA mostly but completed the SLUMS and pt scored 10 out of 30 showing significant cognitive deficits but unclear if pt will cognitively clear with medical stability or if this is now pt's baseline. KRISSY called pt's assigned JUSTICE Rachel [phone] and left msg regarding pt's SLUMS score and likely need for re-assessment for increased hours or begin discussion regarding LTC in a facility rather than in his RV. KRISSY faxed pt's H&P and PT/OT notes for review for cog assessment. KRISSY called pt's JUSTICE CG Hank and discussed above and that pt is considered more halfway care rather than needing further medical interventions or hospital level of care and that pt is not really appropriate for SNF rehab as his ambulation/mobility is quite good but needs more cueing/reminders right now. Hank states she understands and is hopeful for increased CG hours and will try to get in touch with pt's neighbor friends as well to check in more frequently with pt at d/c until hours can be increased. She confirms that pt adamantly refuses SNF at this time as well and has told her that he will never go back to SNF. CG Hank is aware that pt may remain in the hospital tonight if MD does not discharge but will be ready for d/c to home with hopefully HH and Hank is willing to provide transport tomorrow if discharged. KRISSY called [facility] and they are not contracted with [facility] [place] [facility]. KRISSY called [facility] and left detailed msg inquiring if they would be willing to review for preference of HH RN/PT but really either pending [place] coverage. Plan: KRISSY to follow closely for likely pt d/c to his RV tomorrow via JUSTICE CG POV and possible new [facility] referral. BF Original Note: DCP Ongoing Planning: Per MD, pt seems to be stabilizing and labs looking better. OT ordered and pending. Per PT, pt ambulated well in the fry with walker but seemed to need some cueing and reminders and did not seem aware of soiled brief that was falling down so unclear if new confusion or baseline. Still recommending 05/03. SW met bedside with pt and explained role and discussed recommendation of 24/7 assist at least initially after d/c from the hospital and pt confirms that he is fairly adamant that he will not go to SNF. SW discussed that his insurance might not even auth SNF and pt states he wants to d/c home with his JUSTICE CG Hank who is there 9-5pm and would be the one to transport him home. KRISSY called pt's JUSTICE Cook at [phone] bedside on speaker phone with pt present and discussed if pt has returned to baseline then may d/c today and insurance likely will not auth SNF. CG Joyce states that she received confirmation that she is NOT approved to stay with pt 24/7 for the next day or two as they are no longer approving 24 hour shifts for Caregivers. J states that she has concerns when pt becomes confused because he is like Dr. Ray/Mr. Damian as he thinks she is someone else and gets upset, angry, agitated and very unlike his baseline self. OFELIA Joyce wants to make sure that pt is really mentally clear and back to baseline before d/c. Plan: SW to follow after further PT/OT towards confirming pt return to RV with JUSTICE GILBERT Joyce and will inquire with [facility] if they would accept pt's Reza insurance as [facility] declines accepting pt. ZENA Montaño
--- NOTE | 2021-07-04 13:53 | OT.IP.EVAL ---
Current Diagnoses Somnolence (06/30/21) Past Medical History (Last Reviewed 06/24/21 @ 13:59 by Kirk Dominguez PA-C) Cirrhosis of liver CKD (chronic kidney disease) Compression fracture Depression Former smoker GERD (gastroesophageal reflux disease) Gout H/O right wrist surgery Hepatitis C (~2011) History of biliary duct stent placement (01/2013) History of open reduction and internal fixation (ORIF) procedure (09/22/20) History of removal of retained hardware (01/25/21) History of right hip replacement History of vertebral compression fracture Hx of appendectomy (~1979) Hx of cholecystectomy (~2003) Hx of elbow surgery (~2003) Hx of elbow surgery (~2007) Hx of fusion of cervical spine Hx of hernia repair Hx of shoulder surgery (~2012) Hx of tonsillectomy (~1969) Hypertension Immunosuppression Liver cancer Liver transplant recipient (11/24/11) Medical marijuana use GUILLE (obstructive sleep apnea) Osteoporosis PAC (premature atrial contraction) Pain management contract agreement Paroxysmal atrial fibrillation Presence of left artificial elbow joint PVC (premature ventricular contraction) Thrombocytopenia Surgical History (Last Reviewed 06/24/21 @ 13:59 by Kirk Dominguez PA-C) H/O right wrist surgery History of biliary duct stent placement (01/2013) History of open reduction and internal fixation (ORIF) procedure (09/22/20) History of removal of retained hardware (01/25/21) History of right hip replacement Hx of appendectomy (~1979) Hx of cholecystectomy (~2003) Hx of elbow surgery (~2003) Hx of elbow surgery (~2007) Hx of fusion of cervical spine Hx of hernia repair Hx of shoulder surgery (~2012) Hx of tonsillectomy (~1969) Liver transplant recipient (11/24/11) Presence of left artificial elbow joint Occupational Therapy Inpatient Evaluation/Re-Eval M1 PT/OT-IP Prior Functional Status Start: 07/03/21 08:51 Freq: NEEDED Status: Active Protocol: Document 07/04/21 14:59 CGR (Rec: 07/04/21 15:15 CGR [id number]) Medical Review Prior Functional Status Medical History Reviewed Yes Diet/Fluid Consistency Regular Communication WFL Mobility and Gait Independent without a device, has used a cane in the past as needed, right TKA 05/09/21 Activities of Daily Living and IADL's Independent with basic ADL's, has caregiver (Hank) who helps with laundry/housekeeping and getting him to his appointments Prior Functional Level (Other details) He has been attending out-pt PT with [facility] before this admission for right TKA. He has chronic back pain. Social History Household Members caregiver,none Living Arrangements RV Number of Floors (Floors) One Floor Number of Stairs To Enter/Railing? 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 M1 PT/OT-IP Prior Functional Status Start: 07/04/21 14:58 Freq: NEEDED Status: Active Protocol: Document 07/04/21 14:59 CGR (Rec: 07/04/21 15:15 CGR [id number]) Medical Review Prior Functional Status Medical History Reviewed Yes Diet/Fluid Consistency Regular Communication WFL Mobility and Gait Independent without a device, has used a cane in the past as needed, right TKA 05/09/21 Activities of Daily Living and IADL's Independent with basic ADL's, has caregiver (Hank) who helps with laundry/housekeeping and getting him to his appointments Prior Functional Level (Other details) He has been attending out-pt PT with [facility] before this admission for right TKA. He has chronic back pain. Social History Household Members caregiver,none Living Arrangements RV Number of Floors (Floors) One Floor Number of Stairs To Enter/Railing? 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 M2 OT-IP Current Condition Start: 07/04/21 14:58 Freq: Status: Active Protocol: Document 07/04/21 14:59 CGR (Rec: 07/04/21 15:15 CGR [id number]) Occupational Therapy Current Condition Current Condition Evaluation Date 07/04/21 Treatment Diagnosis AMS Diagnosis Onset Date 06/30/21 M3 OT- IP Subjective and Pain Start: 07/04/21 14:58 Freq: Status: Active Protocol: Document 07/04/21 14:59 CGR (Rec: 07/04/21 15:15 CGR [id number]) OT- Subjective Occupational Therapy Visit Type Type Initial Evaluation Visit Start Time 13:30 Visit Stop Time 13:53 Total Visit Minutes 23 OT Pain Assessment Pain When Pain Assessed During Mobility Pain Present Pain Present Pain Reported Location Back Scale Used did not rate Pain Behaviors Facial Grimacing Management Techniques Distraction,Modification of Treatment,Re-positioning M4 OT- IP ADL's Start: 07/04/21 14:58 Freq: Status: Active Protocol: Document 07/04/21 14:59 CGR (Rec: 07/04/21 15:15 CGR [id number]) OT [id number] Comments OT Self-Feeding Comments meal is present but pt states he does not want anything OT ADL-Grooming Comments OT Grooming Comments Pt declined, states that he performed this am OT ADL-Oral Care Comments Oral Care Comments Pt declined, states that he performed this am OT ADL-Dressing General Eval Lower Body Dressing Ability Total Assistance Areas Needing Assistance Socks OT ADL-Toileting General Evaluation Toileting Ability Standby Assistance Comments OT Toileting Comments simulated seated on toielt OT ADL-Bathing Comments OT Bathing Comments not performed M5 OT- IP IADL's Start: 07/04/21 14:58 Freq: Status: Active Protocol: Document 07/04/21 14:59 CGR (Rec: 07/04/21 15:15 CGR [id number]) OT-Instrumental Activities of Daily Living Deficits IADL Deficits Identified Deficits Home Safety Awareness Awareness of Need for Assistance at Home Decreased Awareness Ability to Problem Solve Emergency Unable to Problem Solve Situations Medication Management Medication Management Comments Concerns regarding pt's ability to perform Money Management Money Management Comments Concerns regarding pt's ability to perform Meal Preparation Meal Preparation Comments Concerns regarding pt's ability to perform Supervisor Rework Supervisor Rework Caregiver Provides Assist Driving Driving Caregiver Provides Assist Driving Comments caregiver provides transportation M6 OT- IP Functional Cognition Start: 07/04/21 14:58 Freq: Status: Active Protocol: Document 07/04/21 14:59 CGR (Rec: 07/04/21 15:15 CGR [id number]) Cognitive Factors Limiting Selfcare Function Cognitive Ability Level of Alertness Alert Patient Orientation Name,Month,Year,Place, Situation Attention Span Ability Capable of Focused Attention, Capable of Sustained Attention Ability to Follow Commands Able to Follow One Step Commands with Increased Time, Able to Follow One Step Commands with Repetition Cognitive Tests SLUMS Pt participated in SLUMS seated up in chair with a score of 10/30. Pt was unable to state the day of the week. Pt was unable to perform simple math Pt was able to name 5 animals in 1 minute Pt was able to remember 3 of the 5 items for STM Pt was unable to perform simple tasks with numbers Pt was unable to correctly epifanio a clock. Pt was able to answer 1 of 4 listening comprehension questions. Cognitive Comments Cognitive Assessment Comments Pt's score indicates significant cognitive deficit. Pt may benefit from further testing using the MOCA or ACL. OT- Vision and Hearing OT- Hearing Assessment OT- Hearing Assessment WFL OT- Vision Assessment Visual Attentiveness WFL M7 OT- IP Mobility and Balance Start: 07/04/21 14:58 Freq: Status: Active Protocol: Document 07/04/21 14:59 CGR (Rec: 07/04/21 15:15 CGR [id number]) OT- Bed Mobility Assessment Rolling Type of Rolling Roll to Left Level of Assistance Standby Assistance Supine to Sit Supine to Sit Assist Standby Assistance Scooting Scooting to Edge of Bed Standby Assistance OT-Transfer Assessment Sit to and From Stand Sit to and from Stand Contact Guard Assistance, Minimal Assistance,1 Person Assistance Transfers Transfer Ability Contact Guard Assistance, Minimal Assistance,1 Person Assistance Technique Transfer Destination Bed,Chair,Toilet Transfer Technique Stand Step Pivot Devices Transfer Assistive Devices Gait Belt,Front Wheeled Walker Comments Mobility Comments Mobility with 2ww CGA to min a . Pt needs vc for safe use of the walker. OT- Balance Assessment Sitting Balance and Reactions Static Sitting Balance Ability Fair Dynamic Sitting Balance Ability Fair M8 OT- IP Objective Assessments Start: 07/04/21 14:58 Freq: Status: Active Protocol: Document 07/04/21 14:59 CGR (Rec: 07/04/21 15:15 CGR [id number]) OT Gross Range of Motion Upper Extremity Range of Motion Assessment Within Functional Limits OT Strength Upper Extremity Strength Assessment Within Functional Limits OT- Coordination Assessment Upper Extremity Finger to Nose Test Within Functional Limits Finger Tapping Test Within Functional Limits OT-Muscle Tone Assessment Muscle Tone WNL Yes OT Sensation Assessment Edema Edema Absent M9 OT- IP Assessment and Plan Start: 07/04/21 14:58 Freq: Status: Active Protocol: Document 07/04/21 14:59 CGR (Rec: 07/04/21 15:15 CGR [id number]) OT Summary Assessment and Plan Potential Rehabilitation Potential Good Analytic Complexity at Evaluation Moderate Summary OT Impairments Balance,Functional Cognition, Functional Mobility,Grooming, Dressing,Toileting,Bathing, Toilet Transfers,Shower Transfers,Activity Tolerance Progress Towards Goals Slow Progress due to Cognition Assessment Summary Pt presents as a moderate complexity evalution s/p admit for AMS. Pt scored a 10/30 on the SLUMS and currently needs CGa to min with the walker for mobility. 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 Pt will continue to benefit from OT services. Recommendation is for d/c to SNf at this time. Goals Self-Feeding Goal Independent Grooming Goal Independent Dressing Goal Independent Toileting Goal Independent Bathing Goal Independent Toilet Transfer Goal Independent Shower Transfer Goal Independent Days to Meet Goals 10 Frequency of Treatment Frequency Of Treatment Once a Day Treatment Plan OT Treatment Plan ADL Training,Functional Cognition Training,Functional Mobility,Patient/Family Education,Discharge Planning Other Treatment Recommendations and Next shower, MOCA or other cog Treatment Focus assessment Discharge Recommendations OT Discharge Recommendations SNF Rehab Transportation Needs at Discharge Private Vehicle
--- NOTE | 2021-07-04 17:50 | PM.PN.1 ---
Subjective Subjective Date Patient Seen: 07/04/21 Interval history: PATIENT IS ALERT AWAKE ORIENTED X3. DENIES ANY CHEST PAIN. NO CHEST PALPITATIONS NO CHEST PRESSURE. NO SHORTNESS OF BREATH. NO DYSPNEA ON EXERTION FROM HIS BASELINE NO FEVER OR CHILLS OVERNIGHT SPOKE TO CASE MANAGEMENT IN REGARD TO DISCHARGE PLANNING Exam Vital Signs (past 8 hours): - 07/04/21 12:00 Temperature 98.2 F Pulse Rate 86 Respiratory Rate 14 Blood Pressure 145/91 H Pulse Oximetry 98 Oxygen Delivery Method Room Air Oxygen Flow Rate 0 Narrative Exam Narrative: NO ACUTE DISTRESS. PATIENT IS ALERT ORIENTED X3. VITAL SIGNS STABLE HEAD ATRAUMATIC NORMOCEPHALIC NECK : SUPPLE WITHOUT ADENOPATHY NO CAROTID BRUITS EYE: EOMI, PERRLA, NORMAL CONJUNCTIVA; NO JAUNDICE CHEST: REGULAR RATE. NO RUBS. PMI IS NON DISPLACED. NORMAL S1-S2 PULMONARY: DECREASED BS OVER THE BASES. MILD BIBASILAR CRACKLES NOTED; NO INCREASED DULLNESS TO PERCUSSION ABDOMEN: OBESE BUT SOFT. NONTENDER. NONDISTENDED. BOWEL SOUNDS ARE PRESENT IN ALL 4 QUADRANTS. NO MASS. EXTREMITIES: 2+ NONPITTINGEDEMA.. NO CYANOSIS CLUBBING NOTED. NEURO: CRANIAL NERVES 2-12 GROSSLY INTACT. NO FOCAL NEUROLOGICAL DEFICIT NOTED. MSK: NORMAL RANGE OF MOTION FOR AGE. NO JOINT EFFUSION. SKIN: FAIR SKIN TURGOR; NO ECCHYMOSIS. NO JAUNDICE PSYCH : APPROPRIATE MOOD AND AFFECT. ALERT AWAKE ORIENTED X3 Objective Labs Result Diagrams: 07/04/21 06:55 07/04/21 06:55 Labs: Laboratory Results - last 24 hr 07/04/21 07/04/21 07/04/21 06:55 06:55 06:55 WBC 9.1 RBC 3.35 L Hgb 10.8 L Hct 33.2 L MCV 99.2 MCH 32.4 MCHC 32.7 RDW 15.6 H Plt Count 105 L Neut % (Auto) 44.1 L Lymph % (Auto) 39.1 Johnson % (Auto) 12.5 Eos % (Auto) 1.6 L Baso % (Auto) 2.7 H Neut # (Auto) 4000 Lymph # (Auto) 3600 Johnson # (Auto) 1100 H Eos # (Auto) 100 Baso # (Auto) 200 H Sodium 129 L Potassium 4.2 Chloride 103 Carbon Dioxide 21 L BUN 44 H Creatinine 2.31 H Estimated GFR 29.3 L BUN/Creatinine Ratio 19.0 Glucose 116 H Calcium 8.1 L Total Bilirubin 1.1 AST 43 ALT 25 Alkaline Phosphatase 242 H Ammonia 69 H Total Protein 5.4 L Albumin 2.4 L Globulin 3.0 Albumin/Globulin Ratio 0.8 L PFSH Medical History Cirrhosis of liver CKD (chronic kidney disease) Compression fracture Depression Former smoker GERD (gastroesophageal reflux disease) Gout Hepatitis C (~2011) History of vertebral compression fracture Hypertension Immunosuppression Liver cancer Medical marijuana use GUILLE (obstructive sleep apnea) Osteoporosis PAC (premature atrial contraction) Pain management contract agreement Paroxysmal atrial fibrillation PVC (premature ventricular contraction) Thrombocytopenia Surgical History H/O right wrist surgery History of biliary duct stent placement (01/2013) History of open reduction and internal fixation (ORIF) procedure (09/22/20) History of removal of retained hardware (01/25/21) History of right hip replacement Hx of appendectomy (~1979) Hx of cholecystectomy (~2003) Hx of elbow surgery (~2003) Hx of elbow surgery (~2007) Hx of fusion of cervical spine Hx of hernia repair Hx of shoulder surgery (~2012) Hx of tonsillectomy (~1969) Liver transplant recipient (11/24/11) Presence of left artificial elbow joint Family History Mother Renal failure Father Diabetes mellitus Congestive heart failure Social History household members: caregiver and none Smoking Status: Former smoker alcohol intake: current Assessment & Plan Assessment & Plan narrative: PROBLEM LIST 1-? ACUTE HEPATIC ENCEPHALOPATHY. PATIENT APPEARED TO BE BACK TO BASELINE MENTALLY 2--? MEDICAL NONCOMPLIANCE. EXTENSIVE COUNSELING GIVEN 3--- CIRRHOSIS OF THE LIVER FOR HISTORY 4-- HEPATOCELLULAR CARCINOMA FOR HISTORY 5--- THROMBOCYTOPENIA. MONITOR CLOSELY 6--- PHYSICAL DECONDITIONING/ DEBILITY. MULTIFACTORIAL PLAN PATIENT APPEARED TO BE IMPROVING CLINICALLY WILL CONTINUE TO FOLLOW UP CLOSELY AMMONIA REMAINS SIGNIFICANTLY ELEVATED BUT THIS MIGHT BE HIS BASELINE REPEAT AMMONIA LEVEL IN THE MORNING WELL OTHER LABS CONTINUE CURRENT TREATMENT OTHERWISE WILL PLAN TO DISCHARGE IN THE MORNING IF CLINICALLY STABLE Time Spent With Patient Critical Care time: I spent a total of [] minutes of critical care time on this patient's care today; this time is exclusive of procedural time.
--- NOTE | 2021-07-04 20:33 | PC.NURSE ---
emesis post meds 100cc emesis (including pills) post PO med pass. oral care refused. face washed. pt states was not feeling nauseated prior to.
[2021-07-04] MEDS: ONDANSETRON 4 MG ODT SL (21:55)
[2021-07-05] VITALS (9 sets, daily range): BP systolic 156–173; BP diastolic 74–107; PULSE 67–95; RESP 16–18; TEMP 37–38.4; O2SAT 97–98
[2021-07-05] MEDS: METOCLOPRAMIDE 10 MG/2 ML INJ 5 MG IV (00:20)
[2021-07-05] MEDS: ONDANSETRON 4 MG/2 ML INJ IV ×2 (02:51→09:15)
[2021-07-05] MEDS: SODIUM CHLORIDE 0.9% 1,000 ML 125 ML IV ×2 (04:16→16:17)
[2021-07-05] MEDS: PROCHLORPERAZINE 10 MG/2 ML VIAL IV (04:16)
[2021-07-05 05:35] LABS: Add Manual Diff / Slide Review NO; Basophils Absolute Auto 100 /uL (0-100); Eosinophils Absolute Auto 0 /uL (0-450); Eosinophils Percent Auto 0.1 % (2-4); Hematocrit 39.3 % (41-53); Hemoglobin 12.9 g/dL (13.5-17.5); Lymphocytes Absolute Auto 3300 /uL (1100-4500); Lymphocytes Percent Auto 37.2 % (25-40); Mean Corpuscular HGB Conc 32.7 % (30-36); Mean Corpuscular Hemoglobin 32.6 PG (26-34); Mean Corpuscular Volume 99.6 fL (80-100); Monocytes Absolute Auto 800 /uL (0-900); Neutrophils Absolute Auto 4700 /uL (1500-7000); Neutrophils Percent Auto 52.7 % (50-75); Platelet Count 133 X10^3/uL (150-400); Red Blood Cell Count 3.95 X10^6/uL (4.5-5.9); Red Cell Distribution Width 15.6 % (11.6-14.8); White Blood Cell Count 8.9 X10^3/uL (4.5-11.0)
--- NOTE | 2021-07-05 05:40 | PC.NURSE ---
Pt with uncontrollable vomiting through night, additionally febrile. Tmax 101.1, provider informed, no orders given. Controlled using non-pharmacological measures including ice and limiting blankets. Pt does not tolerate ice and removes immediately after staff leaves the room. Reached 98.8 at approx 0515. Pt had multiple episodes of emesis starting with med pass. Immediately after ingesting meds pt experienced sudden onset nausea and vomited up all pills given by float RN. This RN administered SL zofran 4 mg with minimal relief of nausea. Pt allowed this RN to administer lactulose and cyclosporine late, but refused all other medications. Approx 1.5 hours later, pt experienced multiple bouts of emesis. Contacted provider, rec'd order for a one time dose of reglan 10 mg IV. Obtained IV access and administered- provided minimal relief of symptoms. Pt continued to experience bouts of sudden nausea and emesis. Administered 4 mg IV zofran with minimal effect. At approx 0400, pt had over 10 copious loose stools, lost approx 500 mL by vomiting, and had urinated approx 900 mL with no oral intake. Contacted provider, rec'd orders to start NS @ 125/hr, give a 1 time dose of IV compazine 10 mg, and order AM CBC & BMP. Compazine provided minimal relief. Pt continues to vomit and dry heave intermittently. Will continue to monitor.
[2021-07-05 05:45] LABS: BUN Creatinine Ratio 19.5 (6-22); Blood Urea Nitrogen 44 mg/dL (9-20); Calcium 8.8 mg/dL (8.4-10.2); Carbon Dioxide 21 mmol/L (22-32); Chloride 106 mmol/L (98-107); Estimated Glomerular Filt Rate 30.1 mL/min (>60); Glucose 110 mg/dL (70-100); HEMOLYSIS < 15 (0-50); Potassium 4.1 mmol/L (3.4-5.1); Sodium 137 mmol/L (137-145)
--- NOTE | 2021-07-05 09:18 | PM.DS.1 ---
History of Present Illness History of Present Illness Date Patient Seen: 07/05/21 Chief complaint: Alterer Mental Status Narrative: History of Present Illness History of Present Illness Narrative: 55yo male with a hx of hepatitis C progressing to liver failure status post liver transplant, CKD stage III, hypertension and GERD that presented to the ER with altered mental status. The patient is somnolent on my examination of him, and unable to engage in conversation, likely due to receiving IV Ativan 2 mg and Ketamine in the ER when he became combative with staff. Therefore, I am unable to acquire a history from him. History has been collected via chart review. It appears that he was evaluated recently for altered mental status, with no organic pathology having been found. There also seems to be a history of liver cancer, likely secondary to a hx of hepatitis C, which was reportedly cured with antiviral medication before he then underwent a liver transplant. It is unclear if he has an active EtOH abuse history or a remote one, if he uses illicit drugs other than marijuana, as history cannot be gathered from the patient. Discharge Providers Provider Date of admission: 06/30/21 16:53 Discharge Date: 07/05/21 Primary care physician: Kevin Porter MD Consults: 07/02/21 18:48 Consult to Physical Therapy Evaluate & Treat Comment: Physician Instructions: Evaluate and Treat 07/03/21 12:07 Consult to Home Health Routine Comment: Reason For Exam: Home Health RN, P.T, O.T. 07/04/21 11:13 Consult to Occupational Therapy Evaluate & Treat Comment: Physician Instructions: Evaluate and treat Discharge provider: Tatianna Watson DO Summary Hospital Course Discharge Diagnosis: HEPATIC ENCEPHALOPATHY; RESOLVED CIRRHOSIS OF THE LIVER HEPATOCARCINOMA PER HISTORY MEDICAL NONCOMPLIANCE PHYSICAL DECONDITIONING/DEBILITY ACUTE ON CHRONIC KIDNEY DISEASE STAGE 3-4 ELEVATED AMMONIA LEVEL HYPONATREMIA THROMBOCYTOPENIA Hospital Course: THIS IS A PLEASANT BUT NONCOMPLIANT 55-YEAR-OLD MALE ADMITTED TO THE HOSPITAL WITH ALTERED MENTAL STATUS. THIS WAS DUE TO ELEVATED AMMONIA LEVEL. HEPATIC ENCEPHALOPATHY SUSPECTED. REPORTEDLY PATIENT HAS BEEN NONCOMPLIANT IN TAKING HIS MEDICATIONS PRESCRIBED. IN ANY CASE HE WAS RESTARTED BACK ON HIS HOME MEDICATION AND HAS RESPONDED VERY WELL TO MANAGEMENT. LACTULOSE HAS BEEN ADDED TO RIFAMPIN WELL. MULTIPLE BOWEL MOVEMENT REPORTED SINCE ADMISSION. HIS MENTATION APPEARS TO BE BACK TO BASELINE. HE WILL BE DISCHARGED TO HOME UNDER THE CARE OF HIS CAREGIVER. HE WILL NEED ASSISTANCE WITH ALL ADL. 24 HOUR CARE IS RECOMMENDED AT THIS POINT Status at Discharge Cognitive/behavioral status at discharge: oriented and calm Functional status at discharge: uses cane/walker Overall status at discharge: patient is progressing back to baseline Time Spent with Patient Time spent: Greater than 30 minutes Exam Vital Signs (past 8 hours): - 07/05/21 02:15 07/05/21 04:16 07/05/21 05:11 Temperature 101.1 F H 98.8 F Pulse Rate 78 Respiratory Rate Blood Pressure 156/74 H Pulse Oximetry 07/05/21 06:51 07/05/21 08:46 Temperature 99.7 F H 98.6 F Pulse Rate 76 Respiratory Rate 18 Blood Pressure 169/93 H Pulse Oximetry 98 Oxygen Delivery Method Room Air Oxygen Flow Rate 0 Narrative Exam Narrative: NO ACUTE DISTRESS.? PATIENT IS ALERT ORIENTED X3. VITAL SIGNS STABLE HEAD ATRAUMATIC NORMOCEPHALIC NECK : SUPPLE WITHOUT ADENOPATHY NO CAROTID BRUITS EYE:? EOMI, PERRLA, NORMAL CONJUNCTIVA; NO JAUNDICE CHEST:? REGULAR RATE.? ? NO RUBS.? PMI IS NON DISPLACED.? NORMAL S1-S2 PULMONARY:? DECREASED BS OVER THE BASES.? MILD BIBASILAR CRACKLES NOTED; NO INCREASED DULLNESS TO PERCUSSION ABDOMEN:? OBESE BUT SOFT.? NONTENDER.? NONDISTENDED.? BOWEL SOUNDS ARE PRESENT IN ALL 4 QUADRANTS.? NO MASS. EXTREMITIES:? 2+ NONPITTING BILATERAL EXTREMITYEDEMA..? NO CYANOSIS CLUBBING NOTED. NEURO:? CRANIAL NERVES 2-12 GROSSLY INTACT. NO FOCAL NEUROLOGICAL DEFICIT NOTED. MSK:? NORMAL RANGE OF MOTION FOR AGE.? NO JOINT EFFUSION. SKIN: ? FAIR SKIN TURGOR; NO ECCHYMOSIS.? NO JAUNDICE PSYCH :? APPROPRIATE MOOD AND AFFECT.? ALERT AWAKE ORIENTED X3 Objective Labs Result Diagrams: 07/05/21 05:15 07/05/21 05:00 Labs: Laboratory Results - last 24 hr 07/05/21 07/05/21 05:00 05:15 WBC 8.9 RBC 3.95 L Hgb 12.9 L Hct 39.3 L MCV 99.6 MCH 32.6 MCHC 32.7 RDW 15.6 H Plt Count 133 L Neut % (Auto) 52.7 Lymph % (Auto) 37.2 Summers % (Auto) 9.0 Eos % (Auto) 0.1 L Baso % (Auto) 1.0 Neut # (Auto) 4700 Lymph # (Auto) 3300 Summers # (Auto) 800 Eos # (Auto) 0 Baso # (Auto) 100 Sodium 137 Potassium 4.1 Chloride 106 Carbon Dioxide 21 L BUN 44 H Creatinine 2.26 H Estimated GFR 30.1 L BUN/Creatinine Ratio 19.5 Glucose 110 H Calcium 8.8 PFSH Medical History Cirrhosis of liver CKD (chronic kidney disease) Compression fracture Depression Former smoker GERD (gastroesophageal reflux disease) Gout Hepatitis C (~2011) History of vertebral compression fracture Hypertension Immunosuppression Liver cancer Medical marijuana use GUILLE (obstructive sleep apnea) Osteoporosis PAC (premature atrial contraction) Pain management contract agreement Paroxysmal atrial fibrillation PVC (premature ventricular contraction) Thrombocytopenia Surgical History H/O right wrist surgery History of biliary duct stent placement (01/2013) History of open reduction and internal fixation (ORIF) procedure (09/22/20) History of removal of retained hardware (01/25/21) History of right hip replacement Hx of appendectomy (~1979) Hx of cholecystectomy (~2003) Hx of elbow surgery (~2003) Hx of elbow surgery (~2007) Hx of fusion of cervical spine Hx of hernia repair Hx of shoulder surgery (~2012) Hx of tonsillectomy (~1969) Liver transplant recipient (11/24/11) Presence of left artificial elbow joint Family History Mother Renal failure Father Diabetes mellitus Congestive heart failure Social History household members: caregiver and none Smoking Status: Former smoker alcohol intake: current Discharge Plan Discharge Plan Patient Disposition: Home Discharge orders & Medications Prescriptions: New lactulose 20 gram/30 mL Solution 30 gm PO TID Qty: 54621 0RF Continued furosemide 20 mg tablet 20 mg PO DAILY 0RF tamsulosin 0.4 mg Capsule 0.4 mg PO BEDTIME 0RF aspirin 81 mg Tablet,Delayed Release (Dr/Ec) 81 mg PO BID Qty: 90 0RF oxycodone 10 mg Tablet 10 mg PO Q3HR PRN (Reason: Pain, Severe (7-10)) Qty: 60 0RF quetiapine [Seroquel] 25 mg Tablet 25 mg PO BEDTIME 0RF cyclosporine modified 25 mg Capsule 25 mg PO BID 0RF allopurinol 100 mg Tablet 100 mg PO DAILY 0RF mycophenolate mofetil [CellCept] 500 mg Tablet 500 mg PO BID 0RF lidocaine [Lidoderm] 5 % Adhesive Patch,Medicated 1 patch TOPICAL DAILY 0RF ursodiol 300 mg Capsule 300 mg PO BID 0RF gabapentin 300 mg Capsule 300 mg PO BID 0RF Kellie-Ramila 0.8 mg Tablet 1 tab PO DAILY 0RF pyridoxine (vitamin B6) 100 mg Tablet 100 mg PO DAILY 0RF fentanyl [Duragesic] 25 mcg/hr Patch 72 Hour 25 mcg topical Q72H 0RF hydroxyzine pamoate [Vistaril] 25 mg Capsule 25 mg PO BEDTIME PRN (Reason: Itching) 0RF duloxetine [Cymbalta] 20 mg Capsule,Delayed Release(Dr/Ec) 20 mg PO DAILY 0RF ondansetron 4 mg tablet,disintegrating 4 mg PO TID-QID PRN (Reason: nausea and vomiting) Qty: 10 0RF pantoprazole [Protonix] 40 mg tablet,delayed release (DR/EC) 40 mg PO DAILY Qty: 30 0RF Xifaxan 550 mg Tablet 550 mg PO BID 0RF hydromorphone 4 mg tablet 4 mg PO Q6H PRN (Reason: pain) Qty: 30 0RF Narcan 4 mg/actuation [place],Non-Aerosol 1 spray INTRANASAL PER PKG DIR 30 Days Qty: 1 0RF Label Comments: patient has never used before Rx Instructions: 1 spray q2 minutes for opiate overdose metoprolol succinate 25 mg tablet extended release 24 hr 25 mg PO DAILY 0RF Discontinued acetaminophen [Tylenol] 325 mg capsule 650 mg PO TID 0RF Medication counseling provided by Pharmacist: No Follow up/Referrals: Kevin Porter MD [Primary Care Provider] - Diet/Activity/Treatments Diet: Low-fat, Low-sodium and Low-cholesterol Activity: TOLERATED Skin/Wound/Dressing Care Report to your healthcare provider any signs of infection, such as:: chills, fever, night sweats, increased pain and unusual drainage Visit Report/Discharge Packet Instructions: DI for Prescription Opioid Use Discharge Data Primary Care Provider: Kevin Porter
[2021-07-05] MEDS: HEPARIN 5,000 UNIT/ML VIAL 5000 UNIT SUBCUT ×2 (09:19→21:54)
--- NOTE | 2021-07-05 09:36 | PC.NURSE ---
Addendum entered by Peyman Lindsey R.N. 07/05/21 18:18: After GI medications were given as ordered patient fell asleep. Patient now currently awake, talking on the phone, reports he is feeling better. stomach pain is not all the way gone but diminished and nausea is improved. Addendum entered by Peyman Lindsey R.N. 07/05/21 16:12: Patient reported no further vomiting and was tolerating fluids by mouth, still declining to take his oral medications from this morning. Multiple episodes of loose yellowish stool continued. After reglan patient reports nausea improved but now states stomach has new severe pain that he has not had before. Patient having chills and low grade intermittent temperatures. Dr. Rust notified of patient's new complaint and came to bedside to evaluate. Original Note: Patient states he had a horrible night, he is very restless this morning and constantly changing position. Reports upset stomach again this morning, medicated with zofran and plans to hold off on taking his po morning med until his stomach can handle it. Then patient called this RN to room and says I tried drinking my koffi chip and it came back up again. Md notified of multiple episodes of vomiting and 10 episodes of loose stool. He states we are working on discharging the patient to home with his caregiver, patient is eager to be discharged to home. Bed alarm on for safety, call light within reach.
[2021-07-05 10:35] LABS: Ammonia (NH3) 21 umol/L (9-30)
--- NOTE | 2021-07-05 10:45 | OT.IP.TRT ---
Current Diagnoses Somnolence (06/30/21) Occupational Therapy Treatment Note M2 OT-IP Current Condition Start: 07/04/21 14:58 Freq: Status: Active Protocol: Document 07/04/21 14:59 [facility] (Rec: 07/04/21 15:15 CGR [id number]) Occupational Therapy Current Condition Current Condition Evaluation Date 07/04/21 Treatment Diagnosis AMS Diagnosis Onset Date 06/30/21 M3 OT- IP Subjective and Pain Start: 07/04/21 14:58 Freq: Status: Active Protocol: Document 07/05/21 10:42 [facility] (Rec: 07/05/21 10:51 [facility] [id number]) OT- Subjective Occupational Therapy Visit Type Type Treatment Note Visit Start Time 10:23 Visit Stop Time 10:40 Total Visit Minutes 17 Occupational Therapy Visit Comments Patient Comments Pt wanting to get up to use the bathroom. Patient/Caregiver Goals To go home. OT Pain Assessment Pain When Pain Assessed During Mobility Pain Present Pain Present Pain Reported M4 OT- IP ADL's Start: 07/04/21 14:58 Freq: Status: Active Protocol: Document 07/05/21 10:42 [facility] (Rec: 07/05/21 10:51 [facility] [id number]) OT ADL-Grooming Comments OT Grooming Comments Pt refused. HOwever able to insist on giving pt a soapy wash cloth to wash his hands as his hands were soiled after doing his hygiene after a bowel movement. OT ADL-Oral Care Comments Oral Care Comments Pt refused. OT ADL-Dressing General Eval Lower Body Dressing Ability Maximum Assistance Areas Needing Assistance Underpants/Brief,Socks Comments OT Dressing Comments Dependent for socks and assist to help get the brief over his feet. OT ADL-Toileting General Evaluation Toileting Ability Moderate Assistance Areas Needing Assistance Manage Clothing,Perform Perineal Hygiene OT ADL-Bathing Comments OT Bathing Comments not performed M5 OT- IP IADL's Start: 07/04/21 14:58 Freq: Status: Active Protocol: Document 07/04/21 14:59 [facility] (Rec: 07/04/21 15:15 [facility] [id number]) OT-Instrumental Activities of Daily Living Deficits IADL Deficits Identified Deficits Home Safety Awareness Awareness of Need for Assistance at Home Decreased Awareness Ability to Problem Solve Emergency Unable to Problem Solve Situations Medication Management Medication Management Comments Concerns regarding pt's ability to perform Money Management Money Management Comments Concerns regarding pt's ability to perform Meal Preparation Meal Preparation Comments Concerns regarding pt's ability to perform Roll Forming Supervisor Roll Forming Supervisor Caregiver Provides Assist Driving Driving Caregiver Provides Assist Driving Comments caregiver provides transportation M6 OT- IP Functional Cognition Start: 07/04/21 14:58 Freq: Status: Active Protocol: Document 07/05/21 10:42 [facility] (Rec: 07/05/21 10:51 [facility] [id number]) Cognitive Factors Limiting Selfcare Function Cognitive Comments Cognitive Assessment Comments Pt impulsive, decreased safety awareness and needing cues for completeness of hygiene needs. At this time if pt going home would benefit from 05/03 available assist. M7 OT- IP Mobility and Balance Start: 07/04/21 14:58 Freq: Status: Active Protocol: Document 07/05/21 10:42 [facility] (Rec: 07/05/21 10:51 [facility] [id number]) OT- Bed Mobility Assessment Supine to Sit Supine to Sit Assist Standby Assistance Scooting Scooting to Edge of Bed Standby Assistance OT-Transfer Assessment Sit to and From Stand Sit to and from Stand Contact Guard Assistance,1 Person Assistance Transfers Transfer Ability Contact Guard Assistance,1 Person Assistance Technique Transfer Destination Bed,Toilet Transfer Technique Stand Step Pivot Devices Transfer Assistive Devices Gait Belt,Front Wheeled Walker Comments Mobility Comments CGA for steadying and assist to help move the IV pole for the pt. OT- Balance Assessment Sitting Balance and Reactions Static Sitting Balance Ability Good Dynamic Sitting Balance Ability Fair Standing Balance and Reactions Static Standing Balance Ability Fair Dynamic Standing Balance Ability Fair M8 OT- IP Objective Assessments Start: 07/04/21 14:58 Freq: Status: Active Protocol: Document 07/04/21 14:59 [facility] (Rec: 07/04/21 15:15 [facility] [id number]) OT Gross Range of Motion Upper Extremity Range of Motion Assessment Within Functional Limits OT Strength Upper Extremity Strength Assessment Within Functional Limits OT- Coordination Assessment Upper Extremity Finger to Nose Test Within Functional Limits Finger Tapping Test Within Functional Limits OT-Muscle Tone Assessment Muscle Tone WNL Yes OT Sensation Assessment Edema Edema Absent M9 OT- IP Assessment and Plan Start: 07/04/21 14:58 Freq: Status: Active Protocol: Document 07/05/21 10:42 [facility] (Rec: 07/05/21 10:51 [facility] [id number]) OT Summary Assessment and Plan Potential Rehabilitation Potential Fair Analytic Complexity at Evaluation Moderate Summary OT Impairments Balance,Functional Cognition, Functional Mobility,Grooming, Dressing,Toileting,Bathing, Toilet Transfers,Shower Transfers,Activity Tolerance Progress Towards Goals Slow Progress due to Cognition Assessment Summary Pt poor awareness for safety, hygiene, and insight to his needs. Pt insistent on going home and that he will have caregiver assist at home. Goals Self-Feeding Goal Independent Grooming Goal Independent Dressing Goal Independent Toileting Goal Independent Toilet Transfer Goal Independent Shower Transfer Goal Independent Days to Meet Goals 10 Frequency of Treatment Frequency Of Treatment Once a Day Treatment Plan OT Treatment Plan ADL Training,Functional Cognition Training,Functional Mobility,Patient/Family Education,Discharge Planning Discharge Recommendations OT Discharge Recommendations Home with 05/03 Assist Available,Home Health,SNF Rehab Home versus SNF Transportation Needs at Discharge Private Vehicle
--- NOTE | 2021-07-05 11:45 | PT-IP ANOTE ---
Attempted to see pt at 11:45, pt refused therapy at this time due to nausea. Pt stated he has FWW for home use.
[2021-07-05] MEDS: METOCLOPRAMIDE 10 MG/2 ML INJ IV (14:08)
--- NOTE | 2021-07-05 14:30 | PT-IP ANOTE ---
Pt feeling unwell, nausea and diarrhea. Refused PT this PM.
[2021-07-05] MEDS: SUCRALFATE 1 GM TABLET PO ×3 (16:16→21:54)
[2021-07-05] MEDS: PANTOPRAZOLE 40 MG VIAL IV (16:16)
[2021-07-05] MEDS: FAMOTIDINE 20 MG TABLET 40 MG PO ×2 (16:16→21:54)
[2021-07-05 16:17] LABS: Lactate (Lactic Acid) 3.2 mmol/L (0.7-2.1)
[2021-07-05 16:32] LABS: Appearance Urine UA CLEAR; Bilirubin Urine UA NEGATIVE (NEGATIVE); Color Urine UA YELLOW; Glucose Urine UA NEGATIVE (Negative); Ketones Urine UA NEGATIVE (NEGATIVE); Leukocyte Esterase Urine UA NEGATIVE (NEGATIVE); Nitrite Urine UA NEGATIVE (Negative); Occult Blood Urine UA 3+ (Negative); Protein Urine UA 2+ (Negative); Specific Gravity Urine UA 1.015 (1.000-1.035); Urobilinogen Urine UA 0.2 E.U./dL (0.2)
--- NOTE | 2021-07-05 16:32 | CM.DPC ---
DCP continued: GISSELL spoke with [facility] caser in and let him know patient is most likely being DC home today with his healthcare financial analyst Hank. Patient had a rough night with nausea and vomiting so DC will be determined on patients N/V control. GISSELL heard back from [facility] they can not accept patient for HH services because patients [employer] insurance. So none of our HH companies will work with [employer] at this time and patient will DC home with no HH . GISSELL spoke with patients healthcare financial analyst Hank and updated her on possible DC today and she stated she will take him home when he is ready. Gaby Barros RN Case Manger
[2021-07-05 16:58] LABS: Bacteria Urine None Seen; Culture Indicated Urine Cult Not Indicated; Granular Casts Urine 0-1/LPF; RBC Urine 10-30/HPF (0-5/HPF); WBC Urine 0-1/HPF (0-5/HPF)
[2021-07-05 17:53] LABS: Reflexed Lactate in 2 Hours Y
[2021-07-05 18:37] LABS: HBsAg Screen Negative (Negative); Hepatitis A Antibody IgM Negative (Negative); Hepatitis B Core Antibody IgM Negative (Negative); Hepatitis C Antibody >11.0 s/co ratio (0.0-0.9); Hepatitis C Quant HCV Not Detected IU/mL (.)
[2021-07-05 19:06] LABS: Lactate 2HR (Lactic Acid Rflx) 1.9 mmol/L (0.7-2.1)
[2021-07-05] MEDS: QUETIAPINE 25 MG TABLET PO (21:54)
[2021-07-06 02:00] VITALS: RESP 16
[2021-07-06 04:18] VITALS: BP 165/92; PULSE 63; RESP 18; TEMP 37.6; O2SAT 99
[2021-07-06] MEDS: ONDANSETRON 4 MG ODT SL (04:22)
--- NOTE | 2021-07-06 09:21 | OT.IP.TRT ---
Current Diagnoses Somnolence (06/30/21) Occupational Therapy Treatment Note M2 OT-IP Current Condition Start: 07/04/21 14:58 Freq: Status: Active Protocol: Document 07/04/21 14:59 [facility] (Rec: 07/04/21 15:15 CGR [id number]) Occupational Therapy Current Condition Current Condition Evaluation Date 07/04/21 Treatment Diagnosis AMS Diagnosis Onset Date 06/30/21 M3 OT- IP Subjective and Pain Start: 07/04/21 14:58 Freq: Status: Active Protocol: Document 07/06/21 08:58 [facility] (Rec: 07/06/21 12:29 [facility] [id number]) OT- Subjective Occupational Therapy Visit Type Type Treatment Note Visit Start Time 08:58 Visit Stop Time 09:21 Total Visit Minutes 23 Occupational Therapy Visit Comments Patient Comments Pt wanting to use the bathroom . Patient/Caregiver Goals To go home. OT Pain Assessment Pain When Pain Assessed During Mobility Pain Present Pain Present Pain Reported M4 OT- IP ADL's Start: 07/04/21 14:58 Freq: Status: Active Protocol: Document 07/06/21 08:58 [facility] (Rec: 07/06/21 12:29 [facility] [id number]) OT [id number] Comments OT Self-Feeding Comments Pt not wanting to eat. OT ADL-Grooming Comments OT Grooming Comments Pt able to wash his hands while standing at the sink. OT ADL-Oral Care Comments Oral Care Comments Pt refused. OT ADL-Dressing General Eval Lower Body Dressing Ability Standby Assistance Areas Needing Assistance Underpants/Brief Comments OT Dressing Comments Today pt able to lee/doff his brief on his own today with good safety. OT ADL-Toileting General Evaluation Toileting Ability Standby Assistance Comments OT Toileting Comments VC for completeness for hygiene needs. OT ADL-Bathing Comments OT Bathing Comments Pt refusing at this time. M5 OT- IP IADL's Start: 07/04/21 14:58 Freq: Status: Active Protocol: Document 07/04/21 14:59 [facility] (Rec: 07/04/21 15:15 [facility] [id number]) OT-Instrumental Activities of Daily Living Deficits IADL Deficits Identified Deficits Home Safety Awareness Awareness of Need for Assistance at Home Decreased Awareness Ability to Problem Solve Emergency Unable to Problem Solve Situations Medication Management Medication Management Comments Concerns regarding pt's ability to perform Money Management Money Management Comments Concerns regarding pt's ability to perform Meal Preparation Meal Preparation Comments Concerns regarding pt's ability to perform Computational Physicist Computational Physicist Caregiver Provides Assist Driving Driving Caregiver Provides Assist Driving Comments caregiver provides transportation M6 OT- IP Functional Cognition Start: 07/04/21 14:58 Freq: Status: Active Protocol: Document 07/06/21 08:58 [facility] (Rec: 07/06/21 12:29 [facility] [id number]) Cognitive Factors Limiting Selfcare Function Cognitive Comments Cognitive Assessment Comments Pt continues to have poor safety awareness and decreased hygiene. Pt insistent on going home at this time. M7 OT- IP Mobility and Balance Start: 07/04/21 14:58 Freq: Status: Active Protocol: Document 07/06/21 08:58 [facility] (Rec: 07/06/21 12:29 [facility] [id number]) OT- Bed Mobility Assessment Supine to Sit Supine to Sit Assist Standby Assistance Scooting Scooting to Edge of Bed Standby Assistance OT-Transfer Assessment Sit to and From Stand Sit to and from Stand Standby Assistance,1 Person Assistance Transfers Transfer Ability Standby Assistance,1 Person Assistance Technique Transfer Destination Bed,Toilet Transfer Technique Stand Step Pivot Devices Transfer Assistive Devices Gait Belt,Front Wheeled Walker Comments Mobility Comments Pt steadier and now close SBA with FWW today. OT- Balance Assessment Sitting Balance and Reactions Static Sitting Balance Ability Good Dynamic Sitting Balance Ability Fair Standing Balance and Reactions Static Standing Balance Ability Fair Dynamic Standing Balance Ability Fair M8 OT- IP Objective Assessments Start: 07/04/21 14:58 Freq: Status: Active Protocol: Document 07/04/21 14:59 [facility] (Rec: 07/04/21 15:15 [facility] [id number]) OT Gross Range of Motion Upper Extremity Range of Motion Assessment Within Functional Limits OT Strength Upper Extremity Strength Assessment Within Functional Limits OT- Coordination Assessment Upper Extremity Finger to Nose Test Within Functional Limits Finger Tapping Test Within Functional Limits OT-Muscle Tone Assessment Muscle Tone WNL Yes OT Sensation Assessment Edema Edema Absent M9 OT- IP Assessment and Plan Start: 07/04/21 14:58 Freq: Status: Active Protocol: Document 07/06/21 08:58 [facility] (Rec: 07/06/21 12:29 [facility] [id number]) OT Summary Assessment and Plan Potential Rehabilitation Potential Good Analytic Complexity at Evaluation Moderate Summary OT Impairments Balance,Functional Cognition, Functional Mobility,Grooming, Dressing,Toileting,Bathing, Toilet Transfers,Shower Transfers,Activity Tolerance Progress Towards Goals Slow Progress due to Cognition Assessment Summary Pt looking to go home today. Pt to have caregivers at home to assist. Goals Self-Feeding Goal Independent Grooming Goal Independent Dressing Goal Independent Toileting Goal Independent Toilet Transfer Goal Independent Shower Transfer Goal Independent Days to Meet Goals 5 Frequency of Treatment Frequency Of Treatment Once a Day Treatment Plan OT Treatment Plan ADL Training,Functional Cognition Training,Functional Mobility,Patient/Family Education,Discharge Planning Discharge Recommendations OT Discharge Recommendations Home with 05/03 Assist Available,Home Health Transportation Needs at Discharge Private Vehicle
[2021-07-06 10:12] VITALS: BP 159/71; PULSE 66; RESP 18; TEMP 36.7; O2SAT 98
--- NOTE | 2021-07-06 10:14 | CM.DPC ---
Addendum entered by Lara Finley R.N. 07/06/21 10:20: Just read notes from JOE Griffin Planer Setup Operator yesterday. [facility] will also not accept patient, so at this time, home health is not an option. Original Note: DCP Cont: Discussed patient during team rounds, and most likely will DC home today. Left a message with Helena at [facility] to see if they may consider patient for services, for [facility] have declined him. Left [facility] a message that patient most likely will discharge today. He is aware, that patient will need to be re assessed for more service, and has a [facility] comp field case manager, Rachel. In the message, let Walter know that there may need to be a consideration for a POA for patient, should he get to the point that he can't make decisions for himself. P: Patient may be discharging home today, will need to contact caregiver, Hank, for slate picker. Lara Finley RN/Computer Builder
[2021-07-06] MEDS: CYCLOSPORINE, MODIFIED 25 MG CAPSULE PO (10:41)
[2021-07-06] MEDS: MYCOPHENOLATE MOFETIL 500 MG TABLET PO (10:41)
[2021-07-06] MEDS: HEPARIN 5,000 UNIT/ML VIAL 5000 UNIT SUBCUT (10:41)
[2021-07-06] MEDS: RIFAXIMIN 550 MG TABLET PO (10:45)
[2021-07-06] MEDS: SUCRALFATE 1 GM TABLET PO (10:45)
[2021-07-06] MEDS: ursodioL 300 MG CAPSULE PO (10:45)
--- NOTE | 2021-07-06 11:12 | PC.NURSE ---
Addendum entered by Cyndi Bear R.N. 07/06/21 14:41: reassessed BP after giving losartan and nefedipine, 138/75. pt denied any light headedness or dizziness. discharge instructions given. Original Note: pt hypertensive BP 160/102 while working with PT. notified provider.
--- NOTE | 2021-07-06 11:30 | PT.IPTN ---
Current Diagnoses Somnolence (06/30/21) Physical Therapy Treatment Note M2 PT-IP Current Condition Start: 07/03/21 08:51 Freq: NEEDED Status: Active Protocol: Document 07/06/21 10:48 [facility] (Rec: 07/06/21 13:52 [facility] [id number]) Physical Therapy Current Condition Current Condition Evaluation Date 07/03/21 Treatment Diagnosis AMS, impaired gait and balance Onset Date 06/30/21 M3 PT-IP Subjective Start: 07/03/21 08:51 Freq: NEEDED Status: Active Protocol: Document 07/06/21 10:48 [facility] (Rec: 07/06/21 13:52 SP [id number]) Subjective Physical Therapy Visit Type Type Treatment Note Visit Start Time 10:48 Visit Stop Time 11:30 Total Visit Minutes 42 Notes Pt vitals throughout tx: supine via Nursing: BP 99/61 seated within 10min with CONSUMER INSIGHTS SPECIALIST: BP 198/105 HR 68 99% on RA seated EOB after walking room: 160/102 seated EOB after walk in hallway: 175/106 seated rested in chair 2 min: 145/ 68 Hospitalist notified nurse and hypertension, provided ok to mobilize stair assessment. supine after stair mgt: 163/78 HR 64. Number of CONSUMER INSIGHTS SPECIALIST Visits 2 Physical Therapy Visit Comments Patient Comments Pt agreeable to working with therapy. Patient Goals Pt wants to go home with caregivers to assist him. Therapy Pain Assessment Pain Present Pain Present Denied Pain M4 PT-IP Mobility and Gait Start: 07/03/21 08:51 Freq: NEEDED Status: Active Protocol: Document 07/06/21 10:48 [facility] (Rec: 07/06/21 13:52 SP [id number]) PT-Bed Mobility Assessment Rolling Level of Assist Independent Supine to Sit Supine to Sit Independent Sit to Supine Sit to Supine Independent Scooting Scooting to Edge of Bed Independent PT-Transfer Assessment Sit to and From Stand Sit to and from Stand Contact Guard Assistance,Use of Upper Extremities Equipment Transfer Assistive Device Gait Belt,Front Wheeled Walker Transfers Transfer Destination Bed,Chair Transfer Technique Pt ambulated w/ FWW Transfer Ability Level of Assist Standby Assistance,Contact Guard Assistance,Use of Upper Extremities Comments Mobility Comments CONSUMER INSIGHTS SPECIALIST reviewed post op R knee ex : AP, heel slide approx 2- almost full flexion AROM. Pt hypertension upon sitting 198/ 105 states feels fine, see above notes for futher assessments. Completed elevated supine>sit I, sit> stand CGA using FWW, provided safety cues for proper HP throughout for safety ascend/ descend sit. Pt ambulated R side bed<>room bench using FWW CG- 5%A due to over wt shift turning L recovery assist with cuing for awarenesss staying centered inside fWW for safety support, tends to lean to opposite side turning. Extra time spent safety assessment of BPs due to noted hypertension. CONSUMER INSIGHTS SPECIALIST notified nurse which notified hospitalist Dr Pagan, overheard may be providing further med assist before safe planned DC early afternoon. Pt walked further into hallway aporx 80 ft total w/ fWW SBA initially CGA- 5%A during L turn and cues for trunk alignment centered inFWW for safety. Pt unaware of trunk righting R, no LOB. Pt returned to chair CGA, cues for HP slow descent chair. After 2 min rest. Pt reported willing to assess stairs, not sure if friends or local firemen building ramp to top step for him as has been discussed over phone. Pt ambulated to w/c in hallway usuing FWW CGA, wheeled down stairs, ascend/descend 6 stairs using BHR has at home step to 3 steps ascend/descend , step over step 2nd set CGA, no LOB, stable BLE. Pt walked back to room w/ FWW w/c follow , not needed approx 120 ft. Pt returned to bed when arrived in room. sit>supine I. Pt had call light and all needs in reach before left. Discussed due to deviation leans during gait, recommending 24/ for safety at home with caregivers to reduce risk for falls. Pt stated his caregiver Hank or friend Thai will be with him at home. Gait Assessment Gait Gait Assistance Required: Contact Guard Assist,Minimum Assistance Distance (Feet) 120 Able to Maintain Weight Bearing Status Yes During Gait Assistive Devices Assistive Device Gait Belt,Front Wheeled Walker Orthotic/Prosthetic Devices or Brace: No Gait Deviations General Gait Pattern Antalgic,Decreased Stride Length,Decreased Feet Clearance,Lateral Trunk Lean Factors Limiting Gait Function Factors Limiting Gait Function Decreased Activity Tolerance, Decreased Strength,Difficulty Following Directions,Poor Balance,Poor Safety Awareness Comments Gait Comments Pt continues to veer R during L turns w/ FWW, CGA- 5%A. Stair Climbing Assessment Evaluation Level of Assist On Stairs Contact Guard Assistance Devices Stair Climbing Assistive Devices Left Railing,Right Railing Technique/Endurance Stair Climbing Direction Ascend and Descend Stair Climbing Technique Step Over Step,Step to Step Number of Steps Climbed 3 Stair Climbing Set # Repetitions (reps) 2 Comments Stair Climbing Comments see mobility comments PT-Balance Assessment Sitting Balance and Reactions Static Sitting Balance Ability Good Dynamic Sitting Balance Ability Fair Standing Balance and Reactions Static Standing Balance Ability Good Dynamic Standing Balance Ability Fair Device Used FWW M5 PT-IP Objective Assessments Start: 07/03/21 08:51 Freq: NEEDED Status: Active Protocol: Document 07/03/21 11:08 [facility] (Rec: 07/03/21 12:50 [facility] [id number]) Orientation Orientation/Cognition Level of Alertness Alert Orientation Name,Birthday,Month,Year,Place Safety Awareness Decreased Safety Awareness Memory Description Short Term Impaired Comments He is impulsive and not aware of his current condition. He is cooperative and friendly during treatment. He initially stated it was 2000 but when questioned was able to correct it to 2020. He was worried about his out-pt Physical therapy this visit. Gross Range of Motion Upper Extremity ROM Assessment Within Functional Limits Lower Extremity ROM Assessment Within Functional Limits Impairments he reports good recovery of right knee s/p TKA, measurements not taken this visit Strength Upper Extremity Strength Assessment Within Functional Limits Lower Extremity Strength Assessment Bilaterally Impaired Comments Strength Comments Generalized decrease in LE strength with standing and gait which appears related to his medical condition. He has difficulty concentrating to complete MMT. Coordination Assessment Gross Coordination Gross Coordination Impaired Assessment Coordination Comments mild intermittent tremors, mild to moderate decreased coordination with functional tasks Sensation Assessment Sensation Gross Sensation WNL Comments Sensation Comments he denies numbness/tingling Muscle Tone Muscle Tone WNL Yes M6 PT-IP Treatment Start: 07/03/21 08:51 Freq: NEEDED Status: Active Protocol: Document 07/06/21 10:48 SP (Rec: 07/06/21 13:52 SP [id number]) Physical Therapy Treatment Education Education Provided Safety M7 PT-IP Assessment and Plan Start: 07/03/21 08:51 Freq: NEEDED Status: Active Protocol: Document 07/06/21 10:48 SP (Rec: 07/06/21 13:52 SP [id number]) PT Summary Assessment and Plan Potential Rehabilitation Potential Good Status of Condition at Evaluation Evolving Summary Impairments Pain,ROM,Strength,Balance, Coordination,Cognition, Transfers,Gait,Activity Tolerance Progress Towards Goals Progressing Toward Goals,Slow Progress due to Medical Issues ,Slow Progress due to Activity Tolerance Assessment Summary Pt required extra time spent vital assessment throughout mobiltiy due to hypertension. Nursing/ hospitalist notified. Pt I bed mobility, CGA with transfers, CGA 5%A during gait with lateral lean L turns support with cues for trunk alignment. Pt is ok to return home by mobility stand point with 24/7 assist of caregivers /friend available when BP stable range and pt is medically cleared. Goals Bed Mobility Goal Independent Transfer Goal Independent Gait Goal Independent Gait Distance 250 feet Other Goals Up and down 3 steps with rail and CG assist Days to Meet Goals 5 Frequency of Treatment Frequency Of Treatment Once a Day Treatment Plan Physical Therapy Treatment Plan Bed Mobility Training,Transfer Training,Gait Training, Therapeutic Exercise,Balance Retraining,Discharge Planning, Neuromuscular Re-ed, Coordination Retraining Other Recommendations and Next Treatment Vitals assessment, LE ex, Focus balance activities, distance gait. Recommendations To Nursing Amount of Assist Needed 1 Person Assist Discharge Recommendations PT Discharge Recommendations Home with 24/7 Assist Available,Home Health, Outpatient PT Other Discharge Recommendations Will need 24/7 assist for him to return home at this time. Transportation Needs at Discharge Private Vehicle
--- NOTE | 2021-07-06 11:30 | PT.IPTN ---
Current Diagnoses Somnolence (06/30/21) Physical Therapy Treatment Note M2 PT-IP Current Condition Start: 07/03/21 08:51 Freq: NEEDED Status: Active Protocol: Document 07/06/21 10:48 SP (Rec: 07/06/21 13:52 SP [id number]) Physical Therapy Current Condition Current Condition Evaluation Date 07/03/21 Treatment Diagnosis AMS, impaired gait and balance Onset Date 06/30/21 M3 PT-IP Subjective Start: 07/03/21 08:51 Freq: NEEDED Status: Active Protocol: Document 07/06/21 10:48 SP (Rec: 07/06/21 13:52 SP [id number]) Subjective Physical Therapy Visit Type Type Treatment Note Visit Start Time 10:48 Visit Stop Time 11:30 Total Visit Minutes 42 Notes Pt vitals throughout tx: supine via Nursing: BP 99/61 seated within 10min with [employer]: BP 198/105 HR 68 99% on RA seated EOB after walking room: 160/102 seated EOB after walk in hallway: 175/106 seated rested in chair 2 min: 145/ 68 Hospitalist notified nurse and hypertension, provided ok to mobilize stair assessment. supine after stair mgt: 163/78 HR 64. Number of [employer] ELECTRICIAN Visits 2 Physical Therapy Visit Comments Patient Comments Pt agreeable to working with therapy. Patient Goals Pt wants to go home with caregivers to assist him. Therapy Pain Assessment Pain Present Pain Present Denied Pain M4 PT-IP Mobility and Gait Start: 07/03/21 08:51 Freq: NEEDED Status: Active Protocol: Document 07/06/21 10:48 SP (Rec: 07/06/21 13:52 SP [id number]) PT-Bed Mobility Assessment Rolling Level of Assist Independent Supine to Sit Supine to Sit Independent Sit to Supine Sit to Supine Independent Scooting Scooting to Edge of Bed Independent PT-Transfer Assessment Sit to and From Stand Sit to and from Stand Contact Guard Assistance,Use of Upper Extremities Equipment Transfer Assistive Device Gait Belt,Front Wheeled Walker Transfers Transfer Destination Bed,Chair Transfer Technique Pt ambulated w/ FWW Transfer Ability Level of Assist Standby Assistance,Contact Guard Assistance,Use of Upper Extremities Comments Mobility Comments [employer] reviewed post op R knee ex : AP, heel slide approx 2- almost full flexion AROM. Pt hypertension upon sitting 198/ 105 states feels fine, see above notes for futher assessments. Completed elevated supine>sit I, sit> stand CGA using FWW, provided safety cues for proper HP throughout for safety ascend/ descend sit. Pt ambulated R side bed<>room bench using FWW CG- 5%A due to over wt shift turning L recovery assist with cuing for awarenesss staying centered inside fWW for safety support, tends to lean to opposite side turning. Extra time spent safety assessment of BPs due to noted hypertension. [employer] notified nurse which notified hospitalist Dr Chema Chan, overheard may be providing further med assist before safe planned DC early afternoon. Pt walked further into hallway aporx 80 ft total w/ fWW SBA initially CGA- 5%A during L turn and cues for trunk alignment centered inFWW for safety. Pt unaware of trunk righting R, no LOB. Pt returned to chair CGA, cues for HP slow descent chair. After 2 min rest. Pt reported willing to assess stairs, not sure if friends or local firemen building ramp to top step for him as has been discussed over phone. Pt ambulated to w/c in hallway usuing FWW CGA, wheeled down stairs, ascend/descend 6 stairs using BHR has at home step to 3 steps ascend/descend , step over step 2nd set CGA, no LOB, stable BLE. Pt walked back to room w/ FWW w/c follow , not needed approx 120 ft. Pt returned to bed when arrived in room. sit>supine I. Pt had call light and all needs in reach before left. Discussed due to deviation leans during gait, recommending 24/7 for safety at home with caregivers to reduce risk for falls. Pt stated his caregiver Hank or friend Thai will be with him at home. Gait Assessment Gait Gait Assistance Required: Contact Guard Assist,Minimum Assistance Distance (Feet) 120 Able to Maintain Weight Bearing Status Yes During Gait Assistive Devices Assistive Device Gait Belt,Front Wheeled Walker Orthotic/Prosthetic Devices or Brace: No Gait Deviations General Gait Pattern Antalgic,Decreased Stride Length,Decreased Feet Clearance,Lateral Trunk Lean Factors Limiting Gait Function Factors Limiting Gait Function Decreased Activity Tolerance, Decreased Strength,Difficulty Following Directions,Poor Balance,Poor Safety Awareness Comments Gait Comments Pt continues to veer R during L turns w/ FWW, CGA- 5%A. Stair Climbing Assessment Evaluation Level of Assist On Stairs Contact Guard Assistance Devices Stair Climbing Assistive Devices Left Railing,Right Railing Technique/Endurance Stair Climbing Direction Ascend and Descend Stair Climbing Technique Step Over Step,Step to Step Number of Steps Climbed 3 Stair Climbing Set # Repetitions (reps) 2 Comments Stair Climbing Comments see mobility comments PT-Balance Assessment Sitting Balance and Reactions Static Sitting Balance Ability Good Dynamic Sitting Balance Ability Fair Standing Balance and Reactions Static Standing Balance Ability Good Dynamic Standing Balance Ability Fair Device Used FWW M5 PT-IP Objective Assessments Start: 07/03/21 08:51 Freq: NEEDED Status: Active Protocol: Document 07/03/21 11:08 DLM (Rec: 07/03/21 12:50 DLM [id number]) Orientation Orientation/Cognition Level of Alertness Alert Orientation Name,Birthday,Month,Year,Place Safety Awareness Decreased Safety Awareness Memory Description Short Term Impaired Comments He is impulsive and not aware of his current condition. He is cooperative and friendly during treatment. He initially stated it was 2000 but when questioned was able to correct it to 2020. He was worried about his out-pt Physical therapy this visit. Gross Range of Motion Upper Extremity ROM Assessment Within Functional Limits Lower Extremity ROM Assessment Within Functional Limits Impairments he reports good recovery of right knee s/p TKA, measurements not taken this visit Strength Upper Extremity Strength Assessment Within Functional Limits Lower Extremity Strength Assessment Bilaterally Impaired Comments Strength Comments Generalized decrease in LE strength with standing and gait which appears related to his medical condition. He has difficulty concentrating to complete MMT. Coordination Assessment Gross Coordination Gross Coordination Impaired Assessment Coordination Comments mild intermittent tremors, mild to moderate decreased coordination with functional tasks Sensation Assessment Sensation Gross Sensation WNL Comments Sensation Comments he denies numbness/tingling Muscle Tone Muscle Tone WNL Yes M6 PT-IP Treatment Start: 07/03/21 08:51 Freq: NEEDED Status: Active Protocol: Document 07/06/21 10:48 SP (Rec: 07/06/21 13:52 SP [id number]) Physical Therapy Treatment Education Education Provided Safety M7 PT-IP Assessment and Plan Start: 07/03/21 08:51 Freq: NEEDED Status: Active Protocol: Document 07/06/21 10:48 SP (Rec: 07/06/21 13:52 SP [id number]) PT Summary Assessment and Plan Potential Rehabilitation Potential Good Status of Condition at Evaluation Evolving Summary Impairments Pain,ROM,Strength,Balance, Coordination,Cognition, Transfers,Gait,Activity Tolerance Progress Towards Goals Progressing Toward Goals,Slow Progress due to Medical Issues ,Slow Progress due to Activity Tolerance Assessment Summary Pt required extra time spent vital assessment throughout mobiltiy due to hypertension. Nursing/ hospitalist notified. Pt I bed mobility, CGA with transfers, CGA 5%A during gait with lateral lean L turns support with cues for trunk alignment. Pt is ok to return home by mobility stand point with 24/7 assist of caregivers /friend available when BP stable range and pt is medically cleared. Goals Bed Mobility Goal Independent Transfer Goal Independent Gait Goal Independent Gait Distance 250 feet Other Goals Up and down 3 steps with rail and CG assist Days to Meet Goals 5 Frequency of Treatment Frequency Of Treatment Once a Day Treatment Plan Physical Therapy Treatment Plan Bed Mobility Training,Transfer Training,Gait Training, Therapeutic Exercise,Balance Retraining,Discharge Planning, Neuromuscular Re-ed, Coordination Retraining Other Recommendations and Next Treatment Vitals assessment, LE ex, Focus balance activities, distance gait. Recommendations To Nursing Amount of Assist Needed 1 Person Assist Discharge Recommendations PT Discharge Recommendations Home with 24/7 Assist Available,Home Health, Outpatient PT Other Discharge Recommendations Will need 24/7 assist for him to return home at this time. Transportation Needs at Discharge Private Vehicle
[2021-07-06] MEDS: LOSARTAN 25 MG TABLET PO (11:34)
[2021-07-06] MEDS: NIFEdipine 30 MG TAB ER PO (11:34)
[2021-07-06 11:57] VITALS: O2SAT 100
--- NOTE | 2021-07-18 14:29 | CM.DPC ---
KRISSY received a call from pt's [facility] GISSELL Martin ([phone]) inquiring about ways that he can help pt follow through/get connected to resources to reduce his risk of readmit. Provided JUSTICE BORRERO Rachel contact info again and JUSTICE CG Hank contact info and discussed possible need for increased JUSTICE hours and the urgency for pt completing DPOA pwk due to his low SLUMS score and likely need for DPOA in near future and Walter willing to follow up with pt and JUSTICE CG on this. Also discussed inquiring with pt and JUSTICE CG the barriers to pt taking his night time meds consistently to reduce his ammonia levels and behaviors when his levels are off. KRISSY also inquired if Walter was aware of the [employer] program and provided Sanjay Dinh contact info in case pt would benefit from the program. ZENA Montaño
== END 2021-07-06 12:50 | disposition home or self-care (01) | DRG 279 ==
LOC: ED 13:49 → AC 16:53
PROVIDERS: Hospitalist; Nurse Practitioner Family; Admitting Provider Student in an Organized Health Care Education/Training Program; Emergency Provider Emergency Medicine; Family Provider Internal Medicine; PCP Internal Medicine; Referring Provider Emergency Medicine; Visit Provider Student in an Organized Health Care Education/Training Program
DX: K72.00 Acute and subacute hepatic failure without coma (principal); E72.20 Disorder of urea cycle metabolism, unspecified; Z94.4 Liver transplant status; I12.9 Hypertensive chronic kidney disease with stage 1 through stage 4 chronic kidney disease, or unspecified chronic kidney disease; I48.0 Paroxysmal atrial fibrillation; D84.89 Other immunodeficiencies; N18.4 Chronic kidney disease, stage 4 (severe); R12 Heartburn; F32.A Depression, unspecified; K21.9 Gastro-esophageal reflux disease without esophagitis; Z20.822 Contact with and (suspected) exposure to COVID-19; Z87.891 Personal history of nicotine dependence; Z91.14 Patient's other noncompliance with medication regimen
CPT/HCPCS: 36415; 70450; 71045; 80048; 80053; 80074; 80305; 80320; 80329; 81001; 82140; 82550; 82805; 82962; 83605; 83735; 84100; 84145; 84443; 84484; 85007; 85025; 85610; 87040; 87389; 87635; 93005; 94760; 96372; 96374; 97116; 97129; 97162; 97166; 97530; 97535; 99285; 99291; 99292; C9803; A9270; C9113; G0480; J0780; J1644; J2060; J2405; J2765; J7515

== ENCOUNTER 2021-11-26 02:05 | Emergency (ER) | payer OTHER, MEDICAID, SELFPAY ==
[2021-06-30 17:55] VITALS: BMI 30.1
[2021-11-26] VITALS (46 sets, daily range): BP systolic 109–152; BP diastolic 61–103; PULSE 60–124; RESP 9–28; TEMP 36.4–36.6; O2SAT 91–100; BMI 32.8
--- NOTE | 2021-11-26 02:10 | ED_ITS ---
HPI - Altered Mental Status <Bogdan DO Marc - Last Filed: 11/27/21 04:37> General Chief Complaint: Fall Stated Complaint: fall Time Seen by Provider: 11/26/21 02:08 History of Present Illness HPI narrative: 55-year-old male former smoker with extensive alcohol history, hepatitis-C, liver transplant ( in 2013) presents by EMS for evaluation of a dizzy and l ightheaded episode resulting in a fall with head injury as well as back and abdominal pain. He denies any nausea or vomiting. He has had no fever chills and denies any change in bowel habits. He says he drank at least a six-pack tonight which is pretty normal for him. He denies chest pain or shortness of breath. He is a poor historian and a bit confused. He denies any abnormal bleeding, no dysuria, frequency or urgency, no dark or tarry stool Related Data Home Medications Medication Instructions Recorded Confirmed allopurinol 100 mg tablet 100 mg PO DAILY 01/14/20 07/01/21 cyclosporine modified 25 mg capsule 25 mg PO BID 01/14/20 07/01/21 duloxetine 20 mg capsule,delayed 20 mg PO DAILY 01/14/20 07/01/21 release (Cymbalta) fentanyl 25 mcg/hr transdermal 25 mcg TOPICAL Q72H 01/14/20 07/01/21 patch (Duragesic) gabapentin 300 mg capsule 300 mg PO BID 01/14/20 07/01/21 hydroxyzine pamoate 25 mg capsule 25 mg PO BEDTIME PRN 01/14/20 07/01/21 (Vistaril) lidocaine 5 % topical patch 1 patch TOPICAL DAILY 01/14/20 07/04/21 (Lidoderm) mycophenolate mofetil 500 mg 500 mg PO BID 01/14/20 07/01/21 tablet (CellCept) pyridoxine (vitamin B6) 100 mg 100 mg PO DAILY 01/14/20 05/09/21 tablet quetiapine 25 mg tablet (Seroquel) 25 mg PO BEDTIME 01/14/20 07/01/21 ursodiol 300 mg capsule 300 mg PO BID 01/14/20 07/01/21 vitamin B complex-vitamin C-folic 1 tab PO DAILY 01/14/20 05/09/21 acid 0.8 mg tablet (Kellie-Ramila) furosemide 20 mg tablet 20 mg PO DAILY 07/26/20 07/01/21 rifaximin 550 mg tablet (Xifaxan) 550 mg PO BID 09/20/20 07/01/21 metoprolol succinate 25 mg 25 mg PO DAILY 01/25/21 07/01/21 tablet,extended release 24 hr tamsulosin 0.4 mg capsule 0.4 mg PO BEDTIME 04/27/21 07/01/21 Previous Rx's Medication Instructions Recorded ondansetron 4 mg disintegrating 4 mg PO TID-QID PRN #10 tab 05/14/20 tablet pantoprazole 40 mg tablet,delayed 40 mg PO DAILY #30 tab 05/14/20 release (Protonix) hydromorphone 4 mg tablet 4 mg PO Q6H PRN #30 tab 09/24/20 naloxone 4 mg/actuation nasal 1 spray INTRANASAL PER PKG DIR 30 09/29/20 spray (Narcan) Days #1 ea aspirin 81 mg tablet,delayed 81 mg PO BID #90 tab 05/11/21 release oxycodone 10 mg tablet 10 mg PO Q3HR PRN #60 tab 05/11/21 lactulose 20 gram/30 mL oral 30 gm PO TID #96131 ml 07/05/21 solution diphenhydramine HCl 12.5 mg/5 mL 25 mg (10 mL) PO Q4-6H PRN #200 ml 07/06/21 oral liquid (Benadryl Allergy) famotidine 20 mg tablet (Pepcid AC) 20 mg PO BEDTIME #120 tab 07/06/21 losartan 25 mg tablet 25 mg PO DAILY #60 tab 07/06/21 nifedipine 30 mg tablet,extended 30 mg PO DAILY #60 tab 07/06/21 release 24 hr sucralfate 1 gram tablet 1 gm PO ACHS #240 tab 07/06/21 Allergies Allergy/AdvReac Type Severity Reaction Status Date / Time adhesive tape Allergy Severe Paper Verified 11/26/21 02:17 tape causes big sores doxylamine [From NyQuil] Allergy Severe Seizure Verified 11/26/21 02:17 venom-honey bee Allergy Severe Wheezing, Verified 11/26/21 02:17 [BEE VENOM (HONEY BEE)] throat closing pseudoephedrine Allergy Pt does Verified 11/26/21 02:17 not recall codeine AdvReac Severe Vomiting Verified 11/26/21 02:17 dextromethorphan AdvReac Severe Seizure Verified 11/26/21 02:17 NSAIDS (Non-Steroidal AdvReac Severe Abdominal Verified 11/26/21 02:17 Anti-Inflamma Pain copper AdvReac Intermediate Soaks Verified 11/26/21 02:17 into my body and hurts my jaw and joints morphine AdvReac Intermediate Vomiting Verified 11/26/21 02:17 oxycodone AdvReac Intermediate Vomiting Verified 11/26/21 02:17 tizanidine AdvReac Unknown Pt does Verified 11/26/21 02:17 not recall Review of Systems <Bogdan Tran DO - Last Filed: 11/27/21 04:37> Review of Systems Narrative: GENERAL: See HPI HEENT: Denies sinus pain, ear pain, sore throat, difficulty swallowing, dizziness. RESPIRATORY: Denies dyspnea, cough, wheezing, hemoptysis, sputum. CARDIOVASCULAR: Denies chest pain, palpitations, orthopnea, edema, GASTROINTESTINAL: See HPI : Denies dysuria, frequency, incontinence, hematuria, urinary retention. MUSCULOSKELETAL: See HPI SKIN: Denies rash, skin lesions, or other NEUROLOGIC: Denies weakness, headache, numbness, change in speech, confusion, seizures, incoordination. PSYCHIATRIC: No concerning psychosocial issues. 12 point review of systems is negative except for those stated above Patient History <Bogdan Tran DO - Last Filed: 11/27/21 04:37> Medical History Cirrhosis of liver CKD (chronic kidney disease) Compression fracture Depression Former smoker GERD (gastroesophageal reflux disease) Gout Hepatitis C (~2011) History of vertebral compression fracture Hypertension Immunosuppression Liver cancer Medical marijuana use GUILLE (obstructive sleep apnea) Osteoporosis PAC (premature atrial contraction) Pain management contract agreement Paroxysmal atrial fibrillation PVC (premature ventricular contraction) Thrombocytopenia Surgical History H/O right wrist surgery History of biliary duct stent placement (01/2013) History of open reduction and internal fixation (ORIF) procedure (09/22/20) History of removal of retained hardware (01/25/21) History of right hip replacement Hx of appendectomy (~1979) Hx of cholecystectomy (~2003) Hx of elbow surgery (~2003) Hx of elbow surgery (~2007) Hx of fusion of cervical spine Hx of hernia repair Hx of shoulder surgery (~2012) Hx of tonsillectomy (~1969) Liver transplant recipient (11/24/11) Presence of left artificial elbow joint Family History Mother Renal failure Father Diabetes mellitus Congestive heart failure Social History household members: caregiver and none Smoking Status: Former smoker alcohol intake: current Smoking Status: Former smoker tobacco type: cigarettes alcohol intake frequency: a few times a month Alcohol type: hard liquor Substance Use Type: marijuana Exam <Bogdan Tran DO - Last Filed: 11/27/21 04:37> Narrative Exam Narrative: GENERAL: [55] year old patient appears older than stated age. Well-developed patient, in mild distress. Slurring his words, smells of alcohol, GCS 14 HEAD: Atraumatic. Normocephalic. EYES: Pupils equal round and reactive. No hyphema Extraocular motions intact. No scleral icterus. No injection or drainage. ENT: Nose without bleeding, purulent drainage. No nasal septal hematoma Throat without erythema, tonsillar hypertrophy or exudate. Airway patent. NECK: Trachea midline. Non tender CARDIOVASCULAR: Regular rate and rhythm without murmurs, gallops, or rubs. RESPIRATORY: Clear to auscultation. Breath sounds equal bilaterally. No wheezes, rales, or rhonchi. GASTROINTESTINAL: Abdomen soft, moderate tenderness throughout EXTREMITIES: No edema or joint tenderness. 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 Patient exam notes decreased range of motion and muscle spasm, but no CVA tenderness, or vertebral point tenderness. There are no symptoms of cauda equina such as saddle anesthesia, and decreased reflexes, decreased sensation or strength. NEURO: AOx3. SKIN: No rash or erythema of visible areas Initial Vital Signs Initial Vital Signs: Vital Signs Temperature 97.9 F 11/26/21 02:05 Pulse Rate 68 11/26/21 02:05 Respiratory Rate 18 11/26/21 02:05 Blood Pressure 133/85 11/26/21 02:05 Pulse Oximetry 97 11/26/21 02:05 <Wanda Tang MD - Last Filed: 11/26/21 16:06> Initial Vital Signs Initial Vital Signs: Vital Signs Temperature 97.9 F 11/26/21 02:05 Pulse Rate 68 11/26/21 02:05 Respiratory Rate 18 11/26/21 02:05 Blood Pressure 133/85 11/26/21 02:05 Pulse Oximetry 97 11/26/21 02:05 Course <Bogdan Tran DO - Last Filed: 11/27/21 04:37> Orders Ordered: Discontinued Medications Fentanyl (Fentanyl 100 Mcg/2 Ml Inj) 50 mcg IV NOW ONE Stop: 11/26/21 04:44 Last Admin: 11/26/21 04:51 Dose: 50 mcg Documented by: SHORTY Sodium Chloride (Normal Saline 0.9%) 1,000 mls @ 150 mls/hr IV CONT JUNIOR Last Infusion: 11/26/21 05:30 Dose: 0 mls/hr Documented by: Infusion: 11/26/21 04:25 Dose: 999 mls/hr Documented by: Admin: 11/26/21 02:25 Dose: 150 mls/hr Documented by: LETTY Sodium Chloride (Normal Saline 0.9%) 1,000 mls @ 1,000 mls/hr IV BOLUS ONE Stop: 11/26/21 05:09 Last Infusion: 11/26/21 08:46 Dose: 0 mls/hr Documented by: ИВАН Admin: 11/26/21 05:30 Dose: 1,000 mls/hr Documented by: SIMON Thiamine HCl 100 mg/ Sodium (Chloride) 101 mls @ 404 mls/hr IV NOW ONE Stop: 11/26/21 11:13 Last Infusion: 11/26/21 11:56 Dose: 0 mls/hr Documented by: Admin: 11/26/21 11:23 Dose: 404 mls/hr Documented by: MARCIA Lactulose (Lactulose 20 Gm/30 Ml Solution) 20 gm PO NOW ONE Stop: 11/26/21 04:35 Last Admin: 11/26/21 04:51 Dose: 20 gm Documented by: SHORTY Lorazepam (Lorazepam 2 Mg/Ml Inj) 2 mg IV NOW ONE Stop: 11/26/21 15:20 Last Admin: 11/26/21 15:32 Dose: 2 mg Documented by: MARCIA Ondansetron HCl (Ondansetron 4 Mg/2 Ml Inj) 4 mg IV NOW ONE Stop: 11/26/21 12:49 Last Admin: 11/26/21 12:52 Dose: 4 mg Documented by: MARCIA Consultations Consultation #1: discussed with local hospitalist, given complexity of case with acute on chronic kidney, etoh, hepatic encephalopathy he will require higher level of care Consultation #2: call to Hepatology (Dr. Mann) has reviewed the case, no specific juan mmendations from her perspective, no need for transfer to , can admit anywhere with bed to address kidneys, lactulose, etc. Vital Signs Vital signs: Vital Signs - 8 hr 11/26/21 08:16 11/26/21 08:30 11/26/21 08:46 Pulse Rate 62 63 61 Respiratory Rate 16 13 19 Blood Pressure 117/76 122/82 147/79 H Pulse Oximetry 98 98 100 11/26/21 09:00 11/26/21 09:15 11/26/21 09:30 Pulse Rate 65 64 62 Respiratory Rate 11 L 10 L 23 Blood Pressure 128/75 136/71 124/69 Pulse Oximetry 97 95 97 11/26/21 09:45 11/26/21 10:00 11/26/21 10:15 Pulse Rate 63 65 63 Respiratory Rate 12 18 14 Blood Pressure 117/65 127/69 109/62 Pulse Oximetry 96 92 91 11/26/21 10:30 11/26/21 10:45 11/26/21 11:00 Pulse Rate 64 64 64 Respiratory Rate 14 12 13 Blood Pressure 120/62 113/61 Pulse Oximetry 96 93 94 11/26/21 11:01 11/26/21 11:15 11/26/21 11:30 Pulse Rate 64 64 66 Respiratory Rate 12 12 11 L Blood Pressure 116/79 112/70 125/69 Pulse Oximetry 95 93 96 11/26/21 12:00 11/26/21 12:30 11/26/21 13:00 Pulse Rate 95 H 109 H 108 H Respiratory Rate 12 Blood Pressure 115/77 126/80 Pulse Oximetry 95 92 92 11/26/21 13:01 11/26/21 13:30 11/26/21 14:00 Pulse Rate 110 H 114 H 119 H Respiratory Rate 12 11 L 19 Blood Pressure 127/66 129/90 125/91 H Pulse Oximetry 91 96 11/26/21 14:30 11/26/21 14:37 11/26/21 15:00 Pulse Rate 124 H 120 H 122 H Respiratory Rate 11 L 10 L Blood Pressure 133/88 130/92 H Pulse Oximetry 96 93 11/26/21 15:30 11/26/21 16:00 11/26/21 16:01 Pulse Rate 117 H 68 68 Respiratory Rate 11 L 12 Blood Pressure 136/103 H 126/75 Pulse Oximetry 97 96 96 <Wanda Tang MD - Last Filed: 11/26/21 16:06> Orders Ordered: Discontinued Medications Fentanyl (Fentanyl 100 Mcg/2 Ml Inj) 50 mcg IV NOW ONE Stop: 11/26/21 04:44 Last Admin: 11/26/21 04:51 Dose: 50 mcg Documented by: SHORTY Sodium Chloride (Normal Saline 0.9%) 1,000 mls @ 150 mls/hr IV CONT JUNIOR Last Infusion: 11/26/21 05:30 Dose: 0 mls/hr Documented by: Infusion: 11/26/21 04:25 Dose: 999 mls/hr Documented by: Admin: 11/26/21 02:25 Dose: 150 mls/hr Documented by: LETTY Sodium Chloride (Normal Saline 0.9%) 1,000 mls @ 1,000 mls/hr IV BOLUS ONE Stop: 11/26/21 05:09 Last Infusion: 11/26/21 08:46 Dose: 0 mls/hr Documented by: ИВАН Admin: 11/26/21 05:30 Dose: 1,000 mls/hr Documented by: SIMON Thiamine HCl 100 mg/ Sodium (Chloride) 101 mls @ 404 mls/hr IV NOW ONE Stop: 11/26/21 11:13 Last Infusion: 11/26/21 11:56 Dose: 0 mls/hr Documented by: Admin: 11/26/21 11:23 Dose: 404 mls/hr Documented by: MARCIA Lactulose (Lactulose 20 Gm/30 Ml Solution) 20 gm PO NOW ONE Stop: 11/26/21 04:35 Last Admin: 11/26/21 04:51 Dose: 20 gm Documented by: SHORTY Lorazepam (Lorazepam 2 Mg/Ml Inj) 2 mg IV NOW ONE Stop: 11/26/21 15:20 Last Admin: 11/26/21 15:32 Dose: 2 mg Documented by: ANGELOETERSON Ondansetron HCl (Ondansetron 4 Mg/2 Ml Inj) 4 mg IV NOW ONE Stop: 11/26/21 12:49 Last Admin: 11/26/21 12:52 Dose: 4 mg Documented by: ANGELOETERSON Vital Signs Vital signs: Vital Signs - 8 hr 11/26/21 08:16 11/26/21 08:30 11/26/21 08:46 Pulse Rate 62 63 61 Respiratory Rate 16 13 19 Blood Pressure 117/76 122/82 147/79 H Pulse Oximetry 98 98 100 11/26/21 09:00 11/26/21 09:15 11/26/21 09:30 Pulse Rate 65 64 62 Respiratory Rate 11 L 10 L 23 Blood Pressure 128/75 136/71 124/69 Pulse Oximetry 97 95 97 11/26/21 09:45 11/26/21 10:00 11/26/21 10:15 Pulse Rate 63 65 63 Respiratory Rate 12 18 14 Blood Pressure 117/65 127/69 109/62 Pulse Oximetry 96 92 91 11/26/21 10:30 11/26/21 10:45 11/26/21 11:00 Pulse Rate 64 64 64 Respiratory Rate 14 12 13 Blood Pressure 120/62 113/61 Pulse Oximetry 96 93 94 11/26/21 11:01 11/26/21 11:15 11/26/21 11:30 Pulse Rate 64 64 66 Respiratory Rate 12 12 11 L Blood Pressure 116/79 112/70 125/69 Pulse Oximetry 95 93 96 11/26/21 12:00 11/26/21 12:30 11/26/21 13:00 Pulse Rate 95 H 109 H 108 H Respiratory Rate 12 Blood Pressure 115/77 126/80 Pulse Oximetry 95 92 92 11/26/21 13:01 11/26/21 13:30 11/26/21 14:00 Pulse Rate 110 H 114 H 119 H Respiratory Rate 12 11 L 19 Blood Pressure 127/66 129/90 125/91 H Pulse Oximetry 91 96 11/26/21 14:30 11/26/21 14:37 11/26/21 15:00 Pulse Rate 124 H 120 H 122 H Respiratory Rate 11 L 10 L Blood Pressure 133/88 130/92 H Pulse Oximetry 96 93 11/26/21 15:30 11/26/21 16:00 11/26/21 16:01 Pulse Rate 117 H 68 68 Respiratory Rate 11 L 12 Blood Pressure 136/103 H 126/75 Pulse Oximetry 97 96 96 MDM - Altered Mental Status <Bogdan TranDO - Last Filed: 11/27/21 04:37> Lab Data Result diagrams: 11/26/21 06:14 11/26/21 13:21 Labs: Lab Results 11/26/21 11/26/21 11/26/21 Range/Units 02:12 02:12 02:12 WBC 9.3 (4.5-11.0) X10^3/uL RBC 2.62 L (4.5-5.9) X10^6/uL Hgb 8.4 L (13.5-17.5) g/dL Hct 25.5 L (41-53) % MCV 97.1 (80-100) fL MCH 31.8 (26-34) PG MCHC 32.8 (30-36) % RDW 18.5 H (11.6-14.8) % Plt Count 102 L (150-400) X10^3/uL Neut % (Auto) 26.9 L (50-75) % Lymph % (Auto) 63.1 H (25-40) % [place] % (Auto) 8.4 (3-14) % Eos % (Auto) 1.2 L (2-4) % Baso % (Auto) 0.4 (0-2) % Neut # (Auto) 2500 (9116-9439) /uL Lymph # (Auto) 5900 H (6821-3223) /uL [place] # (Auto) 800 (0-900) /uL Eos # (Auto) 100 (0-450) /uL Baso # (Auto) 0 (0-100) /uL Total Counted Seg Neutrophils % (38-70) % Lymphocytes % (Manual) (25-45) % Atypical Lymphs % ( - 0) % Monocytes % (Manual) (2-11) % Neutrophils # (Manual) (8120-3294) /uL RBC Morphology Anisocytosis PT (10.1-12.7) SECONDS INR (0.9-1.3) Sodium (137-145) mmol/L Potassium (3.4-5.1) mmol/L Chloride (98-107) mmol/L Carbon Dioxide (22-32) mmol/L BUN (9-20) mg/dL Creatinine (0.66-1.25) mg/dL Estimated GFR (>60) mL/min BUN/Creatinine Ratio (6-22) Glucose (70-100) mg/dL Lactate (0.7-2.1) mmol/L Calcium (8.4-10.2) mg/dL Total Bilirubin (0.2-1.3) mg/dL AST (17-59) IU/L ALT (<50) IU/L Alkaline Phosphatase (38-126) U/L Ammonia (9-30) umol/L Total Creatine Kinase 76 (55-170) U/L CK-MB (CK-2) TNP CK-MB (CK-2) Rel Index TNP Troponin I < 0.012 (0.01-0.034) ng/mL Total Protein (6.3-8.2) g/dL Albumin (3.5-5.0) g/dL Globulin (1.7-4.1) g/dL Albumin/Globulin Ratio (1.0-2.8) Procalcitonin 0.18 (<0.5) ng/mL TSH (0.47-4.68) uIU/mL Prolactin (3.7-17.9) ng/mL Urine Color Urine Appearance Urine pH (4.5-8.0) Ur Specific [place] (1.000-1.035) Urine Protein (Negative) Urine Glucose (UA) (Negative) g/dL Urine Ketones (NEGATIVE) Urine Occult Blood (Negative) Urine Nitrate (Negative) Urine Bilirubin (NEGATIVE) Urine Urobilinogen (0.2) E.U./dL Ur Leukocyte Esterase (NEGATIVE) Urine RBC (0-5/HPF) Urine WBC (0-5/HPF) Ur Squamous Epith Cells (0-5/HPF) Urine Bacteria (None) Ur Culture Indicated? Salicylates (<20) mg/dL U Opiates 300ng/mL cut (Negative) Ur Oxycodone Screen (Negative) Urine Methadone Screen (Negative) Acetaminophen (10-30) ug/mL Ur Barbiturates Screen (Negative) U Tricyclic Antidepress (Negative) Ur Phencyclidine Scrn (Negative) Ur Amphetamines Screen (Negative) U Methamphetamines Scrn (Negative) Ur MDMA Scrn (Ecstasy) (Negative) U Benzodiazepines Scrn (Negative) Urine Cocaine Screen (Negative) U Marijuana (THC) Screen (Negative) Ethyl Alcohol ( - 10) mg/dL SARS-CoV-2 (PCR) (Negative) Blood Type A Positive Antibody Screen Negative 11/26/21 11/26/21 11/26/21 Range/Units 02:12 02:12 02:12 WBC (4.5-11.0) X10^3/uL RBC (4.5-5.9) X10^6/uL Hgb (13.5-17.5) g/dL Hct (41-53) % MCV (80-100) fL MCH (26-34) PG MCHC (30-36) % RDW (11.6-14.8) % Plt Count (150-400) X10^3/uL Neut % (Auto) (50-75) % Lymph % (Auto) (25-40) % [place] % (Auto) (3-14) % Eos % (Auto) (2-4) % Baso % (Auto) (0-2) % Neut # (Auto) (4943-0737) /uL Lymph # (Auto) (8684-0964) /uL [place] # (Auto) (0-900) /uL Eos # (Auto) (0-450) /uL Baso # (Auto) (0-100) /uL Total Counted Seg Neutrophils % (38-70) % Lymphocytes % (Manual) (25-45) % Atypical Lymphs % ( - 0) % Monocytes % (Manual) (2-11) % Neutrophils # (Manual) (6606-5406) /uL RBC Morphology Anisocytosis PT 11.3 (10.1-12.7) SECONDS INR 1.0 (0.9-1.3) Sodium 135 L (137-145) mmol/L Potassium 3.9 (3.4-5.1) mmol/L Chloride 102 (98-107) mmol/L Carbon Dioxide 26 (22-32) mmol/L BUN 59 H (9-20) mg/dL Creatinine 3.93 H (0.66-1.25) mg/dL Estimated GFR 17 L (>60) mL/min BUN/Creatinine Ratio 15.0 (6-22) Glucose 104 H (70-100) mg/dL Lactate 1.6 (0.7-2.1) mmol/L Calcium 8.2 L (8.4-10.2) mg/dL Total Bilirubin 1.0 (0.2-1.3) mg/dL AST 61 H (17-59) IU/L ALT 25 (<50) IU/L Alkaline Phosphatase 207 H (38-126) U/L Ammonia (9-30) umol/L Total Creatine Kinase (55-170) U/L CK-MB (CK-2) CK-MB (CK-2) Rel Index Troponin I (0.01-0.034) ng/mL Total Protein 5.8 L (6.3-8.2) g/dL Albumin 2.6 L (3.5-5.0) g/dL Globulin 3.2 (1.7-4.1) g/dL Albumin/Globulin Ratio 0.8 L (1.0-2.8) Procalcitonin (<0.5) ng/mL TSH (0.47-4.68) uIU/mL Prolactin 13.9 (3.7-17.9) ng/mL Urine Color Urine Appearance Urine pH (4.5-8.0) Ur Specific [place] (1.000-1.035) Urine Protein (Negative) Urine Glucose (UA) (Negative) g/dL Urine Ketones (NEGATIVE) Urine Occult Blood (Negative) Urine Nitrate (Negative) Urine Bilirubin (NEGATIVE) Urine Urobilinogen (0.2) E.U./dL Ur Leukocyte Esterase (NEGATIVE) Urine RBC (0-5/HPF) Urine WBC (0-5/HPF) Ur Squamous Epith Cells (0-5/HPF) Urine Bacteria (None) Ur Culture Indicated? Salicylates < 1.0 (<20) mg/dL U Opiates 300ng/mL cut (Negative) Ur Oxycodone Screen (Negative) Urine Methadone Screen (Negative) Acetaminophen < 10 (10-30) ug/mL Ur Barbiturates Screen (Negative) U Tricyclic Antidepress (Negative) Ur Phencyclidine Scrn (Negative) Ur Amphetamines Screen (Negative) U Methamphetamines Scrn (Negative) Ur MDMA Scrn (Ecstasy) (Negative) U Benzodiazepines Scrn (Negative) Urine Cocaine Screen (Negative) U Marijuana (THC) Screen (Negative) Ethyl Alcohol 254 H ( - 10) mg/dL SARS-CoV-2 (PCR) (Negative) Blood Type Antibody Screen 11/26/21 11/26/21 11/26/21 Range/Units 02:12 02:30 04:30 WBC (4.5-11.0) X10^3/uL RBC (4.5-5.9) X10^6/uL Hgb (13.5-17.5) g/dL Hct (41-53) % MCV (80-100) fL MCH (26-34) PG MCHC (30-36) % RDW (11.6-14.8) % Plt Count (150-400) X10^3/uL Neut % (Auto) (50-75) % Lymph % (Auto) (25-40) % [place] % (Auto) (3-14) % Eos % (Auto) (2-4) % Baso % (Auto) (0-2) % Neut # (Auto) (2119-0237) /uL Lymph # (Auto) (1316-4121) /uL [place] # (Auto) (0-900) /uL Eos # (Auto) (0-450) /uL Baso # (Auto) (0-100) /uL Total Counted Seg Neutrophils % (38-70) % Lymphocytes % (Manual) (25-45) % Atypical Lymphs % ( - 0) % Monocytes % (Manual) (2-11) % Neutrophils # (Manual) (3949-8723) /uL RBC Morphology Anisocytosis PT (10.1-12.7) SECONDS INR (0.9-1.3) Sodium (137-145) mmol/L Potassium (3.4-5.1) mmol/L Chloride (98-107) mmol/L Carbon Dioxide (22-32) mmol/L BUN (9-20) mg/dL Creatinine (0.66-1.25) mg/dL Estimated GFR (>60) mL/min BUN/Creatinine Ratio (6-22) Glucose (70-100) mg/dL Lactate (0.7-2.1) mmol/L Calcium (8.4-10.2) mg/dL Total Bilirubin (0.2-1.3) mg/dL AST (17-59) IU/L ALT (<50) IU/L Alkaline Phosphatase (38-126) U/L Ammonia 74 H (9-30) umol/L Total Creatine Kinase (55-170) U/L CK-MB (CK-2) CK-MB (CK-2) Rel Index Troponin I (0.01-0.034) ng/mL Total Protein (6.3-8.2) g/dL Albumin (3.5-5.0) g/dL Globulin (1.7-4.1) g/dL Albumin/Globulin Ratio (1.0-2.8) Procalcitonin (<0.5) ng/mL TSH 2.37 (0.47-4.68) uIU/mL Prolactin (3.7-17.9) ng/mL Urine Color Yellow Urine Appearance Clear Urine pH 5.5 (4.5-8.0) Ur Specific [place] <=1.005 (1.000-1.035) Urine Protein Trace H (Negative) Urine Glucose (UA) Negative (Negative) g/dL Urine Ketones Negative (NEGATIVE) Urine Occult Blood 1+ H (Negative) Urine Nitrate Negative (Negative) Urine Bilirubin Negative (NEGATIVE) Urine Urobilinogen 0.2 (0.2) E.U./dL Ur Leukocyte Esterase Negative (NEGATIVE) Urine RBC 1-5/hpf D (0-5/HPF) Urine WBC None seen (0-5/HPF) Ur Squamous Epith Cells None seen (0-5/HPF) Urine Bacteria None seen (None) Ur Culture Indicated? Cult not indicated Salicylates (<20) mg/dL U Opiates 300ng/mL cut (Negative) Ur Oxycodone Screen (Negative) Urine Methadone Screen (Negative) Acetaminophen (10-30) ug/mL Ur Barbiturates Screen (Negative) U Tricyclic Antidepress (Negative) Ur Phencyclidine Scrn (Negative) Ur Amphetamines Screen (Negative) U Methamphetamines Scrn (Negative) Ur MDMA Scrn (Ecstasy) (Negative) U Benzodiazepines Scrn (Negative) Urine Cocaine Screen (Negative) U Marijuana (THC) Screen (Negative) Ethyl Alcohol ( - 10) mg/dL SARS-CoV-2 (PCR) (Negative) Blood Type Antibody Screen 11/26/21 11/26/21 11/26/21 Range/Units 04:30 05:02 06:14 WBC 7.8 (4.5-11.0) X10^3/uL RBC 2.53 L (4.5-5.9) X10^6/uL Hgb 8.0 L (13.5-17.5) g/dL Hct 24.7 L (41-53) % MCV 97.6 (80-100) fL MCH 31.5 (26-34) PG MCHC 32.2 (30-36) % RDW 19.4 H (11.6-14.8) % Plt Count 104 L (150-400) X10^3/uL Neut % (Auto) Not Reportable (50-75) % Lymph % (Auto) Not Reportable (25-40) % [place] % (Auto) Not Reportable (3-14) % Eos % (Auto) Not Reportable (2-4) % Baso % (Auto) Not Reportable (0-2) % Neut # (Auto) (6323-7227) /uL Lymph # (Auto) Not Reportable (5786-5263) /uL [place] # (Auto) Not Reportable (0-900) /uL Eos # (Auto) (0-450) /uL Baso # (Auto) Not Reportable (0-100) /uL Total Counted 100 Seg Neutrophils % 33.0 L (38-70) % Lymphocytes % (Manual) 60.0 H (25-45) % Atypical Lymphs % 3.0 H ( - 0) % Monocytes % (Manual) 4.0 (2-11) % Neutrophils # (Manual) 2574 L (8559-0689) /uL RBC Morphology See below Anisocytosis 2+ H PT (10.1-12.7) SECONDS INR (0.9-1.3) Sodium (137-145) mmol/L Potassium (3.4-5.1) mmol/L Chloride (98-107) mmol/L Carbon Dioxide (22-32) mmol/L BUN (9-20) mg/dL Creatinine (0.66-1.25) mg/dL Estimated GFR (>60) mL/min BUN/Creatinine Ratio (6-22) Glucose (70-100) mg/dL Lactate (0.7-2.1) mmol/L Calcium (8.4-10.2) mg/dL Total Bilirubin (0.2-1.3) mg/dL AST (17-59) IU/L ALT (<50) IU/L Alkaline Phosphatase (38-126) U/L Ammonia (9-30) umol/L Total Creatine Kinase (55-170) U/L CK-MB (CK-2) CK-MB (CK-2) Rel Index Troponin I (0.01-0.034) ng/mL Total Protein (6.3-8.2) g/dL Albumin (3.5-5.0) g/dL Globulin (1.7-4.1) g/dL Albumin/Globulin Ratio (1.0-2.8) Procalcitonin (<0.5) ng/mL TSH (0.47-4.68) uIU/mL Prolactin (3.7-17.9) ng/mL Urine Color Urine Appearance Urine pH (4.5-8.0) Ur Specific [place] (1.000-1.035) Urine Protein (Negative) Urine Glucose (UA) (Negative) g/dL Urine Ketones (NEGATIVE) Urine Occult Blood (Negative) Urine Nitrate (Negative) Urine Bilirubin (NEGATIVE) Urine Urobilinogen (0.2) E.U./dL Ur Leukocyte Esterase (NEGATIVE) Urine RBC (0-5/HPF) Urine WBC (0-5/HPF) Ur Squamous Epith Cells (0-5/HPF) Urine Bacteria (None) Ur Culture Indicated? Salicylates (<20) mg/dL U Opiates 300ng/mL cut Negative (Negative) Ur Oxycodone Screen Negative (Negative) Urine Methadone Screen Negative (Negative) Acetaminophen (10-30) ug/mL Ur Barbiturates Screen Negative (Negative) U Tricyclic Antidepress Negative (Negative) Ur Phencyclidine Scrn Negative (Negative) Ur Amphetamines Screen Negative (Negative) U Methamphetamines Scrn Negative (Negative) Ur MDMA Scrn (Ecstasy) Negative (Negative) U Benzodiazepines Scrn Negative (Negative) Urine Cocaine Screen Negative (Negative) U Marijuana (THC) Screen Positive H (Negative) Ethyl Alcohol ( - 10) mg/dL SARS-CoV-2 (PCR) Negative (Negative) Blood Type Antibody Screen 11/26/21 11/26/21 11/26/21 Range/Units 06:14 13:21 13:21 WBC (4.5-11.0) X10^3/uL RBC (4.5-5.9) X10^6/uL Hgb (13.5-17.5) g/dL Hct (41-53) % MCV (80-100) fL MCH (26-34) PG MCHC (30-36) % RDW (11.6-14.8) % Plt Count (150-400) X10^3/uL Neut % (Auto) (50-75) % Lymph % (Auto) (25-40) % [place] % (Auto) (3-14) % Eos % (Auto) (2-4) % Baso % (Auto) (0-2) % Neut # (Auto) (9753-3175) /uL Lymph # (Auto) (6552-5523) /uL [place] # (Auto) (0-900) /uL Eos # (Auto) (0-450) /uL Baso # (Auto) (0-100) /uL Total Counted Seg Neutrophils % (38-70) % Lymphocytes % (Manual) (25-45) % Atypical Lymphs % ( - 0) % Monocytes % (Manual) (2-11) % Neutrophils # (Manual) (2890-8186) /uL RBC Morphology Anisocytosis PT (10.1-12.7) SECONDS INR (0.9-1.3) Sodium 137 137 (137-145) mmol/L Potassium 3.7 3.7 (3.4-5.1) mmol/L Chloride 104 106 (98-107) mmol/L Carbon Dioxide 26 25 (22-32) mmol/L BUN 54 H 52 H (9-20) mg/dL Creatinine 3.74 H 3.74 H (0.66-1.25) mg/dL Estimated GFR 18 L 18 L (>60) mL/min BUN/Creatinine Ratio 14.4 13.9 (6-22) Glucose 114 H 98 (70-100) mg/dL Lactate (0.7-2.1) mmol/L Calcium 8.0 L 8.2 L (8.4-10.2) mg/dL Total Bilirubin 1.0 (0.2-1.3) mg/dL AST 53 (17-59) IU/L ALT 25 (<50) IU/L Alkaline Phosphatase 205 H (38-126) U/L Ammonia 143 H (9-30) umol/L Total Creatine Kinase (55-170) U/L CK-MB (CK-2) CK-MB (CK-2) Rel Index Troponin I (0.01-0.034) ng/mL Total Protein 5.5 L (6.3-8.2) g/dL Albumin 2.4 L (3.5-5.0) g/dL Globulin 3.1 (1.7-4.1) g/dL Albumin/Globulin Ratio 0.8 L (1.0-2.8) Procalcitonin (<0.5) ng/mL TSH (0.47-4.68) uIU/mL Prolactin (3.7-17.9) ng/mL Urine Color Urine Appearance Urine pH (4.5-8.0) Ur Specific [place] (1.000-1.035) Urine Protein (Negative) Urine Glucose (UA) (Negative) g/dL Urine Ketones (NEGATIVE) Urine Occult Blood (Negative) Urine Nitrate (Negative) Urine Bilirubin (NEGATIVE) Urine Urobilinogen (0.2) E.U./dL Ur Leukocyte Esterase (NEGATIVE) Urine RBC (0-5/HPF) Urine WBC (0-5/HPF) Ur Squamous Epith Cells (0-5/HPF) Urine Bacteria (None) Ur Culture Indicated? Salicylates (<20) mg/dL U Opiates 300ng/mL cut (Negative) Ur Oxycodone Screen (Negative) Urine Methadone Screen (Negative) Acetaminophen (10-30) ug/mL Ur Barbiturates Screen (Negative) U Tricyclic Antidepress (Negative) Ur Phencyclidine Scrn (Negative) Ur Amphetamines Screen (Negative) U Methamphetamines Scrn (Negative) Ur MDMA Scrn (Ecstasy) (Negative) U Benzodiazepines Scrn (Negative) Urine Cocaine Screen (Negative) U Marijuana (THC) Screen (Negative) Ethyl Alcohol ( - 10) mg/dL SARS-CoV-2 (PCR) (Negative) Blood Type Antibody Screen Imaging Data CT scan - head: Radiologist's Impression: NAP CT Lumbar: Radiologist's Impression: No acute fracture Chest x-ray: Radiologist's Impression: Heart at upper limits of normal without failure <Wanda Tang MD - Last Filed: 11/26/21 16:06> Lab Data Labs: Lab Results 11/26/21 11/26/21 11/26/21 Range/Units 02:12 02:12 02:12 WBC 9.3 (4.5-11.0) X10^3/uL RBC 2.62 L (4.5-5.9) X10^6/uL Hgb 8.4 L (13.5-17.5) g/dL Hct 25.5 L (41-53) % MCV 97.1 (80-100) fL MCH 31.8 (26-34) PG MCHC 32.8 (30-36) % RDW 18.5 H (11.6-14.8) % Plt Count 102 L (150-400) X10^3/uL Neut % (Auto) 26.9 L (50-75) % Lymph % (Auto) 63.1 H (25-40) % [place] % (Auto) 8.4 (3-14) % Eos % (Auto) 1.2 L (2-4) % Baso % (Auto) 0.4 (0-2) % Neut # (Auto) 2500 (4481-0286) /uL Lymph # (Auto) 5900 H (1528-9467) /uL [place] # (Auto) 800 (0-900) /uL Eos # (Auto) 100 (0-450) /uL Baso # (Auto) 0 (0-100) /uL Total Counted Seg Neutrophils % (38-70) % Lymphocytes % (Manual) (25-45) % Atypical Lymphs % ( - 0) % Monocytes % (Manual) (2-11) % Neutrophils # (Manual) (0978-6848) /uL RBC Morphology Anisocytosis PT (10.1-12.7) SECONDS INR (0.9-1.3) Sodium (137-145) mmol/L Potassium (3.4-5.1) mmol/L Chloride (98-107) mmol/L Carbon Dioxide (22-32) mmol/L BUN (9-20) mg/dL Creatinine (0.66-1.25) mg/dL Estimated GFR (>60) mL/min BUN/Creatinine Ratio (6-22) Glucose (70-100) mg/dL Lactate (0.7-2.1) mmol/L Calcium (8.4-10.2) mg/dL Total Bilirubin (0.2-1.3) mg/dL AST (17-59) IU/L ALT (<50) IU/L Alkaline Phosphatase (38-126) U/L Ammonia (9-30) umol/L Total Creatine Kinase 76 (55-170) U/L CK-MB (CK-2) TNP CK-MB (CK-2) Rel Index TNP Troponin I < 0.012 (0.01-0.034) ng/mL Total Protein (6.3-8.2) g/dL Albumin (3.5-5.0) g/dL Globulin (1.7-4.1) g/dL Albumin/Globulin Ratio (1.0-2.8) Procalcitonin 0.18 (<0.5) ng/mL TSH (0.47-4.68) uIU/mL Prolactin (3.7-17.9) ng/mL Urine Color Urine Appearance Urine pH (4.5-8.0) Ur Specific [place] (1.000-1.035) Urine Protein (Negative) Urine Glucose (UA) (Negative) g/dL Urine Ketones (NEGATIVE) Urine Occult Blood (Negative) Urine Nitrate (Negative) Urine Bilirubin (NEGATIVE) Urine Urobilinogen (0.2) E.U./dL Ur Leukocyte Esterase (NEGATIVE) Urine RBC (0-5/HPF) Urine WBC (0-5/HPF) Ur Squamous Epith Cells (0-5/HPF) Urine Bacteria (None) Ur Culture Indicated? Salicylates (<20) mg/dL U Opiates 300ng/mL cut (Negative) Ur Oxycodone Screen (Negative) Urine Methadone Screen (Negative) Acetaminophen (10-30) ug/mL Ur Barbiturates Screen (Negative) U Tricyclic Antidepress (Negative) Ur Phencyclidine Scrn (Negative) Ur Amphetamines Screen (Negative) U Methamphetamines Scrn (Negative) Ur MDMA Scrn (Ecstasy) (Negative) U Benzodiazepines Scrn (Negative) Urine Cocaine Screen (Negative) U Marijuana (THC) Screen (Negative) Ethyl Alcohol ( - 10) mg/dL SARS-CoV-2 (PCR) (Negative) Blood Type A Positive Antibody Screen Negative 04/16/22 04/16/22 04/16/22 Range/Units 02:12 02:12 02:12 WBC (4.5-11.0) X10^3/uL RBC (4.5-5.9) X10^6/uL Hgb (13.5-17.5) g/dL Hct (41-53) % MCV (80-100) fL MCH (26-34) PG MCHC (30-36) % RDW (11.6-14.8) % Plt Count (150-400) X10^3/uL Neut % (Auto) (50-75) % Lymph % (Auto) (25-40) % [place] % (Auto) (3-14) % Eos % (Auto) (2-4) % Baso % (Auto) (0-2) % Neut # (Auto) (7268-5640) /uL Lymph # (Auto) (3882-6641) /uL [place] # (Auto) (0-900) /uL Eos # (Auto) (0-450) /uL Baso # (Auto) (0-100) /uL Total Counted Seg Neutrophils % (38-70) % Lymphocytes % (Manual) (25-45) % Atypical Lymphs % ( - 0) % Monocytes % (Manual) (2-11) % Neutrophils # (Manual) (1992-5450) /uL RBC Morphology Anisocytosis PT 11.3 (10.1-12.7) SECONDS INR 1.0 (0.9-1.3) Sodium 135 L (137-145) mmol/L Potassium 3.9 (3.4-5.1) mmol/L Chloride 102 (98-107) mmol/L Carbon Dioxide 26 (22-32) mmol/L BUN 59 H (9-20) mg/dL Creatinine 3.93 H (0.66-1.25) mg/dL Estimated GFR 17 L (>60) mL/min BUN/Creatinine Ratio 15.0 (6-22) Glucose 104 H (70-100) mg/dL Lactate 1.6 (0.7-2.1) mmol/L Calcium 8.2 L (8.4-10.2) mg/dL Total Bilirubin 1.0 (0.2-1.3) mg/dL AST 61 H (17-59) IU/L ALT 25 (<50) IU/L Alkaline Phosphatase 207 H (38-126) U/L Ammonia (9-30) umol/L Total Creatine Kinase (55-170) U/L CK-MB (CK-2) CK-MB (CK-2) Rel Index Troponin I (0.01-0.034) ng/mL Total Protein 5.8 L (6.3-8.2) g/dL Albumin 2.6 L (3.5-5.0) g/dL Globulin 3.2 (1.7-4.1) g/dL Albumin/Globulin Ratio 0.8 L (1.0-2.8) Procalcitonin (<0.5) ng/mL TSH (0.47-4.68) uIU/mL Prolactin 13.9 (3.7-17.9) ng/mL Urine Color Urine Appearance Urine pH (4.5-8.0) Ur Specific [place] (1.000-1.035) Urine Protein (Negative) Urine Glucose (UA) (Negative) g/dL Urine Ketones (NEGATIVE) Urine Occult Blood (Negative) Urine Nitrate (Negative) Urine Bilirubin (NEGATIVE) Urine Urobilinogen (0.2) E.U./dL Ur Leukocyte Esterase (NEGATIVE) Urine RBC (0-5/HPF) Urine WBC (0-5/HPF) Ur Squamous Epith Cells (0-5/HPF) Urine Bacteria (None) Ur Culture Indicated? Salicylates < 1.0 (<20) mg/dL U Opiates 300ng/mL cut (Negative) Ur Oxycodone Screen (Negative) Urine Methadone Screen (Negative) Acetaminophen < 10 (10-30) ug/mL Ur Barbiturates Screen (Negative) U Tricyclic Antidepress (Negative) Ur Phencyclidine Scrn (Negative) Ur Amphetamines Screen (Negative) U Methamphetamines Scrn (Negative) Ur MDMA Scrn (Ecstasy) (Negative) U Benzodiazepines Scrn (Negative) Urine Cocaine Screen (Negative) U Marijuana (THC) Screen (Negative) Ethyl Alcohol 254 H ( - 10) mg/dL SARS-CoV-2 (PCR) (Negative) Blood Type Antibody Screen 11/26/21 11/26/21 11/26/21 Range/Units 02:12 02:30 04:30 WBC (4.5-11.0) X10^3/uL RBC (4.5-5.9) X10^6/uL Hgb (13.5-17.5) g/dL Hct (41-53) % MCV (80-100) fL MCH (26-34) PG MCHC (30-36) % RDW (11.6-14.8) % Plt Count (150-400) X10^3/uL Neut % (Auto) (50-75) % Lymph % (Auto) (25-40) % [place] % (Auto) (3-14) % Eos % (Auto) (2-4) % Baso % (Auto) (0-2) % Neut # (Auto) (2016-9509) /uL Lymph # (Auto) (7106-4499) /uL [place] # (Auto) (0-900) /uL Eos # (Auto) (0-450) /uL Baso # (Auto) (0-100) /uL Total Counted Seg Neutrophils % (38-70) % Lymphocytes % (Manual) (25-45) % Atypical Lymphs % ( - 0) % Monocytes % (Manual) (2-11) % Neutrophils # (Manual) (4955-7513) /uL RBC Morphology Anisocytosis PT (10.1-12.7) SECONDS INR (0.9-1.3) Sodium (137-145) mmol/L Potassium (3.4-5.1) mmol/L Chloride (98-107) mmol/L Carbon Dioxide (22-32) mmol/L BUN (9-20) mg/dL Creatinine (0.66-1.25) mg/dL Estimated GFR (>60) mL/min BUN/Creatinine Ratio (6-22) Glucose (70-100) mg/dL Lactate (0.7-2.1) mmol/L Calcium (8.4-10.2) mg/dL Total Bilirubin (0.2-1.3) mg/dL AST (17-59) IU/L ALT (<50) IU/L Alkaline Phosphatase (38-126) U/L Ammonia 74 H (9-30) umol/L Total Creatine Kinase (55-170) U/L CK-MB (CK-2) CK-MB (CK-2) Rel Index Troponin I (0.01-0.034) ng/mL Total Protein (6.3-8.2) g/dL Albumin (3.5-5.0) g/dL Globulin (1.7-4.1) g/dL Albumin/Globulin Ratio (1.0-2.8) Procalcitonin (<0.5) ng/mL TSH 2.37 (0.47-4.68) uIU/mL Prolactin (3.7-17.9) ng/mL Urine Color Yellow Urine Appearance Clear Urine pH 5.5 (4.5-8.0) Ur Specific [place] <=1.005 (1.000-1.035) Urine Protein Trace H (Negative) Urine Glucose (UA) Negative (Negative) g/dL Urine Ketones Negative (NEGATIVE) Urine Occult Blood 1+ H (Negative) Urine Nitrate Negative (Negative) Urine Bilirubin Negative (NEGATIVE) Urine Urobilinogen 0.2 (0.2) E.U./dL Ur Leukocyte Esterase Negative (NEGATIVE) Urine RBC 1-5/hpf D (0-5/HPF) Urine WBC None seen (0-5/HPF) Ur Squamous Epith Cells None seen (0-5/HPF) Urine Bacteria None seen (None) Ur Culture Indicated? Cult not indicated Salicylates (<20) mg/dL U Opiates 300ng/mL cut (Negative) Ur Oxycodone Screen (Negative) Urine Methadone Screen (Negative) Acetaminophen (10-30) ug/mL Ur Barbiturates Screen (Negative) U Tricyclic Antidepress (Negative) Ur Phencyclidine Scrn (Negative) Ur Amphetamines Screen (Negative) U Methamphetamines Scrn (Negative) Ur MDMA Scrn (Ecstasy) (Negative) U Benzodiazepines Scrn (Negative) Urine Cocaine Screen (Negative) U Marijuana (THC) Screen (Negative) Ethyl Alcohol ( - 10) mg/dL SARS-CoV-2 (PCR) (Negative) Blood Type Antibody Screen 11/26/21 11/26/21 11/26/21 Range/Units 04:30 05:02 06:14 WBC 7.8 (4.5-11.0) X10^3/uL RBC 2.53 L (4.5-5.9) X10^6/uL Hgb 8.0 L (13.5-17.5) g/dL Hct 24.7 L (41-53) % MCV 97.6 (80-100) fL MCH 31.5 (26-34) PG MCHC 32.2 (30-36) % RDW 19.4 H (11.6-14.8) % Plt Count 104 L (150-400) X10^3/uL Neut % (Auto) Not Reportable (50-75) % Lymph % (Auto) Not Reportable (25-40) % [place] % (Auto) Not Reportable (3-14) % Eos % (Auto) Not Reportable (2-4) % Baso % (Auto) Not Reportable (0-2) % Neut # (Auto) (1373-2732) /uL Lymph # (Auto) Not Reportable (9686-6133) /uL [place] # (Auto) Not Reportable (0-900) /uL Eos # (Auto) (0-450) /uL Baso # (Auto) Not Reportable (0-100) /uL Total Counted 100 Seg Neutrophils % 33.0 L (38-70) % Lymphocytes % (Manual) 60.0 H (25-45) % Atypical Lymphs % 3.0 H ( - 0) % Monocytes % (Manual) 4.0 (2-11) % Neutrophils # (Manual) 2574 L (2178-9981) /uL RBC Morphology See below Anisocytosis 2+ H PT (10.1-12.7) SECONDS INR (0.9-1.3) Sodium (137-145) mmol/L Potassium (3.4-5.1) mmol/L Chloride (98-107) mmol/L Carbon Dioxide (22-32) mmol/L BUN (9-20) mg/dL Creatinine (0.66-1.25) mg/dL Estimated GFR (>60) mL/min BUN/Creatinine Ratio (6-22) Glucose (70-100) mg/dL Lactate (0.7-2.1) mmol/L Calcium (8.4-10.2) mg/dL Total Bilirubin (0.2-1.3) mg/dL AST (17-59) IU/L ALT (<50) IU/L Alkaline Phosphatase (38-126) U/L Ammonia (9-30) umol/L Total Creatine Kinase (55-170) U/L CK-MB (CK-2) CK-MB (CK-2) Rel Index Troponin I (0.01-0.034) ng/mL Total Protein (6.3-8.2) g/dL Albumin (3.5-5.0) g/dL Globulin (1.7-4.1) g/dL Albumin/Globulin Ratio (1.0-2.8) Procalcitonin (<0.5) ng/mL TSH (0.47-4.68) uIU/mL Prolactin (3.7-17.9) ng/mL Urine Color Urine Appearance Urine pH (4.5-8.0) Ur Specific [place] (1.000-1.035) Urine Protein (Negative) Urine Glucose (UA) (Negative) g/dL Urine Ketones (NEGATIVE) Urine Occult Blood (Negative) Urine Nitrate (Negative) Urine Bilirubin (NEGATIVE) Urine Urobilinogen (0.2) E.U./dL Ur Leukocyte Esterase (NEGATIVE) Urine RBC (0-5/HPF) Urine WBC (0-5/HPF) Ur Squamous Epith Cells (0-5/HPF) Urine Bacteria (None) Ur Culture Indicated? Salicylates (<20) mg/dL U Opiates 300ng/mL cut Negative (Negative) Ur Oxycodone Screen Negative (Negative) Urine Methadone Screen Negative (Negative) Acetaminophen (10-30) ug/mL Ur Barbiturates Screen Negative (Negative) U Tricyclic Antidepress Negative (Negative) Ur Phencyclidine Scrn Negative (Negative) Ur Amphetamines Screen Negative (Negative) U Methamphetamines Scrn Negative (Negative) Ur MDMA Scrn (Ecstasy) Negative (Negative) U Benzodiazepines Scrn Negative (Negative) Urine Cocaine Screen Negative (Negative) U Marijuana (THC) Screen Positive H (Negative) Ethyl Alcohol ( - 10) mg/dL SARS-CoV-2 (PCR) Negative (Negative) Blood Type Antibody Screen 11/26/21 11/26/21 11/26/21 Range/Units 06:14 13:21 13:21 WBC (4.5-11.0) X10^3/uL RBC (4.5-5.9) X10^6/uL Hgb (13.5-17.5) g/dL Hct (41-53) % MCV (80-100) fL MCH (26-34) PG MCHC (30-36) % RDW (11.6-14.8) % Plt Count (150-400) X10^3/uL Neut % (Auto) (50-75) % Lymph % (Auto) (25-40) % [place] % (Auto) (3-14) % Eos % (Auto) (2-4) % Baso % (Auto) (0-2) % Neut # (Auto) (8392-5211) /uL Lymph # (Auto) (4440-0719) /uL [place] # (Auto) (0-900) /uL Eos # (Auto) (0-450) /uL Baso # (Auto) (0-100) /uL Total Counted Seg Neutrophils % (38-70) % Lymphocytes % (Manual) (25-45) % Atypical Lymphs % ( - 0) % Monocytes % (Manual) (2-11) % Neutrophils # (Manual) (9229-7602) /uL RBC Morphology Anisocytosis PT (10.1-12.7) SECONDS INR (0.9-1.3) Sodium 137 137 (137-145) mmol/L Potassium 3.7 3.7 (3.4-5.1) mmol/L Chloride 104 106 (98-107) mmol/L Carbon Dioxide 26 25 (22-32) mmol/L BUN 54 H 52 H (9-20) mg/dL Creatinine 3.74 H 3.74 H (0.66-1.25) mg/dL Estimated GFR 18 L 18 L (>60) mL/min BUN/Creatinine Ratio 14.4 13.9 (6-22) Glucose 114 H 98 (70-100) mg/dL Lactate (0.7-2.1) mmol/L Calcium 8.0 L 8.2 L (8.4-10.2) mg/dL Total Bilirubin 1.0 (0.2-1.3) mg/dL AST 53 (17-59) IU/L ALT 25 (<50) IU/L Alkaline Phosphatase 205 H (38-126) U/L Ammonia 143 H (9-30) umol/L Total Creatine Kinase (55-170) U/L CK-MB (CK-2) CK-MB (CK-2) Rel Index Troponin I (0.01-0.034) ng/mL Total Protein 5.5 L (6.3-8.2) g/dL Albumin 2.4 L (3.5-5.0) g/dL Globulin 3.1 (1.7-4.1) g/dL Albumin/Globulin Ratio 0.8 L (1.0-2.8) Procalcitonin (<0.5) ng/mL TSH (0.47-4.68) uIU/mL Prolactin (3.7-17.9) ng/mL Urine Color Urine Appearance Urine pH (4.5-8.0) Ur Specific [place] (1.000-1.035) Urine Protein (Negative) Urine Glucose (UA) (Negative) g/dL Urine Ketones (NEGATIVE) Urine Occult Blood (Negative) Urine Nitrate (Negative) Urine Bilirubin (NEGATIVE) Urine Urobilinogen (0.2) E.U./dL Ur Leukocyte Esterase (NEGATIVE) Urine RBC (0-5/HPF) Urine WBC (0-5/HPF) Ur Squamous Epith Cells (0-5/HPF) Urine Bacteria (None) Ur Culture Indicated? Salicylates (<20) mg/dL U Opiates 300ng/mL cut (Negative) Ur Oxycodone Screen (Negative) Urine Methadone Screen (Negative) Acetaminophen (10-30) ug/mL Ur Barbiturates Screen (Negative) U Tricyclic Antidepress (Negative) Ur Phencyclidine Scrn (Negative) Ur Amphetamines Screen (Negative) U Methamphetamines Scrn (Negative) Ur MDMA Scrn (Ecstasy) (Negative) U Benzodiazepines Scrn (Negative) Urine Cocaine Screen (Negative) U Marijuana (THC) Screen (Negative) Ethyl Alcohol ( - 10) mg/dL SARS-CoV-2 (PCR) (Negative) Blood Type Antibody Screen Imaging Data CT scan - head: Radiologist's Impression: FINDINGS:? Image quality:? Excellent.? ? CSF spaces:? Basal cisterns are patent.? No extra-axial fluid collections.? Ventricles are normal in size and shape.? ? Brain:? No midline shift.? No intracranial masses or hemorrhage.? Sibley-white matter interface is normal.? ? Skull and face:? Calvarium and visualized facial bones are intact, without suspicious lesions.? ? Sinuses:? No abnormal fluid is seen within the mastoid air cells. ? ? IMPRESSION:? ? No acute intracranial process is seen.? ? No acute intracranial hemorrhage is seen.? ? Stable from priors. ? ? Note: No significant discrepancy from the preliminary report. ? ? Dictated by: Mitchell Hernandez M.D. on 11/26/2021 at 8:04? ?? CT Lumbar: Radiologist's Impression: FINDINGS:? Image quality:? Excellent.? ? Bones:? Multiple levels lumbar spine compression deformity can be seen, which are unchanged compared to the 09/20/2020 examination. ? The disc heights are relatively well preserved, involving T12 through L5.? Multiple levels of lumbar spine degenerative change are seen, which are worst inferiorly, with several levels moderate to severe neural foraminal narrowing.? Facet arthropathy is seen throughout, which is worst inferiorly. ? No suspicious lytic or blastic bony lesions.? No pars defects.? ? Soft tissues:? No retroperitoneal masses or hematomas.? Visualized aorta is normal in caliber.? Right upper quadrant postoperative clips are seen.? The kidneys appear mildly atrophic. ? ? IMPRESSION:? No acute fracture is identified. ? Multiple levels of stable compression deformity can be seen. ? Degenerative changes are seen throughout, which are worst inferiorly and are similar to the prior CT examination. ? ? ? Note: No significant discrepancy from the preliminary report. ? Dictated by: Mitchell Hernandez M.D. on 11/26/2021 at 8:06? ?? Chest x-ray: Radiologist's Impression: FINDINGS:? ? Surgical changes and devices:? Epigastric clips are seen.? Left shoulder postoperative hardware is partially seen. ? Lungs and pleura:? On this supine examination, no large pneumothorax or large pleural effusions are seen. No focal areas of lung consolidation are seen. ? Mediastinum:? Mediastinal contours appear normal.? Heart size is mildly enlarged.? ? Bones and chest wall:? No suspicious bony lesions.? Age-appropriate bony de generative changes are seen.? ? Overlying soft tissues appear unremarkable. ? ? ? IMPRESSION:? No displaced rib fracture or pneumothorax can be seen to the limits of this single-view supine study. ? Mild cardiomegaly.? ? Postoperative and degenerative changes are seen.? ? ? Note: No significant discrepancy from the preliminary report. ? Dictated by: Mitchell Hernandez M.D. on 11/26/2021 at 8:02? ?? ECG Data Interpretation: 15:25 Atrial fibrillation at a rate of 107 No acute ischemic changes MDM Narrative Medical decision making narrative: 55-year-old gentleman with alcohol use disorder and a recent return to use will need help with alcohol withdrawal symptoms. 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 Presents with worsening hepatic encephalopathy and worsening acute renal injury with baseline creatinine in the 2.3 range up to 3.9 initially down the 3.7 with mild fluid resuscitation. Care was reviewed with the transplant team at the [facility] and they did not feel that he needed to be transferred to the [facility] nor did he need any acute hepatology consultation. He has a history of chronic anemia however this is slightly worse. In June of 2021 hemoglobin was 12.9. On initial lab work today was 8.4 and with fluid resuscitation is decreased to 8.0. There is no evidence of active bleeding at this time. Needs hospitalization for progressive renal failure in the setting of hepatic transplant patient, hepatic encephalopathy as well as management of alcohol withdrawal symptoms. Will need a floor bed in a hospital with access to Nephro logy and possible GI consultation. [facility] is not able to offer that level of care and we are working on transfer. Patient was given lactulose and is having a moderate amount of loose stool at this time. 330pm spoke with Dr. Valentin, hospitalist at [facility]. Patient has been accepted in transfer to the PCU for acute hepatic encephalopathy, management of alcohol withdrawal syndrome, acute renal injury and now new onset atrial fibrillation with rapid ventricular response. Atrial fibrillation was noted at around 3:00 p.m.. Patient was independently examined. No significant asterixis, he is pale. While we are talking he converts back to sinus rhythm at a rate of 75. Explained the anticipated transfer to [facility] in [place] to patient, questions are answered. Critical Care Time <Bogdan Tran, DO - Last Filed: 11/27/21 04:37> Critical Care Time Critical Care Time: Yes Total Critical Care Time: 60 Attestation: The high probability of a clinically significant, sudden or life threatening deterioration of the [CV/GI/] system(s) required my full and direct attention, intervention and personal management. The aggregate critical care time was 60 minutes. This time is in addition to time spent performing reported procedures but includes the following: [x] Data Review and interpretation [x] Patient assessment and monitoring of vital signs [x] Documentation [x] Medication orders and management Discharge Plan Departure Patient Disposition: [facility] Clinical Impression: Acute kidney injury, Acute hepatic encephalopathy, Anemia, Paroxysmal A-fib Alcohol withdrawal Qualifiers: Complication of substance-induced condition: uncomplicated Qualified Code(s): F10.230 - Alcohol dependence with withdrawal, uncomplicated Prescriptions: No Action furosemide 20 mg tablet 20 mg PO DAILY 0RF tamsulosin 0.4 mg Capsule 0.4 mg PO BEDTIME 0RF aspirin 81 mg Tablet,Delayed Release (Dr/Ec) 81 mg PO BID Qty: 90 0RF oxycodone 10 mg Tablet 10 mg PO Q3HR PRN (Reason: Pain, Severe (7-10)) Qty: 60 0RF lactulose 20 gram/30 mL Solution 30 gm PO TID Qty: 53332 0RF sucralfate 1 gram Tablet 1 gm PO ACHS Qty: 240 0RF famotidine [Pepcid AC] 20 mg Tablet 20 mg PO BEDTIME Qty: 120 0RF diphenhydramine HCl [Benadryl Allergy] 12.5 mg/5 mL liquid 25 mg PO Q4-6H PRN (Reason: nausea and vomiting) Qty: 200 0RF nifedipine 30 mg Tablet Extended Release 24hr 30 mg PO DAILY Qty: 60 0RF losartan 25 mg Tablet 25 mg PO DAILY Qty: 60 0RF quetiapine [Seroquel] 25 mg Tablet 25 mg PO BEDTIME 0RF cyclosporine modified 25 mg Capsule 25 mg PO BID 0RF allopurinol 100 mg Tablet 100 mg PO DAILY 0RF mycophenolate mofetil [CellCept] 500 mg Tablet 500 mg PO BID 0RF lidocaine [Lidoderm] 5 % Adhesive Patch,Medicated 1 patch TOPICAL DAILY 0RF ursodiol 300 mg Capsule 300 mg PO BID 0RF gabapentin 300 mg Capsule 300 mg PO BID 0RF Kellie-Ramila 0.8 mg Tablet 1 tab PO DAILY 0RF pyridoxine (vitamin B6) 100 mg Tablet 100 mg PO DAILY 0RF fentanyl [Duragesic] 25 mcg/hr Patch 72 Hour 25 mcg topical Q72H 0RF hydroxyzine pamoate [Vistaril] 25 mg Capsule 25 mg PO BEDTIME PRN (Reason: Itching) 0RF duloxetine [Cymbalta] 20 mg Capsule,Delayed Release(Dr/Ec) 20 mg PO DAILY 0RF ondansetron 4 mg tablet,disintegrating 4 mg PO TID-QID PRN (Reason: nausea and vomiting) Qty: 10 0RF pantoprazole [Protonix] 40 mg tablet,delayed release (DR/EC) 40 mg PO DAILY Qty: 30 0RF Xifaxan 550 mg Tablet 550 mg PO BID 0RF hydromorphone 4 mg tablet 4 mg PO Q6H PRN (Reason: pain) Qty: 30 0RF Narcan 4 mg/actuation [place],Non-Aerosol 1 spray INTRANASAL PER PKG DIR 30 Days Qty: 1 0RF Label Comments: patient has never used before Rx Instructions: 1 spray q2 minutes for opiate overdose metoprolol succinate 25 mg tablet extended release 24 hr 25 mg PO DAILY 0RF Referrals: Kevin Porter MD [Primary Care Provider] -
[2021-11-26] MEDS: SODIUM CHLORIDE 0.9% 1,000 ML 150 ML IV (02:25)
[2021-11-26 02:31] LABS: Prothrombin Time 11.3 SECONDS (10.1-12.7)
[2021-11-26 02:36] LABS: Creatine Kinase 76 U/L (55-170); Lactate (Lactic Acid) 1.6 mmol/L (0.7-2.1)
[2021-11-26 02:37] LABS: Add Manual Diff / Slide Review NO; Basophils Absolute Auto 0 /uL (0-100); Basophils Percent Auto 0.4 % (0-2); Eosinophils Absolute Auto 100 /uL (0-450); Eosinophils Percent Auto 1.2 % (2-4); Hematocrit 25.5 % (41-53); Hemoglobin 8.4 g/dL (13.5-17.5); Lymphocytes Absolute Auto 5900 /uL (1100-4500); Lymphocytes Percent Auto 63.1 % (25-40); Mean Corpuscular HGB Conc 32.8 % (30-36); Mean Corpuscular Hemoglobin 31.8 PG (26-34); Mean Corpuscular Volume 97.1 fL (80-100); Monocytes Absolute Auto 800 /uL (0-900); Monocytes Percent Auto 8.4 % (3-14); Neutrophils Absolute Auto 2500 /uL (1500-7000); Neutrophils Percent Auto 26.9 % (50-75); Platelet Count 102 X10^3/uL (150-400); Red Blood Cell Count 2.62 X10^6/uL (4.5-5.9); Red Cell Distribution Width 18.5 % (11.6-14.8); White Blood Cell Count 9.3 X10^3/uL (4.5-11.0)
[2021-11-26 02:38] LABS: Acetaminophen < 10 ug/mL (10-30); Alanine Aminotransferase 25 IU/L (<50); Albumin 2.6 g/dL (3.5-5.0); Albumin Globulin Ratio 0.8 (1.0-2.8); Alkaline Phosphatase 207 U/L (38-126); Aspartate Aminotransferase 61 IU/L (17-59); Blood Urea Nitrogen 59 mg/dL (9-20); Calcium 8.2 mg/dL (8.4-10.2); Carbon Dioxide 26 mmol/L (22-32); Chloride 102 mmol/L (98-107); Estimated Glomerular Filt Rate 17 mL/min (>60); Ethanol (ETOH) 254 mg/dL; Globulin 3.2 g/dL (1.7-4.1); Glucose 104 mg/dL (70-100); HEMOLYSIS 19 (0-50); Potassium 3.9 mmol/L (3.4-5.1); Salicylate < 1.0 mg/dL (<20); Sodium 135 mmol/L (137-145); Total Protein 5.8 g/dL (6.3-8.2)
--- NOTE | 2021-11-26 02:44 | DI.CT.S_ITS ---
PROCEDURE: CT HEAD/BRAIN WO CON INDICATIONS: fall with head injury TECHNIQUE: Noncontrast 4.5 mm thick angled axial sections acquired from the foramen magnum to the vertex, with coronal and sagittal reformats. For radiation dose reduction, the following was used: automated exposure control, adjustment of mA and/or kV according to patient size. COMPARISON: [facility], CT, CT HEAD/BRAIN WO CON, 09/20/2020, 9:37. [facility], CT, CT LUMBAR SPINE WO CON, 11/26/2021, 3:09. [facility], CR, XR CHEST 1V, 11/26/2021, 3:00. [facility], CT, CT HEAD/BRAIN WO CON, 06/30/2021, 13:45. FINDINGS: Image quality: Excellent. CSF spaces: Basal cisterns are patent. No extra-axial fluid collections. Ventricles are normal in size and shape. Brain: No midline shift. No intracranial masses or hemorrhage. Sibley-white matter interface is normal. Skull and face: Calvarium and visualized facial bones are intact, without suspicious lesions. Sinuses: No abnormal fluid is seen within the mastoid air cells. IMPRESSION: No acute intracranial process is seen. No acute intracranial hemorrhage is seen. Stable from priors. Note: No significant discrepancy from the preliminary report. Dictated by: Mitchell Hernandez M.D. on 11/26/2021 at 8:04 Approved by: Mitchell Hernandez M.D. on 11/26/2021 at 8:05
--- NOTE | 2021-11-26 02:44 | DI.CT.S_ITS ---
PROCEDURE: CT LUMBAR SPINE WO CON INDICATIONS: fall with pain TECHNIQUE: Noncontrast 3 mm thick sections acquired from the T12 level to the sacrum. Sagittal and coronal reformats were constructed. For radiation dose reduction, the following was used: automated exposure control. COMPARISON: [facility], CT, CT LUMBAR SPINE WITHOUT CONTRAST, 03/24/2018, 3:34. [facility], CT, CT HEAD/BRAIN WO CON, 11/26/2021, 3:09. [facility], CR, XR CHEST 1V, 11/26/2021, 3:00. [facility], CT, CT LUMBAR SPINE WO CON, 09/20/2020, 9:37. FINDINGS: Image quality: Excellent. Bones: Multiple levels lumbar spine compression deformity can be seen, which are unchanged compared to the 09/20/2020 examination. The disc heights are relatively well preserved, involving T12 through L5. Multiple levels of lumbar spine degenerative change are seen, which are worst inferiorly, with several levels moderate to severe neural foraminal narrowing. Facet arthropathy is seen throughout, which is worst inferiorly. No suspicious lytic or blastic bony lesions. No pars defects. Soft tissues: No retroperitoneal masses or hematomas. Visualized aorta is normal in caliber. Right upper quadrant postoperative clips are seen. The kidneys appear mildly atrophic. IMPRESSION: No acute fracture is identified. Multiple levels of stable compression deformity can be seen. Degenerative changes are seen throughout, which are worst inferiorly and are similar to the prior CT examination. Note: No significant discrepancy from the preliminary report. Dictated by: Mitchell Hernandez M.D. on 11/26/2021 at 8:06 Approved by: Mitchell Hernandez M.D. on 11/26/2021 at 8:09
--- NOTE | 2021-11-26 02:44 | DI.RAD.S_ITS ---
PROCEDURE: XR CHEST 1V INDICATIONS: fall with pain TECHNIQUE: One view of the chest was acquired. COMPARISON: [facility], CR, XR CHEST 1V, 06/24/2021, 11:20. [facility], CT, CT LUMBAR SPINE WO CON, 11/26/2021, 3:09. [facility], CT, CT HEAD/BRAIN WO CON, 11/26/2021, 3:09. [facility], CR, XR CHEST 1V, 06/30/2021, 14:52. FINDINGS: Surgical changes and devices: Epigastric clips are seen. Left shoulder postoperative hardware is partially seen. Lungs and pleura: On this supine examination, no large pneumothorax or large pleural effusions are seen. No focal areas of lung consolidation are seen. Mediastinum: Mediastinal contours appear normal. Heart size is mildly enlarged. Bones and chest wall: No suspicious bony lesions. Age-appropriate bony degenerative changes are seen. Overlying soft tissues appear unremarkable. IMPRESSION: No displaced rib fracture or pneumothorax can be seen to the limits of this single-view supine study. Mild cardiomegaly. Postoperative and degenerative changes are seen. Note: No significant discrepancy from the preliminary report. Dictated by: Mitchell Hernandez M.D. on 11/26/2021 at 8:02 Approved by: Mitchell Hernandez M.D. on 11/26/2021 at 8:04
[2021-11-26 02:49] LABS: Troponin I < 0.012 ng/mL (0.01-0.034)
[2021-11-26 02:54] LABS: Procalcitonin 0.18 ng/mL (<0.5); Prolactin 13.9 ng/mL (3.7-17.9)
[2021-11-26 02:55] LABS: Ammonia (NH3) 74 umol/L (9-30)
[2021-11-26 03:13] LABS: Thyroid Stimulating Hormone 2.37 uIU/mL (0.47-4.68)
[2021-11-26 04:36] LABS: Appearance Urine UA CLEAR; Bilirubin Urine UA NEGATIVE (NEGATIVE); Color Urine UA YELLOW; Glucose Urine UA NEGATIVE (Negative); Ketones Urine UA NEGATIVE (NEGATIVE); Leukocyte Esterase Urine UA NEGATIVE (NEGATIVE); Nitrite Urine UA NEGATIVE (Negative); Occult Blood Urine UA 1+ (Negative); Protein Urine UA TRACE (Negative); Specific Gravity Urine UA <=1.005 (1.000-1.035); Urobilinogen Urine UA 0.2 E.U./dL (0.2); pH Urine UA 5.5 (4.5-8.0)
[2021-11-26 04:40] LABS: UR Morphine/Opiate cutoff 300 Negative (Negative); Ur Creatinine Normal (Normal); Ur Specific Gravity Normal (Normal); Urine Amphetamines Negative (Negative); Urine Barbiturates Negative (Negative); Urine Benzodiazepines Negative (Negative); Urine Cocaine Negative (Negative); Urine MDMA Negative (Negative); Urine Methadone Negative (Negative); Urine Methamphetamines Negative (Negative); Urine Oxycodone Negative (Negative); Urine Phencyclidine Negative (Negative); Urine Tetrahydrocannabinol Positive (Negative); Urine Tricyclic Antidepressant Negative (Negative); Urine pH Normal (Normal)
[2021-11-26 04:42] LABS: Bacteria Urine None Seen; RBC Urine 1-5/HPF (0-5/HPF); Squamous Epithelial Cell Urine None Seen (0-5/HPF); WBC Urine None Seen (0-5/HPF)
[2021-11-26 04:43] LABS: Culture Indicated Urine Cult Not Indicated
[2021-11-26] MEDS: LACTULOSE 20 GM/30 ML SOLUTION PO (04:51)
[2021-11-26] MEDS: fentaNYL 100 MCG/2 ML INJ 50 MCG IV (04:51)
[2021-11-26 05:22] LABS: COVID19 -Nasal RAPID Negative (Negative)
[2021-11-26] MEDS: SODIUM CHLORIDE 0.9% 1,000 ML 1000 ML IV (05:30)
[2021-11-26 06:25] LABS: Hematocrit 24.7 % (41-53); Mean Corpuscular HGB Conc 32.2 % (30-36); Mean Corpuscular Hemoglobin 31.5 PG (26-34); Mean Corpuscular Volume 97.6 fL (80-100); Platelet Count 104 X10^3/uL (150-400); Red Blood Cell Count 2.53 X10^6/uL (4.5-5.9); Red Cell Distribution Width 19.4 % (11.6-14.8); White Blood Cell Count 7.8 X10^3/uL (4.5-11.0)
[2021-11-26 06:34] LABS: Add Manual Diff / Slide Review YES; Alanine Aminotransferase 25 IU/L (<50); Albumin 2.4 g/dL (3.5-5.0); Albumin Globulin Ratio 0.8 (1.0-2.8); Alkaline Phosphatase 205 U/L (38-126); Aspartate Aminotransferase 53 IU/L (17-59); BUN Creatinine Ratio 14.4 (6-22); Blood Urea Nitrogen 54 mg/dL (9-20); Carbon Dioxide 26 mmol/L (22-32); Chloride 104 mmol/L (98-107); Estimated Glomerular Filt Rate 18 mL/min (>60); Globulin 3.1 g/dL (1.7-4.1); Glucose 114 mg/dL (70-100); HEMOLYSIS < 15 (0-50); Potassium 3.7 mmol/L (3.4-5.1); Sodium 137 mmol/L (137-145); Total Protein 5.5 g/dL (6.3-8.2)
[2021-11-26 06:47] LABS: Neutrophils Absolute Manual 2574 /uL (3000-5900); Total Cells Counted 100
[2021-11-26 06:48] LABS: Anisocytosis 2+
[2021-11-26] MEDS: THIAMINE 100 MG in SODIUM CHLORIDE 0.9% 100 ML 404 ML IV (11:23)
[2021-11-26] MEDS: ONDANSETRON 4 MG/2 ML INJ IV (12:52)
[2021-11-26 13:41] LABS: Ammonia (NH3) 143 umol/L (9-30)
[2021-11-26 13:42] LABS: BUN Creatinine Ratio 13.9 (6-22); Blood Urea Nitrogen 52 mg/dL (9-20); Calcium 8.2 mg/dL (8.4-10.2); Carbon Dioxide 25 mmol/L (22-32); Chloride 106 mmol/L (98-107); Estimated Glomerular Filt Rate 18 mL/min (>60); Glucose 98 mg/dL (70-100); HEMOLYSIS < 15 (0-50); Potassium 3.7 mmol/L (3.4-5.1); Sodium 137 mmol/L (137-145)
[2021-11-26] MEDS: LORazepam 2 MG/ML INJ IV (15:32)
== END 2021-11-26 17:11 | disposition short-term general hospital (02) ==
PROVIDERS: Emergency Medicine; Emergency Provider Emergency Medicine; Family Provider Internal Medicine; PCP Internal Medicine
DX: N17.9 Acute kidney failure, unspecified (principal); K72.00 Acute and subacute hepatic failure without coma; I12.9 Hypertensive chronic kidney disease with stage 1 through stage 4 chronic kidney disease, or unspecified chronic kidney disease; N18.9 Chronic kidney disease, unspecified; D63.1 Anemia in chronic kidney disease; I48.0 Paroxysmal atrial fibrillation; F10.230 Alcohol dependence with withdrawal, uncomplicated; Y90.8 Blood alcohol level of 240 mg/100 ml or more; Z88.5 Allergy status to narcotic agent; Z87.891 Personal history of nicotine dependence; Z94.4 Liver transplant status; Z20.822 Contact with and (suspected) exposure to COVID-19
CPT/HCPCS: 36415; 70450; 71045; 72131; 80048; 80053; 80305; 80320; 80329; 81001; 82140; 82550; 83605; 84145; 84146; 84443; 84484; 85007; 85025; 85610; 86850; 86900; 86901; 87040; 87635; 93005; 96361; 96365; 96375; 99285; 99291; C9803; G0480; J2060; J2405; J3010

== ENCOUNTER → 2021-12-15 14:21 | Outpatient (CLI) | payer OTHER, MEDICAID, SELFPAY ==
[2021-06-30 17:55] VITALS: BMI 30.1
[2021-12-15 17:35] LABS: Add Manual Diff / Slide Review NO; Basophils Absolute Auto 300 /uL (0-100); Basophils Percent Auto 4.6 % (0-2); Eosinophils Absolute Auto 100 /uL (0-450); Eosinophils Percent Auto 1.2 % (2-4); Hemoglobin 8.5 g/dL (13.5-17.5); Lymphocytes Absolute Auto 3200 /uL (1100-4500); Lymphocytes Percent Auto 46.9 % (25-40); Mean Corpuscular HGB Conc 32.7 % (30-36); Mean Corpuscular Hemoglobin 32.1 PG (26-34); Mean Corpuscular Volume 98.3 fL (80-100); Monocytes Absolute Auto 600 /uL (0-900); Monocytes Percent Auto 8.9 % (3-14); Neutrophils Absolute Auto 2600 /uL (1500-7000); Neutrophils Percent Auto 38.4 % (50-75); Platelet Count 152 X10^3/uL (150-400); Red Blood Cell Count 2.65 X10^6/uL (4.5-5.9); Red Cell Distribution Width 21.3 % (11.6-14.8); White Blood Cell Count 6.9 X10^3/uL (4.5-11.0)
[2021-12-15 18:20] LABS: Anisocytosis 2+; Platelet Estimate Adequate on smear
[2021-12-15 19:09] LABS: Ammonia (NH3) 30 umol/L (9-30)
[2021-12-15 19:11] LABS: Alanine Aminotransferase 16 IU/L (<50); Albumin 2.7 g/dL (3.5-5.0); Albumin Globulin Ratio 0.8 (1.0-2.8); Alkaline Phosphatase 246 U/L (38-126); Aspartate Aminotransferase 51 IU/L (17-59); BUN Creatinine Ratio 17.5 (6-22); Bilirubin Total 1.4 mg/dL (0.2-1.3); Blood Urea Nitrogen 45 mg/dL (9-20); Calcium 8.4 mg/dL (8.4-10.2); Carbon Dioxide 21 mmol/L (22-32); Chloride 105 mmol/L (98-107); Estimated Glomerular Filt Rate 28 mL/min (>60); Ethanol (ETOH) < 10 mg/dL; Globulin 3.4 g/dL (1.7-4.1); Glucose 112 mg/dL (70-100); Potassium 4.8 mmol/L (3.4-5.1); Sodium 131 mmol/L (137-145); Total Protein 6.1 g/dL (6.3-8.2)
[2021-12-15 19:20] LABS: HEMOLYSIS 81 (0-50)
== END ==
PROVIDERS: Family Provider Internal Medicine; PCP Internal Medicine; Referring Provider Internal Medicine; Visit Provider Internal Medicine
DX: T86.49 Other complications of liver transplant (principal); N18.4 Chronic kidney disease, stage 4 (severe); K72.90 Hepatic failure, unspecified without coma; F10.229 Alcohol dependence with intoxication, unspecified
CPT/HCPCS: 36415; 80053; 80320; 82140; 85025

== ENCOUNTER 2022-01-17 10:34 | Emergency (ER) | payer OTHER, MEDICAID, SELFPAY ==
[2021-06-30 17:55] VITALS: BMI 30.1
[2022-01-17] VITALS (8 sets, daily range): BP systolic 169; BP diastolic 94–114; PULSE 97–119; RESP 12–23; TEMP 37; O2SAT 96–99; BMI 30.1
--- NOTE | 2022-01-17 11:13 | DI.RAD.S_ITS ---
PROCEDURE: XR CHEST 1V INDICATIONS: chest pain TECHNIQUE: One view of the chest was acquired. COMPARISON: [facility], CR, XR CHEST 1V, 06/24/2021, 11:20. [facility], CR, XR CHEST 1V, 06/30/2021, 14:52. [facility], CR, XR CHEST 1V, 11/26/2021, 3:00. FINDINGS: Surgical changes and devices: There is partial visualization of left shoulder arthroplasty hardware. Right upper quadrant postoperative clips are faintly seen. Lower cervical spine fixation hardware can be seen. Lungs and pleura: On this semiupright portable chest examination, no large pneumothorax or large pleural effusions are seen. No focal infiltrates are seen. Low lung volumes are noted. This causes a crowded appearance to the lung markings and limits evaluation. Mediastinum: Mediastinal contours appear normal. Heart size is normal. Atherosclerotic calcification of the aortic arch is noted. Bones and chest wall: No suspicious bony lesions. Age-appropriate bony degenerative changes are seen. Overlying soft tissues appear unremarkable. IMPRESSION: Limited portable chest examination, without a significant cardiopulmonary abnormality identified. Postoperative and degenerative changes are seen. Dictated by: Mitchell Hernandez M.D. on 01/17/2022 at 10:39 Approved by: Mitchell Hernandez M.D. on 01/17/2022 at 10:40
[2022-01-17 11:44] LABS: Hematocrit 31.8 % (41-53); Hemoglobin 10.3 g/dL (13.5-17.5); Mean Corpuscular HGB Conc 32.3 % (30-36); Mean Corpuscular Hemoglobin 31.3 PG (26-34); Mean Corpuscular Volume 97.1 fL (80-100); Platelet Count 104 X10^3/uL (150-400); Red Blood Cell Count 3.28 X10^6/uL (4.5-5.9); Red Cell Distribution Width 19.2 % (11.6-14.8); White Blood Cell Count 7.9 X10^3/uL (4.5-11.0)
--- NOTE | 2022-01-17 11:46 | ED.BACK ---
HPI - Back Pain/Injury General Chief Complaint: Back Pain/Injury Stated Complaint: Back/abd pain x 3 days. open wound rt leg (edema) Time Seen by Provider: 01/17/22 11:46 Source: patient Mode of arrival: EMS (community patrol police lieutenant) Limitations: no limitations History of Present Illness HPI Narrative: This is a 56-year-old male with known prior liver transplant in 2013 secondary to prior hepatitis-C and alcohol use, chronic kidney disease, hypertension, dyslipidemia, proximal atrial fibrillation, chronic pain with housing insecurity. Patient presents with Community patrol police lieutenant he has been having some chronic back pain which is not acutely worse than his normal, he has a small wound on the back of his leg, he has also been swollen in general starting in his legs and moving up his extremities over the past three weeks and complaint of insomnia. Patient denies fevers. He denies any chest pain or pressure. He denies any shortness of breath. He denies any orthopnea. No cold, congestion or cough. He denies any nausea or vomiting. He denies any new issues with bowel movements or urination. Patient states that he had contact with his aspnet developer and labs 2 months ago. He states there has not been any discussion about dialysis at any point. He gets his care with Nephrology and hepatology through [facility]. Patient states he occasionally uses alcohol though he knows he should not, he states he has not had anything to drink for at least month, states he is a former smoker, does use marijuana but denies other illicit. Patient states besides his liver transplant he has a cervical fusion, left shoulder surgery, cholecystectomy, ex lap on his abdomen left elbow, hip surgery and surgery for fractures in his bilateral lower extremities. Patient has been meeting with the Community patrol police lieutenant as well as has a psych social worker Olga Lidia through [employer] that he met with earlier today. He is currently staying at a local hotel that they have help with placement for the short-term. Related Data Home Medications Medication Instructions Recorded Confirmed allopurinol 100 mg tablet 100 mg PO DAILY 01/14/20 07/01/21 cyclosporine modified 25 mg capsule 25 mg PO BID 01/14/20 07/01/21 duloxetine 20 mg capsule,delayed 20 mg PO DAILY 01/14/20 07/01/21 release (Cymbalta) fentanyl 25 mcg/hr transdermal 25 mcg TOPICAL Q72H 01/14/20 07/01/21 patch (Duragesic) gabapentin 300 mg capsule 300 mg PO BID 01/14/20 07/01/21 hydroxyzine pamoate 25 mg capsule 25 mg PO BEDTIME PRN 01/14/20 07/01/21 (Vistaril) lidocaine 5 % topical patch 1 patch TOPICAL DAILY 01/14/20 07/04/21 (Lidoderm) mycophenolate mofetil 500 mg 500 mg PO BID 01/14/20 07/01/21 tablet (CellCept) pyridoxine (vitamin B6) 100 mg 100 mg PO DAILY 01/14/20 05/09/21 tablet quetiapine 25 mg tablet (Seroquel) 25 mg PO BEDTIME 01/14/20 07/01/21 ursodiol 300 mg capsule 300 mg PO BID 01/14/20 07/01/21 vitamin B complex-vitamin C-folic 1 tab PO DAILY 01/14/20 05/09/21 acid 0.8 mg tablet (Kellie-Ramila) furosemide 20 mg tablet 20 mg PO DAILY 07/26/20 07/01/21 rifaximin 550 mg tablet (Xifaxan) 550 mg PO BID 09/20/20 07/01/21 metoprolol succinate 25 mg 25 mg PO DAILY 01/25/21 07/01/21 tablet,extended release 24 hr tamsulosin 0.4 mg capsule 0.4 mg PO BEDTIME 04/27/21 07/01/21 Previous Rx's Medication Instructions Recorded ondansetron 4 mg disintegrating 4 mg PO TID-QID PRN #10 tab 05/14/20 tablet pantoprazole 40 mg tablet,delayed 40 mg PO DAILY #30 tab 05/14/20 release (Protonix) hydromorphone 4 mg tablet 4 mg PO Q6H PRN #30 tab 09/24/20 naloxone 4 mg/actuation nasal 1 spray INTRANASAL PER PKG DIR 30 09/29/20 spray (Narcan) Days #1 ea aspirin 81 mg tablet,delayed 81 mg PO BID #90 tab 05/11/21 release oxycodone 10 mg tablet 10 mg PO Q3HR PRN #60 tab 05/11/21 lactulose 20 gram/30 mL oral 30 gm PO TID #09236 ml 07/05/21 solution diphenhydramine HCl 12.5 mg/5 mL 25 mg (10 mL) PO Q4-6H PRN #200 ml 07/06/21 oral liquid (Benadryl Allergy) famotidine 20 mg tablet (Pepcid AC) 20 mg PO BEDTIME #120 tab 07/06/21 losartan 25 mg tablet 25 mg PO DAILY #60 tab 07/06/21 nifedipine 30 mg tablet,extended 30 mg PO DAILY #60 tab 07/06/21 release 24 hr sucralfate 1 gram tablet 1 gm PO ACHS #240 tab 07/06/21 furosemide 40 mg tablet (Lasix) 40 mg PO DAILY #5 tab 01/17/22 lactulose 20 gram oral packet 20 g PO BID #1 ea 01/17/22 Allergies Allergy/AdvReac Type Severity Reaction Status Date / Time adhesive tape Allergy Severe Paper Verified 01/17/22 11:09 tape causes big sores doxylamine [From NyQuil] Allergy Severe Seizure Verified 01/17/22 11:09 venom-honey bee Allergy Severe Wheezing, Verified 01/17/22 11:09 [BEE VENOM (HONEY BEE)] throat closing pseudoephedrine Allergy Pt does Verified 01/17/22 11:09 not recall codeine AdvReac Severe Vomiting Verified 01/17/22 11:09 dextromethorphan AdvReac Severe Seizure Verified 01/17/22 11:09 NSAIDS (Non-Steroidal AdvReac Severe Abdominal Verified 01/17/22 11:09 Anti-Inflamma Pain copper AdvReac Intermediate Soaks Verified 01/17/22 11:09 into my body and hurts my jaw and joints morphine AdvReac Intermediate Vomiting Verified 01/17/22 11:09 oxycodone AdvReac Intermediate Vomiting Verified 01/17/22 11:09 tizanidine AdvReac Unknown Pt does Verified 01/17/22 11:09 not recall Review of Systems Review of Systems ROS Unobtainable: All systems reviewed & are unremarkable except as noted in HPI and below Patient History Medical History Cirrhosis of liver CKD (chronic kidney disease) Compression fracture Depression Former smoker GERD (gastroesophageal reflux disease) Gout Hepatitis C (~2011) History of vertebral compression fracture Hypertension Immunosuppression Liver cancer Medical marijuana use GUILLE (obstructive sleep apnea) Osteoporosis PAC (premature atrial contraction) Pain management contract agreement Paroxysmal atrial fibrillation PVC (premature ventricular contraction) Thrombocytopenia Surgical History H/O right wrist surgery History of biliary duct stent placement (01/2013) History of open reduction and internal fixation (ORIF) procedure (09/22/20) History of removal of retained hardware (01/25/21) History of right hip replacement Hx of appendectomy (~1979) Hx of cholecystectomy (~2003) Hx of elbow surgery (~2003) Hx of elbow surgery (~2007) Hx of fusion of cervical spine Hx of hernia repair Hx of shoulder surgery (~2012) Hx of tonsillectomy (~1969) Liver transplant recipient (11/24/11) Presence of left artificial elbow joint Family History Mother Renal failure Father Diabetes mellitus Congestive heart failure Social History household members: caregiver and none Smoking Status: Former smoker alcohol intake: current Smoking Status: Former smoker tobacco type: cigarettes alcohol intake frequency: a few times a month Alcohol type: hard liquor Substance Use Type: marijuana Exam Narrative Exam Narrative: GEN: well nourished, well appearing male, alert and oriented x 3, patient appears to be in mild distress. HEENT: Atraumatic, pupils are equal round reactive to light, extraocular movements are intact, no scleral icterus, nares are clear, TMs are clear with no fluid, there is no conjunctival pallor. Throat is clear without any exudates, erythema, tonsillar enlargement or uvular deviation HEART: Regular rate and rhythm without murmur, clicks, rubs. Pulses are equal in upper and lower extremities. Patient does have 1+ edema bilateral lower extremities. LUNGS:Lungs clear to auscultation, no wheezes, rales, crackles, chest moves symmetrically, no tachypnea accessory muscle use. ABD:bowel sounds normal, soft, non-tender, no guarding, rebound, rigidity, no masses noted, no hepatosplenomegaly :No CVA tenderness MSCL: Non-tender, no muscle atrophy, muscles strength 5/5 upper and lower extremities, full range of motion, normal gait NEURO:CN 2-12 intact, sensation normal, no asterixis. SKIN: No jaundice, patient has a small 1/2 cm scabbed over area on his anterior gaffney without any erythema, drainage or other changes. Initial Vital Signs Initial Vital Signs: Vital Signs Temperature 98.6 F 01/17/22 10:37 Pulse Rate 110 H 01/17/22 10:37 Respiratory Rate 23 01/17/22 10:37 Blood Pressure 169/114 H 01/17/22 10:37 Pulse Oximetry 99 01/17/22 10:37 Course Orders Ordered: Discontinued Medications Furosemide (Furosemide 40 Mg/4 Ml Vial) 40 mg IV NOW ONE Stop: 01/17/22 13:09 Last Admin: 01/17/22 13:31 Dose: 40 mg Documented by: AMNA Lactulose (Lactulose 20 Gm/30 Ml Solution) 20 gm PO NOW ONE Stop: 01/17/22 13:48 Last Admin: 01/17/22 14:29 Dose: 20 gm Documented by: AMNA Reevaluation(s) Reevaluation #1: Discussed with patient he does have chronic kidney disease unclear if he has had a normal baseline verses worsening, his ammonia is elevated today although he is clear and appropriate for me. Patient was offered admission although this may require transfer to a larger facility and that he also tested positive for coronavirus today. Patient does not wish to stay in the hospital he would like to be discharged home today. We discussed he needs follow-up in the next week to make sure that his renal function is improving as he needs diuresis but this can worsen his renal dysfunction. Consultations Consultation #1: Spoke with hospitalist admission. We may be able to keep the patient but based on his history with his liver dysfunction and renal dysfunction he might benefit from being a larger facility. At this time patient was unsure if he wanted to stay will recontact after patient decision. Vital Signs Vital signs: Vital Signs - 8 hr 01/17/22 12:00 01/17/22 12:30 01/17/22 15:34 Pulse Rate 116 H 115 H 97 H Respiratory Rate 13 12 22 Blood Pressure 169/94 H Pulse Oximetry 98 97 97 MDM - Back Pain/Injury Lab Data Result diagrams: 01/17/22 11:20 01/17/22 11:20 Labs: Lab Results 01/17/22 01/17/22 01/17/22 Range/Units 11:20 11:20 11:20 WBC 7.9 (4.5-11.0) X10^3/uL RBC 3.28 L (4.5-5.9) X10^6/uL Hgb 10.3 L (13.5-17.5) g/dL Hct 31.8 L (41-53) % MCV 97.1 (80-100) fL MCH 31.3 (26-34) PG MCHC 32.3 (30-36) % RDW 19.2 H (11.6-14.8) % Plt Count 104 L (150-400) X10^3/uL Neut % (Auto) Not Reportable Lymph % (Auto) Not Reportable Putnam % (Auto) Not Reportable Eos % (Auto) Not Reportable Baso % (Auto) Not Reportable Lymph # (Auto) Not Reportable [place] # (Auto) Not Reportable Baso # (Auto) Not Reportable Total Counted 100 Seg Neutrophils % 41.0 (38-70) % Band Neutrophils % 1.0 L (3-7) % Lymphocytes % (Manual) 47.0 H (25-45) % Atypical Lymphs % 2.0 H ( - 0) % Monocytes % (Manual) 7.0 (2-11) % Eosinophils % (Manual) 2.0 (2-4) % Neutrophils # (Manual) 3318 (0964-5895) /uL RBC Morphology See below Poikilocytosis 1+ H Anisocytosis 2+ H Target Cells 1+ H PT 11.4 (10.1-12.7) SECONDS INR 1.0 (0.9-1.3) APTT 36 D (26.4-36.2) SECONDS Sodium 134 L (137-145) mmol/L Potassium 4.2 (3.4-5.1) mmol/L Chloride 106 (98-107) mmol/L Carbon Dioxide 23 (22-32) mmol/L BUN 59 H (9-20) mg/dL Creatinine 3.75 H (0.66-1.25) mg/dL Estimated GFR 18 L (>60) mL/min BUN/Creatinine Ratio 15.7 (6-22) Glucose 110 H (70-100) mg/dL Calcium 8.6 (8.4-10.2) mg/dL Magnesium 1.9 (1.6-2.3) mg/dL Total Bilirubin 1.3 (0.2-1.3) mg/dL AST 54 (17-59) IU/L ALT 17 (<50) IU/L Alkaline Phosphatase 271 H (38-126) U/L Ammonia (9-30) umol/L Total Creatine Kinase 83 (55-170) U/L CK-MB (CK-2) TNP CK-MB (CK-2) Rel Index TNP Troponin I 0.033 (0.01-0.034) ng/mL NT-Pro-B Natriuret Pep 01293 H (<125) pg/mL Total Protein 6.2 L (6.3-8.2) g/dL Albumin 2.6 L (3.5-5.0) g/dL Globulin 3.6 (1.7-4.1) g/dL Albumin/Globulin Ratio 0.7 L (1.0-2.8) Lipase 23 (23-300) U/L Ethyl Alcohol ( - 10) mg/dL SARS-CoV-2 (PCR) (Negative) 01/17/22 01/17/22 01/17/22 Range/Units 11:20 11:20 15:00 WBC (4.5-11.0) X10^3/uL RBC (4.5-5.9) X10^6/uL Hgb (13.5-17.5) g/dL Hct (41-53) % MCV (80-100) fL MCH (26-34) PG MCHC (30-36) % RDW (11.6-14.8) % Plt Count (150-400) X10^3/uL Neut % (Auto) Lymph % (Auto) Putnam % (Auto) Eos % (Auto) Baso % (Auto) Lymph # (Auto) Putnam # (Auto) Baso # (Auto) Total Counted Seg Neutrophils % (38-70) % Band Neutrophils % (3-7) % Lymphocytes % (Manual) (25-45) % Atypical Lymphs % ( - 0) % Monocytes % (Manual) (2-11) % Eosinophils % (Manual) (2-4) % Neutrophils # (Manual) (6742-9667) /uL RBC Morphology Poikilocytosis Anisocytosis Target Cells PT (10.1-12.7) SECONDS INR (0.9-1.3) APTT (26.4-36.2) SECONDS Sodium (137-145) mmol/L Potassium (3.4-5.1) mmol/L Chloride (98-107) mmol/L Carbon Dioxide (22-32) mmol/L BUN (9-20) mg/dL Creatinine (0.66-1.25) mg/dL Estimated GFR (>60) mL/min BUN/Creatinine Ratio (6-22) Glucose (70-100) mg/dL Calcium (8.4-10.2) mg/dL Magnesium (1.6-2.3) mg/dL Total Bilirubin (0.2-1.3) mg/dL AST (17-59) IU/L ALT (<50) IU/L Alkaline Phosphatase (38-126) U/L Ammonia 93 H (9-30) umol/L Total Creatine Kinase (55-170) U/L CK-MB (CK-2) CK-MB (CK-2) Rel Index Troponin I (0.01-0.034) ng/mL NT-Pro-B Natriuret Pep (<125) pg/mL Total Protein (6.3-8.2) g/dL Albumin (3.5-5.0) g/dL Globulin (1.7-4.1) g/dL Albumin/Globulin Ratio (1.0-2.8) Lipase (23-300) U/L Ethyl Alcohol < 10 ( - 10) mg/dL SARS-CoV-2 (PCR) Positive H (Negative) Imaging Data Chest x-ray: Radiologist's Impression: Launch?Image [address] [address] XRay Report Signed Patient: Earnest Wilks MR#: [id number] : 1965 Acct:[id number] Age/Sex: 56 / M Date of Service: 01/17/22 Loc: ED Accession Number: [id number] ?? Procedure: XR chest 1V Ordering Provider: Yanique Hoyt D.O. PROCEDURE:? XR CHEST 1V ? INDICATIONS:? chest pain ? TECHNIQUE:? One view of the chest was acquired.? ? COMPARISON:? [facility], CR, XR CHEST 1V, 06/24/2021, 11:20.? [facility], CR, XR CHEST 1V, 06/30/2021, 14:52.? [facility], CR, XR CHEST 1V, 11/26/2021, 3:00. ? FINDINGS:? ? Surgical changes and devices:? There is partial visualization of left shoulder arthroplasty hardware.? Right upper quadrant postoperative clips are faintly seen.? Lower cervical spine fixation hardware can be seen. ? Lungs and pleura:? On this semiupright portable chest examination, no large pneumothorax or large pleural effusions are seen.? No focal infiltrates are seen.? Low lung volumes are noted. This causes a crowded appearance to the lung markings and limits evaluation.? ? Mediastinum:? Mediastinal contours appear normal.? Heart size is normal.? Atherosclerotic calcification of the aortic arch is noted.? ? Bones and chest wall:? No suspicious bony lesions.? Age-appropriate bony degenerative changes are seen.? Overlying soft tissues appear unremarkable.? ? IMPRESSION:? ? Limited portable chest examination, without a significant cardiopulmonary abnormality identified.? ? Postoperative and degenerative changes are seen.? ? ? Dictated by: Mitchell Hernandez M.D. on 01/17/2022 at 10:39 ? ? Approved by: Mitchell Hernandez M.D. on 01/17/2022 at 10:40?? ECG Data Attestation: I personally reviewed and interpreted this ECG as follows: Prior ECG tracings: available for review Interpretation: AFib with RVR, rate of 113 QRS 88 QTC 480. Patient shows no acute ST changes. Patient has prior from 11/26/2021 which appears similar in shows AFib at that time as well. MDM Narrative Medical decision making narrative: This is a 56-year-old male with prior history of liver transplant who continues to use alcohol intermittently, chronic kidney disease which may be acutely worsened today and increased swelling likely related to combination of his renal disease and liver disease. Patient does have some swelling, he does not appear to be in any distress, BNP is quite elevated, his renal function appears increased from most recent prior he has some from November but is likely above his normal baseline. His liver enzymes are normal but his ammonia is elevated today. Patient appears to be appropriate and decisional and does not wish to stay. He did test positive for COVID although his chest x-ray is negative, he has not had any hypoxia or tachycardia and at this time he would like to be discharged home. Patient is not candidate for Paxlovid secondary to renal dysfunction. Patient states he will return if any worsening symptoms or not improving. He has meeting set for tomorrow with Olga Lidia his psych social worker. Discharge Plan Departure Patient Disposition: Home Clinical Impression: CKD (chronic kidney disease), Increased ammonia level, COVID-19 virus infection Activity Restrictions/Additional Instructions: It is recommended you likely be admitted to follow your renal function while you have her diuretics increased and medicine for your ammonia level. Please follow up short term for recheck. Your renal function is decreased today and you need to be seen by your aspnet developer continued to have your renal function recheck this week. Your ammonia level is elevated, this is likely related to your liver failure you have been given lactulose and a prescription today which you should take. This medication will give you diarrhea. Prescriptions sent to [facility] in [place]. Please return for confusion, chest pain, shortness of breath, increasing swelling, persistent vomiting, decrease in her urine output or other new or concerning symptoms. Prescriptions: New furosemide [Lasix] 40 mg tablet 40 mg PO DAILY Qty: 5 0RF lactulose 20 gram packet 20 g PO BID Qty: 1 0RF No Action furosemide 20 mg tablet 20 mg PO DAILY 0RF tamsulosin 0.4 mg Capsule 0.4 mg PO BEDTIME 0RF aspirin 81 mg Tablet,Delayed Release (Dr/Ec) 81 mg PO BID Qty: 90 0RF oxycodone 10 mg Tablet 10 mg PO Q3HR PRN (Reason: Pain, Severe (7-10)) Qty: 60 0RF lactulose 20 gram/30 mL Solution 30 gm PO TID Qty: 48889 0RF sucralfate 1 gram Tablet 1 gm PO ACHS Qty: 240 0RF famotidine [Pepcid AC] 20 mg Tablet 20 mg PO BEDTIME Qty: 120 0RF diphenhydramine HCl [Benadryl Allergy] 12.5 mg/5 mL liquid 25 mg PO Q4-6H PRN (Reason: nausea and vomiting) Qty: 200 0RF nifedipine 30 mg Tablet Extended Release 24hr 30 mg PO DAILY Qty: 60 0RF losartan 25 mg Tablet 25 mg PO DAILY Qty: 60 0RF quetiapine [Seroquel] 25 mg Tablet 25 mg PO BEDTIME 0RF cyclosporine modified 25 mg Capsule 25 mg PO BID 0RF allopurinol 100 mg Tablet 100 mg PO DAILY 0RF mycophenolate mofetil [CellCept] 500 mg Tablet 500 mg PO BID 0RF lidocaine [Lidoderm] 5 % Adhesive Patch,Medicated 1 patch TOPICAL DAILY 0RF ursodiol 300 mg Capsule 300 mg PO BID 0RF gabapentin 300 mg Capsule 300 mg PO BID 0RF Kellie-Ramila 0.8 mg Tablet 1 tab PO DAILY 0RF pyridoxine (vitamin B6) 100 mg Tablet 100 mg PO DAILY 0RF fentanyl [Duragesic] 25 mcg/hr Patch 72 Hour 25 mcg topical Q72H 0RF hydroxyzine pamoate [Vistaril] 25 mg Capsule 25 mg PO BEDTIME PRN (Reason: Itching) 0RF duloxetine [Cymbalta] 20 mg Capsule,Delayed Release(Dr/Ec) 20 mg PO DAILY 0RF ondansetron 4 mg tablet,disintegrating 4 mg PO TID-QID PRN (Reason: nausea and vomiting) Qty: 10 0RF pantoprazole [Protonix] 40 mg tablet,delayed release (DR/EC) 40 mg PO DAILY Qty: 30 0RF Xifaxan 550 mg Tablet 550 mg PO BID 0RF hydromorphone 4 mg tablet 4 mg PO Q6H PRN (Reason: pain) Qty: 30 0RF Narcan 4 mg/actuation [place],Non-Aerosol 1 spray INTRANASAL PER PKG DIR 30 Days Qty: 1 0RF Label Comments: patient has never used before Rx Instructions: 1 spray q2 minutes for opiate overdose metoprolol succinate 25 mg tablet extended release 24 hr 25 mg PO DAILY 0RF Referrals: Kevin Porter MD [Primary Care Provider] - Visit Report Forms: Patient Portal/API
[2022-01-17 11:47] LABS: Add Manual Diff / Slide Review YES
[2022-01-17 11:48] LABS: Prothrombin Time 11.4 SECONDS (10.1-12.7)
[2022-01-17 11:51] LABS: PTT Partial Thromboplastin Tim 36 SECONDS (26.4-36.2)
[2022-01-17 12:01] LABS: Ammonia (NH3) 93 umol/L (9-30)
[2022-01-17 12:02] LABS: Alanine Aminotransferase 17 IU/L (<50); Albumin 2.6 g/dL (3.5-5.0); Albumin Globulin Ratio 0.7 (1.0-2.8); Alkaline Phosphatase 271 U/L (38-126); Aspartate Aminotransferase 54 IU/L (17-59); BUN Creatinine Ratio 15.7 (6-22); Bilirubin Total 1.3 mg/dL (0.2-1.3); Blood Urea Nitrogen 59 mg/dL (9-20); Calcium 8.6 mg/dL (8.4-10.2); Carbon Dioxide 23 mmol/L (22-32); Chloride 106 mmol/L (98-107); Creatine Kinase 83 U/L (55-170); Estimated Glomerular Filt Rate 18 mL/min (>60); Globulin 3.6 g/dL (1.7-4.1); Glucose 110 mg/dL (70-100); Lipase 23 U/L (23-300); Magnesium 1.9 mg/dL (1.6-2.3); Potassium 4.2 mmol/L (3.4-5.1); Sodium 134 mmol/L (137-145); Total Protein 6.2 g/dL (6.3-8.2)
[2022-01-17 12:15] LABS: HEMOLYSIS < 15 (0-50); Troponin I 0.033 ng/mL (0.01-0.034)
[2022-01-17 12:18] LABS: Neutrophils Absolute Manual 3318 /uL (3000-5900); Total Cells Counted 100
[2022-01-17 12:20] LABS: Anisocytosis 2+; Target Cells 1+
[2022-01-17 12:21] LABS: Poikilocytosis 1+
[2022-01-17 12:25] LABS: NT-proBNP (BNP-Adult 18+) 39800 pg/mL (<125)
[2022-01-17 12:41] LABS: Ethanol (ETOH) < 10 mg/dL
[2022-01-17] MEDS: FUROSEMIDE 40 MG/4 ML VIAL IV (13:31)
[2022-01-17] MEDS: LACTULOSE 20 GM/30 ML SOLUTION PO (14:29)
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
[2022-01-17 15:31] LABS: COVID19 -Nasal RAPID POSITIVE (Negative)
== END 2022-01-17 15:33 | disposition home or self-care (01) ==
PROVIDERS: Emergency Provider Emergency Medicine; Family Provider Internal Medicine; PCP Internal Medicine
DX: N18.9 Chronic kidney disease, unspecified (principal); R79.89 Other specified abnormal findings of blood chemistry; U07.1 COVID-19; R07.9 Chest pain, unspecified
CPT/HCPCS: 36415; 71045; 80053; 80320; 82140; 82550; 83690; 83735; 83880; 84484; 85007; 85025; 85610; 85730; 87635; 93005; 93010; 96374; 99284; C9803; J1940

== ENCOUNTER 2022-01-18 20:10 | Emergency (ER) | payer OTHER, MEDICAID, SELFPAY ==
[2021-06-30 17:55] VITALS: BMI 30.1
[2022-01-18 20:36] VITALS: BP 165/102; PULSE 85; RESP 18; TEMP 37; O2SAT 97
--- NOTE | 2022-01-18 22:51 | ED_ITS ---
HPI - Recheck/Abnormal Lab/Rx General Chief Complaint: Recheck/Abnormal Lab/Rx Stated Complaint: difficulty breathing, not feeling well Time Seen by Provider: 01/18/22 21:57 Source: patient Mode of arrival: Wheelchair History of Present Illness HPI narrative: 56-year-old male former smoker with extensive medical history including liver tr ansplant, chronic kidney disease, prior alcohol abuse presents with multiple symptoms. Patient had been seen and evaluated yesterday and was complaining of shortness of breath and found to be COVID positive. He states he still feels slightly short of breath but not terrible. He denies any increased shortness of breath with laying flat or even exertion but states he just feels like it is hard to breathe. He has had some cough but without any sputum. He denies any fever or chills. He also now has generalized, colicky abdominal pain without provocation or palliation. He states that maybe he has had less bowel movements than normal but is still passing gas. He denies any dysuria, frequency or urgency. Additionally he states he is having some back pain that seems to be worse with motion and improves with rest. He denies any radiation down his legs, he denies loss of control of bowel or bladder, lower extremity weakness or footdrop. Related Data Home Medications Medication Instructions Recorded Confirmed allopurinol 100 mg tablet 100 mg PO DAILY 01/14/20 07/01/21 cyclosporine modified 25 mg capsule 25 mg PO BID 01/14/20 07/01/21 duloxetine 20 mg capsule,delayed 20 mg PO DAILY 01/14/20 07/01/21 release (Cymbalta) fentanyl 25 mcg/hr transdermal 25 mcg topical Q72H 01/14/20 07/01/21 patch (Duragesic) gabapentin 300 mg capsule 300 mg PO BID 01/14/20 07/01/21 hydroxyzine pamoate 25 mg capsule 25 mg PO BEDTIME PRN Itching 01/14/20 07/01/21 (Vistaril) lidocaine 5 % topical patch 1 patch topical DAILY 01/14/20 07/04/21 (Lidoderm) mycophenolate mofetil 500 mg 500 mg PO BID 01/14/20 07/01/21 tablet (CellCept) pyridoxine (vitamin B6) 100 mg 100 mg PO DAILY 01/14/20 05/09/21 tablet quetiapine 25 mg tablet (Seroquel) 25 mg PO BEDTIME 01/14/20 07/01/21 ursodiol 300 mg capsule 300 mg PO BID 01/14/20 07/01/21 vitamin B complex-vitamin C-folic 1 tab PO DAILY 01/14/20 05/09/21 acid 0.8 mg tablet (Kellie-Ramila) furosemide 20 mg tablet 20 mg PO DAILY 07/26/20 07/01/21 rifaximin 550 mg tablet (Xifaxan) 550 mg PO BID 09/20/20 07/01/21 metoprolol succinate 25 mg 25 mg PO DAILY 01/25/21 07/01/21 tablet,extended release 24 hr tamsulosin 0.4 mg capsule 0.4 mg PO BEDTIME 04/27/21 07/01/21 Previous Rx's Medication Instructions Recorded ondansetron 4 mg disintegrating 4 mg PO TID-QID PRN nausea and 05/14/20 tablet vomiting #10 tabs pantoprazole 40 mg tablet,delayed 40 mg PO DAILY #30 tabs 05/14/20 release (Protonix) hydromorphone 4 mg tablet 4 mg PO Q6H PRN pain #30 tabs 09/24/20 naloxone 4 mg/actuation nasal 1 spray intranasal PER PKG DIR 30 09/29/20 spray (Narcan) days #1 ea aspirin 81 mg tablet,delayed 81 mg PO BID #90 tabs 05/11/21 release oxycodone 10 mg tablet 10 mg PO Q3HR PRN Pain, Severe 05/11/21 (7-10) #60 tabs lactulose 20 gram/30 mL oral 30 gm PO TID #11,000 mL 07/05/21 solution diphenhydramine HCl 12.5 mg/5 mL 25 mg (10 mL) PO Q4-6H PRN nausea 07/06/21 oral liquid (Benadryl Allergy) and vomiting #200 mL famotidine 20 mg tablet (Pepcid AC) 20 mg PO BEDTIME #120 tabs 07/06/21 losartan 25 mg tablet 25 mg PO DAILY #60 tabs 07/06/21 nifedipine 30 mg tablet,extended 30 mg PO DAILY #60 tabs 07/06/21 release 24 hr sucralfate 1 gram tablet 1 gm PO ACHS #240 tabs 07/06/21 furosemide 40 mg tablet (Lasix) 40 mg PO DAILY #5 tabs 01/17/22 lactulose 20 gram oral packet 20 g PO BID #1 ea 01/17/22 Allergies Allergy/AdvReac Type Severity Reaction Status Date / Time adhesive tape Allergy Severe Paper Verified 01/17/22 11:09 tape causes big sores doxylamine [From NyQuil] Allergy Severe Seizure Verified 01/17/22 11:09 venom-honey bee Allergy Severe Wheezing, Verified 01/17/22 11:09 [BEE VENOM (HONEY BEE)] throat closing pseudoephedrine Allergy Pt does Verified 01/17/22 11:09 not recall codeine AdvReac Severe Vomiting Verified 01/17/22 11:09 dextromethorphan AdvReac Severe Seizure Verified 01/17/22 11:09 NSAIDS (Non-Steroidal AdvReac Severe Abdominal Verified 01/17/22 11:09 Anti-Inflamma Pain copper AdvReac Intermediate Soaks Verified 01/17/22 11:09 into my body and hurts my jaw and joints morphine AdvReac Intermediate Vomiting Verified 01/17/22 11:09 oxycodone AdvReac Intermediate Vomiting Verified 01/17/22 11:09 tizanidine AdvReac Unknown Pt does Verified 01/17/22 11:09 not recall Review of Systems Review of Systems Narrative: GENERAL: See HPI HEENT: Denies sinus pain, ear pain, sore throat, difficulty swallowing, dizziness. RESPIRATORY: See HPI CARDIOVASCULAR: Denies chest pain, palpitations, orthopnea, edema, GASTROINTESTINAL: See HPI : Denies dysuria, frequency, incontinence, hematuria, urinary retention. MUSCULOSKELETAL: See HPI SKIN: Denies rash, skin lesions, or other NEUROLOGIC: Denies weakness, headache, numbness, change in speech, confusion, seizures, incoordination. PSYCHIATRIC: No concerning psychosocial issues. 12 point review of systems is negative except for those stated above Patient History Medical History Cirrhosis of liver CKD (chronic kidney disease) Compression fracture Depression Former smoker GERD (gastroesophageal reflux disease) Gout Hepatitis C (~2011) History of vertebral compression fracture Hypertension Immunosuppression Liver cancer Medical marijuana use GUILLE (obstructive sleep apnea) Osteoporosis PAC (premature atrial contraction) Pain management contract agreement Paroxysmal atrial fibrillation PVC (premature ventricular contraction) Thrombocytopenia Surgical History H/O right wrist surgery History of biliary duct stent placement (01/2013) History of open reduction and internal fixation (ORIF) procedure (09/22/20) History of removal of retained hardware (01/25/21) History of right hip replacement Hx of appendectomy (~1979) Hx of cholecystectomy (~2003) Hx of elbow surgery (~2003) Hx of elbow surgery (~2007) Hx of fusion of cervical spine Hx of hernia repair Hx of shoulder surgery (~2012) Hx of tonsillectomy (~1969) Liver transplant recipient (11/24/11) Presence of left artificial elbow joint Family History Mother Renal failure Father Diabetes mellitus Congestive heart failure Social History household members: caregiver and none Smoking Status: Former smoker alcohol intake: current Smoking Status: Former smoker tobacco type: cigarettes alcohol intake frequency: a few times a month Alcohol type: hard liquor Substance Use Type: marijuana Exam Narrative Exam Narrative: GENERAL: [56] year old patient appears older than stated age. Well-developed patient, in mild distress. HEAD: Atraumatic. Normocephalic. EYES: Pupils equal round and reactive. Extraocular motions intact. No scleral icterus. No injection or drainage. ENT: Nose without bleeding, purulent drainage. Throat without erythema, tonsillar hypertrophy or exudate. Airway patent. NECK: Trachea midline. Non tender CARDIOVASCULAR: Regular rate and rhythm without murmurs, gallops, or rubs. RESPIRATORY: Clear to auscultation. Breath sounds equal bilaterally. No wheezes, rales, or rhonchi. No increased work of breathing, use of accessory muscles or hypoxemia GASTROINTESTINAL: Abdomen soft, generalized tenderness, perhaps worse in the epigastrium, bowel sounds present nondistended. EXTREMITIES: No edema or joint tenderness. BACK: Nontender without deformity or crepitance. No flank tenderness. NEURO: AOx3. SKIN: No rash or erythema of visible areas Initial Vital Signs Initial Vital Signs: Vital Signs Temperature 98.6 F 01/18/22 20:36 Pulse Rate 85 01/18/22 20:36 Respiratory Rate 18 01/18/22 20:36 Blood Pressure 165/102 H 01/18/22 20:36 Pulse Oximetry 97 01/18/22 20:36 Oxygen Delivery Method 01/18/22 20:36 Course Orders Ordered: Discontinued Medications Hydromorphone HCl (Hydromorphone 1 Mg Inj) 1 mg IV NOW ONE Stop: 01/19/22 01:43 Last Admin: 01/19/22 01:53 Dose: 1 mg Documented By: HOLDEN Sodium Chloride (Normal Saline 0.9%) 500 mls @ 1,000 mls/hr IV BOLUS ONE Stop: 01/18/22 23:28 Last Infusion: 01/19/22 01:36 Dose: 0 mls/hr Documented By: Admin: 01/19/22 00:17 Dose: 1,000 mls/hr Documented By: HOLDEN Ondansetron HCl (Ondansetron 4 Mg/2 Ml Inj) 4 mg IV NOW ONE Stop: 01/19/22 01:43 Last Admin: 01/19/22 01:53 Dose: 4 mg Documented By: HOLDEN Vital Signs Vital signs: Vital Signs - 8 hr 01/19/22 02:41 01/19/22 02:41 01/19/22 03:00 Pulse Rate 66 66 65 Respiratory Rate 18 12 10 L Blood Pressure 203/107 H Pulse Oximetry 98 96 96 Oxygen Delivery Method Room Air 01/19/22 03:01 01/19/22 03:01 Pulse Rate 65 Respiratory Rate 14 Blood Pressure 192/98 H Pulse Oximetry 96 Oxygen Delivery Method MDM - Recheck/Abnormal Lab/Rx Lab Data Result diagrams: 01/18/22 23:30 01/18/22 23:30 Labs: Lab Results 01/18/22 01/18/22 01/19/22 Range/Units 23:30 23:30 00:40 WBC 7.8 (4.5-11.0) X10^3/uL RBC 3.14 L (4.5-5.9) X10^6/uL Hgb 10.1 L (13.5-17.5) g/dL Hct 30.3 L (41-53) % MCV 96.5 (80-100) fL MCH 32.0 (26-34) PG MCHC 33.2 (30-36) % RDW 19.2 H (11.6-14.8) % Plt Count 98 L (150-400) X10^3/uL Neut % (Auto) 37.1 L (50-75) % Lymph % (Auto) 48.7 H (25-40) % Harrison % (Auto) 9.1 (3-14) % Eos % (Auto) 2.1 (2-4) % Baso % (Auto) 3.0 H (0-2) % Neut # (Auto) 2900 (6747-7513) /uL Lymph # (Auto) 3800 (0055-3283) /uL Harrison # (Auto) 700 (0-900) /uL Eos # (Auto) 200 (0-450) /uL Baso # (Auto) 200 H (0-100) /uL Sodium 137 (137-145) mmol/L Potassium 4.5 (3.4-5.1) mmol/L Chloride 109 H (98-107) mmol/L Carbon Dioxide 21 L (22-32) mmol/L BUN 59 H (9-20) mg/dL Creatinine 3.91 H (0.66-1.25) mg/dL Estimated GFR 17 L (>60) mL/min BUN/Creatinine Ratio 15.1 (6-22) Glucose 102 H (70-100) mg/dL Calcium 8.5 (8.4-10.2) mg/dL Magnesium 1.8 (1.6-2.3) mg/dL Total Bilirubin 1.1 (0.2-1.3) mg/dL AST 40 (17-59) IU/L ALT 14 (<50) IU/L Alkaline Phosphatase 241 H (38-126) U/L Total Creatine Kinase 85 (55-170) U/L CK-MB (CK-2) TNP CK-MB (CK-2) Rel Index TNP Troponin I 0.039 H (0.01-0.034) ng/mL C-Reactive Protein 2.1 H (<1.0) mg/dL NT-Pro-B Natriuret Pep 88730 H (<125) pg/mL Total Protein 5.8 L (6.3-8.2) g/dL Albumin 2.4 L (3.5-5.0) g/dL Globulin 3.4 (1.7-4.1) g/dL Albumin/Globulin Ratio 0.7 L (1.0-2.8) Lipase 45 D (23-300) U/L Urine RBC 10-30/hpf H (0-5/HPF) Urine WBC None seen (0-5/HPF) Urine Bacteria None seen (None) Ur Culture Indicated? Culture not indicate Micro UA Comment * Urine Dip Bedside Urine Glucose Negative Bedside Urine Bilirubin - Negative Bedside Urine Ketone - Negative Urine Specific [place] 1.020 Bedside Urine Occult Blood +++ Bedside Urine pH 6.0 Bedside Urine Protein +++ 300 Bedside Urine Urobilinogen - Negative Bedside Urine Nitrite - Negative Bedside Urine Leukocytes - Negative Esterase MDM Narrative Medical decision making narrative: Multiple etiologies for patient's symptoms considered include, but not limited to: [Bowel obstruction versus kidney stone versus diverticulitis versus other Patient's symptoms improved over duration of stay with above-stated therapies. History, physical exam, labs, imaging, and response to therapies have been reassuring. Findings and discharge diagnosis discussed with patient/family followed by verbalization of understanding Return precautions discussed with patient/family whom verbalize understanding. Pain has been well controlled and patient is tolerating oral hydration. Discharge Plan Departure Patient Disposition: Home Clinical Impression: COVID, HTN (hypertension), Abdominal pain in male Instructions: DI for Abdominal Pain-Adult Activity Restrictions/Additional Instructions: *You have been diagnosed with [abdominal pain] * As we discussed your history and physical exam as well as labs and imaging are very reassuring. There is no evidence of any severe diagnoses that would require a specific or immediate intervention. *What to do: *Please continue to take your regular medications as directed. *Please follow up with your primary care provider in 2-3 days, call for an appoi ntment. Let them know you were seen in the Emergency Department and that we ask that you be seen in follow up. We will electronically transmit a record of today's note if your PCP is in our system *Please consider a clear liquid diet for the next 24-48 hours and then slowly advance to regular as tolerated. Also, try to avoid alcohol, nicotine, caffeine, spicy, acidic or fatty foods as this may worsen your symptoms *If you do not have a primary care provider please contact the [facility] R obi line at [phone]. They will ask some questions about your medical history and help get you set up with a doctor in the community. *Return to Emergency Department if you should have any new, worsening or concerning symptoms, such as [fever greater than 101 F, shaking chills, worsening pain, persistent vomiting or other bothersome symptoms] Prescriptions: No Action furosemide 20 mg tablet 20 mg PO DAILY tamsulosin 0.4 mg Capsule 0.4 mg PO BEDTIME aspirin 81 mg Tablet,Delayed Release (Dr/Ec) 81 mg PO BID Qty: 90 0RF oxycodone 10 mg Tablet 10 mg PO Q3HR PRN (Reason: Pain, Severe (7-10)) Qty: 60 0RF lactulose 20 gram/30 mL Solution 30 gm PO TID Qty: 34240 0RF sucralfate 1 gram Tablet 1 gm PO ACHS Qty: 240 0RF famotidine [Pepcid AC] 20 mg Tablet 20 mg PO BEDTIME Qty: 120 0RF diphenhydramine HCl [Benadryl Allergy] 12.5 mg/5 mL liquid 25 mg PO Q4-6H PRN (Reason: nausea and vomiting) Qty: 200 0RF nifedipine 30 mg Tablet Extended Release 24hr 30 mg PO DAILY Qty: 60 0RF losartan 25 mg Tablet 25 mg PO DAILY Qty: 60 0RF furosemide [Lasix] 40 mg tablet 40 mg PO DAILY Qty: 5 0RF lactulose 20 gram packet 20 g PO BID Qty: 1 0RF quetiapine [Seroquel] 25 mg Tablet 25 mg PO BEDTIME cyclosporine modified 25 mg Capsule 25 mg PO BID allopurinol 100 mg Tablet 100 mg PO DAILY mycophenolate mofetil [CellCept] 500 mg Tablet 500 mg PO BID lidocaine [Lidoderm] 5 % Adhesive Patch,Medicated 1 patch TOPICAL DAILY ursodiol 300 mg Capsule 300 mg PO BID gabapentin 300 mg Capsule 300 mg PO BID Kellie-Ramila 0.8 mg Tablet 1 tab PO DAILY pyridoxine (vitamin B6) 100 mg Tablet 100 mg PO DAILY fentanyl [Duragesic] 25 mcg/hr Patch 72 Hour 25 mcg topical Q72H hydroxyzine pamoate [Vistaril] 25 mg Capsule 25 mg PO BEDTIME PRN (Reason: Itching) duloxetine [Cymbalta] 20 mg Capsule,Delayed Release(Dr/Ec) 20 mg PO DAILY ondansetron 4 mg tablet,disintegrating 4 mg PO TID-QID PRN (Reason: nausea and vomiting) Qty: 10 0RF pantoprazole [Protonix] 40 mg tablet,delayed release (DR/EC) 40 mg PO DAILY Qty: 30 0RF Xifaxan 550 mg Tablet 550 mg PO BID hydromorphone 4 mg tablet 4 mg PO Q6H PRN (Reason: pain) Qty: 30 0RF Narcan 4 mg/actuation [place],Non-Aerosol 1 spray INTRANASAL PER PKG DIR 30 Days Qty: 1 0RF Label Comments: patient has never used before Rx Instructions: 1 spray q2 minutes for opiate overdose metoprolol succinate 25 mg tablet extended release 24 hr 25 mg PO DAILY Referrals: Kevin Porter MD [Primary Care Provider] - Visit Report Forms: Patient Portal/API
--- NOTE | 2022-01-18 23:00 | DI.RAD.S_ITS ---
PROCEDURE: XR CHEST 2V INDICATIONS: SOB TECHNIQUE: 2 views of the chest were acquired. COMPARISON: [facility], CR, XR CHEST 1V, 11/26/2021, 3:00. [facility], CR, XR CHEST 1V, 01/17/2022, 11:28. FINDINGS: Surgical changes and devices: None. Lungs and pleura: There is pulmonary vascular prominence compatible with pulmonary edema. No focal consolidation. No pleural effusions or pneumothorax. Mediastinum: Mediastinal contours are unchanged. Heart size is normal. Bones and chest wall: No suspicious bony abnormalities. Soft tissues appear unremarkable. IMPRESSION: 1. Pulmonary edema demonstrated which may be due to cardiogenic or noncardiogenic etiologies such as atypical pneumonia. Dictated by: Dom Berman M.D. on 01/19/2022 at 1:19 Approved by: Dom Berman M.D. on 01/19/2022 at 1:20
[2022-01-18 23:51] LABS: Add Manual Diff / Slide Review NO; Basophils Absolute Auto 200 /uL (0-100); Eosinophils Absolute Auto 200 /uL (0-450); Eosinophils Percent Auto 2.1 % (2-4); Hematocrit 30.3 % (41-53); Hemoglobin 10.1 g/dL (13.5-17.5); Lymphocytes Absolute Auto 3800 /uL (1100-4500); Lymphocytes Percent Auto 48.7 % (25-40); Mean Corpuscular HGB Conc 33.2 % (30-36); Mean Corpuscular Volume 96.5 fL (80-100); Monocytes Absolute Auto 700 /uL (0-900); Monocytes Percent Auto 9.1 % (3-14); Neutrophils Absolute Auto 2900 /uL (1500-7000); Neutrophils Percent Auto 37.1 % (50-75); Platelet Count 98 X10^3/uL (150-400); Red Blood Cell Count 3.14 X10^6/uL (4.5-5.9); Red Cell Distribution Width 19.2 % (11.6-14.8); White Blood Cell Count 7.8 X10^3/uL (4.5-11.0)
[2022-01-19 00:07] LABS: Alanine Aminotransferase 14 IU/L (<50); Albumin 2.4 g/dL (3.5-5.0); Albumin Globulin Ratio 0.7 (1.0-2.8); Aspartate Aminotransferase 40 IU/L (17-59); BUN Creatinine Ratio 15.1 (6-22); Bilirubin Total 1.1 mg/dL (0.2-1.3); Blood Urea Nitrogen 59 mg/dL (9-20); C-Reactive Protein Quant 2.1 mg/dL (<1.0); Calcium 8.5 mg/dL (8.4-10.2); Chloride 109 mmol/L (98-107); Creatine Kinase 85 U/L (55-170); Estimated Glomerular Filt Rate 17 mL/min (>60); Globulin 3.4 g/dL (1.7-4.1); Glucose 102 mg/dL (70-100); HEMOLYSIS < 15 (0-50); Lipase 45 U/L (23-300); Magnesium 1.8 mg/dL (1.6-2.3); Potassium 4.5 mmol/L (3.4-5.1); Sodium 137 mmol/L (137-145); Total Protein 5.8 g/dL (6.3-8.2)
[2022-01-19 00:16] LABS: NT-proBNP (BNP-Adult 18+) 28100 pg/mL (<125); Troponin I 0.039 ng/mL (0.01-0.034)
[2022-01-19] MEDS: SODIUM CHLORIDE 0.9% 500 ML 1000 ML IV (00:17)
[2022-01-19 00:28] LABS: Alkaline Phosphatase 241 U/L (38-126); Carbon Dioxide 21 mmol/L (22-32)
--- NOTE | 2022-01-19 01:34 | DI.CT.S_ITS ---
PROCEDURE: CT CHEST ABD PEL WO CON INDICATIONS: severe abdomninal pain, liver disease, kidney disease TECHNIQUE: After the administration of oral contrast, 5 mm thick sections acquired from the lung apices to the symphysis pubis. 5 mm thick coronal and sagittal reformats acquired, with additional 7 mm coronal MIP reformats through the lungs. For radiation dose reduction, the following was used: automated exposure control, adjustment of mA and/or kV according to patient size. COMPARISON: [facility], CT, ABDOMEN/PELVIS WITH CONTRAST, 11/09/2014, 20:52. [facility], CT, ABDOMEN W&W/O CONTRAST, 02/24/2011, 8:41. [facility], CT, ABDOMEN/PELVIS WITHOUT CONTRAS, 06/02/2017, 17:36. [facility], CT, CT ABDOMEN PELVIS WO CON, 05/13/2020, 22:37. FINDINGS: Image quality: Excellent. CHEST: Lungs and pleura: Small bilateral pleural effusions. Mild interlobular septal thickening is seen with areas of mild ground-glass opacity, likely related to mild edema. No pneumothorax Central and peripheral airways are patent are normal in caliber. Mediastinum: Heart size is normal, although the left atrium is mildly enlarged. No pericardial effusion. Mitral annular calcifications are present. No mediastinal adenopathy by CT size criteria. Thoracic aorta and central pulmonary arteries are normal in size. Esophagus is normal in caliber. No hiatal hernia. Chest wall: No axillary or supraclavicular adenopathy by size criteria. Thyroid is unremarkable. ABDOMEN: Solid organs: Postsurgical changes from prior liver transplant. No focal hepatic lesion is seen. Status post cholecystectomy. Pancreas is normal in contours. Spleen is normal in size. No adrenal nodules. Both kidneys demonstrate mild cortical thinning, without hydronephrosis or nephrolithiasis. An exophytic cyst is seen posterior to the right kidney. Bilateral perinephric stranding is most likely chronic. Peritoneum and bowel: A few diverticula are seen in the colon without signs of acute diverticulitis. Small bowel loops are normal in caliber and wall thickness. No free fluid or air. Nodes and vessels: An oval fluid attenuation lesion is seen in the region of the gastrohepatic ligament just superior to the pancreas measuring 3.1 x 2.2 cm (62/2), which has mildly increased in size when compared to the CT from 05/13/2020 when it measured 2.6 x 1.9 cm. No retroperitoneal or mesenteric adenopathy by size criteria. Aorta and inferior vena cava are normal in size. Miscellaneous: No ventral hernias. Mild soft tissue anasarca. PELVIS: Genitourinary: Bladder wall thickness is normal. Miscellaneous: No inguinal hernias or adenopathy. Bones: No suspicious bony lesions. Multiple vertebral body compression fractures are seen throughout the included spine, which do not appear significantly changed when compared to the CT from 05/13/2020. Cervical spinal fusion hardware is partially imaged. Multiple healed left posterior rib fractures are noted. Postsurgical changes from right total hip arthroplasty and left shoulder arthroplasty. IMPRESSION: 1. Signs of volume overload including small bilateral pleural effusions, mild pulmonary interstitial edema, and soft tissue anasarca. 2. Stable postsurgical changes from prior liver transplant. 3. Nonspecific 3.1 cm cystic lesion along the superior pancreatic body has mildly increased in size when compared to the CT from 05/13/2020, but has been present dating back to at least 11/09/2014 and is most likely benign. 4. Colonic diverticulosis. 5. Numerous chronic vertebral compression fractures do not appear significantly changed. There is no significant discrepancy when compared to the overnight preliminary report. Dictated by: Hermann Montalvo M.D. on 01/19/2022 at 8:04 Approved by: Hermann Montalvo M.D. on 01/19/2022 at 8:28
[2022-01-19] MEDS: ONDANSETRON 4 MG/2 ML INJ IV (01:53)
[2022-01-19] MEDS: HYDROMORPHONE 1 MG INJ IV (01:53)
[2022-01-19 02:41] VITALS: BP 203/107; PULSE 66; RESP 12; RESP 18; O2SAT 96; O2SAT 98
[2022-01-19 03:00] VITALS: PULSE 65; RESP 10; O2SAT 96
[2022-01-19 03:01] VITALS: BP 192/98; PULSE 65; RESP 14; O2SAT 96
[2022-01-19 03:05] LABS: Bacteria Urine None Seen; RBC Urine 10-30/HPF (0-5/HPF); WBC Urine None Seen (0-5/HPF)
== END 2022-01-19 05:50 | disposition home or self-care (01) ==
PROVIDERS: Emergency Provider Emergency Medicine; Family Provider Internal Medicine; PCP Internal Medicine
DX: U07.1 COVID-19 (principal); I10 Essential (primary) hypertension; R10.9 Unspecified abdominal pain
CPT/HCPCS: 36415; 71046; 71250; 74176; 80053; 81003; 81015; 82550; 82553; 83690; 83735; 83880; 84484; 85025; 86140; 87040; 87086; 93005; 93010; 96374; 96375; 99284; J1100; J1170; J2405

== ENCOUNTER 2022-02-01 11:01 | Inpatient (IN) | payer OTHER, MEDICAID, SELFPAY ==
[2021-06-30 17:55] VITALS: BMI 30.1
[2022-02-01 11:06] VITALS: BP 105/74; PULSE 69; RESP 18; TEMP 36.6; O2SAT 100; BMI 35.9
[2022-02-01 11:48] LABS: COVID19 -Nasal RAPID POSITIVE (Negative)
--- NOTE | 2022-02-01 12:19 | DI.RAD.S_ITS ---
PROCEDURE: XR CHEST 2V INDICATIONS: covid+, hx liver tx, chf exacerbation? TECHNIQUE: 2 views of the chest were acquired. COMPARISON: [facility], CT, CT CHEST ABD PEL WO CON, 01/19/2022, 1:48. [facility], CR, XR CHEST 2V, 01/18/2022, 22:54. [facility], CR, XR CHEST 1V, 01/17/2022, 11:28. FINDINGS: Surgical changes and devices: Left shoulder arthroplasty. ACDF. Clips in the upper abdomen. Lungs and pleura: Prominent pulmonary markings with a central predominance. Possible trace pleural effusion seen on the lateral projection. Not confirmed on the frontal projection. No pneumothorax. Mediastinum: Mediastinal contours are unchanged. Heart size is prominent. Bones and chest wall: No suspicious bony abnormalities. Soft tissues appear unremarkable. IMPRESSION: Mild fluid overload/CHF suspected. Possible trace pleural effusion. Dictated by: Aj Doyle M.D. on 02/01/2022 at 13:36 Approved by: Aj Doyle M.D. on 02/01/2022 at 13:38
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
[2022-02-01 12:36] LABS: Add Manual Diff / Slide Review NO; Basophils Absolute Auto 100 /uL (0-100); Basophils Percent Auto 1.7 % (0-2); Eosinophils Absolute Auto 100 /uL (0-450); Eosinophils Percent Auto 1.9 % (2-4); Hematocrit 27.3 % (41-53); Hemoglobin 8.9 g/dL (13.5-17.5); Lymphocytes Absolute Auto 2000 /uL (1100-4500); Lymphocytes Percent Auto 36.2 % (25-40); Mean Corpuscular HGB Conc 32.5 % (30-36); Mean Corpuscular Hemoglobin 31.6 PG (26-34); Mean Corpuscular Volume 97.3 fL (80-100); Monocytes Absolute Auto 400 /uL (0-900); Monocytes Percent Auto 7.3 % (3-14); Neutrophils Absolute Auto 2900 /uL (1500-7000); Neutrophils Percent Auto 52.9 % (50-75); Platelet Count 146 X10^3/uL (150-400); Red Blood Cell Count 2.81 X10^6/uL (4.5-5.9); White Blood Cell Count 5.4 X10^3/uL (4.5-11.0)
[2022-02-01 12:46] LABS: Alanine Aminotransferase 20 IU/L (<50); Albumin 2.4 g/dL (3.5-5.0); Albumin Globulin Ratio 0.8 (1.0-2.8); Alkaline Phosphatase 283 U/L (38-126); Aspartate Aminotransferase 51 IU/L (17-59); Bilirubin Unconjugated 0.5 mg/dL (0.0-1.1); Globulin 3.2 g/dL (1.7-4.1); HEMOLYSIS < 15 (0-50); Total Protein 5.6 g/dL (6.3-8.2)
[2022-02-01 12:47] LABS: BUN Creatinine Ratio 17.8 (6-22); Blood Urea Nitrogen 76 mg/dL (9-20); Calcium 8.5 mg/dL (8.4-10.2); Carbon Dioxide 20 mmol/L (22-32); Chloride 109 mmol/L (98-107); Creatine Kinase 53 U/L (55-170); Estimated Glomerular Filt Rate 15 mL/min (>60); Glucose 147 mg/dL (70-100); HEMOLYSIS < 15 (0-50); Magnesium 1.7 mg/dL (1.6-2.3); Phosphorous 4.1 mg/dL (2.5-4.5); Potassium 4.5 mmol/L (3.4-5.1); Sodium 137 mmol/L (137-145)
[2022-02-01 12:51] LABS: D Dimer 4375 ng/mL (<230)
[2022-02-01 12:55] LABS: NT-proBNP (BNP-Adult 18+) 24700 pg/mL (<125)
[2022-02-01 13:00] LABS: Troponin I 0.024 ng/mL (0.01-0.034)
[2022-02-01 13:38] LABS: Lactate (Lactic Acid) 1.6 mmol/L (0.7-2.1)
[2022-02-01 13:42] LABS: C-Reactive Protein Quant 2.1 mg/dL (<1.0)
[2022-02-01] MEDS: FUROSEMIDE 100 MG/10 ML VIAL 80 MG IV ×2 (14:15→19:48)
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
[2022-02-01] MEDS: HYDROMORPHONE 0.5 MG INJ IV ×2 (15:05→17:15)
[2022-02-01 16:14] VITALS: BP 212/108; PULSE 66; RESP 18; O2SAT 99
[2022-02-01 17:07] VITALS: BP 166/95; PULSE 86; RESP 16
[2022-02-01 17:43] VITALS: BMI 35.9
--- NOTE | 2022-02-01 17:48 | DI.ECHO.S_ITS ---
[facility] +---------+ : : [address] [place] : : : : [id number] : : : : Phone: [phone]+ Echocardiogram Report + + :Name: BERNICE GLYNN Study Date: 02/02/2022 Height: 66 in : :[facility] ReadingLocation: Weight: 223 lb : : Gender: Male BSA: 2.1 m2 : :: 1965 Age: 56 yrs BP: 166/95 mmHg: :Reason For Study: CONGESTIVE HEART FAILURE : :Ordering Physician: ELDON, : :GUALBERTO Performed By: Pamela Finn : :Referring: GUALBERTO COLÓN : + + Interpretation Summary The left ventricle is normal in size. There is mild concentric left ventricular hypertrophy. The left ventricle is hyperdynamic. Left ventricular ejection fraction is estimated to be 70 +/- 5%. Previously 55 to 60%. No significant LV outflow tract obstruction. The right ventricle is normal size. The right ventricular systolic function is normal. There is moderate mitral regurgitation. Compared to the prior echo study, there has been an increase in the severity of mitral regurgitation. There is mild tricuspid regurgitation. The right ventricular systolic pressure is estimated to be at least 35 mmHg based on an estimated right atrial pressure of 8 mm Hg. Compared to the prior echo exam, there has been no change in TR severity. Compared to the prior echo exam, there has been an increase in the severity of pulmonary hypertension. Procedure: A two-dimensional transthoracic echocardiogram with color flow and Doppler was performed. The study quality was technically adequate. Comparison is made with the echocardiogram of 11/26/2019. The patient was in sinus rhythm with heart rates between 69-70 bpm during the exam. Left Ventricle: The left ventricle is normal in size. There is mild concentric left ventricular hypertrophy. There is no thrombus. The left ventricle is hyperdynamic. Left ventricular ejection fraction is estimated to be 70 +/- 5%. There are no focal wall motion abnormalities. MV E/A: 1.2 Med Peak E' Luis: 5.4 cm/sec E/E' med: 11.2. Right Ventricle: The right ventricle is normal size. The right ventricular systolic function is normal. Atria: The left atrium is severely dilated. The left atrium has remained unchanged in size since the prior echo exam. The right atrium is mildly dilated. There is no Doppler evidence for an interatrial shunt. Mitral Valve: There is moderate to severe mitral annular calcification. The mitral valve leaflets are mildly calcified. There is moderate mitral regurgitation. Compared to the prior echo study, there has been an increase in the severity of mitral regurgitation. Aortic Valve: The aortic valve is grossly normal. The aortic valve is trileaflet. The aortic valve is slightly calcified. There is no aortic valve stenosis. No aortic regurgitation is present. Tricuspid Valve: The tricuspid valve is normal in structure and function. There is mild tricuspid regurgitation. The right ventricular systolic pressure is estimated to be at least 35 mmHg based on an estimated right atrial pressure of 8 mm Hg. Compared to the prior echo exam, there has been no change in TR severity. Compared to the prior echo exam, there has been an increase in the severity of pulmonary hypertension. Pulmonic Valve: The pulmonic valve is not well visualized. There is no pulmonic valvular regurgitation. Great Vessels: The aortic root is normal size. The dimensions of the ascending aorta are normal. The IVC is dilated (diameter is greater than 2.1 cm) yet it collapses greater than 50% with a sniff. This suggests a right atrial pressure of 8 mm Hg. Pericardium/ Pleura There is no pericardial effusion. There is no pleural effusion. MMode/2D Measurements & Calculations LVIDd: 5.6 cm LVOT diam: 2.0 cm LVIDs: 3.4 cm Ao root diam: 3.4 cm FS: 38.8 % asc Aorta Diam: 3.6 cm IVSd: 1.1 cm Ao Arch Diam (Prox Trans): 2.9 cm LVPWd: 1.3 cm LV cook. diameter/BSA (cm/m^2): 2.7 LV sys. diameter/BSA (cm/m^2): 1.6 LA A2 area: 34.3 cm2 RA long axis: 6.4 cm LA A4 area: 32.9 cm2 RA area: 23.5 cm2 LA length (vol): 7.4 cm RA vol: 72.9 ml LA vol: 129.4 ml RA : 34.8 ml/m2 LA vol index: 61.8 ml/m2 IVC diam: 2.7 cm RVD1 (basal): 4.0 cm RVD2 (mid): 3.6 cm TAPSE: 1.6 cm Doppler Measurements & Calculations Ao V2 max: 157.3 cm/sec LVOT Max Luis: 106.3 cm/sec Ao V2 mean: 104.4 cm/sec LV V1 max P.5 mmHg Ao max P.9 mmHg LV V1 VTI: 24.2 cm Ao mean P.0 mmHg NORA(I,D): 2.3 cm2 Ao V2 VTI: 33.0 cm NORA(V,D): 2.1 cm2 sev ratio: 0.73 NORA indexed to BSA (cm^2/m^2): 1.1 MV E max luis: 60.2 cm/sec TR max luis: 260.8 cm/sec MV A max luis: 49.2 cm/sec TR max P.2 mmHg MV E/A: 1.2 PA V2 max: 112.7 cm/sec Med Peak E' Luis: 5.4 cm/sec PA V2 mean: 72.1 cm/sec E/E' med: 11.2 PA mean P.4 mmHg Lat Peak E' Luis: 8.5 cm/sec PA pr(Accel): 37.9 mmHg E/E' lat: 7.1 E/e' average: 9.1 MV dec time: 0.20 sec SV(LVOT): 74.5 ml Reading Physician:01:26 PM
[2022-02-01 18:00] VITALS: BP 195/113; PULSE 64; RESP 18; TEMP 36.3; O2SAT 98
--- NOTE | 2022-02-01 18:44 | DI.US.S_ITS ---
PROCEDURE: US RENAL COMPLETE INDICATIONS: karan TECHNIQUE: Real-time scanning was performed of the kidneys and bladder, with image documentation. COMPARISON: None. FINDINGS: Kidneys: Kidneys are bilaterally echogenic. Right kidney measures 9.8 cm long; left kidney measures 11.9 cm long. Right renal cortical thickness is 1.1 cm; left renal cortical thickness is 1.3 cm. Renal cortical echotexture is normal. No hydronephrosis or nephrolithiasis. No suspicious solid mass lesions. Bladder: Pre-void bladder volume is 245 mL. Post-void residual is 53 mL. Pre-void images demonstrate no intraluminal masses or stones. On pre-void images, bilateral ureteral jets are noted with color Doppler interrogation. (Of note, ureteral jets may not be detectable in up to 25% of cases due to insufficient differences in specific gravity between ureteral and bladder urine). Miscellaneous: No free pelvic fluid. IMPRESSION: Echogenic kidneys consistent with medical renal disease. No obstruction. Dictated by: Abbi Ordonez M.D. on 02/01/2022 at 19:47 Approved by: Abbi Ordonez M.D. on 02/01/2022 at 19:50
[2022-02-01 19:00] VITALS: O2SAT 97
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
[2022-02-01] MEDS: HYDROMORPHONE 4 MG TABLET PO (19:48)
[2022-02-01] MEDS: LACTULOSE 20 GM/30 ML SOLUTION PO (21:33)
[2022-02-01] MEDS: HEPARIN 5,000 UNIT/ML VIAL 5000 UNIT SUBCUT (21:33)
[2022-02-01] MEDS: TAMSULOSIN 0.4 MG CAPSULE PO (21:35)
[2022-02-01] MEDS: MYCOPHENOLATE MOFETIL 500 MG TABLET PO (21:35)
[2022-02-01] MEDS: CYCLOSPORINE, MODIFIED 25 MG CAPSULE PO (21:35)
[2022-02-01] MEDS: ASPIRIN EC 81 MG TABLET PO (21:35)
[2022-02-01] MEDS: ONDANSETRON 4 MG/2 ML INJ IV (21:36)
[2022-02-01] MEDS: ACETAMINOPHEN 325 MG TABLET 650 MG PO (23:19)
[2022-02-01 23:49] VITALS: BP 172/103; PULSE 68; RESP 17; TEMP 36.3; O2SAT 98
[2022-02-02] VITALS (7 sets, daily range): BP systolic 145–169; BP diastolic 79–95; PULSE 64–71; RESP 18; TEMP 36.1–36.3; O2SAT 95–98
[2022-02-02] MEDS: HYDROMORPHONE 4 MG TABLET PO ×2 (01:41→09:31)
[2022-02-02] MEDS: FUROSEMIDE 100 MG/10 ML VIAL 80 MG IV ×2 (05:14→17:24)
[2022-02-02 05:59] LABS: Sodium Urine Random 104 mmol/L (30-90)
--- NOTE | 2022-02-02 08:21 | DIET.CONS2 ---
Dietary Inpatient Consultation Note Admission Date: 02/01/2022 13:49 Changed pts diet order to Renal- 2g sodium and limited protein secondary to eGFR 15 and Cr 4.28. Phos and potassium WNL. Diet: 02/01/22 Breakfast Low Sodium Diet (2gm) Diet Modifications: renal diet 02/02/22 Lunch Renal Diet Diet Modifications: potassium and phosphorus okay Safety Tray needed?: No Renal Specifics: 2gm Sodium Restriction Low Protein Electronically Signed by: Chica Jin 02/02/22 08:21 Clinical Dietitian [address] [address]
[2022-02-02] MEDS: LIDOCAINE PATCH 1 EACH ADH..PATCH TOP (09:29)
[2022-02-02] MEDS: HEPARIN 5,000 UNIT/ML VIAL 5000 UNIT SUBCUT ×2 (09:30→21:29)
[2022-02-02] MEDS: MYCOPHENOLATE MOFETIL 500 MG TABLET PO ×2 (09:30→21:29)
[2022-02-02] MEDS: METOPROLOL ER 25 MG TABLET PO (09:30)
[2022-02-02] MEDS: ONDANSETRON 4 MG/2 ML INJ IV ×2 (09:30→17:29)
[2022-02-02] MEDS: ASPIRIN EC 81 MG TABLET PO ×2 (09:30→21:29)
[2022-02-02] MEDS: CYCLOSPORINE, MODIFIED 25 MG CAPSULE PO ×2 (09:30→21:29)
[2022-02-02] MEDS: DULOXETINE 20 MG CAPSULE PO (09:31)
[2022-02-02 12:01] LABS: Hematocrit 27.5 % (41-53); Hemoglobin 9.2 g/dL (13.5-17.5); Mean Corpuscular HGB Conc 33.3 % (30-36); Mean Corpuscular Hemoglobin 32.3 PG (26-34); Platelet Count 149 X10^3/uL (150-400); Red Blood Cell Count 2.83 X10^6/uL (4.5-5.9); Red Cell Distribution Width 20.2 % (11.6-14.8); White Blood Cell Count 5.7 X10^3/uL (4.5-11.0)
[2022-02-02 12:03] LABS: Add Manual Diff / Slide Review YES
[2022-02-02 12:11] LABS: BUN Creatinine Ratio 17.3 (6-22); Blood Urea Nitrogen 74 mg/dL (9-20); Calcium 8.6 mg/dL (8.4-10.2); Carbon Dioxide 23 mmol/L (22-32); Chloride 110 mmol/L (98-107); Estimated Glomerular Filt Rate 15 mL/min (>60); Glucose 114 mg/dL (70-100); HEMOLYSIS < 15 (0-50); Magnesium 1.7 mg/dL (1.6-2.3); Potassium 4.6 mmol/L (3.4-5.1); Sodium 137 mmol/L (137-145)
[2022-02-02 12:23] LABS: Neutrophils Absolute Manual 2337 /uL (3000-5900); Nucleated Red Blood Cells 1 #/Diff; Total Cells Counted 100
[2022-02-02 12:24] LABS: Anisocytosis 2+; Target Cells 2+
[2022-02-02] MEDS: LACTULOSE 20 GM/30 ML SOLUTION PO (13:03)
[2022-02-02 13:43] LABS: pH ABG 7.28 (7.35-7.45)
[2022-02-02 13:44] LABS: HCO3 ABG 22 mmol/L (22-26); Oxygen Saturation ABG 94 % (95-100); PO2 ABG 78 mmHg (80-100); TCO2 ABG 24 mmol/L (21-31)
[2022-02-02 13:45] LABS: Fractionated Inspired Oxygen 21
[2022-02-02 14:08] LABS: Ammonia (NH3) 192 umol/L (9-30)
[2022-02-02] MEDS: LACTULOSE 20 GM/30 ML SOLUTION 30 GM PO (16:08)
[2022-02-02 16:31] LABS: Bilirubin Urine UA NEGATIVE (NEGATIVE); Color Urine UA YELLOW; Glucose Urine UA NEGATIVE (Negative); Ketones Urine UA NEGATIVE (NEGATIVE); Leukocyte Esterase Urine UA NEGATIVE (NEGATIVE); Nitrite Urine UA NEGATIVE (Negative); Occult Blood Urine UA 3+ (Negative); Protein Urine UA 2+ (Negative); Specific Gravity Urine UA 1.015 (1.000-1.035); Urobilinogen Urine UA 0.2 E.U./dL (0.2)
[2022-02-02 16:34] LABS: Appearance Urine UA Slightly Cloudy
[2022-02-02 16:41] LABS: Amorphous Sediment Urine 1+; Bacteria Urine None Seen; Culture Indicated Urine Cult Not Indicated; Hyaline Casts Urine 1-5/LPF; Mucus Urine 1+ (Negative); RBC Urine 5-10/HPF (0-5/HPF); Squamous Epithelial Cell Urine 1-5 /HPF (0-5/HPF); WBC Urine 1-5/HPF (0-5/HPF)
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
--- NOTE | 2022-02-02 17:52 | PC.NURSE ---
this afternoon patient had emesis of 50cc, administered zofran. head semi castillo d/t risk for aspiration. no bowel movement yet.
[2022-02-02] MEDS: TAMSULOSIN 0.4 MG CAPSULE PO (21:29)
--- NOTE | 2022-02-02 22:16 | PC.NURSE ---
Addendum entered by Dominik Sands R.N. 02/03/22 02:34: Continuing to decrease in mentation. Confused and impulsive. IV access lost, PICC ordered, but not expected until after 0700. Original Note: Patient refusing lactulose and refusing bipap. Exhibiting decrease in mentation. Hospitalist made aware.
[2022-02-03] VITALS (57 sets, daily range): BP systolic 103–254; BP diastolic 61–137; PULSE 51–100; RESP 8–29; TEMP 36.2–37.1; O2SAT 40–100
[2022-02-03] MEDS: ONDANSETRON 4 MG ODT SL (02:17)
--- NOTE | 2022-02-03 03:44 | DI.RAD.S_ITS ---
PROCEDURE: XR CHEST 1V INDICATIONS: difficulty breathing TECHNIQUE: One view of the chest was acquired. COMPARISON: None. FINDINGS: Surgical changes and devices: Surgical clips in the right upper abdomen. Lungs and pleura: Lungs are clear. No pleural effusions or pneumothorax. Mediastinum: Mediastinal contours appear normal. Heart size is normal. Bones and chest wall: No suspicious bony lesions. Overlying soft tissues appear unremarkable. IMPRESSION: No acute cardiopulmonary disease process. Dictated by: Josefina Riddle MD, PhD on 02/03/2022 at 8:30 Approved by: Josefina Riddle MD, PhD on 02/03/2022 at 8:31
[2022-02-03 04:21] LABS: Fractionated Inspired Oxygen 21; HCO3 ABG 19 mmol/L (22-26); Oxygen Saturation ABG 81 % (95-100); PCO2 ABG 31.7 mmHg (35-45); TCO2 ABG 20 mmol/L (21-31); pH ABG 7.38 (7.35-7.45)
[2022-02-03 04:22] LABS: PO2 ABG 46 mmHg (80-100)
[2022-02-03] MEDS: HALOPERIDOL 5 MG/ML VIAL 2 MG IM (04:27)
--- NOTE | 2022-02-03 04:37 | DI.RAD.S_ITS ---
PROCEDURE: XR CHEST FOR PICC 1V INDICATIONS: Picc, ET tube placement TECHNIQUE: One view of the chest was acquired. COMPARISON: [facility], CR, XR CHEST 1V, 02/03/2022, 6:20. [facility], CR, XR CHEST 1V, 02/03/2022, 3:46. FINDINGS: Surgical changes and devices: Tip of the endotracheal tube terminates approximately 2.9 cm above the valorie. An NG/OG tube is in place with the tip projecting over the stomach. Tip of the right PICC projects over the confluence of the subclavian and internal jugular veins. Left shoulder arthroplasty. Lungs and pleura: Streaky bibasilar opacities are present. No large pleural effusion. No pneumothorax. Mediastinum: Cardiac silhouette is at the upper limits of normal in size. Mediastinal and hilar contours appear similar to before. Bones and chest wall: No suspicious bony lesions. Overlying soft tissues appear unremarkable. IMPRESSION: 1. Tip of the right PICC projects over the confluence of the subclavian and internal jugular veins. 2. Tip of the endotracheal tube terminates approximately 2.9 cm above the valorie. 3. Mild bibasilar pulmonary opacities, likely atelectasis. Dictated by: Hermann Fung M.D. on 02/03/2022 at 8:37 Approved by: Hermann Fung M.D. on 02/03/2022 at 8:50
--- NOTE | 2022-02-03 04:40 | PM.EVENT ---
Event Note Date Patient Seen: 02/03/22 Time Patient Seen: 03:45 Event Note (Rapid Response, Code, or fall): Patient seen and examined, reported to become apneac for long periods. He is arousable and can converse back, but was very nauseaus and eventually had a bilious vomit. Patient has generalized anasarca, no murmers appreciated, normal lung sounds, very jaundiced and lethargic. Earlier today, his ammonia was in the 190s and had been given lactulose, but was no refusing. Nursing lost his IV access, PICC off-hours nurse contacted and are not available until after 6 or [address] case [address] Dr[address] Posey. Though he is oxygenating well, he is very altered and lethargic, ABG indicates metabolic acidosis. Tele-purse seining hand recommended transfer as patient may be having cyclosporine toxicity affecting his renal function. Cyclosporine level was sent out on 02/02 and is still pending. With his rising creatinine, he may require urgent dialysis. Anesthesia has been called to place IV access and to intubate to preserve his airway and administer lactulose enemas to reduce his ammonia levels. Critical care time: 45 minutes.
--- NOTE | 2022-02-03 05:31 | DI.RAD.S_ITS ---
PROCEDURE: XR CHEST 1V INDICATIONS: Verifying ET tube placement TECHNIQUE: One view of the chest was acquired. COMPARISON: None. FINDINGS: Surgical changes and devices: Cervical spine fixation hardware. Left shoulder arthroplasty. ET tube projects 2.3 centimeters superior to the valorie. Lungs and pleura: Patchy opacity in the left lung base. No pleural effusions or pneumothorax. Mediastinum: Mediastinal contours appear normal. Heart size is normal. Bones and chest wall: No suspicious bony lesions. Overlying soft tissues appear unremarkable. IMPRESSION: ET tube 2.3 centimeters superior to the valorie. Dictated by: Josefina Riddle MD, PhD on 02/03/2022 at 8:33 Approved by: oJsefina Riddle MD, PhD on 02/03/2022 at 8:35
[2022-02-03] MEDS: propofoL 1,000 MG/100 ML VIAL 3.035 MG IV (05:45)
--- NOTE | 2022-02-03 05:58 | PM.PROC.1 ---
Procedures Date/Time Date of procedure: 02/03/22 Time of procedure: 05:00 Intubation Time out performed: Yes Sedative: other (120mg propofol, 60mg 2% lidocaine) Paralytic: succinylcholine (40mg) Laryngoscope: other (optical stylet) ET tube size: 7.5 ET tube uncuffed: No Tube secured depth (cm): 24 Tube secured location: teeth Tube placement confirmation: visualized tube passing through cords, equal breath sounds bilaterally, no breath sounds over epigastrium and confirmation by capnometry Patient tolerated procedure: well and no complications Intubation complications: none Additional comments: CXR ordered
[2022-02-03] MEDS: fentaNYL 1,000 MCG in DEXTROSE 5% IN WATER 230 ML 17.701 MCG IV (06:08)
[2022-02-03] MEDS: fentaNYL 250 MCG/5 ML INJ (06:12)
[2022-02-03] MEDS: FUROSEMIDE 100 MG/10 ML VIAL 80 MG IV ×2 (06:32→10:31)
--- NOTE | 2022-02-03 06:39 | PC.NURSE ---
0500- Patient transferred to room 231. ABG poor and patient unable to follow commands or cooperate with care. Patient is full code. Moved to facilitate RSI and supportive care. Patient in Covid isolation per protocol. Tele Intensive Care consulted. 0528- Patient intubated without any problems. A 20g thumb IV placed by Dr Bone. Propofol gtt, Fentanyl gtt, NS running in the thumb. 0600- CXR done post intubation. Bradley catheter placed per order.
--- NOTE | 2022-02-03 06:41 | PC.NURSE ---
0430 - Patient continuing to grow increasingly confused, impulsive, and decreasing in mentation. Continuing to refuse most care and medications. Episodes of lethargy followed by strong desire to get out of bed while growing agitated. During one episode of lethargy, observed a stop in respirations for 15-20 seconds at a time followed by 3 gasping breaths. Pattern repeated itself several times. Hospitalist Kris alerted. Chest X-ray ordered, ABG's ordered, and bander and cellophaner machine consulted resulting in the eventual transfer to ICU and subsequent intubation.
[2022-02-03 06:45] LABS: Fractionated Inspired Oxygen 50; HCO3 ABG 21 mmol/L (22-26); Oxygen Saturation ABG 99 % (95-100); PCO2 ABG 48.1 mmHg (35-45); PO2 ABG 146 mmHg (80-100); TCO2 ABG 22 mmol/L (21-31); pH ABG 7.25 (7.35-7.45)
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
--- NOTE | 2022-02-03 07:37 | P.TELICUCN_ITS ---
History of Present Illness Consult details Chief complaint: Needs liver levels checked- swelling Narrative: Mr. Wilks is a 56M with PMH hep C and HCC, s/p liver transplant, CKD stage 4, presented with shortness of breath and anasarca, found to have pul edema, SANDY & hepatic encephalopathy, overnight his encephalopathy worsened, causing hepatic hypercapnic resp failure, didn?t tolerated BIPAP, so he was transferred to ICU and placed on mechanical ventilation. Assessment: Acute hypercapnic ?and hypoxic resp failure 2/2 Co2 retention / poor inspiratory drive ( hepatic encephalopathy) & pul edema Hepatic encephalopathy ( H/o of liver transplant) Pul edema/ generalized anasarca 2/2 renal failure SANDY on CKD stage 4, could be ATN/ CNI toxicity H/o of COVID infection ( 01/17 & 02/01) Rec: ?Sedation, propfol and fenatly, RASS -1 goal Vent sitting adjusted to 22/380 ( 6 ml/kg)/5/40%, pending ABG and CXR IV Lasix bolus 80 mg, drip 15 mg/hr & metolazone 5 mg bid, adjust Lasix to a goa l of 150-200 ml of UOP/ hr IV albumin 25 gm Q6H x 48 hrs Continue to hold Cyclosporine, pending level, resume Cellcept Strat Lactulose 30 mg QID (Goal 3-4 BM), Rifaximine 550 mg bid Check liver function, CMP and coags Chronic pain & opiate dependence , hold PO, currently on fentanyl drip IV Pepcid & SC heparin Code full Pt may need CERTIFIED PERSONAL TRAINER soon (recommend transfer to a higher level of care) CCT 60 min PFSH Medical History Cirrhosis of liver CKD (chronic kidney disease) Compression fracture Depression Former smoker GERD (gastroesophageal reflux disease) Gout Hepatitis C (~2011) History of vertebral compression fracture Hypertension Immunosuppression Liver cancer Medical marijuana use GUILLE (obstructive sleep apnea) Osteoporosis PAC (premature atrial contraction) Pain management contract agreement Paroxysmal atrial fibrillation PVC (premature ventricular contraction) Thrombocytopenia Surgical History H/O right wrist surgery History of biliary duct stent placement (01/2013) History of open reduction and internal fixation (ORIF) procedure (09/22/20) History of removal of retained hardware (01/25/21) History of right hip replacement Hx of appendectomy (~1979) Hx of cholecystectomy (~2003) Hx of elbow surgery (~2003) Hx of elbow surgery (~2007) Hx of fusion of cervical spine Hx of hernia repair Hx of shoulder surgery (~2012) Hx of tonsillectomy (~1969) Liver transplant recipient (11/24/11) Presence of left artificial elbow joint Family History Mother Renal failure Father Diabetes mellitus Congestive heart failure Social History household members: none Smoking Status: Former smoker alcohol intake: current Current Medications Current Medications Medications: Home Medications allopurinol 100 mg tablet 100 mg PO DAILY 01/14/20 [History Confirmed 02/01/22] cyclosporine modified 25 mg capsule 25 mg PO BID 01/14/20 [History Confirmed 07/01/21] duloxetine 20 mg capsule,delayed release (Cymbalta) 20 mg PO DAILY 01/14/20 [History Confirmed 02/01/22] fentanyl 25 mcg/hr transdermal patch (Duragesic) 25 mcg topical Q72H 01/14/20 [History Confirmed 02/01/22] gabapentin 300 mg capsule 300 mg PO BID 01/14/20 [History Confirmed 07/01/21] hydroxyzine pamoate 25 mg capsule (Vistaril) 25 mg PO BEDTIME PRN Itching 01/14/20 [History Confirmed 07/01/21] lidocaine 5 % topical patch (Lidoderm) 1 patch topical DAILY 01/14/20 [History Confirmed 07/04/21] mycophenolate mofetil 500 mg tablet (CellCept) 500 mg PO BID 01/14/20 [History Confirmed 07/01/21] pyridoxine (vitamin B6) 100 mg tablet 100 mg PO DAILY 01/14/20 [History Co nfirmed 05/09/21] quetiapine 25 mg tablet (Seroquel) 25 mg PO BEDTIME 01/14/20 [History Confirmed 07/01/21] ursodiol 300 mg capsule 300 mg PO BID 01/14/20 [History Confirmed 07/01/21] vitamin B complex-vitamin C-folic acid 0.8 mg tablet (Kellie-Ramila) 1 tab PO DAILY 01/14/20 [History Confirmed 05/09/21] ondansetron 4 mg disintegrating tablet 4 mg PO TID-QID PRN nausea and vomiting #10 tabs 05/14/20 [Rx Confirmed 05/09/21] pantoprazole 40 mg tablet,delayed release (Protonix) 40 mg PO DAILY #30 tabs 05/14/20 [Rx Confirmed 07/01/21] rifaximin 550 mg tablet (Xifaxan) 550 mg PO BID 09/20/20 [History Confirmed 07/01/21] hydromorphone 4 mg tablet 4 mg PO Q6H PRN pain #30 tabs 09/24/20 [Rx Confirmed 07/01/21] naloxone 4 mg/actuation nasal spray (Narcan) 1 spray intranasal PER PKG DIR 30 days #1 ea 09/29/20 [Rx Confirmed 04/27/21] metoprolol succinate 25 mg tablet,extended release 24 hr 25 mg PO DAILY 01/25/21 [History Confirmed 07/01/21] tamsulosin 0.4 mg capsule 0.4 mg PO BEDTIME 04/27/21 [History Confirmed 07/01/21] aspirin 81 mg tablet,delayed release 81 mg PO BID #90 tabs 05/11/21 [Rx Confi rmed 07/01/21] oxycodone 10 mg tablet 10 mg PO Q3HR PRN Pain, Severe (7-10) #60 tabs 05/11/21 [Rx] lactulose 20 gram/30 mL oral solution 30 gm PO TID #11,000 mL 07/05/21 [Rx] diphenhydramine HCl 12.5 mg/5 mL oral liquid (Benadryl Allergy) 25 mg (10 mL) PO Q4-6H PRN nausea and vomiting #200 mL 07/06/21 [Rx] famotidine 20 mg tablet (Pepcid AC) 20 mg PO BEDTIME #120 tabs 07/06/21 [Rx Confirmed 02/01/22] losartan 25 mg tablet 25 mg PO DAILY #60 tabs 07/06/21 [Rx] nifedipine 30 mg tablet,extended release 24 hr 30 mg PO DAILY #60 tabs 07/06/21 [Rx] sucralfate 1 gram tablet 1 gm PO ACHS #240 tabs 07/06/21 [Rx] furosemide 40 mg tablet (Lasix) 40 mg PO DAILY #5 tabs 01/17/22 [Rx] lactulose 20 gram oral packet 20 g PO BID #1 ea 01/17/22 [Rx] Visit Medications (administered) Generic Name Dose Route Start Last Admin Trade Name Freq PRN Reason Stop Dose Admin Heparin Sodium (Porcine) 5,000 unit 02/01/22 21:00 02/02/22 21:29 Heparin 5,000 Unit/Ml Vial SUBCUT 5,000 unit BID JUNIOR Administration Hydromorphone HCl 4 mg 02/01/22 18:19 02/02/22 09:31 Hydromorphone 4 Mg Tablet PO 4 mg Q6HR PRN Administration Pain, Severe (7-10) Propofol 1,000 mg in 100 mls @ 3.035 mls/hr 02/03/22 05:30 02/03/22 06:00 Propofol IV 50 mcg/kg/min TITRATE JUNIOR 30.345 mls/hr Titration Protocol 5 MCG/KG/MIN Fentanyl 1,000 mcg/ Dextrose 250 mls @ 17.701 mls/hr 02/03/22 05:30 02/03/22 06:08 IV 0.7 mcg/kg/hr TITRATE JUNIOR 17.701 mls/hr Administration Protocol 0.7 MCG/KG/HR Lidocaine 1 each 02/02/22 09:00 02/02/22 09:29 Lidocaine Patch 1 Each Adh..Patch TOP 1 each DAILY JUNIOR Administration Ondansetron HCl 4 mg 02/01/22 17:48 02/02/22 17:29 Ondansetron 4 Mg/2 Ml Inj IV 4 mg Q8HR PRN Administration Nausea And Vomiting Ondansetron HCl 4 mg 02/03/22 02:13 02/03/22 02:17 Ondansetron 4 Mg Odt SL 4 mg Q4HR PRN Administration Nausea Exam Vital Signs (past 8 hours): - 02/03/22 00:00 02/03/22 05:30 02/03/22 06:00 Temperature 97.1 F L Pulse Rate 75 100 H 91 H Respiratory Rate 17 21 19 Blood Pressure 155/103 H 254/137 H 164/94 H Pulse Oximetry 96 100 100 Oxygen Flow Rate 0 Fraction of Inspired Oxygen 02/03/22 06:30 02/03/22 04:50 02/03/22 04:57 Temperature Pulse Rate 82 80 81 Respiratory Rate 22 9 L Blood Pressure 140/71 Pulse Oximetry 98 73 L 100 Oxygen Flow Rate Fraction of Inspired Oxygen 02/03/22 04:57 02/03/22 05:00 02/03/22 05:00 Temperature Pulse Rate 81 Respiratory Rate 8 L Blood Pressure 183/96 H 197/104 H Pulse Oximetry 100 Oxygen Flow Rate Fraction of Inspired Oxygen 02/03/22 05:19 02/03/22 05:19 02/03/22 05:30 Temperature Pulse Rate 85 100 H Respiratory Rate 9 L 21 Blood Pressure 217/109 H Pulse Oximetry 100 100 Oxygen Flow Rate Fraction of Inspired Oxygen 02/03/22 05:31 02/03/22 05:31 02/03/22 05:39 Temperature Pulse Rate 100 H 91 H Respiratory Rate 24 29 H Blood Pressure 254/137 H Pulse Oximetry 100 98 Oxygen Flow Rate Fraction of Inspired Oxygen 02/03/22 05:39 02/03/22 05:45 02/03/22 05:45 Temperature Pulse Rate 90 Respiratory Rate 22 Blood Pressure 190/95 H 187/98 H Pulse Oximetry 100 Oxygen Flow Rate Fraction of Inspired Oxygen 02/03/22 06:00 02/03/22 06:01 02/03/22 06:01 Temperature Pulse Rate 91 H 92 H Respiratory Rate 19 17 Blood Pressure 164/94 H Pulse Oximetry 100 100 Oxygen Flow Rate Fraction of Inspired Oxygen 02/03/22 06:16 02/03/22 06:16 02/03/22 06:30 Temperature Pulse Rate 91 H 82 Respiratory Rate 21 22 Blood Pressure 167/84 H Pulse Oximetry 90 L 100 Oxygen Flow Rate Fraction of Inspired Oxygen 02/03/22 06:31 02/03/22 06:31 02/03/22 06:45 Temperature Pulse Rate 86 71 Respiratory Rate 23 22 Blood Pressure 140/71 Pulse Oximetry 97 100 Oxygen Flow Rate Fraction of Inspired Oxygen 02/03/22 06:45 02/03/22 07:00 02/03/22 07:00 Temperature Pulse Rate 70 Respiratory Rate 22 Blood Pressure 119/61 118/63 Pulse Oximetry 99 Oxygen Flow Rate Fraction of Inspired Oxygen 02/03/22 07:16 02/03/22 07:16 02/03/22 07:09 Temperature Pulse Rate 78 Respiratory Rate 22 Blood Pressure 164/88 H Pulse Oximetry 95 Oxygen Flow Rate Fraction of Inspired Oxygen 40 Fraction of Inspired Oxygen 40 Oxygen Delivery Method Room Air Oxygen Flow Rate 0 Objective Labs Result Diagrams: 02/02/22 11:37 02/02/22 11:37 Labs: Laboratory Results - last 24 hr 02/02/22 02/02/22 02/02/22 11:37 11:37 13:33 WBC 5.7 RBC 2.83 L Hgb 9.2 L Hct 27.5 L MCV 97.0 MCH 32.3 MCHC 33.3 RDW 20.2 H Plt Count 149 L Neut % (Auto) Not Reportable Lymph % (Auto) Not Reportable Stanton % (Auto) Not Reportable Eos % (Auto) Not Reportable Baso % (Auto) Not Reportable Lymph # (Auto) Not Reportable Stanton # (Auto) Not Reportable Baso # (Auto) Not Reportable Total Counted 100 Seg Neutrophils % 40.0 Band Neutrophils % 1.0 L Lymphocytes % (Manual) 51.0 H Monocytes % (Manual) 7.0 Eosinophils % (Manual) 1.0 L Neutrophils # (Manual) 2337 L Nucleated RBCs 1 H RBC Morphology See below Anisocytosis 2+ H Target Cells 2+ H ABG pH 7.28 L* ABG pCO2 48.0 H ABG pO2 78 L ABG HCO3 22 ABG Total CO2 24 ABG O2 Saturation 94 L ABG Base Excess -4.0 L FiO2 21 Sodium 137 Potassium 4.6 Chloride 110 H Carbon Dioxide 23 BUN 74 H Creatinine 4.27 H Estimated GFR 15 L BUN/Creatinine Ratio 17.3 Glucose 114 H Calcium 8.6 Magnesium 1.7 Ammonia Urine Color Urine Appearance Urine pH Ur Specific Boswell Urine Protein Urine Glucose (UA) Urine Ketones Urine Occult Blood Urine Nitrate Urine Bilirubin Urine Urobilinogen Ur Leukocyte Esterase Urine RBC Urine WBC Ur Squamous Epith Cells Amorphous Sediment Urine Bacteria Hyaline Casts Urine Mucus Ur Culture Indicated? 02/02/22 02/02/22 02/03/22 13:50 16:23 03:56 WBC RBC Hgb Hct MCV MCH MCHC RDW Plt Count Neut % (Auto) Lymph % (Auto) Stanton % (Auto) Eos % (Auto) Baso % (Auto) Lymph # (Auto) Stanton # (Auto) Baso # (Auto) Total Counted Seg Neutrophils % Band Neutrophils % Lymphocytes % (Manual) Monocytes % (Manual) Eosinophils % (Manual) Neutrophils # (Manual) Nucleated RBCs RBC Morphology Anisocytosis Target Cells ABG pH 7.38 ABG pCO2 31.7 L ABG pO2 46 L* ABG HCO3 19 L ABG Total CO2 20 L ABG O2 Saturation 81 L* ABG Base Excess -6.0 L FiO2 21 Sodium Potassium Chloride Carbon Dioxide BUN Creatinine Estimated GFR BUN/Creatinine Ratio Glucose Calcium Magnesium Ammonia 192 H Urine Color Yellow Urine Appearance Slightly cloudy Urine pH 5.0 Ur Specific Boswell 1.015 Urine Protein 2+ H Urine Glucose (UA) Negative Urine Ketones Negative Urine Occult Blood 3+ H Urine Nitrate Negative Urine Bilirubin Negative Urine Urobilinogen 0.2 Ur Leukocyte Esterase Negative Urine RBC 5-10/hpf H Urine WBC 1-5/hpf Ur Squamous Epith Cells 1-5 /hpf Amorphous Sediment 1+ Urine Bacteria None seen Hyaline Casts 1-5/lpf Urine Mucus 1+ H Ur Culture Indicated? Cult not indicated 02/03/22 06:09 WBC RBC Hgb Hct MCV MCH MCHC RDW Plt Count Neut % (Auto) Lymph % (Auto) Stanton % (Auto) Eos % (Auto) Baso % (Auto) Lymph # (Auto) Stanton # (Auto) Baso # (Auto) Total Counted Seg Neutrophils % Band Neutrophils % Lymphocytes % (Manual) Monocytes % (Manual) Eosinophils % (Manual) Neutrophils # (Manual) Nucleated RBCs RBC Morphology Anisocytosis Target Cells ABG pH 7.25 L* ABG pCO2 48.1 H ABG pO2 146 H ABG HCO3 21 L ABG Total CO2 22 ABG O2 Saturation 99 ABG Base Excess -6.0 L FiO2 50 Sodium Potassium Chloride Carbon Dioxide BUN Creatinine Estimated GFR BUN/Creatinine Ratio Glucose Calcium Magnesium Ammonia Urine Color Urine Appearance Urine pH Ur Specific Boswell Urine Protein Urine Glucose (UA) Urine Ketones Urine Occult Blood Urine Nitrate Urine Bilirubin Urine Urobilinogen Ur Leukocyte Esterase Urine RBC Urine WBC Ur Squamous Epith Cells Amorphous Sediment Urine Bacteria Hyaline Casts Urine Mucus Ur Culture Indicated? Assessment & Plan Time Spent With Patient Critical Care time: I spent a total of [] minutes of critical care time on this patient's care today; this time is exclusive of procedural time.
[2022-02-03] MEDS: propofoL 1,000 MG/100 ML VIAL 30.345 MG IV (08:06)
[2022-02-03 08:37] LABS: INR 1.1 (0.9-1.3); Prothrombin Time 11.7 SECONDS (10.1-12.7)
[2022-02-03 08:44] LABS: Alanine Aminotransferase 17 IU/L (<50); Albumin Globulin Ratio 0.7 (1.0-2.8); Alkaline Phosphatase 248 U/L (38-126); Aspartate Aminotransferase 34 IU/L (17-59); Bilirubin Total 0.9 mg/dL (0.2-1.3); Bilirubin Unconjugated 0.3 mg/dL (0.0-1.1); Globulin 2.9 g/dL (1.7-4.1); HEMOLYSIS < 15 (0-50); Lactate (Lactic Acid) 2.5 mmol/L (0.7-2.1); Total Protein 4.9 g/dL (6.3-8.2)
[2022-02-03 08:45] LABS: Alanine Aminotransferase 18 IU/L (<50); Albumin 2.1 g/dL (3.5-5.0); Albumin Globulin Ratio 0.7 (1.0-2.8); Alkaline Phosphatase 249 U/L (38-126); Aspartate Aminotransferase 34 IU/L (17-59); BUN Creatinine Ratio 16.3 (6-22); Bilirubin Total 0.8 mg/dL (0.2-1.3); Blood Urea Nitrogen 76 mg/dL (9-20); Calcium 8.4 mg/dL (8.4-10.2); Carbon Dioxide 21 mmol/L (22-32); Chloride 109 mmol/L (98-107); Estimated Glomerular Filt Rate 14 mL/min (>60); Globulin 3.1 g/dL (1.7-4.1); Glucose 119 mg/dL (70-100); HEMOLYSIS < 15 (0-50); Potassium 4.8 mmol/L (3.4-5.1); Sodium 135 mmol/L (137-145); Total Protein 5.2 g/dL (6.3-8.2)
[2022-02-03 08:46] LABS: Hematocrit 25.3 % (41-53); Hemoglobin 8.4 g/dL (13.5-17.5); Mean Corpuscular HGB Conc 33.1 % (30-36); Mean Corpuscular Volume 96.7 fL (80-100); Platelet Count 142 X10^3/uL (150-400); Red Blood Cell Count 2.62 X10^6/uL (4.5-5.9); Red Cell Distribution Width 20.9 % (11.6-14.8); White Blood Cell Count 5.7 X10^3/uL (4.5-11.0)
[2022-02-03 08:47] LABS: Add Manual Diff / Slide Review YES
[2022-02-03 09:04] LABS: Anisocytosis 2+; Hypochromasia 1+; Neutrophils Absolute Manual 4446 /uL (3000-5900); Total Cells Counted 100
[2022-02-03] MEDS: ALBUMIN HUMAN 25 GM/100 ML VIAL IV ×3 (09:09→20:18)
[2022-02-03 09:17] LABS: HCO3 ABG 9 mmol/L (22-26); Oxygen Saturation ABG 75 % (95-100); PCO2 ABG 19.3 mmHg (35-45); PO2 ABG 43 mmHg (80-100); TCO2 ABG 10 mmol/L (21-31)
[2022-02-03 09:18] LABS: Fractionated Inspired Oxygen 40
[2022-02-03 09:27] LABS: Ammonia (NH3) 136 umol/L (9-30)
[2022-02-03 09:34] LABS: Vitamin B12 Reflex MMA if <400 > 1000 pg/mL (239-931)
[2022-02-03] MEDS: LACTULOSE 20 GM/30 ML SOLUTION 30 GM PO (09:47)
[2022-02-03] MEDS: FUROSEMIDE 100 MG in SODIUM CHLORIDE 0.9% 50 ML 9 MG IV ×3 (09:47→21:55)
[2022-02-03] MEDS: HEPARIN 5,000 UNIT/ML VIAL 5000 UNIT SUBCUT ×2 (09:48→20:17)
[2022-02-03] MEDS: metOLazone 2.5 MG TABLET 5 MG PO (09:48)
[2022-02-03] MEDS: MYCOPHENOLATE MOFETIL 500 MG TABLET PO (09:48)
[2022-02-03] MEDS: FAMOTIDINE 20 MG/2 ML VIAL IV ×2 (09:48→20:17)
[2022-02-03] MEDS: RIFAXIMIN 550 MG TABLET PO (09:49)
[2022-02-03 10:12] LABS: COVID19 - ADMIT (NP swab/PCR) POSITIVE (Negative)
[2022-02-03 10:18] LABS: HCO3 ABG 20 mmol/L (22-26); Oxygen Saturation ABG 97 % (95-100); PCO2 ABG 33.1 mmHg (35-45); PO2 ABG 91 mmHg (80-100); TCO2 ABG 21 mmol/L (21-31)
[2022-02-03 10:19] LABS: Fractionated Inspired Oxygen 40
[2022-02-03 10:26] LABS: Reflexed Lactate in 2 Hours Y
[2022-02-03] MEDS: propofoL 1,000 MG/100 ML VIAL 18.207 MG IV (11:52)
[2022-02-03 12:25] LABS: Lactate 2HR (Lactic Acid Rflx) 1.2 mmol/L (0.7-2.1)
--- NOTE | 2022-02-03 12:32 | DIET.CONS ---
Dietary Consultation Note Admission Date: 02/02/2022 09:55 Assessment: 56 y/o M admitted with PMH of liver transplant r/t Hep C/HCC, CKD4, and recent +Covid test. Admitted for SOB and edema. Pt was intubated and will begin trickle feeds with plan to transfer to [facility] per hospitalist. Currently on 30 mcg/kg/min of propofol Ht: 167.64 cm Wt: 101.151 kg BMI: 35.9 Last BM: 02/01/22 (02/01/22 17:43) MNA: 12 Pedro Score: 17 Diet: 02/02/22 Lunch Renal Diet Diet Modifications: potassium and phosphorus okay Safety Tray needed?: No Renal Specifics: 2gm Sodium Restriction Low Protein Nutrition Percent Meal Consumed 0% 02/02/22 18:00 Percent Meal Consumed 50% 02/02/22 13:50 Percent Meal Consumed refused breakfast 02/02/22 10:10 Labs: RBC 2.62 X10^6/uL (4.5-5.9) L 02/03/22 08:25 Hgb 8.4 g/dL (13.5-17.5) L 02/03/22 08:25 Hct 25.3 % (41-53) L 02/03/22 08:25 Creatinine 4.65 mg/dL (0.66-1.25) H 02/03/22 08:36 Lactate 1.2 mmol/L (0.7-2.1) 02/03/22 12:00 NT-Pro-B Natriuret Pep 89077 pg/mL (<125) H 02/01/22 12:17 Nutrition Diagnosis: Inadequate oral intake r/t intubation aeb insufficient energy intake compared to estimated energy expenditure Interventions: 1. 10ml/hr Jevity 1.2 Formula provides 288 kcal/day Propofol provides 482 kcal/day Total kcal: 770 kcal/day (54% of needs) 2. Hospitalist to manage fluids and flushes to keep line clear 3. HOB elevated at least 30 degrees at all time to reduce risk of aspiration. 4. Daily weights. 5. Please monitor for refeeding prn This rate currently does not meet nutritional needs. If pt does not transfer will need to re-evaluate rate of TF. Rate goal to meet 88% (1246 kcal) of EER would be 25 ml/hr with current propofol amount + one liquid protein packet to meet 73% (44g) PRO needs. EER: 1420 kcal (16 kcal per kg per BMI and vent) PRO 60g (0.6g/kg per CKD 4) Monitoring/Evaluations: TF tolerance, wt, labs Electronically Signed by: Priscilla Katz 02/03/22 12:32 Clinical Dietitian [address] [id number]
[2022-02-03] MEDS: LACTULOSE 20 GM/30 ML SOLUTION 30 GM TUBE ×3 (12:49→20:18)
[2022-02-03] MEDS: fentaNYL 1,000 MCG in DEXTROSE 5% IN WATER 230 ML 37.932 MCG IV (14:14)
--- NOTE | 2022-02-03 16:13 | PM.PN.1 ---
Subjective Subjective Date Patient Seen: 02/03/22 Interval history: 56-year-old gentleman with prior hepatitis-C/ HCC status post liver transplant on cyclosporine and mycophenolate, CKD 4 with baseline creatinine of 3.5, and recent COVID positivity who is presently hospital day 3. Early this morning, patient was noted to have prolonged episodes of apnea. He had altered mental status, was a nauseated and having bilious vomiting. He was noted to be very lethargic. Had been refusing lactulose. ABG was performed and revealed evidence of a metabolic acidosis. There is subsequent increasing concern about patient being unable to protect his airway. He was subsequently intubated and placed on mechanical ventilation. Tele-Reexaminer placed him on furosemide drip as well. ET tube was pulled back to appropriate position as it was initially 1.9 cm from the valorie. ventilator adjustment were made due to persistent acidosis and decreased CO2. Patient has been accepted to the [facility] for ongoing management of his critical illness. Unfortunately, there are no beds available at this time. Per nursing, patient has been agitated with cares. He is presently unresponsive and calm for my visit. Exam Vital Signs (past 8 hours): - Ventilator adjustments 02/03/22 08:31 02/03/22 08:39 02/03/22 09:00 Temperature 98.6 F Pulse Rate 66 62 Respiratory Rate 22 Blood Pressure 104/62 103/61 112/67 Pulse Oximetry 96 98 100 02/03/22 09:30 02/03/22 10:00 02/03/22 10:30 Temperature Pulse Rate 60 59 L 62 Respiratory Rate 16 16 16 Blood Pressure 113/67 123/74 150/80 H Pulse Oximetry 100 100 100 02/03/22 11:00 02/03/22 11:30 02/03/22 12:00 Temperature 98.1 F Pulse Rate 59 L 58 L 57 L Respiratory Rate 16 16 16 Blood Pressure 143/78 H 151/83 H 152/84 H Pulse Oximetry 100 100 99 02/03/22 12:30 02/03/22 13:02 02/03/22 13:39 Temperature Pulse Rate 57 L 56 L 58 L Respiratory Rate 16 16 16 Blood Pressure 142/81 H 174/89 H 150/67 H Pulse Oximetry 99 100 100 02/03/22 14:00 02/03/22 15:05 02/03/22 15:30 Temperature Pulse Rate 55 L 63 56 L Respiratory Rate 16 17 17 Blood Pressure 173/81 H Pulse Oximetry 100 100 99 Fraction of Inspired Oxygen 40 Oxygen Delivery Method Mechanical Ventilation Oxygen Flow Rate 0 Narrative Exam Narrative: GEN: sedated and intubated middle aged male, appears critically ill HEENT:NC, Face symmetric CHEST: Respiratory excursions symmetric, CTAB, does not over breathe the ventilator CV: RRR, no M/R/G ABD: Soft, NT/ND, hypoactive bowel tones in all 4 quadrants, no organomegaly or masses appreciated EXTR: warm, well perfused, no C/C, 3 bilateral upper extremity edema, 2 to 3+ lower extremity edema SKIN: warm and dry, no rash, pale NEURO: intubated, sedated, moves extremities Objective Labs Result Diagrams: 02/03/22 08:25 02/03/22 08:36 Labs: Laboratory Results - last 24 hr 02/02/22 02/03/22 02/03/22 16:23 03:56 06:09 WBC RBC Hgb Hct MCV MCH MCHC RDW Plt Count Neut % (Auto) Lymph % (Auto) [place] % (Auto) Eos % (Auto) Baso % (Auto) Lymph # (Auto) [place] # (Auto) Baso # (Auto) Total Counted Seg Neutrophils % Lymphocytes % (Manual) Monocytes % (Manual) Eosinophils % (Manual) Neutrophils # (Manual) RBC Morphology Hypochromasia Anisocytosis PT INR ABG pH 7.38 7.25 L* ABG pCO2 31.7 L 48.1 H ABG pO2 46 L* 146 H ABG HCO3 19 L 21 L ABG Total CO2 20 L 22 ABG O2 Saturation 81 L* 99 ABG Base Excess -6.0 L -6.0 L FiO2 21 50 Sodium Potassium Chloride Carbon Dioxide BUN Creatinine Estimated GFR BUN/Creatinine Ratio Glucose Lactate Calcium Total Bilirubin Conjugated Bilirubin Unconjugated Bilirubin AST ALT Alkaline Phosphatase Ammonia Total Protein Albumin Globulin Albumin/Globulin Ratio Vitamin B12 Urine Color Yellow Urine Appearance Slightly cloudy Urine pH 5.0 Ur Specific [place] 1.015 Urine Protein 2+ H Urine Glucose (UA) Negative Urine Ketones Negative Urine Occult Blood 3+ H Urine Nitrate Negative Urine Bilirubin Negative Urine Urobilinogen 0.2 Ur Leukocyte Esterase Negative Urine RBC 5-10/hpf H Urine WBC 1-5/hpf Ur Squamous Epith Cells 1-5 /hpf Amorphous Sediment 1+ Urine Bacteria None seen Hyaline Casts 1-5/lpf Urine Mucus 1+ H Ur Culture Indicated? Cult not indicated SARS-CoV-2 (PCR) 02/03/22 02/03/22 02/03/22 08:00 08:25 08:25 WBC RBC Hgb Hct MCV MCH MCHC RDW Plt Count Neut % (Auto) Lymph % (Auto) [place] % (Auto) Eos % (Auto) Baso % (Auto) Lymph # (Auto) [place] # (Auto) Baso # (Auto) Total Counted Seg Neutrophils % Lymphocytes % (Manual) Monocytes % (Manual) Eosinophils % (Manual) Neutrophils # (Manual) RBC Morphology Hypochromasia Anisocytosis PT 11.7 INR 1.1 ABG pH 7.30 L ABG pCO2 19.3 L* ABG pO2 43 L* ABG HCO3 9 L ABG Total CO2 10 L ABG O2 Saturation 75 L* ABG Base Excess -17.0 L FiO2 40 Sodium Potassium Chloride Carbon Dioxide BUN Creatinine Estimated GFR BUN/Creatinine Ratio Glucose Lactate Calcium Total Bilirubin 0.9 Conjugated Bilirubin 0.0 Unconjugated Bilirubin 0.3 AST 34 ALT 17 Alkaline Phosphatase 248 H Ammonia Total Protein 4.9 L Albumin 2.0 L Globulin 2.9 Albumin/Globulin Ratio 0.7 L Vitamin B12 Urine Color Urine Appearance Urine pH Ur Specific [place] Urine Protein Urine Glucose (UA) Urine Ketones Urine Occult Blood Urine Nitrate Urine Bilirubin Urine Urobilinogen Ur Leukocyte Esterase Urine RBC Urine WBC Ur Squamous Epith Cells Amorphous Sediment Urine Bacteria Hyaline Casts Urine Mucus Ur Culture Indicated? SARS-CoV-2 (PCR) 02/03/22 02/03/22 02/03/22 08:25 08:25 08:25 WBC 5.7 RBC 2.62 L Hgb 8.4 L Hct 25.3 L MCV 96.7 MCH 32.0 MCHC 33.1 RDW 20.9 H Plt Count 142 L Neut % (Auto) Not Reportable Lymph % (Auto) Not Reportable [place] % (Auto) Not Reportable Eos % (Auto) Not Reportable Baso % (Auto) Not Reportable Lymph # (Auto) Not Reportable [place] # (Auto) Not Reportable Baso # (Auto) Not Reportable Total Counted 100 Seg Neutrophils % 78.0 H D Lymphocytes % (Manual) 19.0 L Monocytes % (Manual) 2.0 Eosinophils % (Manual) 1.0 L Neutrophils # (Manual) 4446 RBC Morphology Not Reportable Hypochromasia 1+ H Anisocytosis 2+ H PT INR ABG pH ABG pCO2 ABG pO2 ABG HCO3 ABG Total CO2 ABG O2 Saturation ABG Base Excess FiO2 Sodium Potassium Chloride Carbon Dioxide BUN Creatinine Estimated GFR BUN/Creatinine Ratio Glucose Lactate 2.5 H Calcium Total Bilirubin Conjugated Bilirubin Unconjugated Bilirubin AST ALT Alkaline Phosphatase Ammonia Total Protein Albumin Globulin Albumin/Globulin Ratio Vitamin B12 > 1000 H Urine Color Urine Appearance Urine pH Ur Specific [place] Urine Protein Urine Glucose (UA) Urine Ketones Urine Occult Blood Urine Nitrate Urine Bilirubin Urine Urobilinogen Ur Leukocyte Esterase Urine RBC Urine WBC Ur Squamous Epith Cells Amorphous Sediment Urine Bacteria Hyaline Casts Urine Mucus Ur Culture Indicated? SARS-CoV-2 (PCR) 02/03/22 02/03/22 02/03/22 08:36 08:50 09:11 WBC RBC Hgb Hct MCV MCH MCHC RDW Plt Count Neut % (Auto) Lymph % (Auto) [place] % (Auto) Eos % (Auto) Baso % (Auto) Lymph # (Auto) [place] # (Auto) Baso # (Auto) Total Counted Seg Neutrophils % Lymphocytes % (Manual) Monocytes % (Manual) Eosinophils % (Manual) Neutrophils # (Manual) RBC Morphology Hypochromasia Anisocytosis PT INR ABG pH ABG pCO2 ABG pO2 ABG HCO3 ABG Total CO2 ABG O2 Saturation ABG Base Excess FiO2 Sodium 135 L Potassium 4.8 Chloride 109 H Carbon Dioxide 21 L BUN 76 H Creatinine 4.65 H Estimated GFR 14 L BUN/Creatinine Ratio 16.3 Glucose 119 H Lactate Calcium 8.4 Total Bilirubin 0.8 Conjugated Bilirubin Unconjugated Bilirubin AST 34 ALT 18 Alkaline Phosphatase 249 H Ammonia 136 H Total Protein 5.2 L Albumin 2.1 L Globulin 3.1 Albumin/Globulin Ratio 0.7 L Vitamin B12 Urine Color Urine Appearance Urine pH Ur Specific [place] Urine Protein Urine Glucose (UA) Urine Ketones Urine Occult Blood Urine Nitrate Urine Bilirubin Urine Urobilinogen Ur Leukocyte Esterase Urine RBC Urine WBC Ur Squamous Epith Cells Amorphous Sediment Urine Bacteria Hyaline Casts Urine Mucus Ur Culture Indicated? SARS-CoV-2 (PCR) Positive H 02/03/22 02/03/22 09:38 12:00 WBC RBC Hgb Hct MCV MCH MCHC RDW Plt Count Neut % (Auto) Lymph % (Auto) [place] % (Auto) Eos % (Auto) Baso % (Auto) Lymph # (Auto) [place] # (Auto) Baso # (Auto) Total Counted Seg Neutrophils % Lymphocytes % (Manual) Monocytes % (Manual) Eosinophils % (Manual) Neutrophils # (Manual) RBC Morphology Hypochromasia Anisocytosis PT INR ABG pH 7.40 ABG pCO2 33.1 L ABG pO2 91 ABG HCO3 20 L ABG Total CO2 21 ABG O2 Saturation 97 ABG Base Excess -4.0 L FiO2 40 Sodium Potassium Chloride Carbon Dioxide BUN Creatinine Estimated GFR BUN/Creatinine Ratio Glucose Lactate 1.2 Calcium Total Bilirubin Conjugated Bilirubin Unconjugated Bilirubin AST ALT Alkaline Phosphatase Ammonia Total Protein Albumin Globulin Albumin/Globulin Ratio Vitamin B12 Urine Color Urine Appearance Urine pH Ur Specific [place] Urine Protein Urine Glucose (UA) Urine Ketones Urine Occult Blood Urine Nitrate Urine Bilirubin Urine Urobilinogen Ur Leukocyte Esterase Urine RBC Urine WBC Ur Squamous Epith Cells Amorphous Sediment Urine Bacteria Hyaline Casts Urine Mucus Ur Culture Indicated? SARS-CoV-2 (PCR) [facility] Medical History Cirrhosis of liver CKD (chronic kidney disease) Compression fracture Depression Former smoker GERD (gastroesophageal reflux disease) Gout Hepatitis C (~2011) History of vertebral compression fracture Hypertension Immunosuppression Liver cancer Medical marijuana use GUILLE (obstructive sleep apnea) Osteoporosis PAC (premature atrial contraction) Pain management contract agreement Paroxysmal atrial fibrillation PVC (premature ventricular contraction) Thrombocytopenia Surgical History H/O right wrist surgery History of biliary duct stent placement (01/2013) History of open reduction and internal fixation (ORIF) procedure (09/22/20) History of removal of retained hardware (01/25/21) History of right hip replacement Hx of appendectomy (~1979) Hx of cholecystectomy (~2003) Hx of elbow surgery (~2003) Hx of elbow surgery (~2007) Hx of fusion of cervical spine Hx of hernia repair Hx of shoulder surgery (~2012) Hx of tonsillectomy (~1969) Liver transplant recipient (11/24/11) Presence of left artificial elbow joint Family History Mother Renal failure Father Diabetes mellitus Congestive heart failure Social History household members: none Smoking Status: Former smoker alcohol intake: current Assessment & Plan Assessment & Plan narrative: 1. Acute hypoxic respiratory failure Patient is intubated and mechanically ventilated. Currently sedated with Propofol and fentanyl.. Ongoing management per seed packer. 2. Acute renal failure In the setting of CKD stage 4 Unfortunately, patient's creatinine continues to rise. He has anasarca. He is somewhat oliguric. I suspect he will ultimately require dialysis for fluid management. Await transfer to [facility]. 3. Hepatic encephalopathy in the setting of previous liver transplant Continue lactulose and rifaximin, these will be given via OG tube. Ammonia level was 192 yesterday, 136 today. LFTs are presently within normal limits with the exception of an alkaline phosphatase of 249. Cyclosporine level presently pending. Therefore, it has been held due to concerns of cyclosporine toxicity. Remains on mycophenolate. 4. GERD on IV famotidine. 5. Chronic pain with opiate dependence Opiates have been held at this time. 6. Recent COVID infection No evidence of ongoing active COVID infection. 7. History of hepatitis-C and HCC As noted patient is a liver transplant recipient. 8. Psychosocial issues Patient is presently homeless without family support. code status Full prophylaxis On subQ heparin disposition Pending transfer to [facility] once an ICU bed is available. Time Spent With Patient Critical Care time: I spent a total of [] minutes of critical care time on this patient's care today; this time is exclusive of procedural time. Quality VTE Deep Vein Thrombosis/Pulmonary Embolism Present on Admission: No
--- NOTE | 2022-02-03 16:51 | PC.NURSE ---
0715- Spoke with hospitalist Chao) who is requesting lab results from recently placed order. Updated hospitalist that per report, lab staff unable to draw and pt does not have central line access. Also reported pt with 1 PIV in the thumb and multiple IV meds ordered at same time, unable to give all meds at this time; awaiting PICC placement. Reported pt without OGT at this time, unable to give PO meds until placement and verification. Also asked hospitalist if family has been notified and hospitalist states she has not notified family. [phone]- Requested assistance from supervisor lamp shades to notify family, obtain blood product consent due pt being intubated/sedated with orders for Albumin. Minibus Driver states that hospitalist has attempted to call next of kin with no answer and message was left to return call. Spoke with supervisor lamp shades who states due to urgent situation, OK to give albumin without consent. Placed 16 [place] OGT after PICC placed by AUNG RN. RT adjusted ETT and XR was obtained confirming appropriate placement. (Results not immediately available. Obtained printed report from DI ~0930) 0930- Spoke with tele icu MD via phone. Rec'd orders for STAT ABG. Plan to do rounds at 1000 after ABG obtained. Reviewed PO meds with hospitalist who states OK to give per tube. Administered meds per tube, started lasix and albumin. 1000- Tele icu rounds. Reported delayed med timings due to lack of OG/IV access. Reported I/Os, labs, VS, vent settings, ABG results. Orders received for add'l 80 mg lasix now. Plan to start trophic feeds today. Awaiting bed at . 1445- Rec'd message to return call to Robyn Guidry (pt's next of kin). Returned call and spoke with Robyn who states that pt is her brother and while she is the next of kin and willing to make medical decisions on his behalf should he be unable to do so, she does not want to be involved in discharge planning due to difficult family dynamics. States pt is estranged from family. Updated Robyn that plan is for pt to transfer to higher level of care due to change in condition. She verbalizes understanding and is grateful for the update.
[2022-02-03] MEDS: propofoL 1,000 MG/100 ML VIAL 12.138 MG IV (17:33)
[2022-02-03] MEDS: RIFAXIMIN 550 MG TABLET TUBE (20:17)
[2022-02-03] MEDS: metOLazone 2.5 MG TABLET 5 MG TUBE (20:17)
[2022-02-03] MEDS: MYCOPHENOLATE MOFETIL 500 MG TABLET TUBE (20:18)
--- NOTE | 2022-02-03 20:21 | PM.ICURNDS ---
- :: This patient was seen via real time interactive two-way audiovisual telecommunication. pending trasnfer - currently remains on propofol and intubated. No bm, so I dont expect a marked reduction in ammonia level. Cr and bicarb seem to be getting worse. will trend coags and albumin. diuresing well otherwise
--- NOTE | 2022-02-03 20:55 | DI.ECHO.S_ITS ---
[facility] +---------+ [facility] +---------+ : : [address] : [place] [address] : : : : [id number] : : : : Phone: [phone] Echocardiogram Report + + :Name: BERNICE GLYNN Study Date: 02/04/2022 Height: 66 in : :[facility] ReadingLocation: Weight: 223 lb : : Gender: Male BSA: 2.1 m2 : :: 1965 Age: 56 yrs BP: 159/80 mmHg: :Reason For Study: ANASARCA, ASSESS INTER/INTRAVASCULAR VOLUME : :STATUS : :Ordering Physician: Niesha NAPIERformed By: Pamela Finn : :Referring: BENTON NAPIER : + + Interpretation Summary There is mild concentric left ventricular hypertrophy. The ejection fraction is estimated to be 60-65%. Diastolic function could not be accurately assessed due to unobtainable data. The right ventricle is borderline dilated. The right ventricular systolic function is normal. The left atrium is severely dilated. There is mild mitral regurgitation. There is mild tricuspid regurgitation. Right ventricular systolic pressure is estimated to be 36 mmHg plus the clinically estimated CVP which cannot be estimated on this exam. Compared to the study from 02/02/2022, while the left ventricle is no longer hyperdynamic, the ejection fraction remains normal. Pulmonary artery pressure is likely higher on the current study. Procedure: A two-dimensional transthoracic echocardiogram with color flow and Doppler was performed in limited views only to assess anasarca, assess inter/intravascular volume status. Comparison is made with the echocardiogram of 02/02/2022. The study quality was technically good. The heart rate ranged between 55-73 bpm during the study. Left Ventricle: The left ventricle is normal in size. There is mild concentric left ventricular hypertrophy. The ejection fraction is estimated to be 60-65%. Diastolic function could not be accurately assessed due to unobtainable data. Right Ventricle: The right ventricle is borderline dilated. The right ventricular systolic function is normal. Atria: The left atrium is severely dilated. The right atrium is mildly dilated. Mitral Valve: The mitral valve is normal. There is mild mitral regurgitation. Aortic Valve: The aortic valve opens well. There is no aortic valve stenosis. Tricuspid Valve: The tricuspid valve is normal. There is mild tricuspid regurgitation. Right ventricular systolic pressure is estimated to be 36 mmHg plus the clinically estimated CVP which cannot be estimated on this exam. Great Vessels: Inspiratory collapse cannot be assessed because of mechanical ventilation, thus CVP cannot be estimated.. The IVC is dilated, but has some respiratory collapse suggesting high central venous pressure. Pericardium/ Pleura There is no pericardial effusion. There is no pleural effusion. MMode/2D Measurements & Calculations LVIDd: 4.9 cm LVOT diam: 2.0 cm LVIDs: 3.1 cm FS: 37.1 % IVSd: 1.2 cm LVPWd: 1.1 cm LV cook. diameter/BSA (cm/m^2): 2.3 LV sys. diameter/BSA (cm/m^2): 1.5 LA A2 area: 42.8 cm2 RA long axis: 6.7 cm LA A4 area: 35.6 cm2 RA area: 26.3 cm2 LA length (vol): 8.0 cm RA vol: 87.3 ml LA vol: 160.9 ml RA : 41.7 ml/m2 LA vol index: 76.8 ml/m2 IVC diam: 2.8 cm RVD1 (basal): 4.3 cm RVD2 (mid): 3.8 cm TAPSE: 2.0 cm Doppler Measurements & Calculations Ao V2 max: 164.9 cm/sec LVOT Max Luis: 109.6 cm/sec Ao V2 mean: 120.3 cm/sec LV V1 max P.8 mmHg Ao max P.9 mmHg LV V1 VTI: 25.7 cm Ao mean P.3 mmHg NORA(I,D): 1.9 cm2 Ao V2 VTI: 44.0 cm NORA(V,D): 2.2 cm2 sev ratio: 0.59 NORA indexed to BSA (cm^2/m^2): 0.91 MV E max luis: 94.3 cm/sec TR max luis: 295.5 cm/sec MV A max luis: 46.5 cm/sec TR max P.1 mmHg MV E/A: 2.0 Med Peak E' Luis: 3.7 cm/sec E/E' med: 25.3 Lat Peak E' Luis: 6.3 cm/sec E/E' lat: 15.0 E/e' average: 20.2 MV dec time: 0.42 sec SV(LVOT): 83.7 ml Reading Physician:03:47 PM
[2022-02-03 21:01] LABS: Cyclosporine, Blood 82 ng/mL (100-400)
--- NOTE | 2022-02-03 21:42 | PC.NURSE ---
Addendum entered by Glenny Amaya R.N. 02/04/22 05:20: 0515- Patient had a 14beat run of accellerated idio at a rate of 102. Labs are pending. Rhythm broke on its own. Patient has had a total of 3 watery loose stools. RASS is at -2. Propofol at 15mic/kg/min, Fentanyl at 0.7 marco antonio/kg/hr, lasix gtt at 9ml/hr. Lungs are clear. Cruz secretions via Endotracheal suction. Afebrile. Opens his eyes but does not track. Soft wrist restraints for safety. PRODUCTION CONTROL SPECIALIST Kris updated and reminded that a new Restraint order is needed by 7AM. Will monitor. Original Note: 2100- Patient had a large watery BM. Linens changed, and patient turned. Tolerated well. Sedation decreased due to Rass of -3. Propofol now at 15mic/kg/min. Patient Vss. Will monitor.
[2022-02-04] VITALS (56 sets, daily range): BP systolic 126–173; BP diastolic 61–82; PULSE 55–109; RESP 14–25; TEMP 36.8–37.1; O2SAT 98–100
[2022-02-04] MEDS: propofoL 1,000 MG/100 ML VIAL 9.104 MG IV ×3 (01:13→19:49)
[2022-02-04] MEDS: fentaNYL 1,000 MCG in DEXTROSE 5% IN WATER 230 ML 17.701 MCG IV ×2 (01:14→15:26)
[2022-02-04] MEDS: ALBUMIN HUMAN 25 GM/100 ML VIAL IV ×3 (02:52→15:26)
[2022-02-04] MEDS: FUROSEMIDE 100 MG in SODIUM CHLORIDE 0.9% 50 ML 9 MG IV ×3 (04:37→16:23)
[2022-02-04 05:09] LABS: Add Manual Diff / Slide Review NO; Basophils Absolute Auto 100 /uL (0-100); Basophils Percent Auto 1.1 % (0-2); Eosinophils Absolute Auto 200 /uL (0-450); Eosinophils Percent Auto 2.5 % (2-4); Lymphocytes Absolute Auto 2700 /uL (1100-4500); Lymphocytes Percent Auto 43.6 % (25-40); Mean Corpuscular HGB Conc 33.2 % (30-36); Mean Corpuscular Volume 96.4 fL (80-100); Monocytes Absolute Auto 600 /uL (0-900); Monocytes Percent Auto 9.9 % (3-14); Neutrophils Absolute Auto 2600 /uL (1500-7000); Neutrophils Percent Auto 42.9 % (50-75); Platelet Count 110 X10^3/uL (150-400); Red Blood Cell Count 2.19 X10^6/uL (4.5-5.9); Red Cell Distribution Width 20.4 % (11.6-14.8); White Blood Cell Count 6.1 X10^3/uL (4.5-11.0)
[2022-02-04 05:12] LABS: Ammonia (NH3) 117 umol/L (9-30)
[2022-02-04 05:13] LABS: Alanine Aminotransferase 13 IU/L (<50); Albumin 2.5 g/dL (3.5-5.0); Alkaline Phosphatase 183 U/L (38-126); Aspartate Aminotransferase 32 IU/L (17-59); Bilirubin Total 0.8 mg/dL (0.2-1.3); Bilirubin Unconjugated 0.3 mg/dL (0.0-1.1); Globulin 2.5 g/dL (1.7-4.1); HEMOLYSIS 16 (0-50); Magnesium 1.7 mg/dL (1.6-2.3)
[2022-02-04 05:14] LABS: BUN Creatinine Ratio 17.2 (6-22); Blood Urea Nitrogen 76 mg/dL (9-20); Calcium 8.4 mg/dL (8.4-10.2); Carbon Dioxide 23 mmol/L (22-32); Chloride 107 mmol/L (98-107); Estimated Glomerular Filt Rate 15 mL/min (>60); Glucose 127 mg/dL (70-100); HEMOLYSIS 16 (0-50); Potassium 4.1 mmol/L (3.4-5.1); Sodium 135 mmol/L (137-145)
[2022-02-04 05:27] LABS: Hematocrit 21.2 % (41-53)
[2022-02-04 05:50] LABS: Anisocytosis 2+; Hypochromasia 1+; Schistocytes 1+; Target Cells 1+
[2022-02-04] MEDS: MAGNESIUM SULFATE 2 GM/50 ML PIGGYBACK IV (06:32)
[2022-02-04] MEDS: HEPARIN 5,000 UNIT/ML VIAL 5000 UNIT SUBCUT ×2 (08:29→21:01)
[2022-02-04] MEDS: LACTULOSE 20 GM/30 ML SOLUTION 30 GM TUBE ×4 (08:29→21:02)
[2022-02-04] MEDS: FAMOTIDINE 20 MG/2 ML VIAL IV ×2 (08:29→21:00)
[2022-02-04] MEDS: RIFAXIMIN 550 MG TABLET TUBE ×2 (08:30→21:01)
[2022-02-04] MEDS: MYCOPHENOLATE MOFETIL 500 MG TABLET TUBE ×2 (08:30→21:01)
[2022-02-04] MEDS: metOLazone 2.5 MG TABLET 5 MG TUBE ×2 (08:31→12:36)
--- NOTE | 2022-02-04 09:55 | PC.NURSE ---
Addendum entered by Jeanine Lawrence R.N. 02/04/22 17:53: 1745 Dr Veronica spoke to pt sister and pt is now a DNR, see addendum in Dr Veronica's note Addendum entered by Jeanine Lawrence R.N. 02/04/22 17:40: 1737 per provider's order administer additional dose of 5mg hydralazine for BP of 172/82 Addendum entered by Jeanine Lawrence R.N. 02/04/22 17:03: Vent settings are as follows FiO2 35% PEEP 5 RR 16 TV 380 Addendum entered by Jeanine Lawrence R.N. 02/04/22 16:11: [address] Veronica on pt BP, most recent is 173/81, has been increasing all day, will place new orders for PRN hydralazine. Will continue to treat and monitor. Addendum entered by Jeanine Lawrence R.N. 02/04/22 13:09: 1300 OG tube became clogged while administering Lactulose, unable to unclog, Hospitalist notified order received to replace OG, replaced, pending CXR for placement, will continue to monitor Addendum entered by Jeanine Lawrence R.N. 02/04/22 11:34: Spoke to Dr Veronica regarding Artline, she agree's that it is not necessary at this time. Original Note: Dayshift note Pt had a 14 beat run of acc idio with a rate of 102 for NOC shift, mag replaced. RASS is at goal which is -2, sedation medications infusing as noted in emar, attempted to decrease sedation this morning at 0800, pt became extremely agitated, restarted sedation, vent settings remain at FiO2 40% PEEP 5 RR 16 TV 380, pt tolerating well, Lungs are clear, endotracheal suction produces tanish secretions, small amount, vss pt is afebrile, opens eyes to voice, but does not track. Bilateral soft wrist restraints in place for safety. Bed low and locked, will continue to monitor.
--- NOTE | 2022-02-04 09:56 | PM.PN.EICU ---
Subjective Subjective If camera was activated, add TeleICU A-V statement: Mr. Wilks is a 56M with PMH hep C and HCC, s/p liver transplant, CKD stage 4, presented with shortness of breath and anasarca, found to have pul edema, SANDY & hepatic encephalopathy, overnight his encephalopathy worsened, causing hepatic hypercapnic resp failure, didn?t tolerated BIPAP, so he was transferred to ICU and placed on mechanical ventilation. Today: Continue to be on the vent, agiated when sedation is lightened, UOP about 50 ml/hr, Cr stable, HD stable, ammonia level trending down Assessment: Acute hypercapnic ?and hypoxic resp failure 2/2 Co2 retention / poor inspiratory drive ( hepatic encephalopathy) & pul edema Hepatic encephalopathy ( H/o of liver transplant) Pul edema/ generalized anasarca 2/2 renal failure SANDY on CKD stage 4, could be ATN/ CNI toxicity H/o of COVID infection ( 01/17 & 02/01) Rec: ?Sedation, propfol and fenatly, continue to wean off sedation to a RASS -1 goal, plan for switching to Precedex in Am Continue current Vent sitting, on minimal support with 6 ml/kg TV, repeat ABG and CXR i Am IV Lasix bolus 80 mg, increase the drip to 20 mg/hr & metolazone to 10 mg bid, adjust Lasix to a goal of 150-200 ml of UOP/ hr IV albumin 25 gm Q6H x 48 hrs total Continue to hold Cyclosporine, pending level, add prednisone as the cyclosporin level is taking long time to come back, continue Cellcept Continue Lactulose 30 mg QID (Goal 3-4 BM), Rifaximine 550 mg bid Check liver function, CMP and coags daily Chronic pain & opiate dependence , hold PO, currently on fentanyl drip IV Pepcid & SC heparin Code full Pt may need STAFF RADIOGRAPHER soon (pending transfer to a higher level of care) CCT 40 min Current Medications Current Medications Medications: Home Medications allopurinol 100 mg tablet 100 mg PO DAILY 01/14/20 [History Confirmed 02/01/22] cyclosporine modified 25 mg capsule 25 mg PO BID 01/14/20 [History Confirmed 02/03/22] duloxetine 20 mg capsule,delayed release (Cymbalta) 20 mg PO DAILY 01/14/20 [History Confirmed 02/03/22] fentanyl 25 mcg/hr transdermal patch (Duragesic) 25 mcg topical Q72H 01/14/20 [History Confirmed 02/01/22] gabapentin 300 mg capsule 300 mg PO BID 01/14/20 [History Confirmed 02/03/22] hydroxyzine pamoate 25 mg capsule (Vistaril) 25 mg PO BEDTIME PRN Itching 01/14/20 [History Confirmed 07/01/21] lidocaine 5 % topical patch (Lidoderm) 1 patch topical DAILY 01/14/20 [History Confirmed 07/04/21] mycophenolate mofetil 500 mg tablet (CellCept) 500 mg PO BID 01/14/20 [History Confirmed 07/01/21] pyridoxine (vitamin B6) 100 mg tablet 100 mg PO DAILY 01/14/20 [History Confirmed 05/09/21] quetiapine 25 mg tablet (Seroquel) 25 mg PO BEDTIME 01/14/20 [History Confirmed 02/03/22] ursodiol 300 mg capsule 300 mg PO BID 01/14/20 [History Confirmed 02/03/22] vitamin B complex-vitamin C-folic acid 0.8 mg tablet (Kellie-Ramila) 1 tab PO DAILY 01/14/20 [History Confirmed 05/09/21] pantoprazole 40 mg tablet,delayed release (Protonix) 40 mg PO DAILY #30 tabs 05/14/20 [Rx Confirmed 02/03/22] rifaximin 550 mg tablet (Xifaxan) 550 mg PO BID 09/20/20 [History Confirmed 02/03/22] hydromorphone 4 mg tablet 4 mg PO Q6H PRN pain #30 tabs 09/24/20 [Rx Confirmed 07/01/21] naloxone 4 mg/actuation nasal spray (Narcan) 1 spray intranasal PER PKG DIR 30 days #1 ea 09/29/20 [Rx Confirmed 04/27/21] metoprolol succinate 25 mg tablet,extended release 24 hr 25 mg PO DAILY 01/25/21 [History Confirmed 02/03/22] tamsulosin 0.4 mg capsule 0.4 mg PO BEDTIME 04/27/21 [History Confirmed 02/03/22] aspirin 81 mg tablet,delayed release 81 mg PO BID #90 tabs 05/11/21 [Rx Confirmed 07/01/21] oxycodone 10 mg tablet 10 mg PO Q3HR PRN Pain, Severe (7-10) #60 tabs 05/11/21 [Rx] lactulose 20 gram/30 mL oral solution 30 gm PO TID #11,000 mL 07/05/21 [Rx] diphenhydramine HCl 12.5 mg/5 mL oral liquid (Benadryl Allergy) 25 mg (10 mL) PO Q4-6H PRN nausea and vomiting #200 mL 07/06/21 [Rx] famotidine 20 mg tablet (Pepcid AC) 20 mg PO BEDTIME #120 tabs 07/06/21 [Rx Confirmed 02/01/22] losartan 25 mg tablet 25 mg PO DAILY #60 tabs 07/06/21 [Rx Confirmed 02/03/22] nifedipine 30 mg tablet,extended release 24 hr 30 mg PO DAILY #60 tabs 07/06/21 [Rx] sucralfate 1 gram tablet 1 gm PO ACHS #240 tabs 07/06/21 [Rx] furosemide 40 mg tablet (Lasix) 40 mg PO DAILY #5 tabs 01/17/22 [Rx Confirmed 02/03/22] lactulose 20 gram oral packet 20 g PO BID #1 ea 01/17/22 [Rx Confirmed 02/03/22] Visit Medications (administered) Generic Name Dose Route Start Last Admin Trade Name Druq PRN Reason Stop Dose Admin Famotidine 20 mg 02/03/22 09:00 02/04/22 08:29 Famotidine 20 Mg/2 Ml Vial IV 20 mg BID JUNIOR Administration Heparin Sodium (Porcine) 5,000 unit 02/01/22 21:00 02/04/22 08:29 Heparin 5,000 Unit/Ml Vial SUBCUT 5,000 unit BID JUNIOR Administration Propofol 1,000 mg in 100 mls @ 3.035 mls/hr 02/03/22 05:30 02/04/22 08:31 Propofol IV 15 mcg/kg/min TITRATE JUNIOR 9.104 mls/hr Administration Protocol 5 MCG/KG/MIN Fentanyl 1,000 mcg/ Dextrose 250 mls @ 17.701 mls/hr 02/03/22 05:30 02/04/22 01:14 IV 0.7 mcg/kg/hr TITRATE JUNIOR 17.701 mls/hr Administration Protocol 0.7 MCG/KG/HR Furosemide 100 mg/ Sodium 60 mls @ 12 mls/hr 02/03/22 07:15 02/04/22 09:16 Chloride IV 15 mg/hr CONT JUNIOR 9 mls/hr Administration 20 MG/HR Albumin Human 25 gm in 100 mls @ 60 mls/hr 02/03/22 15:00 02/04/22 08:28 Albuminar IV 02/05/22 04:39 60 mls/hr Q6H JUNIOR Administration Insulin Human Lispro 0 unit 02/03/22 11:45 02/04/22 05:44 Insulin Lispro 100 Unit/Ml 3ml Vial SUBCUT Not Given Q6H [facility] Protocol Lactulose 30 gm 02/03/22 13:00 02/04/22 08:29 Lactulose 20 Gm/30 Ml Solution TUBE 30 gm QID JUNIOR Administration Lidocaine 1 each 02/02/22 09:00 02/04/22 08:31 Lidocaine Patch 1 Each Adh..Patch TOP Not Given DAILY [facility] Mycophenolate Mofetil 500 mg 02/03/22 21:00 02/04/22 08:30 Mycophenolate Mofetil 500 Mg Tablet TUBE 500 mg BID JUNIOR Administration Ondansetron HCl 4 mg 02/01/22 17:48 02/02/22 17:29 Ondansetron 4 Mg/2 Ml Inj IV 4 mg Q8HR PRN Administration Nausea And Vomiting Ondansetron HCl 4 mg 02/03/22 02:13 02/03/22 02:17 Ondansetron 4 Mg Odt SL 4 mg Q4HR PRN Administration Nausea Rifaximin 550 mg 02/03/22 21:00 02/04/22 08:30 Rifaximin 550 Mg Tablet TUBE 550 mg BID JUNIOR Administration Objective Ventilator Parameters: Ventilator Settings FiO2 35 RT Vent Frequency 16 Ventilator Tidal Volume 380 Exhaled Positive End Expiratory 5 Pressure Inspiratory Phase Time 1.0 Patient Position HOB >= 30 degrees Labs Result Diagrams: 02/04/22 04:45 02/04/22 04:45 Labs: Laboratory Results - last 24 hr 02/01/22 02/03/22 02/03/22 21:15 08:50 09:38 WBC RBC Hgb Hct MCV MCH MCHC RDW Plt Count Neut % (Auto) Lymph % (Auto) [place] % (Auto) Eos % (Auto) Baso % (Auto) Neut # (Auto) Lymph # (Auto) [place] # (Auto) Eos # (Auto) Baso # (Auto) RBC Morphology Hypochromasia Anisocytosis Target Cells Schistocytes ABG pH 7.40 ABG pCO2 33.1 L ABG pO2 91 ABG HCO3 20 L ABG Total CO2 21 ABG O2 Saturation 97 ABG Base Excess -4.0 L FiO2 40 Sodium Potassium Chloride Carbon Dioxide BUN Creatinine Estimated GFR BUN/Creatinine Ratio Glucose Lactate Calcium Magnesium Total Bilirubin Conjugated Bilirubin Unconjugated Bilirubin AST ALT Alkaline Phosphatase Ammonia Total Protein Albumin Globulin Albumin/Globulin Ratio Cyclosporine 82 L SARS-CoV-2 (PCR) Positive H 02/03/22 02/04/22 02/04/22 12:00 04:45 04:45 WBC 6.1 RBC 2.19 L Hgb 7.0 L Hct 21.2 L MCV 96.4 MCH 32.0 MCHC 33.2 RDW 20.4 H Plt Count 110 L Neut % (Auto) 42.9 L Lymph % (Auto) 43.6 H [place] % (Auto) 9.9 Eos % (Auto) 2.5 Baso % (Auto) 1.1 Neut # (Auto) 2600 Lymph # (Auto) 2700 [place] # (Auto) 600 Eos # (Auto) 200 Baso # (Auto) 100 RBC Morphology See below Hypochromasia 1+ H Anisocytosis 2+ H Target Cells 1+ H Schistocytes 1+ H ABG pH ABG pCO2 ABG pO2 ABG HCO3 ABG Total CO2 ABG O2 Saturation ABG Base Excess FiO2 Sodium Potassium Chloride Carbon Dioxide BUN Creatinine Estimated GFR BUN/Creatinine Ratio Glucose Lactate 1.2 Calcium Magnesium Total Bilirubin Conjugated Bilirubin Unconjugated Bilirubin AST ALT Alkaline Phosphatase Ammonia 117 H Total Protein Albumin Globulin Albumin/Globulin Ratio Cyclosporine SARS-CoV-2 (PCR) 02/04/22 02/04/22 04:45 04:45 WBC RBC Hgb Hct MCV MCH MCHC RDW Plt Count Neut % (Auto) Lymph % (Auto) [place] % (Auto) Eos % (Auto) Baso % (Auto) Neut # (Auto) Lymph # (Auto) [place] # (Auto) Eos # (Auto) Baso # (Auto) RBC Morphology Hypochromasia Anisocytosis Target Cells Schistocytes ABG pH ABG pCO2 ABG pO2 ABG HCO3 ABG Total CO2 ABG O2 Saturation ABG Base Excess FiO2 Sodium 135 L Potassium 4.1 Chloride 107 Carbon Dioxide 23 BUN 76 H Creatinine 4.42 H Estimated GFR 15 L BUN/Creatinine Ratio 17.2 Glucose 127 H Lactate Calcium 8.4 Magnesium 1.7 Total Bilirubin 0.8 Conjugated Bilirubin 0.0 Unconjugated Bilirubin 0.3 AST 32 ALT 13 Alkaline Phosphatase 183 H Ammonia Total Protein 5.0 L Albumin 2.5 L Globulin 2.5 Albumin/Globulin Ratio 1.0 Cyclosporine SARS-CoV-2 (PCR) Exam Vital Signs (past 8 hours): - 02/04/22 04:00 02/04/22 02:00 02/04/22 02:00 Pulse Rate 57 L Respiratory Rate 16 Blood Pressure 132/68 Pulse Oximetry 100 Oxygen Delivery Method Mechanical Ventilation 02/04/22 02:30 02/04/22 03:00 02/04/22 03:00 Pulse Rate 55 L 56 L Respiratory Rate 16 16 Blood Pressure 141/63 H Pulse Oximetry 100 100 Oxygen Delivery Method 02/04/22 03:30 02/04/22 04:00 02/04/22 04:00 Pulse Rate 63 62 Respiratory Rate 16 16 Blood Pressure 143/65 H Pulse Oximetry 100 100 Oxygen Delivery Method 02/04/22 04:30 02/04/22 05:00 02/04/22 05:00 Pulse Rate 60 59 L Respiratory Rate 16 16 Blood Pressure 131/61 Pulse Oximetry 100 100 Oxygen Delivery Method 02/04/22 05:30 02/04/22 06:00 02/04/22 06:00 Pulse Rate 56 L 63 Respiratory Rate 16 16 Blood Pressure 132/67 Pulse Oximetry 100 100 Oxygen Delivery Method 02/04/22 06:30 02/04/22 07:00 02/04/22 07:00 Pulse Rate 57 L 57 L Respiratory Rate 16 16 Blood Pressure 132/67 Pulse Oximetry 100 100 Oxygen Delivery Method 02/04/22 08:00 02/04/22 07:30 02/04/22 08:00 Pulse Rate 58 L Respiratory Rate 16 Blood Pressure 137/63 Pulse Oximetry 100 Oxygen Delivery Method Mechanical Ventilation 02/04/22 08:00 Pulse Rate 56 L Respiratory Rate 16 Blood Pressure Pulse Oximetry 100 Oxygen Delivery Method Fraction of Inspired Oxygen 40 Oxygen Delivery Method Mechanical Ventilation Oxygen Flow Rate 0 Quality TeleICU VTE Deep Vein Thrombosis/Pulmonary Embolism Present on Admission: No Assessment & Plan Time Spent With Patient Critical Care time: I spent a total of [] minutes of critical care time on this patient's care today; this time is exclusive of procedural time.
--- NOTE | 2022-02-04 10:37 | CM.DPC ---
DCP Cont: Patient is currently intubated. Discussed patient during team rounds, and hospitalist is working on getting patient transferred to higher level hospital. [facility] has accepted, but does not have a current bed available. At this time, kidney and liver function is getting worse. Hospitalist indicated that she may be contacting sister, Leigh, who initially did not want to be involved, but will assist with decision making if needed. Hospitalist may want to contact her to see if code status can be changed to DNR. P: DCP to continue to follow. At this time, hospitalist is continuing to work on getting patient transferred. Lara Finley RN/News Technical Director
[2022-02-04] MEDS: FUROSEMIDE 100 MG/10 ML VIAL 80 MG IV (10:52)
[2022-02-04] MEDS: predniSONE 20 MG TABLET TUBE (10:52)
--- NOTE | 2022-02-04 13:07 | DI.RAD.S_ITS ---
PROCEDURE: XR CHEST 1V INDICATIONS: Confirm OG tube placement TECHNIQUE: One view of the chest was acquired. COMPARISON: [facility], CR, XR CHEST 1V, 02/03/2022, 6:20. FINDINGS: Surgical changes and devices: Enteric tube terminates in the gastric body. Lungs and pleura: Lungs are clear. No pleural effusions or pneumothorax. Mediastinum: Mediastinal contours appear normal. Heart size is normal. Bones and chest wall: No suspicious bony lesions. Overlying soft tissues appear unremarkable. IMPRESSION: Enteric tube terminates in the gastric body. Dictated by: Sinan Rhoades M.D. on 02/04/2022 at 13:28 Approved by: Sinan Rhoades M.D. on 02/04/2022 at 13:29
[2022-02-04] MEDS: HYDRALAZINE 20 MG/ML VIAL 5 MG IV ×2 (16:22→17:40)
--- NOTE | 2022-02-04 16:37 | P.PN_ITS ---
Subjective Subjective Date Patient Seen: 02/04/22 Interval history: 56-year-old gentleman with prior hepatitis-C/ HCC status post liver transplant on? cyclosporine and mycophenolate, CKD 4 with baseline creatinine of 3.5, and recent COVID positivity who is presently hospital day 4. Patient remains intubated and sedated. He failed his sedation holiday this morning and became agitated but otherwise was non purposeful. Ammonia level is down to 117. He had 3 loose watery bowel movements overnight. Urine output was approximately 950 in 24 hours despite the Lasix drip. He has also been on IV albumin. He is tolerating trophic feeds. No beds are available at this time at the [facility]. Exam Vital Signs (past 8 hours): - 02/04/22 11:00 02/04/22 09:00 02/04/22 09:00 Temperature 98.3 F Pulse Rate 59 L Respiratory Rate 16 Blood Pressure 146/65 H Pulse Oximetry 100 Oxygen Delivery Method 02/04/22 09:30 02/04/22 10:00 02/04/22 10:00 Temperature Pulse Rate 58 L 60 Respiratory Rate 16 16 Blood Pressure 135/65 Pulse Oximetry 100 100 Oxygen Delivery Method 02/04/22 10:30 02/04/22 11:00 02/04/22 11:00 Temperature Pulse Rate 56 L 58 L Respiratory Rate 16 16 Blood Pressure 143/69 H Pulse Oximetry 100 100 Oxygen Delivery Method 02/04/22 12:00 02/04/22 11:30 02/04/22 12:00 Temperature Pulse Rate 58 L Respiratory Rate 16 Blood Pressure 159/80 H Pulse Oximetry 100 Oxygen Delivery Method Mechanical Ventilation 02/04/22 12:00 02/04/22 12:30 02/04/22 13:00 Temperature Pulse Rate 56 L 56 L Respiratory Rate 16 16 Blood Pressure 167/81 H Pulse Oximetry 100 100 Oxygen Delivery Method 02/04/22 13:00 02/04/22 13:30 02/04/22 14:00 Temperature Pulse Rate 71 71 Respiratory Rate 16 15 Blood Pressure 165/77 H Pulse Oximetry 100 100 Oxygen Delivery Method 02/04/22 14:00 02/04/22 14:30 02/04/22 15:00 Temperature Pulse Rate 63 60 Respiratory Rate 16 16 Blood Pressure 166/77 H Pulse Oximetry 100 100 Oxygen Delivery Method 02/04/22 15:00 02/04/22 15:55 02/04/22 15:30 Temperature Pulse Rate 61 59 L Respiratory Rate 16 16 Blood Pressure Pulse Oximetry 100 100 Oxygen Delivery Method Mechanical Ventilation 02/04/22 16:00 02/04/22 16:00 02/04/22 16:22 Temperature Pulse Rate 59 L 59 L Respiratory Rate 16 Blood Pressure 173/81 H 173/81 H Pulse Oximetry 100 Oxygen Delivery Method Fraction of Inspired Oxygen 40 Oxygen Delivery Method Mechanical Ventilation Oxygen Flow Rate 0 Narrative Exam Narrative: GEN:? sedated and intubated middle aged male, appears critically ill HEENT:NC, Face symmetric CHEST: Respiratory excursions symmetric, CTAB, does not over breathe the ventilator CV: RRR, no M/R/G ABD: Soft, NT/ND,? hypoactive bowel tones in all 4 quadrants, no organomegaly or masses? appreciated EXTR: warm, well perfused, no C/C,? 3 bilateral upper extremity edema, 3+ bilateral flank and hip edema, 2+ edema to the lower extremities SKIN: warm and dry, no rash, pale NEURO:? intubated, sedated, moves extremities Objective Labs Result Diagrams: 02/04/22 04:45 02/04/22 04:45 Labs: Laboratory Results - last 24 hr 02/01/22 02/04/22 02/04/22 21:15 04:45 04:45 WBC 6.1 RBC 2.19 L Hgb 7.0 L Hct 21.2 L MCV 96.4 MCH 32.0 MCHC 33.2 RDW 20.4 H Plt Count 110 L Neut % (Auto) 42.9 L Lymph % (Auto) 43.6 H [place] % (Auto) 9.9 Eos % (Auto) 2.5 Baso % (Auto) 1.1 Neut # (Auto) 2600 Lymph # (Auto) 2700 [place] # (Auto) 600 Eos # (Auto) 200 Baso # (Auto) 100 RBC Morphology See below Hypochromasia 1+ H Anisocytosis 2+ H Target Cells 1+ H Schistocytes 1+ H Sodium Potassium Chloride Carbon Dioxide BUN Creatinine Estimated GFR BUN/Creatinine Ratio Glucose Calcium Magnesium Total Bilirubin Conjugated Bilirubin Unconjugated Bilirubin AST ALT Alkaline Phosphatase Ammonia 117 H Total Protein Albumin Globulin Albumin/Globulin Ratio Cyclosporine 82 L SARS-CoV-2 (PCR) 02/04/22 02/04/22 02/04/22 04:45 04:45 10:51 WBC RBC Hgb Hct MCV MCH MCHC RDW Plt Count Neut % (Auto) Lymph % (Auto) [place] % (Auto) Eos % (Auto) Baso % (Auto) Neut # (Auto) Lymph # (Auto) [place] # (Auto) Eos # (Auto) Baso # (Auto) RBC Morphology Hypochromasia Anisocytosis Target Cells Schistocytes Sodium 135 L Potassium 4.1 Chloride 107 Carbon Dioxide 23 BUN 76 H Creatinine 4.42 H Estimated GFR 15 L BUN/Creatinine Ratio 17.2 Glucose 127 H Calcium 8.4 Magnesium 1.7 Total Bilirubin 0.8 Conjugated Bilirubin 0.0 Unconjugated Bilirubin 0.3 AST 32 ALT 13 Alkaline Phosphatase 183 H Ammonia Total Protein 5.0 L Albumin 2.5 L Globulin 2.5 Albumin/Globulin Ratio 1.0 Cyclosporine SARS-CoV-2 (PCR) Negative PFSH Medical History Cirrhosis of liver CKD (chronic kidney disease) Compression fracture Depression Former smoker GERD (gastroesophageal reflux disease) Gout Hepatitis C (~2011) History of vertebral compression fracture Hypertension Immunosuppression Liver cancer Medical marijuana use GUILLE (obstructive sleep apnea) Osteoporosis PAC (premature atrial contraction) Pain management contract agreement Paroxysmal atrial fibrillation PVC (premature ventricular contraction) Thrombocytopenia Surgical History H/O right wrist surgery History of biliary duct stent placement (01/2013) History of open reduction and internal fixation (ORIF) procedure (09/22/20) History of removal of retained hardware (01/25/21) History of right hip replacement Hx of appendectomy (~1979) Hx of cholecystectomy (~2003) Hx of elbow surgery (~2003) Hx of elbow surgery (~2007) Hx of fusion of cervical spine Hx of hernia repair Hx of shoulder surgery (~2012) Hx of tonsillectomy (~1969) Liver transplant recipient (11/24/11) Presence of left artificial elbow joint Family History Mother Renal failure Father Diabetes mellitus Congestive heart failure Social History household members: none Smoking Status: Former smoker alcohol intake: current Assessment & Plan Assessment & Plan narrative: ?1.? Acute hypoxic respiratory failure Patient is intubated and mechanically ventilated.? Currently sedated with P ropofol and fentanyl..? Ongoing management per bombsight specialist. Has been stable on present vent settings. Will plan repeat chest x-ray in the morning. ? 2.? Acute renal failure in the setting of CKD stage 4 Creatinine is stable at 4.42, it was 4.65 yesterday. BUN remains stable at 76. He continues on albumin infusion for 48 hours total, furosemide drip. Agricultural Equipment Salesperson plans to increase furosemide drip from 15 mg an hour to 20 milligrams/hour and metolazone to 10 mg twice daily. Potassium remains within normal limits at 4.1. ? 3. Hepatic encephalopathy in the setting of previous liver transplant Continue lactulose and rifaximin.? Ammonia level was 192 2 days ago, 136 yesterday and 117 today.? LFTs are presently within normal limits with the exception of an alkaline phosphatase of 183, down from 249 yesterday.? Cyclosporine level presently pending.? Therefore, it has been held due to conc erns of cyclosporine toxicity.? Remains on mycophenolate. Agricultural Equipment Salesperson adding prednisone today due to cyclosporin being held. Patient has a known history of alcohol dependence but his alcohol level was negative on admission. 4. Anemia Hemoglobin has gradually trended down from 10.1 January 18-8.9 on admission. It is now 7.0 down from 8.4 yesterday. There may be a component of hemodilution. Will monitor. Holding transfusion for now. Attempting to minimize volume overall. 5. Thrombocytopenia Platelets are stable at 110. No evidence of bleeding or oozing. 6. GERD? ?on IV famotidine. ?7. Chronic pain with opiate dependence Opiates have been held at this time. He is receiving fentanyl for sedation. ?8. Recent COVID infection No evidence of ongoing active COVID infection. He was initially positive on January 17. Persistently positive February 03. He is 17 days out since diagnosis. I have asked the ICU nurse about whether or not we can discontinue respiratory precautions. 9. History of hepatitis-C and HCC As noted patient is a? liver transplant recipient. ?10. Psychosocial issues Patient is presently homeless without family support. ?code status Full ?prophylaxis On subQ heparin ?disposition Pending transfer to [facility] once an ICU bed is available. Time Spent With Patient Critical Care time: I spent a total of [] minutes of critical care time on this patient's care today; this time is exclusive of procedural time. Quality VTE Deep Vein Thrombosis/Pulmonary Embolism Present on Admission: No
--- NOTE | 2022-02-04 20:17 | PM.ICURNDS ---
- :: This patient was seen via real time interactive two-way audiovisual telecommunication. Note: Pt was seen using the Cam, on vent, comfortable on sedation RASS -2, on lasix drip 20 mg/hr, making about 50 ml/hr, pt was accepted to a higher level of care and will likely be transferred tonight
[2022-02-04] MEDS: metOLazone 2.5 MG TABLET 10 MG TUBE (21:01)
[2022-02-04] MEDS: FUROSEMIDE 100 MG in SODIUM CHLORIDE 0.9% 50 ML 12 MG IV (21:21)
[2022-02-05] MEDS: propofoL 1,000 MG/100 ML VIAL 9.104 MG IV (00:38)
--- NOTE | 2022-02-05 01:08 | PC.NURSE ---
Addendum entered by Glenny Amaya R.N. 02/05/22 01:10: 0100-Verbal consent obtained for transport from patient Next of Kin Leigh Guidry. Original Note: 0045- Report given to EMS transport. Patient assisted to [facility] once drips and Ventilator was set up by transport. Patient tolerated transfer well. Called Report to Leonardo at [facility]. Patient was stable at the time of transport.
[2022-02-07 00:07] LABS: Cyclosporine, Blood 66 ng/mL (100-400)
[2022-02-08 14:21] LABS: COVID19 -Nasal RAPID POSITIVE (Negative)
== END 2022-02-05 00:45 | disposition short-term general hospital (02) | DRG 194 ==
LOC: ED 12:06 → AC 13:50 → ICU 02-03 07:34
PROVIDERS: Emergency Medicine; Family Medicine; Internal Medicine Critical Care Medicine; Nurse Practitioner Family; Admitting Provider Internal Medicine; Emergency Provider Nurse Practitioner Critical Care Medicine; Family Provider Internal Medicine; PCP Internal Medicine; Referring Provider Nurse Practitioner Critical Care Medicine; Visit Provider Internal Medicine
DX: I13.0 Hypertensive heart and chronic kidney disease with heart failure and stage 1 through stage 4 chronic kidney disease, or unspecified chronic kidney disease (principal); N17.9 Acute kidney failure, unspecified; N18.4 Chronic kidney disease, stage 4 (severe); J96.01 Acute respiratory failure with hypoxia; J96.02 Acute respiratory failure with hypercapnia; K72.00 Acute and subacute hepatic failure without coma; I50.9 Heart failure, unspecified; U07.1 COVID-19; K21.9 Gastro-esophageal reflux disease without esophagitis; G89.29 Other chronic pain; F11.20 Opioid dependence, uncomplicated; F32.A Depression, unspecified; M10.9 Gout, unspecified; D64.9 Anemia, unspecified; Z94.4 Liver transplant status; Z87.891 Personal history of nicotine dependence; Z66 Do not resuscitate; Z59.02 Unsheltered homelessness
CPT/HCPCS: 36415; 36569; 36592; 36600; 71045; 71046; 76770; 80048; 80053; 80076; 80158; 81001; 82140; 82550; 82570; 82607; 82805; 82962; 83605; 83735; 83880; 84100; 84300; 84484; 85007; 85025; 85379; 85610; 86140; 87635; 93005; 93306; 93307; 94002; 94003; 94760; 94799; 96374; 96375; 99283; 99284; C9803; G0378; J0330; J0360; J1170; J1630; J1644; J1815; J1940; J2405; J2704; J3010; J3475; J7515; P9041

== ENCOUNTER 2022-02-16 15:52 | Emergency (ER) | payer OTHER, MEDICAID, SELFPAY ==
[2022-02-03 06:25] VITALS: RESP 22
[2022-02-04 19:16] VITALS: PULSE 109; RESP 25; O2SAT 100
[2022-02-16 16:00] VITALS: BP 157/88; PULSE 92; RESP 18; TEMP 37.1; O2SAT 99
--- NOTE | 2022-02-16 16:40 | ED_ITS ---
HPI - Altered Mental Status General Chief Complaint: Weakness Stated Complaint: weakness, altered loc Time Seen by Provider: 02/16/22 16:05 Source: patient Mode of arrival: Family Vehicle History of Present Illness HPI narrative: Patient is a 56-year-old male with history of HCV cirrhosis,HCC recurrent alcohol use, hepatic encephalopathy, recently intubated transferred to [facility] where he left against medical advice on February 11. He was found to have hepato renal syndrome chronic kidney disease. He consistently declined hemodialysis and confirmed with his DPOA his sister. It was noted that he had poor decision making capabilities. He no longer wanted to stay in the hospital. His his urine cultures from February 10 grew Klebsiella resistant to ampicillin and intermediate resistant to Unasyn otherwise sensitive. He left without antibiotics. Physician from [facility] tried contacting him. Outside community support person found him today outside of his hotel. Noted that he has to be slightly confused. Patient reports falling a couple of times. He states that he left the [facility] he did feel like he needed any more care. He denies any injury. He has no pain. He is excited because he just got the title to the her home back. >100,000 Col/mL Klebsiella oxytoca or Raoultella species Testing method does not distinguish between these organisms Susceptibility Klebsiella oxytoca or raoultella species MICROTITER ERIN (MCG/ML)-SELECT Ampicillin Resistant Ampicillin/sulbactam Intermediate. Aztreonam Susceptible Cefazolin Susceptible Cefepime Susceptible Cefotetan Susceptible Ceftazidime Susceptible Ceftriaxone Susceptible Ciprofloxacin Susceptible Doxycycline Susceptible Ertapenem Susceptible Gentamicin Susceptible Levofloxacin Susceptible0 Meropenem Susceptible Moxifloxacin - Nitrofurantoin Susceptible Piperacillin/tazobactam Susceptible Trimeth_Sulfamethoxazole Susceptible Related Data Home Medications Medication Instructions Recorded Confirmed allopurinol 100 mg tablet 100 mg PO DAILY 01/14/20 02/01/22 cyclosporine modified 25 mg capsule 25 mg PO BID 01/14/20 02/03/22 duloxetine 20 mg capsule,delayed 20 mg PO DAILY 01/14/20 02/03/22 release (Cymbalta) fentanyl 25 mcg/hr transdermal 25 mcg topical Q72H 01/14/20 02/01/22 patch (Duragesic) gabapentin 300 mg capsule 300 mg PO BID 01/14/20 02/03/22 hydroxyzine pamoate 25 mg capsule 25 mg PO BEDTIME PRN Itching 01/14/20 07/01/21 (Vistaril) lidocaine 5 % topical patch 1 patch topical DAILY 01/14/20 07/04/21 (Lidoderm) mycophenolate mofetil 500 mg 500 mg PO BID 01/14/20 07/01/21 tablet (CellCept) pyridoxine (vitamin B6) 100 mg 100 mg PO DAILY 01/14/20 05/09/21 tablet quetiapine 25 mg tablet (Seroquel) 25 mg PO BEDTIME 01/14/20 02/03/22 ursodiol 300 mg capsule 300 mg PO BID 01/14/20 02/03/22 vitamin B complex-vitamin C-folic 1 tab PO DAILY 01/14/20 05/09/21 acid 0.8 mg tablet (Kellie-Ramila) rifaximin 550 mg tablet (Xifaxan) 550 mg PO BID 09/20/20 02/03/22 metoprolol succinate 25 mg 25 mg PO DAILY 01/25/21 02/03/22 tablet,extended release 24 hr tamsulosin 0.4 mg capsule 0.4 mg PO BEDTIME 04/27/21 02/03/22 Previous Rx's Medication Instructions Recorded pantoprazole 40 mg tablet,delayed 40 mg PO DAILY #30 tabs 05/14/20 release (Protonix) hydromorphone 4 mg tablet 4 mg PO Q6H PRN pain #30 tabs 09/24/20 naloxone 4 mg/actuation nasal 1 spray intranasal PER PKG DIR 30 09/29/20 spray (Narcan) days #1 ea aspirin 81 mg tablet,delayed 81 mg PO BID #90 tabs 05/11/21 release oxycodone 10 mg tablet 10 mg PO Q3HR PRN Pain, Severe 05/11/21 (7-10) #60 tabs lactulose 20 gram/30 mL oral 30 gm PO TID #11,000 mL 07/05/21 solution diphenhydramine HCl 12.5 mg/5 mL 25 mg (10 mL) PO Q4-6H PRN nausea 07/06/21 oral liquid (Benadryl Allergy) and vomiting #200 mL famotidine 20 mg tablet (Pepcid AC) 20 mg PO BEDTIME #120 tabs 07/06/21 losartan 25 mg tablet 25 mg PO DAILY #60 tabs 07/06/21 nifedipine 30 mg tablet,extended 30 mg PO DAILY #60 tabs 07/06/21 release 24 hr sucralfate 1 gram tablet 1 gm PO ACHS #240 tabs 07/06/21 furosemide 40 mg tablet (Lasix) 40 mg PO DAILY #5 tabs 01/17/22 lactulose 20 gram oral packet 20 g PO BID #1 ea 01/17/22 cephalexin 500 mg capsule 500 mg PO BID 7 days #14 caps 02/16/22 lactulose 20 gram/30 mL oral 20 g (30 mL) PO BID #1,200 mL 02/16/22 solution Allergies Allergy/AdvReac Type Severity Reaction Status Date / Time adhesive tape Allergy Severe Paper Verified 02/16/22 16:04 tape causes big sores doxylamine [From NyQuil] Allergy Severe Seizure Verified 02/16/22 16:04 venom-honey bee Allergy Severe Wheezing, Verified 02/16/22 16:04 [BEE VENOM (HONEY BEE)] throat closing pseudoephedrine Allergy Pt does Verified 02/16/22 16:04 not recall codeine AdvReac Severe Vomiting Verified 02/16/22 16:04 dextromethorphan AdvReac Severe Seizure Verified 02/16/22 16:04 NSAIDS (Non-Steroidal AdvReac Severe Abdominal Verified 02/16/22 16:04 Anti-Inflamma Pain copper AdvReac Intermediate Soaks Verified 02/16/22 16:04 into my body and hurts my jaw and joints morphine AdvReac Intermediate Vomiting Verified 02/16/22 16:04 oxycodone AdvReac Intermediate Vomiting Verified 02/16/22 16:04 tizanidine AdvReac Unknown Pt does Verified 02/01/22 11:14 not recall Review of Systems Review of Systems Narrative: GENERAL: See HPI HEENT: Denies sinus pain, ear pain, sore throat, difficulty swallowing, neck pain RESPIRATORY: Denies dyspnea, cough, wheezing, hemoptysis, sputum. CARDIOVASCULAR: Denies chest pain, palpitations, orthopnea, edema GASTROINTESTINAL: Denies nausea, vomiting, abdominal pain, diarrhea, constipation, melena. : Denies dysuria, frequency, incontinence, hematuria, urinary retention, flank pain. MUSCULOSKELETAL: Denies weakness, joint pain, or bony pain SKIN: No rash, no erythema, no pruritus NEUROLOGIC: Denies weakness, dizziness, headache, numbness, change in speech, confusion PSYCHIATRIC: No concerning psychosocial issues. 12 point review of systems is negative except for those stated above and HPI Patient History Medical History Cirrhosis of liver CKD (chronic kidney disease) Compression fracture Depression Former smoker GERD (gastroesophageal reflux disease) Gout Hepatitis C (~2011) History of vertebral compression fracture Hypertension Immunosuppression Liver cancer Medical marijuana use GUILLE (obstructive sleep apnea) Osteoporosis PAC (premature atrial contraction) Pain management contract agreement Paroxysmal atrial fibrillation PVC (premature ventricular contraction) Thrombocytopenia Surgical History H/O right wrist surgery History of biliary duct stent placement (01/2013) History of open reduction and internal fixation (ORIF) procedure (09/22/20) History of removal of retained hardware (01/25/21) History of right hip replacement Hx of appendectomy (~1979) Hx of cholecystectomy (~2003) Hx of elbow surgery (~2003) Hx of elbow surgery (~2007) Hx of fusion of cervical spine Hx of hernia repair Hx of shoulder surgery (~2012) Hx of tonsillectomy (~1969) Liver transplant recipient (11/24/11) Presence of left artificial elbow joint Family History Mother Renal failure Father Diabetes mellitus Congestive heart failure Social History household members: none Smoking Status: Former smoker alcohol intake: current Smoking Status: Former smoker tobacco type: cigarettes alcohol intake frequency: a few times a month Alcohol type: hard liquor Substance Use Type: marijuana Exam Initial Vital Signs Initial Vital Signs: Vital Signs Temperature 98.8 F 02/16/22 16:00 Pulse Rate 92 H 02/16/22 16:00 Respiratory Rate 18 02/16/22 16:00 Blood Pressure 157/88 H 02/16/22 16:00 Pulse Oximetry 99 02/16/22 16:00 Oxygen Delivery Method 02/16/22 16:00 GENERAL: Alert pleasant well-appearing 56-year-old male HEENT: Head atraumatic,EOMI, pupils reactive, face symmetric, moist mucous membranes CARDIOVASCULAR: Regular rate and rhythm without murmurs, rubs or gallops. RESPIRATORY: Breath sounds equal bilaterally, no wheezes rales or rhonchi. ABDOMEN: Soft, nontender. Normoactive bowel sounds all 4 quadrants. No guarding or rebound. EXTREMITIES: Normal range of motion, no clubbing or edema. Neurovascularly intact NEUROLOGICAL: Alert and oriented x4.Normal gait and speech. Bead Supervisor strength equal bilaterally no asterixis SKIN: Warm, dry, no laceration, no petechiae, no rashes or lesions. No appreciable jaundice Course Orders Ordered: Discontinued Medications Sodium Chloride (Normal Saline 0.9%) 1,000 mls @ 150 mls/hr IV CONT JUNIOR Last Infusion: 02/16/22 18:01 Dose: 0 mls/hr Documented By: Admin: 02/16/22 17:00 Dose: 150 mls/hr Documented By: NR Ceftriaxone Sodium 1,000 mg/ (Sodium Chloride) 100 mls @ 200 mls/hr IV NOW ONE Stop: 02/16/22 16:55 Last Infusion: 02/16/22 18:01 Dose: 0 mls/hr Documented By: Admin: 02/16/22 17:00 Dose: 200 mls/hr Documented By: NR Lactulose (Lactulose 20 Gm/30 Ml Solution) 20 gm PO NOW ONE Stop: 02/16/22 17:35 Last Admin: 02/16/22 17:50 Dose: 20 gm Documented By: NR Vital Signs Vital signs: Vital Signs - 8 hr 02/16/22 16:00 Temperature 98.8 F Pulse Rate 92 H Respiratory Rate 18 Blood Pressure 157/88 H Pulse Oximetry 99 Oxygen Delivery Method Room Air MDM - Altered Mental Status Lab Data Result diagrams: 02/16/22 16:22 02/16/22 16:22 Labs: Lab Results 02/16/22 02/16/22 02/16/22 Range/Units 16:22 16:22 16:22 WBC 8.2 (4.5-11.0) X10^3/uL RBC 2.32 L (4.5-5.9) X10^6/uL Hgb 7.5 L (13.5-17.5) g/dL Hct 22.6 L (41-53) % MCV 97.4 (80-100) fL MCH 32.2 (26-34) PG MCHC 33.1 (30-36) % RDW 20.2 H (11.6-14.8) % Plt Count 155 (150-400) X10^3/uL Neut % (Auto) 57.6 (50-75) % Lymph % (Auto) 29.1 (25-40) % [place] % (Auto) 10.4 (3-14) % Eos % (Auto) 2.4 (2-4) % Baso % (Auto) 0.5 (0-2) % Neut # (Auto) 4700 (9552-9472) /uL Lymph # (Auto) 2400 (5946-3608) /uL [place] # (Auto) 900 (0-900) /uL Eos # (Auto) 200 (0-450) /uL Baso # (Auto) 0 (0-100) /uL RBC Morphology See below Hypochromasia 1+ H Anisocytosis 2+ H Macrocytosis 1+ H Target Cells 1+ H PT (10.1-12.7) SECONDS INR (0.9-1.3) APTT (26.4-36.2) SECONDS Sodium 135 L (137-145) mmol/L Potassium 4.0 (3.4-5.1) mmol/L Chloride 103 (98-107) mmol/L Carbon Dioxide 19 L (22-32) mmol/L BUN 112 H* (9-20) mg/dL Creatinine 4.59 H (0.66-1.25) mg/dL Estimated GFR 14 L (>60) mL/min BUN/Creatinine Ratio 24.4 H (6-22) Glucose 147 H (70-100) mg/dL Lactate (0.7-2.1) mmol/L Calcium 8.8 (8.4-10.2) mg/dL Total Bilirubin 1.2 (0.2-1.3) mg/dL AST 29 (17-59) IU/L ALT 12 (<50) IU/L Alkaline Phosphatase 254 H (38-126) U/L Ammonia 94 H (9-30) umol/L Total Creatine Kinase (55-170) U/L CK-MB (CK-2) CK-MB (CK-2) Rel Index Troponin I (0.01-0.034) ng/mL Total Protein 5.7 L (6.3-8.2) g/dL Albumin 2.8 L (3.5-5.0) g/dL Globulin 2.9 (1.7-4.1) g/dL Albumin/Globulin Ratio 1.0 (1.0-2.8) Lipase 13 L (23-300) U/L Procalcitonin (<0.5) ng/mL TSH (0.47-4.68) uIU/mL Urine Color Urine Appearance Urine pH (4.5-8.0) Ur Specific [place] (1.000-1.035) Urine Protein (Negative) Urine Glucose (UA) (Negative) g/dL Urine Ketones (NEGATIVE) Urine Occult Blood (Negative) Urine Nitrate (Negative) Urine Bilirubin (NEGATIVE) Urine Urobilinogen (0.2) E.U./dL Ur Leukocyte Esterase (NEGATIVE) Urine RBC (0-5/HPF) Urine WBC (0-5/HPF) Ur Squamous Epith Cells (0-5/HPF) Amorphous Sediment Urine Bacteria (None) Ur Culture Indicated? Salicylates (<20) mg/dL U Opiates 300ng/mL cut (Negative) Ur Oxycodone Screen (Negative) Urine Methadone Screen (Negative) Acetaminophen (10-30) ug/mL Ur Barbiturates Screen (Negative) U Tricyclic Antidepress (Negative) Ur Phencyclidine Scrn (Negative) Ur Amphetamines Screen (Negative) U Methamphetamines Scrn (Negative) Ur MDMA Scrn (Ecstasy) (Negative) U Benzodiazepines Scrn (Negative) Urine Cocaine Screen (Negative) U Marijuana (THC) Screen (Negative) Ethyl Alcohol ( - 10) mg/dL 02/16/22 02/16/22 02/16/22 Range/Units 16:22 16:22 16:22 WBC (4.5-11.0) X10^3/uL RBC (4.5-5.9) X10^6/uL Hgb (13.5-17.5) g/dL Hct (41-53) % MCV (80-100) fL MCH (26-34) PG MCHC (30-36) % RDW (11.6-14.8) % Plt Count (150-400) X10^3/uL Neut % (Auto) (50-75) % Lymph % (Auto) (25-40) % [place] % (Auto) (3-14) % Eos % (Auto) (2-4) % Baso % (Auto) (0-2) % Neut # (Auto) (9579-7468) /uL Lymph # (Auto) (9696-3937) /uL [place] # (Auto) (0-900) /uL Eos # (Auto) (0-450) /uL Baso # (Auto) (0-100) /uL RBC Morphology Hypochromasia Anisocytosis Macrocytosis Target Cells PT 11.3 (10.1-12.7) SECONDS INR 1.0 (0.9-1.3) APTT 34 (26.4-36.2) SECONDS Sodium (137-145) mmol/L Potassium (3.4-5.1) mmol/L Chloride (98-107) mmol/L Carbon Dioxide (22-32) mmol/L BUN (9-20) mg/dL Creatinine (0.66-1.25) mg/dL Estimated GFR (>60) mL/min BUN/Creatinine Ratio (6-22) Glucose (70-100) mg/dL Lactate 1.4 (0.7-2.1) mmol/L Calcium (8.4-10.2) mg/dL Total Bilirubin (0.2-1.3) mg/dL AST (17-59) IU/L ALT (<50) IU/L Alkaline Phosphatase (38-126) U/L Ammonia (9-30) umol/L Total Creatine Kinase 76 (55-170) U/L CK-MB (CK-2) TNP CK-MB (CK-2) Rel Index TNP Troponin I 0.038 H (0.01-0.034) ng/mL Total Protein (6.3-8.2) g/dL Albumin (3.5-5.0) g/dL Globulin (1.7-4.1) g/dL Albumin/Globulin Ratio (1.0-2.8) Lipase (23-300) U/L Procalcitonin 0.36 (<0.5) ng/mL TSH (0.47-4.68) uIU/mL Urine Color Urine Appearance Urine pH (4.5-8.0) Ur Specific [place] (1.000-1.035) Urine Protein (Negative) Urine Glucose (UA) (Negative) g/dL Urine Ketones (NEGATIVE) Urine Occult Blood (Negative) Urine Nitrate (Negative) Urine Bilirubin (NEGATIVE) Urine Urobilinogen (0.2) E.U./dL Ur Leukocyte Esterase (NEGATIVE) Urine RBC (0-5/HPF) Urine WBC (0-5/HPF) Ur Squamous Epith Cells (0-5/HPF) Amorphous Sediment Urine Bacteria (None) Ur Culture Indicated? Salicylates < 1.0 (<20) mg/dL U Opiates 300ng/mL cut (Negative) Ur Oxycodone Screen (Negative) Urine Methadone Screen (Negative) Acetaminophen < 10 (10-30) ug/mL Ur Barbiturates Screen (Negative) U Tricyclic Antidepress (Negative) Ur Phencyclidine Scrn (Negative) Ur Amphetamines Screen (Negative) U Methamphetamines Scrn (Negative) Ur MDMA Scrn (Ecstasy) (Negative) U Benzodiazepines Scrn (Negative) Urine Cocaine Screen (Negative) U Marijuana (THC) Screen (Negative) Ethyl Alcohol < 10 ( - 10) mg/dL 02/16/22 02/16/22 02/16/22 Range/Units 16:22 19:03 19:03 WBC (4.5-11.0) X10^3/uL RBC (4.5-5.9) X10^6/uL Hgb (13.5-17.5) g/dL Hct (41-53) % MCV (80-100) fL MCH (26-34) PG MCHC (30-36) % RDW (11.6-14.8) % Plt Count (150-400) X10^3/uL Neut % (Auto) (50-75) % Lymph % (Auto) (25-40) % [place] % (Auto) (3-14) % Eos % (Auto) (2-4) % Baso % (Auto) (0-2) % Neut # (Auto) (0213-7007) /uL Lymph # (Auto) (9104-5510) /uL [place] # (Auto) (0-900) /uL Eos # (Auto) (0-450) /uL Baso # (Auto) (0-100) /uL RBC Morphology Hypochromasia Anisocytosis Macrocytosis Target Cells PT (10.1-12.7) SECONDS INR (0.9-1.3) APTT (26.4-36.2) SECONDS Sodium (137-145) mmol/L Potassium (3.4-5.1) mmol/L Chloride (98-107) mmol/L Carbon Dioxide (22-32) mmol/L BUN (9-20) mg/dL Creatinine (0.66-1.25) mg/dL Estimated GFR (>60) mL/min BUN/Creatinine Ratio (6-22) Glucose (70-100) mg/dL Lactate (0.7-2.1) mmol/L Calcium (8.4-10.2) mg/dL Total Bilirubin (0.2-1.3) mg/dL AST (17-59) IU/L ALT (<50) IU/L Alkaline Phosphatase (38-126) U/L Ammonia (9-30) umol/L Total Creatine Kinase (55-170) U/L CK-MB (CK-2) CK-MB (CK-2) Rel Index Troponin I (0.01-0.034) ng/mL Total Protein (6.3-8.2) g/dL Albumin (3.5-5.0) g/dL Globulin (1.7-4.1) g/dL Albumin/Globulin Ratio (1.0-2.8) Lipase (23-300) U/L Procalcitonin (<0.5) ng/mL TSH 2.99 (0.47-4.68) uIU/mL Urine Color Yellow Urine Appearance Sl cloudy Urine pH 5.5 (4.5-8.0) Ur Specific [place] 1.010 (1.000-1.035) Urine Protein 2+ H (Negative) Urine Glucose (UA) Negative (Negative) g/dL Urine Ketones Negative (NEGATIVE) Urine Occult Blood 3+ H (Negative) Urine Nitrate Negative (Negative) Urine Bilirubin Negative (NEGATIVE) Urine Urobilinogen 0.2 (0.2) E.U./dL Ur Leukocyte Esterase Trace H (NEGATIVE) Urine RBC 30-100/hpf H (0-5/HPF) Urine WBC 10-30/hpf H (0-5/HPF) Ur Squamous Epith Cells 1-5 /hpf (0-5/HPF) Amorphous Sediment 1+ Urine Bacteria Occasional (0-1) (None) Ur Culture Indicated? Culture not indicate Salicylates (<20) mg/dL U Opiates 300ng/mL cut Negative (Negative) Ur Oxycodone Screen Negative (Negative) Urine Methadone Screen Negative (Negative) Acetaminophen (10-30) ug/mL Ur Barbiturates Screen Negative (Negative) U Tricyclic Antidepress Negative (Negative) Ur Phencyclidine Scrn Negative (Negative) Ur Amphetamines Screen Negative (Negative) U Methamphetamines Scrn Negative (Negative) Ur MDMA Scrn (Ecstasy) Negative (Negative) U Benzodiazepines Scrn Negative (Negative) Urine Cocaine Screen Negative (Negative) U Marijuana (THC) Screen Positive H (Negative) Ethyl Alcohol ( - 10) mg/dL Imaging Data CT scan - head: Radiologist's Impression: Signed Patient: Earnest Wilks MR#: [id number] : 1965 Acct:[id number] Age/Sex: 56 / M Date of Service: 02/16/22 Loc: ED Accession Number: [id number] ?? Procedure: CT head/brain wo con Ordering Provider: Mei Akhtar D.O. PROCEDURE:? CT HEAD/BRAIN WO CON ? INDICATIONS:? falls ? TECHNIQUE:? Noncontrast 4.5 mm thick angled axial sections acquired from the foramen magnum to the vertex, with coronal and sagittal reformats.? For radiation dose reduction, the following was used:? automated exposure control, adjustment of mA and/or kV according to patient size.? ? COMPARISON:? [facility], CT, CT HEAD/BRAIN WO CON, 11/26/2021, 3:09. ? FINDINGS:? Image quality:? Excellent.? ? CSF spaces:? Basal cisterns are patent.? No extra-axial fluid collections.? Ventricles are normal in size and shape.? ? Brain:? No midline shift.? No intracranial masses or hemorrhage.? No area of hypodensity in a large vascular distribution to suggest acute infarction. Periventricular hypodensity consistent with chronic microvascular ischemic change. Age-related parenchymal loss. ? Skull and face:? Calvarium and visualized facial bones are intact, without susp icious lesions.? ? Sinuses:? Visualized sinuses are clear.? Opacification of the right mastoid air cells. ? IMPRESSION:? No acute intracranial abnormality. ? Opacification of the right mastoid air cells.? This is a nonspecific finding but could be seen in mastoiditis.? Hemorrhage is also a possibility but felt to be less likely given the absence of a conspicuous fracture.? ? ? Dictated by: Aj Doyle M.D. on 02/16/2022 at 17:59 ? ? Approved by: Aj Doyle M.D. on 02/16/2022 at 18:02 ? [facility] Narrative Medical decision making narrative: Discharge summary from [facility] has been reviewed. Patient did leave Against Medical Advice. It was encouraged is that he should have dialysis. At that time he declined HD and that was confirmed with his sister. The patient was called today because it was found he has a Klebsiella UTI and need antibiotics. Fortunately it is susceptible to many antibiotics. He is given a dose of IV Rocephin here in the ED. He is not septic. He is awake alert and talking. His ammonia level his 94 which is lower than what it has been previously. He states he is taking his lactulose as. He is given an extra dose of lactulose here in the ED. He is quite adamant about leaving. Blood work actually appears stable, certainly abnormal. Chronic kidney disease noted. His head CT is negative no sign of trauma. There is concern that patient cannot properly care for himself. He apparently just got the tidal back for his mobile home and now has a place to live. I again discussed with him need for dialysis. He does not get dialysis it may lead to . He understands this. He is actually reconsidering dialysis now. But not sure he understands full implications or consequences. Leigh- sister can't find [facility] paperwork, we discussed her reaching out to him she says she has not spoken to him. At this time patient certainly does not meet involuntary criteria he is able to ambulate and care for himself I do question some of his understanding, however may need a capacity evaluation as an outpatient. Significant critical bed shortage. Patient does have a UTI at this point can be treated as an outpatient we will culture and sensitivity from the [facility]. Patient has community out reach with [facility]. Discharge Plan Departure Patient Disposition: Home Clinical Impression: Acute UTI, CKD (chronic kidney disease), Hepatic failure, acute Instructions: Hemodialysis, DI for Urinary Tract Infection (UTI) Activity Restrictions/Additional Instructions: *You have been diagnosed with bladder infection, chronic kidney disease *What to do: I strongly encourage you to reconsider your dialysis decision. *Continue to take medications as directed Keflex 500 mg 3 times a day for 7 days--> SENT TO [email or web address] Please continue to take her lactulose *Follow up with your primary care provider in 2-3 days or call [phone] *Return to ER if you should have increased confusion, increased falls, or any new, worsening or concerning symptoms Prescriptions: New cephalexin 500 mg capsule 500 mg PO BID 7 Days Qty: 14 0RF lactulose 20 gram/30 mL solution 20 g PO BID Qty: 1200 0RF No Action tamsulosin 0.4 mg Capsule 0.4 mg PO BEDTIME aspirin 81 mg Tablet,Delayed Release (Dr/Ec) 81 mg PO BID Qty: 90 0RF oxycodone 10 mg Tablet 10 mg PO Q3HR PRN (Reason: Pain, Severe (7-10)) Qty: 60 0RF lactulose 20 gram/30 mL Solution 30 gm PO TID Qty: 60773 0RF sucralfate 1 gram Tablet 1 gm PO ACHS Qty: 240 0RF famotidine [Pepcid AC] 20 mg Tablet 20 mg PO BEDTIME Qty: 120 0RF diphenhydramine HCl [Benadryl Allergy] 12.5 mg/5 mL liquid 25 mg PO Q4-6H PRN (Reason: nausea and vomiting) Qty: 200 0RF nifedipine 30 mg Tablet Extended Release 24hr 30 mg PO DAILY Qty: 60 0RF losartan 25 mg Tablet 25 mg PO DAILY Qty: 60 0RF furosemide [Lasix] 40 mg tablet 40 mg PO DAILY Qty: 5 0RF lactulose 20 gram packet 20 g PO BID Qty: 1 0RF quetiapine [Seroquel] 25 mg Tablet 25 mg PO BEDTIME cyclosporine modified 25 mg Capsule 25 mg PO BID allopurinol 100 mg Tablet 100 mg PO DAILY mycophenolate mofetil [CellCept] 500 mg Tablet 500 mg PO BID lidocaine [Lidoderm] 5 % Adhesive Patch,Medicated 1 patch TOPICAL DAILY ursodiol 300 mg Capsule 300 mg PO BID gabapentin 300 mg Capsule 300 mg PO BID Kellie-Ramila 0.8 mg Tablet 1 tab PO DAILY pyridoxine (vitamin B6) 100 mg Tablet 100 mg PO DAILY fentanyl [Duragesic] 25 mcg/hr Patch 72 Hour 25 mcg topical Q72H hydroxyzine pamoate [Vistaril] 25 mg Capsule 25 mg PO BEDTIME PRN (Reason: Itching) duloxetine [Cymbalta] 20 mg Capsule,Delayed Release(Dr/Ec) 20 mg PO DAILY pantoprazole [Protonix] 40 mg tablet,delayed release (DR/EC) 40 mg PO DAILY Qty: 30 0RF Xifaxan 550 mg Tablet 550 mg PO BID hydromorphone 4 mg tablet 4 mg PO Q6H PRN (Reason: pain) Qty: 30 0RF Narcan 4 mg/actuation [place],Non-Aerosol 1 spray INTRANASAL PER PKG DIR 30 Days Qty: 1 0RF Label Comments: patient has never used before Rx Instructions: 1 spray q2 minutes for opiate overdose metoprolol succinate 25 mg tablet extended release 24 hr 25 mg PO DAILY Referrals: Kevin Porter MD [Primary Care Provider] - Visit Report Forms: Patient Portal/API
[2022-02-16 16:46] LABS: Prothrombin Time 11.3 SECONDS (10.1-12.7)
[2022-02-16 16:48] LABS: PTT Partial Thromboplastin Tim 34 SECONDS (26.4-36.2)
[2022-02-16 16:49] LABS: Add Manual Diff / Slide Review NO; Basophils Absolute Auto 0 /uL (0-100); Basophils Percent Auto 0.5 % (0-2); Eosinophils Absolute Auto 200 /uL (0-450); Eosinophils Percent Auto 2.4 % (2-4); Hematocrit 22.6 % (41-53); Hemoglobin 7.5 g/dL (13.5-17.5); Lymphocytes Absolute Auto 2400 /uL (1100-4500); Lymphocytes Percent Auto 29.1 % (25-40); Mean Corpuscular HGB Conc 33.1 % (30-36); Mean Corpuscular Hemoglobin 32.2 PG (26-34); Mean Corpuscular Volume 97.4 fL (80-100); Monocytes Absolute Auto 900 /uL (0-900); Monocytes Percent Auto 10.4 % (3-14); Neutrophils Absolute Auto 4700 /uL (1500-7000); Neutrophils Percent Auto 57.6 % (50-75); Platelet Count 155 X10^3/uL (150-400); Red Blood Cell Count 2.32 X10^6/uL (4.5-5.9); Red Cell Distribution Width 20.2 % (11.6-14.8); White Blood Cell Count 8.2 X10^3/uL (4.5-11.0)
[2022-02-16 16:51] LABS: Ammonia (NH3) 94 umol/L (9-30); Lactate (Lactic Acid) 1.4 mmol/L (0.7-2.1)
[2022-02-16 16:54] LABS: Alanine Aminotransferase 12 IU/L (<50); Albumin 2.8 g/dL (3.5-5.0); Alkaline Phosphatase 254 U/L (38-126); Aspartate Aminotransferase 29 IU/L (17-59); BUN Creatinine Ratio 24.4 (6-22); Bilirubin Total 1.2 mg/dL (0.2-1.3); Calcium 8.8 mg/dL (8.4-10.2); Carbon Dioxide 19 mmol/L (22-32); Chloride 103 mmol/L (98-107); Creatine Kinase 76 U/L (55-170); Estimated Glomerular Filt Rate 14 mL/min (>60); Globulin 2.9 g/dL (1.7-4.1); Glucose 147 mg/dL (70-100); HEMOLYSIS 26 (0-50); Lipase 13 U/L (23-300); Sodium 135 mmol/L (137-145); Total Protein 5.7 g/dL (6.3-8.2)
[2022-02-16 16:57] LABS: Blood Urea Nitrogen 112 mg/dL (9-20)
[2022-02-16] MEDS: SODIUM CHLORIDE 0.9% 1,000 ML 150 ML IV (17:00)
[2022-02-16] MEDS: cefTRIAXone 1,000 MG in SODIUM CHLORIDE 0.9% 100 ML 200 MG IV (17:00)
[2022-02-16 17:07] LABS: Troponin I 0.038 ng/mL (0.01-0.034)
[2022-02-16 17:12] LABS: Procalcitonin 0.36 ng/mL (<0.5)
[2022-02-16 17:23] LABS: Anisocytosis 2+; Hypochromasia 1+; Macrocytosis 1+; Target Cells 1+
--- NOTE | 2022-02-16 17:33 | DI.CT.S_ITS ---
PROCEDURE: CT HEAD/BRAIN WO CON INDICATIONS: falls TECHNIQUE: Noncontrast 4.5 mm thick angled axial sections acquired from the foramen magnum to the vertex, with coronal and sagittal reformats. For radiation dose reduction, the following was used: automated exposure control, adjustment of mA and/or kV according to patient size. COMPARISON: Merged With [facility], CT, CT HEAD/BRAIN WO CON, 11/26/2021, 3:09. FINDINGS: Image quality: Excellent. CSF spaces: Basal cisterns are patent. No extra-axial fluid collections. Ventricles are normal in size and shape. Brain: No midline shift. No intracranial masses or hemorrhage. No area of hypodensity in a large vascular distribution to suggest acute infarction. Periventricular hypodensity consistent with chronic microvascular ischemic change. Age-related parenchymal loss. Skull and face: Calvarium and visualized facial bones are intact, without suspicious lesions. Sinuses: Visualized sinuses are clear. Opacification of the right mastoid air cells. IMPRESSION: No acute intracranial abnormality. Opacification of the right mastoid air cells. This is a nonspecific finding but could be seen in mastoiditis. Hemorrhage is also a possibility but felt to be less likely given the absence of a conspicuous fracture. Dictated by: Aj Doyle M.D. on 02/16/2022 at 17:59 Approved by: Aj Doyle M.D. on 02/16/2022 at 18:02
[2022-02-16 17:41] LABS: Thyroid Stimulating Hormone 2.99 uIU/mL (0.47-4.68)
[2022-02-16] MEDS: LACTULOSE 20 GM/30 ML SOLUTION PO (17:50)
[2022-02-16 18:37] LABS: Acetaminophen < 10 ug/mL (10-30); Ethanol (ETOH) < 10 mg/dL; Salicylate < 1.0 mg/dL (<20)
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
[2022-02-16 19:16] LABS: Ur Creatinine Normal (Normal); Ur Specific Gravity Normal (Normal); Urine pH Normal (Normal)
[2022-02-16 19:17] LABS: UR Morphine/Opiate cutoff 300 Negative (Negative); Urine Amphetamines Negative (Negative); Urine Barbiturates Negative (Negative); Urine Benzodiazepines Negative (Negative); Urine Cocaine Negative (Negative); Urine MDMA Negative (Negative); Urine Methadone Negative (Negative); Urine Methamphetamines Negative (Negative); Urine Oxycodone Negative (Negative); Urine Phencyclidine Negative (Negative); Urine Tetrahydrocannabinol Positive (Negative); Urine Tricyclic Antidepressant Negative (Negative)
[2022-02-16 19:19] LABS: Appearance Urine UA SL CLOUDY; Bilirubin Urine UA NEGATIVE (NEGATIVE); Color Urine UA YELLOW; Glucose Urine UA NEGATIVE (Negative); Ketones Urine UA NEGATIVE (NEGATIVE); Leukocyte Esterase Urine UA TRACE (NEGATIVE); Nitrite Urine UA NEGATIVE (Negative); Occult Blood Urine UA 3+ (Negative); Protein Urine UA 2+ (Negative); Urobilinogen Urine UA 0.2 E.U./dL (0.2); pH Urine UA 5.5 (4.5-8.0)
[2022-02-16 19:25] LABS: Amorphous Sediment Urine 1+; Bacteria Urine Occasional (0-1); RBC Urine 30-100/HPF (0-5/HPF); Squamous Epithelial Cell Urine 1-5 /HPF (0-5/HPF); WBC Urine 10-30/HPF (0-5/HPF)
== END 2022-02-16 19:04 | disposition home or self-care (01) ==
PROVIDERS: Emergency Provider Emergency Medicine; Family Provider Internal Medicine; PCP Internal Medicine
DX: N39.0 Urinary tract infection, site not specified (principal); N18.9 Chronic kidney disease, unspecified; K72.00 Acute and subacute hepatic failure without coma
CPT/HCPCS: 36415; 70450; 80053; 80305; 80320; 80329; 81001; 82140; 82550; 83605; 83690; 84145; 84443; 84484; 85025; 85610; 85730; 87040; 87086; 93005; 93010; 96365; 99284; G0480; J0696

== ENCOUNTER → 2022-02-27 10:12 | Outpatient (CLI) | payer OTHER, MEDICAID, SELFPAY ==
[2022-02-01 17:43] VITALS: BMI 35.9
[2022-02-03 06:25] VITALS: RESP 22
[2022-02-04 19:16] VITALS: PULSE 109; RESP 25; O2SAT 100
[2022-02-27 12:05] LABS: Ammonia (NH3) 112 umol/L (9-30)
[2022-02-27 12:24] LABS: Add Manual Diff / Slide Review NO; Basophils Absolute Auto 0 /uL (0-100); Basophils Percent Auto 0.5 % (0-2); Eosinophils Absolute Auto 100 /uL (0-450); Eosinophils Percent Auto 1.5 % (2-4); Hematocrit 23.4 % (41-53); Hemoglobin 7.7 g/dL (13.5-17.5); Lymphocytes Absolute Auto 4000 /uL (1100-4500); Lymphocytes Percent Auto 59.9 % (25-40); Mean Corpuscular HGB Conc 32.9 % (30-36); Mean Corpuscular Hemoglobin 32.5 PG (26-34); Mean Corpuscular Volume 98.9 fL (80-100); Monocytes Absolute Auto 800 /uL (0-900); Monocytes Percent Auto 11.3 % (3-14); Neutrophils Absolute Auto 1800 /uL (1500-7000); Neutrophils Percent Auto 26.8 % (50-75); Platelet Count 175 X10^3/uL (150-400); Red Blood Cell Count 2.37 X10^6/uL (4.5-5.9); Red Cell Distribution Width 19.5 % (11.6-14.8); White Blood Cell Count 6.7 X10^3/uL (4.5-11.0)
[2022-02-27 13:06] LABS: Alanine Aminotransferase 11 IU/L (<50); Albumin 2.8 g/dL (3.5-5.0); Albumin Globulin Ratio 0.9 (1.0-2.8); Alkaline Phosphatase 221 U/L (38-126); Aspartate Aminotransferase 28 IU/L (17-59); Bilirubin Total 0.9 mg/dL (0.2-1.3); Blood Urea Nitrogen 98 mg/dL (9-20); Calcium 8.8 mg/dL (8.4-10.2); Carbon Dioxide 19 mmol/L (22-32); Chloride 108 mmol/L (98-107); Estimated Glomerular Filt Rate 12 mL/min (>60); Glucose 106 mg/dL (70-100); HEMOLYSIS < 15 (0-50); Sodium 136 mmol/L (137-145); Total Protein 5.8 g/dL (6.3-8.2)
[2022-02-27 13:35] LABS: Potassium 6.3 mmol/L (3.4-5.1)
== END ==
PROVIDERS: Family Provider Internal Medicine; PCP Internal Medicine; Referring Provider Internal Medicine; Visit Provider Internal Medicine
DX: K72.90 Hepatic failure, unspecified without coma (principal); K76.7 Hepatorenal syndrome; N18.4 Chronic kidney disease, stage 4 (severe)
CPT/HCPCS: 36415; 80053; 82140; 85025

== ENCOUNTER 2022-02-27 16:42 | Emergency (ER) | payer OTHER, MEDICAID, SELFPAY ==
[2022-02-03 06:25] VITALS: RESP 22
[2022-02-04 19:16] VITALS: PULSE 109; RESP 25; O2SAT 100
[2022-02-27] VITALS (11 sets, daily range): BP systolic 135–182; BP diastolic 78–94; PULSE 66–82; RESP 10–20; TEMP 37; O2SAT 97–100; BMI 37.1
--- NOTE | 2022-02-27 17:29 | DI.RAD.S_ITS ---
PROCEDURE: XR CHEST 1V INDICATIONS: sob TECHNIQUE: One view of the chest was acquired. COMPARISON: Located Within [facility], CR, XR CHEST 1V, 02/04/2022, 13:09. FINDINGS: Surgical changes and devices: None. Lungs and pleura: Lungs are clear. No pleural effusions or pneumothorax. Low lung volumes accentuate pulmonary interstitium and heart size. Mediastinum: Mediastinal contours appear normal. Heart size is normal. Bones and chest wall: Left shoulder arthroplasty in good position. IMPRESSION: No acute cardiopulmonary findings Approved by: Arthur Cruz M.D. on 02/27/2022 at 18:00
[2022-02-27] MEDS: DEXTROSE 25 % IN WATER 2.5 GM/10 ML SYRINGE IV (18:11)
[2022-02-27] MEDS: INSULIN REGULAR 100 UNIT/ML 3 ML VIAL IV (18:11)
[2022-02-27] MEDS: FUROSEMIDE 40 MG/4 ML VIAL IV (18:11)
[2022-02-27 19:15] LABS: Alanine Aminotransferase 11 IU/L (<50); Albumin 2.8 g/dL (3.5-5.0); Albumin Globulin Ratio 0.9 (1.0-2.8); Alkaline Phosphatase 192 U/L (38-126); Aspartate Aminotransferase 29 IU/L (17-59); BUN Creatinine Ratio 17.7 (6-22); Bilirubin Total 0.9 mg/dL (0.2-1.3); Blood Urea Nitrogen 98 mg/dL (9-20); Calcium 8.6 mg/dL (8.4-10.2); Carbon Dioxide 18 mmol/L (22-32); Chloride 110 mmol/L (98-107); Estimated Glomerular Filt Rate 11 mL/min (>60); Globulin 3.1 g/dL (1.7-4.1); Glucose 152 mg/dL (70-100); HEMOLYSIS < 15 (0-50); Sodium 135 mmol/L (137-145); Total Protein 5.9 g/dL (6.3-8.2)
[2022-02-27 19:16] LABS: Potassium 5.4 mmol/L (3.4-5.1)
--- NOTE | 2022-02-27 19:20 | PC.NURSE ---
Notified Dr. Hoyt concerning pt drop in glucose, orders received to feed pt. Pt provided turkey sandwich, cheese, and cranberry juice.
[2022-02-27] MEDS: OXYCODONE IR 5 MG TABLET 10 MG PO (19:26)
--- NOTE | 2022-02-27 19:39 | DI.CT.S_ITS ---
PROCEDURE: CT KIDNEY URETER BLADDER (KUB) INDICATIONS: acute on chronic renal failure, hyperkalemia TECHNIQUE: Axial sections were acquired from the lung bases to the pubic symphysis. Coronal and sagittal reformats were performed. For radiation dose reduction, the following was used: automated exposure control, adjustment of mA and/or kV according to patient size. COMPARISON: [facility], CT, ABDOMEN/PELVIS WITH CONTRAST, 11/09/2014, 20:52. [facility], CT, CT CHEST ABD PEL WO CON, 01/19/2022, 1:48. FINDINGS: Image quality: There is metallic streak artifact from patient's right hip prosthesis. Lung bases: There is mild dependent atelectasis. Heart: Heart is mildly enlarged. There is a small hiatal hernia. URINARY: Right Kidney and Ureter: No stones or hydronephrosis. There is mild renal cortical thinning. Nonspecific perinephric stranding is redemonstrated. No hydroureter. Left Kidney and Ureter: No stones or hydronephrosis. There is mild renal cortical thinning. Nonspecific perinephric stranding is redemonstrated. No hydroureter. Bladder: Normal wall thickness. No stones. ABDOMEN: Liver: Noncontrast evaluation of the liver demonstrates no discrete mass. Postsurgical changes are redemonstrated consistent with prior liver transplant. Gallbladder: Within normal limits without calcified gallstones. Biliary ducts: No biliary ductal dilatation. Pancreas: There is a well-circumscribed cyst redemonstrated superior to the pancreas along the gastrohepatic ligament which appears slightly increased in size over time now measuring up to 2.8 x 2.4 cm but has been present compared to prior studies dating back to 11/09/2014 on which it measured 2.5 x 1.9 cm. The findings likely represent a postsurgical collection such as a lymphocele or seroma. Spleen: Normal in size. Adrenal Glands: No adrenal nodules. Stomach and Bowel: Stomach, small bowel loops, and colon are normal in caliber and wall thickness. No pericecal inflammatory changes to suggest appendicitis. There is colonic diverticulosis without acute diverticulitis. Peritoneum: No abnormal intraperitoneal fluid. No free air. Ventral Wall: No hernia. Abdominal Nodes: No retroperitoneal or mesenteric adenopathy by size criteria. Vessels: Aorta and inferior vena cava are normal in size. PELVIS: Pelvic Organs: Unremarkable. Pelvic Nodes: No enlarged lymph nodes. Miscellaneous: No inguinal hernias identified. Bones: Multiple [id number] compression deformities are redemonstrated throughout the visualized lower thoracic and lumbar spine. These appear similar to the prior study. Visualized osseous structures demonstrate no suspicious focal lesions. IMPRESSION: 1. No evidence of hydronephrosis. 2. Postsurgical changes redemonstrated consistent with prior liver transplant. No new perihepatic collections or discrete mass identified. No definite new biliary ductal dilatation. Evaluation is limited in the absence of intravenous contrast. 3. Loculated fluid collection redemonstrated along the gastrohepatic ligament, minimally increased in size over time compared to prior studies dating back to 2015. The findings likely represent a postsurgical collection such as a lymphocele or seroma. 4. Multiple compression deformities redemonstrated within the lower thoracic and lumbar spine, similar to the prior study. Dictated by: Dom Berman M.D. on 02/27/2022 at 20:45 Approved by: Dom Berman M.D. on 02/27/2022 at 20:54
--- NOTE | 2022-02-27 20:00 | ED.RECABL ---
HPI - Recheck/Abnormal Lab/Rx <Yanique Hoyt, DO - Last Filed: 02/28/22 06:52> General Chief Complaint: Recheck/Abnormal Lab/Rx Stated Complaint: SOB/DOCTOR REFERED FOR DIALYSIS Time Seen by Provider: 02/27/22 17:16 Source: patient Mode of arrival: Wheelchair Limitations: no limitations History of Present Illness HPI narrative: This is a 56-year-old male with history of liver transplant, history of HCV cirrhosis, recurrent alcohol use and chronic kidney disease with recent COVID infection in January. Patient was been seen in the past and recommended to have dialysis and left Against Medical Advice. Patient has since reconsidered. He is feeling worse today he had labs rechecked and found to have hyperkalemia with worsening renal dysfunction. He denies fevers he is felt cold, he has chest pain occasionally and states he had some yesterday but none today. He is had increasing shortness of breath. Decreased appetite and nausea and vomiting intermittently. He states last episode was last night. Denies any hematemesis. No black or bloody stools. No diarrhea or constipation. He does make urine he states it has been a little darker, he has not noticed a decrease in his output. No dysuria, urgency or frequency. He is had some increased swelling in his extremities. He states he is on oral medications for diabetes, chronic pain medication including fentanyl patch, medications for his liver transplant and hypertension. He denies any prior heart attacks or strokes. He has never seen nephrology formally as an outpatient according to the patient and no prior dialysis. His primary care is Dr. Porter. He states that he is interested in dialysis at this time he does understand if he does not obtain dialysis eventually he will go into full renal failure and . He states he is a full code and that his sister who he lives with is his DPOA decision maker. Related Data Home Medications Medication Instructions Recorded Confirmed allopurinol 100 mg tablet 100 mg PO DAILY 01/14/20 03/01/22 cyclosporine modified 25 mg capsule 25 mg PO BID 01/14/20 03/01/22 duloxetine 20 mg capsule,delayed 20 mg PO DAILY 01/14/20 03/01/22 release (Cymbalta) gabapentin 300 mg capsule 300 mg PO BID 01/14/20 03/01/22 lidocaine 5 % topical patch 1 patch topical DAILY PRN Back Pain 01/14/20 03/01/22 (Lidoderm) mycophenolate mofetil 500 mg 500 mg PO BID 01/14/20 03/01/22 tablet (CellCept) quetiapine 25 mg tablet (Seroquel) 25 mg PO BEDTIME 01/14/20 03/01/22 ursodiol 300 mg capsule 300 mg PO BID 01/14/20 03/01/22 rifaximin 550 mg tablet (Xifaxan) 550 mg PO BID 09/20/20 03/01/22 metoprolol succinate 25 mg 25 mg PO BID 01/25/21 03/01/22 tablet,extended release 24 hr tamsulosin 0.4 mg capsule 0.4 mg PO BEDTIME 04/27/21 03/01/22 cholecalciferol (vitamin D3) 25 25 mcg PO DAILY 03/01/22 03/01/22 mcg (1,000 unit) capsule docusate sodium 250 mg capsule 250 mg PO BID 03/01/22 03/01/22 fentanyl 25 mcg/hr transdermal 1 patch transdermal Q72H 03/01/22 03/01/22 patch losartan 25 mg tablet 25 mg PO QAM 03/01/22 03/01/22 multivitamin,[id number] 1 tab PO DAILY 03/01/22 03/01/22 ondansetron 4 mg disintegrating 4 mg PO Q8H PRN nausea / vomiting 03/01/22 03/01/22 tablet prednisone 5 mg tablet 5 mg PO DAILY PRN gout flare 03/01/22 03/01/22 thiamine mononitrate (vit B1) 100 100 mg PO QAM 03/01/22 03/01/22 mg tablet zinc sulfate 50 mg zinc (220 mg) 50 mg PO QAM 03/01/22 03/01/22 capsule Previous Rx's Medication Instructions Recorded pantoprazole 40 mg tablet,delayed 40 mg PO DAILY #30 tabs 05/14/20 release (Protonix) oxycodone 10 mg tablet 10 mg PO Q3HR PRN Pain, Severe 05/11/21 (7-10) #60 tabs lactulose 20 gram/30 mL oral 30 gm PO TID #11,000 mL 07/05/21 solution famotidine 20 mg tablet (Pepcid AC) 20 mg PO BEDTIME #120 tabs 07/06/21 furosemide 40 mg tablet (Lasix) 40 mg PO DAILY #5 tabs 01/17/22 Allergies Allergy/AdvReac Type Severity Reaction Status Date / Time adhesive tape Allergy Severe Paper Verified 02/27/22 17:10 tape causes big sores doxylamine [From NyQuil] Allergy Severe Seizure Verified 02/27/22 17:10 venom-honey bee Allergy Severe Wheezing, Verified 02/27/22 17:10 [BEE VENOM (HONEY BEE)] throat closing pseudoephedrine Allergy Pt does Verified 02/27/22 17:10 not recall codeine AdvReac Severe Vomiting Verified 02/27/22 17:10 dextromethorphan AdvReac Severe Seizure Verified 02/27/22 17:10 NSAIDS (Non-Steroidal AdvReac Severe Abdominal Verified 02/27/22 17:10 Anti-Inflamma Pain copper AdvReac Intermediate Soaks Verified 02/27/22 17:10 into my body and hurts my jaw and joints morphine AdvReac Intermediate Vomiting Verified 02/27/22 17:10 oxycodone AdvReac Intermediate Vomiting Verified 02/27/22 17:10 tizanidine AdvReac Unknown Pt does Verified 02/27/22 17:10 not recall Review of Systems <Yanique Hoyt DO - Last Filed: 02/28/22 06:52> Review of Systems ROS Unobtainable: All systems reviewed & are unremarkable except as noted in HPI and below Patient History <Yanique Hoyt DO - Last Filed: 02/28/22 06:52> Medical History Cirrhosis of liver CKD (chronic kidney disease) Compression fracture Depression Former smoker GERD (gastroesophageal reflux disease) Gout Hepatitis C (~2011) History of vertebral compression fracture Hypertension Immunosuppression Liver cancer Medical marijuana use GUILLE (obstructive sleep apnea) Osteoporosis PAC (premature atrial contraction) Pain management contract agreement Paroxysmal atrial fibrillation PVC (premature ventricular contraction) Thrombocytopenia Surgical History H/O right wrist surgery History of biliary duct stent placement (01/2013) History of open reduction and internal fixation (ORIF) procedure (09/22/20) History of removal of retained hardware (01/25/21) History of right hip replacement Hx of appendectomy (~1979) Hx of cholecystectomy (~2003) Hx of elbow surgery (~2003) Hx of elbow surgery (~2007) Hx of fusion of cervical spine Hx of hernia repair Hx of shoulder surgery (~2012) Hx of tonsillectomy (~1969) Liver transplant recipient (11/24/11) Presence of left artificial elbow joint Family History Mother Renal failure Father Diabetes mellitus Congestive heart failure Social History household members: none Smoking Status: Former smoker alcohol intake: current Smoking Status: Former smoker tobacco type: cigarettes alcohol intake frequency: a few times a month Alcohol type: hard liquor Substance Use Type: marijuana Exam <Yanique Hoyt DO - Last Filed: 02/28/22 06:52> Narrative Exam Narrative: GENERAL: Alert and oriented x three, male in mild distress. No jaundice. Patient is mildly confused about certain details of his history but clear on majority. HEENT: Head normocephalic, atraumatic, EOMI, pupils reactive, face symmetric, moist mucous membranes NECK: Supple, full range of motion CARDIOVASCULAR: Regular rate and rhythm without murmurs, rubs or gallops. RESPIRATORY: Breath sounds equal bilaterally, no wheezes rales or rhonchi. ABDOMEN: Soft, nontender. Normoactive bowel sounds all 4 quadrants. No guarding or rebound, rigidity, no mass : No CVA tenderness EXTREMITIES: Normal range of motion, positive for bilateral lower extremity edema. Neurovascularly intact NEUROLOGICAL: Cranial nerves II through XII grossly intact. Moving all extremities SKIN: Warm, dry, no petechiae, no rashes or lesions. Initial Vital Signs Initial Vital Signs: Vital Signs Temperature 98.6 F 02/27/22 17:06 Pulse Rate 82 02/27/22 17:06 Respiratory Rate 20 02/27/22 17:06 Blood Pressure 182/93 H 02/27/22 17:06 Pulse Oximetry 97 02/27/22 17:06 Oxygen Delivery Method 02/27/22 17:06 <Mitchell Crews MD - Last Filed: 03/03/22 12:24> Initial Vital Signs Initial Vital Signs: Vital Signs Temperature 98.6 F 02/27/22 17:06 Pulse Rate 82 02/27/22 17:06 Respiratory Rate 20 02/27/22 17:06 Blood Pressure 182/93 H 02/27/22 17:06 Pulse Oximetry 97 02/27/22 17:06 Oxygen Delivery Method 02/27/22 17:06 <Bogdan Tran, DO - Last Filed: 03/02/22 03:41> Initial Vital Signs Initial Vital Signs: Vital Signs Temperature 98.6 F 02/27/22 17:06 Pulse Rate 82 02/27/22 17:06 Respiratory Rate 20 02/27/22 17:06 Blood Pressure 182/93 H 02/27/22 17:06 Pulse Oximetry 97 02/27/22 17:06 Oxygen Delivery Method 02/27/22 17:06 <Mei Akhtar, DO - Last Filed: 03/01/22 18:04> Initial Vital Signs Initial Vital Signs: Vital Signs Temperature 98.6 F 02/27/22 17:06 Pulse Rate 82 02/27/22 17:06 Respiratory Rate 20 02/27/22 17:06 Blood Pressure 182/93 H 02/27/22 17:06 Pulse Oximetry 97 02/27/22 17:06 Oxygen Delivery Method 02/27/22 17:06 Course <Yanique Hoyt, DO - Last Filed: 02/28/22 06:52> Orders Ordered: Discontinued Medications Albuterol (Albuterol 2.5 Mg/3 Ml Neb (Adult)) 2.5 mg INH NOW ONE Stop: 02/28/22 08:03 Last Admin: 02/28/22 08:19 Dose: 2.5 mg Documented By: LEONELA Allopurinol (Allopurinol 100 Mg Tablet) 100 mg PO DAILY [facility] Last Admin: 03/01/22 10:27 Dose: 100 mg Documented By: CSD Calcium Chloride (Calcium Chloride 1,000 Mg/10 Ml Syringe) 1,000 mg IV NOW ONE Stop: 02/28/22 08:18 Last Admin: 02/28/22 08:36 Dose: 1,000 mg Documented By: HENRIQUES Cyclosporine (Cyclosporine, Modified 25 Mg Capsule) 25 mg PO BID [facility] Cyclosporine (Cyclosporine, Modified 25 Mg Capsule) 25 mg PO NOW ONE Stop: 03/01/22 07:31 Last Admin: 03/01/22 07:22 Dose: 25 mg Documented By: MLM Dextrose (Dextrose 25 % In Water 2.5 Gm/10 Ml Syringe) 2.5 gm IV NOW ONE Stop: 02/27/22 17:18 Last Admin: 02/27/22 18:11 Dose: 2.5 gm Documented By: AT Docusate Sodium (Docusate 100 Mg Capsule) 200 mg PO BID [facility] Last Admin: 03/01/22 10:27 Dose: 200 mg Documented By: AGUSTIN Duloxetine HCl (Duloxetine 20 Mg Capsule) 20 mg PO DAILY [facility] Last Admin: 03/01/22 10:27 Dose: 20 mg Documented By: AGUSTIN Famotidine (Famotidine 20 Mg Tablet) 20 mg PO BEDTIME [facility] Furosemide (Furosemide 40 Mg/4 Ml Vial) 40 mg IV NOW ONE Stop: 02/27/22 17:18 Last Admin: 02/27/22 18:11 Dose: 40 mg Documented By: AKHIL Furosemide (Furosemide 20 Mg Tablet) 20 mg PO NOW ONE Stop: 02/28/22 11:13 Last Admin: 02/28/22 11:41 Dose: 20 mg Documented By: DELFIN Furosemide (Furosemide 20 Mg Tablet) 20 mg PO NOW ONE Stop: 03/01/22 09:30 Last Admin: 03/01/22 12:19 Dose: 20 mg Documented By: AGUSTIN Gabapentin (Gabapentin 300 Mg Capsule) 300 mg PO NOW ONE Stop: 02/28/22 11:13 Last Admin: 02/28/22 11:42 Dose: 300 mg Documented By: DELFIN Gabapentin (Gabapentin 300 Mg Capsule) 300 mg PO BID [facility] Last Admin: 03/01/22 10:27 Dose: 300 mg Documented By: AGUSTIN Heparin Sodium (Porcine) (Heparin Flush (Cl/Picc/Mid-Line) 50 Unit/5 Ml Syringe) 50 unit IV PRN PRN PRN Reason: Flush Last Admin: 03/01/22 11:53 Dose: 50 unit Documented By: Admin: 03/01/22 11:52 Dose: 50 unit Documented By: Admin: 03/01/22 11:20 Dose: 50 unit Documented By: Admin: 02/28/22 11:41 Dose: 50 unit Documented By: Admin: 02/28/22 11:08 Dose: 50 unit Documented By: LIZZETTE Heparin Sodium (Porcine) (Heparin Flush (Cl/Picc/Mid-Line) 50 Unit/5 Ml Syringe) 50 unit IV BID [facility] Hydralazine HCl (Hydralazine 20 Mg/Ml Vial) 10 mg IV NOW ONE Stop: 02/28/22 01:18 Last Admin: 02/28/22 01:25 Dose: 10 mg Documented By: BARBIE Hydromorphone HCl (Hydromorphone 0.5 Mg Inj) 0.5 mg IV NOW ONE Stop: 02/28/22 01:40 Last Admin: 02/28/22 01:41 Dose: 0.5 mg Documented By: BARBIE Calcium Gluconate 4.65 meq/ (Sodium Chloride) 60 mls @ 180 mls/hr IV NOW ONE Stop: 02/27/22 21:48 Last Infusion: 02/27/22 23:06 Dose: 0 mls/hr Documented By: Admin: 02/27/22 22:03 Dose: 180 mls/hr Documented By: AKHIL Calcium Gluconate 9.3 meq/ (Sodium Chloride) 70 mls @ 140 mls/hr IV NOW ONE Stop: 02/28/22 08:31 Last Infusion: 02/28/22 09:15 Dose: 0 mls/hr Documented By: Admin: 02/28/22 08:44 Dose: 140 mls/hr Documented By: LIZZETTE Dextrose (D10w) 1,000 mls @ 150 mls/hr IV CONT [facility] Last Infusion: 02/28/22 11:43 Dose: 0 mls/hr Documented By: Infusion: 02/28/22 11:42 Dose: 0 mls/hr Documented By: Admin: 02/28/22 08:37 Dose: 150 mls/hr Documented By: LIZZETTE Insulin Human Regular (Insulin Regular 100 Unit/Ml 3 Ml Vial) 5 unit IV NOW ONE Stop: 02/27/22 17:18 Last Admin: 02/27/22 18:11 Dose: 5 unit Documented By: AT Co-signed By: AMU Insulin Human Regular (Insulin Regular 100 Unit/Ml 3 Ml Vial) 5 unit IV NOW ONE Stop: 02/28/22 08:03 Last Admin: 02/28/22 08:40 Dose: 5 unit Documented By: LIZZETTE Co-signed By: CHERI Lactulose (Lactulose 20 Gm/30 Ml Solution) 20 gm PO NOW ONE Stop: 02/28/22 02:00 Last Admin: 02/28/22 02:46 Dose: 20 gm Documented By: MANDY Lactulose (Lactulose 20 Gm/30 Ml Solution) 20 gm PO NOW ONE Stop: 02/28/22 22:45 Last Admin: 03/01/22 00:07 Dose: 20 gm Documented By: BECKI Lactulose (Lactulose 20 Gm/30 Ml Solution) 20 gm PO Q8HR [facility] Last Admin: 03/01/22 07:18 Dose: 20 gm Documented By: MANDY Lidocaine (Lidocaine Patch 1 Each Adh..Patch) 1 each TOP DAILY PRN PRN Reason: back pain Lidocaine (Remove Lidocaine Patch) 1 each TOP BEDTIME [facility] Losartan Potassium (Losartan 25 Mg Tablet) 25 mg PO NOW ONE Stop: 02/28/22 11:13 Last Admin: 02/28/22 11:41 Dose: 25 mg Documented By: DELFIN Losartan Potassium (Losartan 25 Mg Tablet) 25 mg PO DAILY [facility] Last Admin: 03/01/22 08:06 Dose: 25 mg Documented By: AGUSTIN Metoprolol Succinate (Metoprolol Er 25 Mg Tablet) 25 mg PO BID [facility] Last Admin: 03/01/22 10:28 Dose: 25 mg Documented By: AGUSTIN Mycophenolate Mofetil (Mycophenolate Mofetil 500 Mg Tablet) 500 mg PO BID [facility] Mycophenolate Mofetil (Mycophenolate Mofetil 500 Mg Tablet) 500 mg PO NOW ONE Stop: 03/01/22 07:31 Last Admin: 03/01/22 07:22 Dose: 500 mg Documented By: MANDY Ondansetron HCl (Ondansetron 4 Mg/2 Ml Inj) 4 mg IV Q6HR PRN PRN Reason: Nausea Last Admin: 03/01/22 14:22 Dose: 4 mg Documented By: Admin: 02/28/22 19:45 Dose: 4 mg Documented By: BECKI Oxycodone HCl (Oxycodone Ir 5 Mg Tablet) 10 mg PO NOW ONE Stop: 02/27/22 19:04 Last Admin: 02/27/22 19:26 Dose: 10 mg Documented By: AT Oxycodone HCl (Oxycodone Ir 10 Mg Tablet) 10 mg PO Q6HR PRN PRN Reason: Pain, Severe (7-10) Oxycodone HCl (Oxycodone Ir 5 Mg Tablet) 5 mg PO PRN PRN PRN Reason: Pain, Severe (7-10) Oxycodone HCl (Oxycodone Ir 5 Mg Tablet) 5 mg PO Q6H PRN PRN Reason: Pain, Severe (7-10) Last Admin: 03/01/22 14:24 Dose: 5 mg Documented By: Admin: 03/01/22 08:05 Dose: 5 mg Documented By: Admin: 03/01/22 02:26 Dose: 5 mg Documented By: Admin: 02/28/22 19:58 Dose: 5 mg Documented By: Admin: 02/28/22 14:21 Dose: 5 mg Documented By: Admin: 02/28/22 08:27 Dose: 5 mg Documented By: LIZZETTE Pantoprazole Sodium (Pantoprazole 40 Mg Vial) 40 mg IV NOW ONE Stop: 02/28/22 20:04 Last Admin: 02/28/22 20:15 Dose: 40 mg Documented By: BECKI Pantoprazole Sodium (Pantoprazole Dr 20 Mg Tablet) 40 mg PO DAILY [facility] Last Admin: 03/01/22 10:48 Dose: Not Given Documented By: AGUSTIN Pantoprazole Sodium (Pantoprazole Dr 40 Mg Tablet) 40 mg PO DAILY [facility] Last Admin: 03/01/22 10:28 Dose: 40 mg Documented By: AGUSTIN Quetiapine Fumarate (Quetiapine 25 Mg Tablet) 25 mg PO BEDTIME [facility] Rifaximin (Rifaximin 550 Mg Tablet) 550 mg PO BID [facility] Last Admin: 03/01/22 10:27 Dose: 550 mg Documented By: AGUSTIN Sodium Polystyrene Sulfonate (Sodium Polystyrene Sulfon/Sorb 15 Gm/60 Ml Cup) 30 gm PO NOW ONE Stop: 02/27/22 21:28 Last Admin: 02/27/22 22:04 Dose: 30 gm Documented By: AT Sodium Polystyrene Sulfonate (Sodium Polystyrene Sulfon/Sorb 15 Gm/60 Ml Cup) 30 gm PO NOW ONE Stop: 02/28/22 14:14 Last Admin: 02/28/22 14:22 Dose: 30 gm Documented By: DELFIN Thiamine HCl (Thiamine 100 Mg Tablet) 100 mg PO DAILY [facility] Last Admin: 03/01/22 10:27 Dose: 100 mg Documented By: AGUSTIN Ursodiol (Ursodiol 300 Mg Capsule) 300 mg PO BID [facility] Last Admin: 03/01/22 10:28 Dose: 300 mg Documented By: AGUSTIN Vitamin D (Cholecalciferol (Vitamin D3) 1,000 Unit Tablet) 1,000 unit PO DAILY [facility] Last Admin: 03/01/22 12:19 Dose: 1,000 unit Documented By: CSD Reevaluation(s) Reevaluation #1: Patient has been coughing. Not actively vomiting. He did have stools after Kayexalate. Patient's blood pressure did elevate was given a dose of hydralazine. Patient does not appear to be on any daily blood pressure medications according to his list. Reevaluation #2: Patient does seem more confused. Ammonia level and repeat labs obtained. Reevaluation #3: Patient awake, states he had a hard night and is quiet tired. Mentation appears stable. Discussed with patient continued plan who transfer to a larger facility and that new physician be taking over for a day shift. Time: 06:51 Consultations Consultation #1: Megan Reynoso, medicine, Dr. Gera Maier-recommends holding his transplant medications overnight, rechecking labs in the morning they could potentially take patient tomorrow but definitely not tonight. They do ask that we seek placement elsewhere if there are any beds available as they are significantly and critically overloaded currently. Time: 22:42 Vital Signs Vital signs: Vital Signs - 8 hr 03/01/22 10:28 03/01/22 10:30 03/01/22 11:00 Pulse Rate 76 70 Respiratory Rate 28 H 14 Blood Pressure 168/100 H Pulse Oximetry 97 98 Oxygen Delivery Method 03/01/22 11:01 03/01/22 11:01 03/01/22 11:30 Pulse Rate 69 69 Respiratory Rate 15 14 Blood Pressure 185/95 H Pulse Oximetry 98 98 Oxygen Delivery Method 03/01/22 12:17 03/01/22 12:00 03/01/22 12:01 Pulse Rate 78 72 72 Respiratory Rate 12 15 Blood Pressure 183/92 H Pulse Oximetry 97 98 Oxygen Delivery Method 03/01/22 12:01 03/01/22 12:30 03/01/22 13:00 Pulse Rate 82 77 Respiratory Rate 11 L 22 Blood Pressure 183/92 H Pulse Oximetry 99 97 Oxygen Delivery Method 03/01/22 13:01 03/01/22 13:01 03/01/22 13:30 Pulse Rate 80 77 Respiratory Rate 21 29 H Blood Pressure 179/108 H Pulse Oximetry 96 98 Oxygen Delivery Method Room Air 03/01/22 14:00 Pulse Rate 77 Respiratory Rate 15 Blood Pressure Pulse Oximetry 97 Oxygen Delivery Method <Mitchell Crews MD - Last Filed: 03/03/22 12:24> Orders Ordered: Discontinued Medications Albuterol (Albuterol 2.5 Mg/3 Ml Neb (Adult)) 2.5 mg INH NOW ONE Stop: 02/28/22 08:03 Last Admin: 02/28/22 08:19 Dose: 2.5 mg Documented By: LEONELA Allopurinol (Allopurinol 100 Mg Tablet) 100 mg PO DAILY [facility] Last Admin: 03/01/22 10:27 Dose: 100 mg Documented By: AGUSTIN Calcium Chloride (Calcium Chloride 1,000 Mg/10 Ml Syringe) 1,000 mg IV NOW ONE Stop: 02/28/22 08:18 Last Admin: 02/28/22 08:36 Dose: 1,000 mg Documented By: LIZZETTE Cyclosporine (Cyclosporine, Modified 25 Mg Capsule) 25 mg PO BID [facility] Cyclosporine (Cyclosporine, Modified 25 Mg Capsule) 25 mg PO NOW ONE Stop: 03/01/22 07:31 Last Admin: 03/01/22 07:22 Dose: 25 mg Documented By: MLM Dextrose (Dextrose 25 % In Water 2.5 Gm/10 Ml Syringe) 2.5 gm IV NOW ONE Stop: 02/27/22 17:18 Last Admin: 02/27/22 18:11 Dose: 2.5 gm Documented By: AT Docusate Sodium (Docusate 100 Mg Capsule) 200 mg PO BID [facility] Last Admin: 03/01/22 10:27 Dose: 200 mg Documented By: AGUSTIN Duloxetine HCl (Duloxetine 20 Mg Capsule) 20 mg PO DAILY [facility] Last Admin: 03/01/22 10:27 Dose: 20 mg Documented By: AGUSTIN Famotidine (Famotidine 20 Mg Tablet) 20 mg PO BEDTIME [facility] Furosemide (Furosemide 40 Mg/4 Ml Vial) 40 mg IV NOW ONE Stop: 02/27/22 17:18 Last Admin: 02/27/22 18:11 Dose: 40 mg Documented By: AT Furosemide (Furosemide 20 Mg Tablet) 20 mg PO NOW ONE Stop: 02/28/22 11:13 Last Admin: 02/28/22 11:41 Dose: 20 mg Documented By: KF Furosemide (Furosemide 20 Mg Tablet) 20 mg PO NOW ONE Stop: 03/01/22 09:30 Last Admin: 03/01/22 12:19 Dose: 20 mg Documented By: AGUSTIN Gabapentin (Gabapentin 300 Mg Capsule) 300 mg PO NOW ONE Stop: 02/28/22 11:13 Last Admin: 02/28/22 11:42 Dose: 300 mg Documented By: DELFIN Gabapentin (Gabapentin 300 Mg Capsule) 300 mg PO BID [facility] Last Admin: 03/01/22 10:27 Dose: 300 mg Documented By: AGUSTIN Heparin Sodium (Porcine) (Heparin Flush (Cl/Picc/Mid-Line) 50 Unit/5 Ml Syringe) 50 unit IV PRN PRN PRN Reason: Flush Last Admin: 03/01/22 11:53 Dose: 50 unit Documented By: Admin: 03/01/22 11:52 Dose: 50 unit Documented By: Admin: 03/01/22 11:20 Dose: 50 unit Documented By: Admin: 02/28/22 11:41 Dose: 50 unit Documented By: Admin: 02/28/22 11:08 Dose: 50 unit Documented By: LIZZETTE Heparin Sodium (Porcine) (Heparin Flush (Cl/Picc/Mid-Line) 50 Unit/5 Ml Syringe) 50 unit IV BID [facility] Hydralazine HCl (Hydralazine 20 Mg/Ml Vial) 10 mg IV NOW ONE Stop: 02/28/22 01:18 Last Admin: 02/28/22 01:25 Dose: 10 mg Documented By: BARBIE Hydromorphone HCl (Hydromorphone 0.5 Mg Inj) 0.5 mg IV NOW ONE Stop: 02/28/22 01:40 Last Admin: 02/28/22 01:41 Dose: 0.5 mg Documented By: BARBIE Calcium Gluconate 4.65 meq/ (Sodium Chloride) 60 mls @ 180 mls/hr IV NOW ONE Stop: 02/27/22 21:48 Last Infusion: 02/27/22 23:06 Dose: 0 mls/hr Documented By: Admin: 02/27/22 22:03 Dose: 180 mls/hr Documented By: AT Calcium Gluconate 9.3 meq/ (Sodium Chloride) 70 mls @ 140 mls/hr IV NOW ONE Stop: 02/28/22 08:31 Last Infusion: 02/28/22 09:15 Dose: 0 mls/hr Documented By: Admin: 02/28/22 08:44 Dose: 140 mls/hr Documented By: LIZZETTE Dextrose (D10w) 1,000 mls @ 150 mls/hr IV CONT [facility] Last Infusion: 02/28/22 11:43 Dose: 0 mls/hr Documented By: Infusion: 02/28/22 11:42 Dose: 0 mls/hr Documented By: Admin: 02/28/22 08:37 Dose: 150 mls/hr Documented By: LIZZETTE Insulin Human Regular (Insulin Regular 100 Unit/Ml 3 Ml Vial) 5 unit IV NOW ONE Stop: 02/27/22 17:18 Last Admin: 02/27/22 18:11 Dose: 5 unit Documented By: AT Co-signed By: POPEYEU Insulin Human Regular (Insulin Regular 100 Unit/Ml 3 Ml Vial) 5 unit IV NOW ONE Stop: 02/28/22 08:03 Last Admin: 02/28/22 08:40 Dose: 5 unit Documented By: LIZZETTE Co-signed By: CHERI Lactulose (Lactulose 20 Gm/30 Ml Solution) 20 gm PO NOW ONE Stop: 02/28/22 02:00 Last Admin: 02/28/22 02:46 Dose: 20 gm Documented By: MANDY Lactulose (Lactulose 20 Gm/30 Ml Solution) 20 gm PO NOW ONE Stop: 02/28/22 22:45 Last Admin: 03/01/22 00:07 Dose: 20 gm Documented By: BECKI Lactulose (Lactulose 20 Gm/30 Ml Solution) 20 gm PO Q8HR [facility] Last Admin: 03/01/22 07:18 Dose: 20 gm Documented By: MANDY Lidocaine (Lidocaine Patch 1 Each Adh..Patch) 1 each TOP DAILY PRN PRN Reason: back pain Lidocaine (Remove Lidocaine Patch) 1 each TOP BEDTIME [facility] Losartan Potassium (Losartan 25 Mg Tablet) 25 mg PO NOW ONE Stop: 02/28/22 11:13 Last Admin: 02/28/22 11:41 Dose: 25 mg Documented By: DELFIN Losartan Potassium (Losartan 25 Mg Tablet) 25 mg PO DAILY [facility] Last Admin: 03/01/22 08:06 Dose: 25 mg Documented By: AGUSTIN Metoprolol Succinate (Metoprolol Er 25 Mg Tablet) 25 mg PO BID [facility] Last Admin: 03/01/22 10:28 Dose: 25 mg Documented By: AGUSTIN Mycophenolate Mofetil (Mycophenolate Mofetil 500 Mg Tablet) 500 mg PO BID [facility] Mycophenolate Mofetil (Mycophenolate Mofetil 500 Mg Tablet) 500 mg PO NOW ONE Stop: 03/01/22 07:31 Last Admin: 03/01/22 07:22 Dose: 500 mg Documented By: MANDY Ondansetron HCl (Ondansetron 4 Mg/2 Ml Inj) 4 mg IV Q6HR PRN PRN Reason: Nausea Last Admin: 03/01/22 14:22 Dose: 4 mg Documented By: Admin: 02/28/22 19:45 Dose: 4 mg Documented By: OW Oxycodone HCl (Oxycodone Ir 5 Mg Tablet) 10 mg PO NOW ONE Stop: 02/27/22 19:04 Last Admin: 02/27/22 19:26 Dose: 10 mg Documented By: AT Oxycodone HCl (Oxycodone Ir 10 Mg Tablet) 10 mg PO Q6HR PRN PRN Reason: Pain, Severe (7-10) Oxycodone HCl (Oxycodone Ir 5 Mg Tablet) 5 mg PO PRN PRN PRN Reason: Pain, Severe (7-10) Oxycodone HCl (Oxycodone Ir 5 Mg Tablet) 5 mg PO Q6H PRN PRN Reason: Pain, Severe (7-10) Last Admin: 03/01/22 14:24 Dose: 5 mg Documented By: Admin: 03/01/22 08:05 Dose: 5 mg Documented By: Admin: 03/01/22 02:26 Dose: 5 mg Documented By: Admin: 02/28/22 19:58 Dose: 5 mg Documented By: Admin: 02/28/22 14:21 Dose: 5 mg Documented By: Admin: 02/28/22 08:27 Dose: 5 mg Documented By: LIZZETTE Pantoprazole Sodium (Pantoprazole 40 Mg Vial) 40 mg IV NOW ONE Stop: 02/28/22 20:04 Last Admin: 02/28/22 20:15 Dose: 40 mg Documented By: BECKI Pantoprazole Sodium (Pantoprazole Dr 20 Mg Tablet) 40 mg PO DAILY [facility] Last Admin: 03/01/22 10:48 Dose: Not Given Documented By: AGUSTIN Pantoprazole Sodium (Pantoprazole Dr 40 Mg Tablet) 40 mg PO DAILY [facility] Last Admin: 03/01/22 10:28 Dose: 40 mg Documented By: AGUSTIN Quetiapine Fumarate (Quetiapine 25 Mg Tablet) 25 mg PO BEDTIME [facility] Rifaximin (Rifaximin 550 Mg Tablet) 550 mg PO BID [facility] Last Admin: 03/01/22 10:27 Dose: 550 mg Documented By: CSD Sodium Polystyrene Sulfonate (Sodium Polystyrene Sulfon/Sorb 15 Gm/60 Ml Cup) 30 gm PO NOW ONE Stop: 02/27/22 21:28 Last Admin: 02/27/22 22:04 Dose: 30 gm Documented By: AT Sodium Polystyrene Sulfonate (Sodium Polystyrene Sulfon/Sorb 15 Gm/60 Ml Cup) 30 gm PO NOW ONE Stop: 02/28/22 14:14 Last Admin: 02/28/22 14:22 Dose: 30 gm Documented By: KF Thiamine HCl (Thiamine 100 Mg Tablet) 100 mg PO DAILY [facility] Last Admin: 03/01/22 10:27 Dose: 100 mg Documented By: CSD Ursodiol (Ursodiol 300 Mg Capsule) 300 mg PO BID [facility] Last Admin: 03/01/22 10:28 Dose: 300 mg Documented By: AGUSTIN Vitamin D (Cholecalciferol (Vitamin D3) 1,000 Unit Tablet) 1,000 unit PO DAILY [facility] Last Admin: 03/01/22 12:19 Dose: 1,000 unit Documented By: CSD Reevaluation(s) Additional Reevaluation(s): Spoke to Amy at the [facility] transfer center. They are interested in taking the patient but have no bed capacity currently. She will call with an update shortly. She will try to prioritize the patient because of his emergent need for dialysis. 0915 02/28/22 This re-evaluation is at 9:34 a.m. on the . This is Mitchell Crews. I assumed care of this patient from Dr. Hoyt at approximately 7:00 a.m. I reviewed the documentation in detail. The patient is a liver transplant patient who is also on hemodialysis for renal failure. This morning his potassium level was quite elevated. We have re-initiated immediately hyper K protocol with IV calcium, albuterol and glucose and insulin. We are actively pursuing transfer talking to [facility] and many other facilities trying to find a place that will take him. The patient does confirm that he wants to go to a place where he can get dialysis. Vital Signs Vital signs: Vital Signs - 8 hr 03/01/22 10:28 03/01/22 10:30 03/01/22 11:00 Pulse Rate 76 70 Respiratory Rate 28 H 14 Blood Pressure 168/100 H Pulse Oximetry 97 98 Oxygen Delivery Method 03/01/22 11:01 03/01/22 11:01 03/01/22 11:30 Pulse Rate 69 69 Respiratory Rate 15 14 Blood Pressure 185/95 H Pulse Oximetry 98 98 Oxygen Delivery Method 03/01/22 12:17 03/01/22 12:00 03/01/22 12:01 Pulse Rate 78 72 72 Respiratory Rate 12 15 Blood Pressure 183/92 H Pulse Oximetry 97 98 Oxygen Delivery Method 03/01/22 12:01 03/01/22 12:30 03/01/22 13:00 Pulse Rate 82 77 Respiratory Rate 11 L 22 Blood Pressure 183/92 H Pulse Oximetry 99 97 Oxygen Delivery Method 03/01/22 13:01 03/01/22 13:01 03/01/22 13:30 Pulse Rate 80 77 Respiratory Rate 21 29 H Blood Pressure 179/108 H Pulse Oximetry 96 98 Oxygen Delivery Method Room Air 03/01/22 14:00 Pulse Rate 77 Respiratory Rate 15 Blood Pressure Pulse Oximetry 97 Oxygen Delivery Method <Bogdan Tran, DO - Last Filed: 03/02/22 03:41> Orders Ordered: Discontinued Medications Albuterol (Albuterol 2.5 Mg/3 Ml Neb (Adult)) 2.5 mg INH NOW ONE Stop: 02/28/22 08:03 Last Admin: 02/28/22 08:19 Dose: 2.5 mg Documented By: WJoyce Allopurinol (Allopurinol 100 Mg Tablet) 100 mg PO DAILY [facility] Last Admin: 03/01/22 10:27 Dose: 100 mg Documented By: CSD Calcium Chloride (Calcium Chloride 1,000 Mg/10 Ml Syringe) 1,000 mg IV NOW ONE Stop: 02/28/22 08:18 Last Admin: 02/28/22 08:36 Dose: 1,000 mg Documented By: HENRIQUES Cyclosporine (Cyclosporine, Modified 25 Mg Capsule) 25 mg PO BID [facility] Cyclosporine (Cyclosporine, Modified 25 Mg Capsule) 25 mg PO NOW ONE Stop: 03/01/22 07:31 Last Admin: 03/01/22 07:22 Dose: 25 mg Documented By: MLM Dextrose (Dextrose 25 % In Water 2.5 Gm/10 Ml Syringe) 2.5 gm IV NOW ONE Stop: 02/27/22 17:18 Last Admin: 02/27/22 18:11 Dose: 2.5 gm Documented By: AT Docusate Sodium (Docusate 100 Mg Capsule) 200 mg PO BID [facility] Last Admin: 03/01/22 10:27 Dose: 200 mg Documented By: AGUSTIN Duloxetine HCl (Duloxetine 20 Mg Capsule) 20 mg PO DAILY [facility] Last Admin: 03/01/22 10:27 Dose: 20 mg Documented By: AGUSTIN Famotidine (Famotidine 20 Mg Tablet) 20 mg PO BEDTIME [facility] Furosemide (Furosemide 40 Mg/4 Ml Vial) 40 mg IV NOW ONE Stop: 02/27/22 17:18 Last Admin: 02/27/22 18:11 Dose: 40 mg Documented By: AT Furosemide (Furosemide 20 Mg Tablet) 20 mg PO NOW ONE Stop: 02/28/22 11:13 Last Admin: 02/28/22 11:41 Dose: 20 mg Documented By: DELFIN Furosemide (Furosemide 20 Mg Tablet) 20 mg PO NOW ONE Stop: 03/01/22 09:30 Last Admin: 03/01/22 12:19 Dose: 20 mg Documented By: AGUSTIN Gabapentin (Gabapentin 300 Mg Capsule) 300 mg PO NOW ONE Stop: 02/28/22 11:13 Last Admin: 02/28/22 11:42 Dose: 300 mg Documented By: DELFIN Gabapentin (Gabapentin 300 Mg Capsule) 300 mg PO BID [facility] Last Admin: 03/01/22 10:27 Dose: 300 mg Documented By: AGUSTIN Heparin Sodium (Porcine) (Heparin Flush (Cl/Picc/Mid-Line) 50 Unit/5 Ml Syringe) 50 unit IV PRN PRN PRN Reason: Flush Last Admin: 03/01/22 11:53 Dose: 50 unit Documented By: Admin: 03/01/22 11:52 Dose: 50 unit Documented By: Admin: 03/01/22 11:20 Dose: 50 unit Documented By: Admin: 02/28/22 11:41 Dose: 50 unit Documented By: Admin: 02/28/22 11:08 Dose: 50 unit Documented By: LIZZETTE Heparin Sodium (Porcine) (Heparin Flush (Cl/Picc/Mid-Line) 50 Unit/5 Ml Syringe) 50 unit IV BID [facility] Hydralazine HCl (Hydralazine 20 Mg/Ml Vial) 10 mg IV NOW ONE Stop: 02/28/22 01:18 Last Admin: 02/28/22 01:25 Dose: 10 mg Documented By: BARBIE Hydromorphone HCl (Hydromorphone 0.5 Mg Inj) 0.5 mg IV NOW ONE Stop: 02/28/22 01:40 Last Admin: 02/28/22 01:41 Dose: 0.5 mg Documented By: BARBIE Calcium Gluconate 4.65 meq/ (Sodium Chloride) 60 mls @ 180 mls/hr IV NOW ONE Stop: 02/27/22 21:48 Last Infusion: 02/27/22 23:06 Dose: 0 mls/hr Documented By: Admin: 02/27/22 22:03 Dose: 180 mls/hr Documented By: AT Calcium Gluconate 9.3 meq/ (Sodium Chloride) 70 mls @ 140 mls/hr IV NOW ONE Stop: 02/28/22 08:31 Last Infusion: 02/28/22 09:15 Dose: 0 mls/hr Documented By: Admin: 02/28/22 08:44 Dose: 140 mls/hr Documented By: LIZZETTE Dextrose (D10w) 1,000 mls @ 150 mls/hr IV CONT [facility] Last Infusion: 02/28/22 11:43 Dose: 0 mls/hr Documented By: Infusion: 02/28/22 11:42 Dose: 0 mls/hr Documented By: Admin: 02/28/22 08:37 Dose: 150 mls/hr Documented By: LIZZETTE Insulin Human Regular (Insulin Regular 100 Unit/Ml 3 Ml Vial) 5 unit IV NOW ONE Stop: 02/27/22 17:18 Last Admin: 02/27/22 18:11 Dose: 5 unit Documented By: AT Co-signed By: AMU Insulin Human Regular (Insulin Regular 100 Unit/Ml 3 Ml Vial) 5 unit IV NOW ONE Stop: 02/28/22 08:03 Last Admin: 02/28/22 08:40 Dose: 5 unit Documented By: LIZZETTE Co-signed By: CHERI Lactulose (Lactulose 20 Gm/30 Ml Solution) 20 gm PO NOW ONE Stop: 02/28/22 02:00 Last Admin: 02/28/22 02:46 Dose: 20 gm Documented By: MANDY Lactulose (Lactulose 20 Gm/30 Ml Solution) 20 gm PO NOW ONE Stop: 02/28/22 22:45 Last Admin: 03/01/22 00:07 Dose: 20 gm Documented By: BECKI Lactulose (Lactulose 20 Gm/30 Ml Solution) 20 gm PO Q8HR [facility] Last Admin: 03/01/22 07:18 Dose: 20 gm Documented By: MANDY Lidocaine (Lidocaine Patch 1 Each Adh..Patch) 1 each TOP DAILY PRN PRN Reason: back pain Lidocaine (Remove Lidocaine Patch) 1 each TOP BEDTIME [facility] Losartan Potassium (Losartan 25 Mg Tablet) 25 mg PO NOW ONE Stop: 02/28/22 11:13 Last Admin: 02/28/22 11:41 Dose: 25 mg Documented By: KF Losartan Potassium (Losartan 25 Mg Tablet) 25 mg PO DAILY [facility] Last Admin: 03/01/22 08:06 Dose: 25 mg Documented By: AGUSTIN Metoprolol Succinate (Metoprolol Er 25 Mg Tablet) 25 mg PO BID [facility] Last Admin: 03/01/22 10:28 Dose: 25 mg Documented By: AGUSTIN Mycophenolate Mofetil (Mycophenolate Mofetil 500 Mg Tablet) 500 mg PO BID [facility] Mycophenolate Mofetil (Mycophenolate Mofetil 500 Mg Tablet) 500 mg PO NOW ONE Stop: 03/01/22 07:31 Last Admin: 03/01/22 07:22 Dose: 500 mg Documented By: MANDY Ondansetron HCl (Ondansetron 4 Mg/2 Ml Inj) 4 mg IV Q6HR PRN PRN Reason: Nausea Last Admin: 03/01/22 14:22 Dose: 4 mg Documented By: Admin: 02/28/22 19:45 Dose: 4 mg Documented By: BECKI Oxycodone HCl (Oxycodone Ir 5 Mg Tablet) 10 mg PO NOW ONE Stop: 02/27/22 19:04 Last Admin: 02/27/22 19:26 Dose: 10 mg Documented By: AT Oxycodone HCl (Oxycodone Ir 10 Mg Tablet) 10 mg PO Q6HR PRN PRN Reason: Pain, Severe (7-10) Oxycodone HCl (Oxycodone Ir 5 Mg Tablet) 5 mg PO PRN PRN PRN Reason: Pain, Severe (7-10) Oxycodone HCl (Oxycodone Ir 5 Mg Tablet) 5 mg PO Q6H PRN PRN Reason: Pain, Severe (7-10) Last Admin: 03/01/22 14:24 Dose: 5 mg Documented By: Admin: 03/01/22 08:05 Dose: 5 mg Documented By: Admin: 03/01/22 02:26 Dose: 5 mg Documented By: Admin: 02/28/22 19:58 Dose: 5 mg Documented By: Admin: 02/28/22 14:21 Dose: 5 mg Documented By: Admin: 02/28/22 08:27 Dose: 5 mg Documented By: LIZZETTE Pantoprazole Sodium (Pantoprazole 40 Mg Vial) 40 mg IV NOW ONE Stop: 02/28/22 20:04 Last Admin: 02/28/22 20:15 Dose: 40 mg Documented By: BECKI Pantoprazole Sodium (Pantoprazole Dr 20 Mg Tablet) 40 mg PO DAILY [facility] Last Admin: 03/01/22 10:48 Dose: Not Given Documented By: AGUSTIN Pantoprazole Sodium (Pantoprazole Dr 40 Mg Tablet) 40 mg PO DAILY [facility] Last Admin: 03/01/22 10:28 Dose: 40 mg Documented By: AGUSTIN Quetiapine Fumarate (Quetiapine 25 Mg Tablet) 25 mg PO BEDTIME [facility] Rifaximin (Rifaximin 550 Mg Tablet) 550 mg PO BID [facility] Last Admin: 03/01/22 10:27 Dose: 550 mg Documented By: AGUSTIN Sodium Polystyrene Sulfonate (Sodium Polystyrene Sulfon/Sorb 15 Gm/60 Ml Cup) 30 gm PO NOW ONE Stop: 02/27/22 21:28 Last Admin: 02/27/22 22:04 Dose: 30 gm Documented By: AT Sodium Polystyrene Sulfonate (Sodium Polystyrene Sulfon/Sorb 15 Gm/60 Ml Cup) 30 gm PO NOW ONE Stop: 02/28/22 14:14 Last Admin: 02/28/22 14:22 Dose: 30 gm Documented By: DELFIN Thiamine HCl (Thiamine 100 Mg Tablet) 100 mg PO DAILY [facility] Last Admin: 03/01/22 10:27 Dose: 100 mg Documented By: AGUSTIN Ursodiol (Ursodiol 300 Mg Capsule) 300 mg PO BID [facility] Last Admin: 03/01/22 10:28 Dose: 300 mg Documented By: AGUSTIN Vitamin D (Cholecalciferol (Vitamin D3) 1,000 Unit Tablet) 1,000 unit PO DAILY [facility] Last Admin: 03/01/22 12:19 Dose: 1,000 unit Documented By: AGUSTIN Vital Signs Vital signs: Vital Signs - 8 hr 03/01/22 10:28 03/01/22 10:30 03/01/22 11:00 Pulse Rate 76 70 Respiratory Rate 28 H 14 Blood Pressure 168/100 H Pulse Oximetry 97 98 Oxygen Delivery Method 03/01/22 11:01 03/01/22 11:01 03/01/22 11:30 Pulse Rate 69 69 Respiratory Rate 15 14 Blood Pressure 185/95 H Pulse Oximetry 98 98 Oxygen Delivery Method 03/01/22 12:17 03/01/22 12:00 03/01/22 12:01 Pulse Rate 78 72 72 Respiratory Rate 12 15 Blood Pressure 183/92 H Pulse Oximetry 97 98 Oxygen Delivery Method 03/01/22 12:01 03/01/22 12:30 03/01/22 13:00 Pulse Rate 82 77 Respiratory Rate 11 L 22 Blood Pressure 183/92 H Pulse Oximetry 99 97 Oxygen Delivery Method 03/01/22 13:01 03/01/22 13:01 03/01/22 13:30 Pulse Rate 80 77 Respiratory Rate 21 29 H Blood Pressure 179/108 H Pulse Oximetry 96 98 Oxygen Delivery Method Room Air 03/01/22 14:00 Pulse Rate 77 Respiratory Rate 15 Blood Pressure Pulse Oximetry 97 Oxygen Delivery Method <Mei Akhtar DO - Last Filed: 03/01/22 18:04> Orders Ordered: Discontinued Medications Albuterol (Albuterol 2.5 Mg/3 Ml Neb (Adult)) 2.5 mg INH NOW ONE Stop: 02/28/22 08:03 Last Admin: 02/28/22 08:19 Dose: 2.5 mg Documented By: LEONELA Allopurinol (Allopurinol 100 Mg Tablet) 100 mg PO DAILY [facility] Last Admin: 03/01/22 10:27 Dose: 100 mg Documented By: AGUSTIN Calcium Chloride (Calcium Chloride 1,000 Mg/10 Ml Syringe) 1,000 mg IV NOW ONE Stop: 02/28/22 08:18 Last Admin: 02/28/22 08:36 Dose: 1,000 mg Documented By: LIZZETTE Cyclosporine (Cyclosporine, Modified 25 Mg Capsule) 25 mg PO BID [facility] Cyclosporine (Cyclosporine, Modified 25 Mg Capsule) 25 mg PO NOW ONE Stop: 03/01/22 07:31 Last Admin: 03/01/22 07:22 Dose: 25 mg Documented By: MLMendez Dextrose (Dextrose 25 % In Water 2.5 Gm/10 Ml Syringe) 2.5 gm IV NOW ONE Stop: 02/27/22 17:18 Last Admin: 02/27/22 18:11 Dose: 2.5 gm Documented By: AT Docusate Sodium (Docusate 100 Mg Capsule) 200 mg PO BID [facility] Last Admin: 03/01/22 10:27 Dose: 200 mg Documented By: AGUSTIN Duloxetine HCl (Duloxetine 20 Mg Capsule) 20 mg PO DAILY [facility] Last Admin: 03/01/22 10:27 Dose: 20 mg Documented By: AGUSTIN Famotidine (Famotidine 20 Mg Tablet) 20 mg PO BEDTIME [facility] Furosemide (Furosemide 40 Mg/4 Ml Vial) 40 mg IV NOW ONE Stop: 02/27/22 17:18 Last Admin: 02/27/22 18:11 Dose: 40 mg Documented By: AKHIL Furosemide (Furosemide 20 Mg Tablet) 20 mg PO NOW ONE Stop: 02/28/22 11:13 Last Admin: 02/28/22 11:41 Dose: 20 mg Documented By: DELFIN Furosemide (Furosemide 20 Mg Tablet) 20 mg PO NOW ONE Stop: 03/01/22 09:30 Last Admin: 03/01/22 12:19 Dose: 20 mg Documented By: AGUSTIN Gabapentin (Gabapentin 300 Mg Capsule) 300 mg PO NOW ONE Stop: 02/28/22 11:13 Last Admin: 02/28/22 11:42 Dose: 300 mg Documented By: DELFIN Gabapentin (Gabapentin 300 Mg Capsule) 300 mg PO BID [facility] Last Admin: 03/01/22 10:27 Dose: 300 mg Documented By: AGUSTIN Heparin Sodium (Porcine) (Heparin Flush (Cl/Picc/Mid-Line) 50 Unit/5 Ml Syringe) 50 unit IV PRN PRN PRN Reason: Flush Last Admin: 03/01/22 11:53 Dose: 50 unit Documented By: Admin: 03/01/22 11:52 Dose: 50 unit Documented By: Admin: 03/01/22 11:20 Dose: 50 unit Documented By: Admin: 02/28/22 11:41 Dose: 50 unit Documented By: Admin: 02/28/22 11:08 Dose: 50 unit Documented By: LIZZETTE Heparin Sodium (Porcine) (Heparin Flush (Cl/Picc/Mid-Line) 50 Unit/5 Ml Syringe) 50 unit IV BID [facility] Hydralazine HCl (Hydralazine 20 Mg/Ml Vial) 10 mg IV NOW ONE Stop: 02/28/22 01:18 Last Admin: 02/28/22 01:25 Dose: 10 mg Documented By: RL Hydromorphone HCl (Hydromorphone 0.5 Mg Inj) 0.5 mg IV NOW ONE Stop: 02/28/22 01:40 Last Admin: 02/28/22 01:41 Dose: 0.5 mg Documented By: BARBIE Calcium Gluconate 4.65 meq/ (Sodium Chloride) 60 mls @ 180 mls/hr IV NOW ONE Stop: 02/27/22 21:48 Last Infusion: 02/27/22 23:06 Dose: 0 mls/hr Documented By: Admin: 02/27/22 22:03 Dose: 180 mls/hr Documented By: AT Calcium Gluconate 9.3 meq/ (Sodium Chloride) 70 mls @ 140 mls/hr IV NOW ONE Stop: 02/28/22 08:31 Last Infusion: 02/28/22 09:15 Dose: 0 mls/hr Documented By: Admin: 02/28/22 08:44 Dose: 140 mls/hr Documented By: LIZZETTE Dextrose (D10w) 1,000 mls @ 150 mls/hr IV CONT [facility]UNIOR Last Infusion: 02/28/22 11:43 Dose: 0 mls/hr Documented By: Infusion: 02/28/22 11:42 Dose: 0 mls/hr Documented By: Admin: 02/28/22 08:37 Dose: 150 mls/hr Documented By: LIZZETTE Insulin Human Regular (Insulin Regular 100 Unit/Ml 3 Ml Vial) 5 unit IV NOW ONE Stop: 02/27/22 17:18 Last Admin: 02/27/22 18:11 Dose: 5 unit Documented By: AT Co-signed By: AMU Insulin Human Regular (Insulin Regular 100 Unit/Ml 3 Ml Vial) 5 unit IV NOW ONE Stop: 02/28/22 08:03 Last Admin: 02/28/22 08:40 Dose: 5 unit Documented By: LIZZETTE Co-signed By: RLS Lactulose (Lactulose 20 Gm/30 Ml Solution) 20 gm PO NOW ONE Stop: 02/28/22 02:00 Last Admin: 02/28/22 02:46 Dose: 20 gm Documented By: MANDY Lactulose (Lactulose 20 Gm/30 Ml Solution) 20 gm PO NOW ONE Stop: 02/28/22 22:45 Last Admin: 03/01/22 00:07 Dose: 20 gm Documented By: OW Lactulose (Lactulose 20 Gm/30 Ml Solution) 20 gm PO Q8HR [facility] Last Admin: 03/01/22 07:18 Dose: 20 gm Documented By: MANDY Lidocaine (Lidocaine Patch 1 Each Adh..Patch) 1 each TOP DAILY PRN PRN Reason: back pain Lidocaine (Remove Lidocaine Patch) 1 each TOP BEDTIME [facility] Losartan Potassium (Losartan 25 Mg Tablet) 25 mg PO NOW ONE Stop: 02/28/22 11:13 Last Admin: 02/28/22 11:41 Dose: 25 mg Documented By: KF Losartan Potassium (Losartan 25 Mg Tablet) 25 mg PO DAILY [facility] Last Admin: 03/01/22 08:06 Dose: 25 mg Documented By: AGUSTIN Metoprolol Succinate (Metoprolol Er 25 Mg Tablet) 25 mg PO BID [facility] Last Admin: 03/01/22 10:28 Dose: 25 mg Documented By: AGUSTIN Mycophenolate Mofetil (Mycophenolate Mofetil 500 Mg Tablet) 500 mg PO BID [facility] Mycophenolate Mofetil (Mycophenolate Mofetil 500 Mg Tablet) 500 mg PO NOW ONE Stop: 03/01/22 07:31 Last Admin: 03/01/22 07:22 Dose: 500 mg Documented By: MANDY Ondansetron HCl (Ondansetron 4 Mg/2 Ml Inj) 4 mg IV Q6HR PRN PRN Reason: Nausea Last Admin: 03/01/22 14:22 Dose: 4 mg Documented By: Admin: 02/28/22 19:45 Dose: 4 mg Documented By: OW Oxycodone HCl (Oxycodone Ir 5 Mg Tablet) 10 mg PO NOW ONE Stop: 02/27/22 19:04 Last Admin: 02/27/22 19:26 Dose: 10 mg Documented By: AT Oxycodone HCl (Oxycodone Ir 10 Mg Tablet) 10 mg PO Q6HR PRN PRN Reason: Pain, Severe (7-10) Oxycodone HCl (Oxycodone Ir 5 Mg Tablet) 5 mg PO PRN PRN PRN Reason: Pain, Severe (7-10) Oxycodone HCl (Oxycodone Ir 5 Mg Tablet) 5 mg PO Q6H PRN PRN Reason: Pain, Severe (7-10) Last Admin: 03/01/22 14:24 Dose: 5 mg Documented By: Admin: 03/01/22 08:05 Dose: 5 mg Documented By: Admin: 03/01/22 02:26 Dose: 5 mg Documented By: Admin: 02/28/22 19:58 Dose: 5 mg Documented By: Admin: 02/28/22 14:21 Dose: 5 mg Documented By: Admin: 02/28/22 08:27 Dose: 5 mg Documented By: LIZZETTE Pantoprazole Sodium (Pantoprazole 40 Mg Vial) 40 mg IV NOW ONE Stop: 02/28/22 20:04 Last Admin: 02/28/22 20:15 Dose: 40 mg Documented By: BECKI Pantoprazole Sodium (Pantoprazole Dr 20 Mg Tablet) 40 mg PO DAILY [facility] Last Admin: 03/01/22 10:48 Dose: Not Given Documented By: AGUSTIN Pantoprazole Sodium (Pantoprazole Dr 40 Mg Tablet) 40 mg PO DAILY [facility] Last Admin: 03/01/22 10:28 Dose: 40 mg Documented By: AGUSTIN Quetiapine Fumarate (Quetiapine 25 Mg Tablet) 25 mg PO BEDTIME [facility] Rifaximin (Rifaximin 550 Mg Tablet) 550 mg PO BID [facility] Last Admin: 03/01/22 10:27 Dose: 550 mg Documented By: AGUSTIN Sodium Polystyrene Sulfonate (Sodium Polystyrene Sulfon/Sorb 15 Gm/60 Ml Cup) 30 gm PO NOW ONE Stop: 02/27/22 21:28 Last Admin: 02/27/22 22:04 Dose: 30 gm Documented By: AT Sodium Polystyrene Sulfonate (Sodium Polystyrene Sulfon/Sorb 15 Gm/60 Ml Cup) 30 gm PO NOW ONE Stop: 02/28/22 14:14 Last Admin: 02/28/22 14:22 Dose: 30 gm Documented By: DELFIN Thiamine HCl (Thiamine 100 Mg Tablet) 100 mg PO DAILY [facility] Last Admin: 03/01/22 10:27 Dose: 100 mg Documented By: AGUSTIN Ursodiol (Ursodiol 300 Mg Capsule) 300 mg PO BID [facility] Last Admin: 03/01/22 10:28 Dose: 300 mg Documented By: AGUSTIN Vitamin D (Cholecalciferol (Vitamin D3) 1,000 Unit Tablet) 1,000 unit PO DAILY [facility] Last Admin: 03/01/22 12:19 Dose: 1,000 unit Documented By: AGUSTIN Vital Signs Vital signs: Vital Signs - 8 hr 03/01/22 10:28 03/01/22 10:30 03/01/22 11:00 Pulse Rate 76 70 Respiratory Rate 28 H 14 Blood Pressure 168/100 H Pulse Oximetry 97 98 Oxygen Delivery Method 03/01/22 11:01 03/01/22 11:01 03/01/22 11:30 Pulse Rate 69 69 Respiratory Rate 15 14 Blood Pressure 185/95 H Pulse Oximetry 98 98 Oxygen Delivery Method 03/01/22 12:17 03/01/22 12:00 03/01/22 12:01 Pulse Rate 78 72 72 Respiratory Rate 12 15 Blood Pressure 183/92 H Pulse Oximetry 97 98 Oxygen Delivery Method 03/01/22 12:01 03/01/22 12:30 03/01/22 13:00 Pulse Rate 82 77 Respiratory Rate 11 L 22 Blood Pressure 183/92 H Pulse Oximetry 99 97 Oxygen Delivery Method 03/01/22 13:01 03/01/22 13:01 03/01/22 13:30 Pulse Rate 80 77 Respiratory Rate 21 29 H Blood Pressure 179/108 H Pulse Oximetry 96 98 Oxygen Delivery Method Room Air 03/01/22 14:00 Pulse Rate 77 Respiratory Rate 15 Blood Pressure Pulse Oximetry 97 Oxygen Delivery Method MDM - Recheck/Abnormal Lab/Rx <Yanique Hoyt, DO - Last Filed: 02/28/22 06:52> Lab Data Result diagrams: 02/28/22 11:39 03/01/22 08:36 Labs: Lab Results 02/27/22 02/27/22 02/27/22 Range/Units 08:05 17:45 20:25 Hgb (13.5-17.5) g/dL Hct (41-53) % PT (10.1-12.7) SECONDS INR (0.9-1.3) APTT (26.4-36.2) SECONDS Sodium 135 L (137-145) mmol/L Potassium 5.4 H (3.4-5.1) mmol/L Chloride 110 H (98-107) mmol/L Carbon Dioxide 18 L (22-32) mmol/L BUN 98 H (9-20) mg/dL Creatinine 5.55 H (0.66-1.25) mg/dL Estimated GFR 11 L (>60) mL/min BUN/Creatinine Ratio 17.7 (6-22) Glucose 152 H (70-100) mg/dL Calcium 8.6 (8.4-10.2) mg/dL Phosphorus (2.5-4.5) mg/dL Magnesium (1.6-2.3) mg/dL Total Bilirubin 0.9 (0.2-1.3) mg/dL AST 29 (17-59) IU/L ALT 11 (<50) IU/L Alkaline Phosphatase 192 H (38-126) U/L Ammonia (9-30) umol/L Total Protein 5.9 L (6.3-8.2) g/dL Albumin 2.8 L (3.5-5.0) g/dL Globulin 3.1 (1.7-4.1) g/dL Albumin/Globulin Ratio 0.9 L (1.0-2.8) Lipase (23-300) U/L Urine Color Yellow Urine Appearance Clear Urine pH 5.0 (4.5-8.0) Ur Specific [place] 1.015 (1.000-1.035) Urine Protein 2+ H (Negative) Urine Glucose (UA) Negative (Negative) g/dL Urine Ketones Negative (NEGATIVE) Urine Occult Blood 3+ H (Negative) Urine Nitrate Negative (Negative) Urine Bilirubin Negative (NEGATIVE) Urine Urobilinogen 0.2 (0.2) E.U./dL Ur Leukocyte Esterase Trace H (NEGATIVE) Urine RBC 10-30/hpf H (0-5/HPF) Urine WBC 1-5/hpf (0-5/HPF) Ur Squamous Epith Cells 0-1 /hpf (0-5/HPF) Urine Bacteria Few (2-10) H (None) Ur Culture Indicated? Specimen cultured U Opiates 300ng/mL cut (Negative) Ur Oxycodone Screen (Negative) Urine Methadone Screen (Negative) Ur Barbiturates Screen (Negative) U Tricyclic Antidepress (Negative) Ur Phencyclidine Scrn (Negative) Ur Amphetamines Screen (Negative) U Methamphetamines Scrn (Negative) Ur MDMA Scrn (Ecstasy) (Negative) U Benzodiazepines Scrn (Negative) Urine Cocaine Screen (Negative) U Marijuana (THC) Screen (Negative) SARS-CoV-2 (PCR) Negative (Negative) 02/28/22 02/28/22 02/28/22 Range/Units 01:19 01:19 07:25 Hgb (13.5-17.5) g/dL Hct (41-53) % PT (10.1-12.7) SECONDS INR (0.9-1.3) APTT (26.4-36.2) SECONDS Sodium 138 136 L (137-145) mmol/L Potassium 5.3 H 6.4 H* (3.4-5.1) mmol/L Chloride 111 H 112 H (98-107) mmol/L Carbon Dioxide 18 L 17 L (22-32) mmol/L BUN 98 H 99 H (9-20) mg/dL Creatinine 5.39 H 5.18 H (0.66-1.25) mg/dL Estimated GFR 12 L 12 L (>60) mL/min BUN/Creatinine Ratio 18.2 19.1 (6-22) Glucose 118 H 133 H (70-100) mg/dL Calcium 8.7 8.6 (8.4-10.2) mg/dL Phosphorus 5.7 H (2.5-4.5) mg/dL Magnesium 2.5 H (1.6-2.3) mg/dL Total Bilirubin 0.9 (0.2-1.3) mg/dL AST 44 (17-59) IU/L ALT 12 (<50) IU/L Alkaline Phosphatase 200 H (38-126) U/L Ammonia 326 H (9-30) umol/L Total Protein 5.8 L (6.3-8.2) g/dL Albumin 2.7 L (3.5-5.0) g/dL Globulin 3.1 (1.7-4.1) g/dL Albumin/Globulin Ratio 0.9 L (1.0-2.8) Lipase 43 (23-300) U/L Urine Color Urine Appearance Urine pH (4.5-8.0) Ur Specific [place] (1.000-1.035) Urine Protein (Negative) Urine Glucose (UA) (Negative) g/dL Urine Ketones (NEGATIVE) Urine Occult Blood (Negative) Urine Nitrate (Negative) Urine Bilirubin (NEGATIVE) Urine Urobilinogen (0.2) E.U./dL Ur Leukocyte Esterase (NEGATIVE) Urine RBC (0-5/HPF) Urine WBC (0-5/HPF) Ur Squamous Epith Cells (0-5/HPF) Urine Bacteria (None) Ur Culture Indicated? U Opiates 300ng/mL cut (Negative) Ur Oxycodone Screen (Negative) Urine Methadone Screen (Negative) Ur Barbiturates Screen (Negative) U Tricyclic Antidepress (Negative) Ur Phencyclidine Scrn (Negative) Ur Amphetamines Screen (Negative) U Methamphetamines Scrn (Negative) Ur MDMA Scrn (Ecstasy) (Negative) U Benzodiazepines Scrn (Negative) Urine Cocaine Screen (Negative) U Marijuana (THC) Screen (Negative) SARS-CoV-2 (PCR) (Negative) 02/28/22 02/28/22 02/28/22 Range/Units 08:05 08:45 11:06 Hgb (13.5-17.5) g/dL Hct (41-53) % PT (10.1-12.7) SECONDS INR (0.9-1.3) APTT (26.4-36.2) SECONDS Sodium (137-145) mmol/L Potassium 6.6 H* 5.4 H D (3.4-5.1) mmol/L Chloride (98-107) mmol/L Carbon Dioxide (22-32) mmol/L BUN (9-20) mg/dL Creatinine (0.66-1.25) mg/dL Estimated GFR (>60) mL/min BUN/Creatinine Ratio (6-22) Glucose (70-100) mg/dL Calcium (8.4-10.2) mg/dL Phosphorus (2.5-4.5) mg/dL Magnesium (1.6-2.3) mg/dL Total Bilirubin (0.2-1.3) mg/dL AST (17-59) IU/L ALT (<50) IU/L Alkaline Phosphatase (38-126) U/L Ammonia (9-30) umol/L Total Protein (6.3-8.2) g/dL Albumin (3.5-5.0) g/dL Globulin (1.7-4.1) g/dL Albumin/Globulin Ratio (1.0-2.8) Lipase (23-300) U/L Urine Color Urine Appearance Urine pH (4.5-8.0) Ur Specific [place] (1.000-1.035) Urine Protein (Negative) Urine Glucose (UA) (Negative) g/dL Urine Ketones (NEGATIVE) Urine Occult Blood (Negative) Urine Nitrate (Negative) Urine Bilirubin (NEGATIVE) Urine Urobilinogen (0.2) E.U./dL Ur Leukocyte Esterase (NEGATIVE) Urine RBC (0-5/HPF) Urine WBC (0-5/HPF) Ur Squamous Epith Cells (0-5/HPF) Urine Bacteria (None) Ur Culture Indicated? U Opiates 300ng/mL cut Negative (Negative) Ur Oxycodone Screen Positive H (Negative) Urine Methadone Screen Negative (Negative) Ur Barbiturates Screen Negative (Negative) U Tricyclic Antidepress Negative (Negative) Ur Phencyclidine Scrn Negative (Negative) Ur Amphetamines Screen Negative (Negative) U Methamphetamines Scrn Negative (Negative) Ur MDMA Scrn (Ecstasy) Negative (Negative) U Benzodiazepines Scrn Negative (Negative) Urine Cocaine Screen Negative (Negative) U Marijuana (THC) Screen Positive H (Negative) SARS-CoV-2 (PCR) (Negative) 02/28/22 02/28/22 02/28/22 Range/Units 11:39 11:39 16:00 Hgb 7.5 L (13.5-17.5) g/dL Hct 22.9 L (41-53) % PT 10.5 (10.1-12.7) SECONDS INR 1.0 (0.9-1.3) APTT 37 H (26.4-36.2) SECONDS Sodium 137 (137-145) mmol/L Potassium 5.4 H (3.4-5.1) mmol/L Chloride 110 H (98-107) mmol/L Carbon Dioxide 22 (22-32) mmol/L BUN 96 H (9-20) mg/dL Creatinine 5.20 H (0.66-1.25) mg/dL Estimated GFR 12 L (>60) mL/min BUN/Creatinine Ratio 18.5 (6-22) Glucose 118 H (70-100) mg/dL Calcium 9.3 (8.4-10.2) mg/dL Phosphorus (2.5-4.5) mg/dL Magnesium (1.6-2.3) mg/dL Total Bilirubin (0.2-1.3) mg/dL AST (17-59) IU/L ALT (<50) IU/L Alkaline Phosphatase (38-126) U/L Ammonia (9-30) umol/L Total Protein (6.3-8.2) g/dL Albumin (3.5-5.0) g/dL Globulin (1.7-4.1) g/dL Albumin/Globulin Ratio (1.0-2.8) Lipase (23-300) U/L Urine Color Urine Appearance Urine pH (4.5-8.0) Ur Specific [place] (1.000-1.035) Urine Protein (Negative) Urine Glucose (UA) (Negative) g/dL Urine Ketones (NEGATIVE) Urine Occult Blood (Negative) Urine Nitrate (Negative) Urine Bilirubin (NEGATIVE) Urine Urobilinogen (0.2) E.U./dL Ur Leukocyte Esterase (NEGATIVE) Urine RBC (0-5/HPF) Urine WBC (0-5/HPF) Ur Squamous Epith Cells (0-5/HPF) Urine Bacteria (None) Ur Culture Indicated? U Opiates 300ng/mL cut (Negative) Ur Oxycodone Screen (Negative) Urine Methadone Screen (Negative) Ur Barbiturates Screen (Negative) U Tricyclic Antidepress (Negative) Ur Phencyclidine Scrn (Negative) Ur Amphetamines Screen (Negative) U Methamphetamines Scrn (Negative) Ur MDMA Scrn (Ecstasy) (Negative) U Benzodiazepines Scrn (Negative) Urine Cocaine Screen (Negative) U Marijuana (THC) Screen (Negative) SARS-CoV-2 (PCR) (Negative) 02/28/22 03/01/22 03/01/22 Range/Units 20:00 00:01 04:10 Hgb (13.5-17.5) g/dL Hct (41-53) % PT (10.1-12.7) SECONDS INR (0.9-1.3) APTT (26.4-36.2) SECONDS Sodium 139 (137-145) mmol/L Potassium 5.0 5.1 4.9 (3.4-5.1) mmol/L Chloride 110 H (98-107) mmol/L Carbon Dioxide 20 L (22-32) mmol/L BUN 93 H (9-20) mg/dL Creatinine 5.12 H (0.66-1.25) mg/dL Estimated GFR 12 L (>60) mL/min BUN/Creatinine Ratio 18.2 (6-22) Glucose 104 H (70-100) mg/dL Calcium 9.1 (8.4-10.2) mg/dL Phosphorus (2.5-4.5) mg/dL Magnesium (1.6-2.3) mg/dL Total Bilirubin (0.2-1.3) mg/dL AST (17-59) IU/L ALT (<50) IU/L Alkaline Phosphatase (38-126) U/L Ammonia (9-30) umol/L Total Protein (6.3-8.2) g/dL Albumin (3.5-5.0) g/dL Globulin (1.7-4.1) g/dL Albumin/Globulin Ratio (1.0-2.8) Lipase (23-300) U/L Urine Color Urine Appearance Urine pH (4.5-8.0) Ur Specific [place] (1.000-1.035) Urine Protein (Negative) Urine Glucose (UA) (Negative) g/dL Urine Ketones (NEGATIVE) Urine Occult Blood (Negative) Urine Nitrate (Negative) Urine Bilirubin (NEGATIVE) Urine Urobilinogen (0.2) E.U./dL Ur Leukocyte Esterase (NEGATIVE) Urine RBC (0-5/HPF) Urine WBC (0-5/HPF) Ur Squamous Epith Cells (0-5/HPF) Urine Bacteria (None) Ur Culture Indicated? U Opiates 300ng/mL cut (Negative) Ur Oxycodone Screen (Negative) Urine Methadone Screen (Negative) Ur Barbiturates Screen (Negative) U Tricyclic Antidepress (Negative) Ur Phencyclidine Scrn (Negative) Ur Amphetamines Screen (Negative) U Methamphetamines Scrn (Negative) Ur MDMA Scrn (Ecstasy) (Negative) U Benzodiazepines Scrn (Negative) Urine Cocaine Screen (Negative) U Marijuana (THC) Screen (Negative) SARS-CoV-2 (PCR) (Negative) 03/01/22 03/01/22 Range/Units 08:36 08:36 Hgb (13.5-17.5) g/dL Hct (41-53) % PT (10.1-12.7) SECONDS INR (0.9-1.3) APTT (26.4-36.2) SECONDS Sodium 138 (137-145) mmol/L Potassium 4.9 (3.4-5.1) mmol/L Chloride 112 H (98-107) mmol/L Carbon Dioxide 18 L (22-32) mmol/L BUN 91 H (9-20) mg/dL Creatinine 5.15 H (0.66-1.25) mg/dL Estimated GFR 12 L (>60) mL/min BUN/Creatinine Ratio 17.7 (6-22) Glucose 113 H (70-100) mg/dL Calcium 9.4 (8.4-10.2) mg/dL Phosphorus (2.5-4.5) mg/dL Magnesium (1.6-2.3) mg/dL Total Bilirubin (0.2-1.3) mg/dL AST (17-59) IU/L ALT (<50) IU/L Alkaline Phosphatase (38-126) U/L Ammonia 115 H (9-30) umol/L Total Protein (6.3-8.2) g/dL Albumin (3.5-5.0) g/dL Globulin (1.7-4.1) g/dL Albumin/Globulin Ratio (1.0-2.8) Lipase (23-300) U/L Urine Color Urine Appearance Urine pH (4.5-8.0) Ur Specific [place] (1.000-1.035) Urine Protein (Negative) Urine Glucose (UA) (Negative) g/dL Urine Ketones (NEGATIVE) Urine Occult Blood (Negative) Urine Nitrate (Negative) Urine Bilirubin (NEGATIVE) Urine Urobilinogen (0.2) E.U./dL Ur Leukocyte Esterase (NEGATIVE) Urine RBC (0-5/HPF) Urine WBC (0-5/HPF) Ur Squamous Epith Cells (0-5/HPF) Urine Bacteria (None) Ur Culture Indicated? U Opiates 300ng/mL cut (Negative) Ur Oxycodone Screen (Negative) Urine Methadone Screen (Negative) Ur Barbiturates Screen (Negative) U Tricyclic Antidepress (Negative) Ur Phencyclidine Scrn (Negative) Ur Amphetamines Screen (Negative) U Methamphetamines Scrn (Negative) Ur MDMA Scrn (Ecstasy) (Negative) U Benzodiazepines Scrn (Negative) Urine Cocaine Screen (Negative) U Marijuana (THC) Screen (Negative) SARS-CoV-2 (PCR) (Negative) Point of Care Testing Glucose POC 141 Imaging Data Chest x-ray: Radiologist's Impression: [address] [address] XRay Report Signed Patient: Earnest Wilks MR#: [id number] : 1965 Acct:[id number] Age/Sex: 56 / M Date of Service: 02/27/22 Loc: ED Accession Number: [id number] ?? Procedure: XR chest 1V Ordering Provider: Mei Akhtar D.O. PROCEDURE:? XR CHEST 1V ? INDICATIONS:? sob ? TECHNIQUE:? One view of the chest was acquired.? ? COMPARISON:? [facility], CR, XR CHEST 1V, 02/04/2022, 13:09. ? FINDINGS:? ? Surgical changes and devices:? None.? ? Lungs and pleura:? Lungs are clear.? No pleural effusions or pneumothorax.? Low lung volumes accentuate pulmonary interstitium and heart size. ? Mediastinum:? Mediastinal contours appear normal.? Heart size is normal.? ? Bones and chest wall:? Left shoulder arthroplasty in good position. ? IMPRESSION:? No acute cardiopulmonary findings ? ? ? Approved by: Arthur Cruz M.D. on 02/27/2022 at 18:00 CT scan - abdomen/pelvis: Radiologist's Impression: Earnest Wilks??56??M??1965 ? Allergy/Adv: adhesive tape, doxylamine, venom-honey bee, pseudoephedrine, codeine, dextromethorphan, NSAIDS (Non-Steroidal Anti-Inflamma, copper, morphine, oxycodone, tizanidine (More??) Close Abdomen/Pelvis CT (Signed) Dom Berman - 02/27/22 Chest X-Ray (Signed) Arthur Cruz - 02/27/[address] (Signed) Aj Doyle - 02/16/22 Chest X-Ray (Signed) Sinan Rhoades - 02/04/22 Chest X-Ray (Signed) Josefina Riddle - 02/03/22 Chest X-Ray (Signed) Hermann Fung - 02/03/22 Chest X-Ray (Signed) Josefina Riddle - 02/03/22 Telemetry Strips 02/02/22 Renal Ultrasound (Signed) Abbi Ordonez - 02/01/22 Echocardiogram Ultrasound (Signed) Peggy Iyer - 02/01/22 Chest X-Ray (Signed) Call,Aj - 02/01/22 Chest/Abdomen/Pelvis CT (Signed) Hermann Montalvo - 01/19/22 Chest X-Ray (Signed) Dom Berman - 01/18/22 Telemetry Strips 01/18/22 EKG Rpt. 01/17/22 Chest X-Ray (Signed) DavidCheri abbasie - 01/17/22 EKG Rpt. 11/26/[address] (Signed) David,Mitchell - 11/26/[address] (Signed) David,Mitchell - 11/26/21 Chest X-Ray (Signed) David,Mitchell - 11/26/21 EKG Rpt. 11/26/21 Telemetry Strips 06/30/[address] (Signed) Fabien Alvares - 06/30/21 Chest X-Ray (Signed) Josefina Riddle - 06/30/21 EKG Rpt. 06/30/[address] (Signed) Dorothy Rios - 06/24/21 Chest X-Ray (Signed) Kenan Banuelos - 06/24/21 Knee X-Ray (Signed) Josefina Riddle - 05/09/[address] (Signed) Call,Aj - 04/24/21 Knee X-Ray (Signed) Call,Aj - 04/24/21 Knee MRI (Signed) Jefferson Ponce - 03/25/21 Telemetry Strips 01/25/21 Lumbar Spine MRI (Signed) Mitchell Hernandez - 09/21/20 Thoracic Spine MRI (Signed) Cheri Hernandeze - 09/21/20 Telemetry Strips 09/20/20 Ankle X-Ray (Signed) Hermann Montalvo - 09/20/20 Ankle X-Ray (Signed) Hermann Montalvo - 09/20/[address] (Signed) Dorothy Rios - 09/20/[address] (Signed) Kenan Banuelos - 09/20/[address] (Signed) Kenan Banuelos - 09/20/20 Tibia/Fibula X-Ray (Signed) Kenan Banuelos - 09/20/20 Tibia/Fibula X-Ray (Signed) Kenan Banuelos - 09/20/[address] (Signed) Kenan Banuelos - 09/20/20 Chest X-Ray (Signed) MendozaJose Manuel - 07/26/20 Abdomen/Pelvis CT (Signed) Jose Manuel Mendoza - 07/26/20 Telemetry Strips 06/26/20 Shoulder X-Ray (Signed) RoseDavidflex - 06/26/[address] (Signed) Dwayne Rose - 06/26/[address] (Signed) Dwayne Rose - 06/26/20 Abdomen/Pelvis CT (Signed) BlancaDorothy - 05/13/[address] (Signed) Josefina Riddle - 01/14/[address] (Signed) Josefina Riddle - 01/14/20 Knee X-Ray (Signed) Josefina Riddle - 01/20/19 Launch?[place] [address] CT Scan Report Signed Patient: Earnest Wilks MR#: [id number] : 1965 Acct:[id number] Age/Sex: 56 / M Date of Service: 02/27/22 Loc: Accession Number: [id number] ?? Procedure: CT kidney ureter bladder (KUB) Ordering Provider: Yanique Hoyt D.O. PROCEDURE:? CT KIDNEY URETER BLADDER (KUB) ? INDICATIONS:? acute on chronic renal failure, hyperkalemia ? TECHNIQUE:? Axial sections were acquired from the lung bases to the pubic symphysis.? Coronal and sagittal reformats were performed.? For radiation dose reduction, the following was used: ?automated exposure control, adjustment of mA and/or kV according to patient size.? ? COMPARISON:? [facility], CT, ABDOMEN/PELVIS WITH CONTRAST, 11/09/2014, 20:52.? [facility], CT, CT CHEST ABD PEL WO CON, 01/19/2022, 1:48. ? FINDINGS:? Image quality:? There is metallic streak artifact from patient's right hip prosthesis.? ? Lung bases:? There is mild dependent atelectasis.? ? Heart:? Heart is mildly enlarged.? There is a small hiatal hernia. ? URINARY: Right Kidney and Ureter: ? No stones or hydronephrosis.? There is mild renal cortical thinning.? Nonspecific perinephric stranding is redemonstrated.? No hydroureter.? ? Left Kidney and Ureter: ? No stones or hydronephrosis.? There is mild renal cortical thinning.? Nonspecific perinephric stranding is redemonstrated.? No hydroureter. ? Bladder:? Normal wall thickness. No stones. ? ? ? ABDOMEN: Liver:? Noncontrast evaluation of the liver demonstrates no discrete? mass.? Postsurgical changes are redemonstrated consistent with prior liver transplant. Gallbladder:? Within normal limits without calcified gallstones.? ? Biliary ducts:? No biliary ductal dilatation.? ? Pancreas:? There is a well-circumscribed cyst redemonstrated superior to the pancreas along the gastrohepatic ligament which appears slightly increased in size over time now measuring up to 2.8 x 2.4 cm but has been present compared to prior studies dating back to 11/09/2014 on which it measured 2.5 x 1.9 cm.? The findings likely represent a postsurgical collection such as a lymphocele or seroma. Spleen:? Normal in size.? ? Adrenal Glands:? No adrenal nodules.? ? ? Stomach and Bowel:? Stomach, small bowel loops, and colon are normal in caliber and wall thickness.? No pericecal inflammatory changes to suggest appendicitis.? There is colonic diverticulosis without acute diverticulitis.? Peritoneum:? No abnormal intraperitoneal fluid.? No free air.? ? Ventral Wall: ? No hernia.? Abdominal Nodes:? No retroperitoneal or mesenteric adenopathy by size criteria.? Vessels:? Aorta and inferior vena cava are normal in size.? ? PELVIS: Pelvic Organs:? Unremarkable.? ? Pelvic Nodes: No enlarged lymph nodes.? Miscellaneous: No inguinal hernias identified. ? ? ? Bones:? Multiple [id number] compression deformities are redemonstrated throughout the visualized lower thoracic and lumbar spine.? These appear similar to the prior study. ?Visualized osseous structures demonstrate no suspicious focal lesions. IMPRESSION:? ? 1. No evidence of hydronephrosis. ? 2. Postsurgical changes redemonstrated consistent with prior liver transplant.? No new perihepatic collections or discrete mass identified.? No definite new biliary ductal dilatation.? Evaluation is limited in the absence of intravenous contrast. ? 3. Loculated fluid collection redemonstrated along the gastrohepatic ligament, minimally increased in size over time compared to prior studies dating back to 2014. The findings likely represent a postsurgical collection such as a lymphocele or seroma. ? 4. Multiple compression deformities redemonstrated within the lower thoracic and lumbar spine, similar to the prior study.? ? ? Dictated by: Dom Berman M.D. on 02/27/2022 at 20:45 ? ? Approved by: Dom Berman M.D. on 02/27/2022 at 20:54?? ECG Data Attestation: I personally reviewed and interpreted this ECG as follows: Interpretation: Sinus rhythm rate 68, W[place] 170 QRS [address] No acute ST elevation or depression. No peaked T-waves or sinusoidal changes. EKG 2 shows sinus rhythm rate 80 2p are 170 QRS 84 and QTC of 453. No acute ST elevation depression noted. No peaked T-waves appreciated patient has possibly motion artifact in V3 V2. No sinusoidal changes appreciated. MDM Narrative Medical decision making narrative: This is a 56-year-old male who presents with complaint of renal failure and hyperkalemia. Patient's EKG does not show acute changes, chest x-ray is negative, CT shows slight increase in fluid collection change likely a seroma or lymphocele postoperatively from prior studies in 11/09/2014 today it is 2.8 x 2.4 cm and was 2.5 x 1.9 cm 3 years ago. Patient does have some compression fractures likely causing his plain that he is complaining of this evening. No acute changes appreciated in the kidneys some mild cortical thinning is noted. Patient states he is still making urine. Bradley catheter introduced in the department he has chronic anemia with a hemoglobin of 7.7 today was 8.4 in January. Patient's creatinine has been in the 4.2-4.6 range in January and today is 4.16 and on repeat 5.55 initial potassium was 6.3 is 5.4 on repeat before interventions in the department with a CO2 of 19 followed by 18, sodium 135. Glucose is 152 calcium is normal. Patient's alk-phos is 192 LFTs are otherwise normal. Patient is likely going to need urgent dialysis, consultation with [facility] was initiated as he is a prior transplant patient. Spoke with Medicine, [facility] does not do consult with their nephrology team is what I was told by the coordinator. They recommend holding patient's transplant medications at this time. They do not have any beds available, there is a critical bed shortage all facilities in the region were contacted and patient is on the [facility] regional hotline. He had some worsening mentation, patient is alert still conversant but confused he does have a hepatic history and ammonia levels obtained as in the 300s. Electrolytes are worsening he is 5.3 down from 6 3 and 5 4. CO2, creatinine still significantly elevated glucose is 118 Mag and phos are elevated. Patient was given lactulose for hepatic encephalopathy. Plan for repeat labs in the am @ 0700. Signed out to Dr. Crews while searching for bed for disposition. Patient is on regional hotline [facility] and plan to recontact [facility] today as they stated possible openings. <Mitchell Crews MD - Last Filed: 03/03/22 12:24> Lab Data Labs: Lab Results 02/27/22 02/27/22 02/27/22 Range/Units 08:05 17:45 20:25 Hgb (13.5-17.5) g/dL Hct (41-53) % PT (10.1-12.7) SECONDS INR (0.9-1.3) APTT (26.4-36.2) SECONDS Sodium 135 L (137-145) mmol/L Potassium 5.4 H (3.4-5.1) mmol/L Chloride 110 H (98-107) mmol/L Carbon Dioxide 18 L (22-32) mmol/L BUN 98 H (9-20) mg/dL Creatinine 5.55 H (0.66-1.25) mg/dL Estimated GFR 11 L (>60) mL/min BUN/Creatinine Ratio 17.7 (6-22) Glucose 152 H (70-100) mg/dL Calcium 8.6 (8.4-10.2) mg/dL Phosphorus (2.5-4.5) mg/dL Magnesium (1.6-2.3) mg/dL Total Bilirubin 0.9 (0.2-1.3) mg/dL AST 29 (17-59) IU/L ALT 11 (<50) IU/L Alkaline Phosphatase 192 H (38-126) U/L Ammonia (9-30) umol/L Total Protein 5.9 L (6.3-8.2) g/dL Albumin 2.8 L (3.5-5.0) g/dL Globulin 3.1 (1.7-4.1) g/dL Albumin/Globulin Ratio 0.9 L (1.0-2.8) Lipase (23-300) U/L Urine Color Yellow Urine Appearance Clear Urine pH 5.0 (4.5-8.0) Ur Specific [place] 1.015 (1.000-1.035) Urine Protein 2+ H (Negative) Urine Glucose (UA) Negative (Negative) g/dL Urine Ketones Negative (NEGATIVE) Urine Occult Blood 3+ H (Negative) Urine Nitrate Negative (Negative) Urine Bilirubin Negative (NEGATIVE) Urine Urobilinogen 0.2 (0.2) E.U./dL Ur Leukocyte Esterase Trace H (NEGATIVE) Urine RBC 10-30/hpf H (0-5/HPF) Urine WBC 1-5/hpf (0-5/HPF) Ur Squamous Epith Cells 0-1 /hpf (0-5/HPF) Urine Bacteria Few (2-10) H (None) Ur Culture Indicated? Specimen cultured U Opiates 300ng/mL cut (Negative) Ur Oxycodone Screen (Negative) Urine Methadone Screen (Negative) Ur Barbiturates Screen (Negative) U Tricyclic Antidepress (Negative) Ur Phencyclidine Scrn (Negative) Ur Amphetamines Screen (Negative) U Methamphetamines Scrn (Negative) Ur MDMA Scrn (Ecstasy) (Negative) U Benzodiazepines Scrn (Negative) Urine Cocaine Screen (Negative) U Marijuana (THC) Screen (Negative) SARS-CoV-2 (PCR) Negative (Negative) 02/28/22 02/28/22 02/28/22 Range/Units 01:19 01:19 07:25 Hgb (13.5-17.5) g/dL Hct (41-53) % PT (10.1-12.7) SECONDS INR (0.9-1.3) APTT (26.4-36.2) SECONDS Sodium 138 136 L (137-145) mmol/L Potassium 5.3 H 6.4 H* (3.4-5.1) mmol/L Chloride 111 H 112 H (98-107) mmol/L Carbon Dioxide 18 L 17 L (22-32) mmol/L BUN 98 H 99 H (9-20) mg/dL Creatinine 5.39 H 5.18 H (0.66-1.25) mg/dL Estimated GFR 12 L 12 L (>60) mL/min BUN/Creatinine Ratio 18.2 19.1 (6-22) Glucose 118 H 133 H (70-100) mg/dL Calcium 8.7 8.6 (8.4-10.2) mg/dL Phosphorus 5.7 H (2.5-4.5) mg/dL Magnesium 2.5 H (1.6-2.3) mg/dL Total Bilirubin 0.9 (0.2-1.3) mg/dL AST 44 (17-59) IU/L ALT 12 (<50) IU/L Alkaline Phosphatase 200 H (38-126) U/L Ammonia 326 H (9-30) umol/L Total Protein 5.8 L (6.3-8.2) g/dL Albumin 2.7 L (3.5-5.0) g/dL Globulin 3.1 (1.7-4.1) g/dL Albumin/Globulin Ratio 0.9 L (1.0-2.8) Lipase 43 (23-300) U/L Urine Color Urine Appearance Urine pH (4.5-8.0) Ur Specific [place] (1.000-1.035) Urine Protein (Negative) Urine Glucose (UA) (Negative) g/dL Urine Ketones (NEGATIVE) Urine Occult Blood (Negative) Urine Nitrate (Negative) Urine Bilirubin (NEGATIVE) Urine Urobilinogen (0.2) E.U./dL Ur Leukocyte Esterase (NEGATIVE) Urine RBC (0-5/HPF) Urine WBC (0-5/HPF) Ur Squamous Epith Cells (0-5/HPF) Urine Bacteria (None) Ur Culture Indicated? U Opiates 300ng/mL cut (Negative) Ur Oxycodone Screen (Negative) Urine Methadone Screen (Negative) Ur Barbiturates Screen (Negative) U Tricyclic Antidepress (Negative) Ur Phencyclidine Scrn (Negative) Ur Amphetamines Screen (Negative) U Methamphetamines Scrn (Negative) Ur MDMA Scrn (Ecstasy) (Negative) U Benzodiazepines Scrn (Negative) Urine Cocaine Screen (Negative) U Marijuana (THC) Screen (Negative) SARS-CoV-2 (PCR) (Negative) 02/28/22 02/28/22 02/28/22 Range/Units 08:05 08:45 11:06 Hgb (13.5-17.5) g/dL Hct (41-53) % PT (10.1-12.7) SECONDS INR (0.9-1.3) APTT (26.4-36.2) SECONDS Sodium (137-145) mmol/L Potassium 6.6 H* 5.4 H D (3.4-5.1) mmol/L Chloride (98-107) mmol/L Carbon Dioxide (22-32) mmol/L BUN (9-20) mg/dL Creatinine (0.66-1.25) mg/dL Estimated GFR (>60) mL/min BUN/Creatinine Ratio (6-22) Glucose (70-100) mg/dL Calcium (8.4-10.2) mg/dL Phosphorus (2.5-4.5) mg/dL Magnesium (1.6-2.3) mg/dL Total Bilirubin (0.2-1.3) mg/dL AST (17-59) IU/L ALT (<50) IU/L Alkaline Phosphatase (38-126) U/L Ammonia (9-30) umol/L Total Protein (6.3-8.2) g/dL Albumin (3.5-5.0) g/dL Globulin (1.7-4.1) g/dL Albumin/Globulin Ratio (1.0-2.8) Lipase (23-300) U/L Urine Color Urine Appearance Urine pH (4.5-8.0) Ur Specific [place] (1.000-1.035) Urine Protein (Negative) Urine Glucose (UA) (Negative) g/dL Urine Ketones (NEGATIVE) Urine Occult Blood (Negative) Urine Nitrate (Negative) Urine Bilirubin (NEGATIVE) Urine Urobilinogen (0.2) E.U./dL Ur Leukocyte Esterase (NEGATIVE) Urine RBC (0-5/HPF) Urine WBC (0-5/HPF) Ur Squamous Epith Cells (0-5/HPF) Urine Bacteria (None) Ur Culture Indicated? U Opiates 300ng/mL cut Negative (Negative) Ur Oxycodone Screen Positive H (Negative) Urine Methadone Screen Negative (Negative) Ur Barbiturates Screen Negative (Negative) U Tricyclic Antidepress Negative (Negative) Ur Phencyclidine Scrn Negative (Negative) Ur Amphetamines Screen Negative (Negative) U Methamphetamines Scrn Negative (Negative) Ur MDMA Scrn (Ecstasy) Negative (Negative) U Benzodiazepines Scrn Negative (Negative) Urine Cocaine Screen Negative (Negative) U Marijuana (THC) Screen Positive H (Negative) SARS-CoV-2 (PCR) (Negative) 02/28/22 02/28/22 02/28/22 Range/Units 11:39 11:39 16:00 Hgb 7.5 L (13.5-17.5) g/dL Hct 22.9 L (41-53) % PT 10.5 (10.1-12.7) SECONDS INR 1.0 (0.9-1.3) APTT 37 H (26.4-36.2) SECONDS Sodium 137 (137-145) mmol/L Potassium 5.4 H (3.4-5.1) mmol/L Chloride 110 H (98-107) mmol/L Carbon Dioxide 22 (22-32) mmol/L BUN 96 H (9-20) mg/dL Creatinine 5.20 H (0.66-1.25) mg/dL Estimated GFR 12 L (>60) mL/min BUN/Creatinine Ratio 18.5 (6-22) Glucose 118 H (70-100) mg/dL Calcium 9.3 (8.4-10.2) mg/dL Phosphorus (2.5-4.5) mg/dL Magnesium (1.6-2.3) mg/dL Total Bilirubin (0.2-1.3) mg/dL AST (17-59) IU/L ALT (<50) IU/L Alkaline Phosphatase (38-126) U/L Ammonia (9-30) umol/L Total Protein (6.3-8.2) g/dL Albumin (3.5-5.0) g/dL Globulin (1.7-4.1) g/dL Albumin/Globulin Ratio (1.0-2.8) Lipase (23-300) U/L Urine Color Urine Appearance Urine pH (4.5-8.0) Ur Specific [place] (1.000-1.035) Urine Protein (Negative) Urine Glucose (UA) (Negative) g/dL Urine Ketones (NEGATIVE) Urine Occult Blood (Negative) Urine Nitrate (Negative) Urine Bilirubin (NEGATIVE) Urine Urobilinogen (0.2) E.U./dL Ur Leukocyte Esterase (NEGATIVE) Urine RBC (0-5/HPF) Urine WBC (0-5/HPF) Ur Squamous Epith Cells (0-5/HPF) Urine Bacteria (None) Ur Culture Indicated? U Opiates 300ng/mL cut (Negative) Ur Oxycodone Screen (Negative) Urine Methadone Screen (Negative) Ur Barbiturates Screen (Negative) U Tricyclic Antidepress (Negative) Ur Phencyclidine Scrn (Negative) Ur Amphetamines Screen (Negative) U Methamphetamines Scrn (Negative) Ur MDMA Scrn (Ecstasy) (Negative) U Benzodiazepines Scrn (Negative) Urine Cocaine Screen (Negative) U Marijuana (THC) Screen (Negative) SARS-CoV-2 (PCR) (Negative) 02/28/22 03/01/22 03/01/22 Range/Units 20:00 00:01 04:10 Hgb (13.5-17.5) g/dL Hct (41-53) % PT (10.1-12.7) SECONDS INR (0.9-1.3) APTT (26.4-36.2) SECONDS Sodium 139 (137-145) mmol/L Potassium 5.0 5.1 4.9 (3.4-5.1) mmol/L Chloride 110 H (98-107) mmol/L Carbon Dioxide 20 L (22-32) mmol/L BUN 93 H (9-20) mg/dL Creatinine 5.12 H (0.66-1.25) mg/dL Estimated GFR 12 L (>60) mL/min BUN/Creatinine Ratio 18.2 (6-22) Glucose 104 H (70-100) mg/dL Calcium 9.1 (8.4-10.2) mg/dL Phosphorus (2.5-4.5) mg/dL Magnesium (1.6-2.3) mg/dL Total Bilirubin (0.2-1.3) mg/dL AST (17-59) IU/L ALT (<50) IU/L Alkaline Phosphatase (38-126) U/L Ammonia (9-30) umol/L Total Protein (6.3-8.2) g/dL Albumin (3.5-5.0) g/dL Globulin (1.7-4.1) g/dL Albumin/Globulin Ratio (1.0-2.8) Lipase (23-300) U/L Urine Color Urine Appearance Urine pH (4.5-8.0) Ur Specific [place] (1.000-1.035) Urine Protein (Negative) Urine Glucose (UA) (Negative) g/dL Urine Ketones (NEGATIVE) Urine Occult Blood (Negative) Urine Nitrate (Negative) Urine Bilirubin (NEGATIVE) Urine Urobilinogen (0.2) E.U./dL Ur Leukocyte Esterase (NEGATIVE) Urine RBC (0-5/HPF) Urine WBC (0-5/HPF) Ur Squamous Epith Cells (0-5/HPF) Urine Bacteria (None) Ur Culture Indicated? U Opiates 300ng/mL cut (Negative) Ur Oxycodone Screen (Negative) Urine Methadone Screen (Negative) Ur Barbiturates Screen (Negative) U Tricyclic Antidepress (Negative) Ur Phencyclidine Scrn (Negative) Ur Amphetamines Screen (Negative) U Methamphetamines Scrn (Negative) Ur MDMA Scrn (Ecstasy) (Negative) U Benzodiazepines Scrn (Negative) Urine Cocaine Screen (Negative) U Marijuana (THC) Screen (Negative) SARS-CoV-2 (PCR) (Negative) 03/01/22 03/01/22 Range/Units 08:36 08:36 Hgb (13.5-17.5) g/dL Hct (41-53) % PT (10.1-12.7) SECONDS INR (0.9-1.3) APTT (26.4-36.2) SECONDS Sodium 138 (137-145) mmol/L Potassium 4.9 (3.4-5.1) mmol/L Chloride 112 H (98-107) mmol/L Carbon Dioxide 18 L (22-32) mmol/L BUN 91 H (9-20) mg/dL Creatinine 5.15 H (0.66-1.25) mg/dL Estimated GFR 12 L (>60) mL/min BUN/Creatinine Ratio 17.7 (6-22) Glucose 113 H (70-100) mg/dL Calcium 9.4 (8.4-10.2) mg/dL Phosphorus (2.5-4.5) mg/dL Magnesium (1.6-2.3) mg/dL Total Bilirubin (0.2-1.3) mg/dL AST (17-59) IU/L ALT (<50) IU/L Alkaline Phosphatase (38-126) U/L Ammonia 115 H (9-30) umol/L Total Protein (6.3-8.2) g/dL Albumin (3.5-5.0) g/dL Globulin (1.7-4.1) g/dL Albumin/Globulin Ratio (1.0-2.8) Lipase (23-300) U/L Urine Color Urine Appearance Urine pH (4.5-8.0) Ur Specific [place] (1.000-1.035) Urine Protein (Negative) Urine Glucose (UA) (Negative) g/dL Urine Ketones (NEGATIVE) Urine Occult Blood (Negative) Urine Nitrate (Negative) Urine Bilirubin (NEGATIVE) Urine Urobilinogen (0.2) E.U./dL Ur Leukocyte Esterase (NEGATIVE) Urine RBC (0-5/HPF) Urine WBC (0-5/HPF) Ur Squamous Epith Cells (0-5/HPF) Urine Bacteria (None) Ur Culture Indicated? U Opiates 300ng/mL cut (Negative) Ur Oxycodone Screen (Negative) Urine Methadone Screen (Negative) Ur Barbiturates Screen (Negative) U Tricyclic Antidepress (Negative) Ur Phencyclidine Scrn (Negative) Ur Amphetamines Screen (Negative) U Methamphetamines Scrn (Negative) Ur MDMA Scrn (Ecstasy) (Negative) U Benzodiazepines Scrn (Negative) Urine Cocaine Screen (Negative) U Marijuana (THC) Screen (Negative) SARS-CoV-2 (PCR) (Negative) Point of Care Testing Glucose POC 141 MDM Narrative Medical decision making narrative: This is a 56-year-old male who presents with complaint of renal failure and hyperkalemia. Patient's EKG does not show acute changes, chest x-ray is negative, CT shows slight increase in fluid collection change likely a seroma or lymphocele postoperatively from prior studies in 11/09/2014 today it is 2.8 x 2.4 cm and was 2.5 x 1.9 cm 3 years ago. Patient does have some compression fractures likely causing his plain that he is complaining of this evening. No acute changes appreciated in the kidneys some mild cortical thinning is noted. Patient states he is still making urine. Bradley catheter introduced in the department he has chronic anemia with a hemoglobin of 7.7 today was 8.4 in January. Patient's creatinine has been in the 4.2-4.6 range in January and today is 4.16 and on repeat 5.55 initial potassium was 6.3 is 5.4 on repeat before interventions in the department with a CO2 of 19 followed by 18, sodium 135. Glucose is 152 calcium is normal. Patient's alk-phos is 192 LFTs are otherwise normal. Patient is likely going to need urgent dialysis, consultation with [facility] was initiated as he is a prior transplant patient. Spoke with Medicine, [facility] does not do consult with their nephrology team is what I was told by the coordinator. They recommend holding patient's transplant medications at this time. They do not have any beds available, there is a critical bed shortage all facilities in the region were contacted and patient is on the [facility] regional hotline. He had some worsening mentation, patient is alert still conversant but confused he does have a hepatic history and ammonia levels obtained as in the 300s. Electrolytes are worsening he is 5.3 down from 6 3 and 5 4. CO2, creatinine still significantly elevated glucose is 118 Mag and phos are elevated. Patient was given lactulose for hepatic encephalopathy. Plan for repeat labs in the am @ 0700. Signed out to Dr. Crews while searching for bed for disposition. Patient is on regional hotline [facility] and plan to recontact [facility] today as they stated possible openings. 1257 02/28/22 Eleonora: Updated on status. Still no accepting facility. We have recalled the [facility], [facility]. Repeat potassium level at 11:06 a.m. is 5.4. He is given a low-potassium a diabetic renal diet. Patient does confirm that he would like to be transferred to a facility where he can get dialysis. Repeat EKG at 8:54 a.m. shows no peaked T-waves. Sinus rhythm with a rate of 79. No stigmata of hyperkalemia 1400: I spoke to Dr. CALLE from hepatology. They do not believe he needs hepatology level care. I then spoke with from [facility] who declines admit to the [facility] much like facility. Then I spoke with Dr. FARIHA Clayton who suggested that perhaps dialysis might not be necessary. There are no outpatient dialysis clots. He says also he has no access to that makes it more difficult. He thought that the dialysis at the [facility] in might have been temporary as when he saw him last last summer he was not requiring dialysis even though his creatinine was a similar level at that time. He is basically lost to follow-up to Dr. Lundberg despite his invitation for the patient to return to his practice. Since were not able to find a facility did take him. I will start to administer Kayexalate with the idea that we might be able to get his potassium stabilized to the point of discharge after few days. We will continue to monitor him closely. We will get him in a regular hospital bed. <Bogdan Tran, - Last Filed: 03/02/22 03:41> Lab Data Labs: Lab Results 02/27/22 02/27/22 02/27/22 Range/Units 08:05 17:45 20:25 Hgb (13.5-17.5) g/dL Hct (41-53) % PT (10.1-12.7) SECONDS INR (0.9-1.3) APTT (26.4-36.2) SECONDS Sodium 135 L (137-145) mmol/L Potassium 5.4 H (3.4-5.1) mmol/L Chloride 110 H (98-107) mmol/L Carbon Dioxide 18 L (22-32) mmol/L BUN 98 H (9-20) mg/dL Creatinine 5.55 H (0.66-1.25) mg/dL Estimated GFR 11 L (>60) mL/min BUN/Creatinine Ratio 17.7 (6-22) Glucose 152 H (70-100) mg/dL Calcium 8.6 (8.4-10.2) mg/dL Phosphorus (2.5-4.5) mg/dL Magnesium (1.6-2.3) mg/dL Total Bilirubin 0.9 (0.2-1.3) mg/dL AST 29 (17-59) IU/L ALT 11 (<50) IU/L Alkaline Phosphatase 192 H (38-126) U/L Ammonia (9-30) umol/L Total Protein 5.9 L (6.3-8.2) g/dL Albumin 2.8 L (3.5-5.0) g/dL Globulin 3.1 (1.7-4.1) g/dL Albumin/Globulin Ratio 0.9 L (1.0-2.8) Lipase (23-300) U/L Urine Color Yellow Urine Appearance Clear Urine pH 5.0 (4.5-8.0) Ur Specific [place] 1.015 (1.000-1.035) Urine Protein 2+ H (Negative) Urine Glucose (UA) Negative (Negative) g/dL Urine Ketones Negative (NEGATIVE) Urine Occult Blood 3+ H (Negative) Urine Nitrate Negative (Negative) Urine Bilirubin Negative (NEGATIVE) Urine Urobilinogen 0.2 (0.2) E.U./dL Ur Leukocyte Esterase Trace H (NEGATIVE) Urine RBC 10-30/hpf H (0-5/HPF) Urine WBC 1-5/hpf (0-5/HPF) Ur Squamous Epith Cells 0-1 /hpf (0-5/HPF) Urine Bacteria Few (2-10) H (None) Ur Culture Indicated? Specimen cultured U Opiates 300ng/mL cut (Negative) Ur Oxycodone Screen (Negative) Urine Methadone Screen (Negative) Ur Barbiturates Screen (Negative) U Tricyclic Antidepress (Negative) Ur Phencyclidine Scrn (Negative) Ur Amphetamines Screen (Negative) U Methamphetamines Scrn (Negative) Ur MDMA Scrn (Ecstasy) (Negative) U Benzodiazepines Scrn (Negative) Urine Cocaine Screen (Negative) U Marijuana (THC) Screen (Negative) SARS-CoV-2 (PCR) Negative (Negative) 02/28/22 02/28/22 02/28/22 Range/Units 01:19 01:19 07:25 Hgb (13.5-17.5) g/dL Hct (41-53) % PT (10.1-12.7) SECONDS INR (0.9-1.3) APTT (26.4-36.2) SECONDS Sodium 138 136 L (137-145) mmol/L Potassium 5.3 H 6.4 H* (3.4-5.1) mmol/L Chloride 111 H 112 H (98-107) mmol/L Carbon Dioxide 18 L 17 L (22-32) mmol/L BUN 98 H 99 H (9-20) mg/dL Creatinine 5.39 H 5.18 H (0.66-1.25) mg/dL Estimated GFR 12 L 12 L (>60) mL/min BUN/Creatinine Ratio 18.2 19.1 (6-22) Glucose 118 H 133 H (70-100) mg/dL Calcium 8.7 8.6 (8.4-10.2) mg/dL Phosphorus 5.7 H (2.5-4.5) mg/dL Magnesium 2.5 H (1.6-2.3) mg/dL Total Bilirubin 0.9 (0.2-1.3) mg/dL AST 44 (17-59) IU/L ALT 12 (<50) IU/L Alkaline Phosphatase 200 H (38-126) U/L Ammonia 326 H (9-30) umol/L Total Protein 5.8 L (6.3-8.2) g/dL Albumin 2.7 L (3.5-5.0) g/dL Globulin 3.1 (1.7-4.1) g/dL Albumin/Globulin Ratio 0.9 L (1.0-2.8) Lipase 43 (23-300) U/L Urine Color Urine Appearance Urine pH (4.5-8.0) Ur Specific [place] (1.000-1.035) Urine Protein (Negative) Urine Glucose (UA) (Negative) g/dL Urine Ketones (NEGATIVE) Urine Occult Blood (Negative) Urine Nitrate (Negative) Urine Bilirubin (NEGATIVE) Urine Urobilinogen (0.2) E.U./dL Ur Leukocyte Esterase (NEGATIVE) Urine RBC (0-5/HPF) Urine WBC (0-5/HPF) Ur Squamous Epith Cells (0-5/HPF) Urine Bacteria (None) Ur Culture Indicated? U Opiates 300ng/mL cut (Negative) Ur Oxycodone Screen (Negative) Urine Methadone Screen (Negative) Ur Barbiturates Screen (Negative) U Tricyclic Antidepress (Negative) Ur Phencyclidine Scrn (Negative) Ur Amphetamines Screen (Negative) U Methamphetamines Scrn (Negative) Ur MDMA Scrn (Ecstasy) (Negative) U Benzodiazepines Scrn (Negative) Urine Cocaine Screen (Negative) U Marijuana (THC) Screen (Negative) SARS-CoV-2 (PCR) (Negative) 02/28/22 02/28/22 02/28/22 Range/Units 08:05 08:45 11:06 Hgb (13.5-17.5) g/dL Hct (41-53) % PT (10.1-12.7) SECONDS INR (0.9-1.3) APTT (26.4-36.2) SECONDS Sodium (137-145) mmol/L Potassium 6.6 H* 5.4 H D (3.4-5.1) mmol/L Chloride (98-107) mmol/L Carbon Dioxide (22-32) mmol/L BUN (9-20) mg/dL Creatinine (0.66-1.25) mg/dL Estimated GFR (>60) mL/min BUN/Creatinine Ratio (6-22) Glucose (70-100) mg/dL Calcium (8.4-10.2) mg/dL Phosphorus (2.5-4.5) mg/dL Magnesium (1.6-2.3) mg/dL Total Bilirubin (0.2-1.3) mg/dL AST (17-59) IU/L ALT (<50) IU/L Alkaline Phosphatase (38-126) U/L Ammonia (9-30) umol/L Total Protein (6.3-8.2) g/dL Albumin (3.5-5.0) g/dL Globulin (1.7-4.1) g/dL Albumin/Globulin Ratio (1.0-2.8) Lipase (23-300) U/L Urine Color Urine Appearance Urine pH (4.5-8.0) Ur Specific [place] (1.000-1.035) Urine Protein (Negative) Urine Glucose (UA) (Negative) g/dL Urine Ketones (NEGATIVE) Urine Occult Blood (Negative) Urine Nitrate (Negative) Urine Bilirubin (NEGATIVE) Urine Urobilinogen (0.2) E.U./dL Ur Leukocyte Esterase (NEGATIVE) Urine RBC (0-5/HPF) Urine WBC (0-5/HPF) Ur Squamous Epith Cells (0-5/HPF) Urine Bacteria (None) Ur Culture Indicated? U Opiates 300ng/mL cut Negative (Negative) Ur Oxycodone Screen Positive H (Negative) Urine Methadone Screen Negative (Negative) Ur Barbiturates Screen Negative (Negative) U Tricyclic Antidepress Negative (Negative) Ur Phencyclidine Scrn Negative (Negative) Ur Amphetamines Screen Negative (Negative) U Methamphetamines Scrn Negative (Negative) Ur MDMA Scrn (Ecstasy) Negative (Negative) U Benzodiazepines Scrn Negative (Negative) Urine Cocaine Screen Negative (Negative) U Marijuana (THC) Screen Positive H (Negative) SARS-CoV-2 (PCR) (Negative) 02/28/22 02/28/22 02/28/22 Range/Units 11:39 11:39 16:00 Hgb 7.5 L (13.5-17.5) g/dL Hct 22.9 L (41-53) % PT 10.5 (10.1-12.7) SECONDS INR 1.0 (0.9-1.3) APTT 37 H (26.4-36.2) SECONDS Sodium 137 (137-145) mmol/L Potassium 5.4 H (3.4-5.1) mmol/L Chloride 110 H (98-107) mmol/L Carbon Dioxide 22 (22-32) mmol/L BUN 96 H (9-20) mg/dL Creatinine 5.20 H (0.66-1.25) mg/dL Estimated GFR 12 L (>60) mL/min BUN/Creatinine Ratio 18.5 (6-22) Glucose 118 H (70-100) mg/dL Calcium 9.3 (8.4-10.2) mg/dL Phosphorus (2.5-4.5) mg/dL Magnesium (1.6-2.3) mg/dL Total Bilirubin (0.2-1.3) mg/dL AST (17-59) IU/L ALT (<50) IU/L Alkaline Phosphatase (38-126) U/L Ammonia (9-30) umol/L Total Protein (6.3-8.2) g/dL Albumin (3.5-5.0) g/dL Globulin (1.7-4.1) g/dL Albumin/Globulin Ratio (1.0-2.8) Lipase (23-300) U/L Urine Color Urine Appearance Urine pH (4.5-8.0) Ur Specific [place] (1.000-1.035) Urine Protein (Negative) Urine Glucose (UA) (Negative) g/dL Urine Ketones (NEGATIVE) Urine Occult Blood (Negative) Urine Nitrate (Negative) Urine Bilirubin (NEGATIVE) Urine Urobilinogen (0.2) E.U./dL Ur Leukocyte Esterase (NEGATIVE) Urine RBC (0-5/HPF) Urine WBC (0-5/HPF) Ur Squamous Epith Cells (0-5/HPF) Urine Bacteria (None) Ur Culture Indicated? U Opiates 300ng/mL cut (Negative) Ur Oxycodone Screen (Negative) Urine Methadone Screen (Negative) Ur Barbiturates Screen (Negative) U Tricyclic Antidepress (Negative) Ur Phencyclidine Scrn (Negative) Ur Amphetamines Screen (Negative) U Methamphetamines Scrn (Negative) Ur MDMA Scrn (Ecstasy) (Negative) U Benzodiazepines Scrn (Negative) Urine Cocaine Screen (Negative) U Marijuana (THC) Screen (Negative) SARS-CoV-2 (PCR) (Negative) 02/28/22 03/01/22 03/01/22 Range/Units 20:00 00:01 04:10 Hgb (13.5-17.5) g/dL Hct (41-53) % PT (10.1-12.7) SECONDS INR (0.9-1.3) APTT (26.4-36.2) SECONDS Sodium 139 (137-145) mmol/L Potassium 5.0 5.1 4.9 (3.4-5.1) mmol/L Chloride 110 H (98-107) mmol/L Carbon Dioxide 20 L (22-32) mmol/L BUN 93 H (9-20) mg/dL Creatinine 5.12 H (0.66-1.25) mg/dL Estimated GFR 12 L (>60) mL/min BUN/Creatinine Ratio 18.2 (6-22) Glucose 104 H (70-100) mg/dL Calcium 9.1 (8.4-10.2) mg/dL Phosphorus (2.5-4.5) mg/dL Magnesium (1.6-2.3) mg/dL Total Bilirubin (0.2-1.3) mg/dL AST (17-59) IU/L ALT (<50) IU/L Alkaline Phosphatase (38-126) U/L Ammonia (9-30) umol/L Total Protein (6.3-8.2) g/dL Albumin (3.5-5.0) g/dL Globulin (1.7-4.1) g/dL Albumin/Globulin Ratio (1.0-2.8) Lipase (23-300) U/L Urine Color Urine Appearance Urine pH (4.5-8.0) Ur Specific [place] (1.000-1.035) Urine Protein (Negative) Urine Glucose (UA) (Negative) g/dL Urine Ketones (NEGATIVE) Urine Occult Blood (Negative) Urine Nitrate (Negative) Urine Bilirubin (NEGATIVE) Urine Urobilinogen (0.2) E.U./dL Ur Leukocyte Esterase (NEGATIVE) Urine RBC (0-5/HPF) Urine WBC (0-5/HPF) Ur Squamous Epith Cells (0-5/HPF) Urine Bacteria (None) Ur Culture Indicated? U Opiates 300ng/mL cut (Negative) Ur Oxycodone Screen (Negative) Urine Methadone Screen (Negative) Ur Barbiturates Screen (Negative) U Tricyclic Antidepress (Negative) Ur Phencyclidine Scrn (Negative) Ur Amphetamines Screen (Negative) U Methamphetamines Scrn (Negative) Ur MDMA Scrn (Ecstasy) (Negative) U Benzodiazepines Scrn (Negative) Urine Cocaine Screen (Negative) U Marijuana (THC) Screen (Negative) SARS-CoV-2 (PCR) (Negative) 03/01/22 03/01/22 Range/Units 08:36 08:36 Hgb (13.5-17.5) g/dL Hct (41-53) % PT (10.1-12.7) SECONDS INR (0.9-1.3) APTT (26.4-36.2) SECONDS Sodium 138 (137-145) mmol/L Potassium 4.9 (3.4-5.1) mmol/L Chloride 112 H (98-107) mmol/L Carbon Dioxide 18 L (22-32) mmol/L BUN 91 H (9-20) mg/dL Creatinine 5.15 H (0.66-1.25) mg/dL Estimated GFR 12 L (>60) mL/min BUN/Creatinine Ratio 17.7 (6-22) Glucose 113 H (70-100) mg/dL Calcium 9.4 (8.4-10.2) mg/dL Phosphorus (2.5-4.5) mg/dL Magnesium (1.6-2.3) mg/dL Total Bilirubin (0.2-1.3) mg/dL AST (17-59) IU/L ALT (<50) IU/L Alkaline Phosphatase (38-126) U/L Ammonia 115 H (9-30) umol/L Total Protein (6.3-8.2) g/dL Albumin (3.5-5.0) g/dL Globulin (1.7-4.1) g/dL Albumin/Globulin Ratio (1.0-2.8) Lipase (23-300) U/L Urine Color Urine Appearance Urine pH (4.5-8.0) Ur Specific [place] (1.000-1.035) Urine Protein (Negative) Urine Glucose (UA) (Negative) g/dL Urine Ketones (NEGATIVE) Urine Occult Blood (Negative) Urine Nitrate (Negative) Urine Bilirubin (NEGATIVE) Urine Urobilinogen (0.2) E.U./dL Ur Leukocyte Esterase (NEGATIVE) Urine RBC (0-5/HPF) Urine WBC (0-5/HPF) Ur Squamous Epith Cells (0-5/HPF) Urine Bacteria (None) Ur Culture Indicated? U Opiates 300ng/mL cut (Negative) Ur Oxycodone Screen (Negative) Urine Methadone Screen (Negative) Ur Barbiturates Screen (Negative) U Tricyclic Antidepress (Negative) Ur Phencyclidine Scrn (Negative) Ur Amphetamines Screen (Negative) U Methamphetamines Scrn (Negative) Ur MDMA Scrn (Ecstasy) (Negative) U Benzodiazepines Scrn (Negative) Urine Cocaine Screen (Negative) U Marijuana (THC) Screen (Negative) SARS-CoV-2 (PCR) (Negative) Point of Care Testing Glucose POC 141 MDM Narrative Medical decision making narrative: This is a 56-year-old male who presents with complaint of renal failure and hyperkalemia. Patient's EKG does not show acute changes, chest x-ray is negative, CT shows slight increase in fluid collection change likely a seroma or lymphocele postoperatively from prior studies in 11/09/2014 today it is 2.8 x 2.4 cm and was 2.5 x 1.9 cm 3 years ago. Patient does have some compression fractures likely causing his plain that he is complaining of this evening. No acute changes appreciated in the kidneys some mild cortical thinning is noted. Patient states he is still making urine. Bradley catheter introduced in the department he has chronic anemia with a hemoglobin of 7.7 today was 8.4 in January. Patient's creatinine has been in the 4.2-4.6 range in January and today is 4.16 and on repeat 5.55 initial potassium was 6.3 is 5.4 on repeat before interventions in the department with a CO2 of 19 followed by 18, sodium 135. Glucose is 152 calcium is normal. Patient's alk-phos is 192 LFTs are otherwise normal. Patient is likely going to need urgent dialysis, consultation with [facility] was initiated as he is a prior transplant patient. Spoke with Medicine, [facility] does not do consult with their nephrology team is what I was told by the coordinator. They recommend holding patient's transplant medications at this time. They do not have any beds available, there is a critical bed shortage all facilities in the region were contacted and patient is on the [facility] regional hotline. He had some worsening mentation, patient is alert still conversant but confused he does have a hepatic history and ammonia levels obtained as in the 300s. Electrolytes are worsening he is 5.3 down from 6 3 and 5 4. CO2, creatinine still significantly elevated glucose is 118 Mag and phos are elevated. Patient was given lactulose for hepatic encephalopathy. Plan for repeat labs in the am @ 0700. Signed out to Dr. Crews while searching for bed for disposition. Patient is on regional hotline [facility] and plan to recontact [facility] today as they stated possible openings. 1257 02/28/22 Eleonora: Updated on status. Still no accepting facility. We have recalled the [facility], [facility]. Repeat potassium level at 11:06 a.m. is 5.4. He is given a low-potassium a diabetic renal diet. Patient does confirm that he would like to be transferred to a facility where he can get dialysis. Repeat EKG at 8:54 a.m. shows no peaked T-waves. Sinus rhythm with a rate of 79. No stigmata of hyperkalemia 1400: I spoke to Dr. CALLE from hepatology. They do not believe he needs hepatology level care. I then spoke with from [facility]U who declines admit to the [facility] much like facility. Then I spoke with Dr. FARIHA Clayton who suggested that perhaps dialysis might not be necessary. There are no outpatient dialysis clots. He says also he has no access to that makes it more difficult. He thought that the dialysis at the [facility] in might have been temporary as when he saw him last last summer he was not requiring dialysis even though his creatinine was a similar level at that time. He is basically lost to follow-up to Dr. Lundberg despite his invitation for the patient to return to his practice. Since were not able to find a facility did take him. I will start to administer Kayexalate with the idea that we might be able to get his potassium stabilized to the point of discharge after few days. We will continue to monitor him closely. We will get him in a regular hospital bed. [1800] (Marc) Patient received in sign out from [Eleonora]. I have reviewed the clinical course and performed an independent history and physical exam. Patient still with no available receiving facilities. He is altered, but will respond appropriately. He reluctantly took Lactulose, but has still had no BM. He has no signs of respiratory distress currently. Evening labs pending. 0600 - patient continues to be confused and slow to respond, but seems to perhaps be a bit improved. Repeat labs demonstrate continued stabilization of potassium, most recently 4.9. STill no BM, no respiratory distress. Creatinine still significatnly elevated at 5.1, up from baseline in mid 3s. There appears to be some confusion regarding recommendations regarding use of antirejection meds. Call placed back to to gain clarity Dr. Calle (Hepatology at ) recommends administration of Cellcept and Cyclosporine. These meds, as well as scheduled lactulose and losartan have been ordered. At last check we are atop the list for potential transfers at [facility] and on wait lists at various others <Mei Akhtar, - Last Filed: 03/01/22 18:04> Lab Data Labs: Lab Results 02/27/22 02/27/22 02/27/22 Range/Units 08:05 17:45 20:25 Hgb (13.5-17.5) g/dL Hct (41-53) % PT (10.1-12.7) SECONDS INR (0.9-1.3) APTT (26.4-36.2) SECONDS Sodium 135 L (137-145) mmol/L Potassium 5.4 H (3.4-5.1) mmol/L Chloride 110 H (98-107) mmol/L Carbon Dioxide 18 L (22-32) mmol/L BUN 98 H (9-20) mg/dL Creatinine 5.55 H (0.66-1.25) mg/dL Estimated GFR 11 L (>60) mL/min BUN/Creatinine Ratio 17.7 (6-22) Glucose 152 H (70-100) mg/dL Calcium 8.6 (8.4-10.2) mg/dL Phosphorus (2.5-4.5) mg/dL Magnesium (1.6-2.3) mg/dL Total Bilirubin 0.9 (0.2-1.3) mg/dL AST 29 (17-59) IU/L ALT 11 (<50) IU/L Alkaline Phosphatase 192 H (38-126) U/L Ammonia (9-30) umol/L Total Protein 5.9 L (6.3-8.2) g/dL Albumin 2.8 L (3.5-5.0) g/dL Globulin 3.1 (1.7-4.1) g/dL Albumin/Globulin Ratio 0.9 L (1.0-2.8) Lipase (23-300) U/L Urine Color Yellow Urine Appearance Clear Urine pH 5.0 (4.5-8.0) Ur Specific [place] 1.015 (1.000-1.035) Urine Protein 2+ H (Negative) Urine Glucose (UA) Negative (Negative) g/dL Urine Ketones Negative (NEGATIVE) Urine Occult Blood 3+ H (Negative) Urine Nitrate Negative (Negative) Urine Bilirubin Negative (NEGATIVE) Urine Urobilinogen 0.2 (0.2) E.U./dL Ur Leukocyte Esterase Trace H (NEGATIVE) Urine RBC 10-30/hpf H (0-5/HPF) Urine WBC 1-5/hpf (0-5/HPF) Ur Squamous Epith Cells 0-1 /hpf (0-5/HPF) Urine Bacteria Few (2-10) H (None) Ur Culture Indicated? Specimen cultured U Opiates 300ng/mL cut (Negative) Ur Oxycodone Screen (Negative) Urine Methadone Screen (Negative) Ur Barbiturates Screen (Negative) U Tricyclic Antidepress (Negative) Ur Phencyclidine Scrn (Negative) Ur Amphetamines Screen (Negative) U Methamphetamines Scrn (Negative) Ur MDMA Scrn (Ecstasy) (Negative) U Benzodiazepines Scrn (Negative) Urine Cocaine Screen (Negative) U Marijuana (THC) Screen (Negative) SARS-CoV-2 (PCR) Negative (Negative) 02/28/22 02/28/22 02/28/22 Range/Units 01:19 01:19 07:25 Hgb (13.5-17.5) g/dL Hct (41-53) % PT (10.1-12.7) SECONDS INR (0.9-1.3) APTT (26.4-36.2) SECONDS Sodium 138 136 L (137-145) mmol/L Potassium 5.3 H 6.4 H* (3.4-5.1) mmol/L Chloride 111 H 112 H (98-107) mmol/L Carbon Dioxide 18 L 17 L (22-32) mmol/L BUN 98 H 99 H (9-20) mg/dL Creatinine 5.39 H 5.18 H (0.66-1.25) mg/dL Estimated GFR 12 L 12 L (>60) mL/min BUN/Creatinine Ratio 18.2 19.1 (6-22) Glucose 118 H 133 H (70-100) mg/dL Calcium 8.7 8.6 (8.4-10.2) mg/dL Phosphorus 5.7 H (2.5-4.5) mg/dL Magnesium 2.5 H (1.6-2.3) mg/dL Total Bilirubin 0.9 (0.2-1.3) mg/dL AST 44 (17-59) IU/L ALT 12 (<50) IU/L Alkaline Phosphatase 200 H (38-126) U/L Ammonia 326 H (9-30) umol/L Total Protein 5.8 L (6.3-8.2) g/dL Albumin 2.7 L (3.5-5.0) g/dL Globulin 3.1 (1.7-4.1) g/dL Albumin/Globulin Ratio 0.9 L (1.0-2.8) Lipase 43 (23-300) U/L Urine Color Urine Appearance Urine pH (4.5-8.0) Ur Specific [place] (1.000-1.035) Urine Protein (Negative) Urine Glucose (UA) (Negative) g/dL Urine Ketones (NEGATIVE) Urine Occult Blood (Negative) Urine Nitrate (Negative) Urine Bilirubin (NEGATIVE) Urine Urobilinogen (0.2) E.U./dL Ur Leukocyte Esterase (NEGATIVE) Urine RBC (0-5/HPF) Urine WBC (0-5/HPF) Ur Squamous Epith Cells (0-5/HPF) Urine Bacteria (None) Ur Culture Indicated? U Opiates 300ng/mL cut (Negative) Ur Oxycodone Screen (Negative) Urine Methadone Screen (Negative) Ur Barbiturates Screen (Negative) U Tricyclic Antidepress (Negative) Ur Phencyclidine Scrn (Negative) Ur Amphetamines Screen (Negative) U Methamphetamines Scrn (Negative) Ur MDMA Scrn (Ecstasy) (Negative) U Benzodiazepines Scrn (Negative) Urine Cocaine Screen (Negative) U Marijuana (THC) Screen (Negative) SARS-CoV-2 (PCR) (Negative) 02/28/22 02/28/22 02/28/22 Range/Units 08:05 08:45 11:06 Hgb (13.5-17.5) g/dL Hct (41-53) % PT (10.1-12.7) SECONDS INR (0.9-1.3) APTT (26.4-36.2) SECONDS Sodium (137-145) mmol/L Potassium 6.6 H* 5.4 H D (3.4-5.1) mmol/L Chloride (98-107) mmol/L Carbon Dioxide (22-32) mmol/L BUN (9-20) mg/dL Creatinine (0.66-1.25) mg/dL Estimated GFR (>60) mL/min BUN/Creatinine Ratio (6-22) Glucose (70-100) mg/dL Calcium (8.4-10.2) mg/dL Phosphorus (2.5-4.5) mg/dL Magnesium (1.6-2.3) mg/dL Total Bilirubin (0.2-1.3) mg/dL AST (17-59) IU/L ALT (<50) IU/L Alkaline Phosphatase (38-126) U/L Ammonia (9-30) umol/L Total Protein (6.3-8.2) g/dL Albumin (3.5-5.0) g/dL Globulin (1.7-4.1) g/dL Albumin/Globulin Ratio (1.0-2.8) Lipase (23-300) U/L Urine Color Urine Appearance Urine pH (4.5-8.0) Ur Specific [place] (1.000-1.035) Urine Protein (Negative) Urine Glucose (UA) (Negative) g/dL Urine Ketones (NEGATIVE) Urine Occult Blood (Negative) Urine Nitrate (Negative) Urine Bilirubin (NEGATIVE) Urine Urobilinogen (0.2) E.U./dL Ur Leukocyte Esterase (NEGATIVE) Urine RBC (0-5/HPF) Urine WBC (0-5/HPF) Ur Squamous Epith Cells (0-5/HPF) Urine Bacteria (None) Ur Culture Indicated? U Opiates 300ng/mL cut Negative (Negative) Ur Oxycodone Screen Positive H (Negative) Urine Methadone Screen Negative (Negative) Ur Barbiturates Screen Negative (Negative) U Tricyclic Antidepress Negative (Negative) Ur Phencyclidine Scrn Negative (Negative) Ur Amphetamines Screen Negative (Negative) U Methamphetamines Scrn Negative (Negative) Ur MDMA Scrn (Ecstasy) Negative (Negative) U Benzodiazepines Scrn Negative (Negative) Urine Cocaine Screen Negative (Negative) U Marijuana (THC) Screen Positive H (Negative) SARS-CoV-2 (PCR) (Negative) 02/28/22 02/28/22 02/28/22 Range/Units 11:39 11:39 16:00 Hgb 7.5 L (13.5-17.5) g/dL Hct 22.9 L (41-53) % PT 10.5 (10.1-12.7) SECONDS INR 1.0 (0.9-1.3) APTT 37 H (26.4-36.2) SECONDS Sodium 137 (137-145) mmol/L Potassium 5.4 H (3.4-5.1) mmol/L Chloride 110 H (98-107) mmol/L Carbon Dioxide 22 (22-32) mmol/L BUN 96 H (9-20) mg/dL Creatinine 5.20 H (0.66-1.25) mg/dL Estimated GFR 12 L (>60) mL/min BUN/Creatinine Ratio 18.5 (6-22) Glucose 118 H (70-100) mg/dL Calcium 9.3 (8.4-10.2) mg/dL Phosphorus (2.5-4.5) mg/dL Magnesium (1.6-2.3) mg/dL Total Bilirubin (0.2-1.3) mg/dL AST (17-59) IU/L ALT (<50) IU/L Alkaline Phosphatase (38-126) U/L Ammonia (9-30) umol/L Total Protein (6.3-8.2) g/dL Albumin (3.5-5.0) g/dL Globulin (1.7-4.1) g/dL Albumin/Globulin Ratio (1.0-2.8) Lipase (23-300) U/L Urine Color Urine Appearance Urine pH (4.5-8.0) Ur Specific [place] (1.000-1.035) Urine Protein (Negative) Urine Glucose (UA) (Negative) g/dL Urine Ketones (NEGATIVE) Urine Occult Blood (Negative) Urine Nitrate (Negative) Urine Bilirubin (NEGATIVE) Urine Urobilinogen (0.2) E.U./dL Ur Leukocyte Esterase (NEGATIVE) Urine RBC (0-5/HPF) Urine WBC (0-5/HPF) Ur Squamous Epith Cells (0-5/HPF) Urine Bacteria (None) Ur Culture Indicated? U Opiates 300ng/mL cut (Negative) Ur Oxycodone Screen (Negative) Urine Methadone Screen (Negative) Ur Barbiturates Screen (Negative) U Tricyclic Antidepress (Negative) Ur Phencyclidine Scrn (Negative) Ur Amphetamines Screen (Negative) U Methamphetamines Scrn (Negative) Ur MDMA Scrn (Ecstasy) (Negative) U Benzodiazepines Scrn (Negative) Urine Cocaine Screen (Negative) U Marijuana (THC) Screen (Negative) SARS-CoV-2 (PCR) (Negative) 02/28/22 03/01/22 03/01/22 Range/Units 20:00 00:01 04:10 Hgb (13.5-17.5) g/dL Hct (41-53) % PT (10.1-12.7) SECONDS INR (0.9-1.3) APTT (26.4-36.2) SECONDS Sodium 139 (137-145) mmol/L Potassium 5.0 5.1 4.9 (3.4-5.1) mmol/L Chloride 110 H (98-107) mmol/L Carbon Dioxide 20 L (22-32) mmol/L BUN 93 H (9-20) mg/dL Creatinine 5.12 H (0.66-1.25) mg/dL Estimated GFR 12 L (>60) mL/min BUN/Creatinine Ratio 18.2 (6-22) Glucose 104 H (70-100) mg/dL Calcium 9.1 (8.4-10.2) mg/dL Phosphorus (2.5-4.5) mg/dL Magnesium (1.6-2.3) mg/dL Total Bilirubin (0.2-1.3) mg/dL AST (17-59) IU/L ALT (<50) IU/L Alkaline Phosphatase (38-126) U/L Ammonia (9-30) umol/L Total Protein (6.3-8.2) g/dL Albumin (3.5-5.0) g/dL Globulin (1.7-4.1) g/dL Albumin/Globulin Ratio (1.0-2.8) Lipase (23-300) U/L Urine Color Urine Appearance Urine pH (4.5-8.0) Ur Specific [place] (1.000-1.035) Urine Protein (Negative) Urine Glucose (UA) (Negative) g/dL Urine Ketones (NEGATIVE) Urine Occult Blood (Negative) Urine Nitrate (Negative) Urine Bilirubin (NEGATIVE) Urine Urobilinogen (0.2) E.U./dL Ur Leukocyte Esterase (NEGATIVE) Urine RBC (0-5/HPF) Urine WBC (0-5/HPF) Ur Squamous Epith Cells (0-5/HPF) Urine Bacteria (None) Ur Culture Indicated? U Opiates 300ng/mL cut (Negative) Ur Oxycodone Screen (Negative) Urine Methadone Screen (Negative) Ur Barbiturates Screen (Negative) U Tricyclic Antidepress (Negative) Ur Phencyclidine Scrn (Negative) Ur Amphetamines Screen (Negative) U Methamphetamines Scrn (Negative) Ur MDMA Scrn (Ecstasy) (Negative) U Benzodiazepines Scrn (Negative) Urine Cocaine Screen (Negative) U Marijuana (THC) Screen (Negative) SARS-CoV-2 (PCR) (Negative) 03/01/22 03/01/22 Range/Units 08:36 08:36 Hgb (13.5-17.5) g/dL Hct (41-53) % PT (10.1-12.7) SECONDS INR (0.9-1.3) APTT (26.4-36.2) SECONDS Sodium 138 (137-145) mmol/L Potassium 4.9 (3.4-5.1) mmol/L Chloride 112 H (98-107) mmol/L Carbon Dioxide 18 L (22-32) mmol/L BUN 91 H (9-20) mg/dL Creatinine 5.15 H (0.66-1.25) mg/dL Estimated GFR 12 L (>60) mL/min BUN/Creatinine Ratio 17.7 (6-22) Glucose 113 H (70-100) mg/dL Calcium 9.4 (8.4-10.2) mg/dL Phosphorus (2.5-4.5) mg/dL Magnesium (1.6-2.3) mg/dL Total Bilirubin (0.2-1.3) mg/dL AST (17-59) IU/L ALT (<50) IU/L Alkaline Phosphatase (38-126) U/L Ammonia 115 H (9-30) umol/L Total Protein (6.3-8.2) g/dL Albumin (3.5-5.0) g/dL Globulin (1.7-4.1) g/dL Albumin/Globulin Ratio (1.0-2.8) Lipase (23-300) U/L Urine Color Urine Appearance Urine pH (4.5-8.0) Ur Specific [place] (1.000-1.035) Urine Protein (Negative) Urine Glucose (UA) (Negative) g/dL Urine Ketones (NEGATIVE) Urine Occult Blood (Negative) Urine Nitrate (Negative) Urine Bilirubin (NEGATIVE) Urine Urobilinogen (0.2) E.U./dL Ur Leukocyte Esterase (NEGATIVE) Urine RBC (0-5/HPF) Urine WBC (0-5/HPF) Ur Squamous Epith Cells (0-5/HPF) Urine Bacteria (None) Ur Culture Indicated? U Opiates 300ng/mL cut (Negative) Ur Oxycodone Screen (Negative) Urine Methadone Screen (Negative) Ur Barbiturates Screen (Negative) U Tricyclic Antidepress (Negative) Ur Phencyclidine Scrn (Negative) Ur Amphetamines Screen (Negative) U Methamphetamines Scrn (Negative) Ur MDMA Scrn (Ecstasy) (Negative) U Benzodiazepines Scrn (Negative) Urine Cocaine Screen (Negative) U Marijuana (THC) Screen (Negative) SARS-CoV-2 (PCR) (Negative) Point of Care Testing Glucose POC 141 MDM Narrative Medical decision making narrative: This is a 56-year-old male who presents with complaint of renal failure and hyperkalemia. Patient's EKG does not show acute changes, chest x-ray is negative, CT shows slight increase in fluid collection change likely a seroma or lymphocele postoperatively from prior studies in 11/09/2014 today it is 2.8 x 2.4 cm and was 2.5 x 1.9 cm 3 years ago. Patient does have some compression fractures likely causing his plain that he is complaining of this evening. No acute changes appreciated in the kidneys some mild cortical thinning is noted. Patient states he is still making urine. Bradley catheter introduced in the department he has chronic anemia with a hemoglobin of 7.7 today was 8.4 in January. Patient's creatinine has been in the 4.2-4.6 range in January and today is 4.16 and on repeat 5.55 initial potassium was 6.3 is 5.4 on repeat before interventions in the department with a CO2 of 19 followed by 18, sodium 135. Glucose is 152 calcium is normal. Patient's alk-phos is 192 LFTs are otherwise normal. Patient is likely going to need urgent dialysis, consultation with [facility] was initiated as he is a prior transplant patient. Spoke with Medicine, [facility] does not do consult with their nephrology team is what I was told by the coordinator. They recommend holding patient's transplant medications at this time. They do not have any beds available, there is a critical bed shortage all facilities in the region were contacted and patient is on the [facility] regional hotline. He had some worsening mentation, patient is alert still conversant but confused he does have a hepatic history and ammonia levels obtained as in the 300s. Electrolytes are worsening he is 5.3 down from 6 3 and 5 4. CO2, creatinine still significantly elevated glucose is 118 Mag and phos are elevated. Patient was given lactulose for hepatic encephalopathy. Plan for repeat labs in the am @ 0700. Signed out to Dr. Crews while searching for bed for disposition. Patient is on regional hotline [facility] and plan to recontact [facility] today as they stated possible openings. 1257 02/28/22 [place]: Updated on status. Still no accepting facility. We have recalled the [facility] W a.m. CC. Repeat potassium level at 11:06 a.m. is 5.4. He is given a low-potassium a diabetic renal diet. Patient does confirm that he would like to be transferred to a facility where he can get dialysis. Repeat EKG at 8:54 a.m. shows no peaked T-waves. Sinus rhythm with a rate of 79. No stigmata of hyperkalemia 1400: I spoke to Dr. CALLE from hepatology. They do not believe he needs hepatology level care. I then spoke with from [facility] who declines admit to the [facility] much like facility. Then I spoke with Dr. FARIHA Clayton who suggested that perhaps dialysis might not be necessary. There are no outpatient dialysis clots. He says also he has no access to that makes it more difficult. He thought that the dialysis at the [facility] [facility] in might have been temporary as when he saw him last last summer he was not requiring dialysis even though his creatinine was a similar level at that time. He is basically lost to follow-up to Dr. Lundberg despite his invitation for the patient to return to his practice. Since were not able to find a facility did take him. I will start to administer Kayexalate with the idea that we might be able to get his potassium stabilized to the point of discharge after few days. We will continue to monitor him closely. We will get him in a regular hospital bed. 1800 ([place]) Patient received in sign out from Dr. Crews. I have reviewed the clinical course and performed an independent history and physical exam. Patient still with no available receiving facilities. He is altered, but will respond appropriately. He reluctantly took Lactulose, but has still had no BM. He has no signs of respiratory distress currently. Evening labs pending. 0600 - patient continues to be confused and slow to respond, but seems to perhaps be a bit improved. Repeat labs demonstrate continued stabilization of potassium, most recently 4.9. STill no BM, no respiratory distress. Creatinine still significatnly elevated at 5.1, up from baseline in mid 3s. There appears to be some confusion regarding recommendations regarding use of antirejection meds. Call placed back to to gain clarity Dr. Calle (Hepatology at ) recommends administration of Cellcept and Cyclosporine. These meds, as well as scheduled lactulose and losartan have been ordered. At last check we are atop the list for potential transfers at [facility] and on wait lists at various others 03/01/22 [place] 7am Patient signed out to me by Dr. Tran as soon evaluated patient was. This morning he is a bit confused complaining of pain in his abdomen. He apparently was not taking his lactulose in the emergency department his ammonia level sydnie to over 300. Now has hepatic encephalopathy. He apparently did take lactulose but has not yet had a bowel movement. Now complaining abdominal pain and cramping. Potassium seems to be improved. Continue to wait for dialysis bed. Although not sure of the emergent level dialysis needs., potassium is improved he is not hypoxic creatinine and blood work actually appear stable. GENERAL: Confused awake alert male HEENT: Head atraumatic,EOMI, pupils reactive, face symmetric, moist mucous membranes CARDIOVASCULAR: Regular rate and rhythm without murmurs, rubs or gallops. RESPIRATORY: Breath sounds equal bilaterally, no wheezes rales or rhonchi. ABDOMEN: Soft, no distension localization of pain but diffusely mildly tender EXTREMITIES: Normal range of motion, no clubbing or edema. Neurovascularly intact NEUROLOGICAL: Moving all extremities SKIN: Warm, dry, no laceration, no petechiae, no rashes or lesions. A/P 1. Hyperkalemia -now resolved 2. Chronic kidney disease stable: -Does need dialysis has no access. Attempts made at lining up outpatient dialysis but because of access not successful. 3. Liver transplant -now with hepatic encephalopathy, continue scheduled lactulose 4. Continue to work on placement, try other facilities as well Patient's ammonia level actually did improved to 100 but he still remains slightly confused I suspect ongoing hepatic encephalopathy. Dr. Parker, hospitalist at [facility] kindly accepts patient. Critical Care Time <Yanique Hoyt, - Last Filed: 02/28/22 06:52> Critical Care Time Attestation: The high probability of a clinically significant, sudden or life threatening deterioration of the [cardiac, renal, ] system(s) required my full and direct attention, intervention and personal management. The aggregate critical care time was [] minutes. This time is in addition to time spent performing reported procedures but includes the following: [x] Data Review and interpretation [x] Patient assessment and monitoring of vital signs [x] Documentation [x] Medication orders and management <Mitchell Crews MD - Last Filed: 03/03/22 12:24> Critical Care Time Total Critical Care Time: 200 Attestation: The high probability of a clinically significant, sudden or life threatening deterioration of the [cardiac, renal, ] system(s) required my full and direct attention, intervention and personal management. The aggregate critical care time was 200 minutes. This was over multiple days. Also by multiple providers. This time is in addition to time spent performing reported procedures but includes the following: [x] Data Review and interpretation [x] Patient assessment and monitoring of vital signs [x] Documentation [x] Medication orders and management <Mei Akhtar DO - Last Filed: 03/01/22 18:04> Critical Care Time Critical Care Time: Yes Total Critical Care Time: 45 Attestation: The high probability of a clinically significant, sudden or life threatening deterioration of the [cardiac, renal, ] system(s) required my full and direct attention, intervention and personal management. The aggregate critical care time was 45 minutes. This time is in addition to time spent performing reported procedures but includes the following: [x] Data Review and interpretation [x] Patient assessment and monitoring of vital signs [x] Documentation [x] Medication orders and management Discharge Plan Departure Patient Disposition: General Acute Hospital Clinical Impression: Acute on chronic kidney failure, Hyperkalemia, Seroma, Anemia, Encephalopathy, hepatic Prescriptions: No Action tamsulosin 0.4 mg Capsule 0.4 mg PO BEDTIME oxycodone 10 mg Tablet 10 mg PO Q3HR PRN (Reason: Pain, Severe (7-10)) Qty: 60 0RF lactulose 20 gram/30 mL Solution 30 gm PO TID Qty: 83424 0RF famotidine [Pepcid AC] 20 mg Tablet 20 mg PO BEDTIME Qty: 120 0RF furosemide [Lasix] 40 mg tablet 40 mg PO DAILY Qty: 5 0RF prednisone 5 mg Tablet 5 mg PO DAILY PRN (Reason: gout flare) fentanyl 25 mcg/hr Patch 72 Hour 1 patch TRANSDERMAL Q72H docusate sodium 250 mg Capsule 250 mg PO BID ondansetron 4 mg Tablet,Disintegrating 4 mg PO Q8H PRN (Reason: nausea / vomiting) cholecalciferol (vitamin D3) 25 mcg (1,000 unit) Capsule 25 mcg PO DAILY Complete Multivitamin Tablet 1 tab PO DAILY zinc sulfate 50 mg zinc (220 mg) Capsule 50 mg PO QAM thiamine mononitrate (vit B1) 100 mg Tablet 100 mg PO QAM losartan 25 mg tablet 25 mg PO QAM quetiapine [Seroquel] 25 mg Tablet 25 mg PO BEDTIME cyclosporine modified 25 mg Capsule 25 mg PO BID allopurinol 100 mg Tablet 100 mg PO DAILY mycophenolate mofetil [CellCept] 500 mg Tablet 500 mg PO BID lidocaine [Lidoderm] 5 % Adhesive Patch,Medicated 1 patch TOPICAL DAILY PRN (Reason: Back Pain) ursodiol 300 mg Capsule 300 mg PO BID gabapentin 300 mg Capsule 300 mg PO BID duloxetine [Cymbalta] 20 mg Capsule,Delayed Release(Dr/Ec) 20 mg PO DAILY pantoprazole [Protonix] 40 mg tablet,delayed release (DR/EC) 40 mg PO DAILY Qty: 30 0RF Xifaxan 550 mg Tablet 550 mg PO BID metoprolol succinate 25 mg tablet extended release 24 hr 25 mg PO BID Referrals: Kevin Porter MD [Primary Care Provider] -
[2022-02-27 20:50] LABS: COVID19 -Nasal RAPID Negative (Negative)
[2022-02-27] MEDS: CALCIUM GLUCONATE 4.65 MEQ in SODIUM CHLORIDE 0.9% 50 ML 180 MEQ IV (22:03)
[2022-02-27] MEDS: SODIUM POLYSTYRENE SULFON/SORB 15 GM/60 ML CUP 30 GM PO (22:04)
[2022-02-28] VITALS (112 sets, daily range): BP systolic 123–207; BP diastolic 58–144; PULSE 68–95; RESP 10–26; TEMP 36.9; O2SAT 94–100
[2022-02-28] MEDS: ONDANSETRON 4 MG/2 ML INJ (00:16)
--- NOTE | 2022-02-28 00:16 | PC.NURSE ---
Called into pt room d/t pt vomiting, pt reports he has been vomiting at night the past few nights. Repositioned pt and pt no longer vomiting, notified Dr. Hoyt and medications administered per OCT. Pt reports he wants to sleep, lights turned off for comfort.
--- NOTE | 2022-02-28 01:23 | PC.NURSE ---
Patient making statements like I need help with my body but when asked he says I don't know! and Why are you asking me these questions. Patient is having increased episodes of coughing with retching and secretions. Provider notified of change in condition.
[2022-02-28] MEDS: HYDRALAZINE 20 MG/ML VIAL 10 MG IV (01:25)
[2022-02-28] MEDS: HYDROMORPHONE 0.5 MG INJ IV (01:41)
[2022-02-28 01:43] LABS: Ammonia (NH3) 326 umol/L (9-30)
[2022-02-28 01:49] LABS: BUN Creatinine Ratio 18.2 (6-22); Blood Urea Nitrogen 98 mg/dL (9-20); Calcium 8.7 mg/dL (8.4-10.2); Carbon Dioxide 18 mmol/L (22-32); Chloride 111 mmol/L (98-107); Estimated Glomerular Filt Rate 12 mL/min (>60); Glucose 118 mg/dL (70-100); HEMOLYSIS < 15 (0-50); Lipase 43 U/L (23-300); Magnesium 2.5 mg/dL (1.6-2.3); Phosphorous 5.7 mg/dL (2.5-4.5); Potassium 5.3 mmol/L (3.4-5.1); Sodium 138 mmol/L (137-145)
[2022-02-28] MEDS: LACTULOSE 20 GM/30 ML SOLUTION PO (02:46)
[2022-02-28 07:50] LABS: Alanine Aminotransferase 12 IU/L (<50); Albumin 2.7 g/dL (3.5-5.0); Albumin Globulin Ratio 0.9 (1.0-2.8); Alkaline Phosphatase 200 U/L (38-126); Aspartate Aminotransferase 44 IU/L (17-59); BUN Creatinine Ratio 19.1 (6-22); Bilirubin Total 0.9 mg/dL (0.2-1.3); Blood Urea Nitrogen 99 mg/dL (9-20); Calcium 8.6 mg/dL (8.4-10.2); Carbon Dioxide 17 mmol/L (22-32); Chloride 112 mmol/L (98-107); Estimated Glomerular Filt Rate 12 mL/min (>60); Globulin 3.1 g/dL (1.7-4.1); Glucose 133 mg/dL (70-100); Sodium 136 mmol/L (137-145); Total Protein 5.8 g/dL (6.3-8.2)
[2022-02-28 07:51] LABS: HEMOLYSIS 79 (0-50)
[2022-02-28 07:53] LABS: Potassium 6.4 mmol/L (3.4-5.1)
[2022-02-28] MEDS: ALBUTEROL 2.5 MG/3 ML NEB (ADULT) INH (08:19)
[2022-02-28] MEDS: OXYCODONE IR 5 MG TABLET PO ×3 (08:27→19:58)
[2022-02-28 08:31] LABS: Appearance Urine UA CLEAR; Bilirubin Urine UA NEGATIVE (NEGATIVE); Color Urine UA YELLOW; Glucose Urine UA NEGATIVE (Negative); Ketones Urine UA NEGATIVE (NEGATIVE); Leukocyte Esterase Urine UA TRACE (NEGATIVE); Nitrite Urine UA NEGATIVE (Negative); Occult Blood Urine UA 3+ (Negative); Protein Urine UA 2+ (Negative); Specific Gravity Urine UA 1.015 (1.000-1.035); Urobilinogen Urine UA 0.2 E.U./dL (0.2)
[2022-02-28] MEDS: CALCIUM CHLORIDE 1,000 MG/10 ML SYRINGE 1000 MG IV (08:36)
[2022-02-28] MEDS: DEXTROSE 10 % IN WATER 1,000 ML 150 ML IV (08:37)
[2022-02-28] MEDS: INSULIN REGULAR 100 UNIT/ML 3 ML VIAL IV (08:40)
[2022-02-28] MEDS: CALCIUM GLUCONATE 9.3 MEQ in SODIUM CHLORIDE 0.9% 50 ML 140 MEQ IV (08:44)
[2022-02-28 08:50] LABS: Bacteria Urine Few (2-10); Culture Indicated Urine Specimen Cultured; RBC Urine 10-30/HPF (0-5/HPF); Squamous Epithelial Cell Urine 0-1 /HPF (0-5/HPF); WBC Urine 1-5/HPF (0-5/HPF)
--- NOTE | 2022-02-28 09:11 | DI.RAD.S_ITS ---
PROCEDURE: XR CHEST FOR PICC 1V INDICATIONS: PICC line placement COMPARISON: [facility], JEAN MARIE, XR CHEST 1V, 02/27/2022, 17:43. [facility], JEAN MARIE, XR CHEST 1V, 02/04/2022, 13:09. FINDINGS: Left-sided PICC terminates in the mid SVC. Suspected lower lung atelectasis. The lung bases and costophrenic angles are excluded from the field of view. Partially seen mediastinal contours are unremarkable. IMPRESSION: Left PICC terminates in the mid SVC. Dictated by: Micha Nuñez M.D. on 02/28/2022 at 9:26 Approved by: Micha Nuñez M.D. on 02/28/2022 at 9:27
[2022-02-28 09:12] LABS: HEMOLYSIS 29 (0-50)
[2022-02-28 09:21] LABS: Potassium 6.6 mmol/L (3.4-5.1)
--- NOTE | 2022-02-28 09:39 | PC.NURSE ---
PICC placed upper left arm. Length 55cm cut to 46cm. 4cm out at insertion site. Both lines flush well and draw back blood with no problems.
[2022-02-28 11:33] LABS: HEMOLYSIS < 15 (0-50)
[2022-02-28 11:34] LABS: Potassium 5.4 mmol/L (3.4-5.1)
[2022-02-28] MEDS: FUROSEMIDE 20 MG TABLET PO (11:41)
[2022-02-28] MEDS: LOSARTAN 25 MG TABLET PO (11:41)
[2022-02-28] MEDS: GABAPENTIN 300 MG CAPSULE PO (11:42)
[2022-02-28 11:49] LABS: Ur Creatinine Normal (Normal); Ur Specific Gravity Normal (Normal); Urine Tetrahydrocannabinol Positive (Negative); Urine pH Normal (Normal)
[2022-02-28 11:50] LABS: Hematocrit 22.9 % (41-53); Hemoglobin 7.5 g/dL (13.5-17.5)
[2022-02-28 11:50] LABS: UR Morphine/Opiate cutoff 300 Negative (Negative); Urine Amphetamines Negative (Negative); Urine Barbiturates Negative (Negative); Urine Benzodiazepines Negative (Negative); Urine Cocaine Negative (Negative); Urine MDMA Negative (Negative); Urine Methadone Negative (Negative); Urine Methamphetamines Negative (Negative); Urine Oxycodone Positive (Negative); Urine Phencyclidine Negative (Negative); Urine Tricyclic Antidepressant Negative (Negative)
[2022-02-28 12:03] LABS: Prothrombin Time 10.5 SECONDS (10.1-12.7)
[2022-02-28 12:05] LABS: PTT Partial Thromboplastin Tim 37 SECONDS (26.4-36.2)
[2022-02-28] MEDS: SODIUM POLYSTYRENE SULFON/SORB 15 GM/60 ML CUP 30 GM PO (14:22)
--- NOTE | 2022-02-28 16:41 | PC.NURSE ---
Pt drank half of kayexalate solution then unable to continue drinking. Pt noted to be increasingly lethargic and sleepy, encouraged PO intake, pt refused. notified. BG checked, 171.
[2022-02-28 16:51] LABS: BUN Creatinine Ratio 18.5 (6-22); Blood Urea Nitrogen 96 mg/dL (9-20); Calcium 9.3 mg/dL (8.4-10.2); Carbon Dioxide 22 mmol/L (22-32); Chloride 110 mmol/L (98-107); Estimated Glomerular Filt Rate 12 mL/min (>60); Glucose 118 mg/dL (70-100); HEMOLYSIS < 15 (0-50); Sodium 137 mmol/L (137-145)
[2022-02-28 16:52] LABS: Potassium 5.4 mmol/L (3.4-5.1)
--- NOTE | 2022-02-28 17:20 | PC.NURSE ---
Dr. Crews reminded that pt only drank 1/2 of Kayexalate and wondering how he would like the other half administered. stated to give him a moment to think about it. No further orders still at this time.
--- NOTE | 2022-02-28 18:27 | PC.NURSE ---
1800: Pt stood up with one person assist and walker for support. Pt unable to remain standing and did not take steps. Pt is tremulous and even though he follows commands he needs continual redirection. Pt speaks in full sentences and is confused. Pt placed back in bed with monitor on and warm blankets applied. Pt is close to RN station and has monitors applied.
[2022-02-28] MEDS: ONDANSETRON 4 MG/2 ML INJ IV (19:45)
[2022-02-28] MEDS: PANTOPRAZOLE 40 MG VIAL IV (20:15)
[2022-02-28 20:18] LABS: HEMOLYSIS < 15 (0-50)
[2022-03-01] VITALS (42 sets, daily range): BP systolic 168–192; BP diastolic 81–108; PULSE 69–88; RESP 9–29; TEMP 37.3; O2SAT 94–99
[2022-03-01] MEDS: LACTULOSE 20 GM/30 ML SOLUTION PO ×2 (00:07→07:18)
--- NOTE | 2022-03-01 00:08 | PC.NURSE ---
02/28/2022 0000 Pt moved to a hospital bed and moved to a room closer to the nurses station. Pt is able to role when staff changes sheets beneath him. Pt continues to be confused but is now able to inform RN that he is in the hospital. His speech is less mumbled and he is more alert than before. Pt falls asleep immediately after verbal stimulus stops from this RN. Pt continues to be tremulous but is less severe than during his 1800 assessment.
[2022-03-01] MEDS: OXYCODONE IR 5 MG TABLET PO ×3 (02:26→14:24)
[2022-03-01 02:42] LABS: BUN Creatinine Ratio 18.2 (6-22); Blood Urea Nitrogen 93 mg/dL (9-20); Calcium 9.1 mg/dL (8.4-10.2); Carbon Dioxide 20 mmol/L (22-32); Chloride 110 mmol/L (98-107); Estimated Glomerular Filt Rate 12 mL/min (>60); Glucose 104 mg/dL (70-100); HEMOLYSIS < 15 (0-50); Potassium 5.1 mmol/L (3.4-5.1); Sodium 139 mmol/L (137-145)
[2022-03-01 04:26] LABS: HEMOLYSIS < 15 (0-50); Potassium 4.9 mmol/L (3.4-5.1)
[2022-03-01] MEDS: MYCOPHENOLATE MOFETIL 500 MG TABLET PO (07:22)
[2022-03-01] MEDS: CYCLOSPORINE, MODIFIED 25 MG CAPSULE PO (07:22)
[2022-03-01] MEDS: LOSARTAN 25 MG TABLET PO (08:06)
[2022-03-01 09:40] LABS: Ammonia (NH3) 115 umol/L (9-30)
[2022-03-01 10:18] LABS: BUN Creatinine Ratio 17.7 (6-22); Blood Urea Nitrogen 91 mg/dL (9-20); Calcium 9.4 mg/dL (8.4-10.2); Carbon Dioxide 18 mmol/L (22-32); Chloride 112 mmol/L (98-107); Estimated Glomerular Filt Rate 12 mL/min (>60); Glucose 113 mg/dL (70-100); HEMOLYSIS < 15 (0-50); Potassium 4.9 mmol/L (3.4-5.1); Sodium 138 mmol/L (137-145)
[2022-03-01] MEDS: DOCUSATE 100 MG CAPSULE 200 MG PO (10:27)
[2022-03-01] MEDS: RIFAXIMIN 550 MG TABLET PO (10:27)
[2022-03-01] MEDS: allopurinoL 100 MG TABLET PO (10:27)
[2022-03-01] MEDS: DULOXETINE 20 MG CAPSULE PO (10:27)
[2022-03-01] MEDS: THIAMINE 100 MG TABLET PO (10:27)
[2022-03-01] MEDS: GABAPENTIN 300 MG CAPSULE PO (10:27)
[2022-03-01] MEDS: ursodioL 300 MG CAPSULE PO (10:28)
[2022-03-01] MEDS: METOPROLOL ER 25 MG TABLET PO (10:28)
[2022-03-01] MEDS: PANTOPRAZOLE DR 40 MG TABLET PO (10:28)
[2022-03-01] MEDS: FUROSEMIDE 20 MG TABLET PO (12:19)
[2022-03-01] MEDS: CHOLECALCIFEROL (VITAMIN D3) 1,000 UNIT TABLET 1000 UNIT PO (12:19)
[2022-03-01] MEDS: ONDANSETRON 4 MG/2 ML INJ IV (14:22)
== END 2022-03-01 14:39 | disposition short-term general hospital (02) ==
PROVIDERS: Emergency Medicine; Family Medicine Addiction Medicine; Emergency Provider Emergency Medicine; Family Provider Internal Medicine; PCP Internal Medicine
DX: N17.9 Acute kidney failure, unspecified (principal); E87.5 Hyperkalemia; K72.90 Hepatic failure, unspecified without coma; R42 Dizziness and giddiness; Z20.822 Contact with and (suspected) exposure to COVID-19; Z94.4 Liver transplant status; Z86.16 Personal history of COVID-19; N18.4 Chronic kidney disease, stage 4 (severe); K76.7 Hepatorenal syndrome
CPT/HCPCS: 36415; 36569; 71045; 74176; 80048; 80053; 80305; 81001; 82140; 82962; 83690; 83735; 84100; 84132; 85014; 85018; 85025; 85610; 85730; 87086; 87635; 93005; 93010; 94640; 96361; 96374; 96375; 96376; 99285; 99291; 99292; C9803; C9113; J0360; J0610; J1170; J1642; J1940; J2405; J7515; J7613

== ENCOUNTER 2022-03-05 13:20 | Emergency (ER) | payer OTHER, MEDICAID, SELFPAY ==
[2022-02-03 06:25] VITALS: RESP 22
[2022-02-04 19:16] VITALS: PULSE 109; RESP 25; O2SAT 100
[2022-03-05 13:25] VITALS: BP 177/95; PULSE 67; RESP 18; TEMP 36.6; O2SAT 99; BMI 32.8
[2022-03-05 13:45] LABS: Add Manual Diff / Slide Review NO; Basophils Absolute Auto 0 /uL (0-100); Basophils Percent Auto 0.6 % (0-2); Eosinophils Absolute Auto 100 /uL (0-450); Eosinophils Percent Auto 1.4 % (2-4); Hematocrit 22.6 % (41-53); Hemoglobin 7.4 g/dL (13.5-17.5); Lymphocytes Absolute Auto 2700 /uL (1100-4500); Lymphocytes Percent Auto 42.2 % (25-40); Mean Corpuscular HGB Conc 32.9 % (30-36); Mean Corpuscular Hemoglobin 31.4 PG (26-34); Mean Corpuscular Volume 95.5 fL (80-100); Monocytes Absolute Auto 500 /uL (0-900); Monocytes Percent Auto 8.1 % (3-14); Neutrophils Absolute Auto 3100 /uL (1500-7000); Neutrophils Percent Auto 47.7 % (50-75); Platelet Count 159 X10^3/uL (150-400); Red Blood Cell Count 2.37 X10^6/uL (4.5-5.9); Red Cell Distribution Width 19.3 % (11.6-14.8); White Blood Cell Count 6.4 X10^3/uL (4.5-11.0)
[2022-03-05 13:54] LABS: Alanine Aminotransferase 13 IU/L (<50); Albumin 2.5 g/dL (3.5-5.0); Albumin Globulin Ratio 0.8 (1.0-2.8); Alkaline Phosphatase 193 U/L (38-126); Aspartate Aminotransferase 30 IU/L (17-59); BUN Creatinine Ratio 16.6 (6-22); Bilirubin Total 0.9 mg/dL (0.2-1.3); Blood Urea Nitrogen 85 mg/dL (9-20); Calcium 8.2 mg/dL (8.4-10.2); Carbon Dioxide 20 mmol/L (22-32); Chloride 104 mmol/L (98-107); Creatine Kinase 79 U/L (55-170); Estimated Glomerular Filt Rate 12 mL/min (>60); Glucose 99 mg/dL (70-100); HEMOLYSIS < 15 (0-50); Potassium 4.9 mmol/L (3.4-5.1); Sodium 132 mmol/L (137-145); Total Protein 5.5 g/dL (6.3-8.2)
[2022-03-05 14:05] LABS: Troponin I 0.019 ng/mL (0.01-0.034)
[2022-03-05 14:26] LABS: Bacteria Urine None Seen; Culture Indicated Urine Cult Not Indicated; RBC Urine 30-100/HPF (0-5/HPF); Squamous Epithelial Cell Urine 0-1 /HPF (0-5/HPF); WBC Urine 0-1/HPF (0-5/HPF)
--- NOTE | 2022-03-05 15:28 | ED.RECABL ---
HPI - Recheck/Abnormal Lab/Rx General Chief Complaint: Recheck/Abnormal Lab/Rx Stated Complaint: Renal failure Time Seen by Provider: 03/05/22 13:21 Source: EMS Mode of arrival: EMS History of Present Illness HPI narrative: Patient is a 56-year-old male who has chronic kidney disease, liver transplant,HCV cirrhosis, recurrent alcohol use, hepatic encephalopathy, he was sent to [facility] 4 days ago for the possibility of dialysis which she has not yet started. He apparently was released he did not get dialysis. 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 He actually is awake and alert and has absolutely no complaints today. He states [facility] gave him some medicine and he urinated all night long and was released the next day. Related Data Home Medications Medication Instructions Recorded Confirmed allopurinol 100 mg tablet 100 mg PO DAILY 01/14/20 03/01/22 cyclosporine modified 25 mg capsule 25 mg PO BID 01/14/20 03/01/22 duloxetine 20 mg capsule,delayed 20 mg PO DAILY 01/14/20 03/01/22 release (Cymbalta) gabapentin 300 mg capsule 300 mg PO BID 01/14/20 03/01/22 lidocaine 5 % topical patch 1 patch topical DAILY PRN Back Pain 01/14/20 03/01/22 (Lidoderm) mycophenolate mofetil 500 mg 500 mg PO BID 01/14/20 03/01/22 tablet (CellCept) quetiapine 25 mg tablet (Seroquel) 25 mg PO BEDTIME 01/14/20 03/01/22 ursodiol 300 mg capsule 300 mg PO BID 01/14/20 03/01/22 rifaximin 550 mg tablet (Xifaxan) 550 mg PO BID 09/20/20 03/01/22 metoprolol succinate 25 mg 25 mg PO BID 01/25/21 03/01/22 tablet,extended release 24 hr tamsulosin 0.4 mg capsule 0.4 mg PO BEDTIME 04/27/21 03/01/22 cholecalciferol (vitamin D3) 25 25 mcg PO DAILY 03/01/22 03/01/22 mcg (1,000 unit) capsule docusate sodium 250 mg capsule 250 mg PO BID 03/01/22 03/01/22 fentanyl 25 mcg/hr transdermal 1 patch transdermal Q72H 03/01/22 03/01/22 patch losartan 25 mg tablet 25 mg PO QAM 03/01/22 03/01/22 multivitamin,[id number] 1 tab PO DAILY 03/01/22 03/01/22 ondansetron 4 mg disintegrating 4 mg PO Q8H PRN nausea / vomiting 03/01/22 03/01/22 tablet prednisone 5 mg tablet 5 mg PO DAILY PRN gout flare 03/01/22 03/01/22 thiamine mononitrate (vit B1) 100 100 mg PO QAM 03/01/22 03/01/22 mg tablet zinc sulfate 50 mg zinc (220 mg) 50 mg PO QAM 03/01/22 03/01/22 capsule Previous Rx's Medication Instructions Recorded pantoprazole 40 mg tablet,delayed 40 mg PO DAILY #30 tabs 05/14/20 release (Protonix) oxycodone 10 mg tablet 10 mg PO Q3HR PRN Pain, Severe 05/11/21 (7-10) #60 tabs lactulose 20 gram/30 mL oral 30 gm PO TID #11,000 mL 07/05/21 solution famotidine 20 mg tablet (Pepcid AC) 20 mg PO BEDTIME #120 tabs 07/06/21 furosemide 40 mg tablet (Lasix) 40 mg PO DAILY #5 tabs 01/17/22 Allergies Allergy/AdvReac Type Severity Reaction Status Date / Time adhesive tape Allergy Severe Paper Verified 03/05/22 13:27 tape causes big sores doxylamine [From NyQuil] Allergy Severe Seizure Verified 03/05/22 13:27 venom-honey bee Allergy Severe Wheezing, Verified 03/05/22 13:27 [BEE VENOM (HONEY BEE)] throat closing pseudoephedrine Allergy Pt does Verified 03/05/22 13:27 not recall codeine AdvReac Severe Vomiting Verified 03/05/22 13:27 dextromethorphan AdvReac Severe Seizure Verified 03/05/22 13:27 NSAIDS (Non-Steroidal AdvReac Severe Abdominal Verified 03/05/22 13:27 Anti-Inflamma Pain copper AdvReac Intermediate Soaks Verified 03/05/22 13:27 into my body and hurts my jaw and joints morphine AdvReac Intermediate Vomiting Verified 03/05/22 13:27 oxycodone AdvReac Intermediate Vomiting Verified 03/05/22 13:27 tizanidine AdvReac Unknown Pt does Verified 03/05/22 13:27 not recall Review of Systems Review of Systems Narrative: GENERAL: Denies chills, fatigue, malaise, fever, sweats, travel HEENT: Denies sinus pain, ear pain, sore throat, difficulty swallowing, neck pain RESPIRATORY: Denies dyspnea, cough, wheezing, hemoptysis, sputum. CARDIOVASCULAR: Denies chest pain, palpitations, orthopnea, edema GASTROINTESTINAL: Denies nausea, vomiting, abdominal pain, diarrhea, constipation, melena. : Denies dysuria, frequency, incontinence, hematuria, urinary retention, flank pain. MUSCULOSKELETAL: Denies weakness, joint pain, or bony pain SKIN: No rash, no erythema, no pruritus NEUROLOGIC: see HPI PSYCHIATRIC: No concerning psychosocial issues. 12 point review of systems is negative except for those stated above and HPI Patient History Medical History Cirrhosis of liver CKD (chronic kidney disease) Compression fracture Depression Former smoker GERD (gastroesophageal reflux disease) Gout Hepatitis C (~2011) History of vertebral compression fracture Hypertension Immunosuppression Liver cancer Medical marijuana use GUILLE (obstructive sleep apnea) Osteoporosis PAC (premature atrial contraction) Pain management contract agreement Paroxysmal atrial fibrillation PVC (premature ventricular contraction) Thrombocytopenia Surgical History H/O right wrist surgery History of biliary duct stent placement (01/2013) History of open reduction and internal fixation (ORIF) procedure (09/22/20) History of removal of retained hardware (01/25/21) History of right hip replacement Hx of appendectomy (~1979) Hx of cholecystectomy (~2003) Hx of elbow surgery (~2003) Hx of elbow surgery (~2007) Hx of fusion of cervical spine Hx of hernia repair Hx of shoulder surgery (~2012) Hx of tonsillectomy (~1969) Liver transplant recipient (11/24/11) Presence of left artificial elbow joint Family History Mother Renal failure Father Diabetes mellitus Congestive heart failure Social History household members: none Smoking Status: Former smoker alcohol intake: current Smoking Status: Former smoker tobacco type: cigarettes alcohol intake frequency: a few times a month Alcohol type: hard liquor Substance Use Type: marijuana Exam Initial Vital Signs Initial Vital Signs: Vital Signs Temperature 98 F 03/05/22 13:25 Pulse Rate 67 03/05/22 13:25 Respiratory Rate 18 03/05/22 13:25 Blood Pressure 177/95 H 03/05/22 13:25 Pulse Oximetry 99 03/05/22 13:25 Oxygen Delivery Method 03/05/22 13:25 GENERAL: Alert chronically 0 48-year-old male no acute distress and in no acute distress. HEENT: Head atraumatic,EOMI, pupils reactive, face symmetric, moist mucous membranes CARDIOVASCULAR: Regular rate and rhythm without murmurs, rubs or gallops. RESPIRATORY: Breath sounds equal bilaterally, no wheezes rales or rhonchi. ABDOMEN: Soft, nontender. Normoactive bowel sounds all 4 quadrants. No guarding or rebound. EXTREMITIES: Normal range of motion, no clubbing or edema. Neurovascularly intact NEUROLOGICAL: Alert and oriented x4. [employer] strength equal bilaterally moving all extremities SKIN: Warm, dry, no laceration, no petechiae, no rashes or lesions. Course Orders Ordered: ED Orders 03/05/22 13:33 CBC Auto Diff [Complete Blood Count AUTO DIFF] Stat CMP [Comprehensive Metabolic Panel] Stat Troponin & CK Cardiac Panel Stat Urine Microscopic Stat 03/05/22 13:44 EKG-12 Lead Stat Vital Signs Vital signs: Vital Signs - 8 hr 03/05/22 13:25 03/05/22 16:44 Temperature 98 F Pulse Rate 67 68 Respiratory Rate 18 16 Blood Pressure 177/95 H 167/65 H Pulse Oximetry 99 99 Oxygen Delivery Method Room Air Room Air MDM - Recheck/Abnormal Lab/Rx Lab Data Result diagrams: 03/05/22 13:33 03/05/22 13:33 Labs: Lab Results 03/05/22 03/05/22 03/05/22 Range/Units 13:33 13:33 13:33 WBC 6.4 (4.5-11.0) X10^3/uL RBC 2.37 L (4.5-5.9) X10^6/uL Hgb 7.4 L (13.5-17.5) g/dL Hct 22.6 L (41-53) % MCV 95.5 D (80-100) fL MCH 31.4 (26-34) PG MCHC 32.9 (30-36) % RDW 19.3 H (11.6-14.8) % Plt Count 159 (150-400) X10^3/uL Neut % (Auto) 47.7 L (50-75) % Lymph % (Auto) 42.2 H (25-40) % [place] % (Auto) 8.1 (3-14) % Eos % (Auto) 1.4 L (2-4) % Baso % (Auto) 0.6 (0-2) % Neut # (Auto) 3100 (2418-9671) /uL Lymph # (Auto) 2700 (4671-0765) /uL [place] # (Auto) 500 (0-900) /uL Eos # (Auto) 100 (0-450) /uL Baso # (Auto) 0 (0-100) /uL Sodium 132 L (137-145) mmol/L Potassium 4.9 (3.4-5.1) mmol/L Chloride 104 (98-107) mmol/L Carbon Dioxide 20 L (22-32) mmol/L BUN 85 H (9-20) mg/dL Creatinine 5.12 H (0.66-1.25) mg/dL Estimated GFR 12 L (>60) mL/min BUN/Creatinine Ratio 16.6 (6-22) Glucose 99 (70-100) mg/dL Calcium 8.2 L (8.4-10.2) mg/dL Total Bilirubin 0.9 (0.2-1.3) mg/dL AST 30 (17-59) IU/L ALT 13 (<50) IU/L Alkaline Phosphatase 193 H (38-126) U/L Total Creatine Kinase 79 (55-170) U/L CK-MB (CK-2) TNP CK-MB (CK-2) Rel Index TNP Troponin I 0.019 (0.01-0.034) ng/mL Total Protein 5.5 L (6.3-8.2) g/dL Albumin 2.5 L (3.5-5.0) g/dL Globulin 3.0 (1.7-4.1) g/dL Albumin/Globulin Ratio 0.8 L (1.0-2.8) Urine RBC 30-100/hpf H (0-5/HPF) Urine WBC 0-1/hpf (0-5/HPF) Ur Squamous Epith Cells 0-1 /hpf (0-5/HPF) Urine Bacteria None seen (None) Ur Culture Indicated? Cult not indicated Urine Dip Bedside Urine Glucose Negative Bedside Urine Bilirubin - Negative Bedside Urine Ketone - Negative Urine Specific [place] 1.015 Bedside Urine Occult Blood +++ Bedside Urine pH 6.0 Bedside Urine Protein +++ 300 Bedside Urine Urobilinogen - Negative Bedside Urine Nitrite - Negative Bedside Urine Leukocytes - Negative Esterase ECG Data Interpretation: Low voltage normal sinus rhythm rate 61 AR interval 162 QRS is [address] changes similar to previous EKG MDM Narrative Medical decision making narrative: Patient has been to the ER multiple times she was recently sent to [facility] for dialysis which she did not get. He is awake alert oriented moving all extremities. No sign of hepatic encephalopathy no need to check an ammonia. No sign of trauma no need for any imaging. Still awaiting for records from [facility]. At this time patient blood work looks to be at baseline. His mental status is at baseline. Discharge Plan Departure Patient Disposition: Home Clinical Impression: CKD (chronic kidney disease) Instructions: Chronic Kidney Disease Activity Restrictions/Additional Instructions: *You have been diagnosed with chronic kidney disease *What to do: At this time blood work is stable. Please follow-up with her doctors in take her medication *Continue to take medications as directed *Follow up with your primary care provider in 2-3 days or call [phone] *Return to ER if you should have increasing confusion, weakness chest pain shortness of breath or any new, worsening or concerning symptoms Prescriptions: No Action tamsulosin 0.4 mg Capsule 0.4 mg PO BEDTIME oxycodone 10 mg Tablet 10 mg PO Q3HR PRN (Reason: Pain, Severe (7-10)) Qty: 60 0RF lactulose 20 gram/30 mL Solution 30 gm PO TID Qty: 32223 0RF famotidine [Pepcid AC] 20 mg Tablet 20 mg PO BEDTIME Qty: 120 0RF furosemide [Lasix] 40 mg tablet 40 mg PO DAILY Qty: 5 0RF prednisone 5 mg Tablet 5 mg PO DAILY PRN (Reason: gout flare) fentanyl 25 mcg/hr Patch 72 Hour 1 patch TRANSDERMAL Q72H docusate sodium 250 mg Capsule 250 mg PO BID ondansetron 4 mg Tablet,Disintegrating 4 mg PO Q8H PRN (Reason: nausea / vomiting) cholecalciferol (vitamin D3) 25 mcg (1,000 unit) Capsule 25 mcg PO DAILY Complete Multivitamin Tablet 1 tab PO DAILY zinc sulfate 50 mg zinc (220 mg) Capsule 50 mg PO QAM thiamine mononitrate (vit B1) 100 mg Tablet 100 mg PO QAM losartan 25 mg tablet 25 mg PO QAM quetiapine [Seroquel] 25 mg Tablet 25 mg PO BEDTIME cyclosporine modified 25 mg Capsule 25 mg PO BID allopurinol 100 mg Tablet 100 mg PO DAILY mycophenolate mofetil [CellCept] 500 mg Tablet 500 mg PO BID lidocaine [Lidoderm] 5 % Adhesive Patch,Medicated 1 patch TOPICAL DAILY PRN (Reason: Back Pain) ursodiol 300 mg Capsule 300 mg PO BID gabapentin 300 mg Capsule 300 mg PO BID duloxetine [Cymbalta] 20 mg Capsule,Delayed Release(Dr/Ec) 20 mg PO DAILY pantoprazole [Protonix] 40 mg tablet,delayed release (DR/EC) 40 mg PO DAILY Qty: 30 0RF Xifaxan 550 mg Tablet 550 mg PO BID metoprolol succinate 25 mg tablet extended release 24 hr 25 mg PO BID Referrals: Kevin Porter MD [Primary Care Provider] - Visit Report Forms: Patient Portal/API
[2022-03-05 16:44] VITALS: BP 167/65; PULSE 68; RESP 16; O2SAT 99
== END 2022-03-05 16:44 | disposition home or self-care (01) ==
PROVIDERS: Emergency Provider Emergency Medicine; Family Provider Internal Medicine; PCP Internal Medicine
DX: N18.9 Chronic kidney disease, unspecified (principal)
CPT/HCPCS: 36415; 80053; 81003; 81015; 82550; 84484; 85025; 93005; 99283; 99284

== ENCOUNTER 2022-03-19 23:55 | Emergency (ER) | payer OTHER, MEDICAID, SELFPAY ==
[2022-02-03 06:25] VITALS: RESP 22
[2022-02-04 19:16] VITALS: PULSE 109; RESP 25; O2SAT 100
[2022-03-20] VITALS (11 sets, daily range): BP systolic 180–193; BP diastolic 93–124; PULSE 65–89; RESP 9–19; TEMP 36.9; O2SAT 96–99; BMI 30.7
--- NOTE | 2022-03-20 00:02 | ED_ITS ---
HPI - Altered Mental Status General Chief Complaint: Back Pain/Injury Stated Complaint: Neck pain Time Seen by Provider: 03/20/22 00:02 History of Present Illness HPI narrative: Patient is a 56-year-old male history of chronic kidney disease, liver transplant, HCV cirrhosis, recurrent alcohol use hepatic encephalopathy presenting today with back pain. He apparently was found in the lobby confused without any pants on and brought to the emergency department. He is complaining of back pain. He says he fell he is having trouble telling how exactly he fell. I do not see any evidence of trauma. He is having some shaking. He actually does seem a bit more confused today than when I have seen him previously. However she is mostly complaining of back pain. Related Data Home Medications Medication Instructions Recorded Confirmed allopurinol 100 mg tablet 100 mg PO DAILY 01/14/20 03/01/22 cyclosporine modified 25 mg capsule 25 mg PO BID 01/14/20 03/01/22 duloxetine 20 mg capsule,delayed 20 mg PO DAILY 01/14/20 03/01/22 release (Cymbalta) gabapentin 300 mg capsule 300 mg PO BID 01/14/20 03/01/22 lidocaine 5 % topical patch 1 patch topical DAILY PRN Back Pain 01/14/20 03/01/22 (Lidoderm) mycophenolate mofetil 500 mg 500 mg PO BID 01/14/20 03/01/22 tablet (CellCept) quetiapine 25 mg tablet (Seroquel) 25 mg PO BEDTIME 01/14/20 03/01/22 ursodiol 300 mg capsule 300 mg PO BID 01/14/20 03/01/22 rifaximin 550 mg tablet (Xifaxan) 550 mg PO BID 09/20/20 03/01/22 metoprolol succinate 25 mg 25 mg PO BID 01/25/21 03/01/22 tablet,extended release 24 hr tamsulosin 0.4 mg capsule 0.4 mg PO BEDTIME 04/27/21 03/01/22 cholecalciferol (vitamin D3) 25 25 mcg PO DAILY 03/01/22 03/01/22 mcg (1,000 unit) capsule docusate sodium 250 mg capsule 250 mg PO BID 03/01/22 03/01/22 fentanyl 25 mcg/hr transdermal 1 patch transdermal Q72H 03/01/22 03/01/22 patch losartan 25 mg tablet 25 mg PO QAM 03/01/22 03/01/22 multivitamin,[id number]-[id number] 1 tab PO DAILY 03/01/22 03/01/22 ondansetron 4 mg disintegrating 4 mg PO Q8H PRN nausea / vomiting 03/01/22 03/01/22 tablet prednisone 5 mg tablet 5 mg PO DAILY PRN gout flare 03/01/22 03/01/22 thiamine mononitrate (vit B1) 100 100 mg PO QAM 03/01/22 03/01/22 mg tablet zinc sulfate 50 mg zinc (220 mg) 50 mg PO QAM 03/01/22 03/01/22 capsule Previous Rx's Medication Instructions Recorded pantoprazole 40 mg tablet,delayed 40 mg PO DAILY #30 tabs 05/14/20 release (Protonix) oxycodone 10 mg tablet 10 mg PO Q3HR PRN Pain, Severe 05/11/21 (7-10) #60 tabs lactulose 20 gram/30 mL oral 30 gm PO TID #11,000 mL 07/05/21 solution famotidine 20 mg tablet (Pepcid AC) 20 mg PO BEDTIME #120 tabs 07/06/21 furosemide 40 mg tablet (Lasix) 40 mg PO DAILY #5 tabs 01/17/22 Allergies Allergy/AdvReac Type Severity Reaction Status Date / Time adhesive tape Allergy Severe Paper Verified 03/05/22 13:27 tape causes big sores doxylamine [From NyQuil] Allergy Severe Seizure Verified 03/05/22 13:27 venom-honey bee Allergy Severe Wheezing, Verified 03/05/22 13:27 [BEE VENOM (HONEY BEE)] throat closing pseudoephedrine Allergy Pt does Verified 03/05/22 13:27 not recall codeine AdvReac Severe Vomiting Verified 03/05/22 13:27 dextromethorphan AdvReac Severe Seizure Verified 03/05/22 13:27 NSAIDS (Non-Steroidal AdvReac Severe Abdominal Verified 03/05/22 13:27 Anti-Inflamma Pain copper AdvReac Intermediate Soaks Verified 03/05/22 13:27 into my body and hurts my jaw and joints morphine AdvReac Intermediate Vomiting Verified 03/05/22 13:27 oxycodone AdvReac Intermediate Vomiting Verified 03/05/22 13:27 tizanidine AdvReac Unknown Pt does Verified 03/05/22 13:27 not recall Review of Systems Review of Systems Narrative: GENERAL: Denies chills, fatigue, malaise, fever, sweats, travel HEENT: Denies sinus pain, ear pain, sore throat, difficulty swallowing, neck pain RESPIRATORY: Denies dyspnea, cough, wheezing, hemoptysis, sputum. CARDIOVASCULAR: Denies chest pain, palpitations, orthopnea, edema GASTROINTESTINAL: Denies nausea, vomiting, abdominal pain, diarrhea, constipation, melena. : Denies dysuria, frequency, incontinence, hematuria, urinary retention, flank pain. MUSCULOSKELETAL: See HPI SKIN: No rash, no erythema, no pruritus NEUROLOGIC: Denies weakness, dizziness, headache, numbness, change in speech, confusion PSYCHIATRIC: No concerning psychosocial issues. 12 point review of systems is negative except for those stated above and HPI Patient History Medical History Cirrhosis of liver CKD (chronic kidney disease) Compression fracture Depression Former smoker GERD (gastroesophageal reflux disease) Gout Hepatitis C (~2011) History of vertebral compression fracture Hypertension Immunosuppression Liver cancer Medical marijuana use GUILLE (obstructive sleep apnea) Osteoporosis PAC (premature atrial contraction) Pain management contract agreement Paroxysmal atrial fibrillation PVC (premature ventricular contraction) Thrombocytopenia Surgical History H/O right wrist surgery History of biliary duct stent placement (01/2013) History of open reduction and internal fixation (ORIF) procedure (09/22/20) History of removal of retained hardware (01/25/21) History of right hip replacement Hx of appendectomy (~1979) Hx of cholecystectomy (~2003) Hx of elbow surgery (~2003) Hx of elbow surgery (~2007) Hx of fusion of cervical spine Hx of hernia repair Hx of shoulder surgery (~2012) Hx of tonsillectomy (~1969) Liver transplant recipient (11/24/11) Presence of left artificial elbow joint Family History Mother Renal failure Father Diabetes mellitus Congestive heart failure Social History household members: none Smoking Status: Former smoker alcohol intake: current Smoking Status: Former smoker tobacco type: cigarettes alcohol intake frequency: a few times a month Alcohol type: hard liquor Substance Use Type: marijuana Exam Initial Vital Signs Initial Vital Signs: Vital Signs Temperature 98.5 F 03/20/22 00:19 Pulse Rate 71 03/20/22 00:19 Respiratory Rate 18 03/20/22 00:19 Blood Pressure 193/93 H 03/20/22 00:19 Pulse Oximetry 99 03/20/22 00:19 Oxygen Delivery Method 03/20/22 00:19 GENERAL: Chronically ill 56-year-old male mildly confused HEENT: Head atraumatic,EOMI, pupils reactive, face symmetric, moist mucous membranes CARDIOVASCULAR: Regular rate and rhythm without murmurs, rubs or gallops. RESPIRATORY: Breath sounds equal bilaterally, no wheezes rales or rhonchi. ABDOMEN: Soft, nontender. Normoactive bowel sounds all 4 quadrants. No guarding or rebound. BACK: Thoracic vertebral tenderness no step-offs no sign of trauma EXTREMITIES: Normal range of motion, no clubbing or edema. Neurovascularly intact NEUROLOGICAL: Alert and oriented x3 resting tremor SKIN: Warm, dry, no laceration, no petechiae, no rashes or lesions. Course Orders Ordered: Discontinued Medications Diazepam (Diazepam 10 Mg/2 Ml Syringe) 2 mg IV NOW ONE Stop: 03/20/22 02:31 Last Admin: 03/20/22 03:03 Dose: 2 mg Documented By: MARTIN Hydromorphone HCl (Hydromorphone 0.5 Mg Inj) 0.5 mg IV NOW ONE Stop: 03/20/22 01:02 Last Admin: 03/20/22 01:11 Dose: 0.5 mg Documented By: MARTIN Hydromorphone HCl (Hydromorphone 1 Mg Inj) 1 mg IV NOW ONE Stop: 03/20/22 02:31 Last Admin: 03/20/22 03:19 Dose: 1 mg Documented By: MARTIN Sodium Chloride (Normal Saline 0.9%) 1,000 mls @ 150 mls/hr IV CONT JUNIOR Last Infusion: 03/20/22 05:20 Dose: 0 mls/hr Documented By: Admin: 03/20/22 01:11 Dose: 150 mls/hr Documented By: MARTIN Vital Signs Vital signs: Vital Signs - 8 hr 03/20/22 00:19 03/20/22 01:19 03/20/22 01:30 Temperature 98.5 F Pulse Rate 71 67 Respiratory Rate 18 19 Blood Pressure 193/93 H 180/96 H Pulse Oximetry 99 97 Oxygen Delivery Method Room Air 03/20/22 01:30 03/20/22 02:00 03/20/22 02:30 Temperature Pulse Rate 65 65 75 Respiratory Rate 17 17 14 Blood Pressure Pulse Oximetry 97 96 97 Oxygen Delivery Method 03/20/22 03:01 03/20/22 03:26 03/20/22 03:26 Temperature Pulse Rate 73 79 Respiratory Rate 15 Blood Pressure 187/124 H Pulse Oximetry 98 97 Oxygen Delivery Method 03/20/22 03:37 Temperature Pulse Rate 89 Respiratory Rate 13 Blood Pressure Pulse Oximetry 98 Oxygen Delivery Method MDM - Altered Mental Status Lab Data Result diagrams: 03/20/22 00:04 03/20/22 00:04 Labs: Lab Results 03/20/22 03/20/22 03/20/22 Range/Units 00:04 00:04 00:04 WBC 8.0 (4.5-11.0) X10^3/uL RBC 2.38 L (4.5-5.9) X10^6/uL Hgb 7.5 L (13.5-17.5) g/dL Hct 23.4 L (41-53) % MCV 98.1 (80-100) fL MCH 31.3 (26-34) PG MCHC 31.9 (30-36) % RDW 20.2 H (11.6-14.8) % Plt Count 145 L (150-400) X10^3/uL Neut % (Auto) 42.9 L (50-75) % Lymph % (Auto) 47.8 H (25-40) % [place] % (Auto) 7.6 (3-14) % Eos % (Auto) 0.5 L (2-4) % Baso % (Auto) 1.2 (0-2) % Neut # (Auto) 3400 (9661-7848) /uL Lymph # (Auto) 3800 (5667-5627) /uL [place] # (Auto) 600 (0-900) /uL Eos # (Auto) 0 (0-450) /uL Baso # (Auto) 100 (0-100) /uL RBC Morphology See below Anisocytosis 2+ H Target Cells 1+ H Acanthocytes (Spur) 1+ PT (10.1-12.7) SECONDS INR (0.9-1.3) APTT (26.4-36.2) SECONDS Sodium (137-145) mmol/L Potassium (3.4-5.1) mmol/L Chloride (98-107) mmol/L Carbon Dioxide (22-32) mmol/L BUN (9-20) mg/dL Creatinine (0.66-1.25) mg/dL Estimated GFR (>60) mL/min BUN/Creatinine Ratio (6-22) Glucose (70-100) mg/dL Lactate (0.7-2.1) mmol/L Calcium (8.4-10.2) mg/dL Total Bilirubin (0.2-1.3) mg/dL AST (17-59) IU/L ALT (<50) IU/L Alkaline Phosphatase (38-126) U/L Ammonia 86 H (9-30) umol/L Total Creatine Kinase (55-170) U/L CK-MB (CK-2) (<2.37) ng/mL CK-MB (CK-2) Rel Index (1.5-5.0) % Troponin I (0.01-0.034) ng/mL Total Protein (6.3-8.2) g/dL Albumin (3.5-5.0) g/dL Globulin (1.7-4.1) g/dL Albumin/Globulin Ratio (1.0-2.8) Lipase (23-300) U/L Urine Color Urine Appearance Urine pH (4.5-8.0) Ur Specific [place] (1.000-1.035) Urine Protein (Negative) Urine Glucose (UA) (Negative) g/dL Urine Ketones (NEGATIVE) Urine Occult Blood (Negative) Urine Nitrate (Negative) Urine Bilirubin (NEGATIVE) Urine Urobilinogen (0.2) E.U./dL Ur Leukocyte Esterase (NEGATIVE) Urine RBC (0-5/HPF) Urine WBC (0-5/HPF) Ur Squamous Epith Cells (0-5/HPF) Urine Bacteria (None) Ur Culture Indicated? Ethyl Alcohol < 10 ( - 10) mg/dL 03/20/22 03/20/22 03/20/22 Range/Units 00:04 00:16 00:56 WBC (4.5-11.0) X10^3/uL RBC (4.5-5.9) X10^6/uL Hgb (13.5-17.5) g/dL Hct (41-53) % MCV (80-100) fL MCH (26-34) PG MCHC (30-36) % RDW (11.6-14.8) % Plt Count (150-400) X10^3/uL Neut % (Auto) (50-75) % Lymph % (Auto) (25-40) % [place] % (Auto) (3-14) % Eos % (Auto) (2-4) % Baso % (Auto) (0-2) % Neut # (Auto) (7276-4033) /uL Lymph # (Auto) (9170-2826) /uL [place] # (Auto) (0-900) /uL Eos # (Auto) (0-450) /uL Baso # (Auto) (0-100) /uL RBC Morphology Anisocytosis Target Cells Acanthocytes (Spur) PT 12.4 (10.1-12.7) SECONDS INR 1.1 (0.9-1.3) APTT 37 H (26.4-36.2) SECONDS Sodium 138 (137-145) mmol/L Potassium 4.8 (3.4-5.1) mmol/L Chloride 112 H (98-107) mmol/L Carbon Dioxide 18 L (22-32) mmol/L BUN 74 H (9-20) mg/dL Creatinine 5.45 H (0.66-1.25) mg/dL Estimated GFR 11 L (>60) mL/min BUN/Creatinine Ratio 13.6 (6-22) Glucose 97 (70-100) mg/dL Lactate 1.4 (0.7-2.1) mmol/L Calcium 8.5 (8.4-10.2) mg/dL Total Bilirubin 1.3 (0.2-1.3) mg/dL AST 26 (17-59) IU/L ALT 12 (<50) IU/L Alkaline Phosphatase 192 H (38-126) U/L Ammonia (9-30) umol/L Total Creatine Kinase 107 (55-170) U/L CK-MB (CK-2) 2.10 (<2.37) ng/mL CK-MB (CK-2) Rel Index 2.0 (1.5-5.0) % Troponin I 0.030 (0.01-0.034) ng/mL Total Protein 5.8 L (6.3-8.2) g/dL Albumin 2.6 L (3.5-5.0) g/dL Globulin 3.2 (1.7-4.1) g/dL Albumin/Globulin Ratio 0.8 L (1.0-2.8) Lipase 25 (23-300) U/L Urine Color Urine Appearance Urine pH (4.5-8.0) Ur Specific [place] (1.000-1.035) Urine Protein (Negative) Urine Glucose (UA) (Negative) g/dL Urine Ketones (NEGATIVE) Urine Occult Blood (Negative) Urine Nitrate (Negative) Urine Bilirubin (NEGATIVE) Urine Urobilinogen (0.2) E.U./dL Ur Leukocyte Esterase (NEGATIVE) Urine RBC (0-5/HPF) Urine WBC (0-5/HPF) Ur Squamous Epith Cells (0-5/HPF) Urine Bacteria (None) Ur Culture Indicated? Ethyl Alcohol ( - 10) mg/dL 03/20/22 Range/Units 03:33 WBC (4.5-11.0) X10^3/uL RBC (4.5-5.9) X10^6/uL Hgb (13.5-17.5) g/dL Hct (41-53) % MCV (80-100) fL MCH (26-34) PG MCHC (30-36) % RDW (11.6-14.8) % Plt Count (150-400) X10^3/uL Neut % (Auto) (50-75) % Lymph % (Auto) (25-40) % [place] % (Auto) (3-14) % Eos % (Auto) (2-4) % Baso % (Auto) (0-2) % Neut # (Auto) (4894-3497) /uL Lymph # (Auto) (2670-4654) /uL [place] # (Auto) (0-900) /uL Eos # (Auto) (0-450) /uL Baso # (Auto) (0-100) /uL RBC Morphology Anisocytosis Target Cells Acanthocytes (Spur) PT (10.1-12.7) SECONDS INR (0.9-1.3) APTT (26.4-36.2) SECONDS Sodium (137-145) mmol/L Potassium (3.4-5.1) mmol/L Chloride (98-107) mmol/L Carbon Dioxide (22-32) mmol/L BUN (9-20) mg/dL Creatinine (0.66-1.25) mg/dL Estimated GFR (>60) mL/min BUN/Creatinine Ratio (6-22) Glucose (70-100) mg/dL Lactate (0.7-2.1) mmol/L Calcium (8.4-10.2) mg/dL Total Bilirubin (0.2-1.3) mg/dL AST (17-59) IU/L ALT (<50) IU/L Alkaline Phosphatase (38-126) U/L Ammonia (9-30) umol/L Total Creatine Kinase (55-170) U/L CK-MB (CK-2) (<2.37) ng/mL CK-MB (CK-2) Rel Index (1.5-5.0) % Troponin I (0.01-0.034) ng/mL Total Protein (6.3-8.2) g/dL Albumin (3.5-5.0) g/dL Globulin (1.7-4.1) g/dL Albumin/Globulin Ratio (1.0-2.8) Lipase (23-300) U/L Urine Color Yellow Urine Appearance Clear Urine pH 5.5 (4.5-8.0) Ur Specific [place] 1.015 (1.000-1.035) Urine Protein 3+ H (Negative) Urine Glucose (UA) Negative (Negative) g/dL Urine Ketones Negative (NEGATIVE) Urine Occult Blood 3+ H (Negative) Urine Nitrate Negative (Negative) Urine Bilirubin Negative (NEGATIVE) Urine Urobilinogen 0.2 (0.2) E.U./dL Ur Leukocyte Esterase Negative (NEGATIVE) Urine RBC 30-100/hpf H (0-5/HPF) Urine WBC 0-1/hpf (0-5/HPF) Ur Squamous Epith Cells 0-1 /hpf (0-5/HPF) Urine Bacteria Few (2-10) H (None) Ur Culture Indicated? Cult not indicated Ethyl Alcohol ( - 10) mg/dL Imaging Data CT scan - head: Radiologist's Impression: [address] [address] [address] Scan Report Signed Patient: Earnest Wilks MR#: [id number] : 1965 Acct:[id number] Age/Sex: 56 / M Date of Service: 03/20/22 Loc: ED Accession Number: [id number] ?? Procedure: CT head/brain wo con Ordering Provider: Mei Akhtar D.O. PROCEDURE:? CT HEAD/BRAIN WO CON ? INDICATIONS:? confusion ? TECHNIQUE:? Noncontrast 5 mm thick angled axial sections acquired from the foramen magnum to the vertex, with coronal and sagittal reformats.? For radiation dose reduction, the following was used:? automated exposure control, adjustment of mA and/or kV according to patient size.? ? COMPARISON:? [facility], CT, CT HEAD/BRAIN WO CON, 02/16/2022, 17:47. ? FINDINGS:? Image quality:? Excellent.? ? CSF spaces:? Basal cisterns are patent.? No extra-axial fluid collections.? There is moderate cerebral volume loss, with resultant ventricular and sulcal prominence.? ? Brain:? No intracranial hemorrhage, mass, or mass effect.? There are cano bcortical, periventricular and deep white matter hypodensities consistent with moderate chronic small vessel ischemic changes.? The robles-white matter junction appears preserved.? There is intracranial internal carotid artery atherosclerosis.? ? Skull and face:? Calvarium and visualized facial bones are intact, without suspicious lesions.? ? Sinuses:? Visualized sinuses and mastoids are clear.? ? IMPRESSION:? ? 1. No acute intracranial abnormality. ? 2. Moderate cerebral volume loss and chronic white matter small vessel ischemic changes.? Dictated by: Dom Berman M.D. on 03/20/2022 at 1:49 ? ? Approved by: Dom Berman M.D. on 03/20/2022 at 1:50 ? Chest x-ray: Radiologist's Impression: [place] [address] XRay Report Signed Patient: Earnest Wilks MR#: [id number] : 1965 Acct:[id number] Age/Sex: 56 / M Date of Service: 03/20/22 Loc: ED Accession Number: [id number] ?? Procedure: XR chest 1V Ordering Provider: Mei Akhtar D.O. PROCEDURE:? XR CHEST 1V ? INDICATIONS:? chest pain ? TECHNIQUE:? One view of the chest was acquired.? ? COMPARISON:? [facility], CR, XR CHEST FOR PICC 1V, 02/28/2022, 9:10. ? FINDINGS:? ? Surgical changes and devices:? None.? ? Lungs and pleura:? There is pulmonary edema.? No pleural effusions or pneumothorax.? ? Mediastinum:? Mediastinal contours appear normal.? Heart size is normal.? ? Bones and chest wall:? No suspicious bony lesions.? Overlying soft tissues appear unremarkable.? ? IMPRESSION:? ? 1. Pulmonary edema which may be due to cardiogenic or noncardiogenic etiologies such as atypical pneumonia. ? ? Dictated by: Dom Berman M.D. on 03/20/2022 at 1:08 ? ? ECG Data Interpretation: Low voltage sinus rhythm rate 67 MA interval 164 QRS [address] changes MDM Narrative Medical decision making narrative: Patient's blood work is stable. He is anemic but not any more than normal. His chronic kidney disease is stable. He has previously been evaluated by Nephrology she states that he is not a dialysis candidate. Patient had a head CT which is negative. His thoracic spine x-ray is some similar is. He has been given multiple doses of Dilaudid and Valium in the emergency department. His ammonia level is 86 in lower than what has been previously. At this time there is no need for admission is. Patient understands this and he will be discharged when a ride available Discharge Plan Departure Patient Disposition: Home Clinical Impression: Acute exacerbation of chronic low back pain Instructions: DI for Back Strain or Sprain Activity Restrictions/Additional Instructions: *You have been diagnosed with back pain *What to do: Increase activity as tolerated try heating pad rest *Continue to take medications as directed *Follow up with your primary care provider in 2-3 days or call [phone] *Return to ER if you should have any new, worsening or concerning symptoms Prescriptions: No Action tamsulosin 0.4 mg Capsule 0.4 mg PO BEDTIME oxycodone 10 mg Tablet 10 mg PO Q3HR PRN (Reason: Pain, Severe (7-10)) Qty: 60 0RF lactulose 20 gram/30 mL Solution 30 gm PO TID Qty: 49890 0RF famotidine [Pepcid AC] 20 mg Tablet 20 mg PO BEDTIME Qty: 120 0RF furosemide [Lasix] 40 mg tablet 40 mg PO DAILY Qty: 5 0RF prednisone 5 mg Tablet 5 mg PO DAILY PRN (Reason: gout flare) fentanyl 25 mcg/hr Patch 72 Hour 1 patch TRANSDERMAL Q72H docusate sodium 250 mg Capsule 250 mg PO BID ondansetron 4 mg Tablet,Disintegrating 4 mg PO Q8H PRN (Reason: nausea / vomiting) cholecalciferol (vitamin D3) 25 mcg (1,000 unit) Capsule 25 mcg PO DAILY Complete Multivitamin Tablet 1 tab PO DAILY zinc sulfate 50 mg zinc (220 mg) Capsule 50 mg PO QAM thiamine mononitrate (vit B1) 100 mg Tablet 100 mg PO QAM losartan 25 mg tablet 25 mg PO QAM quetiapine [Seroquel] 25 mg Tablet 25 mg PO BEDTIME cyclosporine modified 25 mg Capsule 25 mg PO BID allopurinol 100 mg Tablet 100 mg PO DAILY mycophenolate mofetil [CellCept] 500 mg Tablet 500 mg PO BID lidocaine [Lidoderm] 5 % Adhesive Patch,Medicated 1 patch TOPICAL DAILY PRN (Reason: Back Pain) ursodiol 300 mg Capsule 300 mg PO BID gabapentin 300 mg Capsule 300 mg PO BID duloxetine [Cymbalta] 20 mg Capsule,Delayed Release(Dr/Ec) 20 mg PO DAILY pantoprazole [Protonix] 40 mg tablet,delayed release (DR/EC) 40 mg PO DAILY Qty: 30 0RF Xifaxan 550 mg Tablet 550 mg PO BID metoprolol succinate 25 mg tablet extended release 24 hr 25 mg PO BID Referrals: Kevin Porter MD [Primary Care Provider] - Visit Report Forms: Patient Portal/API
--- NOTE | 2022-03-20 00:03 | DI.RAD.S_ITS ---
PROCEDURE: XR CHEST 1V INDICATIONS: chest pain TECHNIQUE: One view of the chest was acquired. COMPARISON: [facility], CR, XR CHEST FOR PICC 1V, 02/28/2022, 9:10. FINDINGS: Surgical changes and devices: None. Lungs and pleura: There is pulmonary edema. No pleural effusions or pneumothorax. Mediastinum: Mediastinal contours appear normal. Heart size is normal. Bones and chest wall: No suspicious bony lesions. Overlying soft tissues appear unremarkable. IMPRESSION: 1. Pulmonary edema which may be due to cardiogenic or noncardiogenic etiologies such as atypical pneumonia. Dictated by: Dom Berman M.D. on 03/20/2022 at 1:08 Approved by: Dom Berman M.D. on 03/20/2022 at 1:08
[2022-03-20 00:28] LABS: Add Manual Diff / Slide Review NO; Basophils Absolute Auto 100 /uL (0-100); Basophils Percent Auto 1.2 % (0-2); Eosinophils Absolute Auto 0 /uL (0-450); Eosinophils Percent Auto 0.5 % (2-4); Hemoglobin 7.5 g/dL (13.5-17.5); Lymphocytes Absolute Auto 3800 /uL (1100-4500); Lymphocytes Percent Auto 47.8 % (25-40); Mean Corpuscular HGB Conc 31.9 % (30-36); Mean Corpuscular Hemoglobin 31.3 PG (26-34); Mean Corpuscular Volume 98.1 fL (80-100); Monocytes Absolute Auto 600 /uL (0-900); Monocytes Percent Auto 7.6 % (3-14); Neutrophils Absolute Auto 3400 /uL (1500-7000); Neutrophils Percent Auto 42.9 % (50-75); Platelet Count 145 X10^3/uL (150-400); Red Blood Cell Count 2.38 X10^6/uL (4.5-5.9); Red Cell Distribution Width 20.2 % (11.6-14.8)
[2022-03-20 00:34] LABS: Ammonia (NH3) 86 umol/L (9-30); Ethanol (ETOH) < 10 mg/dL
[2022-03-20 00:36] LABS: Alanine Aminotransferase 12 IU/L (<50); Albumin 2.6 g/dL (3.5-5.0); Albumin Globulin Ratio 0.8 (1.0-2.8); Alkaline Phosphatase 192 U/L (38-126); Aspartate Aminotransferase 26 IU/L (17-59); BUN Creatinine Ratio 13.6 (6-22); Bilirubin Total 1.3 mg/dL (0.2-1.3); Blood Urea Nitrogen 74 mg/dL (9-20); Calcium 8.5 mg/dL (8.4-10.2); Carbon Dioxide 18 mmol/L (22-32); Chloride 112 mmol/L (98-107); Creatine Kinase 107 U/L (55-170); Estimated Glomerular Filt Rate 11 mL/min (>60); Globulin 3.2 g/dL (1.7-4.1); Glucose 97 mg/dL (70-100); HEMOLYSIS < 15 (0-50); Lipase 25 U/L (23-300); Potassium 4.8 mmol/L (3.4-5.1); Sodium 138 mmol/L (137-145); Total Protein 5.8 g/dL (6.3-8.2)
[2022-03-20 00:41] LABS: Hematocrit 23.4 % (41-53)
[2022-03-20 00:52] LABS: Anisocytosis 2+
[2022-03-20 00:55] LABS: Acanthocytes 1+; Target Cells 1+
[2022-03-20] MEDS: SODIUM CHLORIDE 0.9% 1,000 ML 150 ML IV (01:11)
[2022-03-20] MEDS: HYDROMORPHONE 0.5 MG INJ IV (01:11)
[2022-03-20 01:15] LABS: INR 1.1 (0.9-1.3); Prothrombin Time 12.4 SECONDS (10.1-12.7)
[2022-03-20 01:18] LABS: PTT Partial Thromboplastin Tim 37 SECONDS (26.4-36.2)
--- NOTE | 2022-03-20 01:28 | DI.CT.S_ITS ---
PROCEDURE: CT HEAD/BRAIN WO CON INDICATIONS: confusion TECHNIQUE: Noncontrast 5 mm thick angled axial sections acquired from the foramen magnum to the vertex, with coronal and sagittal reformats. For radiation dose reduction, the following was used: automated exposure control, adjustment of mA and/or kV according to patient size. COMPARISON: [facility], CT, CT HEAD/BRAIN WO CON, 02/16/2022, 17:47. FINDINGS: Image quality: Excellent. CSF spaces: Basal cisterns are patent. No extra-axial fluid collections. There is moderate cerebral volume loss, with resultant ventricular and sulcal prominence. Brain: No intracranial hemorrhage, mass, or mass effect. There are subcortical, periventricular and deep white matter hypodensities consistent with moderate chronic small vessel ischemic changes. The robles-white matter junction appears preserved. There is intracranial internal carotid artery atherosclerosis. Skull and face: Calvarium and visualized facial bones are intact, without suspicious lesions. Sinuses: Visualized sinuses and mastoids are clear. IMPRESSION: 1. No acute intracranial abnormality. 2. Moderate cerebral volume loss and chronic white matter small vessel ischemic changes. Dictated by: Dom Berman M.D. on 03/20/2022 at 1:49 Approved by: Dom Berman M.D. on 03/20/2022 at 1:50
[2022-03-20 01:44] LABS: Lactate (Lactic Acid) 1.4 mmol/L (0.7-2.1)
--- NOTE | 2022-03-20 02:00 | PC.NURSE ---
Pt frequently moaning out saying help. Help me. Upon this RN coming into room pt unable to articulate what he wants help with. Pt repeatedly doing this. Provider aware of this behavior.
--- NOTE | 2022-03-20 02:34 | DI.RAD.S_ITS ---
PROCEDURE: XR THORACIC SPINE 2V INDICATIONS: fall pain TECHNIQUE: 3 views of the thoracic spine were acquired. COMPARISON: [facility], CT, CT CHEST ABD PEL WO CON, 01/19/2022, 1:48. [facility], CR, XR CHEST 1V, 02/04/2022, 13:09. [facility], CR, XR CHEST FOR PICC 1V, 02/28/2022, 9:10. [facility], CR, XR CHEST 1V, 03/20/2022, 0:11. FINDINGS: Bones: Multiple chronic appearing compression fracture of T7, T9, T10, T11, T12 and L1. No suspicious bony lesions. Mild scoliosis and degenerative changes. Partial visualization of lower cervical spine fusion. 12 pairs of ribs are noted, and appear intact where visualized. Note is made of left shoulder prosthesis. Soft tissues: No paravertebral stripe thickening. IMPRESSION: 1. Multiple chronic appearing compression fractures in thoracic spine. Dictated by: Sandi Rios M.D. on 03/20/2022 at 8:37 Approved by: Sandi Rios M.D. on 03/20/2022 at 8:40
[2022-03-20] MEDS: diazePAM 10 MG/2 ML SYRINGE 2 MG IV (03:03)
--- NOTE | 2022-03-20 03:17 | PC.NURSE ---
Pt continues to call out nurse, nurse, NURSE louder and louder until staff come to bedside. Pt reminded yet again to utilize call light instead of yelling for staff. Pt c/o pain and asking for dilaudid. Pt informed dilaudid has been ordered and this RN will grab it for him. After stepping out of his room. Pt continues to yell nurse. This RN turned around to ask what pt needs. Pt states he is in pain. This RN informed him that in order for the pt to receive the medication, this RN needs to leave the room to go get it. Pt states OK.
[2022-03-20] MEDS: HYDROMORPHONE 1 MG INJ IV (03:19)
--- NOTE | 2022-03-20 03:38 | PC.NURSE ---
Pt called this RN to room needing to use the restroom. Pt walked to restroom independently, voided, then was able to walk back to room without any assistance. Pt provided with warm blankets upon returning to bed.
[2022-03-20 03:44] LABS: Appearance Urine UA CLEAR; Bilirubin Urine UA NEGATIVE (NEGATIVE); Color Urine UA YELLOW; Glucose Urine UA NEGATIVE (Negative); Ketones Urine UA NEGATIVE (NEGATIVE); Leukocyte Esterase Urine UA NEGATIVE (NEGATIVE); Nitrite Urine UA NEGATIVE (Negative); Occult Blood Urine UA 3+ (Negative); Protein Urine UA 3+ (Negative); Specific Gravity Urine UA 1.015 (1.000-1.035); Urobilinogen Urine UA 0.2 E.U./dL (0.2); pH Urine UA 5.5 (4.5-8.0)
[2022-03-20 03:47] LABS: RBC Urine 30-100/HPF (0-5/HPF); Squamous Epithelial Cell Urine 0-1 /HPF (0-5/HPF); WBC Urine 0-1/HPF (0-5/HPF)
[2022-03-20 03:48] LABS: Bacteria Urine Few (2-10)
[2022-03-20 03:51] LABS: Culture Indicated Urine Cult Not Indicated
--- NOTE | 2022-03-20 03:52 | PC.NURSE ---
Pt again calling out nurse, NURSE. Pt then used call light appropriately to call staff to room. Pt asking for more warm blankets. Pt has received 9 warm blankets since arrival. Pt informed of this, but more warm blankets provided as pt was being rude to staff. Pt placed call light on 4 more times within a time span of 5 minutes. Pt repositioned and given cup of water. Provider in to see pt to inform him that once taxi services are running, he will be discharged via taxi. Lights turned off, call light remains in reach, door closed.
--- NOTE | 2022-03-20 05:06 | PC.NURSE ---
Pt continues to yell nurse. Mauro went into room to find pt snoring asleep. Pt then began yelling nurse frequently. Staff unable to go into room for a few minutes, but when this RN was able to go see pt, pt began asking for pain medications. Pt reminded that the provider has put him up for discharge and will not be giving him further medications for non-acute problems. Pt is waiting in ER until taxi services are up and running.
--- NOTE | 2022-03-20 05:23 | PC.NURSE ---
pt opened door called out for nurse. pt wandering in room, pt removed from monitors, piv removed. pt ambulatory without difficulty resp even unlabored.
== END 2022-03-20 06:32 | disposition home or self-care (01) ==
PROVIDERS: Emergency Provider Emergency Medicine; Family Provider Internal Medicine; PCP Internal Medicine
DX: R07.9 Chest pain, unspecified (principal); M54.50 Low back pain, unspecified; R41.0 Disorientation, unspecified
CPT/HCPCS: 36415; 70450; 71045; 72070; 80053; 80320; 81001; 82140; 82550; 82553; 83605; 83690; 84484; 85025; 85610; 85730; 93005; 96361; 96374; 96375; 96376; 99284; J1170; J3360

== ENCOUNTER 2022-03-20 12:39 | Emergency (ER) | payer OTHER, MEDICAID, SELFPAY ==
[2022-02-03 06:25] VITALS: RESP 22
[2022-02-04 19:16] VITALS: PULSE 109; RESP 25; O2SAT 100
[2022-03-20 12:46] VITALS: BP 180/90; PULSE 90; RESP 18; TEMP 36.6; O2SAT 99; BMI 30.7
--- NOTE | 2022-03-20 14:15 | DI.CT.S_ITS ---
PROCEDURE: CT HEAD/BRAIN WO CON INDICATIONS: confusion TECHNIQUE: Noncontrast 4.5 mm thick angled axial sections acquired from the foramen magnum to the vertex, with coronal and sagittal reformats. For radiation dose reduction, the following was used: automated exposure control, adjustment of mA and/or kV according to patient size. COMPARISON: [facility], MR, MR BRAIN WITHOUT CONTRAST, 04/01/2018, 21:50. [facility], CT, CT HEAD/BRAIN WO CON, 06/24/2021, 14:13. [facility], CT, CT HEAD/BRAIN WO CON, 06/30/2021, 13:45. [facility], CT, CT HEAD/BRAIN WO CON, 02/16/2022, 17:47. [facility], CT, CT HEAD/BRAIN WO CON, 11/26/2021, 3:09. [facility], CT, CT HEAD/BRAIN WO CON, 03/20/2022, 1:43. FINDINGS: Image quality: Excellent. CSF spaces: Basal cisterns are patent. No extra-axial fluid collections. Ventricles are normal in size and shape. Brain: No midline shift. No intracranial masses or hemorrhage. Sibley-white matter interface is normal. Note is made of age-appropriate brain parenchymal volume loss and chronic small vessel ischemic changes. Skull and face: Calvarium and visualized facial bones are intact, without suspicious lesions. Sinuses: Visualized sinuses and mastoids are clear. IMPRESSION: Stable head CT, with mild brain parenchymal volume loss and chronic small vessel ischemic change. Dictated by: Mitchell Hernandez M.D. on 03/20/2022 at 13:48 Approved by: Mitchell Hernandez M.D. on 03/20/2022 at 13:50
--- NOTE | 2022-03-20 14:16 | DI.RAD.S_ITS ---
PROCEDURE: XR CHEST 1V INDICATIONS: confusion TECHNIQUE: One view of the chest was acquired. COMPARISON: [facility], CR, XR CHEST 1V, 03/20/2022, 0:11. FINDINGS: Surgical changes and devices: Cervical fixation hardware is intact. Lungs and pleura: There is diffuse interstitial prominence. No focal airspace opacities. Mediastinum: Mediastinal contours appear normal. Heart size is normal. Bones and chest wall: No suspicious bony lesions. Overlying soft tissues appear unremarkable. IMPRESSION: Interstitial prominence suggesting fluid overload. Dictated by: Andressa Lopez M.D. on 03/20/2022 at 14:46 Approved by: Andressa Lopez M.D. on 03/20/2022 at 14:47
[2022-03-20 16:20] VITALS: BP 183/99; PULSE 74; RESP 18; TEMP 36.8; O2SAT 99
[2022-03-20 17:15] LABS: Add Manual Diff / Slide Review NO; Basophils Absolute Auto 100 /uL (0-100); Basophils Percent Auto 1.1 % (0-2); Eosinophils Absolute Auto 100 /uL (0-450); Eosinophils Percent Auto 1.4 % (2-4); Hematocrit 23.6 % (41-53); Hemoglobin 7.7 g/dL (13.5-17.5); Lymphocytes Absolute Auto 2900 /uL (1100-4500); Lymphocytes Percent Auto 36.9 % (25-40); Mean Corpuscular HGB Conc 32.8 % (30-36); Mean Corpuscular Hemoglobin 31.9 PG (26-34); Mean Corpuscular Volume 97.4 fL (80-100); Monocytes Absolute Auto 1000 /uL (0-900); Monocytes Percent Auto 13.2 % (3-14); Neutrophils Absolute Auto 3700 /uL (1500-7000); Neutrophils Percent Auto 47.4 % (50-75); Platelet Count 160 X10^3/uL (150-400); Red Blood Cell Count 2.43 X10^6/uL (4.5-5.9); Red Cell Distribution Width 19.9 % (11.6-14.8); White Blood Cell Count 7.8 X10^3/uL (4.5-11.0)
[2022-03-20 17:22] LABS: INR 1.1 (0.9-1.3)
[2022-03-20 17:25] LABS: PTT Partial Thromboplastin Tim 32 SECONDS (26.4-36.2)
[2022-03-20 17:28] LABS: Ammonia (NH3) 62 umol/L (9-30)
[2022-03-20 17:30] LABS: Ethanol (ETOH) < 10 mg/dL
[2022-03-20 17:57] VITALS: BP 205/99; PULSE 72; RESP 18; TEMP 36.5; O2SAT 100
[2022-03-20 18:26] LABS: Alanine Aminotransferase 12 IU/L (<50); Albumin 2.8 g/dL (3.5-5.0); Albumin Globulin Ratio 0.8 (1.0-2.8); Alkaline Phosphatase 198 U/L (38-126); Aspartate Aminotransferase 33 IU/L (17-59); BUN Creatinine Ratio 13.5 (6-22); Bilirubin Total 1.2 mg/dL (0.2-1.3); Blood Urea Nitrogen 72 mg/dL (9-20); Calcium 8.6 mg/dL (8.4-10.2); Carbon Dioxide 18 mmol/L (22-32); Chloride 110 mmol/L (98-107); Estimated Glomerular Filt Rate 12 mL/min (>60); Globulin 3.3 g/dL (1.7-4.1); Glucose 114 mg/dL (70-100); HEMOLYSIS < 15 (0-50); Lipase 28 U/L (23-300); Potassium 4.6 mmol/L (3.4-5.1); Sodium 136 mmol/L (137-145); Total Protein 6.1 g/dL (6.3-8.2)
--- NOTE | 2022-03-20 18:57 | ED.MEDCLEAR ---
HPI - Medical Clearance General Chief complaint: Medical Clearance Stated complaint: Feels confused Time Seen by Provider: 03/20/22 14:15 Source: patient Mode of arrival: Ambulatory History of Present Illness HPI Narrative: Patient here essentially for medical clearance. Patient states the sponge press operator of the hotel he was staying at called the ambulance to remove him. He states that he was informed that they do not run a penitentiary. He was here yesterday because he was walking naked in the hotel. He was returned to the hotel and at that point they denied him to stay there. He denies any SI or HI. No auditory or visual hallucinations. He is at baseline with his laboratory studies. He is chronically elevated blood pressure. Has no complaints at this time. No headache chest pain back pain abdominal pain. He he states his blood pressure is always high. He states he has been under lot of stress because he is living on vouchers. He does have a lot of social work support outside the hospital. Social work is seeing patient now. Patient states he is not been sleeping very well because of a lot of stress. He is not been sleeping very well and that is why he is had some erratic behavior. Related Information Home Medications Medication Instructions Recorded Confirmed allopurinol 100 mg tablet 100 mg PO DAILY 01/14/20 03/01/22 cyclosporine modified 25 mg capsule 25 mg PO BID 01/14/20 03/01/22 duloxetine 20 mg capsule,delayed 20 mg PO DAILY 01/14/20 03/01/22 release (Cymbalta) gabapentin 300 mg capsule 300 mg PO BID 01/14/20 03/01/22 lidocaine 5 % topical patch 1 patch topical DAILY PRN Back Pain 01/14/20 03/01/22 (Lidoderm) mycophenolate mofetil 500 mg 500 mg PO BID 01/14/20 03/01/22 tablet (CellCept) quetiapine 25 mg tablet (Seroquel) 25 mg PO BEDTIME 01/14/20 03/01/22 ursodiol 300 mg capsule 300 mg PO BID 01/14/20 03/01/22 rifaximin 550 mg tablet (Xifaxan) 550 mg PO BID 09/20/20 03/01/22 metoprolol succinate 25 mg 25 mg PO BID 01/25/21 03/01/22 tablet,extended release 24 hr tamsulosin 0.4 mg capsule 0.4 mg PO BEDTIME 04/27/21 03/01/22 cholecalciferol (vitamin D3) 25 25 mcg PO DAILY 03/01/22 03/01/22 mcg (1,000 unit) capsule docusate sodium 250 mg capsule 250 mg PO BID 03/01/22 03/01/22 fentanyl 25 mcg/hr transdermal 1 patch transdermal Q72H 03/01/22 03/01/22 patch losartan 25 mg tablet 25 mg PO QAM 03/01/22 03/01/22 multivitamin,[id number]-uwxk-yvgoyjje 1 tab PO DAILY 03/01/22 03/01/22 ondansetron 4 mg disintegrating 4 mg PO Q8H PRN nausea / vomiting 03/01/22 03/01/22 tablet prednisone 5 mg tablet 5 mg PO DAILY PRN gout flare 03/01/22 03/01/22 thiamine mononitrate (vit B1) 100 100 mg PO QAM 03/01/22 03/01/22 mg tablet zinc sulfate 50 mg zinc (220 mg) 50 mg PO QAM 03/01/22 03/01/22 capsule Previous Rx's Medication Instructions Recorded pantoprazole 40 mg tablet,delayed 40 mg PO DAILY #30 tabs 05/14/20 release (Protonix) oxycodone 10 mg tablet 10 mg PO Q3HR PRN Pain, Severe 05/11/21 (7-10) #60 tabs lactulose 20 gram/30 mL oral 30 gm PO TID #11,000 mL 07/05/21 solution famotidine 20 mg tablet (Pepcid AC) 20 mg PO BEDTIME #120 tabs 07/06/21 furosemide 40 mg tablet (Lasix) 40 mg PO DAILY #5 tabs 01/17/22 Allergies Allergy/AdvReac Type Severity Reaction Status Date / Time adhesive tape Allergy Severe Paper Verified 03/05/22 13:27 tape causes big sores doxylamine [From NyQuil] Allergy Severe Seizure Verified 03/05/22 13:27 venom-honey bee Allergy Severe Wheezing, Verified 03/05/22 13:27 [BEE VENOM (HONEY BEE)] throat closing pseudoephedrine Allergy Pt does Verified 03/05/22 13:27 not recall codeine AdvReac Severe Vomiting Verified 03/05/22 13:27 dextromethorphan AdvReac Severe Seizure Verified 03/05/22 13:27 NSAIDS (Non-Steroidal AdvReac Severe Abdominal Verified 03/05/22 13:27 Anti-Inflamma Pain copper AdvReac Intermediate Soaks Verified 03/05/22 13:27 into my body and hurts my jaw and joints morphine AdvReac Intermediate Vomiting Verified 03/05/22 13:27 oxycodone AdvReac Intermediate Vomiting Verified 03/05/22 13:27 tizanidine AdvReac Unknown Pt does Verified 03/05/22 13:27 not recall Review of Systems Review of Systems Narrative: GENERAL: Denies chills, fatigue, malaise, fever, sweats. HEENT: Denies sinus pain, ear pain, sore throat RESPIRATORY: Denies dyspnea, cough CARDIOVASCULAR: Denies chest pain, palpitations GASTROINTESTINAL: Denies nausea, vomiting, abdominal pain : Denies dysuria, frequency, hematuria MUSCULOSKELETAL: denies muscle or bony pain SKIN: Denies rash, skin lesions NEUROLOGIC: Denies weakness, numbness PSYCH: Negative SI HI. Positive anxiety, negative hallucination ROS Unobtainable: All systems reviewed & are unremarkable except as noted in HPI and below Patient History Medical History Cirrhosis of liver CKD (chronic kidney disease) Compression fracture Depression Former smoker GERD (gastroesophageal reflux disease) Gout Hepatitis C (~2011) History of vertebral compression fracture Hypertension Immunosuppression Liver cancer Medical marijuana use GUILLE (obstructive sleep apnea) Osteoporosis PAC (premature atrial contraction) Pain management contract agreement Paroxysmal atrial fibrillation PVC (premature ventricular contraction) Thrombocytopenia Surgical History H/O right wrist surgery History of biliary duct stent placement (01/2013) History of open reduction and internal fixation (ORIF) procedure (09/22/20) History of removal of retained hardware (01/25/21) History of right hip replacement Hx of appendectomy (~1979) Hx of cholecystectomy (~2003) Hx of elbow surgery (~2003) Hx of elbow surgery (~2007) Hx of fusion of cervical spine Hx of hernia repair Hx of shoulder surgery (~2012) Hx of tonsillectomy (~1969) Liver transplant recipient (11/24/11) Presence of left artificial elbow joint Family History Mother Renal failure Father Diabetes mellitus Congestive heart failure Social History household members: none Smoking Status: Former smoker alcohol intake: current Smoking Status: Former smoker tobacco type: cigarettes alcohol intake frequency: a few times a month Alcohol type: hard liquor Substance Use Type: marijuana Exam Narrative Exam Narrative: GENERAL: in no distress, not toxic not dyspneic HEAD: Normocephalic. EYES: Pupils equal round No scleral icterus. ENT: Mucous membranes moist. NECK: Trachea midline. CARDIOVASCULAR: Regular rate and rhythm without murmurs RESPIRATORY: Clear to auscultation. Breath sounds equal bilaterally. No wheezes, rales, or rhonchi. GASTROINTESTINAL: Abdomen soft, non-tender EXTREMITIES: No gross deformities. BACK: No flank tenderness. NEURO: AOx4. Clear speech no facial droop light touch intact bilateral face and hands. 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 SKIN: Warm and dry PSYCH: Is slightly anxious, is cooperative, no SI or HI. Not combative. Initial Vital Signs Initial Vital Signs: Vital Signs Temperature 98 F 03/20/22 12:46 Pulse Rate 90 03/20/22 12:46 Respiratory Rate 18 03/20/22 12:46 Blood Pressure 180/90 H 03/20/22 12:46 Pulse Oximetry 99 03/20/22 12:46 Oxygen Delivery Method 03/20/22 12:46 MDM - Medical Clearance Differential Diagnosis Differential diagnosis: Likely other (Chronic kidney disease. Chronic liver failure. Chronic hypertension) Lab Data Result diagrams: 03/20/22 16:51 03/20/22 16:51 Labs: Lab Results 03/20/22 03/20/22 03/20/22 Range/Units 16:51 16:51 16:51 WBC 7.8 (4.5-11.0) X10^3/uL RBC 2.43 L (4.5-5.9) X10^6/uL Hgb 7.7 L (13.5-17.5) g/dL Hct 23.6 L (41-53) % MCV 97.4 (80-100) fL MCH 31.9 (26-34) PG MCHC 32.8 (30-36) % RDW 19.9 H (11.6-14.8) % Plt Count 160 (150-400) X10^3/uL Neut % (Auto) 47.4 L (50-75) % Lymph % (Auto) 36.9 (25-40) % [place] % (Auto) 13.2 (3-14) % Eos % (Auto) 1.4 L (2-4) % Baso % (Auto) 1.1 (0-2) % Neut # (Auto) 3700 (8616-4694) /uL Lymph # (Auto) 2900 (2682-0489) /uL [place] # (Auto) 1000 H (0-900) /uL Eos # (Auto) 100 (0-450) /uL Baso # (Auto) 100 (0-100) /uL PT (10.1-12.7) SECONDS INR (0.9-1.3) APTT (26.4-36.2) SECONDS Sodium 136 L (137-145) mmol/L Potassium 4.6 (3.4-5.1) mmol/L Chloride 110 H (98-107) mmol/L Carbon Dioxide 18 L (22-32) mmol/L BUN 72 H (9-20) mg/dL Creatinine 5.33 H (0.66-1.25) mg/dL Estimated GFR 12 L (>60) mL/min BUN/Creatinine Ratio 13.5 (6-22) Glucose 114 H (70-100) mg/dL Calcium 8.6 (8.4-10.2) mg/dL Total Bilirubin 1.2 (0.2-1.3) mg/dL AST 33 (17-59) IU/L ALT 12 (<50) IU/L Alkaline Phosphatase 198 H (38-126) U/L Ammonia 62 H (9-30) umol/L Total Protein 6.1 L (6.3-8.2) g/dL Albumin 2.8 L (3.5-5.0) g/dL Globulin 3.3 (1.7-4.1) g/dL Albumin/Globulin Ratio 0.8 L (1.0-2.8) Lipase 28 (23-300) U/L Ethyl Alcohol ( - 10) mg/dL 03/20/22 03/20/22 Range/Units 16:51 16:51 WBC (4.5-11.0) X10^3/uL RBC (4.5-5.9) X10^6/uL Hgb (13.5-17.5) g/dL Hct (41-53) % MCV (80-100) fL MCH (26-34) PG MCHC (30-36) % RDW (11.6-14.8) % Plt Count (150-400) X10^3/uL Neut % (Auto) (50-75) % Lymph % (Auto) (25-40) % [place] % (Auto) (3-14) % Eos % (Auto) (2-4) % Baso % (Auto) (0-2) % Neut # (Auto) (1049-9437) /uL Lymph # (Auto) (3817-5694) /uL [place] # (Auto) (0-900) /uL Eos # (Auto) (0-450) /uL Baso # (Auto) (0-100) /uL PT 12.0 (10.1-12.7) SECONDS INR 1.1 (0.9-1.3) APTT 32 (26.4-36.2) SECONDS Sodium (137-145) mmol/L Potassium (3.4-5.1) mmol/L Chloride (98-107) mmol/L Carbon Dioxide (22-32) mmol/L BUN (9-20) mg/dL Creatinine (0.66-1.25) mg/dL Estimated GFR (>60) mL/min BUN/Creatinine Ratio (6-22) Glucose (70-100) mg/dL Calcium (8.4-10.2) mg/dL Total Bilirubin (0.2-1.3) mg/dL AST (17-59) IU/L ALT (<50) IU/L Alkaline Phosphatase (38-126) U/L Ammonia (9-30) umol/L Total Protein (6.3-8.2) g/dL Albumin (3.5-5.0) g/dL Globulin (1.7-4.1) g/dL Albumin/Globulin Ratio (1.0-2.8) Lipase (23-300) U/L Ethyl Alcohol < 10 ( - 10) mg/dL Imaging Data Chest x-ray: Radiologist's Impression: [address] [address] XRay Report Signed Patient: Earnest Wilks MR#: [id number] : 1965 Acct:[id number] Age/Sex: 56 / M Date of Service: 03/20/22 Loc: ED Accession Number: [id number] ?? Procedure: XR chest 1V Ordering Provider: Yanique Hoyt D.O. PROCEDURE:? XR CHEST 1V ? INDICATIONS:? confusion ? TECHNIQUE:? One view of the chest was acquired.? ? COMPARISON:? [facility], CR, XR CHEST 1V, 03/20/2022, 0:11. ? FINDINGS:? ? Surgical changes and devices:? Cervical fixation hardware is intact. ? Lungs and pleura:? There is diffuse interstitial prominence.? No focal airspace opacities. ? Mediastinum:? Mediastinal contours appear normal.? Heart size is normal.? ? Bones and chest wall:? No suspicious bony lesions.? Overlying soft tissues appear unremarkable.? ? IMPRESSION:? Interstitial prominence suggesting fluid overload. ? ? Dictated by: Andressa Lopez M.D. on 03/20/2022 at 14:46 ? ? Approved by: Andressa Lopez M.D. on 03/20/2022 at 14:47 ? CT scan - head: Radiologist's Impression: [place] [address] CT Scan Report Signed Patient: Earnest Wilks MR#: [id number] : 1965 Acct:[id number] Age/Sex: 56 / M Date of Service: 03/20/22 Loc: ED Accession Number: [id number] ?? Procedure: CT head/brain wo con Ordering Provider: Yanique Hoyt D.O. PROCEDURE:? CT HEAD/BRAIN WO CON ? INDICATIONS:? confusion ? TECHNIQUE:? Noncontrast 4.5 mm thick angled axial sections acquired from the foramen magnum to the vertex, with coronal and sagittal reformats.? For radiation dose reduction, the following was used:? automated exposure control, adjustment of mA and/or kV according to patient size.? ? COMPARISON:? [facility], MR, MR BRAIN WITHOUT CONTRAST, 04/01/2018, 21:50.? [facility], CT, CT HEAD/BRAIN WO CON, 06/24/2021, 14:13.? [facility], CT, CT HEAD/BRAIN WO CON, 06/30/2021, 13:45.? [facility], CT, CT HEAD/BRAIN WO CON, 02/16/2022, 17:47.? [facility], CT, CT HEAD/BRAIN WO CON, 11/26/2021, 3:09.? [facility], CT, CT HEAD/BRAIN WO CON, 03/20/2022, 1:43. ? FINDINGS:? Image quality:? Excellent.? ? CSF spaces:? Basal cisterns are patent.? No extra-axial fluid collections.? Ventricles are normal in size and shape.? ? Brain:? No midline shift.? No intracranial masses or hemorrhage.? Sibley-white matter interface is normal.? Note is made of age-appropriate brain parenchymal volume loss and chronic small vessel ischemic changes. ? Skull and face:? Calvarium and visualized facial bones are intact, without suspicious lesions.? ? Sinuses:? Visualized sinuses and mastoids are clear.? ? IMPRESSION:? Stable head CT, with mild brain parenchymal volume loss and chronic small vessel ischemic change.? ? ? Dictated by: Mitchell Hernandez M.D. on 03/20/2022 at 13:48 ? ? Approved by: Mitchell Hernandez M.D. on 03/20/2022 at 13:50 ? ECG Data Interpretation: Sinus rhythm rate [address] elevation or depression MDM Narrative Medical decision making narrative: Appropriate for discharge home. Patient denies any SI or HI. Is at baseline with behavior as well as laboratory studies and imaging. Patient needed social work evaluation for placement. 7:08 p.m.. Joselyn, social work has spoken with patient and also she did call the hotel. He does still have a room. He is welcome back. I spoke with patient with Joselyn. Patient is happy and glad to have a room and desires discharge home. Review of patient's labs and vital signs. He is at baseline for all of these. He does not want any further treatments. He does not want any adjustments to his medications or his vital signs. He does not want his home medications taken prior to departure. Particularly the blood pressure medication Discharge Plan Departure Patient Disposition: Home Clinical Impression: CKD (chronic kidney disease), Encounter for medical screening examination Activity Restrictions/Additional Instructions: Return if worse if any questions or concerns. See your family doctor and providers as scheduled. Please continue home medications. Prescriptions: No Action tamsulosin 0.4 mg Capsule 0.4 mg PO BEDTIME oxycodone 10 mg Tablet 10 mg PO Q3HR PRN (Reason: Pain, Severe (7-10)) Qty: 60 0RF lactulose 20 gram/30 mL Solution 30 gm PO TID Qty: 76888 0RF famotidine [Pepcid AC] 20 mg Tablet 20 mg PO BEDTIME Qty: 120 0RF furosemide [Lasix] 40 mg tablet 40 mg PO DAILY Qty: 5 0RF prednisone 5 mg Tablet 5 mg PO DAILY PRN (Reason: gout flare) fentanyl 25 mcg/hr Patch 72 Hour 1 patch TRANSDERMAL Q72H docusate sodium 250 mg Capsule 250 mg PO BID ondansetron 4 mg Tablet,Disintegrating 4 mg PO Q8H PRN (Reason: nausea / vomiting) cholecalciferol (vitamin D3) 25 mcg (1,000 unit) Capsule 25 mcg PO DAILY Complete Multivitamin Tablet 1 tab PO DAILY zinc sulfate 50 mg zinc (220 mg) Capsule 50 mg PO QAM thiamine mononitrate (vit B1) 100 mg Tablet 100 mg PO QAM losartan 25 mg tablet 25 mg PO QAM quetiapine [Seroquel] 25 mg Tablet 25 mg PO BEDTIME cyclosporine modified 25 mg Capsule 25 mg PO BID allopurinol 100 mg Tablet 100 mg PO DAILY mycophenolate mofetil [CellCept] 500 mg Tablet 500 mg PO BID lidocaine [Lidoderm] 5 % Adhesive Patch,Medicated 1 patch TOPICAL DAILY PRN (Reason: Back Pain) ursodiol 300 mg Capsule 300 mg PO BID gabapentin 300 mg Capsule 300 mg PO BID duloxetine [Cymbalta] 20 mg Capsule,Delayed Release(Dr/Ec) 20 mg PO DAILY pantoprazole [Protonix] 40 mg tablet,delayed release (DR/EC) 40 mg PO DAILY Qty: 30 0RF Xifaxan 550 mg Tablet 550 mg PO BID metoprolol succinate 25 mg tablet extended release 24 hr 25 mg PO BID Referrals: Kevin Porter MD [Primary Care Provider] - Visit Report Forms: Patient Portal/API
[2022-03-20 19:12] VITALS: BP 185/102; PULSE 77
[2022-03-20] MEDS: LOSARTAN 25 MG TABLET PO (19:12)
[2022-03-20 19:13] VITALS: BP 185/102; PULSE 77
[2022-03-20] MEDS: METOPROLOL ER 25 MG TABLET PO (19:13)
[2022-03-20] MEDS: FUROSEMIDE 40 MG TABLET PO (19:13)
--- NOTE | 2022-03-20 19:17 | CM.SWNOTE ---
TRUCKLOAD CHECKER Note Patient is 56 y/o male who presents today to ED via EMS due to concern for confusion. Patient has hx of HCV cirrhosis, HCC, hx of ETOH use, Hepatic Encephanopathy hx of covid +. Patient presents as A/Ox3. Patient states he resides at [facility] and was concerned that he is not able to return to the [facility]. TRUCKLOAD CHECKER calls [facility] and speaks with javascript front end developer, they confirm he can return to [facility]. patient endorses concern for his confusion and states that he has not been able to sleep. Patient presents as apologetic for his actions and states that the [facility] staff said this is not a [place] [facility] facility. Patient has several outpatient members that supports him with [employer], state social workers and community django developer Sanjay Dinh TRUCKLOAD CHECKER emails team and provides update. Patient endorses he is open to residing at a [facility]. Per ED provider Dr. Hernandez, patient is medically clear for d/c. Plan: Patient to d/c when medically clear via taxi voucher to [facility]. Joselyn Sandoval, SPRINKLER INSTALLER
== END 2022-03-20 19:25 | disposition home or self-care (01) ==
PROVIDERS: Emergency Medicine; Emergency Provider Emergency Medicine; Family Provider Internal Medicine; PCP Internal Medicine
DX: N18.9 Chronic kidney disease, unspecified (principal); R07.9 Chest pain, unspecified
CPT/HCPCS: 36415; 70450; 71045; 80053; 80320; 82140; 83690; 85025; 85610; 85730; 93005; 93010; 99284; J1642

== ENCOUNTER 2022-03-31 23:47 | Inpatient (IN) | payer OTHER, MEDICAID, SELFPAY ==
[2022-02-03 06:25] VITALS: RESP 22
[2022-02-04 19:16] VITALS: PULSE 109; RESP 25; O2SAT 100
[2022-03-31 23:52] VITALS: PULSE 98; RESP 37; O2SAT 96
[2022-03-31 23:53] VITALS: BP 213/113; PULSE 94; RESP 22; TEMP 37.9; O2SAT 96; BMI 34.4
[2022-04-01] VITALS (29 sets, daily range): BP systolic 147–208; BP diastolic 91–112; PULSE 69–153; RESP 13–24; TEMP 36.1–38; O2SAT 92–99; BMI 34.4
--- NOTE | 2022-04-01 | DI.MRI.S_ITS ---
PROCEDURE: MR HEAD/BRAIN WO CON INDICATIONS: right sided weakness and headache TECHNIQUE: Noncontrast axial T1 spin echo, axial T2 fast spin echo, sagittal and axial FLAIR, coronal T2 fast spin echo, axial gradient echo, axial diffusion and ADC through the brain. COMPARISON: [facility], CT, CT HEAD/BRAIN WO CON, 04/01/2022, 4:58 FINDINGS: Image quality: Excellent. CSF Spaces: Basal cisterns are patent. No extra-axial fluid collections. Ventricles are normal in size and shape. Brain: No intracranial masses or hemorrhage. Sibley/white matter interface is normal. Brainstem appears normal. Diffusion-weighted images demonstrate no acute infarct. Normal intravascular flow voids are present. Advanced white matter confluent hyperintensity noted predominantly in the deep white matter also involving the brando Skull and face: Calvarium has normal marrow signal. Orbits appear normal. Sinuses: Fluid in the right mastoid noted IMPRESSION: Atrophy and advanced white matter hyperintensity, most likely reflecting chronic ischemic change. No acute infarct, hemorrhage or mass lesion. Approved by: Arthur Cruz M.D. on 04/01/2022 at 7:42
--- NOTE | 2022-04-01 00:04 | DI.RAD.S_ITS ---
PROCEDURE: XR CHEST 1V INDICATIONS: suspected sepsis TECHNIQUE: One view of the chest was acquired. COMPARISON: [facility], CT, CT KIDNEY URETER BLADDER (KUB), 02/27/2022, 19:59. [facility], CR, XR CHEST 1V, 03/20/2022, 0:11. [facility], CR, XR CHEST 1V, 03/20/2022, 14:30. FINDINGS: Surgical changes and devices: Cervical spine postoperative hardware and left proximal humeral hardware can be seen. Right upper quadrant clips are seen. Lungs and pleura: Bilateral perihilar interstitial type infiltrates are seen. No large pneumothorax or large pleural effusions are seen. Mediastinum: Mediastinal contours appear normal. Heart size is at the upper limits of normal. Bones and chest wall: No suspicious bony lesions. Age-appropriate bony degenerative changes are seen. Overlying soft tissues appear unremarkable. IMPRESSION: Bilateral interstitial type infiltrates can be seen within the perihilar regions, which is clearly worse than on the 03/20/2022 examination. Please consider fluid overload/CHF. The heart size is at the upper limits of normal. No almaz consolidated infiltrates are seen. Postoperative and degenerative changes are seen, including liver transplant. Dictated by: Mitchell Hernandez M.D. on 03/31/2022 at 23:51 Approved by: Mitchell Hernandez M.D. on 03/31/2022 at 23:53
[2022-04-01 00:13] LABS: COVID19 -Nasal RAPID Negative (Negative)
[2022-04-01 00:23] LABS: Add Manual Diff / Slide Review NO; Basophils Absolute Auto 100 /uL (0-100); Basophils Percent Auto 0.9 % (0-2); Eosinophils Absolute Auto 200 /uL (0-450); Eosinophils Percent Auto 2.2 % (2-4); Hematocrit 21.2 % (41-53); Lymphocytes Absolute Auto 3900 /uL (1100-4500); Lymphocytes Percent Auto 39.4 % (25-40); Mean Corpuscular HGB Conc 32.1 % (30-36); Mean Corpuscular Hemoglobin 31.6 PG (26-34); Mean Corpuscular Volume 98.4 fL (80-100); Monocytes Absolute Auto 700 /uL (0-900); Monocytes Percent Auto 6.6 % (3-14); Neutrophils Absolute Auto 5100 /uL (1500-7000); Neutrophils Percent Auto 50.9 % (50-75); Platelet Count 131 X10^3/uL (150-400); Red Blood Cell Count 2.16 X10^6/uL (4.5-5.9); Red Cell Distribution Width 20.7 % (11.6-14.8); White Blood Cell Count 9.9 X10^3/uL (4.5-11.0)
[2022-04-01 00:27] LABS: Hemoglobin 6.8 g/dL (13.5-17.5)
--- NOTE | 2022-04-01 00:43 | ED.SEPSIS ---
HPI - Sepsis General Chief Complaint: Shortness of Breath/Dyspnea Mode of arrival: Wheelchair Source: patient Evaluation Sepsis Screen: Possible Sepsis Risk Sepsis Infection Criteria Present: Suspected New Infection Narrative: This gentleman arrives by ambulance. He is 56 years old. He has chronic kidney disease, alcoholic liver disease, hypertension and chronic back pain. He comes to the emergency department today with fever nausea vomiting back pain now for a couple of days. He has no dysuria. He was too weak to bring himself to the emergency department today. He does endorse some chest pain. He has not had a cough. He is currently living in a hotel. He has been drinking today. Review of Systems Review of Systems Narrative: Complete review of systems is negative other than as noted above. Patient History Medical History Cirrhosis of liver CKD (chronic kidney disease) Compression fracture Depression Former smoker GERD (gastroesophageal reflux disease) Gout Hepatitis C (~2011) History of vertebral compression fracture Hypertension Immunosuppression Liver cancer Medical marijuana use GUILLE (obstructive sleep apnea) Osteoporosis PAC (premature atrial contraction) Pain management contract agreement Paroxysmal atrial fibrillation PVC (premature ventricular contraction) Thrombocytopenia Surgical History H/O right wrist surgery History of biliary duct stent placement (01/2013) History of open reduction and internal fixation (ORIF) procedure (09/22/20) History of removal of retained hardware (01/25/21) History of right hip replacement Hx of appendectomy (~1979) Hx of cholecystectomy (~2003) Hx of elbow surgery (~2003) Hx of elbow surgery (~2007) Hx of fusion of cervical spine Hx of hernia repair Hx of shoulder surgery (~2012) Hx of tonsillectomy (~1969) Liver transplant recipient (11/24/11) Presence of left artificial elbow joint Family History Mother Renal failure Father Diabetes mellitus Congestive heart failure Social History household members: none Smoking Status: Former smoker alcohol intake: current Smoking Status: Former smoker tobacco type: cigarettes alcohol intake frequency: a few times a month Alcohol type: hard liquor Substance Use Type: marijuana Exam Narrative Exam Narrative: GENERAL: Alert, cooperative and in mild distress. He is pale and ill-appearing HEAD: Atraumatic. Normocephalic. EYES: Sclera are clear without icterus. Extraocular movements are full. ENT: No rhinorrhea. Oropharynx is moist. Mouth exam is benign. NECK: Supple. Full range of motion. CARDIOVASCULAR: Normal rate and rhythm without murmur gallop or rub. RESPIRATORY: Clear to auscultation. Breath sounds equal bilaterally. No wheezes, rales, or rhonchi. GASTROINTESTINAL: Abdomen soft, non-tender, nondistended. Rectal examination is unremarkable. Light yellow stool. Guaiac negative. EXTREMITIES: No edema, full range of motion. No obvious trauma. Lower extremity edema. BACK: Significant pain with palpation in his back. NEURO: Nonfocal examination, normal speech, normal gait. SKIN: No rash or erythema of visible areas PSYCH: Normally oriented. Normal range of affect. Appropriate behavior . Initial Vital Signs Initial Vital Signs: Vital Signs Pulse Rate 98 H 03/31/22 23:52 Respiratory Rate 37 H 03/31/22 23:52 Pulse Oximetry 96 03/31/22 23:52 Course Orders Ordered: ED Orders 03/31/22 23:50 COVID19 -Nasal RAPID/Pre-Proc Stat 04/01/22 00:00 Complete Blood Count AUTO DIFF Stat Comprehensive Metabolic Panel Stat Lactate (Lactic Acid) Stat Lipase Stat Procalcitonin Stat 04/01/22 00:01 Consult to RN PEDIATRIC - Automation Test Developer Stat EKG-12 Lead Stat 04/01/22 00:04 XR chest 1V Stat RT Consult Eval and Treat NOW 04/01/22 00:30 Blood Culture Stat PRBC [Packed Cells] Stat Type and Screen Stat 04/01/22 01:39 Blood Culture Stat Ondansetron HCl (Ondansetron 4 Mg/2 Ml Inj) 4 mg IV Q2HR PRN PRN Reason: Nausea And Vomiting Last Admin: 04/01/22 00:59 Dose: 4 mg Documented By: CARLOS Discontinued Medications Acetaminophen (Acetaminophen 325 Mg Tablet) 975 mg PO NOW ONE Stop: 04/01/22 00:42 Last Admin: 04/01/22 00:57 Dose: 975 mg Documented By: CARLOS Fentanyl (Fentanyl 100 Mcg/2 Ml Inj) 50 mcg IV NOW ONE Stop: 04/01/22 00:42 Last Admin: 04/01/22 00:59 Dose: 50 mcg Documented By: CARLOS Furosemide (Furosemide 40 Mg/4 Ml Vial) 40 mg IV NOW ONE Stop: 04/01/22 01:28 Sodium Chloride (Normal Saline 0.9%) 1,000 mls @ 1,000 mls/hr IV BOLUS ONE Stop: 04/01/22 01:02 Last Admin: 04/01/22 00:59 Dose: 1,000 mls/hr Documented By: CARLOS Sodium Chloride (Normal Saline 0.9%) 1,000 mls @ 1,000 mls/hr IV BOLUS ONE Stop: 04/01/22 01:40 Ceftriaxone Sodium 2,000 mg/ (Sodium Chloride) 100 mls @ 200 mls/hr IV NOW ONE Stop: 04/01/22 01:40 Azithromycin 500 mg/ Dextrose 250 mls @ 250 mls/hr IV NOW ONE Stop: 04/01/22 01:40 Nitroglycerin (Nitroglycerin Oint 1 Inch/Gm Oint...G.) 0.5 inch TOP NOW ONE Stop: 04/01/22 01:29 Reevaluation(s) Reevaluation #1: He is very pale. With medications given he feels a little bit better. Will order 2 units of packed red cells because of his severe anemia. He is not actively bleeding. Because of the very high blood pressure and chest x-ray looking like CHF, will administer topical nitrates and IV Lasix. Will admit to the hospitalist service. Empiric pneumonia antibiotics as well. Vital Signs Vital signs: Vital Signs - 8 hr 03/31/22 23:53 03/31/22 23:52 04/01/22 00:00 Temperature 100.3 F H Pulse Rate 94 H 98 H 94 H Respiratory Rate 22 37 H 22 Blood Pressure 213/113 H Pulse Oximetry 96 96 96 Oxygen Delivery Method Room Air 04/01/22 00:30 04/01/22 00:56 04/01/22 00:56 Temperature Pulse Rate 91 H 92 H Respiratory Rate 19 20 Blood Pressure 195/104 H Pulse Oximetry 96 Oxygen Delivery Method 04/01/22 01:00 Temperature Pulse Rate 91 H Respiratory Rate 22 Blood Pressure Pulse Oximetry 97 Oxygen Delivery Method Sepsis Guideline Criteria Level 1 - Infection Sepsis Infection Criteria Present: Suspected New Infection Treatment Initiated Antibiotics:: IV antimicrobials will be initiated as soon as possible after recognition of sepsis state and within one hour for both sepsis and septic shock. MDM - Sepsis Lab Data Result diagrams: 04/01/22 00:00 04/01/22 00:00 Labs: Lab Results 03/31/22 04/01/22 04/01/22 Range/Units 23:50 00:00 00:00 WBC 9.9 (4.5-11.0) X10^3/uL RBC 2.16 L (4.5-5.9) X10^6/uL Hgb 6.8 L* (13.5-17.5) g/dL Hct 21.2 L (41-53) % MCV 98.4 (80-100) fL MCH 31.6 (26-34) PG MCHC 32.1 (30-36) % RDW 20.7 H (11.6-14.8) % Plt Count 131 L (150-400) X10^3/uL Neut % (Auto) 50.9 (50-75) % Lymph % (Auto) 39.4 (25-40) % Lucas % (Auto) 6.6 (3-14) % Eos % (Auto) 2.2 (2-4) % Baso % (Auto) 0.9 (0-2) % Neut # (Auto) 5100 (1550-5232) /uL Lymph # (Auto) 3900 (2199-0577) /uL Lucas # (Auto) 700 (0-900) /uL Eos # (Auto) 200 (0-450) /uL Baso # (Auto) 100 (0-100) /uL RBC Morphology See below Hypochromasia 1+ H Anisocytosis 2+ H Ovalocytes 1+ H Sodium 139 (137-145) mmol/L Potassium 4.6 (3.4-5.1) mmol/L Chloride 110 H (98-107) mmol/L Carbon Dioxide 18 L (22-32) mmol/L BUN 76 H (9-20) mg/dL Creatinine 5.12 H (0.66-1.25) mg/dL Estimated GFR 12 L (>60) mL/min BUN/Creatinine Ratio 14.8 (6-22) Glucose 103 H (70-100) mg/dL Lactate (0.7-2.1) mmol/L Calcium 8.1 L (8.4-10.2) mg/dL Total Bilirubin 1.0 (0.2-1.3) mg/dL AST 31 (17-59) IU/L ALT 10 (<50) IU/L Alkaline Phosphatase 168 H (38-126) U/L Total Protein 5.6 L (6.3-8.2) g/dL Albumin 2.5 L (3.5-5.0) g/dL Globulin 3.1 (1.7-4.1) g/dL Albumin/Globulin Ratio 0.8 L (1.0-2.8) Lipase 54 (23-300) U/L Procalcitonin 0.14 (<0.5) ng/mL SARS-CoV-2 (PCR) Negative (Negative) Blood Type Antibody Screen Crossmatch 04/01/22 04/01/22 Range/Units 00:00 00:30 WBC (4.5-11.0) X10^3/uL RBC (4.5-5.9) X10^6/uL Hgb (13.5-17.5) g/dL Hct (41-53) % MCV (80-100) fL MCH (26-34) PG MCHC (30-36) % RDW (11.6-14.8) % Plt Count (150-400) X10^3/uL Neut % (Auto) (50-75) % Lymph % (Auto) (25-40) % Lucas % (Auto) (3-14) % Eos % (Auto) (2-4) % Baso % (Auto) (0-2) % Neut # (Auto) (7865-6385) /uL Lymph # (Auto) (6698-9433) /uL Lucas # (Auto) (0-900) /uL Eos # (Auto) (0-450) /uL Baso # (Auto) (0-100) /uL RBC Morphology Hypochromasia Anisocytosis Ovalocytes Sodium (137-145) mmol/L Potassium (3.4-5.1) mmol/L Chloride (98-107) mmol/L Carbon Dioxide (22-32) mmol/L BUN (9-20) mg/dL Creatinine (0.66-1.25) mg/dL Estimated GFR (>60) mL/min BUN/Creatinine Ratio (6-22) Glucose (70-100) mg/dL Lactate 1.7 (0.7-2.1) mmol/L Calcium (8.4-10.2) mg/dL Total Bilirubin (0.2-1.3) mg/dL AST (17-59) IU/L ALT (<50) IU/L Alkaline Phosphatase (38-126) U/L Total Protein (6.3-8.2) g/dL Albumin (3.5-5.0) g/dL Globulin (1.7-4.1) g/dL Albumin/Globulin Ratio (1.0-2.8) Lipase (23-300) U/L Procalcitonin (<0.5) ng/mL SARS-CoV-2 (PCR) (Negative) Blood Type A Positive Antibody Screen Negative Crossmatch See Detail Imaging Data Chest x-ray: Radiologist's Impression: IMPRESSION:? Bilateral interstitial type infiltrates can be seen within the perihilar regions, which is clearly worse than on the 03/20/2022 examination.? Please consider fluid overload/CHF. ? The heart size is at the upper limits of normal. ? No almaz consolidated infiltrates are seen. ? Postoperative and degenerative changes are seen, including liver transplant.? ? Dictated by: Mitchell Hernandez M.D. on 03/31/2022 at 23:51 ? ? Approved by: Mitchell Hernandez M.D. on 03/31/2022 at 23:53 ? Discharge Plan Departure Patient Disposition: Admitted As Inpatient Clinical Impression: Acute exacerbation of CHF (congestive heart failure), Cirrhosis of liver, CKD (chronic kidney disease), Hypertension, Pneumonia
[2022-04-01 00:49] LABS: Alanine Aminotransferase 10 IU/L (<50); Albumin 2.5 g/dL (3.5-5.0); Albumin Globulin Ratio 0.8 (1.0-2.8); Alkaline Phosphatase 168 U/L (38-126); Aspartate Aminotransferase 31 IU/L (17-59); BUN Creatinine Ratio 14.8 (6-22); Blood Urea Nitrogen 76 mg/dL (9-20); Calcium 8.1 mg/dL (8.4-10.2); Carbon Dioxide 18 mmol/L (22-32); Chloride 110 mmol/L (98-107); Estimated Glomerular Filt Rate 12 mL/min (>60); Globulin 3.1 g/dL (1.7-4.1); Glucose 103 mg/dL (70-100); HEMOLYSIS 16 (0-50); Lactate (Lactic Acid) 1.7 mmol/L (0.7-2.1); Lipase 54 U/L (23-300); Potassium 4.6 mmol/L (3.4-5.1); Sodium 139 mmol/L (137-145); Total Protein 5.6 g/dL (6.3-8.2)
[2022-04-01 00:56] LABS: Anisocytosis 2+; Hypochromasia 1+; Ovalocytes 1+
[2022-04-01] MEDS: ACETAMINOPHEN 325 MG TABLET 975 MG PO (00:57)
[2022-04-01] MEDS: fentaNYL 100 MCG/2 ML INJ 50 MCG IV (00:59)
[2022-04-01] MEDS: SODIUM CHLORIDE 0.9% 1,000 ML 1000 ML IV ×2 (00:59→03:43)
[2022-04-01] MEDS: ONDANSETRON 4 MG/2 ML INJ IV (00:59)
[2022-04-01 01:06] LABS: Procalcitonin 0.14 ng/mL (<0.5)
[2022-04-01 01:52] LABS: INR 1.1 (0.9-1.3); Prothrombin Time 12.1 SECONDS (10.1-12.7)
[2022-04-01 01:54] LABS: Ethanol (ETOH) 33 mg/dL
[2022-04-01 02:16] LABS: Troponin I 0.083 ng/mL (0.01-0.034)
[2022-04-01] MEDS: NITROGLYCERIN OINT 1 INCH/GM OINT...G. 0.5 INCH TOP (02:50)
[2022-04-01] MEDS: FUROSEMIDE 40 MG/4 ML VIAL IV ×2 (02:50→20:25)
[2022-04-01 02:51] LABS: NT-proBNP (BNP-Adult 18+) 43300 pg/mL (<125)
[2022-04-01 03:05] LABS: Magnesium 1.8 mg/dL (1.6-2.3)
[2022-04-01 03:13] LABS: Phosphorous 4.7 mg/dL (2.5-4.5)
[2022-04-01 03:14] LABS: Ammonia (NH3) 39 umol/L (9-30)
[2022-04-01 03:27] LABS: Troponin I 0.088 ng/mL (0.01-0.034)
[2022-04-01] MEDS: HYDROMORPHONE 4 MG TABLET 8 MG PO (03:33)
--- NOTE | 2022-04-01 03:39 | DI.CT.S_ITS ---
PROCEDURE: CT HEAD/BRAIN WO CON INDICATIONS: stroke TECHNIQUE: Noncontrast 4.5 mm thick angled axial sections acquired from the foramen magnum to the vertex, with coronal and sagittal reformats. For radiation dose reduction, the following was used: automated exposure control, adjustment of mA and/or kV according to patient size. COMPARISON: [facility], CT, CT HEAD/BRAIN WO CON, 03/20/2022, 14:25. FINDINGS: Image quality: Excellent. CSF spaces: Basal cisterns are patent. No extra-axial fluid collections. Ventricles are normal in size and shape. Brain: No midline shift. No intracranial masses or hemorrhage. Sibley-white matter interface is normal. Moderate cerebral and cerebellar volume loss with multifocal white matter chronic ischemic change noted. Atherosclerotic calcification noted associated with cavernous segments of both internal carotid arteries. Skull and face: Calvarium and visualized facial bones are intact, without suspicious lesions. Sinuses: Visualized sinuses and mastoids are clear. IMPRESSION: Atrophy and chronic ischemic change without acute hemorrhage or mass effect Note: Final report is concordant with preliminary interpretation by [email or web address] Approved by: Arthur Cruz M.D. on 04/01/2022 at 6:47
[2022-04-01] MEDS: cefTRIAXone 2,000 MG in SODIUM CHLORIDE 0.9% 100 ML 200 MG IV (03:43)
[2022-04-01] MEDS: AZITHROMYCIN 500 MG in DEXTROSE 5% IN WATER 250 ML 250 MG IV (04:27)
[2022-04-01 04:40] LABS: Appearance Urine UA CLEAR; Bilirubin Urine UA NEGATIVE (NEGATIVE); Color Urine UA YELLOW; Glucose Urine UA NEGATIVE (Negative); Ketones Urine UA NEGATIVE (NEGATIVE); Leukocyte Esterase Urine UA NEGATIVE (NEGATIVE); Nitrite Urine UA NEGATIVE (Negative); Occult Blood Urine UA 3+ (Negative); Protein Urine UA 3+ (Negative); Specific Gravity Urine UA 1.015 (1.000-1.035); Urobilinogen Urine UA 0.2 E.U./dL (0.2)
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
[2022-04-01 04:50] LABS: Bacteria Urine Occasional (0-1); RBC Urine 30-100/HPF (0-5/HPF); Squamous Epithelial Cell Urine 0-1 /HPF (0-5/HPF); WBC Urine 0-1/HPF (0-5/HPF)
[2022-04-01 04:51] LABS: Culture Indicated Urine Cult Not Indicated
[2022-04-01] MEDS: LABETALOL 20 MG/4 ML SYRINGE 5 MG IV (06:32)
[2022-04-01 06:35] LABS: INR 1.1 (0.9-1.3); Prothrombin Time 12.1 SECONDS (10.1-12.7)
[2022-04-01 06:42] LABS: Hematocrit 23.9 % (41-53); Hemoglobin 7.8 g/dL (13.5-17.5); Mean Corpuscular HGB Conc 32.4 % (30-36); Mean Corpuscular Hemoglobin 31.6 PG (26-34); Mean Corpuscular Volume 97.4 fL (80-100); Platelet Count 128 X10^3/uL (150-400); Red Blood Cell Count 2.46 X10^6/uL (4.5-5.9); Red Cell Distribution Width 20.4 % (11.6-14.8); White Blood Cell Count 15.8 X10^3/uL (4.5-11.0)
--- NOTE | 2022-04-01 06:42 | RT ---
Spoke with patient around 0330, on Ra at time for SPO2 of 96%, awake in no respiratory distress only asking for pain medication. States he has a home CPAP and can reach someone in the morning to have them bring it in for him. Seen again on floor at 0625 after being medicated, breathing 10-12 with some snoring but no obstructing. Maintaining SPO2 of 94-96% on 2 lNC. Spoke with RN regarding questioning patient's ability to remove mask at this time due to sedation from narcotic pain meds. RN will continue to watch patient and notifiy RT of any changes. Will reevaluate again.
[2022-04-01 06:43] LABS: Add Manual Diff / Slide Review YES
[2022-04-01 06:47] LABS: Alanine Aminotransferase 14 IU/L (<50); Albumin 2.6 g/dL (3.5-5.0); Albumin Globulin Ratio 0.8 (1.0-2.8); Alkaline Phosphatase 190 U/L (38-126); Aspartate Aminotransferase 31 IU/L (17-59); BUN Creatinine Ratio 14.4 (6-22); Bilirubin Total 1.3 mg/dL (0.2-1.3); Bilirubin Unconjugated 0.5 mg/dL (0.0-1.1); Blood Urea Nitrogen 73 mg/dL (9-20); Carbon Dioxide 22 mmol/L (22-32); Chloride 109 mmol/L (98-107); Estimated Glomerular Filt Rate 12 mL/min (>60); Globulin 3.2 g/dL (1.7-4.1); Glucose 140 mg/dL (70-100); HEMOLYSIS < 15 (0-50); Magnesium 1.8 mg/dL (1.6-2.3); Potassium 4.9 mmol/L (3.4-5.1); Sodium 139 mmol/L (137-145); Total Protein 5.8 g/dL (6.3-8.2)
[2022-04-01] MEDS: NALOXONE 0.4 MG/ML VIAL IV ×2 (06:48→08:51)
--- NOTE | 2022-04-01 07:12 | PC.NURSE ---
Shift note: Patient brought in from ED, very lethargic but arousable, with ongoin blood transfusion, hypertensive SBP 170s, O2 sat 89-90% at room air. Patient does follow commands but very lethargic, responds to questions appropriately. O2 support by nasal cannula at 4lpm applied, O2 sat goes up to >95%. Breath sounds diminished with wheezes bilaterally with fine crackles at the base. Active bowel tones. Patient informed the need for urinary catheterization but strongly refused, provider made aware. At 0600, blood transfusion completed, H&H was drawn and awaiting result, result needs to be relayed to provider to determine whether another unit is needed to be transfused. 0630, SBP 190s with sustaining HR 130s-150s, MARIA ALEJANDRA Ponce notified and stat dose of labetalol was ordered and given, HR slightly dropped to 120s, patient became very lethargic and hard to arouse, MARIA ALEJANDRA Ponce ordered stat dose of narcan and given, patient started to wake up and cough out secretions. Will continue to monitor.
[2022-04-01 07:37] LABS: Neutrophils Absolute Manual 7110 /uL (3000-5900); Total Cells Counted 100
[2022-04-01 07:38] LABS: RBC Morphology Normal Morphology
[2022-04-01] MEDS: FUROSEMIDE 20 MG/2 ML VIAL IV (08:32)
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
[2022-04-01] MEDS: PANTOPRAZOLE 40 MG VIAL IV ×2 (14:26→20:25)
[2022-04-01] MEDS: LACTULOSE 20 GM/30 ML SOLUTION 30 GM PO ×2 (14:26→20:25)
[2022-04-01 15:11] LABS: BUN Creatinine Ratio 15.4 (6-22); Blood Urea Nitrogen 77 mg/dL (9-20); Calcium 8.3 mg/dL (8.4-10.2); Carbon Dioxide 20 mmol/L (22-32); Chloride 109 mmol/L (98-107); Estimated Glomerular Filt Rate 13 mL/min (>60); Glucose 115 mg/dL (70-100); HEMOLYSIS 31 (0-50); Potassium 5.3 mmol/L (3.4-5.1); Sodium 139 mmol/L (137-145)
[2022-04-01 15:23] LABS: Troponin I 0.061 ng/mL (0.01-0.034)
--- NOTE | 2022-04-01 17:12 | PC.NURSE ---
nurse at bedside, patient moaning out c/o chest pain and its hard to breath. VS obtained, Dr. Austin in room. 2L NC initiated. CIWA score obtained; 8. No treatment ordered, provider is aware of this. Nitro patch on left chest removed per providers verbal orders. 99% on 2L.
[2022-04-01] MEDS: HYDROMORPHONE 0.5 MG INJ 0.7 MG IV ×2 (17:48→21:52)
[2022-04-01] MEDS: MYCOPHENOLATE MOFETIL 500 MG TABLET PO (20:25)
[2022-04-01] MEDS: CYCLOSPORINE, MODIFIED 25 MG CAPSULE PO (20:25)
[2022-04-01] MEDS: METOPROLOL IR 25 MG TABLET PO (20:51)
[2022-04-02] VITALS (10 sets, daily range): BP systolic 145–194; BP diastolic 84–113; PULSE 68–101; RESP 12–20; TEMP 36.6–36.9; O2SAT 96–98
[2022-04-02] MEDS: cefTRIAXone 1,000 MG in SODIUM CHLORIDE 0.9% 100 ML 200 MG IV (01:15)
[2022-04-02] MEDS: HYDROMORPHONE 0.5 MG INJ 0.7 MG IV (02:42)
--- NOTE | 2022-04-02 03:09 | PC.NURSE ---
Pt laying in bed, moaning and states he has difficulty taking a deep breath. Pt with expiratory wheeze-O2 sat 98% on 2L via NC. Displaced both IV to Upper arms with scratching-new 22g IV placed to TANJA-abx infused-IV is working well. Pt states he feels that the pain in his chest is coming from his chronic back issues. Provided pain meds, repositioned in bed, bed alarm on. Contacted RT to eval for breathing tx. RT states they will place him on a CPAP to assist with his breathing-Pt is agreeable.
[2022-04-02 05:51] LABS: Add Manual Diff / Slide Review NO; Basophils Absolute Auto 100 /uL (0-100); Basophils Percent Auto 0.8 % (0-2); Eosinophils Absolute Auto 200 /uL (0-450); Eosinophils Percent Auto 2.2 % (2-4); Hematocrit 23.6 % (41-53); Hemoglobin 7.6 g/dL (13.5-17.5); Lymphocytes Absolute Auto 2600 /uL (1100-4500); Lymphocytes Percent Auto 27.5 % (25-40); Mean Corpuscular HGB Conc 32.1 % (30-36); Mean Corpuscular Hemoglobin 31.4 PG (26-34); Monocytes Absolute Auto 900 /uL (0-900); Monocytes Percent Auto 9.2 % (3-14); Neutrophils Absolute Auto 5700 /uL (1500-7000); Neutrophils Percent Auto 60.3 % (50-75); Platelet Count 130 X10^3/uL (150-400); Red Blood Cell Count 2.41 X10^6/uL (4.5-5.9); White Blood Cell Count 9.4 X10^3/uL (4.5-11.0)
[2022-04-02 06:00] LABS: Prothrombin Time 11.4 SECONDS (10.1-12.7)
[2022-04-02 06:09] LABS: Alanine Aminotransferase 14 IU/L (<50); Albumin 2.4 g/dL (3.5-5.0); Albumin Globulin Ratio 0.8 (1.0-2.8); Alkaline Phosphatase 186 U/L (38-126); Aspartate Aminotransferase 32 IU/L (17-59); BUN Creatinine Ratio 14.5 (6-22); Bilirubin Unconjugated 0.4 mg/dL (0.0-1.1); Blood Urea Nitrogen 75 mg/dL (9-20); Calcium 8.4 mg/dL (8.4-10.2); Carbon Dioxide 22 mmol/L (22-32); Chloride 110 mmol/L (98-107); Estimated Glomerular Filt Rate 12 mL/min (>60); Globulin 3.2 g/dL (1.7-4.1); Glucose 125 mg/dL (70-100); HEMOLYSIS < 15 (0-50); Potassium 4.7 mmol/L (3.4-5.1); Sodium 138 mmol/L (137-145); Total Protein 5.6 g/dL (6.3-8.2)
[2022-04-02 06:23] LABS: Anisocytosis 2+; Hypochromasia 1+; Target Cells 1+
[2022-04-02 06:24] LABS: Poikilocytosis 1+
[2022-04-02] MEDS: LACTULOSE 20 GM/30 ML SOLUTION 30 GM PO (09:26)
[2022-04-02] MEDS: PANTOPRAZOLE 40 MG VIAL IV ×2 (09:26→21:30)
[2022-04-02] MEDS: LOSARTAN 25 MG TABLET PO (09:27)
[2022-04-02] MEDS: THIAMINE 100 MG TABLET PO (09:27)
[2022-04-02] MEDS: FOLIC ACID 1 MG TABLET PO (09:28)
[2022-04-02] MEDS: MYCOPHENOLATE MOFETIL 500 MG TABLET PO ×2 (09:28→21:28)
[2022-04-02] MEDS: METOPROLOL IR 25 MG TABLET PO ×2 (09:28→21:28)
[2022-04-02] MEDS: CYCLOSPORINE, MODIFIED 25 MG CAPSULE PO ×2 (09:28→21:30)
[2022-04-02] MEDS: MULTIVITAMIN 1 TABLET 1 TAB PO (09:28)
[2022-04-02] MEDS: FUROSEMIDE 40 MG/4 ML VIAL IV ×2 (09:43→16:53)
[2022-04-02] MEDS: LORazepam 1 MG TABLET PO ×3 (13:35→23:26)
--- NOTE | 2022-04-02 14:34 | CM.DPC ---
DCP Cont: SW attempted to meet bedside with pt and he would wake briefly and answer questions briefly and then dose by off to sleep. RN was also bedside and confirmed that pt not yet safe to attempt OOB or ambulation at this time and PT not yet appropriate. Pt was able to confirm that prior to admission and while he has been staying in the motel he has been ambulating independently with a walker. Plan: SW to follow tomorrow Mon with calling pt's HCS Rachel and [facility] Walter towards determining how close pt is to LTC at [facility] or [facility] and then eventual PT eval to determine needs. Katy Pyle MSW
[2022-04-02] MEDS: HYDROMORPHONE 2 MG TABLET PO ×2 (14:37→21:29)
--- NOTE | 2022-04-02 16:00 | PM.PN.1 ---
Subjective Subjective Date Patient Seen: 04/02/22 Interval history: Patient continues to wax and wane today. He is occasionally alert, awake and complaining of back pain. Other times he is quite somnolent. Exam Vital Signs (past 8 hours): - 04/02/22 09:27 04/02/22 10:24 04/02/22 11:25 Temperature 98.0 F Pulse Rate 78 79 Respiratory Rate 18 Blood Pressure 170/95 H 187/102 H Pulse Oximetry 97 Oxygen Delivery Method Nasal Cannula Oxygen Flow Rate 0 04/02/22 14:30 04/02/22 14:42 Temperature 97.8 F Pulse Rate 69 68 Respiratory Rate 12 12 Blood Pressure 170/113 H 170/113 H Pulse Oximetry 96 Oxygen Delivery Method Oxygen Flow Rate 2 Oxygen Delivery Method Nasal Cannula Oxygen Flow Rate 2 Narrative Exam Narrative: Gen: no acute distress, awake, mildly tremulous but then shortly after he is somnolent, smells of fetor hepaticus HEENT: MMM, PERRL Neck: supple, trachea midline CV: RRR no m/r/g Pulm: bibasilar crackles, no wheezing, poor effort Abd: Soft, NT ND Ext: bilateral edema in LE, no joint effusions Objective Labs Result Diagrams: 04/02/22 05:21 04/02/22 05:21 Labs: Laboratory Results - last 24 hr 04/02/22 04/02/22 04/02/22 05:21 05:21 05:21 WBC 9.4 RBC 2.41 L Hgb 7.6 L Hct 23.6 L MCV 98.0 MCH 31.4 MCHC 32.1 RDW 21.0 H Plt Count 130 L Neut % (Auto) 60.3 Lymph % (Auto) 27.5 [place] % (Auto) 9.2 Eos % (Auto) 2.2 Baso % (Auto) 0.8 Neut # (Auto) 5700 Lymph # (Auto) 2600 [place] # (Auto) 900 Eos # (Auto) 200 Baso # (Auto) 100 RBC Morphology See below Hypochromasia 1+ H Poikilocytosis 1+ H Anisocytosis 2+ H Target Cells 1+ H PT 11.4 INR 1.0 Sodium 138 Potassium 4.7 Chloride 110 H Carbon Dioxide 22 BUN 75 H Creatinine 5.19 H Estimated GFR 12 L BUN/Creatinine Ratio 14.5 Glucose 125 H Calcium 8.4 Total Bilirubin 1.0 Conjugated Bilirubin 0.0 Unconjugated Bilirubin 0.4 AST 32 ALT 14 Alkaline Phosphatase 186 H Total Protein 5.6 L Albumin 2.4 L Globulin 3.2 Albumin/Globulin Ratio 0.8 L PFSH Medical History Anemia of chronic renal failure, stage 5 Cirrhosis of liver CKD (chronic kidney disease) Compression fracture Depression Former smoker GERD (gastroesophageal reflux disease) Gout Hepatitis C (~2011) History of vertebral compression fracture Hypertension Immunosuppression Liver cancer Medical marijuana use GUILLE (obstructive sleep apnea) Osteoporosis PAC (premature atrial contraction) Pain management contract agreement Paroxysmal atrial fibrillation PVC (premature ventricular contraction) Thrombocytopenia Surgical History H/O right wrist surgery History of biliary duct stent placement (01/2013) History of open reduction and internal fixation (ORIF) procedure (09/22/20) History of removal of retained hardware (01/25/21) History of right hip replacement Hx of appendectomy (~1979) Hx of cholecystectomy (~2003) Hx of elbow surgery (~2003) Hx of elbow surgery (~2007) Hx of fusion of cervical spine Hx of hernia repair Hx of shoulder surgery (~2012) Hx of tonsillectomy (~1969) Liver transplant recipient (11/24/11) Presence of left artificial elbow joint Family History Mother Renal failure Father Diabetes mellitus Congestive heart failure Social History household members: friend(s) Smoking Status: Former smoker alcohol intake: current Assessment & Plan Assessment & Plan narrative: Severe anemia likely due to anemia of chronic disease, present on admission s/p 1 U PRBC for hg of 6.6 with appropriate response. Patient's last normal hemoglobin was in June 2021 when it was 13.9 and has slowly been trending down, and has been in the 7s since January of this year Patient has had a history of esophageal varices due to drinking in the past continue PPI IV BID, consider surgical consultation for endoscopy though no evidence thus far of active bleeding. chronic stage IV-V chronic kidney injury, present on admission Creatinine has been stable around 5 today, likely represents his new baseline. Acute on chronic diastolic [place] [address] continue furosemide 40 mg IV BID, monitoring creatinine closely. Has Bradley, strict Is and Os 1000 ml fluid restriction last echo was on February 01 of this year, he has a hyperdynamic left ventricle with ventricular hypertrophy and at that time his EF was 70 plus or minus 5% and an increase in the severity of mitral regurgitation over prior. 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 - patient's mental status much diminished after 8 mg of PO dilaudid given in the ER. Improved with some narcan afterwards but then with severe pain. - continue some opiate pain medications, slowly increased given chronic pain. - elevated ammonia on admission, likely a component of hepatic encephalopathy as well - continue rifaximin and lactulose. History of liver transplant, chronic continue home medications. Chronic back pain w/chronic continuous opioid dependence - continue to slowly increase pain medications given encephalopathy on admission. Dispo: remains inpatient, disposition not entirely clear at this time but suspect home in the next few days. Code status: Full code as discussed with the patient who identifies his sister as his surrogate and POA. [X] I have utilized all available immediate resources to obtain, update, or review of the patient's current medications COVID-19 COVID-19 status: Negative Result date/Date tested (Pos, Neg/Pending): 03/31/22 Time Spent With Patient Critical Care time: I spent a total of [] minutes of critical care time on this patient's care today; this time is exclusive of procedural time. Quality VTE Deep Vein Thrombosis/Pulmonary Embolism Present on Admission: No
[2022-04-02] MEDS: RIFAXIMIN 550 MG TABLET PO (21:29)
[2022-04-02] MEDS: ACETAMINOPHEN 325 MG TABLET 650 MG PO (23:25)
[2022-04-03] VITALS (17 sets, daily range): BP systolic 171–209; BP diastolic 92–118; PULSE 72–93; RESP 8–18; TEMP 36.4–37.2; O2SAT 95–99
[2022-04-03] MEDS: HYDROMORPHONE 2 MG TABLET PO ×2 (00:32→03:17)
[2022-04-03] MEDS: cefTRIAXone 1,000 MG in SODIUM CHLORIDE 0.9% 100 ML 200 MG IV (00:33)
[2022-04-03 05:35] LABS: Add Manual Diff / Slide Review NO; Basophils Absolute Auto 100 /uL (0-100); Eosinophils Absolute Auto 300 /uL (0-450); Eosinophils Percent Auto 4.5 % (2-4); Hematocrit 21.9 % (41-53); Hemoglobin 7.1 g/dL (13.5-17.5); Lymphocytes Absolute Auto 2600 /uL (1100-4500); Lymphocytes Percent Auto 36.2 % (25-40); Mean Corpuscular HGB Conc 32.6 % (30-36); Mean Corpuscular Hemoglobin 31.6 PG (26-34); Monocytes Absolute Auto 700 /uL (0-900); Monocytes Percent Auto 9.1 % (3-14); Neutrophils Absolute Auto 3500 /uL (1500-7000); Neutrophils Percent Auto 48.2 % (50-75); Platelet Count 110 X10^3/uL (150-400); Red Blood Cell Count 2.26 X10^6/uL (4.5-5.9); Red Cell Distribution Width 20.2 % (11.6-14.8); White Blood Cell Count 7.2 X10^3/uL (4.5-11.0)
[2022-04-03 05:38] LABS: Prothrombin Time 11.8 SECONDS (10.1-12.7)
[2022-04-03 05:46] LABS: Alanine Aminotransferase 11 IU/L (<50); Albumin 2.2 g/dL (3.5-5.0); Albumin Globulin Ratio 0.8 (1.0-2.8); Alkaline Phosphatase 181 U/L (38-126); Aspartate Aminotransferase 28 IU/L (17-59); BUN Creatinine Ratio 14.5 (6-22); Bilirubin Total 0.7 mg/dL (0.2-1.3); Bilirubin Unconjugated 0.3 mg/dL (0.0-1.1); Blood Urea Nitrogen 78 mg/dL (9-20); Calcium 8.1 mg/dL (8.4-10.2); Carbon Dioxide 22 mmol/L (22-32); Chloride 109 mmol/L (98-107); Estimated Glomerular Filt Rate 12 mL/min (>60); Globulin 2.9 g/dL (1.7-4.1); Glucose 111 mg/dL (70-100); HEMOLYSIS < 15 (0-50); Potassium 4.4 mmol/L (3.4-5.1); Sodium 139 mmol/L (137-145); Total Protein 5.1 g/dL (6.3-8.2)
[2022-04-03 06:06] LABS: Anisocytosis 2+; Hypochromasia 1+; Poikilocytosis 1+
[2022-04-03] MEDS: LORazepam 1 MG TABLET PO ×2 (08:00→12:00)
[2022-04-03] MEDS: LACTULOSE 20 GM/30 ML SOLUTION 30 GM PO (08:08)
[2022-04-03] MEDS: CYCLOSPORINE, MODIFIED 25 MG CAPSULE PO (08:10)
[2022-04-03] MEDS: METOPROLOL IR 25 MG TABLET PO (08:10)
[2022-04-03] MEDS: RIFAXIMIN 550 MG TABLET PO (08:11)
[2022-04-03] MEDS: MULTIVITAMIN 1 TABLET 1 TAB PO (08:11)
[2022-04-03] MEDS: FOLIC ACID 1 MG TABLET PO (08:12)
[2022-04-03] MEDS: THIAMINE 100 MG TABLET PO (08:13)
[2022-04-03] MEDS: MYCOPHENOLATE MOFETIL 500 MG TABLET PO (08:16)
[2022-04-03] MEDS: PANTOPRAZOLE 40 MG VIAL IV (08:17)
[2022-04-03] MEDS: FUROSEMIDE 40 MG/4 ML VIAL IV ×2 (08:19→17:36)
[2022-04-03] MEDS: LOSARTAN 25 MG TABLET PO (08:21)
--- NOTE | 2022-04-03 11:05 | PC.NURSE ---
Addendum entered by Isael Nieto R.N. 04/03/22 18:48: Pt only took 15cc of lactulose and refused the rest of it. Addendum entered by Isael Nieto R.N. 04/03/22 12:20: Pt refusing lunch, waving staff away. Pt given another 1mg ativan PO at 1200 due to increased anxiety, restlessness, and agitation. Rn heard expiratory wheezes and pt said hes having a hard time breathing. Rn consulting Original Note: Pt frequently calling out for nurse and mom. MELISSA this am was 9, 1mg ativan given. Pt having hallucinations seeing bunnies and disoriented stating he is at [facility]. Pt unaware of barrientos catheter, and frequently saying he has to pee. Rn tried calling [facility] Powell to update home medications but phone was not answered.
--- NOTE | 2022-04-03 12:00 | DIET.CONS2 ---
Dietary Inpatient Consultation Note Admission Date: 04/01/2022 03:58 RD Note: Pt with CKD5, eGFR 12, Cr >5, pt is producing urine with barrientos for strict I&Os. Pt on fluid restriction diet with renal diet (downgraded from due to renal function and high phos/high Cr). Diet: 04/01/22 Breakfast Fluid Restriction Diet Diet Modifications: Total fluid amount: 1,000 Amount allotted to patient trays: 800 Fluid in addition to trays: 7601-4129 amount: 600 1297-6048 amount: 200 04/03/22 Lunch Renal Diet Diet Modifications: Renal Specifics: 2gm Sodium Restriction 2gm Potassium Restrictio Low Protein Limited Phosphorus Nutrition Percent Meal Consumed 25% 04/03/22 09:24 Percent Meal Consumed 10 04/02/22 08:49 Percent Meal Consumed 5%-ate an applesauce 04/02/22 04:00 Electronically Signed by: Chica Jin 04/03/22 12:00 Clinical Dietitian [address] [id number]
--- NOTE | 2022-04-03 12:40 | PM.PN.1 ---
Subjective Subjective Date Patient Seen: 04/03/22 Time Patient Seen: 12:50 Interval history: This back pain as his complaint. Wants to sleep. Nursing concerned that the patient has intermittent drops in O2 saturation and continues to pull off his O2 supplementation. Possibly a component of sleep apnea when he naps. Exam Vital Signs (past 8 hours): - 04/03/22 05:00 04/03/22 08:21 04/03/22 08:22 Temperature 98.9 F 98.7 F Pulse Rate 72 79 79 possibly a component of Respiratory Rate 14 14 Blood Pressure 176/101 H 187/99 H 187/99 H Pulse Oximetry 96 95 Oxygen Flow Rate 0 0 04/03/22 11:31 04/03/22 11:55 Temperature 98.5 F Pulse Rate 83 83 Respiratory Rate 11 L 12 Blood Pressure 199/111 H 199/111 H Pulse Oximetry 96 Oxygen Flow Rate 0 Oxygen Delivery Method Nasal Cannula Oxygen Flow Rate 0 Narrative Exam Narrative: Patient appears to have an ashen type color. Intermittently awake. Wants to sleep. Did arouse and introduced himself to me. Nursing concerned about blood pressure control and dropping O2 sat intermittently. Also concern with hallucinations. Does not appear in acute medical distress. HEENT: Pupils equal reactive to light. Extraocular movements normal. Head is normocephalic. Trachea is midline. Cardiovascular: Heart sounds S1 and S2. No extra sounds or murmurs. Peripheral pulses equal bilaterally. Respiratory: General poor air entry throughout the lung root. No wheezes or crackles. Gastrointestinal: Bowel sounds normal. Abdomen is soft. Genitourinary: Bradley catheter in place with poor urine output although urine is not dark. Musculoskeletal: Able to move all ext is volitionally. Skin: Ashen colored. Neuro: Confused intermittently. Normal sensation of all extremities. Psych: Readily apparent encephalopathy. Objective Labs Result Diagrams: 04/03/22 05:08 04/03/22 05:08 Labs: Laboratory Results - last 24 hr 04/03/22 04/03/22 04/03/22 05:08 05:08 05:08 WBC 7.2 RBC 2.26 L Hgb 7.1 L Hct 21.9 L MCV 97.0 MCH 31.6 MCHC 32.6 RDW 20.2 H Plt Count 110 L Neut % (Auto) 48.2 L Lymph % (Auto) 36.2 [place] % (Auto) 9.1 Eos % (Auto) 4.5 H Baso % (Auto) 2.0 Neut # (Auto) 3500 Lymph # (Auto) 2600 [place] # (Auto) 700 Eos # (Auto) 300 Baso # (Auto) 100 RBC Morphology See below Hypochromasia 1+ H Poikilocytosis 1+ H Anisocytosis 2+ H PT 11.8 INR 1.0 Sodium 139 Potassium 4.4 Chloride 109 H Carbon Dioxide 22 BUN 78 H Creatinine 5.38 H Estimated GFR 12 L BUN/Creatinine Ratio 14.5 Glucose 111 H Calcium 8.1 L Total Bilirubin 0.7 Conjugated Bilirubin 0.0 Unconjugated Bilirubin 0.3 AST 28 ALT 11 Alkaline Phosphatase 181 H Total Protein 5.1 L Albumin 2.2 L Globulin 2.9 Albumin/Globulin Ratio 0.8 L PFSH Medical History Anemia of chronic renal failure, stage 5 Cirrhosis of liver CKD (chronic kidney disease) Compression fracture Depression Former smoker GERD (gastroesophageal reflux disease) Gout Hepatitis C (~2011) History of vertebral compression fracture Hypertension Immunosuppression Liver cancer Medical marijuana use GUILLE (obstructive sleep apnea) Osteoporosis PAC (premature atrial contraction) Pain management contract agreement Paroxysmal atrial fibrillation PVC (premature ventricular contraction) Thrombocytopenia Surgical History H/O right wrist surgery History of biliary duct stent placement (01/2013) History of open reduction and internal fixation (ORIF) procedure (09/22/20) History of removal of retained hardware (01/25/21) History of right hip replacement Hx of appendectomy (~1979) Hx of cholecystectomy (~2003) Hx of elbow surgery (~2003) Hx of elbow surgery (~2007) Hx of fusion of cervical spine Hx of hernia repair Hx of shoulder surgery (~2012) Hx of tonsillectomy (~1969) Liver transplant recipient (11/24/11) Presence of left artificial elbow joint Family History Mother Renal failure Father Diabetes mellitus Congestive heart failure Social History household members: friend(s) Smoking Status: Former smoker alcohol intake: current Assessment & Plan Assessment & Plan narrative: 1. Severe anemia likely due to anemia of chronic disease, present on admission ?s/p 1 U PRBC for hg of 6.6 with appropriate response. Hemoglobin is 7.1 today. Will repeat as stat with ensure not dropping further. ?Patient's last normal hemoglobin was in June 2021 when it was 13.9 and has slowly been trending down, and has been in the 7s since January of this year ?Patient has had a history of esophageal varices due to drinking in the past ?Continue PPI IV BID, consider surgical consultation for endoscopy though no evidence thus far of active bleeding. 2. chronic stage IV-V chronic kidney injury, present on admission ?Creatinine has been stable and 5.38 today, likely represents his new baseline. Continue to monitor urine output with Bradley catheter. 3. Acute on chronic diastolic heart failure [place] [address] Continue furosemide 40 mg IV BID, monitoring creatinine closely. Has Bradley, strict Is and Os 1000 ml fluid restriction Last echo was on February 01 of this year, he has a hyperdynamic left ventricle with ventricular hypertrophy and at that time his EF was 70 plus or minus 5% and an increase in the severity of mitral regurgitation over prior. 4. 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 ?Patient's mental status much diminished after 8 mg of PO dilaudid given in the ER. Improved with some narcan afterwards but then with severe pain. ?Continue some opiate pain medications, slowly increased given chronic pain. Elevated ammonia on admission, likely a component of hepatic encephalopathy as well ?Continue rifaximin and lactulose. 5. History of liver transplant, chronic ? Continue home medications in regard to this diagnosis. 6. Chronic back pain w/chronic continuous opioid dependence ?Continue to slowly increase pain medications given encephalopathy on admission. 7. Concern for urinary tract infection. On ceftriaxone 1 g IV every 24 hours. Urine is positive for Gram-negative bacilli currently. 8. Hypertension not well controlled. Add hydralazine 10 mg IV q.6h as needed. Should be for systolic greater than 160. Dispo: remains inpatient, disposition not entirely clear at this time but suspect home in the next few days. Code status: Full code as discussed with the patient who identifies his sister as? his surrogate and POA. Time Spent With Patient Critical Care time: I spent a total of [] minutes of critical care time on this patient's care today; this time is exclusive of procedural time. Quality VTE Deep Vein Thrombosis/Pulmonary Embolism Present on Admission: No
--- NOTE | 2022-04-03 13:07 | PC.NURSE ---
Addendum entered by Edda Trujillo R.N. 04/03/22 18:41: Patients CIWA score is now a 7. After second 1mg of iv ativan given, patient is resting and more calm. Addendum entered by Edda Trujillo R.N. 04/03/22 15:04: CIWA score a 12 now, 1mg of iv ativan just given, and also started on 25mg of librium twice a day with first dose given. Patient is also positive for uti, per Dr. Mosqueda. We are waiting on sensitivites. Patient now has a one to one sitter with him, to help calm him and patient seems to feel a bit better when able to talk to someone. If this iv ativan is not successful for helping calm patient down we will give him another dose in two hours. Original Note: Patient given ativan 1mg po twice now about 4 hours apart. CiWA scale up to a 10 after second 1mg given. He is calling out, agitated, restless, has tremors and is hallucinating. Patient tries to get up but does not quite make it out of the bed. in and talked to patient. She is aware of his breathing, and elevated pressures. ROADWAY TECHNICIAN in with patient now.
[2022-04-03 13:36] LABS: Add Manual Diff / Slide Review NO; Basophils Absolute Auto 100 /uL (0-100); Eosinophils Absolute Auto 200 /uL (0-450); Eosinophils Percent Auto 1.5 % (2-4); Hematocrit 25.8 % (41-53); Hemoglobin 8.3 g/dL (13.5-17.5); Lymphocytes Absolute Auto 2700 /uL (1100-4500); Lymphocytes Percent Auto 26.3 % (25-40); Mean Corpuscular HGB Conc 32.1 % (30-36); Mean Corpuscular Hemoglobin 31.6 PG (26-34); Mean Corpuscular Volume 98.5 fL (80-100); Monocytes Absolute Auto 700 /uL (0-900); Monocytes Percent Auto 6.9 % (3-14); Neutrophils Absolute Auto 6700 /uL (1500-7000); Neutrophils Percent Auto 64.3 % (50-75); Platelet Count 135 X10^3/uL (150-400); Red Blood Cell Count 2.62 X10^6/uL (4.5-5.9); Red Cell Distribution Width 20.6 % (11.6-14.8); White Blood Cell Count 10.4 X10^3/uL (4.5-11.0)
[2022-04-03 13:52] LABS: Anisocytosis 2+; Poikilocytosis 2+
[2022-04-03] MEDS: HALOPERIDOL 5 MG/ML VIAL 1 MG IV (13:58)
[2022-04-03] MEDS: HYDRALAZINE 20 MG/ML VIAL 10 MG IV (13:59)
[2022-04-03] MEDS: chlordiazePOXIDE 25 MG CAPSULE PO (14:41)
[2022-04-03] MEDS: LORazepam 2 MG/ML INJ IV ×4 (14:41→21:43)
--- NOTE | 2022-04-03 15:31 | CM.DPC ---
DCP Cont: Per MD, pt still not medically stable to d/c. Per RN, pt is actively having withdrawals and given librium and ativan and pt was hallucinating. Pt still not appropriate for bedside discussion or PT/OT eval at this time. KRISSY called [facility] at [facility] and left msg to just check in on support after d/c. KRISSY called pt's JUSTICE GISSELL Ramos and discussed pt situation and she confirms that she has actively been working on LTC placement but has had 5 facilities decline likely due to pt's occasional behaviors and multiple meds and medical complexities. Rachel continuing to try LTC placement though and may update his assessment. In discussion, Rachel states the past month she has noticed pt's memory worse and more slurred words and has asked pt multiple times if he is drinking alcohol and pt has denied. Pt was admitted this time with Alcohol level of 33 and now having withdrawals. Rachel plans to continue keeping ED HUNTER SKIN DIVER Joselyn updated on their progress and Rachel involved closely with Sanjay with [facility] and Walter at [facility]. Rachel states a couple days ago prior to admission pt had told Sanjay with [facility] that he has found a room to rent with a friend who is getting a divorce and Rachel plans to follow up with Sanjay to see if this is truly and option and viable. Plan: KRISSY to follow closely for pt's ongoing progress and eventual PT/OT towards hopeful safe d/c back to motel or friend's house. ZENA Montaño
[2022-04-03 20:39] LABS: Ammonia (NH3) 15 umol/L (9-30)
--- NOTE | 2022-04-03 20:52 | DI.US.S_ITS ---
PROCEDURE: US ABDOMEN COMPLETE INDICATIONS: SANDY and abnormal LFTs TECHNIQUE: Real-time scanning was performed of the abdominal and retroperitoneal organs, with image documentation. COMPARISON: [facility], , ABDOMEN LIMITED, 11/09/2014, 22:18. FINDINGS: Liver: The liver measures 13.3 cm in length and demonstrates a coarse echotexture. Gallbladder: The gallbladder is surgically absent. Biliary ducts: Intrahepatic bile ducts are non-dilated. Extrahepatic bile duct caliber measures 5.3 mm. Normal is 6-7 mm or less in diameter, or 10 mm or less post-cholecystectomy. Pancreas: The pancreas is not visualized. Spleen: Spleen is normal in size and homogeneous in echotexture. Kidneys: Kidneys are normal in size and demonstrate increased cortical echogenicity. Right kidney measures 11.4 cm long; left kidney measures 12.9 cm long. No hydronephrosis or nephrolithiasis. No solid masses. Aorta: Visualized aorta is normal in caliber at less than 3 cm. Iliacs: The iliacs are not visualized. IVC: Intrahepatic inferior vena cava is patent. Miscellaneous: No free abdominal fluid. IMPRESSION: 1. Increased hepatic echogenicity noted likely related to fatty infiltration of the liver but other sources of hepatocellular disease cannot be excluded. 2. No hydronephrosis. 3. Increased cortical echogenicity of the bilateral kidneys suggesting medical renal disease. Dictated by: Andressa Lopez M.D. on 04/04/2022 at 9:09 Approved by: Andressa Lopez M.D. on 04/04/2022 at 9:14
--- NOTE | 2022-04-03 21:12 | PM.CN.EICU ---
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 CXR showed bilateral cephalization. Admitted to the floor for acute CHF exacerbation and started on lasix 40 mg IV BID. Hospital course complicated with alcohol withdrawal. Patient received ativan 2 mg X 2 and remains agitated and refusing to take any oral meds. Transferred to ICU for precedex infusion. [facility] Medical History Anemia of chronic renal failure, stage 5 Cirrhosis of liver CKD (chronic kidney disease) Compression fracture Depression Former smoker GERD (gastroesophageal reflux disease) Gout Hepatitis C (~2011) History of vertebral compression fracture Hypertension Immunosuppression Liver cancer Medical marijuana use GUILLE (obstructive sleep apnea) Osteoporosis PAC (premature atrial contraction) Pain management contract agreement Paroxysmal atrial fibrillation PVC (premature ventricular contraction) Thrombocytopenia Surgical History H/O right wrist surgery History of biliary duct stent placement (01/2013) History of open reduction and internal fixation (ORIF) procedure (09/22/20) History of removal of retained hardware (01/25/21) History of right hip replacement Hx of appendectomy (~1979) Hx of cholecystectomy (~2003) Hx of elbow surgery (~2003) Hx of elbow surgery (~2007) Hx of fusion of cervical spine Hx of hernia repair Hx of shoulder surgery (~2012) Hx of tonsillectomy (~1969) Liver transplant recipient (11/24/11) Presence of left artificial elbow joint Family History Mother Renal failure Father Diabetes mellitus Congestive heart failure Social History household members: friend(s) Smoking Status: Former smoker alcohol intake: current Current Medications Current Medications Medications: Home Medications allopurinol 100 mg tablet 100 mg PO DAILY 01/14/20 [History Confirmed 04/03/22] cyclosporine modified 25 mg capsule 25 mg PO BID 01/14/20 [History Confirmed 04/03/22] duloxetine 20 mg capsule,delayed release (Cymbalta) 20 mg PO DAILY 01/14/20 [History Confirmed 04/03/22] gabapentin 300 mg capsule 300 mg PO BID 01/14/20 [History Confirmed 04/03/22] lidocaine 5 % topical patch (Lidoderm) 1 patch topical DAILY PRN Back Pain 01/14/20 [History Confirmed 04/03/22] mycophenolate mofetil 500 mg tablet (CellCept) 500 mg PO BID 01/14/20 [History Confirmed 04/03/22] quetiapine 25 mg tablet (Seroquel) 25 mg PO BEDTIME 01/14/20 [History Confirmed 04/03/22] ursodiol 300 mg capsule 300 mg PO BID 01/14/20 [History Confirmed 04/03/22] pantoprazole 40 mg tablet,delayed release (Protonix) 40 mg PO DAILY #30 tabs 05/14/20 [Rx Confirmed 04/03/22] rifaximin 550 mg tablet (Xifaxan) 550 mg PO BID 09/20/20 [History Confirmed 04/03/22] metoprolol succinate 25 mg tablet,extended release 24 hr 25 mg PO BID 01/25/21 [History Confirmed 04/03/22] tamsulosin 0.4 mg capsule 0.4 mg PO BEDTIME 04/27/21 [History Confirmed 04/03/22] oxycodone 10 mg tablet 10 mg PO Q3HR PRN Pain, Severe (7-10) #60 tabs 05/11/21 [Rx Confirmed 04/03/22] lactulose 20 gram/30 mL oral solution 30 gm PO TID #11,000 mL 07/05/21 [Rx Confirmed 04/03/22] famotidine 20 mg tablet (Pepcid AC) 20 mg PO BEDTIME #120 tabs 07/06/21 [Rx Confirmed 04/03/22] furosemide 40 mg tablet (Lasix) 40 mg PO DAILY #5 tabs 01/17/22 [Rx Confirmed 03/01/22] cholecalciferol (vitamin D3) 25 mcg (1,000 unit) capsule 25 mcg PO DAILY 03/01/22 [History Confirmed 04/03/22] docusate sodium 250 mg capsule 250 mg PO BID 03/01/22 [History Confirmed 03/01/22] fentanyl 25 mcg/hr transdermal patch 1 patch transdermal Q72H 03/01/22 [History Confirmed 04/03/22] losartan 25 mg tablet 25 mg PO QAM 03/01/22 [History Confirmed 04/03/22] multivitamin,ah-[id number] 1 tab PO DAILY 03/01/22 [History Confirmed 04/03/22] ondansetron 4 mg disintegrating tablet 4 mg PO Q8H PRN nausea / vomiting 03/01/22 [History Confirmed 04/03/22] prednisone 5 mg tablet 5 mg PO DAILY PRN gout flare 03/01/22 [History Confirmed 03/01/22] thiamine mononitrate (vit B1) 100 mg tablet 100 mg PO QAM 03/01/22 [History Confirmed 03/01/22] zinc sulfate 50 mg zinc (220 mg) capsule 50 mg PO QAM 03/01/22 [History Confirmed 03/01/22] aspirin 81 mg capsule,delayed release 81 mg PO DAILY 04/03/22 [History Confirmed 04/03/22] diphenhydramine HCl 12.5 mg/5 mL oral liquid 25 mg PO Q4-6H PRN Nausea 04/03/22 [History Confirmed 04/03/22] nifedipine 30 mg tablet,extended release 24 hr 30 mg PO DAILY 04/03/22 [History Confirmed 04/03/22] sucralfate 1 gram tablet 1 g PO ACHS 04/03/22 [History Confirmed 04/03/22] Visit Medications (administered) Generic Name Dose Route Start Last Admin Trade Name Thea PRN Reason Stop Dose Admin Acetaminophen 650 mg 04/01/22 02:38 04/02/22 23:25 Acetaminophen 325 Mg Tablet PO 650 mg Q6HR PRN Administration Fever/Mild Pain (1-3) Chlordiazepoxide HCl 25 mg 04/03/22 14:30 04/03/22 14:41 Chlordiazepoxide 25 Mg Capsule PO 25 mg BID JUNIOR Administration Cyclosporine 25 mg 04/01/22 21:00 04/03/22 08:10 Cyclosporine, Modified 25 Mg Capsule PO 25 mg BID JUNIOR Administration Folic Acid 1 mg 04/01/22 09:00 04/03/22 08:12 Folic Acid 1 Mg Tablet PO 1 mg DAILY JUNIOR Administration Furosemide 40 mg 04/02/22 08:00 04/03/22 17:36 Furosemide 40 Mg/4 Ml Vial IV 40 mg 0800,1700 JUNIOR Administration Hydromorphone HCl 0.7 mg 04/01/22 17:24 04/02/22 02:42 Hydromorphone 0.5 Mg Inj IV 0.7 mg Q4H PRN Administration Pain, Moderate (4-6) Ceftriaxone Sodium 1,000 mg/ 100 mls @ 200 mls/hr 04/02/22 01:00 04/03/22 01:21 Sodium Chloride IV Infused Q24H JUNIOR Infusion Lorazepam 0 mg 04/03/22 14:17 04/03/22 19:50 Lorazepam 2 Mg/Ml Inj IV 2 mg CIWAPRN PRN Administration Alcohol Withdrawal Protocol Metoprolol Tartrate 25 mg 04/01/22 21:00 04/03/22 08:10 Metoprolol Ir 25 Mg Tablet PO 25 mg BID JUNIOR Administration Multivitamins 1 tab 04/01/22 09:00 04/03/22 08:11 Multivitamin 1 Tablet PO 1 tab DAILY JUNIOR Administration Mycophenolate Mofetil 500 mg 04/01/22 21:00 04/03/22 08:16 Mycophenolate Mofetil 500 Mg Tablet PO 500 mg BID JUNIOR Administration Naloxone HCl 0.4 mg 04/01/22 08:31 04/01/22 08:51 Naloxone 0.4 Mg/Ml Vial IV 0.4 mg Q30MIN PRN Administration Opiate Reversal Pantoprazole Sodium 40 mg 04/01/22 13:45 04/03/22 08:17 Pantoprazole 40 Mg Vial IV 40 mg BID JUNIOR Administration Rifaximin 550 mg 04/02/22 21:00 04/03/22 08:11 Rifaximin 550 Mg Tablet PO 550 mg BID JUNIOR Administration Thiamine HCl 100 mg 04/01/22 09:00 04/03/22 08:13 Thiamine 100 Mg Tablet PO 04/04/22 09:01 100 mg DAILY JUNIOR Administration Exam Vital Signs (past 8 hours): - 04/03/22 13:52 04/03/22 13:59 04/03/22 15:06 Pulse Rate 86 84 93 H Respiratory Rate Blood Pressure 209/118 H 209/118 H 193/111 H Pulse Oximetry Oxygen Flow Rate 04/03/22 15:01 04/03/22 18:28 04/03/22 20:31 Pulse Rate 93 H 86 91 H Respiratory Rate 14 12 Blood Pressure 193/111 H 181/98 H 199/109 H Pulse Oximetry 97 Oxygen Flow Rate 2 Oxygen Delivery Method Nasal Cannula Oxygen Flow Rate 2 Objective Labs Result Diagrams: 04/03/22 13:31 04/03/22 05:08 Labs: Laboratory Results - last 24 hr 04/03/22 04/03/22 04/03/22 05:08 05:08 05:08 WBC 7.2 RBC 2.26 L Hgb 7.1 L Hct 21.9 L MCV 97.0 MCH 31.6 MCHC 32.6 RDW 20.2 H Plt Count 110 L Neut % (Auto) 48.2 L Lymph % (Auto) 36.2 [place] % (Auto) 9.1 Eos % (Auto) 4.5 H Baso % (Auto) 2.0 Neut # (Auto) 3500 Lymph # (Auto) 2600 [place] # (Auto) 700 Eos # (Auto) 300 Baso # (Auto) 100 RBC Morphology See below Hypochromasia 1+ H Poikilocytosis 1+ H Anisocytosis 2+ H PT 11.8 INR 1.0 Sodium 139 Potassium 4.4 Chloride 109 H Carbon Dioxide 22 BUN 78 H Creatinine 5.38 H Estimated GFR 12 L BUN/Creatinine Ratio 14.5 Glucose 111 H Calcium 8.1 L Total Bilirubin 0.7 Conjugated Bilirubin 0.0 Unconjugated Bilirubin 0.3 AST 28 ALT 11 Alkaline Phosphatase 181 H Ammonia Total Protein 5.1 L Albumin 2.2 L Globulin 2.9 Albumin/Globulin Ratio 0.8 L 04/03/22 04/03/22 13:31 20:20 WBC 10.4 RBC 2.62 L Hgb 8.3 L Hct 25.8 L MCV 98.5 MCH 31.6 MCHC 32.1 RDW 20.6 H Plt Count 135 L Neut % (Auto) 64.3 Lymph % (Auto) 26.3 Stokes % (Auto) 6.9 Eos % (Auto) 1.5 L Baso % (Auto) 1.0 Neut # (Auto) 6700 Lymph # (Auto) 2700 [place] # (Auto) 700 Eos # (Auto) 200 Baso # (Auto) 100 RBC Morphology Not Reportable Hypochromasia Poikilocytosis 2+ H Anisocytosis 2+ H PT INR Sodium Potassium Chloride Carbon Dioxide BUN Creatinine Estimated GFR BUN/Creatinine Ratio Glucose Calcium Total Bilirubin Conjugated Bilirubin Unconjugated Bilirubin AST ALT Alkaline Phosphatase Ammonia 15 Total Protein Albumin Globulin Albumin/Globulin Ratio Assessment & Plan Assessment & Plan narrative: NEURO: # Acute encephalopathy -- Considered multifactorial due to metabolic derangement, alcohol withdrawal, and hepatic encephalopathy -- Transfer to ICU for precedex infusion -- Needs NGT placement for lactulose and rifaximin -- Cont frequent reorientation -- RASS goal -1 to 0 -- Seek early mobility # Alcohol abuse -- On thiamine, folic acid, and MTV -- Plan to start precedex infusion -- RASS goal -1 to 0 -- On librium therapy RESP: # Acute hypoxemia respiratory failure -- Secondary to pulmonary edema and atelectasis -- Recommend starting lasix infusion 5 mg/hr to seek net negative fluid balance -- HOB elevation -- Encourage IS when encephalopathy improves -- GOal SpO2 > 88% CVS: # HTN urgency -- Recommend starting norvsc 10 mg po daily and coreg 6.25 mg BID -- Titrate coreg to seek goal SBP < 140 -- Needs preload reduction via lasix infusion # Acute decompensated CHF exacerbation -- Recommend lasix infusion to seek net negative fluid balance -- Titrate lasix infusion maintain at least 100 mL UOP per hour -- Strict I/O -- High lytes goal -- Daily BMP : # SANDY on CKD -- Secondary to renal venous congestion -- Cont aggressive diuresis as above -- Avoid nephrotoxin agents -- Check renal US -- Daily BMP -- Monitor UOP -- Given worsening BUN and Cr, would recommend seeking transfer to tertiary care for potential renal replacement therapy GI: # Hx of liver transplant -- On cyclosporine and cellcept -- Check US abdomen ID: # Concern for PNA -- On ceftriaxone -- Recommend sending blood and resp cx -- Deescalate abx if cx are negative HEME: # Anemia -- Secondary to acute sickness and alcohol abuse -- Daily CBC -- Goal Hb > 7 ENDO: -- Goal BS < 180 Time Spent With Patient Critical Care time: I spent a total of 36 minutes of critical care time on this patient's care today; this time is exclusive of procedural time.
--- NOTE | 2022-04-03 21:31 | P.PN_ITS ---
Subjective Subjective Date Patient Seen: 04/03/22 Time Patient Seen: 21:31 Interval history: Mr. Wilks is a 56y.o. male with PMH liver transplant due to Hep C/HCC, hepatic encephalopathy, CHF, CKD stage 4, GUILLE, alcohol and methamethamine dependence, and recent positive COVID hospitalization at the [facility] in January for who presented to the hospital with shortness of breath and feeling poorly is approaching hospital day 3. He has had increasing confusion, hallucinaions, restless and trying to get out of bed, increased CIWA scores, and deteriorating renal function, now requiring a 1:1 observer. Today he was started on a librium tapor, and I had just increased his lactulose which apparently unbeknownst to me, he was refusing. He continues to receive IV Ceftriaxone and agressive diuresis with furosemide. Rechecked his ammonia level and it is within normal limits at 15. Discussed case with top hat body maker, Dr. Zafar who concurs with need for transfer to ICU and being readied for transfer to a tertiary facility. Exam Vital Signs (past 8 hours): - 04/03/22 13:52 04/03/22 13:59 04/03/22 15:06 Pulse Rate 86 84 93 H Respiratory Rate Blood Pressure 209/118 H 209/118 H 193/111 H Pulse Oximetry Oxygen Flow Rate 04/03/22 15:01 04/03/22 18:28 04/03/22 20:31 Pulse Rate 93 H 86 91 H Respiratory Rate 14 12 Blood Pressure 193/111 H 181/98 H 199/109 H Pulse Oximetry 97 Oxygen Flow Rate 2 Oxygen Delivery Method Nasal Cannula Oxygen Flow Rate 2 Narrative Exam Narrative: Gen: Alert and confused, obese 56 y.o. male, ashen appearing HEENT: normocephalic, atraumatic, conjunctiva clear, sclera non-icteric, oral mu cosa pink and moist Neck: supple, full ROM, no JVD, trachea is midline Skin: ashen appearing Neuro: Confused and needy. GCS 11. Extremities: moves all 4 extremities, is ambulatory, negative Jayjay?s sign Psyche: anxious Objective Labs Result Diagrams: 04/03/22 13:31 04/03/22 05:08 Labs: Laboratory Results - last 24 hr 04/03/22 04/03/22 04/03/22 05:08 05:08 05:08 WBC 7.2 RBC 2.26 L Hgb 7.1 L Hct 21.9 L MCV 97.0 MCH 31.6 MCHC 32.6 RDW 20.2 H Plt Count 110 L Neut % (Auto) 48.2 L Lymph % (Auto) 36.2 [place] % (Auto) 9.1 Eos % (Auto) 4.5 H Baso % (Auto) 2.0 Neut # (Auto) 3500 Lymph # (Auto) 2600 [place] # (Auto) 700 Eos # (Auto) 300 Baso # (Auto) 100 RBC Morphology See below Hypochromasia 1+ H Poikilocytosis 1+ H Anisocytosis 2+ H PT 11.8 INR 1.0 Sodium 139 Potassium 4.4 Chloride 109 H Carbon Dioxide 22 BUN 78 H Creatinine 5.38 H Estimated GFR 12 L BUN/Creatinine Ratio 14.5 Glucose 111 H Calcium 8.1 L Total Bilirubin 0.7 Conjugated Bilirubin 0.0 Unconjugated Bilirubin 0.3 AST 28 ALT 11 Alkaline Phosphatase 181 H Ammonia Total Protein 5.1 L Albumin 2.2 L Globulin 2.9 Albumin/Globulin Ratio 0.8 L 04/03/22 04/03/22 13:31 20:20 WBC 10.4 RBC 2.62 L Hgb 8.3 L Hct 25.8 L MCV 98.5 MCH 31.6 MCHC 32.1 RDW 20.6 H Plt Count 135 L Neut % (Auto) 64.3 Lymph % (Auto) 26.3 [place] % (Auto) 6.9 Eos % (Auto) 1.5 L Baso % (Auto) 1.0 Neut # (Auto) 6700 Lymph # (Auto) 2700 [place] # (Auto) 700 Eos # (Auto) 200 Baso # (Auto) 100 RBC Morphology Not Reportable Hypochromasia Poikilocytosis 2+ H Anisocytosis 2+ H PT INR Sodium Potassium Chloride Carbon Dioxide BUN Creatinine Estimated GFR BUN/Creatinine Ratio Glucose Calcium Total Bilirubin Conjugated Bilirubin Unconjugated Bilirubin AST ALT Alkaline Phosphatase Ammonia 15 Total Protein Albumin Globulin Albumin/Globulin Ratio [facility] Medical History Anemia of chronic renal failure, stage 5 Cirrhosis of liver CKD (chronic kidney disease) Compression fracture Depression Former smoker GERD (gastroesophageal reflux disease) Gout Hepatitis C (~2011) History of vertebral compression fracture Hypertension Immunosuppression Liver cancer Medical marijuana use GUILLE (obstructive sleep apnea) Osteoporosis PAC (premature atrial contraction) Pain management contract agreement Paroxysmal atrial fibrillation PVC (premature ventricular contraction) Thrombocytopenia Surgical History H/O right wrist surgery History of biliary duct stent placement (01/2013) History of open reduction and internal fixation (ORIF) procedure (09/22/20) History of removal of retained hardware (01/25/21) History of right hip replacement Hx of appendectomy (~1979) Hx of cholecystectomy (~2003) Hx of elbow surgery (~2003) Hx of elbow surgery (~2007) Hx of fusion of cervical spine Hx of hernia repair Hx of shoulder surgery (~2012) Hx of tonsillectomy (~1969) Liver transplant recipient (11/24/11) Presence of left artificial elbow joint Family History Mother Renal failure Father Diabetes mellitus Congestive heart failure Social History household members: friend(s) Smoking Status: Former smoker alcohol intake: current Assessment & Plan Assessment & Plan narrative: Assessment & Plan narrative: Acute combined toxic and hepatic encephalopathy. * Initially patient's mental status much diminished after 8 mg of PO dilaudid given in the ER. Improved with some narcan afterwards but continues to complain of severe back pain. * Continue some opiate pain medications, slowly increased given chronic pain. * Elevated ammonia on admission, likely a component of hepatic encephalopathy as well, though well below levels previously treated for, now normalized * Patient has been receiving lactulose bid, was reported to be refusing. Inc reased to QID either through OG tube or enemas for a goal of 3-4 bms/day. * He has only had 2 bms in 2 days * Continue rifaximin 550 mg og bid. Severe anemia likely due to anemia of chronic disease, present on admission * ?s/p 1 U PRBC for hg of 6.6 with appropriate response.? Hemoglobin is 7.1 today.? Will repeat as stat with ensure not dropping further. * ?Patient's last normal hemoglobin was in June 2021 when it was 13.9 and has slowly been trending down, and has been in the 7s since Vee of this year * ?Patient has had a history of esophageal varices due to drinking in the past * ?Continue PPI IV BID, consider surgical consultation for endoscopy though no evidence thus far of active bleeding. Chronic stage IV-V chronic kidney injury, present on admission * Creatinine has been stable, now worsening, and 5.38 today, may represents his new baseline. * Continue to monitor urine output with Bradley catheter. UOP presently is good * Furosemide drip at 5 mg/hour goal UOP 100 ml/hour Acute on chronic diastolic heart failure present on admission * ProBNP was [id number] * Furosemide drip as above * Has Bradley, strict Is and Os * 1000 ml fluid restriction * Last echo was on February 01 of this year, he has a hyperdynamic left ventricle with ventricular hypertrophy and at that time his EF was 70 plus or minus 5% and an increase in the severity of mitral regurgitation over prior. History of liver transplant, chronic * Continue home medications in regard to this diagnosis. * CT of the abdomen ordered by top hat body maker Chronic back pain w/chronic continuous opioid dependence * Continue to slowly increase pain medications given encephalopathy on admission. Concern for urinary tract infection. * On ceftriaxone 1 g IV every 24 hours.? Urine is positive for Gram-negative bacilli currently. Hypertension not well controlled.? * He is initiated on per tube, amlodipine 10 mg daily and coreg 6.25 mg bid * Goal systolic greater than 160. 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 Code status: Full code as previously discussed with the patient who identified his sister as? his surrogate and POA. Time Spent With Patient Critical Care time: I spent a total of 40 minutes of critical care time on this patient's care today; this time is exclusive of procedural time. Scores GCS Atul coma scale eye opening: To sound [place] coma scale verbal response: Confused Atul coma scale motor response: Normal flexion [place] coma scale total score: 11 Wells' Criteria for PE Clinical signs and symptoms of DVT: No PE is #1 Dx or equally likely: No Heart rate > 100: No Immobilization at least 3 days or surg in previous 4 weeks: No History of PE or DVT: No Hemoptysis: No Malignancy w/Treatment within 6 months or palliative: No Wells' PE Score total: 0 Quality VTE Deep Vein Thrombosis/Pulmonary Embolism Present on Admission: No MIPS - Admit I confirm the patient?s Advance Care Plan is present, Code status is documented, Surrogate decision maker is in patient?s record [If Yes, STOP here]: Yes MIPS - DC The patient has current or prior documentation of left ventricular ejection fraction (LVEF) less than 40%, or moderate or severely depressed left ventricular systolic function.: No
[2022-04-03] MEDS: METOPROLOL TARTRATE 5 MG/5 ML INJ IV (21:32)
--- NOTE | 2022-04-03 23:02 | DI.RAD.S_ITS ---
PROCEDURE: XR CHEST 1V INDICATIONS: confirm NG tube placement TECHNIQUE: One view of the chest was acquired. COMPARISON: [facility], CR, XR CHEST 1V, 04/01/2022, 0:14. FINDINGS: Surgical changes and devices: Nasogastric tube present projecting over the left upper quadrant of the abdomen. Several right upper quadrant surgical clips are present. There are several overlying monitoring wires. Lungs and pleura: Multifocal bilateral alveolar opacities and perihilar prominence. Diffuse interstitial thickening. No pneumothorax. Mediastinum: Cardiomegaly and stable mediastinal contour. Bones and chest wall: Diffuse demineralization unremarkable soft tissues. IMPRESSION: 1. Adequate position of nasogastric tube. 2. Multifocal bilateral alveolar and interstitial opacities. 3. Stable cardiomegaly with slight decrease in central venous congestion. Dictated by: Kati Vickers M.D. on 04/03/2022 at 23:55 Approved by: Kati Vickers M.D. on 04/03/2022 at 23:59
[2022-04-03] MEDS: FUROSEMIDE 100 MG in SODIUM CHLORIDE 0.9% 50 ML IV (23:22)
[2022-04-04] VITALS (62 sets, daily range): BP systolic 95–188; BP diastolic 51–111; PULSE 50–86; RESP 0–44; TEMP 35.6–36.6; O2SAT 88–100
[2022-04-04 01:04] LABS: PCO2 ABG 54.1 mmHg (35-45); PO2 ABG 146 mmHg (80-100); pH ABG 7.23 (7.35-7.45)
[2022-04-04 01:05] LABS: Fractionated Inspired Oxygen 40; HCO3 ABG 23 mmol/L (22-26); Oxygen Saturation ABG 99 % (95-100); TCO2 ABG 25 mmol/L (21-31)
--- NOTE | 2022-04-04 01:41 | RT ---
RT called to ICU to place pt on HHFNC and ETCO2 monitoring. Explained to RN that ETCO2 monitoring can be put in-line as the pt has HF cannula. ABG done 30 minutes post HHFNC placement. Results seen by MD and RN. Recommended Bipap V60 however, awaiting further orders by MD. Pt to remain on HHFNC. Pt resting with normal saturation limits. No respiratory distress noted.
[2022-04-04] MEDS: cefTRIAXone 1,000 MG in SODIUM CHLORIDE 0.9% 100 ML 200 MG IV (02:03)
[2022-04-04] MEDS: PANTOPRAZOLE 40 MG VIAL IV ×3 (02:10→20:00)
[2022-04-04] MEDS: CYCLOSPORINE, MODIFIED 25 MG CAPSULE PO ×3 (02:14→19:59)
[2022-04-04 02:24] LABS: Hematocrit 25.3 % (41-53); Hemoglobin 8.1 g/dL (13.5-17.5); Mean Corpuscular HGB Conc 32.1 % (30-36); Mean Corpuscular Hemoglobin 31.6 PG (26-34); Mean Corpuscular Volume 98.6 fL (80-100); Platelet Count 125 X10^3/uL (150-400); Red Blood Cell Count 2.57 X10^6/uL (4.5-5.9); Red Cell Distribution Width 20.6 % (11.6-14.8); White Blood Cell Count 9.6 X10^3/uL (4.5-11.0)
[2022-04-04 02:27] LABS: Add Manual Diff / Slide Review YES
[2022-04-04 02:36] LABS: Anisocytosis 2+; Hypochromasia 1+; Neutrophils Absolute Manual 7392 /uL (3000-5900); Poikilocytosis 2+; Total Cells Counted 100
[2022-04-04] MEDS: MYCOPHENOLATE MOFETIL 500 MG TABLET PO ×3 (02:37→19:59)
[2022-04-04] MEDS: RIFAXIMIN 550 MG TABLET PO ×3 (02:37→19:59)
[2022-04-04 02:41] LABS: Alanine Aminotransferase 12 IU/L (<50); Albumin 2.6 g/dL (3.5-5.0); Albumin Globulin Ratio 0.8 (1.0-2.8); Alkaline Phosphatase 218 U/L (38-126); Aspartate Aminotransferase 33 IU/L (17-59); BUN Creatinine Ratio 14.9 (6-22); Bilirubin Unconjugated 0.3 mg/dL (0.0-1.1); Blood Urea Nitrogen 81 mg/dL (9-20); Calcium 8.5 mg/dL (8.4-10.2); Carbon Dioxide 23 mmol/L (22-32); Chloride 108 mmol/L (98-107); Estimated Glomerular Filt Rate 11 mL/min (>60); Globulin 3.2 g/dL (1.7-4.1); Glucose 116 mg/dL (70-100); HEMOLYSIS < 15 (0-50); Magnesium 1.9 mg/dL (1.6-2.3); Potassium 4.9 mmol/L (3.4-5.1); Sodium 140 mmol/L (137-145); Total Protein 5.8 g/dL (6.3-8.2)
[2022-04-04] MEDS: OCTREOTIDE 500 MCG in SODIUM CHLORIDE 0.9% 100 ML 10.1 MCG IV (02:54)
[2022-04-04] MEDS: dexmedeTOMIDine in 0.9 % NaCL 400 MCG/100 ML PLAST..BAG IV ×2 (04:34→19:45)
[2022-04-04 05:51] LABS: Fractionated Inspired Oxygen 28; HCO3 ABG 22 mmol/L (22-26); Oxygen Saturation ABG 94 % (95-100); PCO2 ABG 47.4 mmHg (35-45); PO2 ABG 82 mmHg (80-100); TCO2 ABG 23 mmol/L (21-31); pH ABG 7.27 (7.35-7.45)
--- NOTE | 2022-04-04 06:57 | PC.NURSE ---
Care of patient from [id number]. Patient transferred from acute to ICU at 2199, arrived somnolent, snoring, apnea respirations, RASS -3. Prior to arriving in ICU patient was given Ativan 2mg IV X2 for CIWA score of 12. On admit to ICU at 2199 patient's GCS=9. Lime Supervisor notified. Lasix gtt started, NG placed. Blood pressure medications. lactulose held per vo from Anushka Ponce. Lasix gtt d/c, urine output decreased, hospitalist notified. Midline placed. NG was placed to LIWS for trial, yellow thick secretions out 75ml, hospitalist notified, NG clamped and is for medication pass. At 0400 patient restless, pulling at NG, IV nurse attempting to place PICC line, notified hospitalist, new order for restraints and ok to start precedex gtt. Update report given to hospitalist at end of shift, B/P 98/57 HR 66. Report given to day shift RN.
--- NOTE | 2022-04-04 08:50 | PM.PN.1 ---
Subjective Subjective Date Patient Seen: 04/04/22 Time Patient Seen: 08:30 Interval history: Patient is sedated and not voicing complaints. However is arousable and appears in no acute distress. Nursing asking questions about oral medication and this is been changed to per NG tube. Amlodipine will be held if systolic is 120 or less. Exam Vital Signs (past 8 hours): - 04/04/22 01:00 04/04/22 01:43 04/04/22 02:00 Temperature Pulse Rate 69 72 82 Respiratory Rate 7 L 24 Blood Pressure 139/79 156/88 H 188/111 H Pulse Oximetry 100 100 Oxygen Delivery Method Oxygen Flow Rate 40 40 Fraction of Inspired Oxygen 04/04/22 03:00 04/04/22 03:57 04/04/22 04:00 Temperature 97.8 F Pulse Rate 69 75 86 Respiratory Rate 12 16 21 Blood Pressure 163/85 H 163/85 H 150/87 H Pulse Oximetry 98 98 98 Oxygen Delivery Method Oxygen Flow Rate 40 40 Fraction of Inspired Oxygen 04/04/22 05:00 04/04/22 05:37 04/04/22 04:00 Temperature Pulse Rate 76 72 Respiratory Rate 8 L 10 L Blood Pressure 132/64 132/64 Pulse Oximetry 97 96 Oxygen Delivery Method High Flow Nasal Cannula Oxygen Flow Rate 40 Fraction of Inspired Oxygen 04/04/22 06:00 04/04/22 07:00 04/04/22 03:14 Temperature 97.1 F L Pulse Rate 71 68 71 Respiratory Rate 7 L 12 0 L Blood Pressure 95/51 L 97/56 L Pulse Oximetry 95 95 98 Oxygen Delivery Method Oxygen Flow Rate 40 40 Fraction of Inspired Oxygen 04/04/22 03:30 04/04/22 04:00 04/04/22 04:00 Temperature Pulse Rate 73 76 Respiratory Rate 10 L 8 L Blood Pressure 150/87 H Pulse Oximetry 98 98 Oxygen Delivery Method Oxygen Flow Rate Fraction of Inspired Oxygen 04/04/22 04:30 04/04/22 05:00 04/04/22 05:00 Temperature Pulse Rate 81 77 Respiratory Rate 13 9 L Blood Pressure 132/64 Pulse Oximetry 98 97 Oxygen Delivery Method Oxygen Flow Rate Fraction of Inspired Oxygen 04/04/22 05:30 04/04/22 06:00 04/04/22 06:00 Temperature Pulse Rate 72 70 Respiratory Rate 8 L 7 L Blood Pressure 95/51 L Pulse Oximetry 96 96 Oxygen Delivery Method Oxygen Flow Rate Fraction of Inspired Oxygen 04/04/22 06:30 04/04/22 07:00 04/04/22 07:00 Temperature Pulse Rate 67 66 Respiratory Rate 6 L 11 L Blood Pressure 97/56 L Pulse Oximetry 96 94 Oxygen Delivery Method Oxygen Flow Rate Fraction of Inspired Oxygen 04/04/22 07:30 04/04/22 07:32 04/04/22 07:32 Temperature Pulse Rate 66 66 Respiratory Rate 9 L 9 L Blood Pressure 98/57 L Pulse Oximetry 96 96 Oxygen Delivery Method Oxygen Flow Rate Fraction of Inspired Oxygen 04/04/22 08:00 04/04/22 08:01 04/04/22 08:01 Temperature Pulse Rate 65 63 Respiratory Rate 31 H 9 L Blood Pressure 132/73 Pulse Oximetry 98 98 Oxygen Delivery Method Oxygen Flow Rate Fraction of Inspired Oxygen Fraction of Inspired Oxygen 27 Oxygen Delivery Method High Flow Nasal Cannula Oxygen Flow Rate 40 Narrative Exam Narrative: Patient arousable and not voicing any complaints. Difficult to understand since speaks in a mumbling tone. Does not appear to be in any acute distress. HEENT: Pupils equal reactive. Trachea is midline. Head is normocephalic. Cardiovascular: Heart sounds S1 and S2 with no extra sounds or murmurs. Peripheral pulses equal bilaterally. Respiratory: General decreased air entry throughout the lung root but no wheezes or crackles. Gastrointestinal: Multiple scars on abdomen and appearance of a incisional hernia. Bowel sounds normal. Nondistended. Nontender. Skin: Ashen color. No new lesions or rashes. Musculoskeletal: Able to move extremities volitionally. Has restraints in place. Neuro: Sedated with a Precedex. Psych: Requiring Precedex for agitation. Objective Labs Result Diagrams: 04/04/22 02:00 04/04/22 02:00 Labs: Laboratory Results - last 24 hr 04/03/22 04/03/22 04/04/22 13:31 20:20 00:43 WBC 10.4 RBC 2.62 L Hgb 8.3 L Hct 25.8 L MCV 98.5 MCH 31.6 MCHC 32.1 RDW 20.6 H Plt Count 135 L Neut % (Auto) 64.3 Lymph % (Auto) 26.3 [place] % (Auto) 6.9 Eos % (Auto) 1.5 L Baso % (Auto) 1.0 Neut # (Auto) 6700 Lymph # (Auto) 2700 [place] # (Auto) 700 Eos # (Auto) 200 Baso # (Auto) 100 Total Counted Seg Neutrophils % Band Neutrophils % Lymphocytes % (Manual) Monocytes % (Manual) Eosinophils % (Manual) Basophils % (Manual) Neutrophils # (Manual) RBC Morphology Not Reportable Hypochromasia Poikilocytosis 2+ H Anisocytosis 2+ H ABG pH 7.23 L* ABG pCO2 54.1 H ABG pO2 146 H ABG HCO3 23 ABG Total CO2 25 ABG O2 Saturation 99 ABG Base Excess -5.0 L FiO2 40 Sodium Potassium Chloride Carbon Dioxide BUN Creatinine Estimated GFR BUN/Creatinine Ratio Glucose Calcium Magnesium Total Bilirubin Conjugated Bilirubin Unconjugated Bilirubin AST ALT Alkaline Phosphatase Ammonia 15 Total Protein Albumin Globulin Albumin/Globulin Ratio 04/04/22 04/04/22 04/04/22 02:00 02:00 05:32 WBC 9.6 RBC 2.57 L Hgb 8.1 L Hct 25.3 L MCV 98.6 MCH 31.6 MCHC 32.1 RDW 20.6 H Plt Count 125 L Neut % (Auto) Not Reportable Lymph % (Auto) Not Reportable [place] % (Auto) Not Reportable Eos % (Auto) Not Reportable Baso % (Auto) Not Reportable Neut # (Auto) Lymph # (Auto) Not Reportable [place] # (Auto) Not Reportable Eos # (Auto) Baso # (Auto) Not Reportable Total Counted 100 Seg Neutrophils % 75.0 H Band Neutrophils % 2.0 L Lymphocytes % (Manual) 14.0 L Monocytes % (Manual) 7.0 Eosinophils % (Manual) 1.0 L Basophils % (Manual) 1.0 Neutrophils # (Manual) 7392 H RBC Morphology See below Hypochromasia 1+ H Poikilocytosis 2+ H Anisocytosis 2+ H ABG pH 7.27 L* ABG pCO2 47.4 H ABG pO2 82 ABG HCO3 22 ABG Total CO2 23 ABG O2 Saturation 94 L ABG Base Excess -5.0 L FiO2 28 Sodium 140 Potassium 4.9 Chloride 108 H Carbon Dioxide 23 BUN 81 H Creatinine 5.43 H Estimated GFR 11 L BUN/Creatinine Ratio 14.9 Glucose 116 H Calcium 8.5 Magnesium 1.9 Total Bilirubin 1.0 Conjugated Bilirubin 0.0 Unconjugated Bilirubin 0.3 AST 33 ALT 12 Alkaline Phosphatase 218 H Ammonia Total Protein 5.8 L Albumin 2.6 L Globulin 3.2 Albumin/Globulin Ratio 0.8 L PFSH Medical History Anemia of chronic renal failure, stage 5 Cirrhosis of liver CKD (chronic kidney disease) Compression fracture Depression Former smoker GERD (gastroesophageal reflux disease) Gout Hepatitis C (~2011) History of vertebral compression fracture Hypertension Immunosuppression Liver cancer Medical marijuana use GUILLE (obstructive sleep apnea) Osteoporosis PAC (premature atrial contraction) Pain management contract agreement Paroxysmal atrial fibrillation PVC (premature ventricular contraction) Thrombocytopenia Surgical History H/O right wrist surgery History of biliary duct stent placement (01/2013) History of open reduction and internal fixation (ORIF) procedure (09/22/20) History of removal of retained hardware (01/25/21) History of right hip replacement Hx of appendectomy (~1979) Hx of cholecystectomy (~2003) Hx of elbow surgery (~2003) Hx of elbow surgery (~2007) Hx of fusion of cervical spine Hx of hernia repair Hx of shoulder surgery (~2012) Hx of tonsillectomy (~1969) Liver transplant recipient (11/24/11) Presence of left artificial elbow joint Family History Mother Renal failure Father Diabetes mellitus Congestive heart failure Social History household members: friend(s) Smoking Status: Former smoker alcohol intake: current Assessment & Plan Assessment & Plan narrative: 1. Severe anemia likely due to anemia of chronic disease, present on admission ?s/p 1 U PRBC for hg of 6.6 with appropriate response.? Hemoglobin is 8.1 today which is stable.? Continue to follow. ?Patient's last normal hemoglobin was in June 2021 when it was 13.9 and has slowly been trending down, and has been in the 7s since January of this year ?Patient has had a history of esophageal varices due to drinking in the past ?Continue PPI IV BID, consider surgical consultation for endoscopy though no evidence thus far of active bleeding. Octreotide was initiated last night. And discontinue it since no active bleeding. 2. chronic stage IV-V chronic kidney injury, present on admission ?Creatinine has been stable and 5.43 today, likely represents his new baseline. However slowly increasing during the hospital stay. Continue to follow. Continue to monitor urine output with Bradley catheter. 3. Acute on chronic diastolic heart failure present on admission ProBNP was 16256. Follow-up tomorrow to assess progress. Continue furosemide 40 mg IV BID, monitoring creatinine closely. Has Bradley, strict Is and Os 1000 ml fluid restriction Last echo was on February 01 of this year, he has a hyperdynamic left ventricle with ventricular hypertrophy and at that time his EF was 70 plus or minus 5% and an increase in the severity of mitral regurgitation over prior. 4. 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 ?Patient's mental status much diminished after 8 mg of PO dilaudid given in the ER. Improved with some narcan afterwards but then with severe pain. ?Continue some opiate pain medications, slowly increased given chronic pain. ?Elevated ammonia on admission, likely a component of hepatic encephalopathy as well. Most recent ammonia level 15. Continue to follow. ?Continue rifaximin and lactulose. 5. History of liver transplant, chronic ?? Continue home medications in regard to this diagnosis. 6. Chronic back pain w/chronic continuous opioid dependence ?Continue to slowly increase pain medications given encephalopathy on admission. 7. Concern for urinary tract infection.? On ceftriaxone 1 g IV every 24 hours.? Urine is positive for Gram-negative bacilli currently. This appears to be a contaminant. Ceftriaxone being discontinued due to concern about hospital-acquired pneumonia 8. Hypertension not well controlled.? This has stabilized. Continue home regular medication unless systolic less than 120 and then hold amlodipine in that case.. 9. Concern for pneumonia. Has has patchy opacities on recent chest x-ray. This would be a hospital-acquired pneumonia. Will switch antibiotic from ceftriaxone to Zosyn. Dispo: remains inpatient, disposition not entirely clear at this time but suspect home in the next few days. Code status: Full code as discussed with the patient who identifies his sister as? his surrogate and POA. Time Spent With Patient Critical Care time: I spent a total of [] minutes of critical care time on this patient's care today; this time is exclusive of procedural time. Quality VTE Deep Vein Thrombosis/Pulmonary Embolism Present on Admission: No
[2022-04-04] MEDS: MULTIVITAMIN 1 TABLET 1 TAB PO (09:15)
[2022-04-04] MEDS: ASPIRIN 81 MG CHEW TAB PO (09:15)
[2022-04-04] MEDS: FOLIC ACID 1 MG TABLET PO (09:16)
[2022-04-04] MEDS: chlordiazePOXIDE 25 MG CAPSULE PO ×2 (09:16→19:59)
[2022-04-04] MEDS: LACTULOSE 20 GM/30 ML SOLUTION 30 GM PO ×4 (09:16→19:59)
[2022-04-04] MEDS: THIAMINE 100 MG TABLET PO (09:16)
--- NOTE | 2022-04-04 09:28 | P.TELICUPN_ITS ---
Subjective Subjective Date Patient Seen: 04/04/22 Consent obtained for tele-bilingual sales assistant care: Yes Patient Location: ICU Provider location (State): [place] Other participants/roles: RN Interval history: No acute issues overnight. On precedex 0.2 mcg. BP improved with SBP ~120s. Will decrease coreg to 3.125 mg BID. Hb 8.1 with no signs of overt bleed. ROS: Unable to participate due to acuity condition Current Medications Current Medications Medications: Home Medications allopurinol 100 mg tablet 100 mg PO DAILY 01/14/20 [History Confirmed 04/03/22] cyclosporine modified 25 mg capsule 25 mg PO BID 01/14/20 [History Confirmed 04/03/22] duloxetine 20 mg capsule,delayed release (Cymbalta) 20 mg PO DAILY 01/14/20 [History Confirmed 04/03/22] gabapentin 300 mg capsule 300 mg PO BID 01/14/20 [History Confirmed 04/03/22] lidocaine 5 % topical patch (Lidoderm) 1 patch topical DAILY PRN Back Pain 01/14/20 [History Confirmed 04/03/22] mycophenolate mofetil 500 mg tablet (CellCept) 500 mg PO BID 01/14/20 [History Confirmed 04/03/22] quetiapine 25 mg tablet (Seroquel) 25 mg PO BEDTIME 01/14/20 [History Confirmed 04/03/22] ursodiol 300 mg capsule 300 mg PO BID 01/14/20 [History Confirmed 04/03/22] pantoprazole 40 mg tablet,delayed release (Protonix) 40 mg PO DAILY #30 tabs [Rx Confirmed 04/03/22] rifaximin 550 mg tablet (Xifaxan) 550 mg PO BID 09/20/20 [History Confirmed 04/03/22] metoprolol succinate 25 mg tablet,extended release 24 hr 25 mg PO BID 01/25/21 [History Confirmed 04/03/22] tamsulosin 0.4 mg capsule 0.4 mg PO BEDTIME 04/27/21 [History Confirmed ] oxycodone 10 mg tablet 10 mg PO Q3HR PRN Pain, Severe (7-10) #60 tabs 05/11/21 [Rx Confirmed 04/03/22] lactulose 20 gram/30 mL oral solution 30 gm PO TID #11,000 mL 07/05/21 [Rx Confirmed 04/03/22] famotidine 20 mg tablet (Pepcid AC) 20 mg PO BEDTIME #120 tabs 07/06/21 [Rx Confirmed 04/03/22] furosemide 40 mg tablet (Lasix) 40 mg PO DAILY #5 tabs 01/17/22 [Rx Confirmed 03/01/22] cholecalciferol (vitamin D3) 25 mcg (1,000 unit) capsule 25 mcg PO DAILY 03/01/22 [History Confirmed 04/03/22] docusate sodium 250 mg capsule 250 mg PO BID 03/01/22 [History Confirmed 03/01/22] fentanyl 25 mcg/hr transdermal patch 1 patch transdermal Q72H 03/01/22 [History Confirmed 04/03/22] losartan 25 mg tablet 25 mg PO QAM 03/01/22 [History Confirmed 04/03/22] multivitamin,px-etsi-pziosgnj 1 tab PO DAILY 03/01/22 [History Confirmed 04/03/22] ondansetron 4 mg disintegrating tablet 4 mg PO Q8H PRN nausea / vomiting 03/01/22 [History Confirmed 04/03/22] prednisone 5 mg tablet 5 mg PO DAILY PRN gout flare 03/01/22 [History Confirmed 03/01/22] thiamine mononitrate (vit B1) 100 mg tablet 100 mg PO QAM 03/01/22 [History Confirmed 03/01/22] zinc sulfate 50 mg zinc (220 mg) capsule 50 mg PO QAM 03/01/22 [History Confirmed 03/01/22] aspirin 81 mg capsule,delayed release 81 mg PO DAILY 04/03/22 [History Confirmed 04/03/22] diphenhydramine HCl 12.5 mg/5 mL oral liquid 25 mg PO Q4-6H PRN Nausea 04/03/22 [History Confirmed 04/03/22] nifedipine 30 mg tablet,extended release 24 hr 30 mg PO DAILY 04/03/22 [History Confirmed 04/03/22] sucralfate 1 gram tablet 1 g PO ACHS 04/03/22 [History Confirmed 04/03/22] Visit Medications (administered) Generic Name Dose Route Start Last Admin Trade Name Freq PRN Reason Stop Dose Admin Acetaminophen 650 mg 04/01/22 02:38 04/02/22 23:25 Acetaminophen 325 Mg Tablet PO 650 mg Q6HR PRN Administration Fever/Mild Pain (1-3) Amlodipine Besylate 10 mg 04/03/22 21:25 04/04/22 08:39 Amlodipine 5 Mg Tablet PO Not Given DAILY [facility] Chlordiazepoxide HCl 25 mg 04/03/22 14:30 04/04/22 00:12 Chlordiazepoxide 25 Mg Capsule PO Not Given BID [facility] Cyclosporine 25 mg 04/01/22 21:00 04/04/22 02:14 Cyclosporine, Modified 25 Mg Capsule PO 25 mg BID JUNIOR Administration Folic Acid 1 mg 04/01/22 09:00 04/03/22 08:12 Folic Acid 1 Mg Tablet PO 1 mg DAILY JUNIOR Administration Hydromorphone HCl 0.7 mg 04/01/22 17:24 04/02/22 02:42 Hydromorphone 0.5 Mg Inj IV 0.7 mg Q4H PRN Administration Pain, Moderate (4-6) dexmedeTOMIDine in 0.9 % NaCL 400 mcg in 100 mls @ 4.955 mls/hr 04/03/22 21:00 04/04/22 05:48 Precedex IV 0.2 mcg/kg/hr TITRATE JUNIOR 4.955 mls/hr Titration Protocol 0.2 MCG/KG/HR Lactulose 30 gm 04/03/22 19:45 04/04/22 02:02 Lactulose 20 Gm/30 Ml Solution PO Not Given QID [facility] Lorazepam 0 mg 04/03/22 14:17 04/03/22 21:43 Lorazepam 2 Mg/Ml Inj IV 2 mg CIWAPRN PRN Administration Alcohol Withdrawal Protocol Multivitamins 1 tab 04/01/22 09:00 04/03/22 08:11 Multivitamin 1 Tablet PO 1 tab DAILY [facility] Administration Mycophenolate Mofetil 500 mg 04/01/22 21:00 04/04/22 02:37 Mycophenolate Mofetil 500 Mg Tablet PO 500 mg BID JUNIOR Administration Pantoprazole Sodium 40 mg 04/04/22 01:15 04/04/22 02:10 Pantoprazole 40 Mg Vial IV 40 mg BID JUNIOR Administration Rifaximin 550 mg 04/02/22 21:00 04/04/22 02:37 Rifaximin 550 Mg Tablet PO 550 mg BID JUNIOR Administration Objective Labs Result Diagrams: 04/04/22 02:00 04/04/22 02:00 Labs: Laboratory Results - last 24 hr 04/03/22 04/03/22 04/04/22 13:31 20:20 00:43 WBC 10.4 RBC 2.62 L Hgb 8.3 L Hct 25.8 L MCV 98.5 MCH 31.6 MCHC 32.1 RDW 20.6 H Plt Count 135 L Neut % (Auto) 64.3 Lymph % (Auto) 26.3 [place] % (Auto) 6.9 Eos % (Auto) 1.5 L Baso % (Auto) 1.0 Neut # (Auto) 6700 Lymph # (Auto) 2700 [place] # (Auto) 700 Eos # (Auto) 200 Baso # (Auto) 100 Total Counted Seg Neutrophils % Band Neutrophils % Lymphocytes % (Manual) Monocytes % (Manual) Eosinophils % (Manual) Basophils % (Manual) Neutrophils # (Manual) RBC Morphology Not Reportable Hypochromasia Poikilocytosis 2+ H Anisocytosis 2+ H ABG pH 7.23 L* ABG pCO2 54.1 H ABG pO2 146 H ABG HCO3 23 ABG Total CO2 25 ABG O2 Saturation 99 ABG Base Excess -5.0 L FiO2 40 Sodium Potassium Chloride Carbon Dioxide BUN Creatinine Estimated GFR BUN/Creatinine Ratio Glucose Calcium Magnesium Total Bilirubin Conjugated Bilirubin Unconjugated Bilirubin AST ALT Alkaline Phosphatase Ammonia 15 Total Protein Albumin Globulin Albumin/Globulin Ratio 04/04/22 04/04/22 04/04/22 02:00 02:00 05:32 WBC 9.6 RBC 2.57 L Hgb 8.1 L Hct 25.3 L MCV 98.6 MCH 31.6 MCHC 32.1 RDW 20.6 H Plt Count 125 L Neut % (Auto) Not Reportable Lymph % (Auto) Not Reportable [place] % (Auto) Not Reportable Eos % (Auto) Not Reportable Baso % (Auto) Not Reportable Neut # (Auto) Lymph # (Auto) Not Reportable [place] # (Auto) Not Reportable Eos # (Auto) Baso # (Auto) Not Reportable Total Counted 100 Seg Neutrophils % 75.0 H Band Neutrophils % 2.0 L Lymphocytes % (Manual) 14.0 L Monocytes % (Manual) 7.0 Eosinophils % (Manual) 1.0 L Basophils % (Manual) 1.0 Neutrophils # (Manual) 7392 H RBC Morphology See below Hypochromasia 1+ H Poikilocytosis 2+ H Anisocytosis 2+ H ABG pH 7.27 L* ABG pCO2 47.4 H ABG pO2 82 ABG HCO3 22 ABG Total CO2 23 ABG O2 Saturation 94 L ABG Base Excess -5.0 L FiO2 28 Sodium 140 Potassium 4.9 Chloride 108 H Carbon Dioxide 23 BUN 81 H Creatinine 5.43 H Estimated GFR 11 L BUN/Creatinine Ratio 14.9 Glucose 116 H Calcium 8.5 Magnesium 1.9 Total Bilirubin 1.0 Conjugated Bilirubin 0.0 Unconjugated Bilirubin 0.3 AST 33 ALT 12 Alkaline Phosphatase 218 H Ammonia Total Protein 5.8 L Albumin 2.6 L Globulin 3.2 Albumin/Globulin Ratio 0.8 L Exam Vital Signs (past 8 hours): - 04/04/22 01:43 04/04/22 02:00 04/04/22 03:00 Temperature Pulse Rate 72 82 69 Respiratory Rate 24 12 Blood Pressure 156/88 H 188/111 H 163/85 H Pulse Oximetry 100 98 Oxygen Delivery Method Oxygen Flow Rate 40 40 Fraction of Inspired Oxygen 04/04/22 03:57 04/04/22 04:00 04/04/22 05:00 Temperature 97.8 F Pulse Rate 75 86 76 Respiratory Rate 16 21 8 L Blood Pressure 163/85 H 150/87 H 132/64 Pulse Oximetry 98 98 97 Oxygen Delivery Method Oxygen Flow Rate 40 40 Fraction of Inspired Oxygen 04/04/22 05:37 04/04/22 04:00 04/04/22 06:00 Temperature Pulse Rate 72 71 Respiratory Rate 10 L 7 L Blood Pressure 132/64 95/51 L Pulse Oximetry 96 95 Oxygen Delivery Method High Flow Nasal Cannula Oxygen Flow Rate 40 Fraction of Inspired Oxygen 04/04/22 07:00 04/04/22 03:14 04/04/22 03:30 Temperature 97.1 F L Pulse Rate 68 71 73 Respiratory Rate 12 0 L 10 L Blood Pressure 97/56 L Pulse Oximetry 95 98 98 Oxygen Delivery Method Oxygen Flow Rate 40 Fraction of Inspired Oxygen 04/04/22 04:00 04/04/22 04:00 04/04/22 04:30 Temperature Pulse Rate 76 81 Respiratory Rate 8 L 13 Blood Pressure 150/87 H Pulse Oximetry 98 98 Oxygen Delivery Method Oxygen Flow Rate Fraction of Inspired Oxygen 04/04/22 05:00 04/04/22 05:00 04/04/22 05:30 Temperature Pulse Rate 77 72 Respiratory Rate 9 L 8 L Blood Pressure 132/64 Pulse Oximetry 97 96 Oxygen Delivery Method Oxygen Flow Rate Fraction of Inspired Oxygen 04/04/22 06:00 04/04/22 06:00 04/04/22 06:30 Temperature Pulse Rate 70 67 Respiratory Rate 7 L 6 L Blood Pressure 95/51 L Pulse Oximetry 96 96 Oxygen Delivery Method Oxygen Flow Rate Fraction of Inspired Oxygen 04/04/22 07:00 04/04/22 07:00 04/04/22 07:30 Temperature Pulse Rate 66 66 Respiratory Rate 11 L 9 L Blood Pressure 97/56 L Pulse Oximetry 94 96 Oxygen Delivery Method Oxygen Flow Rate Fraction of Inspired Oxygen 04/04/22 07:32 04/04/22 07:32 04/04/22 08:00 Temperature Pulse Rate 66 65 Respiratory Rate 9 L 31 H Blood Pressure 98/57 L Pulse Oximetry 96 98 Oxygen Delivery Method Oxygen Flow Rate Fraction of Inspired Oxygen 04/04/22 08:01 04/04/22 08:01 04/04/22 08:30 Temperature Pulse Rate 63 Respiratory Rate 9 L Blood Pressure 132/73 116/66 Pulse Oximetry 98 Oxygen Delivery Method Oxygen Flow Rate Fraction of Inspired Oxygen 04/04/22 08:30 04/04/22 09:00 04/04/22 09:00 Temperature Pulse Rate 61 59 L Respiratory Rate 9 L 10 L Blood Pressure 120/70 Pulse Oximetry 97 97 Oxygen Delivery Method Oxygen Flow Rate Fraction of Inspired Oxygen Fraction of Inspired Oxygen 27 Oxygen Delivery Method High Flow Nasal Cannula Oxygen Flow Rate 40 Quality TeleICU VTE Deep Vein Thrombosis/Pulmonary Embolism Present on Admission: No Assessment & Plan Assessment & Plan narrative: NEURO: # Acute encephalopathy -- Secondary to metabolic derangement, alcohol withdrawal, and hepatic encephalopathy -- On precedex 0.2 mcg -- Cont frequent reorientation -- RASS goal -1 to 0 -- Seek early mobility -- If failed to improve and BUN continues to rise then will need renal replacement therapy to rule out uremic encephalopathy # Alcohol abuse -- On thiamine, folic acid, and MTV -- On precedex -- RASS goal -1 to 0 -- On librium therapy RESP: # Acute hypoxemia respiratory failure -- Secondary to pulmonary edema and atelectasis -- On HFNC 40/28% -- Needs IS and OOB when encephalopathy improve -- HOB elevation -- Encourage IS when encephalopathy improves -- GOal SpO2 > 88% CVS: # HTN -- Decrease coreg to 3.125 mg BID -- Cont norvasc -- Goal SBP < 140 # Acute decompensated CHF exacerbation -- Low UOP overnight -- Recommend gentle diuresis to seek net negative fluid balance -- Strict I/O -- High lytes goal -- Daily BMP : # SANDY on CKD -- Secondary to renal venous congestion -- Recommend diuresis as above -- Avoid nephrotoxin agents -- Pending renal US -- Daily BMP -- Monitor UOP -- Given worsening BUN and Cr along with metabolic acidosis, recommend seeking transfer to tertiary care for potential renal replacement therapy GI: # Hx of liver transplant -- On cyclosporine and cellcept -- Pending US abdomen # HX of GI bleed -- On PPI BID -- No melena or hematochezia reported during round ID: # Concern for PNA -- On ceftriaxone -- Pending blood and resp cx -- Deescalate abx if cx are negative HEME: # Anemia -- Secondary to acute sickness and alcohol abuse -- Daily CBC -- Goal Hb > 7 ENDO: -- Goal BS < 180 SUP: PPI BID VTE: SCD Time Spent With Patient Critical Care time: I spent a total of 35 minutes of critical care time on this patient's care tod ay; this time is exclusive of procedural time.
[2022-04-04] MEDS: PIPERACILLIN/TAZO 3.375 GM in SODIUM CHLORIDE 0.9% 100 ML IV ×2 (09:42→20:03)
[2022-04-04 11:41] LABS: Fractionated Inspired Oxygen 28; HCO3 ABG 21 mmol/L (22-26); Oxygen Saturation ABG 92 % (95-100); PCO2 ABG 39.6 mmHg (35-45); PO2 ABG 67 mmHg (80-100); TCO2 ABG 22 mmol/L (21-31); pH ABG 7.34 (7.35-7.45)
[2022-04-04] MEDS: carvediloL 3.125 MG TABLET PO (20:02)
--- NOTE | 2022-04-04 20:23 | PM.ICURNDS ---
- Date Patient Seen: 04/04/22 Time Patient Seen: 20:23 :: This patient was seen via real time interactive two-way audiovisual telecommunication. Note: Patient remains encephalopathic and now off precedex infusion. UOP ~200 mL during the day. ABG showed improved acidosis. On HFNC 40/27%. Had a large non bloody BM. Continue supportive care and follow up am labs. If renal function continues to deteriorate then will need to be transfer to critical access hospital for potential renal replacement therapy. D/w RN.
[2022-04-05] VITALS (64 sets, daily range): BP systolic 134–185; BP diastolic 72–102; PULSE 57–73; RESP 9–20; TEMP 36.3–36.8; O2SAT 93–99
[2022-04-05 04:47] LABS: Add Manual Diff / Slide Review NO; Basophils Absolute Auto 100 /uL (0-100); Basophils Percent Auto 1.1 % (0-2); Eosinophils Absolute Auto 100 /uL (0-450); Eosinophils Percent Auto 1.2 % (2-4); Hematocrit 22.4 % (41-53); Hemoglobin 7.1 g/dL (13.5-17.5); Lymphocytes Absolute Auto 1200 /uL (1100-4500); Lymphocytes Percent Auto 16.4 % (25-40); Mean Corpuscular HGB Conc 31.8 % (30-36); Mean Corpuscular Hemoglobin 30.9 PG (26-34); Mean Corpuscular Volume 97.4 fL (80-100); Monocytes Absolute Auto 500 /uL (0-900); Monocytes Percent Auto 6.3 % (3-14); Neutrophils Absolute Auto 5400 /uL (1500-7000); Platelet Count 109 X10^3/uL (150-400); Red Cell Distribution Width 20.3 % (11.6-14.8); White Blood Cell Count 7.2 X10^3/uL (4.5-11.0)
[2022-04-05 05:02] LABS: Ammonia (NH3) 65 umol/L (9-30)
[2022-04-05 05:03] LABS: Alanine Aminotransferase 14 IU/L (<50); Albumin Globulin Ratio 0.7 (1.0-2.8); Alkaline Phosphatase 187 U/L (38-126); Aspartate Aminotransferase 37 IU/L (17-59); BUN Creatinine Ratio 15.1 (6-22); Bilirubin Total 0.9 mg/dL (0.2-1.3); Bilirubin Unconjugated 0.3 mg/dL (0.0-1.1); Blood Urea Nitrogen 83 mg/dL (9-20); Carbon Dioxide 20 mmol/L (22-32); Chloride 110 mmol/L (98-107); Estimated Glomerular Filt Rate 11 mL/min (>60); Globulin 2.8 g/dL (1.7-4.1); Glucose 118 mg/dL (70-100); HEMOLYSIS < 15 (0-50); Magnesium 1.9 mg/dL (1.6-2.3); Potassium 5.2 mmol/L (3.4-5.1); Sodium 137 mmol/L (137-145); Total Protein 4.8 g/dL (6.3-8.2)
[2022-04-05 05:14] LABS: NT-proBNP (BNP-Adult 18+) 32400 pg/mL (<125); Troponin I 0.048 ng/mL (0.01-0.034)
[2022-04-05 05:42] LABS: Anisocytosis 2+; Poikilocytosis 1+
[2022-04-05 06:07] LABS: HCO3 ABG 21 mmol/L (22-26); Oxygen Saturation ABG 97 % (95-100); PCO2 ABG 39.5 mmHg (35-45); PO2 ABG 92 mmHg (80-100); TCO2 ABG 22 mmol/L (21-31); pH ABG 7.34 (7.35-7.45)
[2022-04-05 06:08] LABS: Fractionated Inspired Oxygen 28
[2022-04-05] MEDS: FOLIC ACID 1 MG TABLET PO (08:43)
[2022-04-05] MEDS: MULTIVITAMIN 1 TABLET 1 TAB PO (08:43)
[2022-04-05] MEDS: AMLODIPINE 5 MG TABLET 10 MG PO (08:43)
[2022-04-05] MEDS: chlordiazePOXIDE 25 MG CAPSULE PO (08:44)
[2022-04-05] MEDS: CYCLOSPORINE, MODIFIED 25 MG CAPSULE PO ×2 (08:44→21:39)
[2022-04-05] MEDS: RIFAXIMIN 550 MG TABLET PO ×2 (08:44→21:39)
[2022-04-05] MEDS: ASPIRIN 81 MG CHEW TAB PO (08:44)
[2022-04-05] MEDS: carvediloL 3.125 MG TABLET PO ×2 (08:44→21:39)
[2022-04-05] MEDS: LACTULOSE 20 GM/30 ML SOLUTION 30 GM PO ×4 (08:44→21:44)
[2022-04-05] MEDS: MYCOPHENOLATE MOFETIL 500 MG TABLET PO ×2 (08:44→21:39)
[2022-04-05] MEDS: PANTOPRAZOLE 40 MG VIAL IV ×2 (08:45→21:38)
[2022-04-05] MEDS: PIPERACILLIN/TAZO 3.375 GM in SODIUM CHLORIDE 0.9% 100 ML IV ×2 (09:28→21:37)
--- NOTE | 2022-04-05 09:48 | P.TELICUPN_ITS ---
Subjective Subjective Consent obtained for tele-net lead architect care: Yes Patient Location: ICU Provider location (State): [place] Other participants/roles: [facility] Current Medications Current Medications Medications: Home Medications allopurinol 100 mg tablet 100 mg PO DAILY 01/14/20 [History Confirmed 04/03/22] cyclosporine modified 25 mg capsule 25 mg PO BID 01/14/20 [History Confirmed 04/03/22] duloxetine 20 mg capsule,delayed release (Cymbalta) 20 mg PO DAILY 01/14/20 [History Confirmed 04/03/22] gabapentin 300 mg capsule 300 mg PO BID 01/14/20 [History Confirmed 04/03/22] lidocaine 5 % topical patch (Lidoderm) 1 patch topical DAILY PRN Back Pain 10/30 [History Confirmed 04/03/22] mycophenolate mofetil 500 mg tablet (CellCept) 500 mg PO BID 01/14/20 [History Confirmed 04/03/22] quetiapine 25 mg tablet (Seroquel) 25 mg PO BEDTIME 01/14/20 [History Confirmed 04/03/22] ursodiol 300 mg capsule 300 mg PO BID 01/14/20 [History Confirmed 04/03/22] pantoprazole 40 mg tablet,delayed release (Protonix) 40 mg PO DAILY #30 tabs 05/14/20 [Rx Confirmed 04/03/22] rifaximin 550 mg tablet (Xifaxan) 550 mg PO BID 09/20/20 [History Confirmed 04/03/22] metoprolol succinate 25 mg tablet,extended release 24 hr 25 mg PO BID 01/25/21 [History Confirmed 04/03/22] tamsulosin 0.4 mg capsule 0.4 mg PO BEDTIME 04/27/21 [History Confirmed 04/03/22] oxycodone 10 mg tablet 10 mg PO Q3HR PRN Pain, Severe (7-10) #60 tabs 05/11/21 [Rx Confirmed 04/03/22] lactulose 20 gram/30 mL oral solution 30 gm PO TID #11,000 mL 07/05/21 [Rx Confirmed 04/03/22] famotidine 20 mg tablet (Pepcid AC) 20 mg PO BEDTIME #120 tabs 07/06/21 [Rx Confirmed 04/03/22] furosemide 40 mg tablet (Lasix) 40 mg PO DAILY #5 tabs 01/17/22 [Rx Confirmed 03/01/22] cholecalciferol (vitamin D3) 25 mcg (1,000 unit) capsule 25 mcg PO DAILY 03/01/22 [History Confirmed 04/03/22] docusate sodium 250 mg capsule 250 mg PO BID 03/01/22 [History Confirmed 03/01/22] fentanyl 25 mcg/hr transdermal patch 1 patch transdermal Q72H 03/01/22 [History Confirmed 04/03/22] losartan 25 mg tablet 25 mg PO QAM 03/01/22 [History Confirmed 04/03/22] multivitamin,[id number] 1 tab PO DAILY 03/01/22 [History Confirmed 04/03/22] ondansetron 4 mg disintegrating tablet 4 mg PO Q8H PRN nausea / vomiting 03/01/22 [History Confirmed 04/03/22] prednisone 5 mg tablet 5 mg PO DAILY PRN gout flare 03/01/22 [History Confirmed 03/01/22] thiamine mononitrate (vit B1) 100 mg tablet 100 mg PO QAM 03/01/22 [History Confirmed 03/01/22] zinc sulfate 50 mg zinc (220 mg) capsule 50 mg PO QAM 03/01/22 [History Confirmed 03/01/22] aspirin 81 mg capsule,delayed release 81 mg PO DAILY 04/03/22 [History Confirmed 04/03/22] diphenhydramine HCl 12.5 mg/5 mL oral liquid 25 mg PO Q4-6H PRN Nausea 04/03/22 [History Confirmed 04/03/22] nifedipine 30 mg tablet,extended release 24 hr 30 mg PO DAILY 04/03/22 [History Confirmed 04/03/22] sucralfate 1 gram tablet 1 g PO ACHS 04/03/22 [History Confirmed 04/03/22] Visit Medications (administered) Generic Name Dose Route Start Last Admin Trade Name Freq PRN Reason Stop Dose Admin Acetaminophen 650 mg 04/01/22 02:38 04/02/22 23:25 Acetaminophen 325 Mg Tablet PO 650 mg Q6HR PRN Administration Fever/Mild Pain (1-3) Amlodipine Besylate 10 mg 04/03/22 21:25 04/05/22 08:43 Amlodipine 5 Mg Tablet PO 10 mg DAILY JUNIOR Administration Aspirin 81 mg 04/04/22 09:00 04/05/22 08:44 Aspirin 81 Mg Chew Tab PO 81 mg DAILY JUNIOR Administration Carvedilol 3.125 mg 04/04/22 21:00 04/05/22 08:44 Carvedilol 3.125 Mg Tablet PO 3.125 mg BID JUNIOR Administration Chlordiazepoxide HCl 25 mg 04/03/22 14:30 04/05/22 08:44 Chlordiazepoxide 25 Mg Capsule PO 25 mg BID JUNIOR Administration Cyclosporine 25 mg 04/01/22 21:00 04/05/22 08:44 Cyclosporine, Modified 25 Mg Capsule PO 25 mg BID JUNIOR Administration Folic Acid 1 mg 04/01/22 09:00 04/05/22 08:43 Folic Acid 1 Mg Tablet PO 1 mg DAILY JUNIOR Administration Heparin Sodium (Porcine) 50 unit 04/04/22 09:00 04/05/22 08:45 Heparin Flush (Cl/Picc/Mid-Line) 50 Unit/5 Ml Syringe IV 50 unit BID JUNIOR Administration Hydromorphone HCl 0.7 mg 04/01/22 17:24 04/02/22 02:42 Hydromorphone 0.5 Mg Inj IV 0.7 mg Q4H PRN Administration Pain, Moderate (4-6) dexmedeTOMIDine in 0.9 % NaCL 400 mcg in 100 mls @ 4.955 mls/hr 04/03/22 21:00 04/04/22 23:09 Precedex IV 0.2 mcg/kg/hr TITRATE JUNIOR 4.955 mls/hr Titration Protocol 0.2 MCG/KG/HR Piperacillin Sod/Tazobactam 100 mls @ 25 mls/hr 04/04/22 09:00 04/05/22 09:28 Sod 3.375 gm/ Sodium Chloride IV 25 mls/hr Q12H JUNIOR Administration Lactulose 30 gm 04/03/22 19:45 04/05/22 08:44 Lactulose 20 Gm/30 Ml Solution PO 30 gm QID JUNIOR Administration Lorazepam 0 mg 04/03/22 14:17 04/03/22 21:43 Lorazepam 2 Mg/Ml Inj IV 2 mg CIWAPRN PRN Administration Alcohol Withdrawal Protocol Multivitamins 1 tab 04/01/22 09:00 04/05/22 08:43 Multivitamin 1 Tablet PO 1 tab DAILY JUNIOR Administration Mycophenolate Mofetil 500 mg 04/01/22 21:00 04/05/22 08:44 Mycophenolate Mofetil 500 Mg Tablet PO 500 mg BID JUNIOR Administration Pantoprazole Sodium 40 mg 04/04/22 01:15 04/05/22 08:45 Pantoprazole 40 Mg Vial IV 40 mg BID JUNIOR Administration Rifaximin 550 mg 04/02/22 21:00 04/05/22 08:44 Rifaximin 550 Mg Tablet PO 550 mg BID JUNIOR Administration Objective Ventilator Parameters: Ventilator Settings FiO2 27 Labs Result Diagrams: 04/05/22 04:30 04/05/22 04:30 Labs: Laboratory Results - last 24 hr 04/04/22 04/05/22 04/05/22 11:27 04:30 04:30 WBC 7.2 RBC 2.30 L Hgb 7.1 L Hct 22.4 L MCV 97.4 MCH 30.9 MCHC 31.8 RDW 20.3 H Plt Count 109 L Neut % (Auto) 75.0 Lymph % (Auto) 16.4 L [place] % (Auto) 6.3 Eos % (Auto) 1.2 L Baso % (Auto) 1.1 Neut # (Auto) 5400 Lymph # (Auto) 1200 [place] # (Auto) 500 Eos # (Auto) 100 Baso # (Auto) 100 RBC Morphology See below Poikilocytosis 1+ H Anisocytosis 2+ H ABG pH 7.34 L ABG pCO2 39.6 ABG pO2 67 L ABG HCO3 21 L ABG Total CO2 22 ABG O2 Saturation 92 L ABG Base Excess -5.0 L FiO2 28 Sodium 137 Potassium 5.2 H Chloride 110 H Carbon Dioxide 20 L BUN 83 H Creatinine 5.48 H Estimated GFR 11 L BUN/Creatinine Ratio 15.1 Glucose 118 H Calcium 8.0 L Magnesium Total Bilirubin 0.9 Conjugated Bilirubin 0.0 Unconjugated Bilirubin 0.3 AST 37 ALT 14 Alkaline Phosphatase 187 H Ammonia Troponin I 0.048 H NT-Pro-B Natriuret Pep 78032 H Total Protein 4.8 L Albumin 2.0 L Globulin 2.8 Albumin/Globulin Ratio 0.7 L 04/05/22 04/05/22 04/05/22 04:30 04:30 05:48 WBC RBC Hgb Hct MCV MCH MCHC RDW Plt Count Neut % (Auto) Lymph % (Auto) [place] % (Auto) Eos % (Auto) Baso % (Auto) Neut # (Auto) Lymph # (Auto) [place] # (Auto) Eos # (Auto) Baso # (Auto) RBC Morphology Poikilocytosis Anisocytosis ABG pH 7.34 L ABG pCO2 39.5 ABG pO2 92 ABG HCO3 21 L ABG Total CO2 22 ABG O2 Saturation 97 ABG Base Excess -5.0 L FiO2 28 Sodium Potassium Chloride Carbon Dioxide BUN Creatinine Estimated GFR BUN/Creatinine Ratio Glucose Calcium Magnesium 1.9 Total Bilirubin Conjugated Bilirubin Unconjugated Bilirubin AST ALT Alkaline Phosphatase Ammonia 65 H Troponin I NT-Pro-B Natriuret Pep Total Protein Albumin Globulin Albumin/Globulin Ratio Exam Vital Signs (past 8 hours): - 04/05/22 02:00 04/05/22 02:01 04/05/22 02:01 Temperature Pulse Rate 64 64 Respiratory Rate 19 16 Blood Pressure 183/92 H Pulse Oximetry 98 98 Oxygen Delivery Method 04/05/22 02:30 04/05/22 03:00 04/05/22 03:00 Temperature 98.1 F Pulse Rate 60 64 Respiratory Rate 11 L 14 Blood Pressure Pulse Oximetry 97 98 Oxygen Delivery Method 04/05/22 03:01 04/05/22 03:01 04/05/22 04:00 Temperature Pulse Rate 63 Respiratory Rate 18 Blood Pressure 168/89 H Pulse Oximetry 98 Oxygen Delivery Method High Flow Nasal Cannula 04/05/22 04:00 04/05/22 03:30 04/05/22 04:00 Temperature 97.7 F Pulse Rate 66 Respiratory Rate 10 L Blood Pressure 174/96 H Pulse Oximetry 97 Oxygen Delivery Method 04/05/22 04:00 04/05/22 04:30 04/05/22 05:00 Temperature Pulse Rate 67 63 64 Respiratory Rate 9 L 12 12 Blood Pressure Pulse Oximetry 98 98 97 Oxygen Delivery Method 04/05/22 05:01 04/05/22 05:01 04/05/22 05:30 Temperature Pulse Rate 65 64 Respiratory Rate 12 12 Blood Pressure 134/72 Pulse Oximetry 97 97 Oxygen Delivery Method 04/05/22 06:00 04/05/22 06:01 04/05/22 06:01 Temperature Pulse Rate 63 64 Respiratory Rate 13 12 Blood Pressure 160/81 H Pulse Oximetry 99 99 Oxygen Delivery Method 04/05/22 05:00 04/05/22 03:30 04/05/22 07:01 Temperature Pulse Rate 65 66 63 Respiratory Rate 12 13 12 Blood Pressure 168/89 H 160/81 H Pulse Oximetry 97 99 98 Oxygen Delivery Method 04/05/22 07:30 04/05/22 08:00 04/05/22 08:00 Temperature Pulse Rate 64 65 Respiratory Rate 12 12 Blood Pressure 154/84 H Pulse Oximetry 98 97 Oxygen Delivery Method 04/05/22 08:44 04/05/22 08:45 04/05/22 09:31 Temperature 97.3 F L Pulse Rate 73 65 Respiratory Rate 16 Blood Pressure 154/84 H 154/84 H Pulse Oximetry 99 Oxygen Delivery Method Fraction of Inspired Oxygen 27 Oxygen Delivery Method High Flow Nasal Cannula Oxygen Flow Rate 40 Quality TeleICU VTE Deep Vein Thrombosis/Pulmonary Embolism Present on Admission: No Assessment & Plan Assessment & Plan narrative: patient seen with bedside nurse chart/labs/imaging reviewed 56 year old male admitted for acute encephalopathy acute resp failure acute chronic renal failure etoh withdrawal currently afebrile, HD stable sedated on precedex due to agitation/combativeness sat 97% on HFNC of 40/28% k 5.3 creat 5.48 suggest -neurochecks/seizure precautions -increase librium to 50mg tid -wean precedex as tolerated -thiamine/folate -monitor for re-feeding syndrome -keep sat above 88%, wean off of high flow as tolerated -check ekg -abx/check final cxs, if -ve can dc -tx hyperk -consider transfer for HD as pts urine output is minimal and if K doesnt improve -optimize bp control, sbp goal 140 or less -cellcept/cycolsportine, check levels -monitors ins/outs -replace lytes prn -keep glucose 140-180s -gi/dvt ppx -please call eICU if condition changes Time Spent With Patient Critical Care time: I spent a total of [55] minutes of critical care time on this patient's care today; this time is exclusive of procedural time.
[2022-04-05] MEDS: CALCIUM GLUCONATE 4.65 MEQ in SODIUM CHLORIDE 0.9% 50 ML 180 MEQ IV (11:34)
[2022-04-05] MEDS: DEXTROSE 50 % IN WATER 25 GM/50 ML SYRINGE IV (11:34)
[2022-04-05] MEDS: dexmedeTOMIDine in 0.9 % NaCL 400 MCG/100 ML PLAST..BAG IV (11:34)
[2022-04-05] MEDS: SODIUM POLYSTYRENE SULFON/SORB 15 GM/60 ML CUP PO (11:35)
--- NOTE | 2022-04-05 15:17 | DIET.CONS2 ---
Dietary Inpatient Consultation Note Admission Date: 04/01/2022 03:58 Pt with prolonged NPO status (2d) r/t altered mental status, unsafe for oral intake. Pt with inadequate PO intake first two days (~10%). If pt continues with NPO status by Sunday, recc initiating nutrition support via enteral route. Diet: 04/03/22 23:03 NPO Diet Diet Modifications: NPO Type: Strict Nutrition Percent Meal Consumed 10% 04/03/22 18:00 Electronically Signed by: Chica Jin 04/05/22 15:17 Clinical Dietitian [address] [address]
[2022-04-05] MEDS: chlordiazePOXIDE 25 MG CAPSULE 50 MG PO ×2 (15:21→21:41)
--- NOTE | 2022-04-05 17:15 | P.PN_ITS ---
Subjective Subjective Date Patient Seen: 04/05/22 Time Patient Seen: 17:00 Interval history: And states that he is starting to feel much better. Interacting appropriately and asking appropriate questions. Main complaint from the patient is that he is thirsty. Exam Vital Signs (past 8 hours): - 04/05/22 09:31 04/05/22 09:30 04/05/22 10:00 Pulse Rate 65 67 Respiratory Rate 16 12 Blood Pressure 154/84 H 150/78 H Pulse Oximetry 99 97 Oxygen Delivery Method 04/05/22 10:00 04/05/22 10:30 04/05/22 11:00 Pulse Rate 67 67 Respiratory Rate 12 12 Blood Pressure 138/74 Pulse Oximetry 96 96 Oxygen Delivery Method 04/05/22 11:00 04/05/22 11:30 04/05/22 12:00 Pulse Rate 66 67 Respiratory Rate 12 13 Blood Pressure 158/83 H Pulse Oximetry 96 95 Oxygen Delivery Method 04/05/22 12:00 04/05/22 12:19 04/05/22 12:00 Pulse Rate 66 66 Respiratory Rate 14 14 Blood Pressure 158/83 H Pulse Oximetry 95 94 Oxygen Delivery Method High Flow Nasal Cannula 04/05/22 12:30 04/05/22 13:00 04/05/22 13:00 Pulse Rate 66 66 Respiratory Rate 14 14 Blood Pressure 147/82 H Pulse Oximetry 95 95 Oxygen Delivery Method 04/05/22 13:30 04/05/22 14:00 04/05/22 14:00 Pulse Rate 67 67 Respiratory Rate 14 14 Blood Pressure 149/80 H Pulse Oximetry 95 95 Oxygen Delivery Method 04/05/22 14:10 04/05/22 14:30 04/05/22 15:00 Pulse Rate 67 69 Respiratory Rate 14 14 Blood Pressure 158/84 H Pulse Oximetry 98 95 Oxygen Delivery Method 04/05/22 15:00 04/05/22 15:30 04/05/22 16:00 Pulse Rate 64 64 Respiratory Rate 16 17 Blood Pressure 161/91 H Pulse Oximetry 93 93 Oxygen Delivery Method 04/05/22 16:00 04/05/22 16:30 Pulse Rate 62 64 Respiratory Rate 17 15 Blood Pressure Pulse Oximetry 93 93 Oxygen Delivery Method Fraction of Inspired Oxygen 27 Oxygen Delivery Method High Flow Nasal Cannula Oxygen Flow Rate 40 Narrative Exam Narrative: Patient arousable and interacting appropriately. Does not appear to be in any acute distress. HEENT:? Pupils equal reactive.? Trachea is midline.? Head is normocephalic. Neck nodes are nontender and nonpalpable. NG tube in place. Remains on oxygen. Cardiovascular:? Heart sounds S1 and S2 with no extra sounds or murmurs.? Peripheral pulses equal bilaterally. Respiratory:? General decreased air entry throughout the lung root but no wheezes or crackles. Gastrointestinal:? Multiple scars on abdomen and appearance of an incisional hernia.? Bowel sounds normal.? Nondistended.? Nontender. Skin:? Ashen color.? No new lesions or rashes. Musculoskeletal:? Able to move extremities volitionally.? Has restraints in place however. Neuro:? Sedated with a Precedex. Continuing to titrate down. Psych:? Requiring Precedex for agitation. Objective Labs Result Diagrams: 04/05/22 04:30 04/05/22 04:30 Labs: Laboratory Results - last 24 hr 04/05/22 04/05/22 04/05/22 04:30 04:30 04:30 WBC 7.2 RBC 2.30 L Hgb 7.1 L Hct 22.4 L MCV 97.4 MCH 30.9 MCHC 31.8 RDW 20.3 H Plt Count 109 L Neut % (Auto) 75.0 Lymph % (Auto) 16.4 L [place] % (Auto) 6.3 Eos % (Auto) 1.2 L Baso % (Auto) 1.1 Neut # (Auto) 5400 Lymph # (Auto) 1200 [place] # (Auto) 500 Eos # (Auto) 100 Baso # (Auto) 100 RBC Morphology See below Poikilocytosis 1+ H Anisocytosis 2+ H ABG pH ABG pCO2 ABG pO2 ABG HCO3 ABG Total CO2 ABG O2 Saturation ABG Base Excess FiO2 Sodium 137 Potassium 5.2 H Chloride 110 H Carbon Dioxide 20 L BUN 83 H Creatinine 5.48 H Estimated GFR 11 L BUN/Creatinine Ratio 15.1 Glucose 118 H Calcium 8.0 L Magnesium Total Bilirubin 0.9 Conjugated Bilirubin 0.0 Unconjugated Bilirubin 0.3 AST 37 ALT 14 Alkaline Phosphatase 187 H Ammonia 65 H Troponin I 0.048 H NT-Pro-B Natriuret Pep 01927 H Total Protein 4.8 L Albumin 2.0 L Globulin 2.8 Albumin/Globulin Ratio 0.7 L 04/05/22 04/05/22 04:30 05:48 WBC RBC Hgb Hct MCV MCH MCHC RDW Plt Count Neut % (Auto) Lymph % (Auto) [place] % (Auto) Eos % (Auto) Baso % (Auto) Neut # (Auto) Lymph # (Auto) [place] # (Auto) Eos # (Auto) Baso # (Auto) RBC Morphology Poikilocytosis Anisocytosis ABG pH 7.34 L ABG pCO2 39.5 ABG pO2 92 ABG HCO3 21 L ABG Total CO2 22 ABG O2 Saturation 97 ABG Base Excess -5.0 L FiO2 28 Sodium Potassium Chloride Carbon Dioxide BUN Creatinine Estimated GFR BUN/Creatinine Ratio Glucose Calcium Magnesium 1.9 Total Bilirubin Conjugated Bilirubin Unconjugated Bilirubin AST ALT Alkaline Phosphatase Ammonia Troponin I NT-Pro-B Natriuret Pep Total Protein Albumin Globulin Albumin/Globulin Ratio PFSH Medical History Anemia of chronic renal failure, stage 5 Cirrhosis of liver CKD (chronic kidney disease) Compression fracture Depression Former smoker GERD (gastroesophageal reflux disease) Gout Hepatitis C (~2011) History of vertebral compression fracture Hypertension Immunosuppression Liver cancer Medical marijuana use GUILLE (obstructive sleep apnea) Osteoporosis PAC (premature atrial contraction) Pain management contract agreement Paroxysmal atrial fibrillation PVC (premature ventricular contraction) Thrombocytopenia Surgical History H/O right wrist surgery History of biliary duct stent placement (01/2013) History of open reduction and internal fixation (ORIF) procedure (09/22/20) History of removal of retained hardware (01/25/21) History of right hip replacement Hx of appendectomy (~1979) Hx of cholecystectomy (~2003) Hx of elbow surgery (~2003) Hx of elbow surgery (~2007) Hx of fusion of cervical spine Hx of hernia repair Hx of shoulder surgery (~2012) Hx of tonsillectomy (~1969) Liver transplant recipient (11/24/11) Presence of left artificial elbow joint Family History Mother Renal failure Father Diabetes mellitus Congestive heart failure Social History household members: friend(s) Smoking Status: Former smoker alcohol intake: current Assessment & Plan Assessment & Plan narrative: 1. Severe anemia likely due to anemia of chronic disease, present on admission ?s/p 1 U PRBC for hg of 6.6 with appropriate response.? Hemoglobin is 7.1 today and decreasing. Will order transfusion and follow labs. ?Patient's last normal hemoglobin was in June 2021 when it was 13.9 and has slowly been trending down, and has been in the 7s since January of this year ?Patient has had a history of esophageal varices due to drinking in the past ?Continue PPI IV BID, consider surgical consultation for endoscopy though no evidence thus far of active bleeding. 2. chronic stage IV-V chronic kidney injury, present on admission ?Creatinine has been stable and 5.48 today, likely represents his new baseline.? However slowly increasing during the hospital stay.? Continue to follow. Continue to monitor urine output with Bradley catheter. 3. Acute on chronic diastolic heart failure present on admission ProBNP was 86949.? Now only decreased to 32,400 Continue furosemide 40 mg IV BID, monitoring creatinine closely. With blood pressure increase can add Bumex for further diuresis. Has Bradley, strict Is and Os 1000 ml fluid restriction Last echo was on February 01 of this year, he has a hyperdynamic left ventricle with ventricular hypertrophy and at that time his EF was 70 plus or minus 5% and an increase in the severity of mitral regurgitation over prior. 4. 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 ?Patient's mental status much diminished after 8 mg of PO dilaudid given in the ER. Improved with some narcan afterwards but then with severe pain. ?Continue some opiate pain medications, slowly increased given chronic pain. ?Elevated ammonia on admission, likely a component of hepatic encephalopathy as well.? Ammonia level today is 65 which is elevated from a level of 15..? Continue to follow. ?Continue rifaximin and lactulose. 5. History of liver transplant, chronic ?? Continue home medications in regard to this diagnosis. 6. Chronic back pain w/chronic continuous opioid dependence ?Continue to slowly increase pain medications given encephalopathy on admission. 7. Concern for urinary tract infection.? On ceftriaxone 1 g IV every 24 hours.? Urine is positive for Gram-negative bacilli currently.? This appears to be a contaminant.? Ceftriaxone being discontinued due to concern about hospital- acquired pneumonia 8. Hypertension not well controlled.? This has stabilized.? Continue home regular medication unless systolic less than 120 and then hold amlodipine in that case.. 9. Concern for pneumonia.? Has has patchy opacities on recent chest x-ray.? This would be a hospital-acquired pneumonia.? Will switch antibiotic from ceftriaxone to Zosyn.? 10. Troponin is consistently decreasing. 11. Continue to consistently monitor ABGs and other labs in the morning. Dispo: remains inpatient, disposition not entirely clear at this time but suspect home in the next few days. Code status: Full code as discussed with the patient who identifies his sister as? his surrogate and POA. Time Spent With Patient Critical Care time: I spent a total of [] minutes of critical care time on this patient's care today; this time is exclusive of procedural time. Quality VTE Deep Vein Thrombosis/Pulmonary Embolism Present on Admission: No
[2022-04-05] MEDS: BUMETANIDE 1 MG/4 ML VIAL IV (17:30)
--- NOTE | 2022-04-05 20:21 | PM.ICURNDS ---
- Date Patient Seen: 04/05/22 Time Patient Seen: 20:21 :: This patient was seen via real time interactive two-way audiovisual telecommunication. Note: Patient is awake and able to answer simple questions. On precedex infusion. Hb 7.1 and plan to transfuse 1 U PRBC. On protonix 40 mg IV BID. Recommend transfer to tertiary care for GI and nephrology consultation. D/w hospitalist and RN at bedside.
[2022-04-05 22:22] LABS: Cyclosporine, Blood 33 ng/mL (100-400)
[2022-04-06] VITALS (37 sets, daily range): BP systolic 160–197; BP diastolic 88–126; PULSE 47–68; RESP 12–27; TEMP 36.4; O2SAT 91–100
[2022-04-06] MEDS: dexmedeTOMIDine in 0.9 % NaCL 400 MCG/100 ML PLAST..BAG IV (00:17)
--- NOTE | 2022-04-06 01:16 | PC.NURSE ---
Pt given one unit of blood. Still on 0.2 mcg/kg/hr of precedex. Blood pressures slowly creeping up. Hospitalist notified about BP. No new orders were given. Will continue to monitor.
--- NOTE | 2022-04-06 05:46 | PC.NURSE ---
Pt pressures remain high. Pt becoming more agitated but redirectable. Pt removed NG tube. Precedex now at 0.8 mcg/kg/hr.
[2022-04-06 08:09] LABS: Add Manual Diff / Slide Review NO; Basophils Absolute Auto 0 /uL (0-100); Basophils Percent Auto 0.6 % (0-2); Eosinophils Absolute Auto 100 /uL (0-450); Eosinophils Percent Auto 2.2 % (2-4); Hematocrit 25.6 % (41-53); Hemoglobin 8.4 g/dL (13.5-17.5); Lymphocytes Absolute Auto 1700 /uL (1100-4500); Lymphocytes Percent Auto 24.9 % (25-40); Mean Corpuscular HGB Conc 32.8 % (30-36); Mean Corpuscular Hemoglobin 31.1 PG (26-34); Monocytes Absolute Auto 500 /uL (0-900); Neutrophils Absolute Auto 4400 /uL (1500-7000); Neutrophils Percent Auto 65.3 % (50-75); Platelet Count 96 X10^3/uL (150-400); White Blood Cell Count 6.8 X10^3/uL (4.5-11.0)
--- NOTE | 2022-04-06 08:10 | DI.RAD.S_ITS ---
PROCEDURE: XR CHEST 1V INDICATIONS: NG tube placement TECHNIQUE: One view of the chest was acquired. COMPARISON: [facility], CR, XR CHEST 1V, 04/03/2022, 23:04. FINDINGS: Surgical changes and devices: Left shoulder arthroplasty as well as nasogastric tube are again noted. Nasogastric tube is projecting over the gastric bubble. Partially visualized line is noted overlying the right axilla. Lungs and pleura: Bilateral pulmonary opacities are present. There is blunting of the costophrenic angles bilaterally. Overall appearance is slightly progressive. Mediastinum: Mediastinal contours appear normal. Heart size is enlarged. Bones and chest wall: No suspicious bony lesions. Overlying soft tissues appear unremarkable. IMPRESSION: Progressive appearance of bilateral pulmonary opacities as well as effusions. The latter are suggestive of pneumonia/atelectasis. Nasogastric tube as above. There is a partially visualized radiodense line overlying the right axilla. This could be external to the patient is not fully included within the field of view. However, if this has been an attempted right PICC line, forward advancement is recommended. Dictated by: Abbi Ordonez M.D. on 04/06/2022 at 8:50 Approved by: Abbi Ordonez M.D. on 04/06/2022 at 8:55
[2022-04-06 08:33] LABS: Alanine Aminotransferase 19 IU/L (<50); Albumin 2.1 g/dL (3.5-5.0); Albumin Globulin Ratio 0.8 (1.0-2.8); Alkaline Phosphatase 226 U/L (38-126); Aspartate Aminotransferase 52 IU/L (17-59); BUN Creatinine Ratio 14.6 (6-22); Bilirubin Total 0.9 mg/dL (0.2-1.3); Blood Urea Nitrogen 84 mg/dL (9-20); Carbon Dioxide 18 mmol/L (22-32); Chloride 113 mmol/L (98-107); Estimated Glomerular Filt Rate 11 mL/min (>60); Globulin 2.8 g/dL (1.7-4.1); Glucose 141 mg/dL (70-100); HEMOLYSIS < 15 (0-50); Potassium 4.4 mmol/L (3.4-5.1); Sodium 140 mmol/L (137-145); Total Protein 4.9 g/dL (6.3-8.2)
[2022-04-06 08:34] LABS: Alanine Aminotransferase 19 IU/L (<50); Albumin 2.1 g/dL (3.5-5.0); Albumin Globulin Ratio 0.8 (1.0-2.8); Alkaline Phosphatase 227 U/L (38-126); Aspartate Aminotransferase 50 IU/L (17-59); Bilirubin Total 0.9 mg/dL (0.2-1.3); Bilirubin Unconjugated 0.3 mg/dL (0.0-1.1); Globulin 2.8 g/dL (1.7-4.1); HEMOLYSIS < 15 (0-50); Total Protein 4.9 g/dL (6.3-8.2)
[2022-04-06] MEDS: dexmedeTOMIDine in 0.9 % NaCL 400 MCG/100 ML PLAST..BAG 19.82 MCG IV (09:17)
--- NOTE | 2022-04-06 10:12 | P.TELICUPN_ITS ---
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 care: Yes Patient Location: ICU Provider location (State): [place] Other participants/roles: [facility] Current Medications Current Medications Medications: Home Medications allopurinol 100 mg tablet 100 mg PO DAILY 01/14/20 [History Confirmed 04/03/22] cyclosporine modified 25 mg capsule 25 mg PO BID 01/14/20 [History Confirmed 04/03/22] duloxetine 20 mg capsule,delayed release (Cymbalta) 20 mg PO DAILY 01/14/20 [History Confirmed 04/03/22] gabapentin 300 mg capsule 300 mg PO BID 01/14/20 [History Confirmed 04/03/22] lidocaine 5 % topical patch (Lidoderm) 1 patch topical DAILY PRN Back Pain 01/14/20 [History Confirmed 04/03/22] mycophenolate mofetil 500 mg tablet (CellCept) 500 mg PO BID 01/14/20 [History Confirmed 04/03/22] quetiapine 25 mg tablet (Seroquel) 25 mg PO BEDTIME 01/14/20 [History Confirmed 04/03/22] ursodiol 300 mg capsule 300 mg PO BID 01/14/20 [History Confirmed 04/03/22] pantoprazole 40 mg tablet,delayed release (Protonix) 40 mg PO DAILY #30 tabs 05/14/20 [Rx Confirmed 04/03/22] rifaximin 550 mg tablet (Xifaxan) 550 mg PO BID 09/20/20 [History Confirmed 04/03/22] metoprolol succinate 25 mg tablet,extended release 24 hr 25 mg PO BID 01/25/21 [History Confirmed 04/03/22] tamsulosin 0.4 mg capsule 0.4 mg PO BEDTIME 04/27/21 [History Confirmed 04/03/22] oxycodone 10 mg tablet 10 mg PO Q3HR PRN Pain, Severe (7-10) #60 tabs 05/11/21 [Rx Confirmed 04/03/22] lactulose 20 gram/30 mL oral solution 30 gm PO TID #11,000 mL 07/05/21 [Rx Confirmed 04/03/22] famotidine 20 mg tablet (Pepcid AC) 20 mg PO BEDTIME #120 tabs 07/06/21 [Rx Confirmed 04/03/22] furosemide 40 mg tablet (Lasix) 40 mg PO DAILY #5 tabs 01/17/22 [Rx Confirmed 04/05/22] cholecalciferol (vitamin D3) 25 mcg (1,000 unit) capsule 25 mcg PO DAILY 03/01/22 [History Confirmed 04/03/22] docusate sodium 250 mg capsule 250 mg PO BID 03/01/22 [History Confirmed 04/05/22] fentanyl 25 mcg/hr transdermal patch 1 patch transdermal Q72H 03/01/22 [History Confirmed 04/03/22] losartan 25 mg tablet 25 mg PO QAM 03/01/22 [History Confirmed 04/03/22] multivitamin,af-dect-nebbeosv 1 tab PO DAILY 03/01/22 [History Confirmed 04/03/22] ondansetron 4 mg disintegrating tablet 4 mg PO Q8H PRN nausea / vomiting 03/01/22 [History Confirmed 04/03/22] prednisone 5 mg tablet 5 mg PO DAILY PRN gout flare 03/01/22 [History Confirmed 04/05/22] thiamine mononitrate (vit B1) 100 mg tablet 100 mg PO QAM 03/01/22 [History Confirmed 04/05/22] zinc sulfate 50 mg zinc (220 mg) capsule 50 mg PO QAM 03/01/22 [History Confirmed 04/05/22] aspirin 81 mg capsule,delayed release 81 mg PO DAILY 04/03/22 [History Confirmed 04/03/22] diphenhydramine HCl 12.5 mg/5 mL oral liquid 25 mg PO Q4-6H PRN Nausea 04/03/22 [History Confirmed 04/03/22] nifedipine 30 mg tablet,extended release 24 hr 30 mg PO DAILY 04/03/22 [History Confirmed 04/03/22] sucralfate 1 gram tablet 1 g PO ACHS 04/03/22 [History Confirmed 04/03/22] Visit Medications (administered) Generic Name Dose Route Start Last Admin Trade Name Freq PRN Reason Stop Dose Admin Acetaminophen 650 mg 04/01/22 02:38 04/02/22 23:25 Acetaminophen 325 Mg Tablet PO 650 mg Q6HR PRN Administration Fever/Mild Pain (1-3) Amlodipine Besylate 10 mg 04/03/22 21:25 04/05/22 08:43 Amlodipine 5 Mg Tablet PO 10 mg DAILY JUNIOR Administration Aspirin 81 mg 04/04/22 09:00 04/05/22 08:44 Aspirin 81 Mg Chew Tab PO 81 mg DAILY JUNIOR Administration Carvedilol 3.125 mg 04/04/22 21:00 04/05/22 21:39 Carvedilol 3.125 Mg Tablet PO 3.125 mg BID JUNIOR Administration Chlordiazepoxide HCl 50 mg 04/05/22 15:00 04/05/22 21:41 Chlordiazepoxide 25 Mg Capsule PO 50 mg TID JUNIOR Administration Cyclosporine 25 mg 04/01/22 21:00 04/05/22 21:39 Cyclosporine, Modified 25 Mg Capsule PO 25 mg BID JUNIOR Administration Folic Acid 1 mg 04/01/22 09:00 04/05/22 08:43 Folic Acid 1 Mg Tablet PO 1 mg DAILY JUNIOR Administration Heparin Sodium (Porcine) 50 unit 04/04/22 09:00 04/05/22 21:37 Heparin Flush (Cl/Picc/Mid-Line) 50 Unit/5 Ml Syringe IV 50 unit BID JUNIOR Administration Hydromorphone HCl 0.7 mg 04/01/22 17:24 04/02/22 02:42 Hydromorphone 0.5 Mg Inj IV 0.7 mg Q4H PRN Administration Pain, Moderate (4-6) dexmedeTOMIDine in 0.9 % NaCL 400 mcg in 100 mls @ 4.955 mls/hr 04/03/22 21:00 04/06/22 09:17 Precedex IV 0.8 mcg/kg/hr TITRATE JUNIOR 19.82 mls/hr Administration Protocol 0.2 MCG/KG/HR Piperacillin Sod/Tazobactam 100 mls @ 25 mls/hr 04/04/22 09:00 04/06/22 01:40 Sod 3.375 gm/ Sodium Chloride IV Infused Q12H [facility] Infusion Lactulose 30 gm 04/03/22 19:45 04/05/22 21:44 Lactulose 20 Gm/30 Ml Solution PO 30 gm QID [facility] Administration Lorazepam 0 mg 04/03/22 14:17 04/03/22 21:43 Lorazepam 2 Mg/Ml Inj IV 2 mg CIWAPRN PRN Administration Alcohol Withdrawal Protocol Multivitamins 1 tab 04/01/22 09:00 04/05/22 08:43 Multivitamin 1 Tablet PO 1 tab DAILY [facility] Administration Mycophenolate Mofetil 500 mg 04/01/22 21:00 04/05/22 21:39 Mycophenolate Mofetil 500 Mg Tablet PO 500 mg BID JUNIOR Administration Pantoprazole Sodium 40 mg 04/04/22 01:15 04/05/22 21:38 Pantoprazole 40 Mg Vial IV 40 mg BID JUNIOR Administration Rifaximin 550 mg 04/02/22 21:00 04/05/22 21:39 Rifaximin 550 Mg Tablet PO 550 mg BID JUNIOR Administration Objective Ventilator Parameters: Ventilator Settings FiO2 27 Labs Result Diagrams: 04/06/22 08:00 04/06/22 08:00 Labs: Laboratory Results - last 24 hr 04/01/22 04/04/22 04/05/22 00:30 02:00 18:50 WBC RBC Hgb Hct MCV MCH MCHC RDW Plt Count Neut % (Auto) Lymph % (Auto) [place] % (Auto) Eos % (Auto) Baso % (Auto) Neut # (Auto) Lymph # (Auto) [place] # (Auto) Eos # (Auto) Baso # (Auto) Sodium Potassium Chloride Carbon Dioxide BUN Creatinine Estimated GFR BUN/Creatinine Ratio Glucose Calcium Magnesium Total Bilirubin Conjugated Bilirubin Unconjugated Bilirubin AST ALT Alkaline Phosphatase Total Protein Albumin Globulin Albumin/Globulin Ratio Cyclosporine 33 L Blood Type A Positive Antibody Screen Negative Crossmatch See Detail See Detail 04/06/22 04/06/22 04/06/22 08:00 08:00 08:00 WBC 6.8 RBC 2.70 L Hgb 8.4 L Hct 25.6 L MCV 95.0 MCH 31.1 MCHC 32.8 RDW 20.0 H Plt Count 96 L Neut % (Auto) 65.3 Lymph % (Auto) 24.9 L [place] % (Auto) 7.0 Eos % (Auto) 2.2 Baso % (Auto) 0.6 Neut # (Auto) 4400 Lymph # (Auto) 1700 [place] # (Auto) 500 Eos # (Auto) 100 Baso # (Auto) 0 Sodium 140 Potassium 4.4 Chloride 113 H Carbon Dioxide 18 L BUN 84 H Creatinine 5.75 H Estimated GFR 11 L BUN/Creatinine Ratio 14.6 Glucose 141 H Calcium 8.0 L Magnesium 2.0 Total Bilirubin 0.9 0.9 Conjugated Bilirubin 0.0 Unconjugated Bilirubin 0.3 AST 50 52 ALT 19 19 Alkaline Phosphatase 227 H 226 H Total Protein 4.9 L 4.9 L Albumin 2.1 L 2.1 L Globulin 2.8 2.8 Albumin/Globulin Ratio 0.8 L 0.8 L Cyclosporine Blood Type Antibody Screen Crossmatch Exam Vital Signs (past 8 hours): - 04/06/22 03:00 04/06/22 03:08 04/06/22 03:08 Temperature Pulse Rate 58 L 60 Respiratory Rate 15 17 Blood Pressure 168/93 H Pulse Oximetry 96 94 Oxygen Delivery Method 04/06/22 04:00 04/06/22 04:00 04/06/22 04:00 Temperature 97.5 F L Pulse Rate 60 Respiratory Rate 21 Blood Pressure 180/99 H Pulse Oximetry 100 Oxygen Delivery Method Room Air 04/06/22 05:00 04/06/22 05:00 04/06/22 05:03 Temperature Pulse Rate 58 L Respiratory Rate 14 Blood Pressure 197/101 H 183/105 H Pulse Oximetry 99 Oxygen Delivery Method 04/06/22 05:03 04/06/22 05:33 04/06/22 05:33 Temperature Pulse Rate 56 L 58 L Respiratory Rate 15 14 Blood Pressure 178/99 H Pulse Oximetry 100 99 Oxygen Delivery Method 04/06/22 06:00 04/06/22 06:01 04/06/22 06:01 Temperature Pulse Rate 57 L 57 L Respiratory Rate 15 15 Blood Pressure 176/88 H Pulse Oximetry 99 99 Oxygen Delivery Method 04/06/22 07:00 04/06/22 07:01 04/06/22 07:01 Temperature Pulse Rate 54 L 58 L Respiratory Rate 16 15 Blood Pressure 178/112 H Pulse Oximetry 99 99 Oxygen Delivery Method 04/06/22 08:00 04/06/22 08:01 04/06/22 08:01 Temperature Pulse Rate 50 L 50 L Respiratory Rate 17 16 Blood Pressure 181/108 H Pulse Oximetry 100 100 Oxygen Delivery Method Fraction of Inspired Oxygen 27 Oxygen Delivery Method Room Air Oxygen Flow Rate 40 Quality TeleICU VTE Deep Vein Thrombosis/Pulmonary Embolism Present on Admission: No Assessment & Plan Assessment & Plan narrative: patient seen with bedside nurse chart/labs/imaging reviewed no acute events overnight received 1 unit of prbc for a hgb of 7 56 year old male admitted for acute encephalopathy acute resp failure acute chronic renal failure etoh withdrawal currently afebrile, HD stable remains on precedex hr 40-50s suggest -neurochecks/seizure precautions -continue librium to 50mg tid --dc precedex due to bradycardia -start seroquel 50mg q12 if qtc less than 500 -thiamine/folate -monitor for re-feeding syndrome -keep sat above 88%, wean off of high flow as tolerated -continue abx/check final cxs, if -ve can dc -hyperK resolved however urine output is minimal, creat worse -serial cbc/coags transfuse prn, does not appear to have active bleeding -pp bid -goals of care and severity to be addressed if family ops for full support pt needs HD in which case suggest transfer -optimize bp control, sbp goal 140 or less -cellcept/cycolsportine, -monitors ins/outs -replace lytes prn -keep glucose 140-180s -gi/dvt ppx -please call eICU if condition changes Time Spent With Patient Critical Care time: I spent a total of [] minutes of critical care time on this patient's care today; this time is exclusive of procedural time.
--- NOTE | 2022-04-06 10:35 | PM.PN.1 ---
Subjective Subjective Date Patient Seen: 04/06/22 Time Patient Seen: 10:00 Interval history: Patient doing poorly. Unable to palpate a pulse. Unable to register blood pressure. Patient breathing on his own. As per previous documentation on this patient in February of 2022 the patient was do not resuscitate with okay to intubate. Based on the patient's medical status, and very poor prognosis, this code status will be in place with do not resuscitate. With the inability to maintain the blood pressure or an adequate heart rate with medical management without resuscitation, the patient has been placed in status of comfort care only. Exam Vital Signs (past 8 hours): - 04/06/22 03:00 04/06/22 03:08 04/06/22 03:08 Temperature Pulse Rate 58 L 60 Respiratory Rate 15 17 Blood Pressure 168/93 H Pulse Oximetry 96 94 Oxygen Delivery Method 04/06/22 04:00 04/06/22 04:00 04/06/22 04:00 Temperature 97.5 F L Pulse Rate 60 Respiratory Rate 21 Blood Pressure 180/99 H Pulse Oximetry 100 Oxygen Delivery Method Room Air 04/06/22 05:00 04/06/22 05:00 04/06/22 05:03 Temperature Pulse Rate 58 L Respiratory Rate 14 Blood Pressure 197/101 H 183/105 H Pulse Oximetry 99 Oxygen Delivery Method 04/06/22 05:03 04/06/22 05:33 04/06/22 05:33 Temperature Pulse Rate 56 L 58 L Respiratory Rate 15 14 Blood Pressure 178/99 H Pulse Oximetry 100 99 Oxygen Delivery Method 04/06/22 06:00 04/06/22 06:01 04/06/22 06:01 Temperature Pulse Rate 57 L 57 L Respiratory Rate 15 15 Blood Pressure 176/88 H Pulse Oximetry 99 99 Oxygen Delivery Method 04/06/22 07:00 04/06/22 07:01 04/06/22 07:01 Temperature Pulse Rate 54 L 58 L Respiratory Rate 16 15 Blood Pressure 178/112 H Pulse Oximetry 99 99 Oxygen Delivery Method 04/06/22 08:00 04/06/22 08:01 04/06/22 08:01 Temperature Pulse Rate 50 L 50 L Respiratory Rate 17 16 Blood Pressure 181/108 H Pulse Oximetry 100 100 Oxygen Delivery Method Fraction of Inspired Oxygen 27 Oxygen Delivery Method Room Air Oxygen Flow Rate 40 Narrative Exam Narrative: Patient is not arousable .? Patient resting comfortably and not requiring O2 supplementation. HEENT:? Trachea is midline.? Head is normocephalic.? Neck nodes are nontender and nonpalpable.? NG tube in place.? Cardiovascular:? Heart sounds S1 and S2 with no extra sounds or murmurs.? Respiratory:? General decreased air entry throughout the lung root but no wheezes or crackles. Gastrointestinal:? Multiple scars on abdomen and appearance of an incisional hernia.? Bowel sounds normal.? Nondistended.? Nontender. Skin:? Ashen color.? No new lesions or rashes. Musculoskeletal:? Unable to respond to commands and therefore cannot assess volitional movement of extremities. Neuro:? Decreased level of consciousness. Psych:? Requiring Precedex for agitation. Objective Labs Result Diagrams: 04/06/22 08:00 04/06/22 08:00 Labs: Laboratory Results - last 24 hr 04/01/22 04/04/22 04/05/22 00:30 02:00 18:50 WBC RBC Hgb Hct MCV MCH MCHC RDW Plt Count Neut % (Auto) Lymph % (Auto) [place] % (Auto) Eos % (Auto) Baso % (Auto) Neut # (Auto) Lymph # (Auto) [place] # (Auto) Eos # (Auto) Baso # (Auto) Sodium Potassium Chloride Carbon Dioxide BUN Creatinine Estimated GFR BUN/Creatinine Ratio Glucose Calcium Magnesium Total Bilirubin Conjugated Bilirubin Unconjugated Bilirubin AST ALT Alkaline Phosphatase Total Protein Albumin Globulin Albumin/Globulin Ratio Cyclosporine 33 L Blood Type A Positive Antibody Screen Negative Crossmatch See Detail See Detail 04/06/22 04/06/22 04/06/22 08:00 08:00 08:00 WBC 6.8 RBC 2.70 L Hgb 8.4 L Hct 25.6 L MCV 95.0 MCH 31.1 MCHC 32.8 RDW 20.0 H Plt Count 96 L Neut % (Auto) 65.3 Lymph % (Auto) 24.9 L [place] % (Auto) 7.0 Eos % (Auto) 2.2 Baso % (Auto) 0.6 Neut # (Auto) 4400 Lymph # (Auto) 1700 [place] # (Auto) 500 Eos # (Auto) 100 Baso # (Auto) 0 Sodium 140 Potassium 4.4 Chloride 113 H Carbon Dioxide 18 L BUN 84 H Creatinine 5.75 H Estimated GFR 11 L BUN/Creatinine Ratio 14.6 Glucose 141 H Calcium 8.0 L Magnesium 2.0 Total Bilirubin 0.9 0.9 Conjugated Bilirubin 0.0 Unconjugated Bilirubin 0.3 AST 50 52 ALT 19 19 Alkaline Phosphatase 227 H 226 H Total Protein 4.9 L 4.9 L Albumin 2.1 L 2.1 L Globulin 2.8 2.8 Albumin/Globulin Ratio 0.8 L 0.8 L Cyclosporine Blood Type Antibody Screen Crossmatch [facility] Medical History Anemia of chronic renal failure, stage 5 Cirrhosis of liver CKD (chronic kidney disease) Compression fracture Depression Former smoker GERD (gastroesophageal reflux disease) Gout Hepatitis C (~2011) History of vertebral compression fracture Hypertension Immunosuppression Liver cancer Medical marijuana use GUILLE (obstructive sleep apnea) Osteoporosis PAC (premature atrial contraction) Pain management contract agreement Paroxysmal atrial fibrillation PVC (premature ventricular contraction) Thrombocytopenia Surgical History H/O right wrist surgery History of biliary duct stent placement (01/2013) History of open reduction and internal fixation (ORIF) procedure (09/22/20) History of removal of retained hardware (01/25/21) History of right hip replacement Hx of appendectomy (~1979) Hx of cholecystectomy (~2003) Hx of elbow surgery (~2003) Hx of elbow surgery (~2007) Hx of fusion of cervical spine Hx of hernia repair Hx of shoulder surgery (~2012) Hx of tonsillectomy (~1969) Liver transplant recipient (11/24/11) Presence of left artificial elbow joint Family History Mother Renal failure Father Diabetes mellitus Congestive heart failure Social History household members: friend(s) Smoking Status: Former smoker alcohol intake: current Assessment & Plan Assessment & Plan narrative: 1. Severe anemia likely due to anemia of chronic disease, present on admission ?s/p 1 U PRBC for hg of 6.6 with appropriate response.? Hemoglobin is 8.4 today post transfusion.? ?Patient's last normal hemoglobin was in June 2021 when it was 13.9 and has slowly been trending down, and has been in the 7s since January of this year ?Patient has had a history of esophageal varices due to drinking in the past. On pantoprazole IV b.i.d. 2. chronic stage IV-V chronic kidney injury, present on admission ?Creatinine has been stable and 5.75 today.? However slowly increasing during the hospital stay.? Continue to monitor urine output with Bradley catheter. It has not been adequate. 3. Acute on chronic diastolic heart failure present on admission ProBNP was 10036.? Now only decreased to 32,400 yesterday. Continue furosemide 40 mg IV BID, monitoring creatinine closely.? With blood pressure increase can add Bumex for further diuresis. Has Bradley, strict Is and Os 1000 ml fluid restriction Last echo was on February 01 of this year, he has a hyperdynamic left ventricle with ventricular hypertrophy and at that time his EF was 70 plus or minus 5% and an increase in the severity of mitral regurgitation over prior. 4. 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 ?Patient's mental status much diminished after 8 mg of PO dilaudid given in the ER. Improved with some narcan afterwards but then with severe pain. ?Continue some opiate pain medications, slowly increased given chronic pain. ?Elevated ammonia on admission, likely a component of hepatic encephalopathy as well.? Ammonia level today is 65 which is elevated from a level of 15. ?Continue rifaximin and lactulose. 5. History of liver transplant, chronic ?? Continue home medications in regard to this diagnosis. 6. Chronic back pain w/chronic continuous opioid dependence ?Continue to slowly increase pain medications given encephalopathy on admission. 7. Concern for urinary tract infection.? On ceftriaxone 1 g IV every 24 hours.? Urine is positive for Gram-negative bacilli currently.? This appears to be a contaminant.? Ceftriaxone being discontinued due to concern about hospital-acquired pneumonia and has been transition to his Zosyn. 8. Hypertension not well controlled.? This has stabilized.? Continue home regular medication unless systolic less than 120 and then hold amlodipine in that case.. 9. Concern for pneumonia.? Has has patchy opacities on recent chest x-ray.? This would be a hospital-acquired pneumonia.? Will switch antibiotic from ceftriaxone to Zosyn.? 10. Troponin is consistently decreasing during this admission. Dispo: remains inpatient, disposition not entirely clear. Prognosis is very poor. Code status: Based on previous code status of do not resuscitate with intubation only, patient was transition to do not resuscitate. Patient's intake designated POA was contacted and advised to call the hospital and talk to me. At this time based on patient's progress since he is comfort care only. Time Spent With Patient Critical Care time: I spent a total of [] minutes of critical care time on this patient's care today; this time is exclusive of procedural time. Quality VTE Deep Vein Thrombosis/Pulmonary Embolism Present on Admission: No
--- NOTE | 2022-04-06 12:51 | PC.NURSE ---
Addendum entered by Liss Carbone R.N. 04/06/22 15:28: Pressadex stopped as comfort care measures are put into action. Restraints removed and morphine drip started at 1315. Original Note: Pt has been placed on comfort care per Dr. Garg at approx. 1130. Pt's tele, oximeter and NG tube have been removed at 1300. Pt remains on pressadex and in restraints to prevent him from pulling at lines. Bradley catheter and PICC line remain in place. Pt has been repositioned with a pillow under his left hip.
[2022-04-06] MEDS: diphenhydrAMINE 50 MG/ML VIAL 25 MG IV (13:08)
[2022-04-06] MEDS: MORPHINE 10 MG/0.5 ML ORAL SYRINGE PO ×2 (14:15→21:43)
[2022-04-06] MEDS: MORPHINE 50 MG in DEXTROSE 5 % IN WATER 50 ML IV (15:22)
--- NOTE | 2022-04-06 16:39 | CM.DPNOTE ---
Discharge Planning Note: Patient now on comfort care and agonal breathing present. Earlier today he had been calling out and agitated. Spoke with estranged sister Leigh Guidry (Kenny Butler [phone]). She has had little to no contact with patient and states his mother has a restraining order out on him. There is limited resources apparently and no DPOA for healthcare or financial that sister knows of. She had spoken with nursing earlier. This DCP spoke with her about disposition of body after will go to [facility]. She states she will get in touch with them. Plan: Pt expected to soon. Follow and contact daughter as needed. Ailin Koo RN/DCP.
--- NOTE | 2022-04-06 17:17 | PC.NURSE ---
Dayshift note with pts rapid decline, Dr Mosqueda at bedside, pt is now DNR/DNI, comfort care orders placed. NG tube removed (after replacing at start of shift, pt had removed during night shift manager). Precedex replaced with Morphine gtt, restraints discontinued, vitals changed to daily, will continue to monitor
[2022-04-06] MEDS: MORPHINE IV (18:13)
[2022-04-06] MEDS: DEXTROSE 5% IV (18:13)
[2022-04-06] MEDS: WATER IV (18:13)
[2022-04-06] MEDS: SCOPOLAMINE 1 PATCH TOP (21:58)
[2022-04-07] VITALS (18 sets, daily range): PULSE 63–103; O2SAT 42–89
[2022-04-07] MEDS: MORPHINE 10 MG/0.5 ML ORAL SYRINGE PO ×5 (01:36→15:48)
[2022-04-07] MEDS: WATER IV ×2 (04:09→11:04)
[2022-04-07] MEDS: MORPHINE IV ×2 (04:09→11:04)
[2022-04-07] MEDS: DEXTROSE 5% IV ×2 (04:09→11:04)
--- NOTE | 2022-04-07 05:51 | PC.NURSE ---
Pt kept comfortable throughout night. Morphine drip at 12mg/hr. 2 doses of oral morphine given. Pt changed once, along with linens.
--- NOTE | 2022-04-07 08:39 | P.PN_ITS ---
Subjective Subjective Date Patient Seen: 04/07/22 Time Patient Seen: 08:30 Interval history: Patient beginning to have rattle and mother will come and visit 1 last time. Mother and sister visited last night. No new nursing concerns. Patient is comfortable. Exam Vital Signs (past 8 hours): - 04/07/22 07:00 Oxygen Delivery Method Room Air Fraction of Inspired Oxygen 27 Oxygen Delivery Method Room Air Oxygen Flow Rate 40 Narrative Exam Narrative: Patient is not arousable .? Patient resting comfortably and not requiring O2 supplementation. HEENT:?? Trachea is midline.? Head is normocephalic.? Cardiovascular:? Heart sounds S1 and S2 with no extra sounds or murmurs.? Respiratory:? General decreased air entry throughout the lung root but no wheezes or crackles. Gastrointestinal:? Multiple scars on abdomen and appearance of an incisional hernia.? Bowel sounds normal.? Skin:? Ashen color.? No new lesions or rashes. Musculoskeletal:? Unable to respond to commands and therefore cannot assess volitional movement of extremities. Neuro:? Decreased level of consciousness. Psych:? Requiring morphine infusion for sedation. Objective Labs Result Diagrams: 04/06/22 08:00 04/06/22 08:00 Labs: Laboratory Results - last 24 hr 04/06/22 04/06/22 08:00 08:00 Sodium 140 Potassium 4.4 Chloride 113 H Carbon Dioxide 18 L BUN 84 H Creatinine 5.75 H Estimated GFR 11 L BUN/Creatinine Ratio 14.6 Glucose 141 H Calcium 8.0 L Magnesium 2.0 Total Bilirubin 0.9 0.9 Conjugated Bilirubin 0.0 Unconjugated Bilirubin 0.3 AST 50 52 ALT 19 19 Alkaline Phosphatase 227 H 226 H Total Protein 4.9 L 4.9 L Albumin 2.1 L 2.1 L Globulin 2.8 2.8 Albumin/Globulin Ratio 0.8 L 0.8 L PFSH Medical History Anemia of chronic renal failure, stage 5 Cirrhosis of liver CKD (chronic kidney disease) Compression fracture Depression Former smoker GERD (gastroesophageal reflux disease) Gout Hepatitis C (~2011) History of vertebral compression fracture Hypertension Immunosuppression Liver cancer Medical marijuana use GUILLE (obstructive sleep apnea) Osteoporosis PAC (premature atrial contraction) Pain management contract agreement Paroxysmal atrial fibrillation PVC (premature ventricular contraction) Thrombocytopenia Surgical History H/O right wrist surgery History of biliary duct stent placement (01/2013) History of open reduction and internal fixation (ORIF) procedure (09/22/20) History of removal of retained hardware (01/25/21) History of right hip replacement Hx of appendectomy (~1979) Hx of cholecystectomy (~2003) Hx of elbow surgery (~2003) Hx of elbow surgery (~2007) Hx of fusion of cervical spine Hx of hernia repair Hx of shoulder surgery (~2012) Hx of tonsillectomy (~1969) Liver transplant recipient (11/24/11) Presence of left artificial elbow joint Family History Mother Renal failure Father Diabetes mellitus Congestive heart failure Social History household members: friend(s) Smoking Status: Former smoker alcohol intake: current Assessment & Plan Assessment & Plan narrative: 1. Severe anemia likely due to anemia of chronic disease, present on admission ?s/p 1 U PRBC for hg of 6.6 with appropriate response.? Hemoglobin is 8.4 today post transfusion.? ?Patient's last normal hemoglobin was in June 2021 when it was 13.9 and has slowly been trending down, and has been in the 7s since January of this year ?Patient has had a history of esophageal varices due to drinking in the past. Patient is comfort care and no current treatment. 2. chronic stage IV-V chronic kidney injury, present on admission ?Creatinine has been stable and 5.75 today.? However slowly increasing during the hospital stay.? Patient is comfort care and this is not being monitor. 3. Acute on chronic diastolic heart failure present on admission ProBNP was 82186.? Now only decreased to 32,400 yesterday. Continue furosemide 40 mg IV BID, monitoring creatinine closely.? With blood pressure increase can add Bumex for further diuresis. Has Bradley strict Is and Os 1000 ml fluid restriction Last echo was on February 01 of this year, he has a hyperdynamic left ventricle with ventricular hypertrophy and at that time his EF was 70 plus or minus 5% and an increase in the severity of mitral regurgitation over prior. Patient is comfort care with no active treatment of his diagnoses. 4. 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 ?Patient's mental status much diminished after 8 mg of PO dilaudid given in the ER. Improved with some narcan afterwards but then with severe pain. ?Continue some opiate pain medications, slowly increased given chronic pain. ?Elevated ammonia on admission, likely a component of hepatic encephalopathy as well.? Ammonia level today is 65 which is elevated from a level of 15. No current treatment due to comfort care. 5. History of liver transplant, chronic 6. Chronic back pain w/chronic continuous opioid dependence 7. Concern for urinary tract infection.? On ceftriaxone 1 g IV every 24 hours.? Urine is positive for Gram-negative bacilli currently.? This appears to be a contaminant.? Ceftriaxone being discontinued due to concern about hospital- acquired pneumonia and has been transition to his Zosyn. 8. Hypertension not well controlled.? This has stabilized.? Continue home regular medication unless systolic less than 120 and then hold amlodipine in that case.. 9. Concern for pneumonia.? Has has patchy opacities on recent chest x-ray.? This would be a hospital-acquired pneumonia.? Will switch antibiotic from ceftriaxone to Zosyn.? All antibiotics. Due to comfort care. 10. Troponin is consistently decreasing during this admission. 11. Patient actively dying and scopolamine initiated for rattle. Dispo: Expect patient to pass today. Family making arrangements. Time Spent With Patient Critical Care time: I spent a total of [] minutes of critical care time on this patient's care today; this time is exclusive of procedural time. Quality VTE Deep Vein Thrombosis/Pulmonary Embolism Present on Admission: No
[2022-04-07] MEDS: SCOPOLAMINE 1 PATCH TOP (08:40)
--- NOTE | 2022-04-07 17:29 | PC.NURSE ---
Pt family at bedside, left at 1700, taking all patients belongings with them with the exception of the urn containing the remains of pt dog. Pt at 1717, sister Leigh das. Provider and charge nurse notified, remains to go to [facility] at their earliest convenience. RIP
--- NOTE | 2022-04-07 17:35 | CM.DPNOTE ---
Discharge Planning Note: Per ICU nurse Jeanine, patient after 1700 this evening. Family in room. Ailin Koo RN/DCP
--- NOTE | 2022-04-13 20:11 | PM.DDS.1 ---
Discharge Summary Hospital Course Date of Admission: 04/01/22 03:58 Date of : 04/07/22 Primary care provider: Kevin Porter MD Consults: 04/01/22 00:01 Consult to [facility] Doc[employer]pera Stat Comment: food/housing resources 04/03/22 20:23 Consult After Hours PICC Line RN Routine Comment: 04/03/22 21:18 Consult to Tele-director of special events Routine Comment: Consulting Provider: [employer]ce [employer] Reason for consultation: [employer] services Has provider been notified: Yes 04/03/22 22:52 Consult to Respiratory Therapy Evaluate & Treat Comment: HFNC with end tidal CO2, recheck ABG 30 min. post Physician Instructions: Evaluate and treat 04/04/22 06:50 Consult to [facility] [employer] Routine Comment: Does he have capacity to leave AMA? MOCA 08/1104/05/22 10:38 Consult to Tele-director of special events Routine Comment: Consulting Provider: [employer]ce [employer] Reason for consultation: [employer] services 04/06/22 10:25 Consult to Discharge Planning Routine Comment: Consult to Hospice Referral Urgent Comment: Discharge Diagnosis: 1. Severe anemia likely due to anemia of chronic disease, present on admission 2. chronic stage IV-V chronic kidney injury, present on admission 3. Acute on chronic diastolic heart failure present on admission 4. 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 5. Ammoniemia, Increasing during hospitalization. 6. History of liver transplant, chronic 7. Chronic back pain w/chronic continuous opioid dependence 8. Concern for urinary tract infection.? 9. Hypertension not well controlled.? 10. Concern for hospital-acquired pneumonia.? Hospital Course: Earnest Wilks was 56y.o. male with PMH liver transplant due to Hep C/HCC, CKD stage 4, recent positive COVID test on 01/17 who presented to the hospital with shortness of breath and feeling poorly. Did complain of having headache, no visual changes, he did have difficulties eating and states that he has been drooling off the right side of his mouth for the last 2 days.? He did endorse having shortness of breath but denies chest pain.? He has had nausea and vomiting mostly of digested contents.? He states that he has been having frequent urination due to the Lasix that he takes.? He denies hematuria, hemoptysis, or seeing blood in his stool He has chronic back pain which he continues to take oral Dilaudid for.? He also states that he has noticed that when walking he tends to lean to the right. He has had a history of multiple hospitalizations both at [facility] and at [facility] for hepatic encephalopathy. He also has stage IV/5 chronic kidney disease and on admission his creatinine is over 5 and this continued to subsequently increase during the hospital course. He sees Dr. Lucas, bad credit collector.? He also had an extended stay at [facility] in early February or hepato renal syndrome .? He apparently was there and then left Against Medical Advice despite their recommendations that he go to rehab.? Throughout the hospital course, the creatinine increased and the GFR decreased. He required PRBC transfusions for severe anemia with hemoglobin of 6.8 and subsequently for 7.1 He continued to require oxygenation and without being willing to take regular doses of lactulose the ammonia level increased along with increased signs of encephalopathy with confusion and agitation. He was sedated with intravenous Precedex in the ICU. There was further concern for hospital-acquired pneumonia treated with Zosyn. Without improvement in renal function or symptoms of encephalopathy and expected poor prognosis, the patient was transitioned to comfort care only with discussion with the designated POA, the patient's sister. The patient was kept comfortable and his mother and sister were able to have their final visits with him. Objective Labs Result Diagrams: 04/06/22 08:00 04/06/22 08:00
== END 2022-04-07 17:03 | disposition expired | DRG 194 ==
LOC: ED 04-01 01:43 → AC 04-01 03:59 → ICU 04-04 09:19 → AC 04-06 08:23
PROVIDERS: Family Medicine; Internal Medicine; Neuromusculoskeletal Medicine, Sports Medicine; Admitting Provider Nurse Practitioner Family; Emergency Provider Family Medicine Addiction Medicine; Family Provider Internal Medicine; PCP Internal Medicine; Referring Provider Nurse Practitioner Family; Visit Provider Nurse Practitioner Family
DX: I13.2 Hypertensive heart and chronic kidney disease with heart failure and with stage 5 chronic kidney disease, or end stage renal disease (principal); J96.01 Acute respiratory failure with hypoxia; I50.33 Acute on chronic diastolic (congestive) heart failure; N18.5 Chronic kidney disease, stage 5; F10.239 Alcohol dependence with withdrawal, unspecified; D63.1 Anemia in chronic kidney disease; J18.9 Pneumonia, unspecified organism; G92.8 Other toxic encephalopathy; T40.2X5A Adverse effect of other opioids, initial encounter; K72.90 Hepatic failure, unspecified without coma; F11.20 Opioid dependence, uncomplicated; N17.9 Acute kidney failure, unspecified; G89.29 Other chronic pain; M54.9 Dorsalgia, unspecified; Z66 Do not resuscitate; Z87.891 Personal history of nicotine dependence; Z51.5 Encounter for palliative care; Z94.4 Liver transplant status; Z20.822 Contact with and (suspected) exposure to COVID-19
CPT/HCPCS: 36415; 36430; 36592; 36600; 70450; 70551; 71045; 76700; 80048; 80053; 80076; 80158; 80320; 81001; 82140; 82805; 82962; 83605; 83690; 83735; 83880; 84100; 84145; 84484; 85007; 85025; 85610; 86850; 86900; 86901; 87040; 87635; 93005; 93010; 94660; 94762; 96365; 96367; 96375; 99233; 99285; C9803; P9016; C9113; J0360; J0610; J0696; J1170; J1200; J1630; J1642; J1940; J2060; J2270; J2310; J2354; J2405; J2543; J3010; J7515